=== PATIENT | female | born 1940 | race Caucasian/White ===

== ENCOUNTER 2017-11-16 20:03 | Inpatient (IN) | payer OTHER ==
--- NOTE | 2017-11-16 20:20 | PDOC ---
Rapid Medical Evaluation Chief Complaint: Pain Time Seen by Provider: 11/16/17 20:19 Medical Evaluation: Allergies Allergy/AdvReac Type Severity Reaction Status Date / Time No Known Allergies Allergy Verified 11/16/17 20:18 11/16/17 20:19 I have performed a brief in-person evaluation of this patient. The patient presents with a chief complaint of: months of diffuse abd pain, now to back, worsening today Pertinent physical exam findings: febrile to 101F, tachy to 127 I have ordered the following: septic The patient will proceed to the ED for further evaluation. Discharge Disposition - Diagnosis Abdominal pain - Referrals - Patient Instructions - Post Discharge Activity
[2017-11-16 20:23] VITALS: BMI 27.3
[2017-11-16 20:52] LABS: VENOUS PC02 42.6 mmHg (38-52); VENOUS PH 7.43 (7.32-7.42)
[2017-11-16 21:00] LABS: BASO % 0.3 % (0-2.0); EOS % 0.3 % (0-4.5); HEMATOCRIT 35.9 % (32.4-45.2); HEMOGLOBIN 12.3 GM/dL (10.7-15.3); LYMPH % 12.1 % (8-40); MCH 29.5 pg (25.7-33.7); MCHC 34.2 g/dl (32.0-36.0); MEAN CELL VOLUME 86.3 fl (80-96); MEAN PLT VOLUME 7.5 fl (7.5-11.1); MONO % 6.6 % (3.8-10.2); NEUT % 80.7 % (42.8-82.8); PLATELET COUNT 319 K/MM3 (134-434); RBC 4.16 M/mm3 (3.60-5.2); RDW 14.4 % (11.6-15.6); WHITE BLOOD COUNT 16.9 K/mm3 (4.0-10.0)
[2017-11-16 21:20] LABS: INR 1.11 (0.82-1.09); PROTHROMBIN TIME (PATIENT) 12.5 SEC (9.7-13.0)
[2017-11-16 21:23] LABS: ACTIVATED PTT 33.4 SECONDS (26.9-34.4)
[2017-11-16 21:29] LABS: ALBUMIN 3.5 g/dl (3.4-5.0); ALK PHOS 92 U/L (45-117); ANION GAP 6 (8-16); BILIRUBIN,TOTAL 0.5 mg/dL (0.2-1.0); BLOOD UREA NITROGEN 13 mg/dL (7-18); CALCIUM 8.6 mg/dL (8.5-10.1); CHLORIDE 100 mmol/L (98-107); CO2 28 mmol/L (21-32); CREATININE 0.7 mg/dL (0.55-1.02); GLUCOSE,RANDOM 150 mg/dL (74-106); POTASSIUM 3.9 mmol/L (3.5-5.1); SGOT/AST 9 U/L (15-37); SGPT/ALT 15 U/L (12-78); SODIUM 134 mmol/L (136-145); TOT PROT 7.3 g/dl (6.4-8.2)
--- NOTE | 2017-11-16 22:16 | PDOC ---
History of Present Illness - General Chief Complaint: Pain Stated Complaint: ABD PAIN Time Seen by Provider: 11/16/17 20:19 - History of Present Illness Initial Comments: 11/17/17 02:12 The patient is a 77 year old female with a history of HLD, DM, Diverticulosis who presents for evaluation of abdominal pain. The patient is accompanied by family who assisted in providing the history. They report a several month history of poorly described diffuse abdominal pain with associated diarrhea and nausea. They deny any recent antibiotic use but due note a history of diverticulosis and diverticulitis. They noted worsening pain today with fevers prompting their presentation to the ED for evaluation. The patient otherwise denies chills, SOB, chest pain, vomiting, or changes with urination. Past History - Past Medical History Allergies/Adverse Reactions: Allergies Allergy/AdvReac Type Severity Reaction Status Date / Time No Known Allergies Allergy Verified 11/16/17 20:18 COPD: No Diabetes: (Prediabetes) Hypercholesterolemia: Yes - Suicide/Smoking/Psychosocial Hx Smoking History: Never smoked Have you smoked in the past 12 months: No If you are a former smoker, when did you quit?: 3 yrs ago Information on smoking cessation initiated: No Hx Alcohol Use: No Drug/Substance Use Hx: No Substance Use Type: None Review of Systems - Review of Systems Comments:: 11/17/17 02:43 Constitutional: Fevers. No chills, fatigue, malaise HEENT: No Rhinorrhea, nasal congestion, visual changes Cardiovascular: No chest pain, syncope, palpitations, lightheadedness Respiratory: No Cough, SOB, Hemoptysis, Gastrointestinal: Abdominal pain, Nausea, Diarrhea. No Vomiting, Constipation, Melena Genitourinary: No Dysuria, Frequency, Urgency, Hesitancy, Hematuria, Flank pain Musculoskeletal: No Myalgia, arthralgia Skin: No rashes, itching, bruising, pallor Neurologic: No Headache, Dizziness, Numbness, Weakness, or Tingling Psychiatric: No Hallucinations. No SI or HI *Physical Exam - Vital Signs Last Vital Signs Temp Pulse Resp BP Pulse Ox 100.5 F H 127 H 20 144/69 96 11/16/17 22:12 11/16/17 20:18 11/16/17 20:18 11/16/17 20:18 11/16/17 20:18 - Physical Exam Comments: 11/17/17 02:44 General Appearance: Nourished. No Apparent Distress HEENT: EOMI, LAKHWINDER. No Pharyngeal Erythema, Tonsillar Exudate, Tonsillar Erythema Neck: No Cervical Lymphadenopathy Respiratory/Chest: Lungs Clear, Normal Breath Sounds. No Crackles, Rales, Rhonchi, Wheezing Cardiovascular: Regular Rhythm, Regular Rate. No Murmur, Gallops, Rubs Gastrointestinal/Abdominal: Normal Bowel Sounds, Soft. Diffuse tenderness to palpation worse in the lower abdomen with some mild guarding. No Rebound, Musculoskeletal: No CVA Tenderness Extremity: Normal Capillary Refill Integumentary: Normal Color, Dry, Warm Neurologic: Fully Oriented, Alert, Normal Mood/Affect, Normal Response, Heart Score/ECG Review #1 ECG reviewed & interpreted by me at: 06:14 (Sinus Tachycardia to 112) General ECG Interpretation: Sinus Rhythm, Normal Intervals, No acute ischemic changes ED Treatment Course - LABORATORY CBC & Chemistry Diagram: 11/16/17 20:40 11/16/17 20:40 - ADDITIONAL ORDERS Additional order review: Laboratory Results 11/16/17 11/16/17 11/16/17 20:40 20:40 20:40 VBG pH POC VBG pCO2 POC VBG pO2 Mixed VBG HCO3 Sodium 134 L Potassium 3.9 Chloride 100 Carbon Dioxide 28 Anion Gap 6 L BUN 13 Creatinine 0.7 Creat Clearance w eGFR > 60 Random Glucose 150 H Lactic Acid 1.5 Calcium 8.6 Total Bilirubin 0.5 AST 9 L ALT 15 Alkaline Phosphatase 92 Troponin I < 0.02 Total Protein 7.3 Albumin 3.5 11/16/17 20:40 VBG pH 7.43 H POC VBG pCO2 42.6 POC VBG pO2 31.0 Mixed VBG HCO3 27.6 H Sodium Potassium Chloride Carbon Dioxide Anion Gap BUN Creatinine Creat Clearance w eGFR Random Glucose Lactic Acid Calcium Total Bilirubin AST ALT Alkaline Phosphatase Troponin I Total Protein Albumin 11/16/17 20:40 RBC 4.16 MCV 86.3 MCHC 34.2 RDW 14.4 MPV 7.5 Neutrophils % 80.7 D Lymphocytes % 12.1 D Monocytes % 6.6 Eosinophils % 0.3 D Basophils % 0.3 Medical Decision Making - Medical Decision Making 11/17/17 02:46 The patient is a 77 year old female with a history of HLD, DM, Diverticulosis who presents for evaluation of abdominal pain. Differential includes but is not limited to: Diverticulitis, UTI, Sepsis, Infectious, metabolic derangement. Given the patient's history of diverticulitis, it is likely her current symptoms are due to a diverticulitis. We will obtain a cbc, cmp, troponin, blood cultures, lactate, ua, ekg, chest plain film, and abdomen/pelvis ct to evaluate further. We will treat with iv fluids, zofran, and iv tylenol in the meantime. We will continue to monitor and reassess. 11/17/17 05:18 CBC demonstrates elevated wbc to 16.9. cmp, troponin, lactate, ua are unremarkable. CT abdomen/pelvis demonstrates a cystic mass possibly consistent with an abscess adjacent to the sigmoid colon as preliminarily read by our mason liner radiologist. The patient will require admission for further management at this time. We treat the patient with zosyn here in the ED. We discussed the case with the hospitalist team who accepted the patient for admission. *DC/Admit/Observation/Transfer Diagnosis at time of Disposition: Abdominal pain Qualifiers: Abdominal location: unspecified location Qualified Code(s): R10.9 - Unspecified abdominal pain Sepsis Qualifiers: Sepsis type: sepsis due to unspecified organism Qualified Code(s): A41.9 - Sepsis, unspecified organism - Discharge Dispostion Condition at time of disposition: Stable Admit: Yes - Referrals Referrals: Godfrey Dumont MD [Primary Care Provider] - - Patient Instructions - Post Discharge Activity
--- NOTE | 2017-11-16 22:21 | PDOC ---
Attending Attestation - HPI HPI: 11/17/17 02:14 Patient is a 77 year old female with a significant past medical history of who presents to the ED with complaints of abdominal pain that began earlier this year. Patient reports experiencing gradually worsening abdominal pain that she states began several months ago but has recently begun to radiate to her back. She reports abdominal pain is currently the worst it has ever been, prompting her to come into the ED for further evaluation. Patient reports experiencing associated symptoms of increased fever and diffuse body tenderness, nausea and intermittent diarrhea. . Denies chest pain, Sob, Denies nausea, vomiting. Denies trauma to affected area. Denies constipation, dysuria, hematuria. Denies contact with sick individuals, out of state travelling. Denies any other symptoms. Allergies: NKDA Social history: No smoking. No alcohol. No illicit drugs. Surgical history: None PMD: Dr. Dumont <Jeffy Wallace - Last Filed: 11/17/17 02:14> - Resident Resident Name: Corby Matthews - ED Attending Attestation I have performed the following: I have examined & evaluated the patient, The case was reviewed & discussed with the resident, I agree w/resident's findings & plan, Exceptions are as noted - Physicial Exam PE: GENERAL: Awake, alert, and fully oriented, in no acute distress HEAD: No signs of trauma EYES: PERRLA, EOMI, sclera anicteric, conjunctiva clear ENT: Auricles normal inspection, hearing grossly normal, nares patent, oropharynx clear without exudates. Moist mucosa NECK: Normal ROM, supple, no lymphadenopathy, JVD, or masses LUNGS: Breath sounds equal, clear to auscultation bilaterally. No wheezes, and no crackles HEART: Regular rate and rhythm, normal S1 and S2, no murmurs, rubs or gallops ABDOMEN: Soft, +BLQ tenderness, normoactive bowel sounds. +Guarding, no rebound. No masses EXTREMITIES: Normal range of motion, no edema. No clubbing or cyanosis. No cords, erythema, or tenderness NEUROLOGICAL: Cranial nerves II through XII grossly intact. Normal speech, normal gait SKIN: Warm, Dry, normal turgor, no rashes or lesions noted. - Medical Decision Making Pt presents with abdominal pain. Found to have fever, tachycardia. CT a/p obtained to further evaluate, found to have mass/collection. Treated with abx to cover abdominal bull. Admitted for further management. <Donna Burch - Last Filed: 11/17/17 06:38>
[2017-11-16] MEDS ORDERED: ACETAMINOPHEN 1000 MG/100 ML VIAL (NON FORMULARY) IVPB ONE (22:38)
[2017-11-16] MEDS ORDERED: SODIUM CHLORIDE 1,000 ML IV STA (22:38)
[2017-11-16] MEDS ORDERED: ONDANSETRON 4 MG/2 ML VIAL IVPUSH ONE (22:38)
[2017-11-16] MEDS ORDERED: ACETAMINOPHEN INJECTION 100 ML IVPB ONE (23:00)
[2017-11-16] MEDS ORDERED: ONDANSETRON 4 MG/2 ML VIAL ONE (23:00)
[2017-11-16 23:32] LABS: URINE APPEARANCE SLCLOUDY; URINE BILIRUBIN NEGATIVE (<2.0 mg/dL); URINE COLOR YELLOW; URINE GLUCOSE (UA) NEGATIVE (NEGATIVE); URINE KETONE TRACE (NEGATIVE); URINE LEUK ESTERASE NEGATIVE (NEGATIVE); URINE NITRITE NEGATIVE (NEGATIVE); URINE PROTEIN NEGATIVE (NEGATIVE); URINE UROBILINOGEN NEGATIVE mg/dL (0.2-1.0)
[2017-11-16 23:37] LABS: EPI CELLS RARE /HPF (FEW); URINE MUCUS RARE
[2017-11-17] MEDS ORDERED: PIPERACILLIN/TAZOB 3.375 GM 3.375 GM in DEXTROSE 5%-WATER - 50 ML IVPB ONE (03:42)
[2017-11-17] MEDS ORDERED: PIPERACILLIN/TAZOB 3.375 GM 3.375 GM/50 ML BAG IVPB ONE (04:23)
[2017-11-17] MEDS ORDERED: ONDANSETRON 4 MG/2 ML VIAL IVPUSH PRN (05:23)
[2017-11-17] MEDS: DEXTROSE 5%-0.45% SALINE 1,000 ML IV SCH (05:44)
[2017-11-17] MEDS ORDERED: SODIUM CHLORIDE 1,000 ML IV STA (06:14)
[2017-11-17] MEDS ORDERED: ACETAMINOPHEN 1000 MG/100 ML VIAL (NON FORMULARY) IVPB ONE (06:14)
[2017-11-17] MEDS ORDERED: ACETAMINOPHEN INJECTION 100 ML IVPB ONE (06:21)
--- NOTE | 2017-11-17 08:57 | PN ---
Progress Note (short form) - Note Progress Note: ID Full note dictated Presents with lower abd pain chronic getting worse fever 10lb weight loss TANYA Apparently has a lung mass RLL known about before From [facility] in 30 years complains dysuria Selected Entries 11/16/17 11/17/17 20:18 06:16 Temperature 101.0 F H Pulse Rate 127 H Respiratory 20 Rate Blood Pressure 144/69 O2 Sat by Pulse 96 93 L Oximetry (%) Weight 140 lb Abd soft lower abd discomfort no guarding rebound pain mild-mod CT prelim per ER mass collection Microbiology Laboratory Tests 11/16/17 11/16/17 11/16/17 20:40 20:40 20:40 WBC 16.9 H D Hgb 12.3 Hct 35.9 Plt Count 319 INR 1.11 BUN 13 Creat Clearance w eGFR > 60 Total Bilirubin 0.5 AST 9 L ALT 15 Alkaline Phosphatase 92 Ur Leukocyte Esterase Urine WBC (Auto) Urine RBC (Auto) 11/16/17 23:07 WBC Hgb Hct Plt Count INR BUN Creat Clearance w eGFR Total Bilirubin AST ALT Alkaline Phosphatase Ur Leukocyte Esterase Negative Urine WBC (Auto) 4 Urine RBC (Auto) 5 Assessment Intrabd abscess "mass" Sepsis ? Lung mass Plan Surgical consult Ceftriaxone metronidazole CRP Quant edy Carney MD Problem List - Problems (1) Intra-abdominal abscess Code(s): K65.1 - PERITONEAL ABSCESS (2) Sepsis Code(s): A41.9 - SEPSIS, UNSPECIFIED ORGANISM Qualifiers: Sepsis type: sepsis due to unspecified organism Qualified Code(s): A41.9 - Sepsis, unspecified organism (3) Lung mass Code(s): R91.8 - OTHER NONSPECIFIC ABNORMAL FINDING OF LUNG FIELD
[2017-11-17 09:33] LABS: BASO % 0.3 % (0-2.0); EOS % 0.3 % (0-4.5); HEMATOCRIT 33.1 % (32.4-45.2); HEMOGLOBIN 10.9 GM/dL (10.7-15.3); LYMPH % 11.2 % (8-40); MCH 28.6 pg (25.7-33.7); MEAN CELL VOLUME 86.6 fl (80-96); MEAN PLT VOLUME 7.1 fl (7.5-11.1); MONO % 7.5 % (3.8-10.2); NEUT % 80.7 % (42.8-82.8); PLATELET COUNT 300 K/MM3 (134-434); RBC 3.82 M/mm3 (3.60-5.2); RDW 14.7 % (11.6-15.6); WHITE BLOOD COUNT 19.3 K/mm3 (4.0-10.0)
[2017-11-17] MEDS ORDERED: DEXTROSE 5%-WATER 100 ML IVPB ONE (09:38)
--- NOTE | 2017-11-17 09:40 | CONS ---
INFECTIOUS DISEASE CONSULTATION DATE OF CONSULTATION: 11/17/2017 HISTORY OF PRESENT ILLNESS: This is a 77[facility] who presents to the emergency room with lower abdominal pain which she says has been present for several months. She sees Dr. Sadler as an outpatient, and currently, I am unaware of her prior medical workup for her pain. She also notes a generalized loss of appetite and associated with 10 pounds of weight loss during these preceding months. She came now noting that the abdominal pain became more severe and was associated here with fever and leukocytosis. She also noted urinary burning. She was given a dose of antibiotic in the emergency room, and I am asked to see her for further evaluation and treatment. Incidental mention is made of a CAT scan performed on November 14, 2017, which was a followup to a June 2017 CAT scan which showed a 4 x 2 x 3 cm pleural-based mass-like density in the right lower lobe, unchanged. The etiology of this was unclear. The patient notes a history of heavy smoking for many years, and a PET scan had been recommended with tissue sampling. I am not sure if this was actually performed at this time. PAST MEDICAL HISTORY: Otherwise negative for diabetes, hypertension. PAST SURGICAL HISTORY: No prior surgery. SOCIAL HISTORY: Former smoker. No history of substance abuse, alcohol. FAMILY HISTORY: Noncontributory. REVIEW OF SYSTEMS: Respiratory: No cough, hemoptysis. Cardiac: No chest pain, palpitations, syncope. Gastrointestinal: As noted in history of present illness. No vomiting. No diarrhea. No constipation. Genitourinary: Dysuria. No gross hematuria. Neuromuscular: No joint pain. Skin: No rash. PHYSICAL EXAMINATION: General: She was a well-nourished appearing woman in no acute distress. Vital Signs: Her temperature maximum 101. Currently, the pulse was 110, blood pressure 116/71, respirations 18, O2 saturation 93%. Neck: Supple with no adenopathy. Lungs: Clear to percussion and auscultation. Heart: S1 and S2. Regular rhythm without audible murmur or gallop. Abdomen: Soft. Normoactive bowel sounds. [id number] tenderness noted along the lower abdomen. No guarding or rebound. No palpable mass appreciated. DIAGNOSTIC DATA: The white count was 16.9, hemoglobin 12.3, platelets of 319 with 81% polys, 12 lymphs, 6 monocytes. BUN of 13, creatinine 0.7. Liver enzymes within normal limit. Total protein 7.3. Urinalysis: WBCs 4, RBCs 5, negative leukocyte esterase. ASSESSMENT: A 77-year-old female presents with worsening lower abdominal pain associated with fever and a leukocytosis. Preliminary CAT scan per the ER mentions possible abscess/mass. Official report currently pending. I do not actually see the image itself in the radiology digital file. This needs to be pursued with Radiology for definitive reading. She will be empirically placed on ceftriaxone and metronidazole for possible diverticulitis and intraabdominal abscess. Surgical consultation should be obtained and has been requested with Dr. France. Regarding the mass, this appears incidental to what brought her here now, but nevertheless, given her prior smoking history, is concerning given the possibility of a pulmonary neoplasm. Additionally, she is from [facility], and the possibility of tuberculosis appearing as a mass also considered. PLAN: CRP, blood cultures, urine culture, empiric therapy with ceftriaxone and metronidazole, surgical consultation, and QuantiFERON Gold. Obtain official CT reading of CAT scan. PARKER RODRIGUEZ M.D. SAMANTHA/[id number]
[2017-11-17 10:00] LABS: AMYLASE 18 U/L (25-115); ANION GAP 6 (8-16); BLOOD UREA NITROGEN 10 mg/dL (7-18); CALCIUM 7.9 mg/dL (8.5-10.1); CHLORIDE 104 mmol/L (98-107); CO2 28 mmol/L (21-32); CREATININE 0.7 mg/dL (0.55-1.02); GLUCOSE,RANDOM 154 mg/dL (74-106); LIPASE 50 U/L (73-393); MAGNESIUM 1.7 mg/dL (1.8-2.4); POTASSIUM 3.5 mmol/L (3.5-5.1); SODIUM 138 mmol/L (136-145)
[2017-11-17] MEDS ORDERED: PIPERACILLIN/TAZOB 3.375 GM 3.375 GM in DEXTROSE 5%-WATER - 50 ML IVPB SCH (10:00)
[2017-11-17] MEDS: HEPARIN NA (PORCINE) 5,000 UNITS/ML 1ML VIAL SQ SCH ×2 (10:23→21:35)
[2017-11-17] MEDS: CEFTRIAXONE 2 GM in DEXTROSE 5%-WATER 100 ML IVPB SCH (10:23)
--- NOTE | 2017-11-17 11:10 | PN ---
Progress Note, Physician Chief Complaint: Abdominal pain History of Present Illness: NAD, in bed CT abd preliminary ER report, abdominal abscess - Current Medication List Current Medications: Active Medications Acetaminophen (Ofirmev Injection -) 1,000 mg IVPB Q6H PRN PRN Reason: PAIN OR FEVER Heparin Sodium (Porcine) (Heparin -) 5,000 unit SQ BID [facility] Last Admin: 11/17/17 10:23 Dose: 5,000 unit Dextrose/Sodium Chloride (D5-1/2ns -) 1,000 mls @ 42 mls/hr IV ASDIR LYNN Last Admin: 11/17/17 05:44 Dose: 42 mls/hr Ceftriaxone Sodium 2 gm/ (Dextrose) 100 mls @ 200 mls/hr IVPB DAILY LYNN PRN Reason: Protocol Last Admin: 11/17/17 10:23 Dose: 200 mls/hr Metronidazole (Flagyl 500mg Premixed Ivpb -) 500 mg in 100 mls @ 100 mls/hr IVPB Q8H-IV LYNN Ondansetron HCl (Zofran Injection) 4 mg IVPUSH Q6H PRN PRN Reason: NAUSEA - Objective Vital Signs: Vital Signs Temperature 98.6 F 11/17/17 09:56 Pulse Rate 82 11/17/17 09:56 Respiratory Rate 18 11/17/17 09:56 Blood Pressure 104/53 11/17/17 09:56 O2 Sat by Pulse Oximetry (%) 99 11/17/17 09:56 Constitutional: Yes: Well Nourished, No Distress, Calm Cardiovascular: Yes: Regular Rate and Rhythm Respiratory: Yes: Regular Gastrointestinal: Yes: Normal Bowel Sounds, Soft, Tenderness Musculoskeletal: Yes: WNL Extremities: Yes: WNL Edema: No Peripheral Pulses WNL: Yes Neurological: Yes: Alert, Oriented Psychiatric: Yes: Alert, Oriented Labs: CBC, BMP 11/17/17 09:05 11/17/17 09:05 INR, PTT INR 1.11 (0.82-1.09) 11/16/17 20:40 Problem List - Problems (1) Abdominal pain Assessment/Plan: -CT abdomen final report pending -pain management -IVF -Surgical consult -GI consult -also check CEA, has history of Lung CA Code(s): R10.9 - UNSPECIFIED ABDOMINAL PAIN Qualifiers: Abdominal location: unspecified location Qualified Code(s): R10.9 - Unspecified abdominal pain (2) Intra-abdominal abscess Assessment/Plan: -CT abdomen final report pending -pain management -IVF -Surgical consult -NPO IV abx -ID consult appreciated Code(s): K65.1 - PERITONEAL ABSCESS (3) Sepsis Assessment/Plan: -IVF -repeat labs in AM Code(s): A41.9 - SEPSIS, UNSPECIFIED ORGANISM Qualifiers: Sepsis type: sepsis due to unspecified organism Qualified Code(s): A41.9 - Sepsis, unspecified organism (4) Leukocytosis Assessment/Plan: -monitor trend -ID conult -IV abx Code(s): D72.829 - ELEVATED WHITE BLOOD CELL COUNT, UNSPECIFIED Assessment/Plan see problem list DVT prophylaxis spoke to daughter over the phone, she will bring in patient's medication list for reconciliation
--- NOTE | 2017-11-17 11:14 | HP ---
Admitting History and Physical - Primary Care Physician PCP: Reva Sadler - Admission Chief Complaint: ABDOMINAL PAIN History of Present Illness: The patient is a 77 year old female with a history of HLD, DM, Diverticulosis who presents for evaluation of abdominal pain. The patient is accompanied by family who assisted in providing the history. They report a several month history of poorly described diffuse abdominal pain with associated diarrhea and nausea. They deny any recent antibiotic use but due note a history of diverticulosis and diverticulitis. They noted worsening pain today with fevers prompting their presentation to the ED for evaluation. The patient otherwise denies chills, SOB, chest pain, vomiting, or changes with urination. History Source: Patient, Medical Record Limitations to Obtaining History: No Limitations - Past Medical History ...: No - Smoking History Smoking history: Former smoker Have you smoked in the past 12 months: No If you are a former smoker, when did you quit?: 3 yrs ago - Alcohol/Substance Use Hx Alcohol Use: No Home Medications - Allergies Allergies/Adverse Reactions: Allergies Allergy/AdvReac Type Severity Reaction Status Date / Time No Known Allergies Allergy Verified 11/16/17 20:18 Review of Systems - Review of Systems Constitutional: reports: No Symptoms Eyes: reports: No Symptoms HENT: reports: No Symptoms Neck: reports: No Symptoms Cardiovascular: reports: No Symptoms Respiratory: reports: No Symptoms Gastrointestinal: reports: Abdominal Pain Genitourinary: reports: No Symptoms Breasts: reports: No Symptoms Reported Musculoskeletal: reports: No Symptoms Integumentary: reports: No Symptoms Neurological: reports: No Symptoms Endocrine: reports: No Symptoms Hematology/Lymphatic: reports: No Symptoms Psychiatric: reports: No Symptoms Physical Examination Vital Signs: Vital Signs Temperature 98.6 F 11/17/17 09:56 Pulse Rate 82 11/17/17 09:56 Respiratory Rate 18 11/17/17 09:56 Blood Pressure 104/53 11/17/17 09:56 O2 Sat by Pulse Oximetry (%) 99 11/17/17 09:56 Constitutional: Yes: Well Nourished, No Distress, Calm Cardiovascular: Yes: Regular Rate and Rhythm Respiratory: Yes: Regular Gastrointestinal: Yes: Normal Bowel Sounds, Soft, Tenderness Musculoskeletal: Yes: WNL Extremities: Yes: WNL Edema: No Peripheral Pulses WNL: Yes Neurological: Yes: Alert, Oriented Psychiatric: Yes: Alert, Oriented Labs: CBC, BMP 11/17/17 09:05 11/17/17 09:05 Imaging - Results Cat Scan: Pending (FINAL REPORT) Problem List - Problems (1) Abdominal pain Assessment/Plan: -CT abdomen final report pending -pain management -IVF -Surgical consult -GI consult -also check CEA Code(s): R10.9 - UNSPECIFIED ABDOMINAL PAIN Qualifiers: Abdominal location: unspecified location Qualified Code(s): R10.9 - Unspecified abdominal pain (2) Intra-abdominal abscess Assessment/Plan: -CT abdomen final report pending -pain management -IVF -Surgical consult -NPO -IV abx -ID consult appreciated Code(s): K65.1 - PERITONEAL ABSCESS (3) Sepsis Assessment/Plan: -IVF -repeat labs in AM Code(s): A41.9 - SEPSIS, UNSPECIFIED ORGANISM Qualifiers: Sepsis type: sepsis due to unspecified organism Qualified Code(s): A41.9 - Sepsis, unspecified organism (4) Leukocytosis Assessment/Plan: -monitor trend -ID conult -IV abx Code(s): D72.829 - ELEVATED WHITE BLOOD CELL COUNT, UNSPECIFIED Assessment/Plan see problem list DVT prophylaxis spoke to daughter over the phone, she will bring in patient's medication list for reconciliation
--- NOTE | 2017-11-17 11:30 | EKG ---
Test Reason : Blood Pressure : / mmHG Vent. Rate : 112 BPM Atrial Rate : 112 BPM P-R Int : 142 ms QRS Dur : 076 ms QT Int : 320 ms P-R-T Axes : 072 027 079 degrees QTc Int : 436 ms SINUS TACHYCARDIA OTHERWISE NORMAL ECG NO PREVIOUS ECGS AVAILABLE Confirmed by MINA REECE MD ([id number]) on 11/17/2017 11:30:11 AM Referred By: Confirmed By:MINA REECE MD
[2017-11-17] MEDS: morphine SULFATE 4 MG/ML VIAL IVPUSH PRN (12:02)
--- NOTE | 2017-11-17 13:15 | CONSULT ---
- Consultation REQUESTING PROVIDER: Jim SALEEM CONSULT REQUEST: We have been asked to surgically evaluate this patient for LLQ abdominal pain of ? 6 months duration; now worse. PCP:Reva Sadler HISTORY OF PRESENT ILLNESS:77 y/o female w/known diverticular disease presented w/n and sharp unrelenting LLQ pain of > 6 hours duration; she came to the ED for evaluation; she states she is slightly better since admission; she has never had this before; she denies any other GI//SYSTEMS MANAGER problem. PMHx: none PSHx: TAHBSO Allergies Allergy/AdvReac Type Severity Reaction Status Date / Time No Known Allergies Allergy Verified 11/16/17 20:18 PHYSICAL EXAM: GENERAL: Awake, alert, and fully oriented, in slight distress. HEAD: Normal with no signs of trauma. EYES: sclera anicteric, conjunctiva clear. NECK: Normal ROM, supple without lymphadenopathy, JVD, or masses. ABDOMEN: Soft, LLQ tender w/guarding, not distended, normoactive bowel sounds, no rebound, no masses. No organomegaly. No hernias; healed surgical scar. MUSCULOSKELETAL: Normal ROM at all joints. No bony deformities or tenderness. No CVA tenderness. UPPER EXTREMITIES: 2+ pulses, warm, well-perfused. No cyanosis. Cap refill <2 seconds. No peripheral edema. LOWER EXTREMITIES: 2+ pulses, warm, well-perfused. No calf tenderness. No peripheral edema. NEUROLOGICAL: Normal speech, gait not observed. PSYCH: Cooperative. Good eye contact. Appropriate mood and affect. SKIN: Warm, dry, normal turgor, no rashes or lesions noted. Vital Signs Temperature 98.6 F 11/17/17 09:56 Pulse Rate 82 11/17/17 09:56 Respiratory Rate 18 11/17/17 09:56 Blood Pressure 104/53 11/17/17 09:56 O2 Sat by Pulse Oximetry (%) 99 11/17/17 09:56 Lab Results WBC 19.3 K/mm3 (4.0-10.0) H 11/17/17 09:05 RBC 3.82 M/mm3 (3.60-5.2) 11/17/17 09:05 Hgb 10.9 GM/dL (10.7-15.3) D 11/17/17 09:05 Hct 33.1 % (32.4-45.2) 11/17/17 09:05 MCV 86.6 fl (80-96) 11/17/17 09:05 MCHC 33.0 g/dl (32.0-36.0) 11/17/17 09:05 RDW 14.7 % (11.6-15.6) 11/17/17 09:05 Plt Count 300 K/MM3 (134-434) 11/17/17 09:05 Sodium 138 mmol/L (136-145) 11/17/17 09:05 Potassium 3.5 mmol/L (3.5-5.1) 11/17/17 09:05 Chloride 104 mmol/L (98-107) 11/17/17 09:05 Carbon Dioxide 28 mmol/L (21-32) 11/17/17 09:05 Anion Gap 6 (8-16) L 11/17/17 09:05 BUN 10 mg/dL (7-18) 11/17/17 09:05 Creatinine 0.7 mg/dL (0.55-1.02) 11/17/17 09:05 Random Glucose 154 mg/dL (74-106) H 11/17/17 09:05 Calcium 7.9 mg/dL (8.5-10.1) L 11/17/17 09:05 INR 1.11 (0.82-1.09) 11/16/17 20:40 CT scan a/p reviewed IMP: Sigmoid diverticulitis w/localized perforation and abscess formation PLAN: Suggest NPO/IVF/IVABS/evaluation for IR drainage; d/w patient in [place] all that precedes; in adddition d/w her if she does not respond to conservative non operative tx. she will need a Hartmans procedure; she understands this; will f/u. Ghassan France MD FACS Visit type - Case Type Case Type: ED Admission - Emergency Emergency Visit: Yes ED Registration Date: 11/17/17 Care time: The patient presented to the Emergency Department on the above date and was hospitalized for further evaluation of their emergent condition. - New patient This patient is new to me today: Yes Date on this admission: 11/17/17 - Critical Care Critical Care patient: No
[2017-11-17] MEDS: ACETAMINOPHEN 1000 MG/100 ML VIAL (NON FORMULARY) IVPB PRN (13:59)
--- NOTE | 2017-11-17 14:20 | CON.GI ---
Consult Consult Specialty:: Gastroenterology Referred by:: Dr Sadler - History of Present Illness History of Present Illness: 77 y/o F has chronic lower abdominal pain which has become worse yesterday, / unable to walk, no nausea and no vomiting. CT done which revealed a 5cm pelvic abscess associated with worsenning WBC 19,000 and Tmax of 102 - History Source History Provided By: Patient - Past Medical History ...: No - Alcohol/Substance Use Hx Alcohol Use: No - Smoking History Smoking history: Former smoker Have you smoked in the past 12 months: No If you are a former smoker, when did you quit?: 3 yrs ago Home Medications - Allergies Allergies/Adverse Reactions: Allergies Allergy/AdvReac Type Severity Reaction Status Date / Time No Known Allergies Allergy Verified 11/16/17 20:18 - Home Medications Home Medications: Ambulatory Orders Oxycodone HCl/Acetaminophen [Oxycodone-Acetaminophen 5-325] 1 each PO Q6H PRN Physical Exam-GI Vital Signs: Vital Signs Temperature 98.6 F 11/17/17 09:56 Pulse Rate 82 11/17/17 09:56 Respiratory Rate 18 11/17/17 09:56 Blood Pressure 104/53 11/17/17 09:56 O2 Sat by Pulse Oximetry (%) 99 11/17/17 09:56 Constitutional: Yes: Well Nourished, Poor Hygeine HENT: Yes: Atraumatic Neck: Yes: Supple, Tenderness Respiratory: Yes: CTA Bilaterally ...Palpate: Yes: Guarding, Soft, Tenderness (llq). No: Hepatomegaly, Mass, Pulsatile Mass, Splenomegaly Labs: CBC, BMP 11/17/17 09:05 11/17/17 09:05 INR, PTT INR 1.11 (0.82-1.09) 11/16/17 20:40 Problem List - Problems (1) Pelvic abscess Assessment/Plan: patient will need percutaneous drainage by IR discussed with Dr Gomez agrees to have percutaneous drainage discussed clinical condtion and necessity of the procedure with the whole family spent more than 45 min to coordinate care Code(s): [id number] -
[2017-11-18] MEDS: ACETAMINOPHEN 1000 MG/100 ML VIAL (NON FORMULARY) IVPB PRN ×2 (01:27→17:25)
[2017-11-18] MEDS: DEXTROSE 5%-0.45% SALINE 1,000 ML IV SCH ×2 (04:00→21:07)
--- NOTE | 2017-11-18 08:31 | PN ---
Progress Note, Physician Chief Complaint: ID Marked clinical improvement Ceftriaxone and metronidazole - Current Medication List Current Medications: Active Medications Acetaminophen (Ofirmev Injection -) 1,000 mg IVPB Q6H PRN PRN Reason: PAIN OR FEVER Last Admin: 11/18/17 01:27 Dose: 1,000 mg Heparin Sodium (Porcine) (Heparin -) 5,000 unit SQ BID LYNN Last Admin: 11/17/17 21:35 Dose: 5,000 unit Dextrose/Sodium Chloride (D5-1/2ns -) 1,000 mls @ 42 mls/hr IV ASDIR LYNN Last Admin: 11/18/17 04:00 Dose: 42 mls/hr Ceftriaxone Sodium 2 gm/ (Dextrose) 100 mls @ 200 mls/hr IVPB DAILY LYNN PRN Reason: Protocol Last Admin: 11/17/17 10:23 Dose: 200 mls/hr Metronidazole (Flagyl 500mg Premixed Ivpb -) 500 mg in 100 mls @ 100 mls/hr IVPB Q8H-IV LYNN Last Admin: 11/18/17 01:27 Dose: 100 mls/hr Morphine Sulfate (Morphine Sulfate) 1 mg IVPUSH Q4H PRN PRN Reason: PAIN LEVEL 6-10 Last Admin: 11/17/17 12:02 Dose: 1 mg Ondansetron HCl (Zofran Injection) 4 mg IVPUSH Q6H PRN PRN Reason: NAUSEA - Objective Vital Signs: Vital Signs Temperature 99.3 F 11/18/17 05:00 Pulse Rate 87 11/18/17 05:00 Respiratory Rate 18 11/18/17 05:00 Blood Pressure 98/49 11/18/17 05:00 O2 Sat by Pulse Oximetry (%) 100 11/17/17 20:55 Constitutional: Yes: Well Nourished, No Distress Eyes: Yes: WNL, Conjunctiva Clear HENT: Yes: WNL, Atraumatic Neck: Yes: WNL, Supple Cardiovascular: Yes: Regular Rate and Rhythm, Murmur, S1, S2 Respiratory: Yes: WNL, Regular, CTA Bilaterally. No: Rales, Rhonchi Gastrointestinal: Yes: WNL, Normal Bowel Sounds, Soft, Tenderness, Epigastrium, Other (Drain left side). No: Tenderness Edema: No Labs: CBC, BMP 11/17/17 09:05 11/17/17 09:05 INR, PTT INR 1.11 (0.82-1.09) 11/16/17 20:40 Problem List - Problems (1) Intra-abdominal abscess Code(s): K65.1 - PERITONEAL ABSCESS (2) Sepsis Code(s): A41.9 - SEPSIS, UNSPECIFIED ORGANISM Qualifiers: Sepsis type: sepsis due to unspecified organism Qualified Code(s): A41.9 - Sepsis, unspecified organism (3) Lung mass Code(s): R91.8 - OTHER NONSPECIFIC ABNORMAL FINDING OF LUNG FIELD Assessment/Plan Microbiology 11/16/17 20:40 Blood - Peripheral Venous Blood Culture - Preliminary NO GROWTH OBTAINED AFTER 24 HOURS, INCUBATION TO CONTINUE FOR 4 DAYS. 11/16/17 20:40 Blood - Peripheral Venous Blood Culture - Preliminary NO GROWTH OBTAINED AFTER 24 HOURS, INCUBATION TO CONTINUE FOR 4 DAYS. Laboratory Tests 11/16/17 11/17/17 11/17/17 20:40 09:05 09:05 WBC 19.3 H Hgb 10.9 D Hct 33.1 Plt Count 300 BUN 10 Creatinine 0.7 Random Glucose 154 H Lactic Acid 1.5 C-Reactive Protein 16.3 H Assessment Perforated diverticulitis abscess improved Plan Antibiotics as ordered Angelika SCHUMACHER
[2017-11-18] MEDS ORDERED: DEXTROSE 5%-WATER 100 ML IVPB ONE (10:00)
[2017-11-18] MEDS: HEPARIN NA (PORCINE) 5,000 UNITS/ML 1ML VIAL SQ SCH ×2 (10:02→21:06)
[2017-11-18] MEDS: CEFTRIAXONE 2 GM in DEXTROSE 5%-WATER 100 ML IVPB SCH (10:02)
--- NOTE | 2017-11-18 10:14 | PN ---
Progress Note, Physician Chief Complaint: Abdominal pain Abdominal Abscess History of Present Illness: NAD, in bed marked improvement in pain and clinical condition Abscess drained by IR yesterday, NIKOLAS in place- draining moderate amount of serosanguinous fluid seen by ID on IV abx - Current Medication List Current Medications: Active Medications Acetaminophen (Ofirmev Injection -) 1,000 mg IVPB Q6H PRN PRN Reason: PAIN OR FEVER Last Admin: 11/18/17 01:27 Dose: 1,000 mg Heparin Sodium (Porcine) (Heparin -) 5,000 unit SQ BID L[facility]NN Last Admin: 11/18/17 10:02 Dose: 5,000 unit Dextrose/Sodium Chloride (D5-1/2ns -) 1,000 mls @ 42 mls/hr IV ASDIR [facility] Last Admin: 11/18/17 04:00 Dose: 42 mls/hr Ceftriaxone Sodium 2 gm/ (Dextrose) 100 mls @ 200 mls/hr IVPB DAILY L[facility]NN PRN Reason: Protocol Last Admin: 11/18/17 10:02 Dose: 200 mls/hr Metronidazole (Flagyl 500mg Premixed Ivpb -) 500 mg in 100 mls @ 100 mls/hr IVPB Q8H-IV [facility] Last Admin: 11/18/17 01:27 Dose: 100 mls/hr Morphine Sulfate (Morphine Sulfate) 1 mg IVPUSH Q4H PRN PRN Reason: PAIN LEVEL 6-10 Last Admin: 11/17/17 12:02 Dose: 1 mg Ondansetron HCl (Zofran Injection) 4 mg IVPUSH Q6H PRN PRN Reason: NAUSEA - Objective Vital Signs: Vital Signs Temperature 99.3 F 11/18/17 05:00 Pulse Rate 87 11/18/17 05:00 Respiratory Rate 18 11/18/17 05:00 Blood Pressure 98/49 11/18/17 05:00 O2 Sat by Pulse Oximetry (%) 100 11/17/17 20:55 Constitutional: Yes: Well Nourished, No Distress, Calm Cardiovascular: Yes: Regular Rate and Rhythm Respiratory: Yes: Regular Gastrointestinal: Yes: Normal Bowel Sounds, Soft Musculoskeletal: Yes: Muscle Weakness Extremities: Yes: WNL Edema: No Peripheral Pulses WNL: Yes Wound/Incision: Yes: Dressing Dry and Intact, Other (NIKOLAS draining) Neurological: Yes: Alert, Oriented Psychiatric: Yes: Alert, Oriented Labs: CBC, BMP 11/17/17 09:05 11/17/17 09:05 INR, PTT INR 1.11 (0.82-1.09) 11/16/17 20:40 Problem List - Problems (1) Abdominal pain Assessment/Plan: markedly improved -morphine IVP PRN Code(s): R10.9 - UNSPECIFIED ABDOMINAL PAIN Qualifiers: Abdominal location: unspecified location Qualified Code(s): R10.9 - Unspecified abdominal pain (2) Intra-abdominal abscess Assessment/Plan: -NIKOLAS drain -monitor output -pain management -IV abx -GI and ID on board Code(s): K65.1 - PERITONEAL ABSCESS (3) Sepsis Assessment/Plan: -repeat labs, monitor trend -low grade fevers overnight Code(s): A41.9 - SEPSIS, UNSPECIFIED ORGANISM Qualifiers: Sepsis type: sepsis due to unspecified organism Qualified Code(s): A41.9 - Sepsis, unspecified organism (4) Leukocytosis Assessment/Plan: -repeat labs Code(s): D72.829 - ELEVATED WHITE BLOOD CELL COUNT, UNSPECIFIED Assessment/Plan see problem list Physical therapy
[2017-11-18 11:02] LABS: BASO % 0.6 % (0-2.0); EOS % 2.3 % (0-4.5); HEMATOCRIT 32.7 % (32.4-45.2); HEMOGLOBIN 10.9 GM/dL (10.7-15.3); LYMPH % 12.7 % (8-40); MCH 29.2 pg (25.7-33.7); MCHC 33.5 g/dl (32.0-36.0); MEAN CELL VOLUME 87.1 fl (80-96); MEAN PLT VOLUME 6.9 fl (7.5-11.1); MONO % 5.2 % (3.8-10.2); NEUT % 79.2 % (42.8-82.8); PLATELET COUNT 256 K/MM3 (134-434); RBC 3.75 M/mm3 (3.60-5.2); RDW 14.7 % (11.6-15.6); WHITE BLOOD COUNT 17.2 K/mm3 (4.0-10.0)
[2017-11-18 11:31] LABS: CHLORIDE 105 mmol/L (98-107); POTASSIUM 3.5 mmol/L (3.5-5.1); SODIUM 139 mmol/L (136-145)
[2017-11-18 11:37] LABS: ALBUMIN 2.5 g/dl (3.4-5.0); ALK PHOS 84 U/L (45-117); ANION GAP 5 (8-16); BILIRUBIN,TOTAL 0.3 mg/dL (0.2-1.0); BLOOD UREA NITROGEN 8 mg/dL (7-18); CALCIUM 7.9 mg/dL (8.5-10.1); CO2 29 mmol/L (21-32); CREATININE 0.6 mg/dL (0.55-1.02); GLUCOSE,RANDOM 141 mg/dL (74-106); SGOT/AST 7 U/L (15-37); SGPT/ALT 11 U/L (12-78); TOT PROT 5.7 g/dl (6.4-8.2)
--- NOTE | 2017-11-18 14:09 | PN ---
GI Progress Note Subjective: s/p pelvic abscess drainage, abdominal pain is less, Tmax 98, has diarrhea after clear liquids - Objective Vital Signs: Vital Signs Temperature 98.6 F 11/18/17 09:00 Pulse Rate 73 11/18/17 09:00 Respiratory Rate 18 11/18/17 09:00 Blood Pressure 127/54 11/18/17 09:00 O2 Sat by Pulse Oximetry (%) 100 11/18/17 09:00 Constitutional: Well Nourished Eyes: Yes: Conjunctiva Clear HENT: Yes: Atraumatic Neck: Yes: Supple Cardiovascular: Yes: Regular Rate and Rhythm Respiratory: Yes: CTA Bilaterally ...Auscultate: Yes: Normoactive Bowel Sounds ...Palpate: Yes: Soft, Tenderness (rebound tenderness tresolved, direct tenderness llq , improved from yesterday). No: Firm/Rigid, Guarding, Hepatomegaly, Mass Labs: CBC, BMP 11/18/17 10:45 11/18/17 10:45 INR, PTT INR 1.11 (0.82-1.09) 11/16/17 20:40 Problem List - Problems (1) Pelvic abscess Assessment/Plan: resolving' R> continue IV hydration and antibiotics discussed with her daughter clinical findings today Code(s): [id number] -
[2017-11-18] MEDS: morphine SULFATE 4 MG/ML VIAL IVPUSH PRN (17:03)
--- NOTE | 2017-11-18 20:55 | PN ---
Progress Note (short form) - Note Progress Note: Attending Surgeon Feels better; tolerated liquids S/P IRD of diverticular abscess VSS AF abdo-soft; LLQ tenderness present but less; NIKOLAS drainage seropurulent IMP: improved PLAN: Continue present tx. Ghassan France MD FACS
[2017-11-19 07:33] LABS: BASO % 0.3 % (0-2.0); EOS % 6.4 % (0-4.5); HEMATOCRIT 33.9 % (32.4-45.2); HEMOGLOBIN 11.2 GM/dL (10.7-15.3); LYMPH % 16.1 % (8-40); MCH 28.7 pg (25.7-33.7); MEAN PLT VOLUME 7.5 fl (7.5-11.1); MONO % 4.8 % (3.8-10.2); NEUT % 72.4 % (42.8-82.8); PLATELET COUNT 293 K/MM3 (134-434); RBC 3.89 M/mm3 (3.60-5.2); RDW 14.4 % (11.6-15.6)
[2017-11-19 07:57] LABS: ALBUMIN 2.6 g/dl (3.4-5.0); ALK PHOS 91 U/L (45-117); ANION GAP 5 (8-16); BILIRUBIN,TOTAL 0.3 mg/dL (0.2-1.0); BLOOD UREA NITROGEN 6 mg/dL (7-18); CALCIUM 7.8 mg/dL (8.5-10.1); CHLORIDE 107 mmol/L (98-107); CO2 27 mmol/L (21-32); CREATININE 0.5 mg/dL (0.55-1.02); GLUCOSE,RANDOM 109 mg/dL (74-106); POTASSIUM 3.4 mmol/L (3.5-5.1); SGPT/ALT 9 U/L (12-78); SODIUM 139 mmol/L (136-145)
[2017-11-19 07:59] LABS: SGOT/AST 9 U/L (15-37); TOT PROT 5.7 g/dl (6.4-8.2)
[2017-11-19] MEDS: DEXTROSE 5%-0.45% SALINE 1,000 ML IV SCH ×2 (08:50→22:20)
[2017-11-19] MEDS ORDERED: DEXTROSE 5%-WATER 100 ML IVPB ONE (08:57)
[2017-11-19] MEDS: HEPARIN NA (PORCINE) 5,000 UNITS/ML 1ML VIAL SQ SCH ×2 (09:08→22:21)
[2017-11-19] MEDS: morphine SULFATE 4 MG/ML VIAL IVPUSH PRN (09:08)
[2017-11-19] MEDS: CEFTRIAXONE 2 GM in DEXTROSE 5%-WATER 100 ML IVPB SCH (09:08)
--- NOTE | 2017-11-19 10:33 | PN ---
Progress Note, Physician Chief Complaint: ID Overall much better Ceftriaxone and metronidazole - Current Medication List Current Medications: Active Medications Acetaminophen (Ofirmev Injection -) 1,000 mg IVPB Q6H PRN PRN Reason: PAIN OR FEVER Last Admin: 11/18/17 17:25 Dose: 1,000 mg Heparin Sodium (Porcine) (Heparin -) 5,000 unit SQ BID LYNN Last Admin: 11/19/17 09:08 Dose: 5,000 unit Dextrose/Sodium Chloride (D5-1/2ns -) 1,000 mls @ 42 mls/hr IV ASDIR LYNN Last Admin: 11/19/17 08:50 Dose: Not Given Ceftriaxone Sodium 2 gm/ (Dextrose) 100 mls @ 200 mls/hr IVPB DAILY L[facility]NN PRN Reason: Protocol Last Admin: 11/19/17 09:08 Dose: 200 mls/hr Metronidazole (Flagyl 500mg Premixed Ivpb -) 500 mg in 100 mls @ 100 mls/hr IVPB Q8H-IV [facility] Last Admin: 11/19/17 09:08 Dose: 100 mls/hr Morphine Sulfate (Morphine Sulfate) 1 mg IVPUSH Q4H PRN PRN Reason: PAIN LEVEL 6-10 Last Admin: 11/19/17 09:08 Dose: 1 mg Ondansetron HCl (Zofran Injection) 4 mg IVPUSH Q6H PRN PRN Reason: NAUSEA - Objective Vital Signs: Vital Signs Temperature 98.3 F 11/19/17 06:19 Pulse Rate 78 11/19/17 06:19 Respiratory Rate 20 11/19/17 06:19 Blood Pressure 114/62 11/19/17 06:19 O2 Sat by Pulse Oximetry (%) 98 11/18/17 20:30 Constitutional: Yes: Well Nourished, No Distress HENT: Yes: WNL, Atraumatic Neck: Yes: WNL, Supple Respiratory: Yes: WNL, Regular, CTA Bilaterally Gastrointestinal: Yes: Soft, Other (Tneder LLQ drain) Labs: CBC, BMP 11/19/17 06:03 11/19/17 06:03 INR, PTT INR 1.11 (0.82-1.09) 11/16/17 20:40 Problem List - Problems (1) Intra-abdominal abscess Code(s): K65.1 - PERITONEAL ABSCESS (2) Sepsis Code(s): A41.9 - SEPSIS, UNSPECIFIED ORGANISM Qualifiers: Sepsis type: sepsis due to unspecified organism Qualified Code(s): A41.9 - Sepsis, unspecified organism (3) Lung mass Code(s): R91.8 - OTHER NONSPECIFIC ABNORMAL FINDING OF LUNG FIELD Assessment/Plan Microbiology 11/17/17 17:00 Abscess Gram Stain - Final 11/17/17 17:00 Abscess Body Fluid Culture - Preliminary Non Lactose Fermenting Gnb Non Lactose Fermenting Gnb#2 11/16/17 20:40 Blood - Peripheral Venous Blood Culture - Preliminary NO GROWTH OBTAINED AFTER 48 HOURS, INCUBATION TO CONTINUE FOR 3 DAYS. 11/16/17 20:40 Blood - Peripheral Venous Blood Culture - Preliminary NO GROWTH OBTAINED AFTER 48 HOURS, INCUBATION TO CONTINUE FOR 3 DAYS. Laboratory Tests 11/18/17 11/19/17 10:45 06:03 WBC 17.2 H 13.0 H Hgb 11.2 Hct 33.9 Plt Count 293 Assessment Diverticulitis with abscess Post insertion drain Plan Continue current therapy pending c/s Angelika SCHUMACHER
[2017-11-19] MEDS ORDERED: ACETAMINOPHEN 325 MG TABLET (FP) PO PRN (12:45)
[2017-11-19] MEDS ORDERED: morphine SULFATE 4 MG/ML VIAL IVPUSH PRN (13:09)
--- NOTE | 2017-11-19 13:15 | PN ---
Progress Note, Physician Chief Complaint: s/p diverticular abscess drain on iv abx complaining of epigastric pain - Current Medication List Current Medications: Active Medications Acetaminophen (Tylenol -) 650 mg PO Q6H PRN PRN Reason: PAIN OR FEVER Heparin Sodium (Porcine) (Heparin -) 5,000 unit SQ BID [facility] Last Admin: 11/19/17 09:08 Dose: 5,000 unit Dextrose/Sodium Chloride (D5-1/2ns -) 1,000 mls @ 42 mls/hr IV ASDIR [facility] Last Admin: 11/19/17 08:50 Dose: Not Given Ceftriaxone Sodium 2 gm/ (Dextrose) 100 mls @ 200 mls/hr IVPB DAILY LYNN PRN Reason: Protocol Last Admin: 11/19/17 09:08 Dose: 200 mls/hr Metronidazole (Flagyl 500mg Premixed Ivpb -) 500 mg in 100 mls @ 100 mls/hr IVPB Q8H-IV [facility] Last Admin: 11/19/17 09:08 Dose: 100 mls/hr Morphine Sulfate (Morphine Sulfate) 2 mg IVPUSH Q4H PRN PRN Reason: PAIN LEVEL 6-10 Ondansetron HCl (Zofran Injection) 4 mg IVPUSH Q6H PRN PRN Reason: NAUSEA - Objective Vital Signs: Vital Signs Temperature 98.3 F 11/19/17 09:00 Pulse Rate 80 11/19/17 09:00 Respiratory Rate 20 11/19/17 09:00 Blood Pressure 121/51 11/19/17 09:00 O2 Sat by Pulse Oximetry (%) 96 11/19/17 09:00 Constitutional: Yes: Calm Neck: Yes: Trachea Midline Cardiovascular: Yes: Regular Rate and Rhythm, S1, S2 Respiratory: Yes: CTA Bilaterally Gastrointestinal: Yes: Tenderness, Epigastrium, Other (LLQ drain serosanginous drainage) Edema: No Neurological: Yes: Alert, Oriented Labs: CBC, BMP 11/19/17 06:03 11/19/17 06:03 INR, PTT INR 1.11 (0.82-1.09) 11/16/17 20:40 Problem List - Problems (1) Intra-abdominal abscess Assessment/Plan: iv abx- s/p drain leukocystosis trending down Microbiology 11/17/17 17:00 Abscess Gram Stain - Final 11/17/17 17:00 Abscess Body Fluid Culture - Preliminary Non Lactose Fermenting Gnb Non Lactose Fermenting Gnb#2 Code(s): K65.1 - PERITONEAL ABSCESS (2) Leukocytosis Assessment/Plan: on iv abx awaiting final cultures Code(s): D72.829 - ELEVATED WHITE BLOOD CELL COUNT, UNSPECIFIED (3) Abdominal pain Assessment/Plan: iv protonix clear liquid diet morphine increase to 2mg Code(s): R10.9 - UNSPECIFIED ABDOMINAL PAIN Qualifiers: Abdominal location: unspecified location Qualified Code(s): R10.9 - Unspecified abdominal pain (4) Electrolyte abnormality Assessment/Plan: replete potassium recheck Magnesium Code(s): E87.8 - OTH DISORDERS OF ELECTROLYTE AND FLUID BALANCE, NEC
[2017-11-19] MEDS: PANTOPRAZOLE SODIUM 40 MG VIAL IVPUSH SCH (13:24)
[2017-11-19] MEDS ORDERED: POTASSIUM CHLORIDE ORAL LIQUID 20 MEQ/15 ML PO ONE (13:30)
--- NOTE | 2017-11-19 14:50 | PN ---
Progress Note (short form) - Note Progress Note: Attending Surgeon No c/o; tolerating diet; much less pain; liquid stools VSS AF abdo-benign; drain in place; minimal seropurulent output WBC 13.0 cultures noted IMP: doing well PLAN: Repeat CT later this week; continue present tx. Ghassan France MD FACS.
[2017-11-20 08:02] LABS: BASO % 0.6 % (0-2.0); EOS % 13.8 % (0-4.5); HEMATOCRIT 33.7 % (32.4-45.2); HEMOGLOBIN 11.4 GM/dL (10.7-15.3); LYMPH % 21.9 % (8-40); MCH 29.2 pg (25.7-33.7); MCHC 33.8 g/dl (32.0-36.0); MEAN CELL VOLUME 86.4 fl (80-96); MEAN PLT VOLUME 7.3 fl (7.5-11.1); MONO % 6.3 % (3.8-10.2); NEUT % 57.4 % (42.8-82.8); PLATELET COUNT 325 K/MM3 (134-434); RDW 14.5 % (11.6-15.6); WHITE BLOOD COUNT 9.3 K/mm3 (4.0-10.0)
[2017-11-20 08:47] LABS: ALBUMIN 2.5 g/dl (3.4-5.0); ALK PHOS 83 U/L (45-117); ANION GAP 4 (8-16); BILIRUBIN,TOTAL 0.3 mg/dL (0.2-1.0); BLOOD UREA NITROGEN 4 mg/dL (7-18); CHLORIDE 108 mmol/L (98-107); CO2 29 mmol/L (21-32); CREATININE 0.5 mg/dL (0.55-1.02); GLUCOSE,RANDOM 116 mg/dL (74-106); MAGNESIUM 2.1 mg/dL (1.8-2.4); POTASSIUM 3.7 mmol/L (3.5-5.1); SGOT/AST 9 U/L (15-37); SGPT/ALT 8 U/L (12-78); SODIUM 141 mmol/L (136-145); TOT PROT 5.8 g/dl (6.4-8.2)
[2017-11-20] MEDS ORDERED: DEXTROSE 5%-WATER 100 ML IVPB ONE (10:07)
[2017-11-20] MEDS: CEFTRIAXONE 2 GM in DEXTROSE 5%-WATER 100 ML IVPB SCH (10:10)
[2017-11-20] MEDS: PANTOPRAZOLE SODIUM 40 MG VIAL IVPUSH SCH (10:10)
[2017-11-20] MEDS: HEPARIN NA (PORCINE) 5,000 UNITS/ML 1ML VIAL SQ SCH ×2 (10:10→21:19)
[2017-11-20] MEDS: DEXTROSE 5%-0.45% SALINE 1,000 ML IV SCH (10:10)
--- NOTE | 2017-11-20 11:05 | PN ---
Progress Note (short form) - Note Progress Note: Attending Surgeon No c/o VSS AF abdo-benign; drain in place; minimal output WBC-nl IMP: improved PLAN: F/U CT 11/21/17; continue present tx.; advance diet.
--- NOTE | 2017-11-20 12:59 | PN ---
Progress Note, Physician - Current Medication List Current Medications: Active Medications Acetaminophen (Tylenol -) 650 mg PO Q6H PRN PRN Reason: PAIN OR FEVER Amino Acids (Prosource No Carb Liquid Pkt) 30 ml PO BID@0800,1730 [facility] Heparin Sodium (Porcine) (Heparin -) 5,000 unit SQ BID [facility] Last Admin: 11/20/17 10:10 Dose: 5,000 unit Dextrose/Sodium Chloride (D5-1/2ns -) 1,000 mls @ 42 mls/hr IV ASDIR [facility] Last Admin: 11/20/17 10:10 Dose: Not Given Ceftriaxone Sodium 2 gm/ (Dextrose) 100 mls @ 200 mls/hr IVPB DAILY [facility] PRN Reason: Protocol Last Admin: 11/20/17 10:10 Dose: 200 mls/hr Metronidazole (Flagyl 500mg Premixed Ivpb -) 500 mg in 100 mls @ 100 mls/hr IVPB Q8H-IV [facility] Last Admin: 11/20/17 10:10 Dose: 100 mls/hr Morphine Sulfate (Morphine Sulfate) 2 mg IVPUSH Q4H PRN PRN Reason: PAIN LEVEL 6-10 Ondansetron HCl (Zofran Injection) 4 mg IVPUSH Q6H PRN PRN Reason: NAUSEA Pantoprazole Sodium (Protonix Iv) 40 mg IVPUSH DAILY [facility] Last Admin: 11/20/17 10:10 Dose: 40 mg - Objective Vital Signs: Vital Signs Temperature 98.3 F 11/20/17 06:05 Pulse Rate 76 11/20/17 06:05 Respiratory Rate 20 11/20/17 06:05 Blood Pressure 112/62 11/20/17 06:05 O2 Sat by Pulse Oximetry (%) 98 11/20/17 09:00 Labs: CBC, BMP 11/20/17 06:00 11/20/17 06:00 INR, PTT INR 1.11 (0.82-1.09) 11/16/17 20:40 Problem List - Problems (1) Intra-abdominal abscess Assessment/Plan: iv abx- s/p drain leukocystosis trending down Microbiology 11/17/17 17:00 Abscess Gram Stain - Final 11/17/17 17:00 Abscess Body Fluid Culture - Preliminary Non Lactose Fermenting Gnb Non Lactose Fermenting Gnb#2 Microbiology 11/17/17 17:00 Abscess Gram Stain - Final 11/17/17 17:00 Abscess Anaerobic Culture - Final NO ANAEROBES WERE ISOLATED 11/17/17 17:00 Abscess Body Fluid Culture - Preliminary Escherichia Coli Esbl Rn Transitional Care to get ID to come back see the patient and adjust abx if needed contact isolation repeat CT scan today mininmal drainage Code(s): K65.1 - PERITONEAL ABSCESS (2) Leukocytosis Assessment/Plan: leukocytosis trending down- now normal no fever EBS-ecoli isolation ID follow up Code(s): D72.829 - ELEVATED WHITE BLOOD CELL COUNT, UNSPECIFIED (3) Abdominal pain Assessment/Plan: iv protonix clear liquid diet morphine increase to 2mg Code(s): R10.9 - UNSPECIFIED ABDOMINAL PAIN Qualifiers: Abdominal location: unspecified location Qualified Code(s): R10.9 - Unspecified abdominal pain (4) Electrolyte abnormality Assessment/Plan: potassium and magnesium now normal Code(s): E87.8 - OTH DISORDERS OF ELECTROLYTE AND FLUID BALANCE, NEC
[2017-11-20] MEDS ORDERED: hydrOXYzine HCL 10 MG TABLET PO PRN (15:44)
--- NOTE | 2017-11-20 15:46 | PN ---
Progress Note (short form) - Note Progress Note: patient has papular rash on upper arms and neck fold bilaterally and on upper back also complaining of vaginal itchiness noted to have whitish discharge on exam plan dermatiis derm consult atarax triamcinolone clotrimazole vaginal inserts Problem List - Problems (1) Intra-abdominal abscess Code(s): K65.1 - PERITONEAL ABSCESS (2) Leukocytosis Code(s): D72.829 - ELEVATED WHITE BLOOD CELL COUNT, UNSPECIFIED (3) Abdominal pain Code(s): R10.9 - UNSPECIFIED ABDOMINAL PAIN Qualifiers: Abdominal location: unspecified location Qualified Code(s): R10.9 - Unspecified abdominal pain (4) Electrolyte abnormality Code(s): E87.8 - OTH DISORDERS OF ELECTROLYTE AND FLUID BALANCE, NEC
[2017-11-20] MEDS: AMINO ACIDS/PROTEIN HYDROLYS 30 ML LIQUID.PKT PO SCH (16:32)
--- NOTE | 2017-11-20 17:52 | PN ---
GI Progress Note Subjective: tolerating diet.abdominal painresolved, patient noted to have ESBL - Objective Vital Signs: Vital Signs Temperature 98.5 F 11/20/17 17:01 Pulse Rate 80 11/20/17 17:01 Respiratory Rate 20 11/20/17 17:01 Blood Pressure 128/75 11/20/17 17:01 O2 Sat by Pulse Oximetry (%) 98 11/20/17 09:00 Constitutional: Well Nourished Eyes: Yes: Conjunctiva Clear HENT: Yes: Atraumatic Neck: Yes: Supple Cardiovascular: Yes: Regular Rate and Rhythm Respiratory: Yes: CTA Bilaterally ...Palpate: Yes: Soft. No: Firm/Rigid, Guarding, Hepatomegaly, Mass, Pulsatile Mass, Splenomegaly, Tenderness Labs: CBC, BMP 11/20/17 06:00 11/20/17 06:00 INR, PTT INR 1.11 (0.82-1.09) 11/16/17 20:40 Problem List - Problems (1) Pelvic abscess Assessment/Plan: resolving R> will repeat ct without contrast in am cea,ca125 Code(s): [id number] -
[2017-11-20] MEDS ORDERED: FLU VACCINE QUAD 60 MCG/0.5 ML (MDV 17-18) IM ONE (18:30)
[2017-11-20] MEDS ORDERED: PNEUMOC 13-VAL CONJ-DIP CRM/PF 0.5 ML DISP.SYRIN IM ONE (18:30)
[2017-11-20] MEDS: CLOTRIMAZOLE 1% VAGINAL CREAM WITH APPLICATOR 45 GM TUBE VG SCH (21:19)
[2017-11-20] MEDS: TRIAMCINOLONE ACET 0.1% CREAM 15 GM TUBE TP SCH (21:19)
[2017-11-20] MEDS ORDERED: PT OWN MED DRAWER 7, Y5N ONE (21:42)
[2017-11-21] MEDS ORDERED: DEXTROSE 5%-WATER 100 ML IVPB ONE (08:41)
[2017-11-21] MEDS: CEFTRIAXONE 2 GM in DEXTROSE 5%-WATER 100 ML IVPB SCH (10:32)
[2017-11-21] MEDS: AMINO ACIDS/PROTEIN HYDROLYS 30 ML LIQUID.PKT PO SCH ×2 (10:33→17:25)
[2017-11-21] MEDS: TRIAMCINOLONE ACET 0.1% CREAM 15 GM TUBE TP SCH ×2 (10:33→22:10)
[2017-11-21] MEDS: PANTOPRAZOLE SODIUM 40 MG VIAL IVPUSH SCH (10:33)
[2017-11-21] MEDS: HEPARIN NA (PORCINE) 5,000 UNITS/ML 1ML VIAL SQ SCH ×2 (10:33→22:10)
--- NOTE | 2017-11-21 10:55 | PN ---
Progress Note (short form) - Note Progress Note: Pt states that her bowel movements are a little bit more solid. Still having lower abd pain. Awaiting to go to CT today for repeat CT scan. Vital Signs Period Temp Pulse Resp BP Sys/Paulson Pulse Ox Last 24 Hr 98.4 F-99 F 76-88 18-20 127-143/59-75 96 NIKOLAS-20ml serous GEN: appears comfortable ABD: soft, non-distended, Mild LLQ tenderness CBC, BMP 11/20/17 06:00 11/20/17 06:00 Microbiology 11/17/17 17:00 Abscess Gram Stain - Final 11/17/17 17:00 Abscess Anaerobic Culture - Final Escherichia Coli Esbl Clinical Trials Systems Administrator NO ANAEROBES WERE ISOLATED 11/16/17 20:40 Blood - Peripheral Venous Blood Culture - Preliminary NO GROWTH OBTAINED AFTER 96 HOURS, INCUBATION TO CONTINUE FOR 1 DAYS. 11/16/17 20:40 Blood - Peripheral Venous Blood Culture - Preliminary NO GROWTH OBTAINED AFTER 96 HOURS, INCUBATION TO CONTINUE FOR 1 DAYS. Problem List - Problems (1) Pelvic abscess Assessment/Plan: s/p IR drainage of absess, f/u repeat CT scan today ID follow up for repeat cultures Continue diet as tolerated D/w Dr. France Code(s): [id number] -
--- NOTE | 2017-11-21 11:14 | PN ---
Progress Note, Physician Chief Complaint: FAMILY BEDSIDE PATIENT IS COMFORTABLE C/O DARK BLACK, AND YELLOW STOOL NO FEVERS NO N/V - Current Medication List Current Medications: Active Medications Acetaminophen (Tylenol -) 650 mg PO Q6H PRN PRN Reason: PAIN OR FEVER Amino Acids (Prosource No Carb Liquid Pkt) 30 ml PO BID@0800,1730 [facility] Last Admin: 11/21/17 10:33 Dose: 30 ml Clotrimazole (Gyne-Lotrimin -) 1 applic VG HS [facility] Stop: 11/22/17 22:01 Last Admin: 11/20/17 21:19 Dose: 1 applic Heparin Sodium (Porcine) (Heparin -) 5,000 unit SQ BID [facility] Last Admin: 11/21/17 10:33 Dose: 5,000 unit Hydroxyzine HCl (Atarax -) 10 mg PO Q6H PRN PRN Reason: pruritis Dextrose/Sodium Chloride (D5-1/2ns -) 1,000 mls @ 42 mls/hr IV ASDIR [facility] Last Admin: 11/20/17 10:10 Dose: Not Given Ceftriaxone Sodium 2 gm/ (Dextrose) 100 mls @ 200 mls/hr IVPB DAILY [facility] PRN Reason: Protocol Last Admin: 11/21/17 10:32 Dose: 200 mls/hr Metronidazole (Flagyl 500mg Premixed Ivpb -) 500 mg in 100 mls @ 100 mls/hr IVPB Q8H-IV [facility] Last Admin: 11/21/17 10:32 Dose: 100 mls/hr Morphine Sulfate (Morphine Sulfate) 2 mg IVPUSH Q4H PRN PRN Reason: PAIN LEVEL 6-10 Ondansetron HCl (Zofran Injection) 4 mg IVPUSH Q6H PRN PRN Reason: NAUSEA Pantoprazole Sodium (Protonix Iv) 40 mg IVPUSH DAILY [facility] Last Admin: 11/21/17 10:33 Dose: 40 mg Triamcinolone Acetonide (Aristocort 0.1% Cream -) 1 applic TP BID [facility] Last Admin: 11/21/17 10:33 Dose: 1 applic - Objective Vital Signs: Vital Signs Temperature 98.6 F 11/21/17 10:00 Pulse Rate 72 11/21/17 10:00 Respiratory Rate 18 11/21/17 10:00 Blood Pressure 142/62 11/21/17 10:00 O2 Sat by Pulse Oximetry (%) 96 11/21/17 10:00 Constitutional: Yes: No Distress Eyes: Yes: WNL HENT: Yes: WNL Neck: Yes: WNL Cardiovascular: Yes: WNL Respiratory: Yes: WNL Gastrointestinal: Yes: Tenderness (DRAIN) Genitourinary: Yes: Other Musculoskeletal: Yes: Muscle Weakness Extremities: Yes: WNL Edema: No Peripheral Pulses WNL: Yes Integumentary: Yes: WNL Wound/Incision: Yes: Draining Neurological: Yes: WNL ...Motor Strength: WNL Psychiatric: Yes: WNL Labs: CBC, BMP 11/20/17 06:00 11/20/17 06:00 INR, PTT INR 1.11 (0.82-1.09) 11/16/17 20:40 Problem List - Problems (1) Abdominal pain Code(s): R10.9 - UNSPECIFIED ABDOMINAL PAIN Qualifiers: Abdominal location: unspecified location Qualified Code(s): R10.9 - Unspecified abdominal pain (2) Intra-abdominal abscess Code(s): K65.1 - PERITONEAL ABSCESS (3) Leukocytosis Code(s): D72.829 - ELEVATED WHITE BLOOD CELL COUNT, UNSPECIFIED (4) Sepsis Code(s): A41.9 - SEPSIS, UNSPECIFIED ORGANISM Qualifiers: Sepsis type: sepsis due to unspecified organism Qualified Code(s): A41.9 - Sepsis, unspecified organism Assessment/Plan NPO FOR CT SCAN ABD AWAIT RESULTS KEEP NPO UNTIL CT SCAN RESULTS RETURN WITH SURGERY F/U DVT PROPHYLAXIS OOB TO CHAIR INCENTIVE SPIROMETRY LACTOBACILUS STARTED ESBL+ ON ABX PER ID
[2017-11-21] MEDS: LACTOBACILLUS ACIDOPHILUS 1 TABLET PO SCH (11:33)
[2017-11-21] MEDS ORDERED: TRIAMCINOLONE ACET 0.1% CREAM 15 GM TUBE TP SCH (13:15)
[2017-11-21] MEDS: DEXTROSE 5%-0.45% SALINE 1,000 ML IV SCH (17:26)
[2017-11-21] MEDS: ERTAPENEM SODIUM 1 GM in SODIUM CHLORIDE 50 ML IVPB SCH (18:08)
[2017-11-21] MEDS ORDERED: PT OWN MED DRAWER 7, Y5N ONE (21:08)
[2017-11-21] MEDS: CLOTRIMAZOLE 1% VAGINAL CREAM WITH APPLICATOR 45 GM TUBE VG SCH (23:56)
[2017-11-22] MEDS ORDERED: PT OWN MED DRAWER 7, Y5N ONE ×2 (00:38→08:50)
[2017-11-22] MEDS: CLOTRIMAZOLE 1% VAGINAL CREAM WITH APPLICATOR 45 GM TUBE VG SCH ×2 (00:43→21:19)
[2017-11-22] MEDS: DEXTROSE 5%-0.45% SALINE 1,000 ML IV SCH ×2 (06:16→21:14)
--- NOTE | 2017-11-22 08:37 | PN ---
Progress Note (short form) - Note Progress Note: No acute events per RN notes. Doing well. States LLQ pain greatly improved since admit to hospital. +BMs (formed). Tolerating regular diet. Denies n/v/f/c, CP or SOB. Repeat ABD/PELVIS CT: s/p perc drain with cath seated within abscess cavity...significantly less compared to initial study. Last Vital Signs Temp Pulse Resp BP Pulse Ox 98.9 F 79 18 132/71 96 11/22/17 06:40 11/22/17 06:40 11/22/17 06:40 11/22/17 06:40 11/21/17 10:00 CBC, BMP 11/20/17 06:00 11/20/17 06:00 IR DRAIN 11/20/17 11/20/17 11/21/17 07:38 17:37 07:02 NIKOLAS 15 5 5 Microbiology 11/17/17 17:00 Abscess Gram Stain - Final --> Escherichia Coli Esbl Geriatric Nurse Practitioner , NO ANAEROBES WERE ISOLATED PE GEN: alert. nad. ABD: soft, non-distended, mild LLQ ttp LE: soft. NT bilat Problem List - Problems (1) Intra-abdominal abscess Assessment/Plan: Diet as tolerated ID for ABX Cont medical management OOB and ambulate Tylenol for Fever > 100.3F Code(s): K65.1 - PERITONEAL ABSCESS
[2017-11-22] MEDS: AMINO ACIDS/PROTEIN HYDROLYS 30 ML LIQUID.PKT PO SCH ×2 (09:03→17:18)
[2017-11-22] MEDS: LACTOBACILLUS ACIDOPHILUS 1 TABLET PO SCH (09:03)
[2017-11-22] MEDS: PANTOPRAZOLE SODIUM 40 MG VIAL IVPUSH SCH (09:03)
[2017-11-22] MEDS: HEPARIN NA (PORCINE) 5,000 UNITS/ML 1ML VIAL SQ SCH ×2 (09:03→21:15)
[2017-11-22] MEDS: TRIAMCINOLONE ACET 0.1% CREAM 15 GM TUBE TP SCH ×2 (09:04→21:19)
[2017-11-22] MEDS: ERTAPENEM SODIUM 1 GM in SODIUM CHLORIDE 50 ML IVPB SCH (10:30)
--- NOTE | 2017-11-22 11:15 | PN ---
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 Consideration of Daily IV infusion outpt should be considered Contact isolation Angelika SCHUMACHER Problem List - Problems (1) Intra-abdominal abscess Code(s): K65.1 - PERITONEAL ABSCESS (2) Sepsis Code(s): A41.9 - SEPSIS, UNSPECIFIED ORGANISM Qualifiers: Sepsis type: sepsis due to unspecified organism Qualified Code(s): A41.9 - Sepsis, unspecified organism (3) Lung mass Code(s): R91.8 - OTHER NONSPECIFIC ABNORMAL FINDING OF LUNG FIELD
[2017-11-22] MEDS ORDERED: PICC LINE 8 ML FLUSH PROTOCOL IVPUSH PRN (11:17)
--- NOTE | 2017-11-22 11:20 | PN ---
Progress Note, Physician Chief Complaint: PATIENT SEEN AND EXAMINED WITH NURSE C/O RECTAL PAIN - Current Medication List Current Medications: Active Medications Acetaminophen (Tylenol -) 650 mg PO Q6H PRN PRN Reason: PAIN OR FEVER Amino Acids (Prosource No Carb Liquid Pkt) 30 ml PO BID@0800,1730 [facility] Last Admin: 11/22/17 09:03 Dose: 30 ml Clotrimazole (Gyne-Lotrimin -) 1 applic VG HS [facility] Stop: 11/22/17 22:01 Last Admin: 11/22/17 00:43 Dose: 1 applic Heparin Sodium (Porcine) (Heparin -) 5,000 unit SQ BID [facility] Last Admin: 11/22/17 09:03 Dose: 5,000 unit Hydrocortisone Acetate (Cortifoam 10% -) [address] DAILY [facility] Hydroxyzine HCl (Atarax -) 10 mg PO Q6H PRN PRN Reason: pruritis IV Flush (Picc Line Flush) 8 ml IVPUSH PRN PRN PRN Reason: Protocol Dextrose/Sodium Chloride (D5-1/2ns -) 1,000 mls @ 42 mls/hr IV ASDIR [facility] Last Admin: 11/22/17 06:16 Dose: 42 mls/hr Metronidazole (Flagyl 500mg Premixed Ivpb -) 500 mg in 100 mls @ 100 mls/hr IVPB Q8H-IV [facility] Last Admin: 11/22/17 09:04 Dose: 100 mls/hr Ertapenem 1 gm/ Sodium (Chloride) 50 mls @ 100 mls/hr IVPB DAILY [facility] PRN Reason: Protocol Last Admin: 11/22/17 10:30 Dose: 100 mls/hr Lactobacillus Acidophilus (Bacid -) 1 tab PO DAILY [facility] Last Admin: 11/22/17 09:03 Dose: 1 tab Morphine Sulfate (Morphine Sulfate) 2 mg IVPUSH Q4H PRN PRN Reason: PAIN LEVEL 6-10 Last Admin: 11/22/17 09:16 Dose: 2 mg Ondansetron HCl (Zofran Injection) 4 mg IVPUSH Q6H PRN PRN Reason: NAUSEA Pantoprazole Sodium (Protonix Iv) 40 mg IVPUSH DAILY [facility] Last Admin: 11/22/17 09:03 Dose: 40 mg Triamcinolone Acetonide (Aristocort 0.1% Cream -) 1 applic TP BID [facility] Last Admin: 11/22/17 09:04 Dose: 1 applic - Objective Vital Signs: Vital Signs Temperature 98.9 F 11/22/17 06:40 Pulse Rate 79 11/22/17 06:40 Respiratory Rate 18 11/22/17 06:40 Blood Pressure 132/71 11/22/17 06:40 O2 Sat by Pulse Oximetry (%) 96 11/21/17 10:00 Constitutional: Yes: Mild Distress Eyes: Yes: WNL HENT: Yes: WNL Neck: Yes: WNL Cardiovascular: Yes: WNL Respiratory: Yes: WNL Gastrointestinal: Yes: WNL ...Rectal Exam: Yes: Hemorrhoids/External, Inflammation, Other (DRAIN LEFT BUTTOCK NONTENDER CLEAN) Genitourinary: Yes: WNL Musculoskeletal: Yes: WNL Extremities: Yes: WNL Edema: No Peripheral Pulses WNL: Yes Integumentary: Yes: WNL Wound/Incision: Yes: Dressing Dry and Intact Neurological: Yes: WNL ...Motor Strength: WNL Psychiatric: Yes: WNL Labs: CBC, BMP 11/20/17 06:00 11/20/17 06:00 INR, PTT INR 1.11 (0.82-1.09) 11/16/17 20:40 Problem List - Problems (1) Abdominal pain Code(s): R10.9 - UNSPECIFIED ABDOMINAL PAIN Qualifiers: Abdominal location: unspecified location Qualified Code(s): R10.9 - Unspecified abdominal pain (2) Intra-abdominal abscess Code(s): K65.1 - PERITONEAL ABSCESS (3) Leukocytosis Code(s): D72.829 - ELEVATED WHITE BLOOD CELL COUNT, UNSPECIFIED (4) Sepsis Code(s): A41.9 - SEPSIS, UNSPECIFIED ORGANISM Qualifiers: Sepsis type: sepsis due to unspecified organism Qualified Code(s): A41.9 - Sepsis, unspecified organism Assessment/Plan IV ABX FOR 7 DAYS ESBL+ ERTAPENEM DAILY FOR 7 DAYS PICC LINE ORDERED OOB TO CHAIR WILL NEED GI EVAL RECTAL PAIN HYDROCORTIZONE ORDERED PER RECTAL
[2017-11-22 12:09] LABS: HEMATOCRIT 32.5 % (32.4-45.2); HEMOGLOBIN 10.6 GM/dL (10.7-15.3); MCH 28.4 pg (25.7-33.7); MCHC 32.7 g/dl (32.0-36.0); MEAN CELL VOLUME 86.8 fl (80-96); MEAN PLT VOLUME 6.9 fl (7.5-11.1); PLATELET COUNT 375 K/MM3 (134-434); RBC 3.74 M/mm3 (3.60-5.2); RDW 14.4 % (11.6-15.6); WHITE BLOOD COUNT 9.2 K/mm3 (4.0-10.0)
[2017-11-22] MEDS: [UNRECOGNIZED DRUG - OTHER] PR SCH (14:19)
[2017-11-22] MEDS: HYDROCORTISONE ACETATE PR SCH (14:19)
--- NOTE | 2017-11-22 19:07 | PN ---
GI Progress Note Subjective: diarrhea restarted associated with rectal pain, still draining serosanguinous fluid in j-p drain - Objective Vital Signs: Vital Signs Temperature 98.7 F 11/22/17 18:00 Pulse Rate 80 11/22/17 18:00 Respiratory Rate 18 11/22/17 18:00 Blood Pressure 111/59 11/22/17 18:00 O2 Sat by Pulse Oximetry (%) 96 11/21/17 10:00 Constitutional: Well Nourished Eyes: Yes: Conjunctiva Clear HENT: Yes: Atraumatic Neck: Yes: Supple Cardiovascular: Yes: Regular Rate and Rhythm Respiratory: Yes: CTA Bilaterally ...Palpate: Yes: Soft. No: Firm/Rigid, Guarding, Hepatomegaly, Mass, Pulsatile Mass, Splenomegaly ...Rectal Exam: Yes: Hemorrhoids/Internal, Sphincter Tone Normal Labs: CBC, BMP 11/22/17 11:40 11/20/17 06:00 INR, PTT INR 1.11 (0.82-1.09) 11/16/17 20:40 Problem List - Problems (1) Pelvic abscess Assessment/Plan: resolving Code(s): [id number] - (2) Internal hemorrhoids Assessment/Plan: hydrocortisone suppository Code(s): K64.8 - OTHER HEMORRHOIDS
[2017-11-23] MEDS: DEXTROSE 5%-0.45% SALINE 1,000 ML IV SCH (05:49)
[2017-11-23] MEDS: AMINO ACIDS/PROTEIN HYDROLYS 30 ML LIQUID.PKT PO SCH ×2 (09:09→17:05)
[2017-11-23] MEDS: PANTOPRAZOLE SODIUM 40 MG VIAL IVPUSH SCH (10:46)
[2017-11-23] MEDS: LACTOBACILLUS ACIDOPHILUS 1 TABLET PO SCH (10:47)
[2017-11-23] MEDS: HEPARIN NA (PORCINE) 5,000 UNITS/ML 1ML VIAL SQ SCH ×2 (10:53→21:20)
[2017-11-23] MEDS: ERTAPENEM SODIUM 1 GM in SODIUM CHLORIDE 50 ML IVPB SCH (10:57)
[2017-11-23] MEDS: HYDROCORTISONE ACETATE PR SCH (10:59)
[2017-11-23] MEDS: [UNRECOGNIZED DRUG - OTHER] PR SCH (10:59)
[2017-11-23] MEDS: TRIAMCINOLONE ACET 0.1% CREAM 15 GM TUBE TP SCH ×2 (10:59→21:19)
--- NOTE | 2017-11-23 11:14 | DS ---
Physical Examination Vital Signs: Vital Signs Temperature 99.0 F 11/23/17 06:00 Pulse Rate 76 11/23/17 06:00 Respiratory Rate 20 11/23/17 06:00 Blood Pressure 120/63 11/23/17 06:00 O2 Sat by Pulse Oximetry (%) 95 11/22/17 21:00 Findings/Remarks: AWAKE ALERT NAD Constitutional: Yes: No Distress Eyes: Yes: WNL HENT: Yes: WNL Neck: Yes: WNL Cardiovascular: Yes: WNL Respiratory: Yes: WNL Gastrointestinal: Yes: WNL Renal/: Yes: WNL Musculoskeletal: Yes: WNL Extremities: Yes: WNL Edema: No Peripheral Pulses WNL: Yes Integumentary: Yes: Other Wound/Incision: Yes: Dressing Dry and Intact, Draining Neurological: Yes: WNL ...Motor Strength: WNL Psychiatric: Yes: WNL Labs: CBC, BMP 11/22/17 11:40 11/20/17 06:00 Discharge Summary Reason For Visit: ABD PAIN, SEPSIS Current Active Problems Abdominal pain (Acute) Electrolyte abnormality (Acute) Internal hemorrhoids (Acute) Intra-abdominal abscess (Acute) Leukocytosis (Acute) Lung mass (Acute) Pelvic abscess (Acute) Sepsis (Acute) Procedures: Principal: I AND D Hospital Course: ADMITTED PELVIC ABSCESS, ESBL + NEEDS 7 DAYS OF IV ERTAPENEM DAILY, PICC LINE PLACED SNF Condition: Stable - Instructions Diet, Activity, Other Instructions: DIABET LOW SODIUM WOUND CARE DAILY SURGERY FOLLOW UP Referrals: Godfrey Dumont MD [Primary Care Provider] - Disposition: LONG TERM FACILITY - Home Medications Comprehensive Discharge Medication List: Ambulatory Orders Diclofenac Sodium ER 100 mg PO AC 11/17/17 Metformin HCl 500 mg PO DAILY 11/17/17 Oxycodone HCl/Acetaminophen [Oxycodone-Acetaminophen 5-325] 1 each PO Q6H PRN Rosuvastatin [Crestor -] 5 mg PO DAILY 11/17/17 Acetaminophen [Tylenol .Regular Strength -] 650 mg PO Q6H PRN tablet 11/23/17 Amino Acids/Protein Hydrolys [Prosource No Carb Liquid Pkt] 30 ml PO BID@0800, 1730 packet 11/23/17 Clotrimazole [Gyne-Lotrimin -] 1 applic VG HS tube 11/23/17 Ertapenem Sodium [Invanz -] 1 gm IVPB DAILY 7 Days vial 11/23/17 Heparin - 5,000 unit SQ BID vial 11/23/17 Hydrocortisone Acetate [Cortifoam -] 1 applic [place] DAILY foam.appl 11/23/17 Lactobacillus Acidophilus [Bacid -] 1 tab PO DAILY tab 11/23/17 Ondansetron [Ondansetron Odt] 8 mg PO QID PRN 30 Days #60 tab.rapdis MDD 4 11/23 Pantoprazole Sodium [Protonix] 40 mg PO DAILY #30 tablet. 11/23/17 Picc Line Flush [Picc Line Flush -] 8 ml IVPUSH PRN PRN ml 11/23/17 Triamcinolone 0.1% Cream [Aristocort 0.1% Cream -] 1 applic TP BID applic 11/23 hydrOXYzine HCL [Atarax -] 10 mg PO Q6H PRN tablet 11/23/17
--- NOTE | 2017-11-23 14:09 | PN ---
Progress Note, Physician History of Present Illness: Awake, alert C/O lower abdominal pain bilaterally No N/V No diarrhea No c/o fever/ chills - Current Medication List Current Medications: Active Medications Acetaminophen (Tylenol -) 650 mg PO Q6H PRN PRN Reason: PAIN OR FEVER Amino Acids (Prosource No Carb Liquid Pkt) 30 ml PO BID@0800,1730 [facility] Last Admin: 11/23/17 09:09 Dose: 30 ml Heparin Sodium (Porcine) (Heparin -) 5,000 unit SQ BID [facility] Last Admin: 11/23/17 10:53 Dose: 5,000 unit Hydrocortisone Acetate (Cortifoam 10% -) 1 applic [place] DAILY [facility] Last Admin: 11/23/17 10:59 Dose: 1 applic Hydroxyzine HCl (Atarax -) 10 mg PO Q6H PRN PRN Reason: pruritis IV Flush (Picc Line Flush) 8 ml IVPUSH PRN PRN PRN Reason: Protocol Dextrose/Sodium Chloride (D5-1/2ns -) 1,000 mls @ 42 mls/hr IV ASDIR [facility] Last Admin: 11/23/17 05:49 Dose: 42 mls/hr Metronidazole (Flagyl 500mg Premixed Ivpb -) 500 mg in 100 mls @ 100 mls/hr IVPB Q8H-IV [facility] Last Admin: 11/23/17 10:46 Dose: 100 mls/hr Ertapenem 1 gm/ Sodium (Chloride) 50 mls @ 100 mls/hr IVPB DAILY [facility] PRN Reason: Protocol Last Admin: 11/23/17 10:57 Dose: 100 mls/hr Lactobacillus Acidophilus (Bacid -) 1 tab PO DAILY [facility] Last Admin: 11/23/17 10:47 Dose: 1 tab Ondansetron HCl (Zofran Injection) 4 mg IVPUSH Q6H PRN PRN Reason: NAUSEA Pantoprazole Sodium (Protonix Iv) 40 mg IVPUSH DAILY [facility] Last Admin: 11/23/17 10:46 Dose: 40 mg Triamcinolone Acetonide (Aristocort 0.1% Cream -) 1 applic TP BID [facility] Last Admin: 11/23/17 10:59 Dose: 1 applic - Objective Vital Signs: Vital Signs Temperature 98.8 F 11/23/17 09:00 Pulse Rate 69 11/23/17 09:00 Respiratory Rate 20 11/23/17 09:00 Blood Pressure 114/82 11/23/17 09:00 O2 Sat by Pulse Oximetry (%) 97 11/23/17 09:00 Constitutional: Yes: No Distress Cardiovascular: Yes: Regular Rate and Rhythm, S1, S2 Respiratory: Yes: CTA Bilaterally Gastrointestinal: Yes: Normal Bowel Sounds, Soft, Tenderness, Other (lower abdo tenderness bilaterally No rebound/ rigidity) Labs: CBC, BMP 11/22/17 11:40 11/20/17 06:00 INR, PTT INR 1.11 (0.82-1.09) 11/16/17 20:40 Assessment/Plan Intra-abdominal abscess +ESBL Leukocytosis- resolved To complete 7d course ertapenem as outpatient
[2017-11-24] MEDS: DEXTROSE 5%-0.45% SALINE 1,000 ML IV SCH (05:50)
[2017-11-24] MEDS: [UNRECOGNIZED DRUG - OTHER] PR SCH (09:46)
[2017-11-24] MEDS: LACTOBACILLUS ACIDOPHILUS 1 TABLET PO SCH (09:46)
[2017-11-24] MEDS: HYDROCORTISONE ACETATE PR SCH (09:46)
[2017-11-24] MEDS: TRIAMCINOLONE ACET 0.1% CREAM 15 GM TUBE TP SCH ×2 (09:46→22:33)
[2017-11-24] MEDS: AMINO ACIDS/PROTEIN HYDROLYS 30 ML LIQUID.PKT PO SCH ×2 (09:46→17:52)
[2017-11-24] MEDS: PANTOPRAZOLE SODIUM 40 MG VIAL IVPUSH SCH (09:47)
[2017-11-24] MEDS: ERTAPENEM SODIUM 1 GM in SODIUM CHLORIDE 50 ML IVPB SCH (09:47)
--- NOTE | 2017-11-24 10:47 | PN ---
Progress Note, Physician - Current Medication List Current Medications: Active Medications Acetaminophen (Tylenol -) 650 mg PO Q6H PRN PRN Reason: PAIN OR FEVER Amino Acids (Prosource No Carb Liquid Pkt) 30 ml PO BID@0800,1730 [facility] Last Admin: 11/24/17 09:46 Dose: 30 ml Hydrocortisone Acetate (Cortifoam 10% -) 1 applic [place] DAILY [facility] Last Admin: 11/24/17 09:46 Dose: 1 applic Hydroxyzine HCl (Atarax -) 10 mg PO Q6H PRN PRN Reason: pruritis IV Flush (Picc Line Flush) 8 ml IVPUSH PRN PRN PRN Reason: Protocol Dextrose/Sodium Chloride (D5-1/2ns -) 1,000 mls @ 42 mls/hr IV ASDIR [facility] Last Admin: 11/24/17 05:50 Dose: 42 mls/hr Metronidazole (Flagyl 500mg Premixed Ivpb -) 500 mg in 100 mls @ 100 mls/hr IVPB Q8H-IV [facility] Last Admin: 11/24/17 09:46 Dose: 100 mls/hr Ertapenem 1 gm/ Sodium (Chloride) 50 mls @ 100 mls/hr IVPB DAILY [facility] PRN Reason: Protocol Last Admin: 11/24/17 09:47 Dose: 100 mls/hr Lactobacillus Acidophilus (Bacid -) 1 tab PO DAILY [facility] Last Admin: 11/24/17 09:46 Dose: 1 tab Ondansetron HCl (Zofran Injection) 4 mg IVPUSH Q6H PRN PRN Reason: NAUSEA Pantoprazole Sodium (Protonix Iv) 40 mg IVPUSH DAILY [facility] Last Admin: 11/24/17 09:47 Dose: 40 mg Triamcinolone Acetonide (Aristocort 0.1% Cream -) 1 applic TP BID [facility] Last Admin: 11/24/17 09:46 Dose: 1 applic - Objective Vital Signs: Vital Signs Temperature 97.7 F 11/24/17 10:00 Pulse Rate 76 11/24/17 10:00 Respiratory Rate 18 11/24/17 10:00 Blood Pressure 129/71 11/24/17 10:00 O2 Sat by Pulse Oximetry (%) 94 L 11/23/17 21:00 Labs: CBC, BMP 11/22/17 11:40 11/20/17 06:00 INR, PTT INR 1.11 (0.82-1.09) 11/16/17 20:40 Assessment/Plan - Problems (1) Intra-abdominal abscess Assessment/Plan: iv abx-etrapanem to complete 7 days s/p drain leukocystosis trending down Microbiology 11/17/17 17:00 Abscess Gram Stain - Final 11/17/17 17:00 Abscess Body Fluid Culture - Preliminary Non Lactose Fermenting Gnb Non Lactose Fermenting Gnb#2 Microbiology 11/17/17 17:00 Abscess Gram Stain - Final 11/17/17 17:00 Abscess Anaerobic Culture - Final NO ANAEROBES WERE ISOLATED 11/17/17 17:00 Abscess Body Fluid Culture - Preliminary Escherichia Coli 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
[2017-11-25] MEDS: DEXTROSE 5%-0.45% SALINE 1,000 ML IV SCH (05:47)
[2017-11-25] MEDS: AMINO ACIDS/PROTEIN HYDROLYS 30 ML LIQUID.PKT PO SCH ×2 (09:57→17:36)
[2017-11-25] MEDS: TRIAMCINOLONE ACET 0.1% CREAM 15 GM TUBE TP SCH ×2 (09:57→22:11)
[2017-11-25] MEDS: ERTAPENEM SODIUM 1 GM in SODIUM CHLORIDE 50 ML IVPB SCH (09:58)
[2017-11-25] MEDS: LACTOBACILLUS ACIDOPHILUS 1 TABLET PO SCH (09:58)
[2017-11-25] MEDS: PANTOPRAZOLE SODIUM 40 MG VIAL IVPUSH SCH (09:59)
[2017-11-25] MEDS: [UNRECOGNIZED DRUG - OTHER] PR SCH (09:59)
[2017-11-25] MEDS: HYDROCORTISONE ACETATE PR SCH (09:59)
--- NOTE | 2017-11-25 10:04 | PN ---
Progress Note, Physician - Current Medication List Current Medications: Active Medications Acetaminophen (Tylenol -) 650 mg PO Q6H PRN PRN Reason: PAIN OR FEVER Amino Acids (Prosource No Carb Liquid Pkt) 30 ml PO BID@0800,1730 [facility] Last Admin: 11/25/17 09:57 Dose: 30 ml Hydrocortisone Acetate (Cortifoam 10% -) 1 applic [place] DAILY [facility] Last Admin: 11/25/17 09:59 Dose: 1 applic Hydroxyzine HCl (Atarax -) 10 mg PO Q6H PRN PRN Reason: pruritis IV Flush (Picc Line Flush) 8 ml IVPUSH PRN PRN PRN Reason: Protocol Dextrose/Sodium Chloride (D5-1/2ns -) 1,000 mls @ 42 mls/hr IV ASDIR [facility] Last Admin: 11/25/17 05:47 Dose: 42 mls/hr Metronidazole (Flagyl 500mg Premixed Ivpb -) 500 mg in 100 mls @ 100 mls/hr IVPB Q8H-IV [facility] Last Admin: 11/25/17 09:57 Dose: 100 mls/hr Ertapenem 1 gm/ Sodium (Chloride) 50 mls @ 100 mls/hr IVPB DAILY [facility] PRN Reason: Protocol Last Admin: 11/25/17 09:58 Dose: 100 mls/hr Lactobacillus Acidophilus (Bacid -) 1 tab PO DAILY [facility] Last Admin: 11/25/17 09:58 Dose: 1 tab Ondansetron HCl (Zofran Injection) 4 mg IVPUSH Q6H PRN PRN Reason: NAUSEA Pantoprazole Sodium (Protonix Iv) 40 mg IVPUSH DAILY [facility] Last Admin: 11/25/17 09:59 Dose: 40 mg Triamcinolone Acetonide (Aristocort 0.1% Cream -) 1 applic TP BID [facility] Last Admin: 11/25/17 09:57 Dose: 1 applic - Objective Vital Signs: Vital Signs Temperature 98.1 F 11/25/17 09:54 Pulse Rate 83 11/25/17 09:54 Respiratory Rate 18 11/25/17 09:54 Blood Pressure 127/67 11/25/17 09:54 O2 Sat by Pulse Oximetry (%) 96 11/24/17 21:00 Cardiovascular: Yes: Regular Rate and Rhythm Respiratory: Yes: Regular, CTA Bilaterally Gastrointestinal: Yes: Normal Bowel Sounds, Soft ...Rectal Exam: Yes: Other (drain in place) Labs: CBC, BMP 11/22/17 11:40 11/20/17 06:00 INR, PTT INR 1.11 (0.82-1.09) 11/16/17 20:40 Assessment/Plan - Problems (1) Intra-abdominal abscess Assessment/Plan: iv abx-etrapanem to complete 7 days s/p drain leukocystosis trending down Microbiology 11/17/17 17:00 Abscess Gram Stain - Final 11/17/17 17:00 Abscess Body Fluid Culture - Preliminary Non Lactose Fermenting Gnb Non Lactose Fermenting Gnb#2 Microbiology 11/17/17 17:00 Abscess Gram Stain - Final 11/17/17 17:00 Abscess Anaerobic Culture - Final NO ANAEROBES WERE ISOLATED 11/17/17 17:00 Abscess Body Fluid Culture - Preliminary Escherichia Coli Esbl Event Set Up Specialist contact isolation repeat CT scan --smaller Code(s): K65.1 - PERITONEAL ABSCESS (2) Leukocytosis Assessment/Plan: leukocytosis trending down- now normal no fever EBS-ecoli isolation ID follow up noted Code(s): D72.829 - ELEVATED WHITE BLOOD CELL COUNT, UNSPECIFIED (3) Abdominal pain Assessment/Plan: imoproved Code(s): R10.9 - UNSPECIFIED ABDOMINAL PAIN Qualifiers: Abdominal location: unspecified location Qualified Code(s): R10.9 - Unspecified abdominal pain (4) Electrolyte abnormality Assessment/Plan: potassium and magnesium now normal Code(s): E87.8 - OTH DISORDERS OF ELECTROLYTE AND FLUID BALANCE, NEC
[2017-11-26 08:12] LABS: BASO % 0.8 % (0-2.0); EOS % 8.6 % (0-4.5); HEMATOCRIT 34.7 % (32.4-45.2); HEMOGLOBIN 11.6 GM/dL (10.7-15.3); LYMPH % 23.1 % (8-40); MCH 29.2 pg (25.7-33.7); MCHC 33.3 g/dl (32.0-36.0); MEAN CELL VOLUME 87.5 fl (80-96); MEAN PLT VOLUME 6.7 fl (7.5-11.1); MONO % 8.3 % (3.8-10.2); NEUT % 59.2 % (42.8-82.8); PLATELET COUNT 473 K/MM3 (134-434); RBC 3.97 M/mm3 (3.60-5.2); WHITE BLOOD COUNT 7.5 K/mm3 (4.0-10.0)
[2017-11-26 08:34] LABS: CHLORIDE 106 mmol/L (98-107); POTASSIUM 3.7 mmol/L (3.5-5.1); SODIUM 143 mmol/L (136-145)
[2017-11-26 08:45] LABS: ALBUMIN 2.8 g/dl (3.4-5.0); ALK PHOS 69 U/L (45-117); ANION GAP 8 (8-16); BILIRUBIN,TOTAL 0.3 mg/dL (0.2-1.0); BLOOD UREA NITROGEN 11 mg/dL (7-18); CALCIUM 8.7 mg/dL (8.5-10.1); CO2 29 mmol/L (21-32); CREATININE 0.4 mg/dL (0.55-1.02); GLUCOSE,RANDOM 113 mg/dL (74-106); SGOT/AST 15 U/L (15-37); SGPT/ALT 11 U/L (12-78); TOT PROT 6.1 g/dl (6.4-8.2)
[2017-11-26] MEDS: AMINO ACIDS/PROTEIN HYDROLYS 30 ML LIQUID.PKT PO SCH ×2 (09:09→17:10)
[2017-11-26] MEDS: DEXTROSE 5%-0.45% SALINE 1,000 ML IV SCH (09:09)
[2017-11-26] MEDS: LACTOBACILLUS ACIDOPHILUS 1 TABLET PO SCH (10:35)
[2017-11-26] MEDS: TRIAMCINOLONE ACET 0.1% CREAM 15 GM TUBE TP SCH ×2 (10:36→22:15)
[2017-11-26] MEDS: PANTOPRAZOLE SODIUM 40 MG VIAL IVPUSH SCH ×2 (10:37→10:46)
[2017-11-26] MEDS: HYDROCORTISONE ACETATE PR SCH (10:37)
[2017-11-26] MEDS: [UNRECOGNIZED DRUG - OTHER] PR SCH (10:37)
--- NOTE | 2017-11-26 13:48 | PN ---
Progress Note, Physician - Current Medication List Current Medications: Active Medications Acetaminophen (Tylenol -) 650 mg PO Q6H PRN PRN Reason: PAIN OR FEVER Amino Acids (Prosource No Carb Liquid Pkt) 30 ml PO BID@0800,1730 [facility] Last Admin: 11/26/17 09:09 Dose: 30 ml Hydrocortisone Acetate (Cortifoam 10% -) 1 applic [place] DAILY [facility] Last Admin: 11/26/17 10:37 Dose: 1 applic Hydroxyzine HCl (Atarax -) 10 mg PO Q6H PRN PRN Reason: pruritis IV Flush (Picc Line Flush) 8 ml IVPUSH PRN PRN PRN Reason: Protocol Dextrose/Sodium Chloride (D5-1/2ns -) 1,000 mls @ 42 mls/hr IV ASDIR [facility] Last Admin: 11/26/17 09:09 Dose: Not Given Metronidazole (Flagyl 500mg Premixed Ivpb -) 500 mg in 100 mls @ 100 mls/hr IVPB Q8H-IV [facility] Last Admin: 11/26/17 10:35 Dose: 100 mls/hr Ertapenem 1 gm/ Sodium (Chloride) 50 mls @ 100 mls/hr IVPB DAILY [facility] PRN Reason: Protocol Last Admin: 11/25/17 09:58 Dose: 100 mls/hr Lactobacillus Acidophilus (Bacid -) 1 tab PO DAILY [facility] Last Admin: 11/26/17 10:35 Dose: 1 tab Ondansetron HCl (Zofran Injection) 4 mg IVPUSH Q6H PRN PRN Reason: NAUSEA Pantoprazole Sodium (Protonix Iv) 40 mg IVPUSH DAILY [facility] Last Admin: 11/26/17 10:46 Dose: Not Given Triamcinolone Acetonide (Aristocort 0.1% Cream -) 1 applic TP BID [facility] Last Admin: 11/26/17 10:36 Dose: 1 applic - Objective Vital Signs: Vital Signs Temperature 98.6 F 11/26/17 10:00 Pulse Rate 96 H 11/26/17 10:00 Respiratory Rate 20 11/26/17 10:00 Blood Pressure 109/60 11/26/17 10:00 O2 Sat by Pulse Oximetry (%) 96 11/26/17 09:00 Constitutional: Yes: Calm Cardiovascular: Yes: Regular Rate and Rhythm, S1, S2 Respiratory: Yes: CTA Bilaterally Gastrointestinal: Yes: Normal Bowel Sounds, Soft, Other (drain with minimal drainage) Labs: CBC, BMP 11/26/17 06:30 11/26/17 06:30 INR, PTT INR 1.11 (0.82-1.09) 11/16/17 20:40 Problem List - Problems (1) Intra-abdominal abscess Assessment/Plan: iv abx- s/p drain leukocystosis trending down Microbiology 11/17/17 17:00 Abscess Gram Stain - Final 11/17/17 17:00 Abscess Body Fluid Culture - Preliminary Non Lactose Fermenting Gnb Non Lactose Fermenting Gnb#2 Microbiology 11/17/17 17:00 Abscess Gram Stain - Final 11/17/17 17:00 Abscess Anaerobic Culture - Final NO ANAEROBES WERE ISOLATED 11/17/17 17:00 Abscess Body Fluid Culture - Preliminary Escherichia Coli Esbl Showroom Consultant to get ID to come back see the patient and adjust abx if needed contact isolation repeat CT scan done and show that the pelvic fluid collection has decreased mininmal drainage in the drain will get Surgical follow to see patient regarding drain paged ID waiting to hear back from them regarding duration of iv abx today is day 6 of ertrapenem Code(s): K65.1 - PERITONEAL ABSCESS (2) Leukocytosis Assessment/Plan: leukocytosis trending down- now normal no fever EBS-ecoli isolation ID follow up Code(s): D72.829 - ELEVATED WHITE BLOOD CELL COUNT, UNSPECIFIED (3) Abdominal pain Assessment/Plan: iv protonix now on regular diet Code(s): R10.9 - UNSPECIFIED ABDOMINAL PAIN Qualifiers: Abdominal location: unspecified location Qualified Code(s): R10.9 - Unspecified abdominal pain (4) Electrolyte abnormality Assessment/Plan: potassium and magnesium now normal Code(s): E87.8 - OTH DISORDERS OF ELECTROLYTE AND FLUID BALANCE, NEC Assessment/Plan ID follow up regarding duration of iv abx
[2017-11-26] MEDS: ERTAPENEM SODIUM 1 GM in SODIUM CHLORIDE 50 ML IVPB SCH (15:55)
[2017-11-26] MEDS: PANTOPRAZOLE 40 MG TABLET (FP) PO SCH (17:10)
[2017-11-27] MEDS: AMINO ACIDS/PROTEIN HYDROLYS 30 ML LIQUID.PKT PO SCH ×2 (08:12→16:58)
[2017-11-27] MEDS ORDERED: PT OWN MED DRAWER 7, Y5N ONE (09:26)
[2017-11-27] MEDS: LACTOBACILLUS ACIDOPHILUS 1 TABLET PO SCH (09:28)
[2017-11-27] MEDS: PANTOPRAZOLE 40 MG TABLET (FP) PO SCH (09:28)
[2017-11-27] MEDS: TRIAMCINOLONE ACET 0.1% CREAM 15 GM TUBE TP SCH (09:28)
[2017-11-27] MEDS: HYDROCORTISONE ACETATE PR SCH (09:28)
[2017-11-27] MEDS: [UNRECOGNIZED DRUG - OTHER] PR SCH (09:28)
[2017-11-27] MEDS: ERTAPENEM SODIUM 1 GM in SODIUM CHLORIDE 50 ML IVPB SCH (10:28)
--- NOTE | 2017-11-27 13:11 | DS ---
Physical Examination Vital Signs: Vital Signs Temperature 98.2 F 11/27/17 09:22 Pulse Rate 88 11/27/17 09:22 Respiratory Rate 20 11/27/17 09:22 Blood Pressure 115/59 11/27/17 09:22 O2 Sat by Pulse Oximetry (%) 97 11/27/17 09:00 Awake alert oriented no distress Constitutional: Yes: Calm Neck: Yes: Trachea Midline Cardiovascular: Yes: Regular Rate and Rhythm, S1, S2 Respiratory: Yes: CTA Bilaterally Gastrointestinal: Yes: Normal Bowel Sounds, Soft, Other (NIKOLAS drain minimal drainage) Edema: No Neurological: Yes: Alert, Oriented Labs: CBC, BMP 11/26/17 06:30 11/26/17 06:30 Discharge Summary Reason For Visit: ABD PAIN, SEPSIS Current Active Problems Abdominal pain (Acute) Electrolyte abnormality (Acute) Internal hemorrhoids (Acute) Intra-abdominal abscess (Acute) Leukocytosis (Acute) Lung mass (Acute) Pelvic abscess (Acute) Sepsis (Acute) Hospital Course: patient admitted for abdominal pain - abdominal abscess s/p NIKOLAS drain via IR, culture ESBL- iv ertrapenem with iv flagyl for 7 days completed course , picc line placed for iv abx course completed removed NIKOLAS drain minimal drainage epeat ct scan done fluid collection decreased in size to go home Condition: Stable - Instructions Diet, Activity, Other Instructions: DIABET LOW SODIUM WOUND CARE DAILY SURGERY FOLLOW UP Referrals: Godfrey Dumont MD [Primary Care Provider] - Disposition: HOME - Home Medications Comprehensive Discharge Medication List: Ambulatory Orders Diclofenac Sodium ER 100 mg PO AC 11/17/17 Metformin HCl 500 mg PO DAILY 11/17/17 Oxycodone HCl/Acetaminophen [Oxycodone-Acetaminophen 5-325] 1 each PO Q6H PRN Rosuvastatin [Crestor -] 5 mg PO DAILY 11/17/17 Acetaminophen [Tylenol .Regular Strength -] 650 mg PO Q6H PRN tablet 11/23/17 Amino Acids/Protein Hydrolys [Prosource No Carb Liquid Pkt] 30 ml PO BID@0800, 1730 packet 11/23/17 Clotrimazole [Gyne-Lotrimin -] 1 applic VG HS tube 11/23/17 Ertapenem Sodium [Invanz -] 1 gm IVPB DAILY 7 Days vial 11/23/17 Heparin - 5,000 unit SQ BID vial 11/23/17 Hydrocortisone Acetate [Cortifoam -] 1 applic [place] DAILY foam.appl 11/23/17 Lactobacillus Acidophilus [Bacid -] 1 tab PO DAILY tab 11/23/17 Ondansetron [Ondansetron Odt] 8 mg PO QID PRN 30 Days #60 tab.rapdis MDD 4 11/23 Pantoprazole Sodium [Protonix] 40 mg PO DAILY #30 tablet. 11/23/17 Picc Line Flush [Picc Line Flush -] 8 ml IVPUSH PRN PRN ml 11/23/17 Triamcinolone 0.1% Cream [Aristocort 0.1% Cream -] 1 applic TP BID applic 11/23 hydrOXYzine HCL [Atarax -] 10 mg PO Q6H PRN tablet 11/23/17
--- NOTE | 2017-11-27 13:14 | PN ---
Progress Note (short form) - Note Progress Note: today last dose of iv abx to go to IR to get NIKOLAS drain removed then will go home Problem List - Problems (1) Intra-abdominal abscess Code(s): K65.1 - PERITONEAL ABSCESS (2) Leukocytosis Code(s): D72.829 - ELEVATED WHITE BLOOD CELL COUNT, UNSPECIFIED (3) Abdominal pain Code(s): R10.9 - UNSPECIFIED ABDOMINAL PAIN Qualifiers: Abdominal location: unspecified location Qualified Code(s): R10.9 - Unspecified abdominal pain (4) Electrolyte abnormality Code(s): E87.8 - OTH DISORDERS OF ELECTROLYTE AND FLUID BALANCE, NEC
[2017-11-27 16:18] VITALS: BP 120/58; PULSE 80; TEMP 97.8
== END 2017-11-27 18:48 | disposition home or self-care (01) | DRG 871 ==
LOC: JER 20:03 → JERBED 11-17 05:17 → UNDOADMIN 11-17 05:51 → JERBED 11-17 05:51 → J7W 11-17 07:15 → J4S 11-20 17:45 → J8W 11-25 15:42
PROVIDERS: ADMIT Internal Medicine; ATTEND Family Medicine
PROC: 0W9J30Z Drainage of Pelvic Cavity with Drainage Device, Percutaneous Approach (ICD-10-PCS; principal; 2017-11-18)
PROC: 02HV33Z Insertion of Infusion Device into Superior Vena Cava, Percutaneous Approach (ICD-10-PCS; 2017-11-23)
PROC: 0WPJX0Z Removal of Drainage Device from Pelvic Cavity, External Approach (ICD-10-PCS; 2017-11-27)
DX: A41.9 Sepsis, unspecified organism (principal); K65.1 Peritoneal abscess; E78.5 Hyperlipidemia, unspecified; K57.90 Diverticulosis of intestine, part unspecified, without perforation or abscess without bleeding; R73.03 Prediabetes; R10.9 Unspecified abdominal pain; R63.4 Abnormal weight loss; Z68.27 Body mass index [BMI] 27.0-27.9, adult; R91.8 Other nonspecific abnormal finding of lung field; R00.0 Tachycardia, unspecified; D72.829 Elevated white blood cell count, unspecified; N73.9 Female pelvic inflammatory disease, unspecified; E87.8 Other disorders of electrolyte and fluid balance, not elsewhere classified; K64.8 Other hemorrhoids; B96.20 Unspecified Escherichia coli [E. coli] as the cause of diseases classified elsewhere
CPT/HCPCS: 36415; 36569; 49407; 49424; 71045-TC-FY; 74177-TC; 76080-TC-FY; 76098-TC-FY; 77001-TC-FY; 80048; 80053; 81003; 81015; 82150; 82378; 82803; 83036; 83605; 83690; 83735; 84100; 84484; 85025; 85027; 85610; 85730; 86140; 86304; 86480; 87040; 87070; 87075; 87086; 87186; 87205; 87324; 87449; 87899; 90670; 90688; 93005; 93010; 97116-GP; 97161-GP; 99283-25; C1729; C1751; C1769; J0131; J1644; J7030

== ENCOUNTER 2017-12-11 13:48 | Inpatient (IN) | payer OTHER ==
--- NOTE | 2017-12-11 14:09 | PDOC ---
Rapid Medical Evaluation Time Seen by Provider: 12/11/17 14:03 Medical Evaluation: Allergies Allergy/AdvReac Type Severity Reaction Status Date / Time No Known Allergies Allergy Verified 12/11/17 14:01 12/11/17 14:03 Pt. presents with back pain, abdominal discomfort and urinary problems, frequency, dysuria. Was recently staying in the hospital with diverticulitis and abscess drainage. Discharged on 11/27/17. Exam findings: supra pubic tenderness, ambulatory, no respiratory distress. R CVA tenderness Ordered: Labs and urine Pt. to proceed to ED for further evaluation.
[2017-12-11 14:33] LABS: BASO % 0.7 % (0-2.0); EOS % 5.9 % (0-4.5); HEMOGLOBIN 12.6 GM/dL (10.7-15.3); LYMPH % 29.4 % (8-40); MCH 29.2 pg (25.7-33.7); MCHC 33.1 g/dl (32.0-36.0); MEAN PLT VOLUME 7.6 fl (7.5-11.1); MONO % 5.1 % (3.8-10.2); NEUT % 58.9 % (42.8-82.8); PLATELET COUNT 373 K/MM3 (134-434); RBC 4.31 M/mm3 (3.60-5.2); RDW 15.5 % (11.6-15.6); WHITE BLOOD COUNT 8.7 K/mm3 (4.0-10.0)
[2017-12-11 15:36] LABS: URINE APPEARANCE SLCLOUDY; URINE BILIRUBIN NEGATIVE (<2.0 mg/dL); URINE COLOR LTYELLOW; URINE GLUCOSE (UA) NEGATIVE (NEGATIVE); URINE KETONE NEGATIVE (NEGATIVE); URINE LEUK ESTERASE 3+ (NEGATIVE); URINE NITRITE POSITIVE (NEGATIVE); URINE PROTEIN NEGATIVE (NEGATIVE); URINE UROBILINOGEN NEGATIVE mg/dL (0.2-1.0)
[2017-12-11 15:37] LABS: ALBUMIN 3.4 g/dl (3.4-5.0); ALK PHOS 85 U/L (45-117); ANION GAP 8 (8-16); BILIRUBIN,TOTAL 0.3 mg/dL (0.2-1.0); BLOOD UREA NITROGEN 16 mg/dL (7-18); CALCIUM 8.8 mg/dL (8.5-10.1); CHLORIDE 105 mmol/L (98-107); CO2 29 mmol/L (21-32); CREATININE 0.7 mg/dL (0.55-1.02); GLUCOSE,RANDOM 199 mg/dL (74-106); POTASSIUM 4.2 mmol/L (3.5-5.1); SGOT/AST 12 U/L (15-37); SGPT/ALT 15 U/L (12-78); SODIUM 142 mmol/L (136-145); TOT PROT 7.2 g/dl (6.4-8.2)
[2017-12-11 15:38] LABS: EPI CELLS RARE /HPF (FEW); URINE BACTERIA MANY /hpf (NONE SEEN); URINE MUCUS RARE
[2017-12-11 15:44] LABS: INR 1.02 (0.82-1.09); PROTHROMBIN TIME (PATIENT) 11.5 SEC (9.7-13.0)
--- NOTE | 2017-12-11 16:54 | PDOC ---
History of Present Illness - General History Source: Patient Exam Limitations: No Limitations - History of Present Illness Initial Comments: The patient is a 77 year old female with a significant past medical history of diabetes, diverticulitis with abscess and drainage, UTIS, chronic lower back pain, and hyperlipidemia who presents to the emergency department for evaluation of lower abdominal pain. The patient reports moderate lower abdominal pain for the passed 3 days. The patient reports an associated symptom of dysuria. The patient reports seeing her PCP (Dr. Dumont) and was advised to visit the ED for further evaluation. Of note, the patient was recently seen for peritoneal abscess on 11/17. The patient denies chest pain, shortness of breath, headache, and dizziness. Denies fevers, chills, nausea, vomiting, diarrhea, and constipation. Denies urinary frequency, urgency, and hematuria. Allergies: NKA Past surgical history: Hysterectomy Social history: Former smoker 3 years ago. No reported alcohol or drug use. PCP: Dr. Dumont ([phone]) Daughter's Cell Phone: [employer] - [phone] <Crystal Crump - Last Filed: 12/11/17 21:11> <Sonia Fernandez - Last Filed: 12/11/17 21:17> - General Chief Complaint: Pain Stated Complaint: ABD PAIN Time Seen by Provider: 12/11/17 14:03 Past History <Crystal Crump - Last Filed: 12/11/17 21:11> - Past Medical History COPD: No Diabetes: Yes GI Disorders: Yes (DIVERTICULITIS WITH ABSCESS AND DRAINAGE) Hypercholesterolemia: Yes - Suicide/Smoking/Psychosocial Hx Smoking History: Former smoker Have you smoked in the past 12 months: No If you are a former smoker, when did you quit?: 3 yrs ago Information on smoking cessation initiated: No Hx Alcohol Use: No Drug/Substance Use Hx: No Substance Use Type: None <Sonia Fernandez - Last Filed: 12/11/17 21:17> - Past Medical History Allergies/Adverse Reactions: Allergies Allergy/AdvReac Type Severity Reaction Status Date / Time No Known Allergies Allergy Verified 12/11/17 14:01 Home Medications: Ambulatory Orders Rosuvastatin [Crestor -] 5 mg PO DAILY 11/17/17 Acetaminophen [Tylenol .Regular Strength -] 650 mg PO Q6H PRN tablet 11/23/17 Lactobacillus Acidophilus [Bacid -] 1 tab PO DAILY tab 11/23/17 Pantoprazole Sodium [Protonix] 40 mg PO DAILY #30 tablet. 11/23/17 Metformin HCl [Glucophage] 500 mg PO ACBK #20 tablet MDD 1 11/27/17 Pantoprazole Sodium [Protonix -] 40 mg PO DAILY tablet.ec 11/27/17 Review of Systems - Review of Systems Able to Perform ROS?: Yes Comments:: CONSTITUTIONAL: Absent: fever, chills, diaphoresis, generalized weakness, malaise, loss of appetite HEENT: Absent: rhinorrhea, nasal congestion, throat pain, throat swelling, difficulty swallowing, mouth swelling, ear pain, eye pain, visual Changes CARDIOVASCULAR: Absent: chest pain, syncope, palpitations, irregular heart rate, lightheadedness , peripheral edema RESPIRATORY: Absent: cough, shortness of breath, dyspnea with exertion, orthopnea, wheezing, stridor, hemoptysis GASTROINTESTINAL: (+)Lower abdominal pain. Absent: abdominal distension, nausea, vomiting, diarrhea, constipation, melena, hematochezia GENITOURINARY: (+)Dysuria. Absent: Frequency, urgency, hesitancy, hematuria, flank pain, genital pain MUSCULOSKELETAL: Absent: myalgia, arthralgia, joint swelling SKIN: Absent: rash, itching, pallor HEMATOLOGIC/IMMUNOLOGIC: Absent: easy bleeding, easy bruising, lymphadenopathy, frequent infections ENDOCRINE: Absent: unexplained weight gain, unexplained weight loss, heat intolerance, cold intolerance NEUROLOGIC: Absent: headache, focal weakness or paresthesias, dizziness, unsteady gait, seizure, mental status changes, bladder or bowel incontinence PSYCHIATRIC: Absent: anxiety, depression, suicidal or homicidal ideation, hallucinations. <Crystal Crump - Last Filed: 12/11/17 21:11> *Physical Exam - Vital Signs Last Vital Signs Temp Pulse Resp BP Pulse Ox 98.0 F 82 18 136/73 100 12/11/17 14:01 12/11/17 14:01 12/11/17 14:01 12/11/17 14:01 12/11/17 14:01 - Physical Exam Comments: GENERAL: Well developed, well nourished. Awake and alert. No acute distress. HEENT: Normocephalic, atraumatic. PERRLA, EOMI. No conjunctival pallor. Sclera are non- icteric. Moist mucous membranes. Oropharynx is clear. NECK: Supple. Full ROM. No JVD. Carotid pulses 2+ and symmetric, without bruits. No thyromegaly. No lymphadenopathy. CARDIOVASCULAR: Regular rate and rhythm. No murmurs, rubs, or gallops. Distal pulses are 2+ and symmetric. PULMONARY: No evidence of respiratory distress. Lungs clear to auscultation bilaterally. No wheezing, rales or rhonchi. ABDOMINAL: (+)Suprapubic tenderness. Soft. Non-distended. No rebound or guarding. No organomegaly. Normoactive bowel sounds. MUSCULOSKELETAL Normal range of motion at all joints. No bony deformities or tenderness. No CVA tenderness. EXTREMITIES: No cyanosis. No clubbing. No edema. No calf tenderness. SKIN: Warm and dry. Normal capillary refill. No rashes. No jaundice. NEUROLOGICAL: Alert, awake, appropriate. Cranial nerves 2-12 intact. No deficits to light touch and temperature in face, upper extremities and lower extremities. No motor deficits in the in face, upper extremities and lower extremities. Normoreflexic in the upper and lower extremities. Normal speech. Toes are down- going bilaterally. PSYCHIATRIC: Cooperative. Good eye contact. Appropriate mood and affect. <Crystal Crump - Last Filed: 12/11/17 21:11> - Vital Signs Last Vital Signs Temp Pulse Resp BP Pulse Ox 98.0 F 82 18 136/73 100 12/11/17 14:01 12/11/17 14:01 12/11/17 14:01 12/11/17 14:01 12/11/17 14:01 <Sonia Fernandez - Last Filed: 12/11/17 21:17> Moderate Sedation - Procedure Monitoring Vital Signs: Vital Signs Temp Pulse Resp BP Pulse Ox 98.0 F 82 18 136/73 100 12/11/17 14:01 12/11/17 14:01 12/11/17 14:01 12/11/17 14:01 12/11/17 14:01 <Crystal Crump - Last Filed: 12/11/17 21:11> - Procedure Monitoring Vital Signs: Vital Signs Temp Pulse Resp BP Pulse Ox 98.0 F 82 18 136/73 100 12/11/17 14:01 12/11/17 14:01 12/11/17 14:01 12/11/17 14:01 12/11/17 14:01 <Sonia Fernandez - Last Filed: 12/11/17 21:17> ED Treatment Course - LABORATORY CBC & Chemistry Diagram: 12/11/17 14:23 12/11/17 14:23 - ADDITIONAL ORDERS Additional order review: Laboratory Results 12/11/17 12/11/17 12/11/17 14:23 14:23 14:15 PT with INR 11.50 INR 1.02 Sodium 142 Potassium 4.2 Chloride 105 Carbon Dioxide 29 Anion Gap 8 BUN 16 Creatinine 0.7 Creat Clearance w eGFR > 60 Random Glucose 199 H Calcium 8.8 Total Bilirubin 0.3 AST 12 L ALT 15 Alkaline Phosphatase 85 Total Protein 7.2 Albumin 3.4 Urine Color Ltyellow Urine Appearance Slcloudy Urine pH 6.0 Ur Specific [place] 1.013 Urine Protein Negative Urine Glucose (UA) Negative Urine Ketones Negative Urine Blood Negative Urine Nitrite Positive Urine Bilirubin Negative Urine Urobilinogen Negative Ur Leukocyte Esterase 3+ H Urine WBC (Auto) 59 Urine RBC (Auto) 4 Ur Epithelial Cells Rare Urine Bacteria Many Urine Mucus Rare 12/11/17 14:23 RBC 4.31 MCV 88.0 MCHC 33.1 RDW 15.5 MPV 7.6 D Neutrophils % 58.9 Lymphocytes % 29.4 D Monocytes % 5.1 Eosinophils % 5.9 H Basophils % 0.7 <Crystal Crump - Last Filed: 12/11/17 21:11> - LABORATORY CBC & Chemistry Diagram: 12/11/17 14:23 12/11/17 14:23 - ADDITIONAL ORDERS Additional order review: Laboratory Results 12/11/17 12/11/17 12/11/17 14:23 14:23 14:15 PT with INR 11.50 INR 1.02 Sodium 142 Potassium 4.2 Chloride 105 Carbon Dioxide 29 Anion Gap 8 BUN 16 Creatinine 0.7 Creat Clearance w eGFR > 60 Random Glucose 199 H Calcium 8.8 Total Bilirubin 0.3 AST 12 L ALT 15 Alkaline Phosphatase 85 Total Protein 7.2 Albumin 3.4 Urine Color Ltyellow Urine Appearance Slcloudy Urine pH 6.0 Ur Specific [place] 1.013 Urine Protein Negative Urine Glucose (UA) Negative Urine Ketones Negative Urine Blood Negative Urine Nitrite Positive Urine Bilirubin Negative Urine Urobilinogen Negative Ur Leukocyte Esterase 3+ H Urine WBC (Auto) 59 Urine RBC (Auto) 4 Ur Epithelial Cells Rare Urine Bacteria Many Urine Mucus Rare 12/11/17 14:23 RBC 4.31 MCV 88.0 MCHC 33.1 RDW 15.5 MPV 7.6 D Neutrophils % 58.9 Lymphocytes % 29.4 D Monocytes % 5.1 Eosinophils % 5.9 H Basophils % 0.7 <Sonia Fernandez - Last Filed: 12/11/17 21:17> Medical Decision Making - Medical Decision Making Case discussed with Dr. Dumont at 17:05. Case discussed with Dr. Braswell at 20:45. Case discussed with Dr. Carney at 21:08. <Crystal Crump - Last Filed: 12/11/17 21:11> *DC/Admit/Observation/Transfer - Attestations Scribe Attestion: Documentation prepared by Crystal Crump, acting as medical clerical assistant for Sonia Fernandez MD. <Crystal Crump - Last Filed: 12/11/17 21:11> - Discharge Dispostion Decision to Admit order: Yes <Sonia Fernandez - Last Filed: 12/11/17 21:17> Diagnosis at time of Disposition: History of ESBL E. coli infection, Abdominal fluid collection UTI (urinary tract infection) Qualifiers: Urinary tract infection type: acute cystitis Hematuria presence: without hematuria Qualified Code(s): N30.00 - Acute cystitis without hematuria - Discharge Dispostion Condition at time of disposition: Good - Referrals Referrals: Godfrey Dumont MD [Primary Care Provider] - - Patient Instructions - Post Discharge Activity
[2017-12-11] MEDS ORDERED: SODIUM CHLORIDE 1,000 ML IV STA (17:08)
[2017-12-11] MEDS ORDERED: GENTAMICIN INJECTION 80 MG in DEXTROSE 5%-WATER - 250 ML IVPB STA (20:55)
[2017-12-11] MEDS ORDERED: ERTAPENEM SODIUM 1 GM in SODIUM CHLORIDE 50 ML IVPB STA (21:15)
--- NOTE | 2017-12-11 23:22 | HP ---
CHIEF COMPLAINT: abdominal pain PCP: Julia HISTORY OF PRESENT ILLNESS: This is a 77 year old female with a significant past medical history of DM, diverticular abscess s/p admission 11/16-11/27 with drainage on 11/17, UTIs who presented to the ED with a c/o lower abdominal pain and dysuria x 3 days. ER course was notable for: (1) WBC 8.7 (2) U/a with 3+ leuk esterase Recent Travel: pt denies PAST MEDICAL HISTORY: DM, diverticulitis, UTI, chronic low back pain, HLD PAST SURGICAL HISTORY: hysterectomy Social History: Smoking: pt denies Alcohol: pt denies Drugs: pt denies Family History: unk Allergies No Known Allergies Allergy (Verified 12/11/17 14:01) HOME MEDICATIONS: 3 Medication Instructions Recorded Rosuvastatin [Crestor -] 5 mg PO DAILY 11/17/17 Acetaminophen [Tylenol .Regular 650 mg PO Q6H PRN tablet 11/23/17 Strength -] Lactobacillus Acidophilus [Bacid -] 1 tab PO DAILY tab 11/23/17 Metformin HCl [Glucophage] 500 mg PO ACBK #20 tablet MDD 1 11/27/17 Pantoprazole Sodium [Protonix -] 40 mg PO DAILY tablet.ec 11/27/17 REVIEW OF SYSTEMS CONSTITUTIONAL: Absent: fever, chills, diaphoresis, generalized weakness, malaise, loss of appetite, weight change HEENT: Absent: rhinorrhea, nasal congestion, throat pain, throat swelling, difficulty swallowing, mouth swelling, ear pain, eye pain, visual changes CARDIOVASCULAR: Absent: chest pain, syncope, palpitations, irregular heart rate, lightheadedness , peripheral edema RESPIRATORY: Absent: cough, shortness of breath, dyspnea with exertion, orthopnea, wheezing, stridor, hemoptysis GASTROINTESTINAL: Present: abdominal pain Absent: abdominal distension, nausea, vomiting, diarrhea, constipation, melena, hematochezia GENITOURINARY: Present: dysuria Absent: frequency, urgency, hesitancy, hematuria, flank pain, genital pain MUSCULOSKELETAL: Absent: myalgia, arthralgia, joint swelling, back pain, neck pain SKIN: Absent: rash, itching, pallor HEMATOLOGIC/IMMUNOLOGIC: Absent: easy bleeding, easy bruising, lymphadenopathy, frequent infections ENDOCRINE: Absent: unexplained weight gain, unexplained weight loss, heat intolerance, cold intolerance NEUROLOGIC: Absent: headache, focal weakness or paresthesias, dizziness, unsteady gait, seizure, mental status changes, bladder or bowel incontinence PSYCHIATRIC: Absent: anxiety, depression, suicidal or homicidal ideation, hallucinations. PHYSICAL EXAMINATION Vital Signs - 24 hr 3 12/11/17 14:01 Temperature 98.0 F Pulse Rate 82 Respiratory 18 Rate Blood Pressure 136/73 O2 Sat by Pulse 100 Oximetry (%) GENERAL: Awake, alert, and fully oriented, in no acute distress. HEAD: Normal with no signs of trauma. EYES: Pupils equal, round and reactive to light, extraocular movements intact, sclera anicteric, conjunctiva clear. No lid lag. EARS, NOSE, THROAT: Ears normal, nares patent, oropharynx clear without exudates. Moist mucous membranes. NECK: Normal range of motion, supple without lymphadenopathy, JVD, or masses. LUNGS: Breath sounds equal, clear to auscultation bilaterally. No wheezes, and no crackles. No accessory muscle use. HEART: Regular rate and rhythm, normal S1 and S2 without murmur, rub or gallop. ABDOMEN: Soft, tender on palpation LLQ and suprapubic area, not distended, normoactive bowel sounds, no guarding, no rebound, no masses. No hepatomegaly or splenomegaly. MUSCULOSKELETAL: Normal range of motion at all joints. No bony deformities or tenderness. No CVA tenderness. UPPER EXTREMITIES: 2+ pulses, warm, well-perfused. No cyanosis. No clubbing. No peripheral edema. LOWER EXTREMITIES: 2+ pulses, warm, well-perfused. No calf tenderness. No peripheral edema. NEUROLOGICAL: Cranial nerves II-XII intact. Normal speech. Normal gait. PSYCHIATRIC: Cooperative. Good eye contact. Appropriate mood and affect. SKIN: Warm, dry, normal turgor, no rashes or lesions noted, normal capillary refill. Laboratory Results - last 24 hr 3 12/11/17 12/11/17 12/11/17 14:15 14:23 14:23 WBC 8.7 RBC 4.31 Hgb 12.6 Hct 38.0 MCV 88.0 MCH 29.2 MCHC 33.1 RDW 15.5 Plt Count 373 D MPV 7.6 D Neutrophils % 58.9 Lymphocytes % 29.4 D Monocytes % 5.1 Eosinophils % 5.9 H Basophils % 0.7 Nucleated RBC % 0 PT with INR 11.50 INR 1.02 Sodium Potassium Chloride Carbon Dioxide Anion Gap BUN Creatinine Creat Clearance w eGFR Random Glucose Calcium Total Bilirubin AST ALT Alkaline Phosphatase Total Protein Albumin Urine Color Ltyellow Urine Appearance Slcloudy Urine pH 6.0 Ur Specific [place] 1.013 Urine Protein Negative Urine Glucose (UA) Negative Urine Ketones Negative Urine Blood Negative Urine Nitrite Positive Urine Bilirubin Negative Urine Urobilinogen Negative Ur Leukocyte Esterase 3+ H Urine WBC (Auto) 59 Urine RBC (Auto) 4 Ur Epithelial Cells Rare Urine Bacteria Many Urine Mucus Rare 3 12/11/17 14:23 WBC RBC Hgb Hct MCV MCH MCHC RDW Plt Count MPV Neutrophils % Lymphocytes % Monocytes % Eosinophils % Basophils % Nucleated RBC % PT with INR INR Sodium 142 Potassium 4.2 Chloride 105 Carbon Dioxide 29 Anion Gap 8 BUN 16 Creatinine 0.7 Creat Clearance w eGFR > 60 Random Glucose 199 H Calcium 8.8 Total Bilirubin 0.3 AST 12 L ALT 15 Alkaline Phosphatase 85 Total Protein 7.2 Albumin 3.4 Urine Color Urine Appearance Urine pH Ur Specific [place] Urine Protein Urine Glucose (UA) Urine Ketones Urine Blood Urine Nitrite Urine Bilirubin Urine Urobilinogen Ur Leukocyte Esterase Urine WBC (Auto) Urine RBC (Auto) Ur Epithelial Cells Urine Bacteria Urine Mucus Radiology Reports CT abd/pel with contrast IMPRESSION: At the site of a diverticular abscess within the left inferior pelvis posteriorly the current exam demonstrates a very small 1.4 x 0.5 x 0.4 cm focus of fluid accumulation with a thick concentric wall. This fluid collection had measured 4.4 x 4 cm at the time of the prior CT study of 11/21/2017. There has been interval removal of a left-sided transgluteal percutaneous abscess drainage catheter. Correlate clinically and with close follow-up CT. There is diminished sigmoid wall thickening consistent with resolving acute diverticulitis. A trace amount of free fluid is again seen within the right lower pelvis posteriorly. There is partial imaging of a focal opacity within the right lower lobe medially without gross interval change. Please refer to the chest CT report of 07/03/2017. Correlation with close follow- up chest CT is suggested to document resolution of this finding and exclude underlying neoplastic disease. Reported By: Vik Hickman MD 12/11/17 [id number] ASSESSMENT/PLAN: 77yF with PMH DM, diverticulitis, UTI, chronic low back pain, HLD presented to the ED with lower abdominal pain. UTI - recent diverticular abscess grew out ESBL - ED d/w Dr. Carney who recommended ertapenem, given in ED - ID consult appreciated - cont ertapenem daily diverticular abscess - significantly reduced in size from prior CT scan - cont ertapenem - GI consult DM - home metformin held s/p IV contrast - BGM AC/HS with novolog SS HLD - cont home crestor DVT PPX - heparin 5000u BID Dispo: Pt currently requires further inpatient management of her emergent condition. Visit type - Emergency Visit Emergency Visit: Yes ED Registration Date: 12/11/17 Care time: The patient presented to the Emergency Department on the above date and was hospitalized for further evaluation of their emergent condition. - New Patient This patient is new to me today: Yes Date on this admission: 12/11/17 - Critical Care Critical Care patient: No Hospitalist Screening - Colonoscopy Questionnaire Colonoscopy Questionnaire: Colonoscopy Questionnaire - Patient: 50 - 75 years old and never had a screening colonoscopy: No History of colon or rectal polyps, or CA: No History of IBD, Crohn's disease or UC: No History of abdominal radiation therapy as a child: No - Relative: 1 with colon or rectal CA, or polyps at age 60 or younger: Unknown Colon or rectal CA diagnosed at age 45 or younger: Unknown Multiple relatives with colon or rectal CA: Unknown - Outcome: Screening Result: Negative Screen
[2017-12-12] MEDS ORDERED: ACETAMINOPHEN 325 MG TABLET (FP) PO PRN (00:43)
[2017-12-12] MEDS: INSULIN SLIDING SCALE (NOVOLOG) 1 VIAL SQ SCH ×4 (07:58→22:40)
[2017-12-12 08:43] LABS: BASO % 0.6 % (0-2.0); EOS % 5.1 % (0-4.5); HEMATOCRIT 38.5 % (32.4-45.2); HEMOGLOBIN 12.6 GM/dL (10.7-15.3); LYMPH % 25.3 % (8-40); MCH 28.6 pg (25.7-33.7); MCHC 32.6 g/dl (32.0-36.0); MEAN CELL VOLUME 87.7 fl (80-96); MEAN PLT VOLUME 7.6 fl (7.5-11.1); MONO % 6.2 % (3.8-10.2); NEUT % 62.8 % (42.8-82.8); PLATELET COUNT 374 K/MM3 (134-434); RDW 15.6 % (11.6-15.6); WHITE BLOOD COUNT 7.9 K/mm3 (4.0-10.0)
--- NOTE | 2017-12-12 08:44 | CONSULT ---
Consultation: REQUESTING PROVIDER: CONSULT REQUEST: We have been asked to medically evaluate this patient for UTI / hx of E. coli ESBL. HISTORY OF PRESENT ILLNESS: 77F with PMH of DM, diverticular abscess growing E. coli ESBL (recent admission 11/17-11/27/17, with drainage on 11/17), UTI's, presented to hospital with lower abdominal pain and dysuria x 3 days. Pt was sent by PCP to ER for eval of symptoms, given recent diverticular abscess. On CT, diverticular abscess seen to be smaller in size and sigmoid wall thickening diminished compared to prior hospitalization, suggesting resolving acute diverticulitis. On UA, pt found to have +UTI (3+ LE, +nitrite, 59 WBCs). Pt denies chest pain, sob, nausea, vomiting, diarrhea, constipation, hematuria, fever, chills. PMH: chronic low back pain hld REVIEW OF SYSTEMS: CONSTITUTIONAL: Absent: fever, chills, diaphoresis HEENT: Absent: rhinorrhea, nasal congestion, ear pain, eye pain, visual changes CARDIOVASCULAR: Absent: chest pain, palpitations, irregular heart rate, peripheral edema RESPIRATORY: Absent: cough, shortness of breath, wheezing, stridor GASTROINTESTINAL: lower abdominal / suprapubic pain Absent: abdominal distension, nausea, vomiting, diarrhea, constipation GENITOURINARY: dysuria Absent: frequency, hematuria NEUROLOGIC: Absent: headache, focal weakness or paresthesias PSYCHIATRIC: Absent: anxiety, depression PHYSICAL EXAMINATION Vital Signs - 24 hr 12/11/17 14:01 Temperature 98.0 F Pulse Rate 82 Respiratory 18 Rate Blood Pressure 136/73 O2 Sat by Pulse 100 Oximetry (%) GENERAL: Awake, alert, and fully oriented, in no acute distress. LUNGS: Breath sounds equal, clear to auscultation bilaterally. No wheezes, and no crackles. No accessory muscle use. HEART: Regular rate and rhythm, normal S1 and S2 without murmur, rub or gallop. ABDOMEN: Greg lower abdomen and suprapubic region tender to palpation. Soft, not distended, no guarding. LOWER EXTREMITIES: Warm, well-perfused. No calf tenderness. No peripheral edema. PSYCHIATRIC: Cooperative. Good eye contact. Appropriate mood and affect. Laboratory Results - last 24 hr 12/11/17 12/11/17 12/11/17 14:15 14:23 14:23 WBC 8.7 RBC 4.31 Hgb 12.6 Hct 38.0 MCV 88.0 MCH 29.2 MCHC 33.1 RDW 15.5 Plt Count 373 D MPV 7.6 D Neutrophils % 58.9 Lymphocytes % 29.4 D Monocytes % 5.1 Eosinophils % 5.9 H Basophils % 0.7 Nucleated RBC % 0 PT with INR 11.50 INR 1.02 Sodium Potassium Chloride Carbon Dioxide Anion Gap BUN Creatinine Creat Clearance w eGFR POC Glucometer Random Glucose Calcium Total Bilirubin AST ALT Alkaline Phosphatase Total Protein Albumin Urine Color Ltyellow Urine Appearance Slcloudy Urine pH 6.0 Ur Specific [place] 1.013 Urine Protein Negative Urine Glucose (UA) Negative Urine Ketones Negative Urine Blood Negative Urine Nitrite Positive Urine Bilirubin Negative Urine Urobilinogen Negative Ur Leukocyte Esterase 3+ H Urine WBC (Auto) 59 Urine RBC (Auto) 4 Ur Epithelial Cells Rare Urine Bacteria Many Urine Mucus Rare 12/11/17 12/12/17 14:23 07:52 WBC RBC Hgb Hct MCV MCH MCHC RDW Plt Count MPV Neutrophils % Lymphocytes % Monocytes % Eosinophils % Basophils % Nucleated RBC % PT with INR INR Sodium 142 Potassium 4.2 Chloride 105 Carbon Dioxide 29 Anion Gap 8 BUN 16 Creatinine 0.7 Creat Clearance w eGFR > 60 POC Glucometer [id number] Random Glucose 199 H Calcium 8.8 Total Bilirubin 0.3 AST 12 L ALT 15 Alkaline Phosphatase 85 Total Protein 7.2 Albumin 3.4 Urine Color Urine Appearance Urine pH Ur Specific [place] Urine Protein Urine Glucose (UA) Urine Ketones Urine Blood Urine Nitrite Urine Bilirubin Urine Urobilinogen Ur Leukocyte Esterase Urine WBC (Auto) Urine RBC (Auto) Ur Epithelial Cells Urine Bacteria Urine Mucus Active Medications Generic Name Dose Route Start Last Admin Trade Name Freq PRN Reason Stop Dose Admin Acetaminophen 650 mg 12/12/17 00:43 Tylenol - PO Q6H PRN PAIN LEVEL 1-5 OR FEVER Heparin Sodium (Porcine) 5,000 unit 12/12/17 10:00 Heparin - SQ BID [facility] Ertapenem 1 gm/ Sodium 50 mls @ 50 mls/hr 12/12/17 22:00 Chloride IVPB [facility] Insulin Aspart 1 vial 12/12/17 22:00 Novolog Vial Sliding Scale - SQ [facility] Protocol Insulin Aspart 1 vial 12/12/17 07:00 12/12/17 07:58 Novolog Vial Sliding Scale - SQ Not Given TIDAC [facility] Protocol Lactobacillus Acidophilus 1 tab 12/12/17 10:00 Bacid - PO DAILY [facility] Pantoprazole Sodium 40 mg 12/12/17 10:00 Protonix - PO DAILY [facility] Rosuvastatin Calcium 5 mg 12/12/17 10:00 Crestor - PO DAILY [facility] ASSESSMENT/PLAN: 77F with PMH of DM, diverticular abscess growing E. coli ESBL (recent admission 11/17-11/27/17, with drainage on 11/17), UTI's, presented to hospital with lower abdominal pain and dysuria x 3 days. # diverticular abscess - growing E. coli ESBL on prior admission - Ab/Pel CT -> abscess smaller in size, and sigmoid wall thickening diminished - f/u CRP - Day 2 IV Ertapenem # UTI - f/u urine culture - afebrile, no leukocytosis - given hx of E. coi ESBL in divericular abscess -> continue Ertapenem # DM - BGMs, Novolog SSI, managed by primary team Dispo: We will continue to follow the patient. Thank you for this consultative opportunity. Visit type - Emergency Visit Emergency Visit: Yes ED Registration Date: 12/11/17 Care time: The patient presented to the Emergency Department on the above date and was hospitalized for further evaluation of their emergent condition. - New Patient This patient is new to me today: Yes Date on this admission: 12/12/17 - Critical Care Critical Care patient: No
[2017-12-12 09:07] LABS: BLOOD UREA NITROGEN 12 mg/dL (7-18); CHLORIDE 107 mmol/L (98-107); CREATININE 0.6 mg/dL (0.55-1.02); POTASSIUM 4.2 mmol/L (3.5-5.1); SODIUM 143 mmol/L (136-145)
[2017-12-12 09:13] LABS: ANION GAP 7 (8-16); CALCIUM 8.9 mg/dL (8.5-10.1); CO2 29 mmol/L (21-32); GLUCOSE,RANDOM 128 mg/dL (74-106); MAGNESIUM 2.2 mg/dL (1.8-2.4); PHOSPHOROUS 3.4 mg/dL (2.5-4.9)
--- NOTE | 2017-12-12 09:15 | PN ---
Progress Note, Physician History of Present Illness: 77 year old female with a significant past medical history of DM, diverticular abscess s/p admission 11/16-11/27 with drainage on 11/17, UTIs who presented to the ED with a c/o lower abdominal pain and dysuria x 3 days. - Current Medication List Current Medications: Active Medications Acetaminophen (Tylenol -) 650 mg PO Q6H PRN PRN Reason: PAIN LEVEL 1-5 OR FEVER Heparin Sodium (Porcine) (Heparin -) 5,000 unit SQ BID [facility] Ertapenem 1 gm/ Sodium (Chloride) 50 mls @ 50 mls/hr IVPB HS [facility] Insulin Aspart (Novolog Vial Sliding Scale -) 1 vial SQ HS [facility]; Protocol Insulin Aspart (Novolog Vial Sliding Scale -) 1 vial SQ TIDAC [facility]; Protocol Last Admin: 12/12/17 07:58 Dose: Not Given Lactobacillus Acidophilus (Bacid -) 1 tab PO DAILY [facility] Pantoprazole Sodium (Protonix -) 40 mg PO DAILY [facility] Rosuvastatin Calcium (Crestor -) 5 mg PO DAILY [facility] - Objective Vital Signs: Vital Signs Temperature 98.0 F 12/11/17 14:01 Pulse Rate 82 12/11/17 14:01 Respiratory Rate 18 12/11/17 14:01 Blood Pressure 136/73 12/11/17 14:01 O2 Sat by Pulse Oximetry (%) 100 12/11/17 14:01 Cardiovascular: Yes: Regular Rate and Rhythm Respiratory: Yes: Regular, CTA Bilaterally Gastrointestinal: Yes: Normal Bowel Sounds, Soft, Other (mild tenderness in the suprapubic area) Labs: CBC, BMP 12/12/17 08:12 12/12/17 08:12 INR, PTT INR 1.02 (0.82-1.09) 12/11/17 14:23 Problem List - Problems (1) History of ESBL E. coli infection Assessment/Plan: - recent diverticular abscess grew out ESBL - ED d/w Dr. Carney who recommended ertapenem, given in ED - ID consult appreciated - cont ertapenem daily Code(s): Z86.19 - PERSONAL HISTORY OF OTHER INFECTIOUS AND PARASITIC DISEASES (2) Abdominal pain Code(s): R10.9 - UNSPECIFIED ABDOMINAL PAIN Qualifiers: Abdominal location: unspecified location Qualified Code(s): R10.9 - Unspecified abdominal pain (3) Pelvic abscess Assessment/Plan: - significantly reduced in size from prior CT scan - cont ertapenem - GI consult -Surgical consult CT abd/pel with contrast IMPRESSION: At the site of a diverticular abscess within the left inferior pelvis posteriorly the current exam demonstrates a very small 1.4 x 0.5 x 0.4 cm focus of fluid accumulation with a thick concentric wall. This fluid collection had measured 4.4 x 4 cm at the time of the prior CT study of 11/21/2017. There has been interval removal of a left-sided transgluteal percutaneous abscess drainage catheter. Correlate clinically and with close follow-up CT. There is diminished sigmoid wall thickening consistent with resolving acute diverticulitis. A trace amount of free fluid is again seen within the right lower pelvis posteriorly. There is partial imaging of a focal opacity within the right lower lobe medially without gross interval change. Please refer to the chest CT report of 07/03/2017. Correlation with close follow- up chest CT is suggested to document resolution of this finding and exclude underlying neoplastic disease. Reported By: Vik Hickman MD 12/11/17 1903 Code(s): [id number] - (4) Diabetes Assessment/Plan: - home metformin held s/p IV contrast - BGM AC/HS with novolog SS Code(s): E11.9 - TYPE 2 DIABETES MELLITUS WITHOUT COMPLICATIONS
--- NOTE | 2017-12-12 09:26 | PN ---
Teaching Attending Note Name of Resident: Adelaida Mayes ATTENDING PHYSICIAN STATEMENT I saw and evaluated the patient. I reviewed the resident's note and discussed the case with the resident. I agree with the resident's findings and plan as documented. SUBJECTIVE: recently treated for diverticular abscess (drained)- hospitalized 11/16 to 11/27 returns with abdominal pain and dysuria no fevers no nausea or vomiting OBJECTIVE: Vital Signs Period Temp Pulse Resp BP Sys/Paulson Pulse Ox Last 24 Hr 97.8 F-98.5 F 81-83 16-18 111-127/43-78 99-99 cor-rrr lungs clear abd soft,nt ext no edema CBC, BMP 12/12/17 08:12 12/12/17 08:12 Microbiology 12/11/17 14:15 Urine - Urine Clean Catch Urine Culture - Preliminary Non Lactose Fermenting Gnb ct scan reviewed with radiologise- smalll residual phlegmon at site of prior abscess ASSESSMENT AND PLAN: UTI- started on ertapenem last night no blood cultures sent continue ertapenem f/u cultures contact isolation recent diverticular abscess - IR drained- ecoli esbl Problem List - Problems (1) UTI (urinary tract infection) Code(s): N39.0 - URINARY TRACT INFECTION, SITE NOT SPECIFIED Qualifiers: Urinary tract infection type: acute cystitis Hematuria presence: without hematuria Qualified Code(s): N30.00 - Acute cystitis without hematuria (2) History of diverticular abscess of colon Code(s): Z87.19 - PERSONAL HISTORY OF OTHER DISEASES OF THE DIGESTIVE SYSTEM (3) History of ESBL E. coli infection Code(s): Z86.19 - PERSONAL HISTORY OF OTHER INFECTIOUS AND PARASITIC DISEASES
--- NOTE | 2017-12-12 10:29 | CON.GI ---
Consult Consult Specialty:: GI Reason for Consultation:: Suprapubic pain. Treated for diverticular abscess 1 month ago - History of Present Illness History of Present Illness: Chart and recent admissions reviewed. A 77-year-old female with recently treated diverticular abscess presents with 3 days of suprapubic pain and burning on urination. denies nausea, vomiting, melena, hematochezia, severe abdominal tenderness, fever, chills. CT scan reveals small residual fluid collection over 1.40.5 cm compared to 4.4 x 4.4 cm 1 months ago, possibly resolving sigmoid diverticulitis was also mentioned. UA suggests UTI. No leukocytosis, fever on admission - History Source History Provided By: Patient, Medical Record - Alcohol/Substance Use Hx Alcohol Use: No - Smoking History Smoking history: Former smoker Have you smoked in the past 12 months: No If you are a former smoker, when did you quit?: 3 yrs ago Home Medications - Allergies Allergies/Adverse Reactions: Allergies Allergy/AdvReac Type Severity Reaction Status Date / Time No Known Allergies Allergy Verified 12/11/17 14:01 - Home Medications Home Medications: Ambulatory Orders Rosuvastatin [Crestor -] 5 mg PO DAILY 11/17/17 Acetaminophen [Tylenol .Regular Strength -] 650 mg PO Q6H PRN tablet 11/23/17 Lactobacillus Acidophilus [Bacid -] 1 tab PO DAILY tab 11/23/17 Pantoprazole Sodium [Protonix] 40 mg PO DAILY #30 tablet. 11/23/17 Metformin HCl [Glucophage] 500 mg PO ACBK #20 tablet MDD 1 11/27/17 Pantoprazole Sodium [Protonix -] 40 mg PO DAILY tablet.ec 11/27/17 Family Disease History - Family Disease History Family History: Unremarkable (noncontributory) Review of Systems Findings/Remarks: as per H&P and HPI Physical Exam-GI Vital Signs: Vital Signs Temperature 97.8 F 12/12/17 09:48 Pulse Rate 81 12/12/17 09:48 Respiratory Rate 18 12/12/17 09:48 Blood Pressure 111/43 12/12/17 09:48 O2 Sat by Pulse Oximetry (%) 99 12/12/17 09:48 Constitutional: Yes: No Distress, Calm Eyes: Yes: Conjunctiva Clear HENT: Yes: Atraumatic Neck: Yes: Supple Cardiovascular: Yes: Regular Rate and Rhythm Respiratory: Yes: Regular Gastrointestinal Inspection: No: Distention ...Auscultate: Yes: Normoactive Bowel Sounds ...Palpate: Yes: Soft. No: Firm/Rigid, Guarding, Tenderness, Epigastium, Tenderness, Rebound Neurological: Yes: Alert Labs: CBC, BMP 12/12/17 08:12 12/12/17 08:12 INR, PTT INR 1.02 (0.82-1.09) 12/11/17 14:23 Laboratory Last Values WBC 7.9 K/mm3 (4.0-10.0) 12/12/17 08:12 RBC 4.40 M/mm3 (3.60-5.2) 12/12/17 08:12 Hgb 12.6 GM/dL (10.7-15.3) 12/12/17 08:12 Hct 38.5 % (32.4-45.2) 12/12/17 08:12 MCV 87.7 fl (80-96) 12/12/17 08:12 MCH 28.6 pg (25.7-33.7) 12/12/17 08:12 MCHC 32.6 g/dl (32.0-36.0) 12/12/17 08:12 RDW 15.6 % (11.6-15.6) 12/12/17 08:12 Plt Count 374 K/MM3 (134-434) 12/12/17 08:12 MPV 7.6 fl (7.5-11.1) 12/12/17 08:12 Neutrophils % 62.8 % (42.8-82.8) 12/12/17 08:12 Lymphocytes % 25.3 % (8-40) 12/12/17 08:12 Monocytes % 6.2 % (3.8-10.2) 12/12/17 08:12 Eosinophils % 5.1 % (0-4.5) H 12/12/17 08:12 Basophils % 0.6 % (0-2.0) 12/12/17 08:12 Nucleated RBC % 0 % (0-0) 12/12/17 08:12 PT with INR 11.50 SEC (9.7-13.0) 12/11/17 14:23 INR 1.02 (0.82-1.09) 12/11/17 14:23 Sodium 143 mmol/L (136-145) 12/12/17 08:12 Potassium 4.2 mmol/L (3.5-5.1) 12/12/17 08:12 Chloride 107 mmol/L (98-107) 12/12/17 08:12 Carbon Dioxide 29 mmol/L (21-32) 12/12/17 08:12 Anion Gap 7 (8-16) L 12/12/17 08:12 BUN 12 mg/dL (7-18) 12/12/17 08:12 Creatinine 0.6 mg/dL (0.55-1.02) 12/12/17 08:12 Creat Clearance w eGFR > 60 (>60) 12/11/17 14:23 POC Glucometer 133.93290 UNITS (80-120) 12/12/17 07:52 Random Glucose 128 mg/dL (74-106) H 12/12/17 08:12 Calcium 8.9 mg/dL (8.5-10.1) 12/12/17 08:12 Phosphorus 3.4 mg/dL (2.5-4.9) 12/12/17 08:12 Magnesium 2.2 mg/dL (1.8-2.4) 12/12/17 08:12 Total Bilirubin 0.3 mg/dL (0.2-1.0) 12/11/17 14:23 AST 12 U/L (15-37) L 12/11/17 14:23 ALT 15 U/L (12-78) 12/11/17 14:23 Alkaline Phosphatase 85 U/L (45-117) 12/11/17 14:23 Total Protein 7.2 g/dl (6.4-8.2) 12/11/17 14:23 Albumin 3.4 g/dl (3.4-5.0) 12/11/17 14:23 Urine Color Ltyellow 12/11/17 14:15 Urine Appearance Slcloudy 12/11/17 14:15 Urine pH 6.0 (5.0-8.0) 12/11/17 14:15 Ur Specific [place] 1.013 (1.001-1.035) 12/11/17 14:15 Urine Protein Negative (NEGATIVE) 12/11/17 14:15 Urine Glucose (UA) Negative (NEGATIVE) 12/11/17 14:15 Urine Ketones Negative (NEGATIVE) 12/11/17 14:15 Urine Blood Negative (NEGATIVE) 12/11/17 14:15 Urine Nitrite Positive (NEGATIVE) 12/11/17 14:15 Urine Bilirubin Negative (<2.0 mg/dL) 12/11/17 14:15 Urine Urobilinogen Negative mg/dL (0.2-1.0) 12/11/17 14:15 Ur Leukocyte Esterase 3+ (NEGATIVE) H 12/11/17 14:15 Urine WBC (Auto) 59 /hpf (3-5) 12/11/17 14:15 Urine RBC (Auto) 4 /hpf (0-3) 12/11/17 14:15 Ur Epithelial Cells Rare /HPF (FEW) 12/11/17 14:15 Urine Bacteria Many /hpf (NONE SEEN) 12/11/17 14:15 Urine Mucus Rare 12/11/17 14:15 Imaging - Results Cat Scan: Report Reviewed Problem List - Problems (1) Suprapubic pain Code(s): R10.2 - PELVIC AND PERINEAL PAIN (2) History of diverticulitis Code(s): Z87.19 - PERSONAL HISTORY OF OTHER DISEASES OF THE DIGESTIVE SYSTEM (3) History of diverticular abscess of colon Code(s): Z87.19 - PERSONAL HISTORY OF OTHER DISEASES OF THE DIGESTIVE SYSTEM (4) UTI (urinary tract infection) Code(s): N39.0 - URINARY TRACT INFECTION, SITE NOT SPECIFIED Qualifiers: Urinary tract infection type: acute cystitis Hematuria presence: without hematuria Qualified Code(s): N30.00 - Acute cystitis without hematuria Assessment/Plan a 77-year-old female with the above history presents with abnormal urinalysis suggestive of UTI and the CAT scan findings suggestive of possible resolving, sigmoid diverticulitis. No new fluid collections, abscesses noted. Prior abscess appeared improved. The patient does not exhibit signs of toxicity, acute abdomen, sepsis. Recommend starting low residual diet, treating UTI and observing.
[2017-12-12] MEDS: ROSUVASTATIN CA 5 MG TABLET (FP) PO SCH (12:22)
[2017-12-12] MEDS: LACTOBACILLUS ACIDOPHILUS 1 TABLET PO SCH (12:22)
[2017-12-12] MEDS: HEPARIN NA (PORCINE) 5,000 UNITS/ML 1ML VIAL SQ SCH ×2 (12:23→22:36)
[2017-12-12] MEDS: PANTOPRAZOLE 40 MG TABLET (FP) PO SCH (12:23)
--- NOTE | 2017-12-12 14:22 | EKG ---
Test Reason : Blood Pressure : / mmHG Vent. Rate : 084 BPM Atrial Rate : 084 BPM P-R Int : 146 ms QRS Dur : 068 ms QT Int : 388 ms P-R-T Axes : 060 025 055 degrees QTc Int : 458 ms NORMAL SINUS RHYTHM NORMAL ECG WHEN COMPARED WITH ECG OF 17-NOV-2017 06:03, NO SIGNIFICANT CHANGE WAS FOUND Confirmed by ROWENA PRUITT MD ([id number]) on 12/12/2017 2:21:52 PM Referred By: Confirmed By:ROWENA PRUITT MD
[2017-12-12] MEDS ORDERED: ERTAPENEM SODIUM 1 GM/50 ML PRE-DOCKED IVPB SCH (22:00)
[2017-12-12] MEDS: ERTAPENEM SODIUM 1 GM in SODIUM CHLORIDE 50 ML IVPB SCH (22:36)
[2017-12-13 00:01] VITALS: BMI 26.9
[2017-12-13 07:34] LABS: BASO % 0.8 % (0-2.0); EOS % 6.5 % (0-4.5); HEMATOCRIT 39.3 % (32.4-45.2); MCH 28.9 pg (25.7-33.7); MCHC 32.9 g/dl (32.0-36.0); MEAN CELL VOLUME 87.8 fl (80-96); MEAN PLT VOLUME 7.7 fl (7.5-11.1); MONO % 7.1 % (3.8-10.2); NEUT % 51.6 % (42.8-82.8); PLATELET COUNT 325 K/MM3 (134-434); RBC 4.48 M/mm3 (3.60-5.2); RDW 15.6 % (11.6-15.6); WHITE BLOOD COUNT 7.9 K/mm3 (4.0-10.0)
[2017-12-13] MEDS: INSULIN SLIDING SCALE (NOVOLOG) 1 VIAL SQ SCH ×4 (07:36→22:42)
[2017-12-13 07:58] LABS: ALBUMIN 3.4 g/dl (3.4-5.0); ANION GAP 7 (8-16); BLOOD UREA NITROGEN 12 mg/dL (7-18); CHLORIDE 105 mmol/L (98-107); CO2 30 mmol/L (21-32); GLUCOSE,RANDOM 121 mg/dL (74-106); POTASSIUM 4.4 mmol/L (3.5-5.1); SODIUM 142 mmol/L (136-145)
[2017-12-13 08:02] LABS: ALK PHOS 86 U/L (45-117); BILIRUBIN,TOTAL 0.4 mg/dL (0.2-1.0); CREATININE 0.6 mg/dL (0.55-1.02); SGOT/AST 10 U/L (15-37); SGPT/ALT 13 U/L (12-78); TOT PROT 7.1 g/dl (6.4-8.2)
--- NOTE | 2017-12-13 10:31 | PN ---
Progress Note, Physician Chief Complaint: Complicated UTI History of Present Illness: NAD,, lying in bed c/o of supra pubic pain seen by ID On IV abx - Current Medication List Current Medications: Active Medications Acetaminophen (Tylenol -) 650 mg PO Q6H PRN PRN Reason: PAIN LEVEL 1-5 OR FEVER Heparin Sodium (Porcine) (Heparin -) 5,000 unit SQ BID [facility] Last Admin: 12/12/17 22:36 Dose: 5,000 unit Ertapenem 1 gm/ Sodium (Chloride) 50 mls @ 50 mls/hr IVPB HS [facility] Last Admin: 12/12/17 22:36 Dose: 50 mls/hr Insulin Aspart (Novolog Vial Sliding Scale -) 1 vial SQ HS [facility]; Protocol Last Admin: 12/12/17 22:40 Dose: Not Given Insulin Aspart (Novolog Vial Sliding Scale -) 1 vial SQ TIDAC [facility]; Protocol Last Admin: 12/13/17 07:36 Dose: Not Given Lactobacillus Acidophilus (Bacid -) 1 tab PO DAILY [facility] Last Admin: 12/12/17 12:22 Dose: 1 tab Pantoprazole Sodium (Protonix -) 40 mg PO DAILY [facility] Last Admin: 12/12/17 12:23 Dose: 40 mg Rosuvastatin Calcium (Crestor -) 5 mg PO DAILY [facility] Last Admin: 12/12/17 12:22 Dose: 5 mg - Objective Vital Signs: Vital Signs Temperature 97.9 F 12/13/17 10:00 Pulse Rate 74 12/13/17 10:00 Respiratory Rate 18 12/13/17 10:00 Blood Pressure 144/57 12/13/17 10:00 O2 Sat by Pulse Oximetry (%) 99 12/12/17 12:00 Constitutional: Yes: Well Nourished, No Distress, Calm Cardiovascular: Yes: Regular Rate and Rhythm Respiratory: Yes: Regular Gastrointestinal: Yes: Normal Bowel Sounds, Soft Musculoskeletal: Yes: WNL Extremities: Yes: WNL Edema: No Peripheral Pulses WNL: Yes Neurological: Yes: Alert, Oriented Psychiatric: Yes: Alert, Oriented Labs: CBC, BMP 12/13/17 06:00 12/13/17 06:00 INR, PTT INR 1.02 (0.82-1.09) 12/11/17 14:23 Problem List - Problems (1) History of ESBL E. coli infection Assessment/Plan: -UC pending -IV abx -ID consult appreciated -afebrile, no leukocytosis Code(s): Z86.19 - PERSONAL HISTORY OF OTHER INFECTIOUS AND PARASITIC DISEASES (2) History of diverticular abscess of colon Assessment/Plan: -CT abdomen reviewed -Seen by GI -Surgery consult Code(s): Z87.19 - PERSONAL HISTORY OF OTHER DISEASES OF THE DIGESTIVE SYSTEM (3) Diabetes Assessment/Plan: -diabetic diet -BGM ACHS -Insulin sliding scale -last A1c 7.9 -on metformin at home Code(s): E11.9 - TYPE 2 DIABETES MELLITUS WITHOUT COMPLICATIONS Assessment/Plan see problem list dvt prophylaxis
[2017-12-13] MEDS: LACTOBACILLUS ACIDOPHILUS 1 TABLET PO SCH (10:38)
[2017-12-13] MEDS: ROSUVASTATIN CA 5 MG TABLET (FP) PO SCH (10:38)
[2017-12-13] MEDS: HEPARIN NA (PORCINE) 5,000 UNITS/ML 1ML VIAL SQ SCH ×2 (10:38→22:42)
[2017-12-13] MEDS: PANTOPRAZOLE 40 MG TABLET (FP) PO SCH (10:38)
--- NOTE | 2017-12-13 10:46 | PN ---
Progress Note (short form) - Note Progress Note: ID Ertepenem day 2 Selected Entries 12/13/17 06:00 Temperature 98.1 F Pulse Rate 80 Respiratory 16 Rate Blood Pressure 118/51 Microbiology 12/11/17 14:15 Urine - Urine Clean Catch Urine Culture - Preliminary Non Lactose Fermenting Gnb Laboratory Tests 12/11/17 12/13/17 14:15 06:00 WBC 7.9 Hgb 13.0 Hct 39.3 Plt Count 325 Urine RBC (Auto) 4 Assessment Treatment for UTI ( ESBL previous in collection) but this a NLF ? different organism Plan Tomorrow we can consider switch to po therapy
--- NOTE | 2017-12-13 11:16 | PN ---
Progress Note (short form) - Note Progress Note: Attending Surgeon Patient seen and evaluated; chart reviewed; patient known from previous admission w/diverticulitis and abscess drainage now returned w/burning on urination and suprapubic pain; she is feeling better since admission; no c/o c/ w a colo-vesical or colo-vaginal fistula. O/E VSS AF abdomen-soft and non tender WBC-nl; cultures noted IMP:UTI w/o evidence of acute recurrent diverticulitis or colo vaginal/ colovesical fistula PLAN: As per primary team; will need OPD GI/Surgery f/u and f/u PO imaging. Ghassan France MD FACS
--- NOTE | 2017-12-13 14:58 | PN ---
Progress Note, Physician History of Present Illness: Reports mild suprapubic pain. Reports no nausea, vomiting, abdominal pain, diarrhea. - Current Medication List Current Medications: Active Medications Acetaminophen (Tylenol -) 650 mg PO Q6H PRN PRN Reason: PAIN LEVEL 1-5 OR FEVER Heparin Sodium (Porcine) (Heparin -) 5,000 unit SQ BID [facility] Last Admin: 12/13/17 10:38 Dose: 5,000 unit Ertapenem 1 gm/ Sodium (Chloride) 50 mls @ 50 mls/hr IVPB HS [facility] Last Admin: 12/12/17 22:36 Dose: 50 mls/hr Insulin Aspart (Novolog Vial Sliding Scale -) 1 vial SQ HS [facility]; Protocol Last Admin: 12/12/17 22:40 Dose: Not Given Insulin Aspart (Novolog Vial Sliding Scale -) 1 vial SQ TIDAC [facility]; Protocol Last Admin: 12/13/17 11:38 Dose: Not Given Lactobacillus Acidophilus (Bacid -) 1 tab PO DAILY [facility] Last Admin: 12/13/17 10:38 Dose: 1 tab Pantoprazole Sodium (Protonix -) 40 mg PO DAILY [facility] Last Admin: 12/13/17 10:38 Dose: 40 mg Rosuvastatin Calcium (Crestor -) 5 mg PO DAILY [facility] Last Admin: 12/13/17 10:38 Dose: 5 mg - Objective Vital Signs: Vital Signs Temperature 97.6 F 12/13/17 13:39 Pulse Rate 82 12/13/17 13:39 Respiratory Rate 20 12/13/17 13:39 Blood Pressure 138/62 12/13/17 13:39 O2 Sat by Pulse Oximetry (%) 97 12/13/17 09:00 Constitutional: Yes: Well Nourished, No Distress, Calm Gastrointestinal: Yes: Soft. No: Distention, Tenderness Neurological: Yes: Alert, Oriented Labs: CBC, BMP 12/13/17 06:00 12/13/17 06:00 INR, PTT INR 1.02 (0.82-1.09) 12/11/17 14:23 Laboratory Last Values WBC 7.9 K/mm3 (4.0-10.0) 12/13/17 06:00 RBC 4.48 M/mm3 (3.60-5.2) 12/13/17 06:00 Hgb 13.0 GM/dL (10.7-15.3) 12/13/17 06:00 Hct 39.3 % (32.4-45.2) 12/13/17 06:00 MCV 87.8 fl (80-96) 12/13/17 06:00 MCH 28.9 pg (25.7-33.7) 12/13/17 06:00 MCHC 32.9 g/dl (32.0-36.0) 12/13/17 06:00 RDW 15.6 % (11.6-15.6) 12/13/17 06:00 Plt Count 325 K/MM3 (134-434) 12/13/17 06:00 MPV 7.7 fl (7.5-11.1) 12/13/17 06:00 Neutrophils % 51.6 % (42.8-82.8) 12/13/17 06:00 Lymphocytes % 34.0 % (8-40) D 12/13/17 06:00 Monocytes % 7.1 % (3.8-10.2) 12/13/17 06:00 Eosinophils % 6.5 % (0-4.5) H 12/13/17 06:00 Basophils % 0.8 % (0-2.0) 12/13/17 06:00 Nucleated RBC % 0 % (0-0) 12/13/17 06:00 PT with INR 11.50 SEC (9.7-13.0) 12/11/17 14:23 INR 1.02 (0.82-1.09) 12/11/17 14:23 Sodium 142 mmol/L (136-145) 12/13/17 06:00 Potassium 4.4 mmol/L (3.5-5.1) 12/13/17 06:00 Chloride 105 mmol/L (98-107) 12/13/17 06:00 Carbon Dioxide 30 mmol/L (21-32) 12/13/17 06:00 Anion Gap 7 (8-16) L 12/13/17 06:00 BUN 12 mg/dL (7-18) 12/13/17 06:00 Creatinine 0.6 mg/dL (0.55-1.02) 12/13/17 06:00 Creat Clearance w eGFR > 60 (>60) 12/13/17 06:00 POC Glucometer 102 UNITS (80-120) 12/13/17 11:34 Random Glucose 121 mg/dL (74-106) H 12/13/17 06:00 Calcium 9.0 mg/dL (8.5-10.1) 12/13/17 06:00 Phosphorus 3.4 mg/dL (2.5-4.9) 12/12/17 08:12 Magnesium 2.2 mg/dL (1.8-2.4) 12/12/17 08:12 Total Bilirubin 0.4 mg/dL (0.2-1.0) D 12/13/17 06:00 AST 10 U/L (15-37) L 12/13/17 06:00 ALT 13 U/L (12-78) 12/13/17 06:00 Alkaline Phosphatase 86 U/L (45-117) 12/13/17 06:00 C-Reactive Protein 0.7 MG/DL (0.00-0.3) H 12/12/17 08:12 Total Protein 7.1 g/dl (6.4-8.2) 12/13/17 06:00 Albumin 3.4 g/dl (3.4-5.0) 12/13/17 06:00 Urine Color Ltyellow 12/11/17 14:15 Urine Appearance Slcloudy 12/11/17 14:15 Urine pH 6.0 (5.0-8.0) 12/11/17 14:15 Ur Specific [place] 1.013 (1.001-1.035) 12/11/17 14:15 Urine Protein Negative (NEGATIVE) 12/11/17 14:15 Urine Glucose (UA) Negative (NEGATIVE) 12/11/17 14:15 Urine Ketones Negative (NEGATIVE) 12/11/17 14:15 Urine Blood Negative (NEGATIVE) 12/11/17 14:15 Urine Nitrite Positive (NEGATIVE) 12/11/17 14:15 Urine Bilirubin Negative (<2.0 mg/dL) 12/11/17 14:15 Urine Urobilinogen Negative mg/dL (0.2-1.0) 12/11/17 14:15 Ur Leukocyte Esterase 3+ (NEGATIVE) H 12/11/17 14:15 Urine WBC (Auto) 59 /hpf (3-5) 12/11/17 14:15 Urine RBC (Auto) 4 /hpf (0-3) 12/11/17 14:15 Ur Epithelial Cells Rare /HPF (FEW) 12/11/17 14:15 Urine Bacteria Many /hpf (NONE SEEN) 12/11/17 14:15 Urine Mucus Rare 12/11/17 14:15 Problem List - Problems (1) Suprapubic pain Code(s): R10.2 - PELVIC AND PERINEAL PAIN (2) History of diverticulitis Code(s): Z87.19 - PERSONAL HISTORY OF OTHER DISEASES OF THE DIGESTIVE SYSTEM (3) History of diverticular abscess of colon Code(s): Z87.19 - PERSONAL HISTORY OF OTHER DISEASES OF THE DIGESTIVE SYSTEM (4) UTI (urinary tract infection) Code(s): N39.0 - URINARY TRACT INFECTION, SITE NOT SPECIFIED Qualifiers: Urinary tract infection type: acute cystitis Hematuria presence: without hematuria Qualified Code(s): N30.00 - Acute cystitis without hematuria Assessment/Plan Continue current management as per primary care, infectious disease. Low- fat diet as tolerated
[2017-12-13] MEDS ORDERED: PT OWN MED DRAWER 7, Y5N ONE (20:37)
[2017-12-13] MEDS: ERTAPENEM SODIUM 1 GM in SODIUM CHLORIDE 50 ML IVPB SCH (22:42)
[2017-12-14] MEDS: INSULIN SLIDING SCALE (NOVOLOG) 1 VIAL SQ SCH ×4 (06:28→23:13)
--- NOTE | 2017-12-14 07:55 | PN ---
Progress Note, Physician Chief Complaint: ID 77 year old female with suprapubic pain and UTI NO fever or other complaints ERTEPENEM Day 2 - Current Medication List Current Medications: Active Medications Acetaminophen (Tylenol -) 650 mg PO Q6H PRN PRN Reason: PAIN LEVEL 1-5 OR FEVER Heparin Sodium (Porcine) (Heparin -) 5,000 unit SQ BID [facility] Last Admin: 12/13/17 22:42 Dose: 5,000 unit Ertapenem 1 gm/ Sodium (Chloride) 50 mls @ 50 mls/hr IVPB HS [facility] Last Admin: 12/13/17 22:42 Dose: 50 mls/hr Insulin Aspart (Novolog Vial Sliding Scale -) 1 vial SQ HS [facility]; Protocol Last Admin: 12/13/17 22:42 Dose: Not Given Insulin Aspart (Novolog Vial Sliding Scale -) 1 vial SQ TIDAC [facility]; Protocol Last Admin: 12/14/17 06:28 Dose: Not Given Lactobacillus Acidophilus (Bacid -) 1 tab PO DAILY [facility] Last Admin: 12/13/17 10:38 Dose: 1 tab Pantoprazole Sodium (Protonix -) 40 mg PO DAILY [facility] Last Admin: 12/13/17 10:38 Dose: 40 mg Rosuvastatin Calcium (Crestor -) 5 mg PO DAILY [facility] Last Admin: 12/13/17 10:38 Dose: 5 mg - Objective Vital Signs: Vital Signs Temperature 98.1 F 12/14/17 05:45 Pulse Rate 77 12/14/17 05:45 Respiratory Rate 20 12/14/17 05:45 Blood Pressure 124/62 12/14/17 05:45 O2 Sat by Pulse Oximetry (%) 100 12/13/17 21:00 Constitutional: Yes: Well Nourished, No Distress Eyes: Yes: WNL, Conjunctiva Clear HENT: Yes: WNL, Atraumatic Neck: Yes: WNL, Supple Cardiovascular: Yes: Regular Rate and Rhythm, S1, S2. No: Murmur Respiratory: Yes: WNL, Regular, CTA Bilaterally Gastrointestinal: Yes: WNL, Normal Bowel Sounds, Soft, Tenderness, Other ( suprapubic pain). No: Tenderness, Rebound Edema: No Labs: CBC, BMP 12/13/17 06:00 12/13/17 06:00 INR, PTT INR 1.02 (0.82-1.09) 12/11/17 14:23 Assessment/Plan Microbiology 12/11/17 14:15 Urine - Urine Clean Catch Urine Culture - Final Escherichia Coli Esbl [employer] Laboratory Tests 12/11/17 12/13/17 12/13/17 14:15 06:00 06:00 WBC 7.9 Hgb 13.0 Plt Count 325 BUN 12 Creatinine 0.6 Urine Bacteria Many Assessment UTI with multidrug resistant organism ESBL Plan I would like to see her symptoms a bit better before we sent her home Perhaps tomorrow we could switch to nitrofurantoin for duration of therapy say 1 week po Angelika SCHUMACHER
[2017-12-14] MEDS: PANTOPRAZOLE 40 MG TABLET (FP) PO SCH (09:45)
[2017-12-14] MEDS: HEPARIN NA (PORCINE) 5,000 UNITS/ML 1ML VIAL SQ SCH ×2 (09:45→23:13)
[2017-12-14] MEDS: LACTOBACILLUS ACIDOPHILUS 1 TABLET PO SCH (09:45)
[2017-12-14] MEDS: ROSUVASTATIN CA 5 MG TABLET (FP) PO SCH (09:45)
--- NOTE | 2017-12-14 10:56 | PN ---
Progress Note, Physician Chief Complaint: Complicated UTI History of Present Illness: NAD,, lying in bed c/o of supra pubic pain seen by ID On IV abx - Current Medication List Current Medications: Active Medications Acetaminophen (Tylenol -) 650 mg PO Q6H PRN PRN Reason: PAIN LEVEL 1-5 OR FEVER Heparin Sodium (Porcine) (Heparin -) 5,000 unit SQ BID [facility] Last Admin: 12/14/17 09:45 Dose: 5,000 unit Ertapenem 1 gm/ Sodium (Chloride) 50 mls @ 50 mls/hr IVPB HS [facility] Last Admin: 12/13/17 22:42 Dose: 50 mls/hr Insulin Aspart (Novolog Vial Sliding Scale -) 1 vial SQ HS [facility]; Protocol Last Admin: 12/13/17 22:42 Dose: Not Given Insulin Aspart (Novolog Vial Sliding Scale -) 1 vial SQ TIDAC [facility]; Protocol Last Admin: 12/14/17 06:28 Dose: Not Given Lactobacillus Acidophilus (Bacid -) 1 tab PO DAILY [facility] Last Admin: 12/14/17 09:45 Dose: 1 tab Pantoprazole Sodium (Protonix -) 40 mg PO DAILY [facility] Last Admin: 12/14/17 09:45 Dose: 40 mg Rosuvastatin Calcium (Crestor -) 5 mg PO DAILY [facility] Last Admin: 12/14/17 09:45 Dose: 5 mg - Objective Vital Signs: Vital Signs Temperature 97.9 F 12/14/17 09:53 Pulse Rate 85 12/14/17 09:53 Respiratory Rate 20 12/14/17 09:53 Blood Pressure 145/72 12/14/17 09:53 O2 Sat by Pulse Oximetry (%) 100 12/13/17 21:00 Labs: CBC, BMP 12/13/17 06:00 12/13/17 06:00 INR, PTT INR 1.02 (0.82-1.09) 12/11/17 14:23 Problem List - Problems (1) History of ESBL E. coli infection Code(s): Z86.19 - PERSONAL HISTORY OF OTHER INFECTIOUS AND PARASITIC DISEASES (2) History of diverticular abscess of colon Code(s): Z87.19 - PERSONAL HISTORY OF OTHER DISEASES OF THE DIGESTIVE SYSTEM (3) Diabetes Code(s): E11.9 - TYPE 2 DIABETES MELLITUS WITHOUT COMPLICATIONS
--- NOTE | 2017-12-14 11:32 | PN ---
Progress Note, Physician History of Present Illness: Still has mild suprapubic pain. Reports no nausea, vomiting, abdominal pain , diarrhea. Tolerating current diet. - Current Medication List Current Medications: Active Medications Acetaminophen (Tylenol -) 650 mg PO Q6H PRN PRN Reason: PAIN LEVEL 1-5 OR FEVER Heparin Sodium (Porcine) (Heparin -) 5,000 unit SQ BID [facility] Last Admin: 12/14/17 09:45 Dose: 5,000 unit Ertapenem 1 gm/ Sodium (Chloride) 50 mls @ 50 mls/hr IVPB HS [facility] Last Admin: 12/13/17 22:42 Dose: 50 mls/hr Insulin Aspart (Novolog Vial Sliding Scale -) 1 vial SQ HS [facility]; Protocol Last Admin: 12/13/17 22:42 Dose: Not Given Insulin Aspart (Novolog Vial Sliding Scale -) 1 vial SQ TIDAC [facility]; Protocol Last Admin: 12/14/17 06:28 Dose: Not Given Lactobacillus Acidophilus (Bacid -) 1 tab PO DAILY [facility] Last Admin: 12/14/17 09:45 Dose: 1 tab Pantoprazole Sodium (Protonix -) 40 mg PO DAILY [facility] Last Admin: 12/14/17 09:45 Dose: 40 mg Rosuvastatin Calcium (Crestor -) 5 mg PO DAILY [facility] Last Admin: 12/14/17 09:45 Dose: 5 mg - Objective Vital Signs: Vital Signs Temperature 97.9 F 12/14/17 09:53 Pulse Rate 85 12/14/17 09:53 Respiratory Rate 20 12/14/17 09:53 Blood Pressure 145/72 12/14/17 09:53 O2 Sat by Pulse Oximetry (%) 100 12/13/17 21:00 Constitutional: Yes: No Distress, Calm Gastrointestinal: Yes: Normal Bowel Sounds, Soft. No: Tenderness Labs: CBC, BMP 12/13/17 06:00 12/13/17 06:00 INR, PTT INR 1.02 (0.82-1.09) 12/11/17 14:23 Problem List - Problems (1) Suprapubic pain Code(s): R10.2 - PELVIC AND PERINEAL PAIN (2) History of diverticulitis Code(s): Z87.19 - PERSONAL HISTORY OF OTHER DISEASES OF THE DIGESTIVE SYSTEM (3) History of diverticular abscess of colon Code(s): Z87.19 - PERSONAL HISTORY OF OTHER DISEASES OF THE DIGESTIVE SYSTEM (4) UTI (urinary tract infection) Code(s): N39.0 - URINARY TRACT INFECTION, SITE NOT SPECIFIED Qualifiers: Urinary tract infection type: acute cystitis Hematuria presence: without hematuria Qualified Code(s): N30.00 - Acute cystitis without hematuria Assessment/Plan Continue current management as per primary care, infectious disease. Low- fat diet as tolerated
[2017-12-14] MEDS: ERTAPENEM SODIUM 1 GM in SODIUM CHLORIDE 50 ML IVPB SCH (23:13)
[2017-12-15] MEDS: INSULIN SLIDING SCALE (NOVOLOG) 1 VIAL SQ SCH ×3 (06:44→17:24)
[2017-12-15] MEDS: PANTOPRAZOLE 40 MG TABLET (FP) PO SCH (10:01)
[2017-12-15] MEDS: LACTOBACILLUS ACIDOPHILUS 1 TABLET PO SCH (10:01)
[2017-12-15] MEDS: HEPARIN NA (PORCINE) 5,000 UNITS/ML 1ML VIAL SQ SCH (10:01)
[2017-12-15] MEDS: ROSUVASTATIN CA 5 MG TABLET (FP) PO SCH (10:02)
--- NOTE | 2017-12-15 10:11 | PN ---
Progress Note (short form) - Note Progress Note: day #5 ertapenem dyuria and suprapubic pain resolved Vital Signs Period Temp Pulse Resp BP Sys/Paulson Pulse Ox Last 24 Hr 98.0 F-98.8 F 71-86 18-20 110-127/53-70 100 cor-rrr lungs clear abd soft,nt no suprapubic pain ext no edema CBC, BMP 12/13/17 06:00 12/13/17 06:00 Microbiology 12/11/17 14:15 Urine - Urine Clean Catch Urine Culture - Final Escherichia Coli Esbl Managing Member a/p resolving UTI- day #5 abx ecoli esbl can switch to po nitrofurantoin for one week Problem List - Problems (1) UTI (urinary tract infection) Code(s): N39.0 - URINARY TRACT INFECTION, SITE NOT SPECIFIED Qualifiers: Urinary tract infection type: acute cystitis Hematuria presence: without hematuria Qualified Code(s): N30.00 - Acute cystitis without hematuria (2) History of diverticular abscess of colon Code(s): Z87.19 - PERSONAL HISTORY OF OTHER DISEASES OF THE DIGESTIVE SYSTEM (3) History of ESBL E. coli infection Code(s): Z86.19 - PERSONAL HISTORY OF OTHER INFECTIOUS AND PARASITIC DISEASES
--- NOTE | 2017-12-15 12:03 | DS ---
Physical Exam: SUBJECTIVE: Patient seen and examined OBJECTIVE: Vital Signs Period Temp Pulse Resp BP Sys/Paulson Pulse Ox Last 24 Hr 98.0 F-98.8 F 71-86 18-20 110-131/53-70 100 PHYSICAL EXAM GENERAL: The patient is awake, alert, and fully oriented, in no acute distress. HEAD: Normal with no signs of trauma. EYES: PERRL, extraocular movements intact, sclera anicteric, conjunctiva clear. ENT: Ears normal, nares patent, oropharynx clear without exudates, moist mucous membranes. NECK: Trachea midline, full range of motion, supple. LUNGS: Breath sounds equal, clear to auscultation bilaterally, no wheezes, no crackles, no accessory muscle use. HEART: Regular rate and rhythm, S1, S2 without murmur, rub or gallop. ABDOMEN: Soft, nontender, nondistended, normoactive bowel sounds, no guarding, no rebound, no hepatosplenomegaly, no masses. EXTREMITIES: 2+ pulses, warm, well-perfused, no edema. NEUROLOGICAL: Cranial nerves II through XII grossly intact. Normal speech, gait not observed. PSYCH: Normal mood, normal affect. SKIN: Warm, dry, normal turgor, no rashes or lesions noted. LABS Laboratory Results - last 24 hr 12/14/17 12/14/17 12/14/17 11:39 16:58 23:12 POC Glucometer 151 150 122 12/15/17 12/15/17 06:42 11:34 POC Glucometer 114 97 HOSPITAL COURSE: Date of Admission:12/11/17 Date of Discharge: 12/15/17 Minutes to complete discharge: 30 Discharge Summary Reason For Visit: URINARY TRACT INFECTION HISTORY OF ESBL E COLI INF Current Active Problems Abdominal fluid collection (Acute) Diabetes (Acute) History of ESBL E. coli infection (Acute) History of diverticular abscess of colon (Acute) History of diverticulitis (Acute) Suprapubic pain (Acute) UTI (urinary tract infection) (Acute) Condition: Good - Instructions Diet, Activity, Other Instructions: You were treated in the hospital for a resistant urinary tract infection caused by ESBL E. coli. You were treated with IV antibiotics (Invanz) and are being discharged to complete the course of antibiotics with oral nitrofurantoin. You may resume your usual activity and diet. Please schedule an appointment with your PCP, Dr. Dumont, next week. Referrals: Godfrey Dumont MD [Primary Care Provider] - 1 Week Disposition: HOME - Home Medications Comprehensive Discharge Medication List: Ambulatory Orders Rosuvastatin [Crestor -] 5 mg PO DAILY 11/17/17 Acetaminophen [Tylenol .Regular Strength -] 650 mg PO Q6H PRN tablet 11/23/17 Lactobacillus Acidophilus [Bacid -] 1 tab PO DAILY tab 11/23/17 Metformin HCl [Glucophage] 500 mg PO ACBK #20 tablet MDD 1 11/27/17 Pantoprazole Sodium [Protonix -] 40 mg PO DAILY tablet.ec 11/27/17 Nitrofurantoin Monohyd/M-Cryst [Macrobid -] 100 mg PO BID #14 capsule 12/15/17
[2017-12-15] MEDS ORDERED: ERTAPENEM SODIUM 1 GM in SODIUM CHLORIDE 100 ML IVPB ONE (15:30)
[2017-12-15] MEDS ORDERED: ERTAPENEM SODIUM 1 GM in SODIUM CHLORIDE 50 ML IVPB ONE (15:30)
[2017-12-15 18:40] VITALS: BP 124/61; PULSE 77; TEMP 98
== END 2017-12-15 20:59 | disposition home or self-care (01) | DRG 690 ==
LOC: JER 13:48 → JERBED 21:18 → J7W 12-12 21:34
PROVIDERS: ADMIT Family Medicine; ATTEND Family Medicine
DX: N39.0 Urinary tract infection, site not specified (principal); N73.0 Acute parametritis and pelvic cellulitis; E11.9 Type 2 diabetes mellitus without complications; E78.5 Hyperlipidemia, unspecified; Z87.891 Personal history of nicotine dependence; Z79.84 Long term (current) use of oral hypoglycemic drugs; M54.5 Low back pain
CPT/HCPCS: 36415; 71046-TC-FY; 74177-TC; 80048; 80053; 81003; 81015; 82962; 83735; 84100; 85025; 85610; 86140; 87086; 87186; 93005; 93010; 97116-GP; 97161-GP; 99284-25; J1644; J7030

== ENCOUNTER 2018-04-24 12:51 | Emergency (ER) | payer OTHER ==
[2018-04-24 13:10] VITALS: BP 125/61; PULSE 70; TEMP 98.1; BMI 27.3
--- NOTE | 2018-04-24 13:18 | PDOC ---
History of Present Illness - General Chief Complaint: Back Pain Stated Complaint: LOWER BACK PAIN Time Seen by Provider: 04/24/18 13:13 - History of Present Illness Initial Comments: 04/24/18 17:45 Chief complaint: Low back pain History of present illness: Patient was herniated disc and chronic low back pain complains of exacerbation for several days. Admits to sitting a lot but otherwise has been no trauma or other injury. Review of systems: Pain is confined to the low back, lumbosacral area bilaterally. No radiation. No distal numbness tingling pain or weakness. No bowel or bladder symptoms. No saddle anesthesia Past medical history: Herniated lumbar disc, chronic back pain with frequent exacerbations, [id number] diabetes on metformin Social/family history reviewed and noncontributory Physical exam: The patient is cheerful in no acute distress fully ambulatory alert and oriented 3. Afebrile, vital signs normal HEENT clear Neck supple without bruit mass or nodes Chest clear CV regular without murmur rub or gallop Abdomen benign Neurological C2 to 12 intact. Strength full and symmetric. No focal sensory or motor deficits. Gait stable and unimpaired LS spine with preservation of normal lumbar lordosis. No point tenderness of the vertebral bodies. No deformity. No inflammatory changes. Straight leg negative. No distal sensory or motor deficits Impression: Exacerbation of chronic low back pain Plan: Medication was administered and the patient felt much better. Pain was almost completely resolved and she was fully ambulatory without limitation. Prescriptions were given and the patient was instructed to follow-up with her primary physician and referred to a Back Specialist if necessary. Past History - Past Medical History Allergies/Adverse Reactions: Allergies Allergy/AdvReac Type Severity Reaction Status Date / Time No Known Allergies Allergy Verified 12/11/17 14:01 Home Medications: Ambulatory Orders Metformin HCl [Glucophage] 500 mg PO ACBK #20 tablet MDD 1 11/27/17 Diclofenac Sodium [Voltaren -] 1 - 2 tab PO BID PRN #20 tablet. 04/24/18 hydrOXYzine HCL [Atarax -] 10 mg PO BID PRN #20 tablet 04/24/18 COPD: No Diabetes: Yes GI Disorders: Yes (DIVERTICULITIS WITH ABSCESS AND DRAINAGE) Hypercholesterolemia: Yes - Suicide/Smoking/Psychosocial Hx Smoking History: Never smoked Have you smoked in the past 12 months: No If you are a former smoker, when did you quit?: 3 yrs ago Information on smoking cessation initiated: No Hx Alcohol Use: No Drug/Substance Use Hx: No Substance Use Type: None *Physical Exam - Vital Signs Last Vital Signs Temp Pulse Resp BP Pulse Ox 98.1 F 70 20 125/61 97 04/24/18 12:51 04/24/18 12:51 04/24/18 12:51 04/24/18 12:51 04/24/18 12:51 ED Treatment Course - LABORATORY CBC & Chemistry Diagram: 04/24/18 14:25 04/24/18 14:25 Medical Decision Making - Medical Decision Making 04/24/18 15:11 EKG: Normal sinus rhythm 73/m normal axes and intervals no ST-T wave changes normal EKG Labs without significant abnormalities. CBC and chemistries, cardiac enzymes included. *DC/Admit/Observation/Transfer Diagnosis at time of Disposition: Low back pain Qualifiers: Chronicity: chronic Back pain laterality: bilateral Sciatica presence: without sciatica Qualified Code(s): M54.5 - Low back pain - Discharge Dispostion Disposition: HOME Condition at time of disposition: Improved Decision to Admit order: No - Prescriptions Prescriptions: Diclofenac Sodium [Voltaren -] 1 - 2 tab PO BID PRN #20 tablet.dr PRN Reason: Pain hydrOXYzine HCL [Atarax -] 10 mg PO BID PRN #20 tablet PRN Reason: pain/spasm back - Referrals Referrals: Reva Sadler MD [Primary Care Provider] - 3 days Claus Segura MD [Staff Physician] - 3 days - Patient Instructions Printed Discharge Instructions: DI for Low Back Pain Additional Instructions: Avoid sitting. Use heat. Follow-up primary physician and Back Specialist if no improvement. - Post Discharge Activity
[2018-04-24] MEDS ORDERED: KETOROLAC TROMETHAMINE 60 MG/2 ML VIAL IM ONE (13:56)
[2018-04-24] MEDS ORDERED: hydrOXYzine HCL 10 MG TABLET PO ONE (13:57)
[2018-04-24] MEDS ORDERED: KETOROLAC TROMETHAMINE 30 MG/1 ML VIAL ONE (14:35)
[2018-04-24] MEDS ORDERED: hydrOXYzine HCL 10 MG/5 ML LIQUID BULK BOTTLE ONE (14:36)
[2018-04-24 14:39] LABS: URINE APPEARANCE Clear; URINE BILIRUBIN 1+ (NEGATIVE); URINE COLOR Brown; URINE GLUCOSE (UA) Negative (NEGATIVE); URINE KETONE Trace (NEGATIVE); URINE LEUK ESTERASE Negative (NEGATIVE); URINE NITRITE Negative (NEGATIVE); URINE PROTEIN 2+ (NEGATIVE); URINE UROBILINOGEN 0.2 (0.2-1.0)
[2018-04-24 14:42] LABS: BASO % 0.3 % (0-2.0); EOS % 10.9 % (0-4.5); HEMATOCRIT 37.5 % (32.4-45.2); HEMOGLOBIN 12.4 GM/dl (10.7-15.3); LYMPH % 30.7 % (8-40); MCH 28.9 pg (25.7-33.7); MEAN CELL VOLUME 87.8 fl (80-96); MEAN PLT VOLUME 7.5 fl (7.5-11.1); MONO % 6.9 % (3.8-10.2); NEUT % 51.2 % (42.8-82.8); PLATELET COUNT 366 K/MM3 (134-434); RBC 4.28 M/mm3 (3.60-5.2); RDW 12.8 % (11.6-15.6)
[2018-04-24 14:49] LABS: URINE RBC 0-3 /hpf (0-3)
[2018-04-24 14:50] LABS: EPI CELLS FEW /HPF; URINE MUCUS MANY
[2018-04-24 14:51] LABS: ALBUMIN 3.6 g/dl (3.5-5.0); ALK PHOS 83 U/L (32-92); ANION GAP 6 MMOL/L (8-16); BILIRUBIN,TOTAL 0.2 mg/dl (0.2-1.0); BLOOD UREA NITROGEN 14 mg/dl (7-18); CALCIUM 8.5 mg/dl (8.4-10.2); CHLORIDE 104 mmol/L (98-107); CO2 26 mmol/L (22-28); CREATININE 0.7 mg/dl (0.6-1.3); GLUCOSE,RANDOM 122 mg/dl (74-106); POTASSIUM 3.8 mmol/L (3.5-5.1); SGOT/AST 16 U/L (10-42); SGPT/ALT 11 U/L (10-40); SODIUM 136 mmol/L (136-145)
--- NOTE | 2018-04-25 22:16 | EKG ---
Test Reason : Blood Pressure : / mmHG Vent. Rate : 073 BPM Atrial Rate : 073 BPM P-R Int : 140 ms QRS Dur : 076 ms QT Int : 422 ms P-R-T Axes : 059 021 052 degrees QTc Int : 464 ms NORMAL SINUS RHYTHM NORMAL ECG WHEN COMPARED WITH ECG OF 12-DEC-2017 00:43, NO SIGNIFICANT CHANGE WAS FOUND Confirmed by DEBBIE MEEHAN MD ([id number]) on 04/25/2018 10:16:06 PM Referred By: CHRISTOPHER CERVANTES Confirmed By:DEBBIE MEEHAN MD
== END 2018-04-24 15:45 | disposition home or self-care (01) ==
LOC: SUPCPDRO 12:51 → FER 12:51
PROC: 3E0233Z Introduction of Anti-inflammatory into Muscle, Percutaneous Approach (ICD-10-PCS; principal; 2018-04-24)
DX: M54.5 Low back pain (principal); G89.29 Other chronic pain
CPT/HCPCS: 36415; 80053; 81003; 81015; 82550; 84484; 85025; 93005; 96372; 99282-25

== ENCOUNTER 2018-07-14 11:42 | Emergency (ER) | payer OTHER ==
[2018-07-14 11:48] VITALS: BMI 31.4
--- NOTE | 2018-07-14 12:38 | PDOC ---
History of Present Illness - General Chief Complaint: SIRS, Suspected/Possible Stated Complaint: ABD PAIN,FEVER Time Seen by Provider: 07/14/18 12:16 History Source: Family (daughter ) Exam Limitations: Language Barrier - History of Present Illness Initial Comments: 07/14/18 12:35 Patient is a 78 year old female with a PMHx of diverticulitis, constipation, NIDDMII, HLD, Chronic back pain who presented to the emergency department for fevers of Tmax 101.0 last night and worsening left mid abdominal cellulites. According to the patients family, she initially had a cyst there that "popped" and then turned into cellulites. She went to her PCP, Dr. Dumont, around that time and referred her to a surgeon, Dr. Tavarez. Dr. Tavarez gave her two weeks worth of antibiotics for Cephalexin 500mg Q8H, which she completed last week. She had a follow up appointment with Dr. Tavarez last week, (07/11/18) and decided to do ambulatory I&D on Sunday (07/17/18). However, patient reports to have continuous tenderness and fevers, despite abx use, which prompted this hospital visit. Patient took Tylenol last night and has not had fevers today. Patient denies any drainage or bleeding in the area. Patent denies any trauma or injury to that area Patient denies any shortness of breath, palpitation, chest pain, headaches, dizziness, nausea, vomiting, acute vision changes, dysuria, hematuria, melena, hematocheziam hematemesis. PCP: Dr. Dumont Surgeon: Dr. Tavarez PMHx: HLD NIDDMII (Off medications, use to be on Metformin) Diverticulitis (Currently on Metronidazole) Constipation PSHx: Denies Social Hx: Denies alcohol use Denies drug use Former smoker. Quit 3 years ago. 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 Born in [facility] Family Hx: Mother- NIDDMII Allergies: Denies Past History - Past Medical History Allergies/Adverse Reactions: Allergies Allergy/AdvReac Type Severity Reaction Status Date / Time No Known Allergies Allergy Verified 07/14/18 11:48 Home Medications: Ambulatory Orders Clindamycin [Cleocin -] 150 mg PO Q8H 7 Days #63 capsule 07/14/18 Metronidazole 250 mg PO TID 07/14/18 COPD: No Diabetes: Yes GI Disorders: Yes (DIVERTICULITIS WITH ABSCESS AND DRAINAGE) Hypercholesterolemia: Yes - Suicide/Smoking/Psychosocial Hx Smoking History: Never smoked Have you smoked in the past 12 months: No If you are a former smoker, when did you quit?: 3 yrs ago Hx Alcohol Use: No Drug/Substance Use Hx: No Substance Use Type: None Review of Systems - Review of Systems Able to Perform ROS?: Yes Constitutional: Yes: Fever. No: Chills, Diaphoresis, Night Sweats HEENTM: No: Nose Congestion Respiratory: No: Cough, Shortness of Breath, SOB at Rest, Wheezing, Productive cough, Hemoptysis Cardiac (ROS): No: Chest Pain, Edema, Lightheadedness, Palpitations ABD/GI: Yes: Constipated. No: Abdominal Distended, Diarrhea, Nausea, Poor Appetite, Vomiting, Abdominal cramping : No: Burning, Dysuria, Frequency, Flank Pain Musculoskeletal: No: Back Pain, Joint Pain Integumentary: Yes: Erythema (left mid-abdominal celluitis ) Neurological: No: Headache, Numbness Psychiatric: No: Anxiety, Depression Endocrine: No: Flushing *Physical Exam - Vital Signs Last Vital Signs Temp Pulse Resp BP Pulse Ox 97.8 F 97 H 18 125/55 L 96 07/14/18 11:45 07/14/18 11:45 07/14/18 11:45 07/14/18 11:45 07/14/18 11:45 - Physical Exam General Appearance: Yes: Other (Awake, Alert, oriented x3, non-toxic appearing and in no acute distress ) HEENT: positive: EOMI, LAKHWINDER, Normal ENT Inspection, Pharynx Normal Neck: positive: Lymphadenopathy (L) (clavicular moveable node ) Respiratory/Chest: positive: Lungs Clear, Normal Breath Sounds. negative: Crackles, Rales, Rhonchi, Stridor Cardiovascular: positive: Regular Rhythm, S1, S2, Tachycardia. negative: Edema , JVD Vascular Pulses: Carotid (R): 2+, Carotid (L): 2+, Dorsalis-Pedis (R): 2+, Doralis-Pedis (L): 2+ Gastrointestinal/Abdominal: positive: Other (Soft, nontender, nondistended, normactive bowel sounds, No organomegaly ) Lymphatic: negative: Adenopathy, Tenderness Musculoskeletal: positive: Normal Inspection. negative: CVA Tenderness, CVA Tenderness (R), CVA Tenderness (L), Decreased Range of Motion, Muscle Spasm, Vertebral Tenderness Extremity: positive: Normal Capillary Refill, Normal Inspection, Normal Range of Motion. negative: Pedal Edema, Swelling, Calf Tenderness, Erythema, Inflammation Integumentary: positive: Other (2x4cm indurated, erythemtous abscess with overlying cellulitis in the Left upper quadrant of the abdomen. (-) no lymphangitic spread, (-) drainage) Moderate Sedation - Procedure Monitoring Vital Signs: Procedure Monitoring Vital Signs Temperature 97.8 F 07/14/18 11:45 Pulse Rate 97 H 07/14/18 11:45 Respiratory Rate 18 07/14/18 11:45 Blood Pressure 125/55 L 07/14/18 11:45 O2 Sat by Pulse Oximetry (%) 96 07/14/18 11:45 Procedures - Bedside Ultrasound Bedside Ultrasound: Skin (LUQ of abdomen) ED Treatment Course - LABORATORY CBC & Chemistry Diagram: 07/14/18 13:30 07/14/18 13:30 Medical Decision Making - Medical Decision Making 07/14/18 13:19 Patient is a 78 year old female with a PMHx of HLD, constipation, Diverticulitis , NIDDMII who presented for fevers overnight and worsening LUQ cellulitis with tenderness. Patient follows Dr. Tavarez and is scheduled for an I&D next week (07/17). Will need to rule out Abscess, however, patient is nontoxic appearing and in no acute distress. She took Tylenol last night and has not had fevers this morning. -U/S done at bedside, which showed 2.2x1.5cm abscess in the Left abdominal wall -CBC, CMP, and INR/PTT ordered -Call made out to Dr. Tavarez. -Will likely send home with Antibiotics but will decide once we reach Dr. Tavarez 07/14/18 14:16 -Labs unremarkable -Called Dr. Tavarez twice and left voicemail -Patient still reports some pain but remains non-toxic -Will likely prescribe Clindamycin 07/14/18 14:35 -Spoke to Dr. Tavarez. Agrees with sending patient home with antibiotics and to return Sunday (07/17/18) for scheduled I&D. 07/14/18 14:50 -Sent Clindamycin 450mg TID for 7 days to patients pharmacy -Explained to the family the importance of medication compliance -Will need to return to scheduled I&D on Sunday (07/17/18) -Will discharge home *DC/Admit/Observation/Transfer Diagnosis at time of Disposition: Cellulitis of abdominal wall - Discharge Dispostion Disposition: HOME Condition at time of disposition: Stable Decision to Admit order: No - Prescriptions Prescriptions: Clindamycin [Cleocin -] 150 mg PO Q8H 7 Days #63 capsule - Referrals Referrals: Godfrey Dumont MD [Primary Care Provider] - Federico Tavarez MD [Staff Physician] - - Patient Instructions Additional Instructions: -You were seen here for cellulitis in the abdomen and you will be sent home with antibiotics. 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 Tavarez -Please follow up with your primary care doctor within a week. -If you begin experiencing persistent fevers >102.0, chest pain, shortness of breath or severe diarrhea, return to the emergency department. - Post Discharge Activity
--- NOTE | 2018-07-14 12:39 | PDOC ---
Attending Attestation - HPI HPI: 07/14/18 13:01 The patient is a 78 year old female with a significant past medical history of diverticulitis with abscess, constipation, NIDDMII, HLD, HTN, and Chronic back pain who presents to the emergency department for fevers (Tmax 101F) and increasing left mid abdominal cellulitis despite two weeks worth of antibiotics she completed last week. The patient denies chest pain, shortness of breath, headache and dizziness. The patient denies fever, chills, nausea, vomit, diarrhea and constipation. The patient denies dysuria, frequency, urgency and hematuria. Surgeon: Dr. Federico Tavarez - Physicial Exam PE: 07/14/18 13:02 Constitutional: Awake, alert, oriented. No acute distress. Head: Normocephalic. Atraumatic Eyes: PERRL. EOMI. Conjunctivae are not pale. ENT: Mucous membranes are moist and intact. Posterior pharynx without exudates or erythema. Uvula midline. Neck: Supple. Full ROM. No lymphadenopathy. Cardiovascular: Regular rate. Regular rhythm. S1, S2 regular. Distal pulses are 2+ and symmetric. Pulmonary/Chest: No evidence of respiratory distress. Clear to auscultation bilaterally No wheezing, rales or rhonchi. Abdominal: Soft and non-distended. There is no tenderness. No rebound, guarding or rigidity. No organomegaly. No palpable masses. Good bowel sounds. Back: No CVA tenderness. Musculoskeletal: No edema. No cyanosis. No clubbing. Full range of motion in all extremities. Nocalf tenderness. Radial/pedal pulses are intact and 2+ bilaterally Skin: Skin is warm and dry. No petechiae. No purpura. Neurological: Alert and oriented to person, place, and time. Cranial nerves II -XII are grossly intact. Normal speech. Strength is grossly symmetric. No sensory deficits. Psychiatric: Good eye contact. Normal interaction, affect and behavior. - Medical Decision Making 07/14/18 13:02 Documentation prepared by Mel Ramires, acting as medical administrative assistant for Valerie Valdez DO <Mel Ramires - Last Filed: 07/14/18 14:30> - Resident Resident Name: Susan Felix - ED Attending Attestation I have performed the following: I have examined & evaluated the patient, The case was reviewed & discussed with the resident, I agree w/resident's findings & plan, Exceptions are as noted - Medical Decision Making 07/14/18 12:39 I, Dr. Valerie Valdez, DO, attest that this document has been prepared under my direction and personally reviewed by me in its entirety. I further attest, that it accurately reflects all work, treatment, procedures and medical decision -making performed by me. 07/14/18 13:07 a/p: 78yo female with L upper abd abscess -scheduled sunday to undergo I&D with Dr. Tavarez -fever last night -has been on keflex for abscess -will send labs, will discuss with Dr. Tavarez -nontoxic in appearance -last dose of tylenol was yesterday -no fever today -2x4cm abscess with overlying cellulitis to LUQ -no lymphangitic spread 07/14/18 14:55 resident discussed the case with Dr. Tavarez WBC 10 pt is nontoxic in appearance will change abx to clinda will follow up with Dr. Tavarez on sunday as scheduled stable for dc to home <Valerie Valdez - Last Filed: 07/14/18 14:55>
[2018-07-14 13:46] LABS: BASO % 0.7 % (0-2.0); EOS % 5.4 % (0-4.5); HEMATOCRIT 35.6 % (32.4-45.2); HEMOGLOBIN 12.1 GM/dL (10.7-15.3); LYMPH % 20.8 % (8-40); MCH 28.7 pg (25.7-33.7); MCHC 34.1 g/dl (32.0-36.0); MEAN CELL VOLUME 84.1 fl (80-96); MONO % 8.4 % (3.8-10.2); NEUT % 64.7 % (42.8-82.8); PLATELET COUNT 463 K/MM3 (134-434); RBC 4.24 M/mm3 (3.60-5.2); RDW 15.1 % (11.6-15.6); WHITE BLOOD COUNT 10.8 K/mm3 (4.0-10.0)
[2018-07-14 14:11] LABS: ALBUMIN 2.9 g/dl (3.4-5.0); ALK PHOS 109 U/L (45-117); ANION GAP 8 MMOL/L (8-16); BILIRUBIN,TOTAL 0.2 mg/dL (0.2-1); BLOOD UREA NITROGEN 11 mg/dL (7-18); CALCIUM 8.9 mg/dL (8.5-10.1); CHLORIDE 101 mmol/L (98-107); CO2 28 mmol/L (21-32); CREATININE 0.7 mg/dL (0.55-1.3); GLUCOSE,RANDOM 102 mg/dL (74-106); POTASSIUM 4.2 mmol/L (3.5-5.1); SGOT/AST 15 U/L (15-37); SGPT/ALT 13 U/L (13-61); SODIUM 137 mmol/L (136-145); TOT PROT 7.2 g/dl (6.4-8.2)
[2018-07-14 14:12] LABS: INR 1.13 (0.83-1.09); PROTHROMBIN TIME (PATIENT) 13.3 SEC (9.7-13.0)
[2018-07-14 14:15] LABS: ACTIVATED PTT 31.4 SECONDS (25.2-36.5)
[2018-07-14] MEDS ORDERED: CLINDAMYCIN HCL 150 MG CAPSULE (FP) PO ONE (14:52)
[2018-07-14] MEDS ORDERED: CLINDAMYCIN HCL 150 MG CAPSULE (FP) ONE (14:58)
[2018-07-14 15:06] VITALS: BP 138/68; PULSE 84; TEMP 98.5
== END 2018-07-14 15:07 | disposition home or self-care (01) ==
LOC: JER 11:42
DX: L03.311 Cellulitis of abdominal wall (principal); K57.32 Diverticulitis of large intestine without perforation or abscess without bleeding; E11.9 Type 2 diabetes mellitus without complications; E78.5 Hyperlipidemia, unspecified; M54.9 Dorsalgia, unspecified; G89.29 Other chronic pain
CPT/HCPCS: 36415; 80053; 85025; 85610; 85730; 99283-25

== ENCOUNTER 2018-07-24 16:42 | Inpatient (IN) | payer OTHER ==
--- NOTE | 2018-07-24 16:55 | PDOC ---
Rapid Medical Evaluation Chief Complaint: Pain, Acute Time Seen by Provider: 07/24/18 16:53 Medical Evaluation: Allergies Allergy/AdvReac Type Severity Reaction Status Date / Time No Known Allergies Allergy Verified 07/24/18 16:51 07/24/18 16:53 I have performed a brief in-person evaluation of this patient. The patient presents with a chief complaint of: neck swelling Pertinent physical exam findings: firm palpable masses to bilateral neck. Known metastatic lung disease. I have ordered the following: labs The patient will proceed to the ED for further evaluation. Discharge Disposition - Diagnosis Neck mass - Referrals - Patient Instructions - Post Discharge Activity
[2018-07-24 16:56] VITALS: BMI 30.9
[2018-07-24 17:48] LABS: BASO % 0.5 % (0-2.0); HEMATOCRIT 35.2 % (32.4-45.2); HEMOGLOBIN 11.9 GM/dL (10.7-15.3); LYMPH % 18.9 % (8-40); MCH 27.9 pg (25.7-33.7); MCHC 33.8 g/dl (32.0-36.0); MEAN CELL VOLUME 82.5 fl (80-96); MEAN PLT VOLUME 6.6 fl (7.5-11.1); MONO % 7.1 % (3.8-10.2); NEUT % 71.5 % (42.8-82.8); PLATELET COUNT 580 K/MM3 (134-434); RBC 4.27 M/mm3 (3.60-5.2); RDW 14.2 % (11.6-15.6); WHITE BLOOD COUNT 11.4 K/mm3 (4.0-10.0)
[2018-07-24 18:10] LABS: INR 1.34 (0.83-1.09); PROTHROMBIN TIME (PATIENT) 15.8 SEC (9.7-13.0)
[2018-07-24 18:11] LABS: ALBUMIN 2.8 g/dl (3.4-5.0); ALK PHOS 83 U/L (45-117); ANION GAP 6 MMOL/L (8-16); BILIRUBIN,TOTAL 0.3 mg/dL (0.2-1); BLOOD UREA NITROGEN 8 mg/dL (7-18); CALCIUM 8.4 mg/dL (8.5-10.1); CHLORIDE 95 mmol/L (98-107); CO2 28 mmol/L (21-32); CREATININE 0.6 mg/dL (0.55-1.3); GLUCOSE,RANDOM 132 mg/dL (74-106); POTASSIUM 4.6 mmol/L (3.5-5.1); SGOT/AST 10 U/L (15-37); SGPT/ALT 10 U/L (13-61); SODIUM 130 mmol/L (136-145); TOT PROT 6.9 g/dl (6.4-8.2)
[2018-07-24] MEDS ORDERED: ACETAMINOPHEN 325 MG TABLET (FP) PO ONE (20:28)
[2018-07-24] MEDS ORDERED: KETOROLAC TROMETHAMINE 30 MG/1 ML VIAL IVPUSH ONE (20:28)
[2018-07-24] MEDS ORDERED: morphine CARPU-JECT 4 MG/1 ML DISP.SYRIN IVPUSH ONE (20:28)
--- NOTE | 2018-07-24 20:34 | PDOC ---
History of Present Illness - General Chief Complaint: Pain, Acute Stated Complaint: PAIN/LUMP Time Seen by Provider: 07/24/18 16:53 - History of Present Illness Initial Comments: 07/25/18 00:21 Patient is a 78 year old female with a significant past medical history of DM, diverticulitis, UTI, chronic low back pain, HLD, who presents to the ED with complaints of right shoulder pain. Patient reports experiencing constant right shoulder pain that she states has been occurring for more than 1 week. She reports experiencing associated symptoms of back pain and slight head pain. Patient reports taking tramadol for pain with minimal relief, stating it relieves the pain for a few hours before the pain returns. She reports being diagnosed with Lung Cancer x9 days on Sunday. Pt has new symptom of fever to 101F at home over past 2 days, pt is afebrile in the ER. As per patient's niece , patient has recently been taking clindamycin and flagyl after surgical excision of R abdominal wall infected cyst last week. Denies chest pain, Sob. Denies nausea, vomiting. Denies fevers, chills. Denies Contact with sick individuals, out of state travelling. Denies diarrhea, constipation. Denies dysuria, hematuria. Denies any other symptoms. Allergies: None Social history: No smoking. No alcohol. No illicit drugs. Surgical history: hysterectomy PMD: Dr. Sadler Oncologist: Dr. Taylor Past History - Past Medical History Allergies/Adverse Reactions: Allergies Allergy/AdvReac Type Severity Reaction Status Date / Time No Known Allergies Allergy Verified 07/24/18 16:51 Home Medications: Ambulatory Orders Clindamycin [Cleocin -] 150 mg PO Q8H 7 Days #63 capsule 07/14/18 Metronidazole 250 mg PO TID 07/14/18 Cancer: Yes (LUNG) COPD: No Diabetes: Yes GI Disorders: Yes (DIVERTICULITIS WITH ABSCESS AND DRAINAGE) Hypercholesterolemia: Yes - Suicide/Smoking/Psychosocial Hx Smoking History: Former smoker Have you smoked in the past 12 months: No If you are a former smoker, when did you quit?: 3 yrs ago Information on smoking cessation initiated: No Hx Alcohol Use: No Drug/Substance Use Hx: No Substance Use Type: None *Physical Exam - Vital Signs Last Vital Signs Temp Pulse Resp BP Pulse Ox 98.3 F 91 H 16 128/59 L 95 07/24/18 16:53 07/24/18 16:53 07/24/18 16:53 07/24/18 16:53 07/24/18 16:53 - Physical Exam Comments: 07/25/18 00:21 General Physical Exam: NAD EOMI, LAKHWINDER MMM, OP WNL. +Nodular lymphadenopathy NCAT, no midline cervical tenderness RRR, nl s1/s2, no m/r/g CTABL, no w/r/r Soft, NTND. +Clean dry intact abscess No edema, WWP, no rash Neuro grossly intact, gait WNL, moving all 4 A&O x 3, mood/affect WNL. Moderate Sedation - Procedure Monitoring Vital Signs: Procedure Monitoring Vital Signs Temperature 98.3 F 07/24/18 16:53 Pulse Rate 91 H 07/24/18 16:53 Respiratory Rate 16 07/24/18 16:53 Blood Pressure 128/59 L 07/24/18 16:53 O2 Sat by Pulse Oximetry (%) 95 07/24/18 16:53 ED Treatment Course - LABORATORY CBC & Chemistry Diagram: 07/24/18 21:00 07/24/18 21:00 - ADDITIONAL ORDERS Additional order review: Laboratory Results 07/24/18 07/24/18 17:24 17:24 PT with INR 15.80 H INR 1.34 H Sodium 130 L Potassium 4.6 Chloride 95 L Carbon Dioxide 28 Anion Gap 6 L BUN 8 Creatinine 0.6 Creat Clearance w eGFR > 60 Random Glucose 132 H Calcium 8.4 L Total Bilirubin 0.3 AST 10 L ALT 10 L Alkaline Phosphatase 83 Total Protein 6.9 Albumin 2.8 L 07/24/18 17:24 RBC 4.27 MCV 82.5 MCHC 33.8 RDW 14.2 MPV 6.6 L Neutrophils % 71.5 Lymphocytes % 18.9 Monocytes % 7.1 Eosinophils % 2.0 Basophils % 0.5 - RADIOLOGY Radiology Studies Ordered: Category Date Time Status CHEST PA & LAT [RAD] Stat Radiology 07/24/18 20:27 Ordered Medical Decision Making - Medical Decision Making 07/24/18 20:33 78yoF w/ recent diagnosis of metastatic lung CA in setting of subacute back and clavicular lymph node pain presents w/ chronic pain not controlled by tramadol and new fevers of unknown etiology. Pt w/ recent abd wall cyst excision, surgical site healing well, no e/o infection. - labs - ua/ucx - blood culutres - monitor fever curve - pain control - d/w oncology, Dr. Taylor 07/25/18 00:22 Pt still complainig of pain after IV pain medications in ED. Na is dropping rapidly on repeat labs. From 07/19 - today (4 days) Na dropped from 138 -> 130. Pt seen in ER by Dr. Taylor. admit. 07/25/18 00:44 Pt's Granddaughter (speaks setswana) Adele Harris, *DC/Admit/Observation/Transfer Diagnosis at time of Disposition: Neck mass - Discharge Dispostion Decision to Admit order: Yes - Referrals Referrals: Reva Sadler MD [Primary Care Provider] - - Patient Instructions - Post Discharge Activity
[2018-07-24 21:10] LABS: BASO % 0.7 % (0-2.0); EOS % 2.5 % (0-4.5); HEMATOCRIT 34.6 % (32.4-45.2); HEMOGLOBIN 11.9 GM/dL (10.7-15.3); LYMPH % 24.2 % (8-40); MCH 28.5 pg (25.7-33.7); MCHC 34.4 g/dl (32.0-36.0); MEAN CELL VOLUME 82.8 fl (80-96); MEAN PLT VOLUME 6.2 fl (7.5-11.1); MONO % 8.7 % (3.8-10.2); NEUT % 63.9 % (42.8-82.8); PLATELET COUNT 598 K/MM3 (134-434); RBC 4.18 M/mm3 (3.60-5.2); RDW 14.5 % (11.6-15.6); WHITE BLOOD COUNT 10.5 K/mm3 (4.0-10.0)
[2018-07-24 21:37] LABS: ALBUMIN 2.8 g/dl (3.4-5.0); ALK PHOS 86 U/L (45-117); ANION GAP 5 MMOL/L (8-16); BILIRUBIN,TOTAL 0.2 mg/dL (0.2-1); BLOOD UREA NITROGEN 8 mg/dL (7-18); CALCIUM 8.5 mg/dL (8.5-10.1); CHLORIDE 97 mmol/L (98-107); CO2 29 mmol/L (21-32); CREATININE 0.6 mg/dL (0.55-1.3); GLUCOSE,RANDOM 153 mg/dL (74-106); INR 1.33 (0.83-1.09); POTASSIUM 4.6 mmol/L (3.5-5.1); PROTHROMBIN TIME (PATIENT) 15.7 SEC (9.7-13.0); SGOT/AST 13 U/L (15-37); SGPT/ALT 9 U/L (13-61); SODIUM 131 mmol/L (136-145); TOT PROT 6.8 g/dl (6.4-8.2)
[2018-07-24 21:40] LABS: ACTIVATED PTT 34.9 SECONDS (25.2-36.5)
[2018-07-24] MEDS ORDERED: morphine SULFATE 4 MG/ML VIAL ONE (22:27)
[2018-07-24] MEDS ORDERED: ACETAMINOPHEN 325 MG TABLET (FP) ONE (22:27)
[2018-07-24] MEDS ORDERED: KETOROLAC TROMETHAMINE 30 MG/1 ML VIAL ONE (22:28)
[2018-07-25] MEDS ORDERED: morphine CARPU-JECT 4 MG/1 ML DISP.SYRIN IVPUSH ONE (00:25)
--- NOTE | 2018-07-25 01:46 | HP ---
CHIEF COMPLAINT: right shoulder pain PCP: Doroteo HISTORY OF PRESENT ILLNESS: 78 year old female former smoker, brought in with family because of severe neck and right shoulder pain, ongoing for several days to weeks. Patient says that she had cyst removed from abdomen this past Wed at [facility]. As per patient's family she was diagnosed with lung cancer (unknown how) about 9 days ago and was scheduled to follow with Dr. Taylor. She has been having intermittent fevers as well. Tramadol at home was not working for pain control. Patient feels her pain was better controlled after toradol, morphine, and tylenol combo in ER. Oncologist: Dr. Taylor ER course was notable for: (1) toradol (2) morphine (3) tylenol Recent Travel: no PAST MEDICAL HISTORY: DM, chronic low back pain, HLD, PAST SURGICAL HISTORY: surgical excision of R abdominal wall infected cyst last wed. hysterectomy Social History: Social history: Former smoker (smoked 15 years) No alcohol. No illicit drugs. Family History: Allergies No Known Allergies Allergy (Verified 07/24/18 16:51) HOME MEDICATIONS: Home Medications Medication Instructions Recorded Clindamycin [Cleocin -] 150 mg PO Q8H 7 Days #63 capsule 07/14/18 Metronidazole 250 mg PO TID 07/14/18 REVIEW OF SYSTEMS CONSTITUTIONAL: Absent: chills, diaphoresis, weight change Present- generalized weakness, malaise, loss of appetite, fever, HEENT: Absent: rhinorrhea, nasal congestion, throat pain, throat swelling, difficulty swallowing, mouth swelling, ear pain, eye pain, visual changes CARDIOVASCULAR: Absent: chest pain, syncope, palpitations, irregular heart rate, lightheadedness , peripheral edema RESPIRATORY: Absent: cough, shortness of breath, dyspnea with exertion, orthopnea, wheezing, stridor, hemoptysis GASTROINTESTINAL: Absent: abdominal pain, abdominal distension, nausea, vomiting, diarrhea, constipation, melena, hematochezia GENITOURINARY: Absent: dysuria, frequency, urgency, hesitancy, hematuria, flank pain, genital pain MUSCULOSKELETAL: Absent: arthralgia, joint swelling, Present- back pain, neck pain, myalgia, SKIN: Absent: rash, itching, pallor HEMATOLOGIC/IMMUNOLOGIC: Absent: easy bleeding, easy bruising, lymphadenopathy, frequent infections ENDOCRINE: Absent: unexplained weight gain, unexplained weight loss, heat intolerance, cold intolerance NEUROLOGIC: Absent: focal weakness or paresthesias, seizure, mental status changes, bladder or bowel incontinence Present- headache, dizziness, unsteady gait, PSYCHIATRIC: Absent: anxiety, depression, suicidal or homicidal ideation, hallucinations. PHYSICAL EXAMINATION Vital Signs - 24 hr 07/24/18 16:53 Temperature 98.3 F Pulse Rate 91 H Respiratory 16 Rate Blood Pressure 128/59 L O2 Sat by Pulse 95 Oximetry (%) GENERAL: Awake, alert, and fully oriented, in no acute distress. HEAD: Normal with no signs of trauma. EYES: Pupils equal, round and reactive to light, extraocular movements intact, sclera anicteric, conjunctiva clear. No lid lag. EARS, NOSE, THROAT: Ears normal, nares patent, oropharynx clear without exudates. Moist mucous membranes. NECK: Normal range of motion, + hard 2-3 cm lymph nodes palpable b/l on neck LUNGS: Breath sounds equal, clear to auscultation bilaterally. No wheezes, and no crackles. No accessory muscle use. HEART: Regular rate and rhythm, normal S1 and S2 without murmur, rub or gallop. ABDOMEN: Soft, nontender, not distended, + scar s/p cyst removal, no tenderness , slight erythema MUSCULOSKELETAL: Normal range of motion at all joints. No bony deformities or tenderness. No CVA tenderness. UPPER EXTREMITIES: 2+ pulses, warm, well-perfused. No cyanosis. No clubbing. No peripheral edema. LOWER EXTREMITIES: 2+ pulses, warm, well-perfused. No calf tenderness. No peripheral edema. NEUROLOGICAL: Cranial nerves II-XII intact. Normal speech. Normal gait. PSYCHIATRIC: Cooperative. Good eye contact. Appropriate mood and affect. SKIN: Warm, dry, normal turgor, no rashes or lesions noted, normal capillary refill. Laboratory Results - last 24 hr 07/24/18 07/24/18 07/24/18 17:24 17:24 17:24 WBC 11.4 H RBC 4.27 Hgb 11.9 Hct 35.2 MCV 82.5 MCH 27.9 MCHC 33.8 RDW 14.2 Plt Count 580 H MPV 6.6 L Absolute Neuts (auto) 8.1 H Neutrophils % 71.5 Lymphocytes % 18.9 Monocytes % 7.1 Eosinophils % 2.0 Basophils % 0.5 Nucleated RBC % 0 PT with INR 15.80 H INR 1.34 H PTT (Actin FS) Sodium 130 L Potassium 4.6 Chloride 95 L Carbon Dioxide 28 Anion Gap 6 L BUN 8 Creatinine 0.6 Creat Clearance w eGFR > 60 Random Glucose 132 H Calcium 8.4 L Total Bilirubin 0.3 AST 10 L ALT 10 L Alkaline Phosphatase 83 Total Protein 6.9 Albumin 2.8 L 07/24/18 07/24/18 07/24/18 21:00 21:00 21:00 WBC 10.5 H RBC 4.18 Hgb 11.9 Hct 34.6 MCV 82.8 MCH 28.5 MCHC 34.4 RDW 14.5 Plt Count 598 H MPV 6.2 L Absolute Neuts (auto) 6.7 Neutrophils % 63.9 Lymphocytes % 24.2 D Monocytes % 8.7 Eosinophils % 2.5 Basophils % 0.7 Nucleated RBC % 0 PT with INR 15.70 H INR 1.33 H PTT (Actin FS) 34.9 Sodium 131 L Potassium 4.6 Chloride 97 L Carbon Dioxide 29 Anion Gap 5 L BUN 8 Creatinine 0.6 Creat Clearance w eGFR > 60 Random Glucose 153 H Calcium 8.5 Total Bilirubin 0.2 AST 13 L ALT 9 L Alkaline Phosphatase 86 Total Protein 6.8 Albumin 2.8 L cxr and ekg reviewed ASSESSMENT/PLAN: #78 yo woman with diagnosed with lung cancer at outside facility with intractable pain, palpable cervical lymphadenopathy. 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 -admit to med/surg -pain control- morphine 15mg PO q12hrs, 2mg IV for breakthrough pain -zofran IV prn for nausea/vomiting -IV fluid hydration -bed rest, fall precautions -obtain records from [facility] [place] -oncology consult- Dr. Taylor #Hyponatremia/hypochloremia- euvolemic -urine lytes -serum osm -urine osm -TSH -gentle IV fluid hydration -check bmp q6hrs -accurate i/o -daily weights #abdominal cyst removal -obtain outside medical records #DM -novolog sliding scale -a1c -diabetic diet dvt ppx -lovenox 40mg sc daily Visit type - Emergency Visit Emergency Visit: Yes ED Registration Date: 07/25/18 Care time: The patient presented to the Emergency Department on the above date and was hospitalized for further evaluation of their emergent condition. - New Patient This patient is new to me today: Yes Date on this admission: 07/25/18 - Critical Care Critical Care patient: No
[2018-07-25 02:55] LABS: URINE APPEARANCE CLEAR; URINE BILIRUBIN NEGATIVE (<2.0 mg/dL); URINE COLOR YELLOW; URINE GLUCOSE (UA) NEGATIVE (NEGATIVE); URINE KETONE NEGATIVE (NEGATIVE); URINE LEUK ESTERASE TRACE (NEGATIVE); URINE NITRITE NEGATIVE (NEGATIVE); URINE PROTEIN NEGATIVE (NEGATIVE); URINE UROBILINOGEN NEGATIVE mg/dL (0.2-1.0)
[2018-07-25] MEDS ORDERED: ONDANSETRON 4 MG/2 ML VIAL IVPB PRN (02:56)
[2018-07-25 03:04] LABS: URINE MUCUS RARE
[2018-07-25] MEDS: SODIUM CHLORIDE 1,000 ML IV SCH (04:10)
[2018-07-25 06:22] LABS: HEMATOCRIT 34.1 % (32.4-45.2); HEMOGLOBIN 11.1 GM/dL (10.7-15.3); MCH 27.3 pg (25.7-33.7); MCHC 32.5 g/dl (32.0-36.0); MEAN CELL VOLUME 83.9 fl (80-96); MEAN PLT VOLUME 6.5 fl (7.5-11.1); PLATELET COUNT 515 K/MM3 (134-434); RBC 4.06 M/mm3 (3.60-5.2); RDW 14.3 % (11.6-15.6); WHITE BLOOD COUNT 8.3 K/mm3 (4.0-10.0)
[2018-07-25 07:00] LABS: ANION GAP 4 MMOL/L (8-16); BLOOD UREA NITROGEN 11 mg/dL (7-18); CALCIUM 8.5 mg/dL (8.5-10.1); CHLORIDE 97 mmol/L (98-107); CO2 32 mmol/L (21-32); CREATININE 0.7 mg/dL (0.55-1.3); GLUCOSE,RANDOM 109 mg/dL (74-106); POTASSIUM 4.7 mmol/L (3.5-5.1); SODIUM 133 mmol/L (136-145)
[2018-07-25] MEDS: INSULIN SLIDING SCALE (NOVOLOG) 1 VIAL SQ SCH ×4 (07:45→21:05)
[2018-07-25] MEDS: DOCUSATE SODIUM 100 MG CAPSULE (FP) PO SCH ×3 (07:45→22:59)
[2018-07-25 07:59] LABS: OSMOLALITY,SERUM 274 mosm/kg (278-305)
[2018-07-25] MEDS ORDERED: ENOXAPARIN NA (PORCINE) 40 MG/0.4 ML DISP.SYRIN SQ ONE (09:37)
[2018-07-25] MEDS ORDERED: morphine SO4 SUSTAINED ACTING 15 MG TABLET.SA ONE (09:37)
[2018-07-25] MEDS: ENOXAPARIN NA (PORCINE) 40 MG/0.4 ML DISP.SYRIN SQ SCH (09:38)
[2018-07-25] MEDS: morphine SO4 SUSTAINED ACTING 15 MG TABLET.SA PO SCH ×2 (09:38→22:59)
--- NOTE | 2018-07-25 10:47 | PN ---
Progress Note, Physician Chief Complaint: patient seen and examined admitted for back pain and shoulder pain recently diagnosed with metastatic lung cancer s/p biopsy of abdominal cyst at [facility] metastatic adenocarcinoma most likely lung primary- took clindamycin and flagyl for one week post biopsy saw her PMD dr lamin javed on 07/15 and was supposed to get neck lymph node biopsy at [facility] complaining of RIOS for past week recently seen by oncology earlier this week - Current Medication List Current Medications: Active Medications Docusate Sodium (Colace -) 100 mg PO TID [facility] Last Admin: 07/25/18 07:45 Dose: 100 mg Enoxaparin Sodium (Lovenox -) 40 mg SQ DAILY [facility] Last Admin: 07/25/18 09:38 Dose: 40 mg Sodium Chloride (Normal Saline -) 1,000 mls @ 42 mls/hr IV ASDIR [facility] Last Admin: 07/25/18 04:10 Dose: 42 mls/hr Insulin Aspart (Novolog Vial Sliding Scale -) 1 vial SQ ACHS [facility]; Protocol Last Admin: 07/25/18 07:45 Dose: Not Given Morphine Sulfate (Morphine Sulfate) 2 mg IVPUSH Q4H PRN PRN Reason: PAIN LEVEL 6-10 Morphine Sulfate (Ms Contin -) 15 mg PO BID [facility] Last Admin: 07/25/18 09:38 Dose: 15 mg Ondansetron HCl (Zofran Injection) 4 mg IVPB Q6H PRN PRN Reason: NAUSEA - Objective Vital Signs: Vital Signs Temperature 98.3 F 07/25/18 08:07 Pulse Rate 63 07/25/18 08:07 Respiratory Rate 16 07/25/18 08:07 Blood Pressure 107/53 L 07/25/18 08:07 O2 Sat by Pulse Oximetry (%) 95 07/25/18 08:07 Constitutional: Yes: Calm Neck: Yes: Other (firm hard supraclavicular lymph nodes) Cardiovascular: Yes: Regular Rate and Rhythm, S1, S2 Respiratory: Yes: CTA Bilaterally Gastrointestinal: Yes: Normal Bowel Sounds, Soft, Other (site of excision healing well) Edema: No Neurological: Yes: Alert, Oriented Labs: CBC, BMP 07/25/18 06:00 07/25/18 06:00 INR, PTT INR 1.33 (0.83-1.09) H 07/24/18 21:00 Problem List - Problems (1) Lung mass Assessment/Plan: ct chest and T-L spine ct scan complaining of back pain RIOS - MRI ordered oncology eval biopsy of abdominal wall lesion- adenocarcinoma- metastatic most likely primary is the lung dvt ppx zofran prn morphine pain control stool softners patient started seeing dr olivas - will get pulm consult Code(s): R91.8 - OTHER NONSPECIFIC ABNORMAL FINDING OF LUNG FIELD (2) Neck mass Assessment/Plan: ct scan of neck oncology eval IR consult for lymph node biopsy Code(s): R22.1 - LOCALIZED SWELLING, MASS AND LUMP, NECK (3) Electrolyte abnormality Assessment/Plan: hyponatremia secondary to lung cancer urine sodium renal eval Code(s): E87.8 - OTH DISORDERS OF ELECTROLYTE AND FLUID BALANCE, NEC (4) Diabetes Assessment/Plan: hold metformin will monitor bgm for now start sliding scale check hgbac1 diabetic diet Code(s): E11.9 - TYPE 2 DIABETES MELLITUS WITHOUT COMPLICATIONS Qualifiers: Diabetes mellitus type: type 2
--- NOTE | 2018-07-25 13:00 | CONSULT ---
Consult Consult Specialty:: HEMATOLOGY-ONCOLOGY Referred by:: Renee Reason for Consultation:: recent diagnosis of Ca - History of Present Illness Chief Complaint: right shoulder pain History of Present Illness: 78 yr old namibian-speaking woman with NIDDMII, HTN, hx of diverticular abscess, recently diagnosed with Lung cancer with abdominal wall mets, completed treatment for abdominal wall cellulitis, s/p cyst removal by Dr. Tavarez now presents with intractable right shoulder pain and fevers at home. a/w chills and unintentional weightloss. - History Source History Provided By: Patient, Family Member - Past Medical History Heme/Onc: Yes: Cancer - Alcohol/Substance Use Hx Alcohol Use: No - Smoking History Smoking history: Former smoker Have you smoked in the past 12 months: No If you are a former smoker, when did you quit?: 3 yrs ago Home Medications - Allergies Allergies/Adverse Reactions: Allergies Allergy/AdvReac Type Severity Reaction Status Date / Time No Known Allergies Allergy Verified 07/24/18 16:51 - Home Medications Home Medications: Ambulatory Orders Metronidazole 500 mg PO TID 07/14/18 Clindamycin [Cleocin -] 300 mg PO Q8H 07/25/18 Meclizine HCl [Antivert -] 12.5 mg PO BID PRN 07/25/18 Metformin HCl [Metformin HCl ER] 500 mg PO DAILY 07/25/18 Omeprazole 40 mg PO DAILY 07/25/18 Rosuvastatin [Crestor -] 10 mg PO DAILY 07/25/18 Tramadol HCl [Ultram] 50 mg PO QID PRN 07/25/18 Review of Systems - Review of Systems Constitutional: reports: Fever, Loss of Appetite Eyes: reports: No Symptoms HENT: denies: Difficult Swallowing, Throat Pain Neck: reports: Lumps Cardiovascular: reports: No Symptoms Respiratory: reports: Cough (productive, greenish sputum for pasts few days) Gastrointestinal: reports: Diarrhea (few episodes after abx treatment last week , now resolved) Genitourinary: reports: No Symptoms Musculoskeletal: reports: Joint Pain Neurological: denies: Confusion, Dizziness Hematology/Lymphatic: denies: Easily Bruised, Excessive Bleeding Physical Exam Vital Signs: Vital Signs Temperature 98.3 F 07/25/18 08:07 Pulse Rate 63 07/25/18 08:07 Respiratory Rate 16 07/25/18 08:07 Blood Pressure 107/53 L 07/25/18 08:07 O2 Sat by Pulse Oximetry (%) 95 07/25/18 08:07 Constitutional: Yes: No Distress, Calm Eyes: Yes: EOM Intact, PERRL HENT: Yes: Atraumatic, Normocephalic Neck: Yes: Lymphadenopathy Cardiovascular: Yes: Regular Rate and Rhythm, S1, S2 Respiratory: Yes: Regular, CTA Bilaterally Gastrointestinal: Yes: Normal Bowel Sounds, Soft, Other (RUQ with healing incision, mild erythema, no discharge, no tenderness) Edema: No Peripheral Pulses WNL: Yes Wound/Incision: Yes: Clean/Dry Neurological: Yes: Alert, Oriented, Other (gait normal) Labs: CBC, BMP 07/25/18 06:00 07/25/18 06:00 Assessment/Plan 78 yr old woman with recent diagnosis of metastatic lung ca to abdominal wall, HTN, DM presents with shoulder pain and fevers. Problem List: Adenocarcinoma with mets hyponatremia thrombocytosis A/P - discussed with family at bedside regarding obtaining pathology from [facility] to be sent for next gen sequencing for gene mutation to direct target treatment plan. family had signed forms from [facility], refaxed to in triplicate with copy of fax confirmation given to family. family wants to call and follow-up. they will let us know when the specimens are approved to be sent to [facility]. - plan to re-biopsy at [facility] and for port-placement
[2018-07-25] MEDS ORDERED: INSULIN (NOVOLOG) ASPART 100 UNITS/ML 10ML VIAL ONE (13:43)
--- NOTE | 2018-07-25 13:54 | CON.PULM ---
Consult Consult Specialty:: PULMONARY Referred by:: Dr Sadler Reason for Consultation:: lung cancer - History of Present Illness Chief Complaint: back pain History of Present Illness: 78yo female with h/o DM, hyperlipidemia, abdominal wall abscess s/p drainage recently found to have lung mass with likely metastatic disease at [facility] s /p biopsy but pathology pending who presents with severe right shoulder pain. She denies any shortness of breath or chest pain. No cough or wheezing. She has been experiencing subjective fevers, chills and sweats as well as unintentional weight loss. She is a long time smoker, started in her teens, smoked on average 1 PPD. Denies history of asthma or COPD. She was told that she had a lung mass about a year ago but never followed up for the biopsy. - History Source History Provided By: Patient, Family Member, Medical Record Limitations to Obtaining History: Language Barrier - Past Medical History Cardio/Vascular: Yes: Hyperlipdemia Endocrine: Yes: Diabetes Mellitus - Alcohol/Substance Use Hx Alcohol Use: No - Smoking History Smoking history: Former smoker Have you smoked in the past 12 months: No If you are a former smoker, when did you quit?: 3 yrs ago Home Medications - Allergies Allergies/Adverse Reactions: Allergies Allergy/AdvReac Type Severity Reaction Status Date / Time No Known Allergies Allergy Verified 07/24/18 16:51 - Home Medications Home Medications: Ambulatory Orders Metronidazole 500 mg PO TID 07/14/18 Clindamycin [Cleocin -] 300 mg PO Q8H 07/25/18 Meclizine HCl [Antivert -] 12.5 mg PO BID PRN 07/25/18 Metformin HCl [Metformin HCl ER] 500 mg PO DAILY 07/25/18 Omeprazole 40 mg PO DAILY 07/25/18 Rosuvastatin [Crestor -] 10 mg PO DAILY 07/25/18 Tramadol HCl [Ultram] 50 mg PO QID PRN 07/25/18 Review of Systems - Review of Systems Constitutional: reports: Chills, Fever, Unintentional Wgt. Loss, Weakness Eyes: denies: Recent Change in Vision HENT: denies: Nasal Congestion, Throat Pain Neck: denies: Stiffness, Tenderness Cardiovascular: reports: Shortness of Breath. denies: Chest Pain Respiratory: denies: Cough, Hemoptysis, Wheezing Gastrointestinal: denies: Abdominal Pain, Nausea, Vomiting Genitourinary: denies: Dysuria, Hematuria Neurological: denies: Headache Endocrine: reports: Unexplained Weight Loss Physical Exam Vital Sings: Vital Signs Temperature 98.3 F 07/25/18 08:07 Pulse Rate 63 07/25/18 08:07 Respiratory Rate 16 07/25/18 08:07 Blood Pressure 107/53 L 07/25/18 08:07 O2 Sat by Pulse Oximetry (%) 95 07/25/18 08:07 Constitutional: Yes: Calm Eyes: Yes: Conjunctiva Clear, EOM Intact HENT: Yes: Atraumatic, Normocephalic Neck: Yes: Lymphadenopathy (bilateral firm cervical LAD) Cardiovascular: Yes: Regular Rate and Rhythm Respiratory: Yes: Diminished (distant breath sounds). No: Wheezes ...Clubbing: No Gastrointestinal: Yes: Normal Bowel Sounds, Soft. No: Tenderness Edema: No Neurological: Yes: Alert, Oriented Labs: CBC, BMP 07/25/18 06:00 07/25/18 06:00 Imaging - Results Chest X-ray: Report Reviewed, Image Reviewed (RML vs RLL lung mass, left atelectasis) Assessment/Plan Intractable Pain Likely Metastatic Disease from Lung primary DM Hyperlipidemia Recent Abdominal Wall Abscess - pain control - will need to get records from [facility] on staging and pathology - bone scan if none done - O2 as needed to keep Spo2 >90% - inhaled bronchodilators - DVT prophylaxis Thank you for this consult Lauro Dias MD
[2018-07-25] MEDS ORDERED: MORPHINE SULFATE 2 MG/ML VIAL ONE (14:11)
--- NOTE | 2018-07-25 14:14 | CONSULT ---
Consultation: REQUESTING PROVIDER: NEPHROLOGY CONSULT CONSULT REQUEST: We have been asked to medically evaluate this patient for ( Acute Kidney Injury). HISTORY OF PRESENT ILLNESS: Pt is a pleasant 78 y/o lady with a significant past medical history of NIDDM, Diverticulitis, UTI, HLD, and C-Diff infection (Speed treated at [facility]) who [facility] c/o severe neck pain. Pt also endorses fevers for 2 days with a Tmax of 101. 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 Pt was reportedly informed of her cancer diagnosis 9 days ago by her PCP. Pt endorses a weight loss from 152 down to 138 in a matter of a few months unintentionally. Denies any previous problems with her kidneys. Endorses smoking 1 pack per day since her teenage years until 75 years of ago. FH- Mother DM, Father noncontributory Social Hx- 60 pack year smoking history. Quit age 75. Surg Hx- Hysterectomy Allergies- None REVIEW OF SYSTEMS: CONSTITUTIONAL: PRESENT: fever, chills, generalized weakness, loss of appetite, weight change HEENT: Absent: rhinorrhea, nasal congestion, throat pain, throat swelling, difficulty swallowing, mouth swelling, ear pain, eye pain, visual changes CARDIOVASCULAR: Absent: chest pain, syncope, palpitations, irregular heart rate, lightheadedness , peripheral edema RESPIRATORY: Absent: cough, shortness of breath, dyspnea with exertion, orthopnea, wheezing, stridor, hemoptysis GASTROINTESTINAL: Absent: abdominal pain, abdominal distension, nausea, vomiting, diarrhea, constipation, melena, hematochezia GENITOURINARY: Absent: dysuria, frequency, urgency, hesitancy, hematuria, flank pain, genital pain MUSCULOSKELETAL: PRESENT: myalgia, neck pain SKIN: Absent: rash, itching, pallor HEMATOLOGIC/IMMUNOLOGIC: PRESENT: lymphadenopathy ENDOCRINE: PRESENT: unexplained weight loss NEUROLOGIC: PRESENT: headache PSYCHIATRIC: Absent: anxiety, depression, suicidal or homicidal ideation, hallucinations. PHYSICAL EXAMINATION Vital Signs - 24 hr 07/24/18 07/24/18 07/25/18 16:53 19:12 06:23 Temperature 98.3 F Pulse Rate 91 H Pulse Rate [ 73 Left] Respiratory 16 18 Rate Blood Pressure 128/59 L Blood Pressure 120/65 [Right Arm] O2 Sat by Pulse 95 98 97 Oximetry (%) 07/25/18 08:07 Temperature 98.3 F Pulse Rate Pulse Rate [ 63 Left] Respiratory 16 Rate Blood Pressure Blood Pressure 107/53 L [Right Arm] O2 Sat by Pulse 95 Oximetry (%) GENERAL: NAD HEAD: Atraumatic/ Normocephalic. EYES: EOMI Conjunctiva clear EARS, NOSE, THROAT: MMM NECK: Two palpable masses at lateral bases of neck. LUNGS: Fine rales Right lower base HEART: RRR S1S2 ABDOMEN: Soft Nondistended Nontender MUSCULOSKELETAL: Normal range of motion at all joints. No bony deformities or tenderness. No CVA tenderness. UPPER EXTREMITIES: No CCE LOWER EXTREMITIES: 1 + pitting edema NEUROLOGICAL: No gross neuro def appreciated PSYCHIATRIC: Cooperative. Good eye contact. Appropriate mood and affect. SKIN: No rashes or lesions appreciated. Laboratory Results - last 24 hr 07/24/18 07/24/18 07/24/18 17:24 17:24 17:24 WBC 11.4 H RBC 4.27 Hgb 11.9 Hct 35.2 MCV 82.5 MCH 27.9 MCHC 33.8 RDW 14.2 Plt Count 580 H MPV 6.6 L Absolute Neuts (auto) 8.1 H Neutrophils % 71.5 Lymphocytes % 18.9 Monocytes % 7.1 Eosinophils % 2.0 Basophils % 0.5 Nucleated RBC % 0 PT with INR 15.80 H INR 1.34 H PTT (Actin FS) Sodium 130 L Potassium 4.6 Chloride 95 L Carbon Dioxide 28 Anion Gap 6 L BUN 8 Creatinine 0.6 Creat Clearance w eGFR > 60 POC Glucometer Random Glucose 132 H Serum Osmolality Calcium 8.4 L Total Bilirubin 0.3 AST 10 L ALT 10 L Alkaline Phosphatase 83 Total Protein 6.9 Albumin 2.8 L TSH Urine Color Urine Appearance Urine pH Ur Specific [place] Urine Protein Urine Glucose (UA) Urine Ketones Urine Blood Urine Nitrite Urine Bilirubin Urine Urobilinogen Ur Leukocyte Esterase Urine WBC (Auto) Urine RBC (Auto) Urine Mucus 07/24/18 07/24/18 07/24/18 21:00 21:00 21:00 WBC 10.5 H RBC 4.18 Hgb 11.9 Hct 34.6 MCV 82.8 MCH 28.5 MCHC 34.4 RDW 14.5 Plt Count 598 H MPV 6.2 L Absolute Neuts (auto) 6.7 Neutrophils % 63.9 Lymphocytes % 24.2 D Monocytes % 8.7 Eosinophils % 2.5 Basophils % 0.7 Nucleated RBC % 0 PT with INR 15.70 H INR 1.33 H PTT (Actin FS) 34.9 Sodium 131 L Potassium 4.6 Chloride 97 L Carbon Dioxide 29 Anion Gap 5 L BUN 8 Creatinine 0.6 Creat Clearance w eGFR > 60 POC Glucometer Random Glucose 153 H Serum Osmolality Calcium 8.5 Total Bilirubin 0.2 AST 13 L ALT 9 L Alkaline Phosphatase 86 Total Protein 6.8 Albumin 2.8 L TSH Urine Color Urine Appearance Urine pH Ur Specific [place] Urine Protein Urine Glucose (UA) Urine Ketones Urine Blood Urine Nitrite Urine Bilirubin Urine Urobilinogen Ur Leukocyte Esterase Urine WBC (Auto) Urine RBC (Auto) Urine Mucus 07/25/18 07/25/18 07/25/18 02:00 06:00 06:00 WBC 8.3 RBC 4.06 Hgb 11.1 Hct 34.1 MCV 83.9 MCH 27.3 MCHC 32.5 RDW 14.3 Plt Count 515 H MPV 6.5 L Absolute Neuts (auto) Neutrophils % Lymphocytes % Monocytes % Eosinophils % Basophils % Nucleated RBC % PT with INR INR PTT (Actin FS) Sodium 133 L Potassium 4.7 Chloride 97 L Carbon Dioxide 32 Anion Gap 4 L BUN 11 Creatinine 0.7 Creat Clearance w eGFR > 60 POC Glucometer Random Glucose 109 H Serum Osmolality 274 L Calcium 8.5 Total Bilirubin AST ALT Alkaline Phosphatase Total Protein Albumin TSH 0.98 Urine Color Yellow Urine Appearance Clear Urine pH 6.0 Ur Specific [place] 1.011 Urine Protein Negative Urine Glucose (UA) Negative Urine Ketones Negative Urine Blood Negative Urine Nitrite Negative Urine Bilirubin Negative Urine Urobilinogen Negative Ur Leukocyte Esterase Trace Urine WBC (Auto) 4 Urine RBC (Auto) 1 Urine Mucus Rare 07/25/18 07/25/18 07:40 13:37 WBC RBC Hgb Hct MCV MCH MCHC RDW Plt Count MPV Absolute Neuts (auto) Neutrophils % Lymphocytes % Monocytes % Eosinophils % Basophils % Nucleated RBC % PT with INR INR PTT (Actin FS) Sodium Potassium Chloride Carbon Dioxide Anion Gap BUN Creatinine Creat Clearance w eGFR POC Glucometer [phone] Random Glucose Serum Osmolality Calcium Total Bilirubin AST ALT Alkaline Phosphatase Total Protein Albumin TSH Urine Color Urine Appearance Urine pH Ur Specific [place] Urine Protein Urine Glucose (UA) Urine Ketones Urine Blood Urine Nitrite Urine Bilirubin Urine Urobilinogen Ur Leukocyte Esterase Urine WBC (Auto) Urine RBC (Auto) Urine Mucus Active Medications Generic Name Dose Route Start Last Admin Trade Name Jonesq PRN Reason Stop Dose Admin Docusate Sodium 100 mg 07/25/18 06:00 07/25/18 07:45 Colace - PO 100 mg TID LYNN Administration Enoxaparin Sodium 40 mg 07/25/18 10:00 07/25/18 09:38 Lovenox - SQ 40 mg DAILY LYNN Administration Sodium Chloride 1,000 mls @ 42 mls/hr 07/25/18 02:45 07/25/18 04:10 Normal Saline - IV 42 mls/hr ASDIR LYNN Administration Insulin Aspart 1 vial 07/25/18 07:00 07/25/18 13:40 Novolog Vial Sliding Scale - SQ 2 unit ACHS LYNN Administration Protocol Morphine Sulfate 2 mg 07/25/18 02:50 Morphine Sulfate IVPUSH Q4H PRN PAIN LEVEL 6-10 Morphine Sulfate 15 mg 07/25/18 10:00 07/25/18 09:38 Ms Contin - PO 15 mg BID LYNN Administration Ondansetron HCl 4 mg 07/25/18 02:56 Zofran Injection IVPB Q6H PRN NAUSEA Senna 2 tab 07/25/18 22:00 Senna - PO HS LYNN ASSESSMENT/PLAN: 78 y/o lady with a significant past medical history of NIDDM, Diverticulitis, UTI, HLD, and C-Diff infection (Speed treated at [facility]) who presented to [facility] c/o severe neck pain and fevers. #Hyponatremia 2/2 Paraneoplastic phenomenon-- SIADH in setting of Lung malignancy ? -Unlikely SIADH as patient has responded to I.V fluids -Na+ on admission 130. Now 133. -Serum Osm--> 274 -Urine Sodium pending -Urine osmolality pending -Goal of initial therapy is to raise the serum sodium concentration by 4 to 6 mEq/L in a 24-hour period -Cortisol - TSH -Continue NS @42cc/hr -BMP in AM. # DM Insulin Sliding Scale Dispo: We will continue to follow the patient. Thank you for this consultative opportunity. Visit type - Emergency Visit Emergency Visit: Yes ED Registration Date: 07/25/18 Care time: The patient presented to the Emergency Department on the above date and was hospitalized for further evaluation of their emergent condition. - New Patient This patient is new to me today: Yes Date on this admission: 07/25/18 - Critical Care Critical Care patient: No
[2018-07-25] MEDS: MORPHINE SULFATE 2 MG/ML VIAL IVPUSH PRN ×2 (14:15→20:12)
--- NOTE | 2018-07-25 16:18 | EKG ---
Test Reason : Blood Pressure : / mmHG Vent. Rate : 083 BPM Atrial Rate : 083 BPM P-R Int : 132 ms QRS Dur : 080 ms QT Int : 372 ms P-R-T Axes : 020 -01 037 degrees QTc Int : 437 ms NORMAL SINUS RHYTHM NORMAL ECG WHEN COMPARED WITH ECG OF 24-APR-2018 14:16, NO SIGNIFICANT CHANGE WAS FOUND Confirmed by MINA REECE MD ([id number]) on 07/25/2018 4:17:57 PM Referred By: Confirmed By:MINA REECE MD
--- NOTE | 2018-07-25 17:32 | PN ---
Teaching Attending Note Name of Resident: Demian Parham (Nephrology) ATTENDING PHYSICIAN STATEMENT I saw and evaluated the patient. I reviewed the resident's note and discussed the case with the resident. I agree with the resident's findings and plan as documented. Nephrology Consult Pt is a 78 year old female with pmhx of dm, diverticulitis, hld and lung cancer who presents to the ER with fever. I was called to evaluate her for hypoatremia. She has decreased PO intake. She denies excess fluid intake. She did show a response to fluids. pmhx dm, lung cancer, uti social hx denies familh hx non contrib ros fatigue Current Medications Generic Name Dose Route Start Last Admin Trade Name Freq PRN Reason Stop Dose Admin Docusate Sodium 100 mg 07/25/18 06:00 07/25/18 07:45 Colace - PO 100 mg TID LYNN Administration Enoxaparin Sodium 40 mg 07/25/18 10:00 07/25/18 09:38 Lovenox - SQ 40 mg DAILY LYNN Administration Sodium Chloride 1,000 mls @ 42 mls/hr 07/25/18 02:45 07/25/18 04:10 Normal Saline - IV 42 mls/hr ASDIR LYNN Administration Insulin Aspart 1 vial 07/25/18 07:00 07/25/18 13:40 Novolog Vial Sliding Scale - SQ 2 unit ACHS LYNN Administration Protocol Morphine Sulfate 2 mg 07/25/18 02:50 07/25/18 14:15 Morphine Sulfate IVPUSH 2 mg Q4H PRN Administration PAIN LEVEL 6-10 Morphine Sulfate 15 mg 07/25/18 10:00 07/25/18 09:38 Ms Contin - PO 15 mg BID LYNN Administration Ondansetron HCl 4 mg 07/25/18 02:56 Zofran Injection IVPB Q6H PRN NAUSEA Senna 2 tab 07/25/18 22:00 Senna - PO HS LYNN Laboratory Tests 07/24/18 07/24/18 07/25/18 17:24 21:00 02:00 WBC Hgb Sodium 130 L 131 L Serum Osmolality Urine Protein Negative Urine Blood Negative 07/25/18 07/25/18 06:00 06:00 WBC 8.3 Hgb 11.1 Sodium 133 L Serum Osmolality 274 L Urine Protein Urine Blood cardio s1s2 reg pulm clear GI soft, dressing on abd wall in place skin neg rash neuro awake and alert Impression 1. hyponatremia 2. lung cancer 3. dm 4. fever Plan - cont with saline as pt is showing response - check plasma and urine onm - check urine sodium - check cortisol and tsh - will follow Dr Ramirez
[2018-07-25] MEDS: SENNOSIDES 8.6MG TABLET (FP) PO SCH (22:59)
[2018-07-26] MEDS: INSULIN SLIDING SCALE (NOVOLOG) 1 VIAL SQ SCH ×4 (06:17→21:20)
[2018-07-26] MEDS: DOCUSATE SODIUM 100 MG CAPSULE (FP) PO SCH ×3 (06:20→21:19)
[2018-07-26] MEDS: SODIUM CHLORIDE 1,000 ML IV SCH (07:14)
[2018-07-26 07:51] LABS: BASO % 0.5 % (0-2.0); EOS % 2.4 % (0-4.5); HEMATOCRIT 34.5 % (32.4-45.2); HEMOGLOBIN 11.2 GM/dL (10.7-15.3); LYMPH % 19.7 % (8-40); MCH 27.1 pg (25.7-33.7); MCHC 32.4 g/dl (32.0-36.0); MEAN CELL VOLUME 83.6 fl (80-96); MEAN PLT VOLUME 6.4 fl (7.5-11.1); MONO % 8.1 % (3.8-10.2); NEUT % 69.3 % (42.8-82.8); PLATELET COUNT 547 K/MM3 (134-434); RBC 4.13 M/mm3 (3.60-5.2); RDW 14.3 % (11.6-15.6); WHITE BLOOD COUNT 9.9 K/mm3 (4.0-10.0)
[2018-07-26 08:15] LABS: ALBUMIN 2.5 g/dl (3.4-5.0); ALK PHOS 74 U/L (45-117); ANION GAP 6 MMOL/L (8-16); BILIRUBIN,TOTAL 0.2 mg/dL (0.2-1); BLOOD UREA NITROGEN 6 mg/dL (7-18); CALCIUM 8.2 mg/dL (8.5-10.1); CHLORIDE 98 mmol/L (98-107); CO2 29 mmol/L (21-32); CREATININE 0.5 mg/dL (0.55-1.3); GLUCOSE,RANDOM 116 mg/dL (74-106); POTASSIUM 4.9 mmol/L (3.5-5.1); SGOT/AST 9 U/L (15-37); SGPT/ALT 10 U/L (13-61); SODIUM 134 mmol/L (136-145); TOT PROT 6.2 g/dl (6.4-8.2)
[2018-07-26] MEDS: ENOXAPARIN NA (PORCINE) 40 MG/0.4 ML DISP.SYRIN SQ SCH (10:20)
[2018-07-26] MEDS: morphine SO4 SUSTAINED ACTING 15 MG TABLET.SA PO SCH ×2 (10:20→21:19)
--- NOTE | 2018-07-26 10:51 | PN ---
Progress Note (short form) - Note Progress Note: ID consult dictated imp/reccd 78 yo female recently diagnosed with metastatic adenocarcinoma s/p biopsy of LUQ abdominal wall cyst/mass 06/2618 she is now admitted with neck pain and swelling chest ct with RLL lung mass she reports fevers at home- subjective no nausea no vomiting no diarrhea no dysuria no cough was treated 07/15 with 10 day course of clindamycin and flagyl currently afebrile in the hospital surgical site on abdominal wall has healed blood cultures pending prior history of ecoli esbl uti- current urine culture is negative prior diverticular abscess- f/u ct scan 06/17/18 shows complete resolution if she remains afebrile with negative blood cultures no objection to port placement for chemotherapy multiple imaging studies have been done and results are pending continue contact isolation per hospital policy Problem List - Problems (1) Metastatic adenocarcinoma Code(s): C79.9 - SECONDARY MALIGNANT NEOPLASM OF UNSPECIFIED SITE (2) Neck mass Code(s): R22.1 - LOCALIZED SWELLING, MASS AND LUMP, NECK (3) History of ESBL E. coli infection Code(s): Z86.19 - PERSONAL HISTORY OF OTHER INFECTIOUS AND PARASITIC DISEASES (4) History of diverticular abscess of colon Code(s): Z87.19 - PERSONAL HISTORY OF OTHER DISEASES OF THE DIGESTIVE SYSTEM
--- NOTE | 2018-07-26 11:10 | PN ---
Problem List - Problems (1) Metastatic adenocarcinoma Code(s): C79.9 - SECONDARY MALIGNANT NEOPLASM OF UNSPECIFIED SITE (2) Neck mass Code(s): R22.1 - LOCALIZED SWELLING, MASS AND LUMP, NECK (3) History of ESBL E. coli infection Code(s): Z86.19 - PERSONAL HISTORY OF OTHER INFECTIOUS AND PARASITIC DISEASES (4) History of diverticular abscess of colon Code(s): Z87.19 - PERSONAL HISTORY OF OTHER DISEASES OF THE DIGESTIVE SYSTEM
--- NOTE | 2018-07-26 11:32 | CONS ---
INFECTIOUS DISEASE CONSULTATION DATE OF CONSULTATION: DATE OF DICTATION: 07/26/2018 REQUESTED BY: Reva Sadler MD HISTORY OF PRESENT ILLNESS: This is a 78-year-old woman who is followed by Dr. Dumont as an outpatient. July 17, she underwent an outpatient biopsy of a left upper quadrant abdominal wall cyst mass with excision and was found to have adenocarcinoma consistent with metastatic carcinoma. She has a known right lower lobe lung mass, as well. She was scheduled for a neck biopsy and came to the emergency room complaining of severe pain and was admitted. She reports subjective fevers at home, though none have been documented in the hospital. I am asked to see her by Oncology as the plan is for port placement and the concern is for infection. She has been afebrile since admission with a normal white count. PAST MEDICAL HISTORY: Notable for diabetes, hypertension. She has a known right lower lobe lung mass. She is status post diverticular abscess in spring 2017 that was drained and she had followup CAT scan done on June 17, 2018, that shows no diverticulitis and no abscess. She in between had an admission for an E coli-ESBL UTI, as well. Past medical history includes osteopenia, hyperlipidemia, thyroid nodule, back pain. There is no history of any prior surgery. She is now admitted with neck pain and swelling. There is no nausea. There is no vomiting, no diarrhea, and no dysuria or cough. The records from Dr. Dumont's office were reviewed. She was treated for 10 days with clindamycin and Flagyl starting July 15 which she has completed. ALLERGIES: She has no known drug allergies. SOCIAL HISTORY: She is originally from [place]. She lives at home with her family. Former smoker. No history of substance or alcohol use. MEDICATIONS: As an outpatient include meclizine, Tramadol, Dexilant, Janumet, rosuvastatin, Drisdol, metformin, Protonix. REVIEW OF SYSTEMS: Currently, she has no complaint, other than the subjective fevers and severe pain. PHYSICAL EXAMINATION: General: She is resting comfortably. Vital Signs: Temperature is 98.6. She has had no fever since admission. Pulse is 83, blood pressure 124/57, respiratory rate is 18. She weighs 63 kg. HEENT: She is normocephalic. Her eyes are anicteric. Neck: She has large, probably 4-5-cm bilateral cervical lymph nodes in her supraclavicular fossa bilaterally. Heart: Regular rate and rhythm. Lungs: Have diminished breath sounds at the right base. Abdomen: Soft. It is nontender. She has good bowel sounds. She has a well healed scar at the site of the prior surgery. Extremities: Without edema. LABORATORIES: Notable for white count of 9.9, hemoglobin is 11.2, platelets are 547. BUN and creatinine are 6 and 0.5. Liver function tests are normal. Urinalysis is negative, and blood cultures are pending at 24 hours that are negative, and urine culture is no growth. IMAGING: She had an MRI of her brain that was unremarkable. There was [id number] volume loss, but no acute processes. She had a chest CT that was notable for a right upper lobe nodule and a large right lower lobe mass. She has CAT scans of her thoracic, lumbar and soft tissue of her neck; all of which are pending. ASSESSMENT: In summary, this is a 78-year-old woman with metastatic adenocarcinoma, right lower lobe lung mass, bilateral adenopathy, who is having a workup for her malignancy. Currently, she is afebrile with no signs of infection. PLAN: If her blood cultures remain negative and she remains afebrile, there is no objection to port placement. Multiple imaging studies have been done and results are pending. Would continue contact isolation, as per hospital policy. ERNIE DE JESUS M.D. [id number]
[2018-07-26] MEDS: MORPHINE SULFATE 2 MG/ML VIAL IVPUSH PRN (11:56)
--- NOTE | 2018-07-26 12:40 | PN ---
Progress Note (short form) - Note Progress Note: PULMONARY AWAKE/ALERT CALLED [facility] PATH DEPT: ABD WALL MASS ADENOCARCINOMA LIKELY LUNG ORIGIN/ SPECIAL STAINS PENDING CALLED RADIOLOGY AT [facility] : NO BONE SCAN DONE STILL COMPLAINING OF RIGHT SHOULDER PAIN VSS ANICTERIC DISTANT B/L BREATH SOUNDS S1S2 BS+ BANDAGE IN PLACE NO EDEMA LABS/MEDS/NOTES/IMAGES REVIEWED ADENO CA OF ABD WALL MASS LIKELY LUNG ORIGIN LARGE RIGHT CENTRAL MASS OF LUNG ON CT CHEST (NOT BIOPSIED) DM/HPL WOULD ORDER BONE SCAN TO R/O METS AWAIT SPECIAL STAINS DONE AT [facility] WILL LIKELY NEED CHEMOTX/CONSIDER PORT PLACEMENT Doug MONTGOMERY MD
--- NOTE | 2018-07-26 14:08 | PN ---
Physical Exam: (Nephrology) SUBJECTIVE: Patient seen and examined at bedside. No acute events overnight. No reported fevers. Endorsing back pain. OBJECTIVE: Vital Signs Period Temp Pulse Resp BP Sys/Paulson Pulse Ox Last 24 Hr 98 F-99.1 F 71-94 16-18 111-129/47-57 95-95 GENERAL: AAOx3, NAD HEAD: Atraumatic/Normocephalic EYES: EOMI Sclerla Clear ENT: MMM. NECK: B/L palpable masses lateral sides base of neck LUNGS: Decreased BS at bases HEART: RRR S1S2 ABDOMEN: Soft Nontender Nondistended EXTREMITIES: No CCE. Laboratory Results - last 24 hr 07/25/18 07/25/18 07/25/18 00:44 20:10 23:00 WBC RBC Hgb Hct MCV MCH MCHC RDW Plt Count MPV Absolute Neuts (auto) Neutrophils % Lymphocytes % Monocytes % Eosinophils % Basophils % Nucleated RBC % PTT (Actin FS) Sodium Potassium Chloride Carbon Dioxide Anion Gap BUN Creatinine Creat Clearance w eGFR POC Glucometer 144 Random Glucose Hemoglobin A1c % Calcium Total Bilirubin AST ALT Alkaline Phosphatase Total Protein Albumin TSH Urine Osmolality 182 L Ur Random Sodium 39 L Urine Creatinine 21.0 L 07/26/18 07/26/18 07/26/18 06:16 06:30 06:30 WBC 9.9 RBC 4.13 Hgb 11.2 Hct 34.5 MCV 83.6 MCH 27.1 MCHC 32.4 RDW 14.3 Plt Count 547 H MPV 6.4 L Absolute Neuts (auto) 6.8 Neutrophils % 69.3 Lymphocytes % 19.7 Monocytes % 8.1 Eosinophils % 2.4 Basophils % 0.5 Nucleated RBC % 0 PTT (Actin FS) Sodium Potassium Chloride Carbon Dioxide Anion Gap BUN Creatinine Creat Clearance w eGFR POC Glucometer 123 Random Glucose Hemoglobin A1c % 7.8 H Calcium Total Bilirubin AST ALT Alkaline Phosphatase Total Protein Albumin TSH Urine Osmolality Ur Random Sodium Urine Creatinine 07/26/18 07/26/18 07/26/18 06:30 06:30 11:46 WBC RBC Hgb Hct MCV MCH MCHC RDW Plt Count MPV Absolute Neuts (auto) Neutrophils % Lymphocytes % Monocytes % Eosinophils % Basophils % Nucleated RBC % PTT (Actin FS) 34.6 Sodium 134 L Potassium 4.9 Chloride 98 Carbon Dioxide 29 Anion Gap 6 L BUN 6 L Creatinine 0.5 L Creat Clearance w eGFR > 60 POC Glucometer 206 Random Glucose 116 H Hemoglobin A1c % Calcium 8.2 L Total Bilirubin 0.2 AST 9 L ALT 10 L Alkaline Phosphatase 74 Total Protein 6.2 L Albumin 2.5 L TSH 0.21 L Urine Osmolality Ur Random Sodium Urine Creatinine Active Medications Generic Name Dose Route Start Last Admin Trade Name Freq PRN Reason Stop Dose Admin Docusate Sodium 100 mg 07/25/18 06:00 07/26/18 13:47 Colace - PO 100 mg TID LYNN Administration Enoxaparin Sodium 40 mg 07/25/18 10:00 07/26/18 10:20 Lovenox - SQ 40 mg DAILY LYNN Administration Sodium Chloride 1,000 mls @ 42 mls/hr 07/25/18 02:45 07/26/18 07:14 Normal Saline - IV 42 mls/hr ASDIR LYNN Administration Insulin Aspart 1 vial 07/25/18 07:00 07/26/18 11:46 Novolog Vial Sliding Scale - SQ 4 unit ACHS LYNN Administration Protocol Morphine Sulfate 2 mg 07/25/18 02:50 07/26/18 11:56 Morphine Sulfate IVPUSH 2 mg Q4H PRN Administration PAIN LEVEL 6-10 Morphine Sulfate 15 mg 07/25/18 10:00 07/26/18 10:20 Ms Contin - PO 15 mg BID LYNN Administration Ondansetron HCl 4 mg 07/25/18 02:56 Zofran Injection IVPB Q6H PRN NAUSEA Senna 2 tab 07/25/18 22:00 07/25/18 22:59 Senna - PO 2 tab HS LYNN Administration ASSESSMENT/PLAN: 78 y/o lady with a significant past medical history of NIDDM, Diverticulitis, UTI, HLD, and C-Diff infection (February treated at [facility]) who presented to [facility] c/o severe neck pain and fevers. Impression 1. hyponatremia 2. lung cancer 3. dm 4. fever Plan: #Hyponatremia Sodium 134 today. Responding to I.V fluids. Findings not consistent with a SIADH diagnosis. -Urine Sodium 39 -Urine Osm 182 -Serum Osm 274 -TSH 0.21 -Cortisol pending -Repeat BMP in AM. -Continue I.V fluids #DM -Continue ISS #Lung malignancy -Hem/Onc on board -Plan for biopsy today. Visit type - Emergency Visit Emergency Visit: Yes ED Registration Date: 07/25/18 Care time: The patient presented to the Emergency Department on the above date and was hospitalized for further evaluation of their emergent condition. - New Patient This patient is new to me today: No - Critical Care Critical Care patient: No - Discharge Referral Referred to [facility] No
--- NOTE | 2018-07-26 15:04 | PN ---
Teaching Attending Note Name of Resident: Demian Parham (Nephrology) ATTENDING PHYSICIAN STATEMENT I saw and evaluated the patient. I reviewed the resident's note and discussed the case with the resident. I agree with the resident's findings and plan as documented. Renal Pt seen and examined at bedside. She is awake and alert. She appears more comfortable today than she was yesterday. Her appetite is improved. Current Medications Generic Name Dose Route Start Last Admin Trade Name Freq PRN Reason Stop Dose Admin Docusate Sodium 100 mg 07/25/18 06:00 07/26/18 13:47 Colace - PO 100 mg TID LYNN Administration Enoxaparin Sodium 40 mg 07/25/18 10:00 07/26/18 10:20 Lovenox - SQ 40 mg DAILY LYNN Administration Sodium Chloride 1,000 mls @ 42 mls/hr 07/25/18 02:45 07/26/18 07:14 Normal Saline - IV 42 mls/hr ASDIR LYNN Administration Insulin Aspart 1 vial 07/25/18 07:00 07/26/18 11:46 Novolog Vial Sliding Scale - SQ 4 unit ACHS LYNN Administration Protocol Morphine Sulfate 2 mg 07/25/18 02:50 07/26/18 11:56 Morphine Sulfate IVPUSH 2 mg Q4H PRN Administration PAIN LEVEL 6-10 Morphine Sulfate 15 mg 07/25/18 10:00 07/26/18 10:20 Ms Contin - PO 15 mg BID LYNN Administration Ondansetron HCl 4 mg 07/25/18 02:56 Zofran Injection IVPB Q6H PRN NAUSEA Senna 2 tab 07/25/18 22:00 07/25/18 22:59 Senna - PO 2 tab HS LYNN Administration Laboratory Tests 07/25/18 07/25/18 07/26/18 00:44 23:00 06:30 Sodium 134 L Random Glucose 116 H Urine Osmolality 182 L Ur Random Sodium 39 L Last Vital Signs Temp Pulse Resp BP Pulse Ox 98.6 F 83 18 124/57 L 95 07/26/18 07:00 07/26/18 07:00 07/26/18 07:00 07/26/18 07:00 07/25/18 16:46 Laboratory Tests 07/26/18 07/26/18 06:30 06:30 TSH 0.21 L Cortisol AM Sample Pending cardio s1s2 reg pulm clear GI soft skin neg rash neuro awake and alert Impression 1. hyponatremia 2. lung cancer 3. dm 4. fever Plan - sodium is improving - hyponatremia from decreased po intake - cont saline - repeat labs in am - check cortisol and tsh - will follow
--- NOTE | 2018-07-26 16:09 | PN ---
Progress Note, Physician Chief Complaint: R shoulder pain Metastatic Lung CA s/p biopsy abdominal cyst show metastatic adenocarcinoma most likely lung origin History of Present Illness: Previous notes and events reviewed awake and alert NAD s/p lymph node biopsy today blood culture and urine culture neg wbc nl - Current Medication List Current Medications: Active Medications Docusate Sodium (Colace -) 100 mg PO TID [facility] Last Admin: 07/26/18 13:47 Dose: 100 mg Enoxaparin Sodium (Lovenox -) 40 mg SQ DAILY [facility] Last Admin: 07/26/18 10:20 Dose: 40 mg Sodium Chloride (Normal Saline -) 1,000 mls @ 42 mls/hr IV ASDIR [facility] Last Admin: 07/26/18 07:14 Dose: 42 mls/hr Insulin Aspart (Novolog Vial Sliding Scale -) 1 vial SQ ACHS [facility]; Protocol Last Admin: 07/26/18 11:46 Dose: 4 unit Morphine Sulfate (Morphine Sulfate) 2 mg IVPUSH Q4H PRN PRN Reason: PAIN LEVEL 6-10 Last Admin: 07/26/18 11:56 Dose: 2 mg Morphine Sulfate (Ms Contin -) 15 mg PO BID [facility] Last Admin: 07/26/18 10:20 Dose: 15 mg Ondansetron HCl (Zofran Injection) 4 mg IVPB Q6H PRN PRN Reason: NAUSEA Senna (Senna -) 2 tab PO HS [facility] Last Admin: 07/25/18 22:59 Dose: 2 tab - Objective Vital Signs: Vital Signs Temperature 98 F 07/26/18 15:32 Pulse Rate 83 07/26/18 15:32 Respiratory Rate 17 07/26/18 15:32 Blood Pressure 122/55 L 07/26/18 15:32 O2 Sat by Pulse Oximetry (%) 95 07/26/18 09:00 Constitutional: Yes: No Distress, Calm Eyes: Yes: Conjunctiva Clear Neck: Yes: Supple Cardiovascular: Yes: Regular Rate and Rhythm Respiratory: Yes: Regular, CTA Bilaterally Gastrointestinal: Yes: Normal Bowel Sounds, Soft Musculoskeletal: Yes: WNL Extremities: Yes: WNL Edema: No Integumentary: Yes: WNL Wound/Incision: Yes: Dressing Dry and Intact Neurological: Yes: Alert, Oriented Psychiatric: Yes: Alert, Oriented Labs: CBC, BMP 07/26/18 06:30 07/26/18 06:30 INR, PTT INR 1.33 (0.83-1.09) H 07/24/18 21:00 <Krissy Masterson - Last Filed: 07/26/18 16:04> - Current Medication List Current Medications: Active Medications Docusate Sodium (Colace -) 100 mg PO TID [facility] Last Admin: 07/26/18 13:47 Dose: 100 mg Enoxaparin Sodium (Lovenox -) 40 mg SQ DAILY [facility] Last Admin: 07/26/18 10:20 Dose: 40 mg Folic Acid (Folic Acid -) 1 mg PO DAILY [facility] Sodium Chloride (Normal Saline -) 1,000 mls @ 42 mls/hr IV ASDIR [facility] Last Admin: 07/26/18 07:14 Dose: 42 mls/hr Insulin Aspart (Novolog Vial Sliding Scale -) 1 vial SQ ACHS [facility]; Protocol Last Admin: 07/26/18 11:46 Dose: 4 unit Morphine Sulfate (Morphine Sulfate) 2 mg IVPUSH Q4H PRN PRN Reason: PAIN LEVEL 6-10 Last Admin: 07/26/18 11:56 Dose: 2 mg Morphine Sulfate (Ms Contin -) 15 mg PO BID [facility] Last Admin: 07/26/18 10:20 Dose: 15 mg Ondansetron HCl (Zofran Injection) 4 mg IVPB Q6H PRN PRN Reason: NAUSEA Senna (Senna -) 2 tab PO HS [facility] Last Admin: 07/25/18 22:59 Dose: 2 tab - Objective Vital Signs: Vital Signs Temperature 98 F 07/26/18 15:32 Pulse Rate 83 07/26/18 15:32 Respiratory Rate 17 07/26/18 15:32 Blood Pressure 122/55 L 07/26/18 15:32 O2 Sat by Pulse Oximetry (%) 95 07/26/18 09:00 Labs: CBC, BMP 07/26/18 06:30 07/26/18 06:30 INR, PTT INR 1.33 (0.83-1.09) H 07/24/18 21:00 <Cesar Wade - Last Filed: 07/26/18 17:32> Problem List - Problems (1) Metastatic adenocarcinoma Code(s): C79.9 - SECONDARY MALIGNANT NEOPLASM OF UNSPECIFIED SITE (2) Neck mass Code(s): R22.1 - LOCALIZED SWELLING, MASS AND LUMP, NECK (3) Lung mass Code(s): R91.8 - OTHER NONSPECIFIC ABNORMAL FINDING OF LUNG FIELD (4) Diabetes Code(s): E11.9 - TYPE 2 DIABETES MELLITUS WITHOUT COMPLICATIONS Qualifiers: Diabetes mellitus type: type 2 (5) Electrolyte abnormality Code(s): E87.8 - OTH DISORDERS OF ELECTROLYTE AND FLUID BALANCE, NEC <Krissy Masterson - Last Filed: 07/26/18 16:04> Assessment/Plan -heme/onc on board, recommendations appreciated -Bone scan ordered -nephro on board, recommendation appreciated -ID on board-if remain afebrile and bld cx neg-port placement -cont IVF, will trend electrolytes -BGM, ISS -O2 via NC PRN, keep SpO2 >90% -cont contact preacaution -dvt ppx -fall precaution -pain control <Krissy Masterson - Last Filed: 07/26/18 16:04> I HAVE SEEN AND EXAMINED THE PATIENT AND AGREE WITH THE ABOVE NOTE <Cesar Wade - Last Filed: 07/26/18 17:32>
--- NOTE | 2018-07-26 18:29 | PN ---
Progress Note (short form) - Note Progress Note: Patient seen and examined S/P lymph node biopsy Temp down Last Vital Signs Temp Pulse Resp BP Pulse Ox 98 F 83 17 122/55 L 95 07/26/18 15:32 07/26/18 15:32 07/26/18 15:32 07/26/18 15:32 07/26/18 09:00 HEENT: ODETTE, EOM Intact Oropharynx: No thrush, No mucositis Neck: Supple Nodes:s/p right neck node biopsy ; left neck adenopathy- largest 4 x 3.5 Breasts: Without masses Cor: RSR, No murmurs, No gallops Lungs:scattered rhonchi Abd: Soft, Normal bowel sounds, No organomegaly Ext:No significant edema Skin: No rashes, Integument intact CBC, BMP 07/26/18 06:30 07/26/18 06:30 Current Medications Generic Name Dose Route Start Last Admin Trade Name Freq PRN Reason Stop Dose Admin Docusate Sodium 100 mg 07/25/18 06:00 07/26/18 13:47 Colace - PO 100 mg TID [facility] Administration Enoxaparin Sodium 40 mg 07/25/18 10:00 07/26/18 10:20 Lovenox - SQ 40 mg DAILY [facility] Administration Folic Acid 1 mg 07/27/18 10:00 Folic Acid - PO DAILY [facility] Sodium Chloride 1,000 mls @ 42 mls/hr 07/25/18 02:45 07/26/18 07:14 Normal Saline - IV 42 mls/hr ASDIR [facility] Administration Insulin Aspart 1 vial 07/25/18 07:00 07/26/18 17:55 Novolog Vial Sliding Scale - SQ Not Given ACHS [facility] Protocol Morphine Sulfate 2 mg 07/25/18 02:50 07/26/18 11:56 Morphine Sulfate IVPUSH 2 mg Q4H PRN Administration PAIN LEVEL 6-10 Morphine Sulfate 15 mg 07/25/18 10:00 07/26/18 10:20 Ms Contin - PO 15 mg BID [facility] Administration Ondansetron HCl 4 mg 07/25/18 02:56 Zofran Injection IVPB Q6H PRN NAUSEA Senna 2 tab 07/25/18 22:00 07/25/18 22:59 Senna - PO 2 tab HS [facility] Administration Impression: Adenoca of lung - s/p node biopsy Fever- improved For port placement if remains afebrile Lymph node for next gen sequencing.
[2018-07-26] MEDS: SENNOSIDES 8.6MG TABLET (FP) PO SCH (21:19)
[2018-07-27] MEDS: INSULIN SLIDING SCALE (NOVOLOG) 1 VIAL SQ SCH ×4 (06:31→22:34)
[2018-07-27] MEDS: DOCUSATE SODIUM 100 MG CAPSULE (FP) PO SCH ×3 (06:31→22:32)
[2018-07-27] MEDS: SODIUM CHLORIDE 1,000 ML IV SCH (06:37)
[2018-07-27 06:53] LABS: HEMATOCRIT 35.8 % (32.4-45.2); HEMOGLOBIN 11.4 GM/dL (10.7-15.3); MCH 26.9 pg (25.7-33.7); MCHC 31.9 g/dl (32.0-36.0); MEAN CELL VOLUME 84.3 fl (80-96); MEAN PLT VOLUME 6.5 fl (7.5-11.1); PLATELET COUNT 537 K/MM3 (134-434); RBC 4.25 M/mm3 (3.60-5.2); RDW 14.7 % (11.6-15.6); WHITE BLOOD COUNT 10.3 K/mm3 (4.0-10.0)
[2018-07-27 07:57] LABS: ALBUMIN 2.4 g/dl (3.4-5.0); ALK PHOS 72 U/L (45-117); ANION GAP 7 MMOL/L (8-16); BILIRUBIN,TOTAL 0.4 mg/dL (0.2-1); BLOOD UREA NITROGEN 4 mg/dL (7-18); CALCIUM 8.4 mg/dL (8.5-10.1); CHLORIDE 99 mmol/L (98-107); CO2 29 mmol/L (21-32); CREATININE 0.4 mg/dL (0.55-1.3); GLUCOSE,RANDOM 116 mg/dL (74-106); SGOT/AST 9 U/L (15-37); SGPT/ALT 11 U/L (13-61); SODIUM 134 mmol/L (136-145); TOT PROT 6.2 g/dl (6.4-8.2)
[2018-07-27] MEDS: FOLIC ACID 1 MG TABLET (FP) PO SCH (09:47)
[2018-07-27] MEDS: ENOXAPARIN NA (PORCINE) 40 MG/0.4 ML DISP.SYRIN SQ SCH (09:47)
[2018-07-27] MEDS: morphine SO4 SUSTAINED ACTING 15 MG TABLET.SA PO SCH ×2 (09:47→22:32)
--- NOTE | 2018-07-27 10:49 | PN ---
Progress Note, Physician Chief Complaint: AWAKE ALERT CHART AND RECORDS REVIEWED PATIENT DENIES SOB/CP AT THIS TIME - Current Medication List Current Medications: Active Medications Docusate Sodium (Colace -) 100 mg PO TID [facility] Last Admin: 07/27/18 06:31 Dose: 100 mg Enoxaparin Sodium (Lovenox -) 40 mg SQ DAILY [facility] Last Admin: 07/27/18 09:47 Dose: 40 mg Folic Acid (Folic Acid -) 1 mg PO DAILY [facility] Last Admin: 07/27/18 09:47 Dose: 1 mg Sodium Chloride (Normal Saline -) 1,000 mls @ 42 mls/hr IV ASDIR [facility] Last Admin: 07/27/18 06:37 Dose: 42 mls/hr Insulin Aspart (Novolog Vial Sliding Scale -) 1 vial SQ ACHS [facility]; Protocol Last Admin: 07/27/18 06:31 Dose: Not Given Morphine Sulfate (Morphine Sulfate) 2 mg IVPUSH Q4H PRN PRN Reason: PAIN LEVEL 6-10 Last Admin: 07/26/18 11:56 Dose: 2 mg Morphine Sulfate (Ms Contin -) 15 mg PO BID [facility] Last Admin: 07/27/18 09:47 Dose: 15 mg Ondansetron HCl (Zofran Injection) 4 mg IVPB Q6H PRN PRN Reason: NAUSEA Senna (Senna -) 2 tab PO HS [facility] Last Admin: 07/26/18 21:19 Dose: 2 tab - Objective Vital Signs: Vital Signs Temperature 98.3 F 07/27/18 06:30 Pulse Rate 80 07/27/18 06:30 Respiratory Rate 20 07/27/18 06:30 Blood Pressure 100/60 07/27/18 06:30 O2 Sat by Pulse Oximetry (%) 95 07/26/18 21:00 Constitutional: Yes: Mild Distress Eyes: Yes: WNL HENT: Yes: WNL Neck: Yes: WNL Cardiovascular: Yes: WNL Respiratory: Yes: WNL Gastrointestinal: Yes: Distention Genitourinary: Yes: WNL Musculoskeletal: Yes: Back Pain, Muscle Weakness Edema: No Peripheral Pulses WNL: Yes Integumentary: Yes: WNL Wound/Incision: Yes: Clean/Dry Neurological: Yes: WNL ...Motor Strength: WNL Psychiatric: Yes: WNL Labs: CBC, BMP 07/27/18 06:30 07/27/18 06:30 INR, PTT INR 1.33 (0.83-1.09) H 07/24/18 21:00 Problem List - Problems (1) Metastatic adenocarcinoma Code(s): C79.9 - SECONDARY MALIGNANT NEOPLASM OF UNSPECIFIED SITE (2) Neck mass Code(s): R22.1 - LOCALIZED SWELLING, MASS AND LUMP, NECK (3) Abdominal fluid collection Code(s): R18.8 - OTHER ASCITES (4) Abdominal pain Code(s): R10.9 - UNSPECIFIED ABDOMINAL PAIN Qualifiers: Abdominal location: unspecified location Qualified Code(s): R10.9 - Unspecified abdominal pain (5) Diabetes Code(s): E11.9 - TYPE 2 DIABETES MELLITUS WITHOUT COMPLICATIONS Qualifiers: Diabetes mellitus type: type 2 (6) Electrolyte abnormality Code(s): E87.8 - OTH DISORDERS OF ELECTROLYTE AND FLUID BALANCE, NEC (7) Low back pain Code(s): M54.5 - LOW BACK PAIN Qualifiers: Chronicity: chronic Back pain laterality: bilateral Sciatica presence: without sciatica Qualified Code(s): M54.5 - Low back pain; G89.29 - Other chronic pain Assessment/Plan PATIENT SEEN AND EXAMINED EVLA ETIENNE TODAY CONTINUE IVF LABS IMPROVING NA+ =134 DVT PROPHYLAXIS PT EVAL OOB TO CHAIR ONC F/U FOR TREATMENT PAIN CONTROL
--- NOTE | 2018-07-27 11:19 | PN ---
Progress Note (short form) - Note Progress Note: Denies CP or SOB. No acute events overnight. No hemoptysis. Intake & Output 07/24/18 07/25/18 07/26/18 07/27/18 23:59 23:59 23:59 23:59 Intake Total 468 1074 Output Total 300 1400 Balance 468 774 -1400 Weight 138 lb 138 lb 139 lb 6.4 oz 135 lb 1 oz Last Vital Signs Temp Pulse Resp BP Pulse Ox 98.3 F 84 18 112/60 95 07/27/18 10:00 07/27/18 10:00 07/27/18 10:00 07/27/18 10:00 07/26/18 21:00 Active Medications Docusate Sodium (Colace -) 100 mg PO TID [facility] Last Admin: 07/27/18 06:31 Dose: 100 mg Enoxaparin Sodium (Lovenox -) 40 mg SQ DAILY [facility] Last Admin: 07/27/18 09:47 Dose: 40 mg Folic Acid (Folic Acid -) 1 mg PO DAILY [facility] Last Admin: 07/27/18 09:47 Dose: 1 mg Sodium Chloride (Normal Saline -) 1,000 mls @ 42 mls/hr IV ASDIR [facility] Last Admin: 07/27/18 06:37 Dose: 42 mls/hr Insulin Aspart (Novolog Vial Sliding Scale -) 1 vial SQ ACHS [facility]; Protocol Last Admin: 07/27/18 06:31 Dose: Not Given Morphine Sulfate (Morphine Sulfate) 2 mg IVPUSH Q4H PRN PRN Reason: PAIN LEVEL 6-10 Last Admin: 07/26/18 11:56 Dose: 2 mg Morphine Sulfate (Ms Contin -) 15 mg PO BID [facility] Last Admin: 07/27/18 09:47 Dose: 15 mg Ondansetron HCl (Zofran Injection) 4 mg IVPB Q6H PRN PRN Reason: NAUSEA Senna (Senna -) 2 tab PO HS [facility] Last Admin: 07/26/18 21:19 Dose: 2 tab Constitutional: Yes: NAD Eyes: Yes: Conjunctiva Clear, EOM Intact HENT: Yes: Atraumatic, Normocephalic Neck: Yes: Lymphadenopathy Cardiovascular: Yes: Regular Rate and Rhythm Respiratory: Yes: Diminished. No: Wheezes ...Clubbing: No Gastrointestinal: Yes: Normal Bowel Sounds, Soft. No: Tenderness Edema: No Neurological: Yes: Alert, Oriented Labs: Laboratory Results - last 24 hr 07/25/18 07/25/18 07/25/18 00:44 00:55 23:00 WBC RBC Hgb Hct MCV MCH MCHC RDW Plt Count MPV Sodium Potassium Chloride Carbon Dioxide Anion Gap BUN Creatinine Creat Clearance w eGFR POC Glucometer Random Glucose Calcium Total Bilirubin AST ALT Alkaline Phosphatase Total Protein Albumin Cortisol AM Sample Urine Osmolality 182 L Ur Random Sodium Cancelled 39 L Urine Creatinine 21.0 L 07/26/18 07/26/18 07/26/18 06:30 11:46 17:54 WBC RBC Hgb Hct MCV MCH MCHC RDW Plt Count MPV Sodium Potassium Chloride Carbon Dioxide Anion Gap BUN Creatinine Creat Clearance w eGFR POC Glucometer 206 137 Random Glucose Calcium Total Bilirubin AST ALT Alkaline Phosphatase Total Protein Albumin Cortisol AM Sample 16.6 Urine Osmolality Ur Random Sodium Urine Creatinine 07/26/18 07/27/18 07/27/18 21:17 06:30 06:30 WBC 10.3 H RBC 4.25 Hgb 11.4 Hct 35.8 MCV 84.3 MCH 26.9 MCHC 31.9 L RDW 14.7 Plt Count 537 H MPV 6.5 L Sodium 134 L Potassium 5.0 Chloride 99 Carbon Dioxide 29 Anion Gap 7 L BUN 4 L Creatinine 0.4 L Creat Clearance w eGFR > 60 POC Glucometer 194 Random Glucose 116 H Calcium 8.4 L Total Bilirubin 0.4 AST 9 L ALT 11 L Alkaline Phosphatase 72 Total Protein 6.2 L Albumin 2.4 L Cortisol AM Sample Urine Osmolality Ur Random Sodium Urine Creatinine 07/27/18 06:30 WBC RBC Hgb Hct MCV MCH MCHC RDW Plt Count MPV Sodium Potassium Chloride Carbon Dioxide Anion Gap BUN Creatinine Creat Clearance w eGFR POC Glucometer 126 Random Glucose Calcium Total Bilirubin AST ALT Alkaline Phosphatase Total Protein Albumin Cortisol AM Sample Urine Osmolality Ur Random Sodium Urine Creatinine Assessment/Plan Metastatic Adenocarcinoma: lung origin Intractable Pain DM Hyperlipidemia Recent Abdominal Wall Abscess - Pain control - Oncology evaluation noted - Bone scan - O2 as needed to keep Spo2 >90% - inhaled bronchodilators - DVT prophylaxis Dr Connors
[2018-07-27] MEDS: MORPHINE SULFATE 2 MG/ML VIAL IVPUSH PRN ×2 (12:35→19:29)
--- NOTE | 2018-07-27 19:47 | PN ---
Progress Note (short form) - Note Progress Note: hyponatremia stable at 134 Problems 1. hyponatremia 2. lung cancer 3. dm 4. fever Current Medications Docusate Sodium (Colace -) 100 mg PO TID [facility] Last Admin: 07/27/18 22:32 Dose: 100 mg Enoxaparin Sodium (Lovenox -) 40 mg SQ DAILY [facility] Last Admin: 07/27/18 09:47 Dose: 40 mg Folic Acid (Folic Acid -) 1 mg PO DAILY [facility] Last Admin: 07/27/18 09:47 Dose: 1 mg Sodium Chloride (Normal Saline -) 1,000 mls @ 42 mls/hr IV ASDIR [facility] Last Admin: 07/27/18 06:37 Dose: 42 mls/hr Insulin Aspart (Novolog Vial Sliding Scale -) 1 vial SQ ACHS [facility]; Protocol Last Admin: 07/27/18 22:34 Dose: Not Given Morphine Sulfate (Morphine Sulfate) 2 mg IVPUSH Q4H PRN PRN Reason: PAIN LEVEL 6-10 Last Admin: 07/27/18 19:29 Dose: 2 mg Morphine Sulfate (Ms Contin -) 15 mg PO BID [facility] Last Admin: 07/27/18 22:32 Dose: 15 mg Ondansetron HCl (Zofran Injection) 4 mg IVPB Q6H PRN PRN Reason: NAUSEA Senna (Senna -) 2 tab PO HS [facility] Last Admin: 07/27/18 22:33 Dose: 2 tab Last Vital Signs Temp Pulse Resp BP Pulse Ox 98.8 F 87 20 116/62 95 07/27/18 17:35 07/27/18 17:35 07/27/18 17:35 07/27/18 17:35 07/27/18 20:24 Lungs clear Heart reg Abd soft nontender ext no edema CBC, BMP 07/27/18 06:30 07/27/18 06:30 IMP- sodium is improving - hyponatremia from decreased po intake Plan- cont saline - repeat labs in am - check cortisol and tsh - will follow
[2018-07-27] MEDS: SENNOSIDES 8.6MG TABLET (FP) PO SCH (22:33)
[2018-07-28] MEDS: SODIUM CHLORIDE 1,000 ML IV SCH ×2 (02:50→05:54)
[2018-07-28] MEDS: DOCUSATE SODIUM 100 MG CAPSULE (FP) PO SCH ×3 (05:52→21:16)
[2018-07-28] MEDS: INSULIN SLIDING SCALE (NOVOLOG) 1 VIAL SQ SCH ×4 (06:05→21:16)
[2018-07-28] MEDS: morphine SO4 SUSTAINED ACTING 15 MG TABLET.SA PO SCH ×2 (09:46→21:15)
[2018-07-28] MEDS: ENOXAPARIN NA (PORCINE) 40 MG/0.4 ML DISP.SYRIN SQ SCH (09:46)
[2018-07-28] MEDS: FOLIC ACID 1 MG TABLET (FP) PO SCH (09:46)
--- NOTE | 2018-07-28 11:05 | PN ---
Progress Note (short form) - Note Progress Note: Denies CP or SOB. No acute events overnight. No hemoptysis. Intake & Output 07/25/18 07/26/18 07/27/18 07/28/18 23:59 23:59 23:59 23:59 Intake Total 468 1074 1630 Output Total 300 3100 700 Balance 468 254 -9540 -700 Weight 138 lb 139 lb 6.4 oz 135 lb 1 oz 137 lb 4 oz Last Vital Signs Temp Pulse Resp BP Pulse Ox 98.4 F 95 H 20 135/80 95 07/28/18 10:00 07/28/18 10:00 07/28/18 10:00 07/28/18 10:00 07/27/18 20:24 Active Medications Docusate Sodium (Colace -) 100 mg PO TID [facility] Last Admin: 07/28/18 05:52 Dose: 100 mg Enoxaparin Sodium (Lovenox -) 40 mg SQ DAILY [facility] Last Admin: 07/28/18 09:46 Dose: 40 mg Folic Acid (Folic Acid -) 1 mg PO DAILY [facility] Last Admin: 07/28/18 09:46 Dose: 1 mg Sodium Chloride (Normal Saline -) 1,000 mls @ 42 mls/hr IV ASDIR [facility] Last Admin: 07/28/18 05:54 Dose: 42 mls/hr Insulin Aspart (Novolog Vial Sliding Scale -) 1 vial SQ ACHS [facility]; Protocol Last Admin: 07/28/18 06:05 Dose: Not Given Morphine Sulfate (Morphine Sulfate) 2 mg IVPUSH Q4H PRN PRN Reason: PAIN LEVEL 6-10 Last Admin: 07/27/18 19:29 Dose: 2 mg Morphine Sulfate (Ms Contin -) 15 mg PO BID [facility] Last Admin: 07/28/18 09:46 Dose: 15 mg Ondansetron HCl (Zofran Injection) 4 mg IVPB Q6H PRN PRN Reason: NAUSEA Senna (Senna -) 2 tab PO HS [facility] Last Admin: 07/27/18 22:33 Dose: 2 tab Constitutional: Yes: NAD Eyes: Yes: Conjunctiva Clear, EOM Intact HENT: Yes: Atraumatic, Normocephalic Neck: Yes: Lymphadenopathy Cardiovascular: Yes: Regular Rate and Rhythm Respiratory: Yes: Diminished. No: Wheezes ...Clubbing: No Gastrointestinal: Yes: Normal Bowel Sounds, Soft. No: Tenderness Edema: No Neurological: Yes: Alert, Oriented Labs: Laboratory Results - last 24 hr 07/27/18 07/27/18 07/27/18 12:19 17:46 20:39 POC Glucometer 128 133 143 07/28/18 05:51 POC Glucometer 114 Assessment/Plan Metastatic Adenocarcinoma: lung origin Intractable Pain DM Hyperlipidemia Recent Abdominal Wall Abscess - Pain control - Oncology evaluation noted - Bone scan - O2 as needed to keep Spo2 >90% - inhaled bronchodilators - DVT prophylaxis Dr Connors
--- NOTE | 2018-07-28 12:05 | PN ---
Progress Note, Physician Chief Complaint: C/O ABDOMINAL LLQ PAIN NO N/V NO FEVERS +APPETITE - Current Medication List Current Medications: Active Medications Docusate Sodium (Colace -) 100 mg PO TID [facility] Last Admin: 07/28/18 05:52 Dose: 100 mg Enoxaparin Sodium (Lovenox -) 40 mg SQ DAILY [facility] Last Admin: 07/28/18 09:46 Dose: 40 mg Folic Acid (Folic Acid -) 1 mg PO DAILY [facility] Last Admin: 07/28/18 09:46 Dose: 1 mg Sodium Chloride (Normal Saline -) 1,000 mls @ 42 mls/hr IV ASDIR [facility] Last Admin: 07/28/18 05:54 Dose: 42 mls/hr Insulin Aspart (Novolog Vial Sliding Scale -) 1 vial SQ ACHS [facility]; Protocol Last Admin: 07/28/18 06:05 Dose: Not Given Morphine Sulfate (Morphine Sulfate) 2 mg IVPUSH Q4H PRN PRN Reason: PAIN LEVEL 6-10 Last Admin: 07/27/18 19:29 Dose: 2 mg Morphine Sulfate (Ms Contin -) 15 mg PO BID [facility] Last Admin: 07/28/18 09:46 Dose: 15 mg Ondansetron HCl (Zofran Injection) 4 mg IVPB Q6H PRN PRN Reason: NAUSEA Senna (Senna -) 2 tab PO HS [facility] Last Admin: 07/27/18 22:33 Dose: 2 tab - Objective Vital Signs: Vital Signs Temperature 98.4 F 07/28/18 10:00 Pulse Rate 95 H 07/28/18 10:00 Respiratory Rate 20 07/28/18 10:00 Blood Pressure 135/80 07/28/18 10:00 O2 Sat by Pulse Oximetry (%) 95 07/27/18 20:24 Constitutional: Yes: Mild Distress Eyes: Yes: WNL HENT: Yes: WNL Neck: Yes: WNL Cardiovascular: Yes: WNL Respiratory: Yes: WNL Gastrointestinal: Yes: Tenderness (LLQ TENDERNESS) Genitourinary: Yes: WNL Musculoskeletal: Yes: WNL Extremities: Yes: WNL Edema: No Peripheral Pulses WNL: No Integumentary: Yes: WNL Wound/Incision: Yes: Clean/Dry Neurological: Yes: Pre-Existing Deficit ...Motor Strength: LLE, RLE Psychiatric: Yes: WNL Labs: INR, PTT INR 1.33 (0.83-1.09) H 07/24/18 21:00 Problem List - Problems (1) Metastatic adenocarcinoma Code(s): C79.9 - SECONDARY MALIGNANT NEOPLASM OF UNSPECIFIED SITE (2) Neck mass Code(s): R22.1 - LOCALIZED SWELLING, MASS AND LUMP, NECK (3) Abdominal fluid collection Code(s): R18.8 - OTHER ASCITES (4) Abdominal pain Code(s): R10.9 - UNSPECIFIED ABDOMINAL PAIN Qualifiers: Abdominal location: unspecified location Qualified Code(s): R10.9 - Unspecified abdominal pain (5) Diabetes Code(s): E11.9 - TYPE 2 DIABETES MELLITUS WITHOUT COMPLICATIONS Qualifiers: Diabetes mellitus type: type 2 (6) Electrolyte abnormality Code(s): E87.8 - OTH DISORDERS OF ELECTROLYTE AND FLUID BALANCE, NEC (7) Low back pain Code(s): M54.5 - LOW BACK PAIN Qualifiers: Chronicity: chronic Back pain laterality: bilateral Sciatica presence: without sciatica Qualified Code(s): M54.5 - Low back pain; G89.29 - Other chronic pain Assessment/Plan MONITOR LLQ PAIN NO ACUTE SIGNS OF SEPSIS OR DIVERTICULAR DISEASE ORDER FUA/KUB BEDSIDE R/O RENAL COLIC MEHTA INSERTED ALREADY POSSIBLE PAIN FROM THAT. WILL CHECK LABS DENIES N/V TOLERATING MEALS
[2018-07-28 12:32] LABS: ANION GAP 5 MMOL/L (8-16); BLOOD UREA NITROGEN 4 mg/dL (7-18); CALCIUM 8.1 mg/dL (8.5-10.1); CHLORIDE 100 mmol/L (98-107); CO2 30 mmol/L (21-32); CREATININE 0.4 mg/dL (0.55-1.3); GLUCOSE,RANDOM 108 mg/dL (74-106); POTASSIUM 4.4 mmol/L (3.5-5.1); SODIUM 135 mmol/L (136-145)
[2018-07-28 13:27] LABS: HEMATOCRIT 33.2 % (32.4-45.2); HEMOGLOBIN 10.6 GM/dL (10.7-15.3); MCH 26.8 pg (25.7-33.7); MCHC 31.9 g/dl (32.0-36.0); MEAN CELL VOLUME 83.9 fl (80-96); MEAN PLT VOLUME 6.4 fl (7.5-11.1); PLATELET COUNT 503 K/MM3 (134-434); RBC 3.96 M/mm3 (3.60-5.2); RDW 14.3 % (11.6-15.6); WHITE BLOOD COUNT 9.4 K/mm3 (4.0-10.0)
[2018-07-28] MEDS: SENNOSIDES 8.6MG TABLET (FP) PO SCH (21:16)
--- NOTE | 2018-07-28 23:24 | PN ---
Progress Note (short form) - Note Progress Note: hyponatremia stable at 134 Problems 1. hyponatremia 2. lung cancer 3. dm 4. fever Current Medications Docusate Sodium (Colace -) 100 mg PO TID [facility] Last Admin: 07/28/18 21:16 Dose: 100 mg Enoxaparin Sodium (Lovenox -) 40 mg SQ DAILY [facility] Last Admin: 07/28/18 09:46 Dose: 40 mg Folic Acid (Folic Acid -) 1 mg PO DAILY [facility] Last Admin: 07/28/18 09:46 Dose: 1 mg Sodium Chloride (Normal Saline -) 1,000 mls @ 42 mls/hr IV ASDIR [facility] Last Admin: 07/28/18 05:54 Dose: 42 mls/hr Insulin Aspart (Novolog Vial Sliding Scale -) 1 vial SQ ACHS [facility]; Protocol Last Admin: 07/28/18 21:16 Dose: Not Given Morphine Sulfate (Ms Contin -) 15 mg PO BID [facility] Last Admin: 07/28/18 21:15 Dose: 15 mg Ondansetron HCl (Zofran Injection) 4 mg IVPB Q6H PRN PRN Reason: NAUSEA Senna (Senna -) 2 tab PO HS [facility] Last Admin: 07/28/18 21:16 Dose: 2 tab Last Vital Signs Temp Pulse Resp BP Pulse Ox 98.1 F 90 18 130/68 95 07/28/18 21:37 07/28/18 21:37 07/28/18 21:37 07/28/18 21:37 07/28/18 09:00 Lungs clear Heart reg Abd soft nontender ext no edema CBC, BMP 07/28/18 06:00 07/28/18 06:00 CBC, BMP IMP- sodium is improving Na 135 from 134 yesterday - hyponatremia from decreased po intake Plan- cont saline - repeat labs in am - check cortisol and tsh - will follow
[2018-07-29] MEDS: SODIUM CHLORIDE 1,000 ML IV SCH ×2 (02:45→10:34)
[2018-07-29] MEDS: DOCUSATE SODIUM 100 MG CAPSULE (FP) PO SCH ×3 (05:45→22:08)
[2018-07-29] MEDS: INSULIN SLIDING SCALE (NOVOLOG) 1 VIAL SQ SCH ×4 (06:18→22:08)
[2018-07-29 08:23] LABS: ALBUMIN 2.2 g/dl (3.4-5.0); ALK PHOS 67 U/L (45-117); ANION GAP 7 MMOL/L (8-16); BILIRUBIN,TOTAL 0.3 mg/dL (0.2-1); BLOOD UREA NITROGEN 4 mg/dL (7-18); CALCIUM 8.3 mg/dL (8.5-10.1); CHLORIDE 100 mmol/L (98-107); CO2 30 mmol/L (21-32); CREATININE 0.5 mg/dL (0.55-1.3); GLUCOSE,RANDOM 93 mg/dL (74-106); POTASSIUM 4.6 mmol/L (3.5-5.1); SGOT/AST 11 U/L (15-37); SGPT/ALT 11 U/L (13-61); SODIUM 137 mmol/L (136-145)
[2018-07-29 08:46] LABS: HEMATOCRIT 32.7 % (32.4-45.2); HEMOGLOBIN 11.4 GM/dL (10.7-15.3); MCHC 34.8 g/dl (32.0-36.0); MEAN CELL VOLUME 83.5 fl (80-96); MEAN PLT VOLUME 6.6 fl (7.5-11.1); PLATELET COUNT 533 K/MM3 (134-434); RBC 3.91 M/mm3 (3.60-5.2); RDW 14.5 % (11.6-15.6); WHITE BLOOD COUNT 8.8 K/mm3 (4.0-10.0)
--- NOTE | 2018-07-29 10:16 | PN ---
Progress Note (short form) - Note Progress Note: Denies CP or SOB. No acute events overnight. No hemoptysis. Intake & Output 07/26/18 07/27/18 07/28/18 07/29/18 23:59 23:59 23:59 23:59 Intake Total 1074 1630 630 294 Output Total 300 3100 3000 Balance 647 -1121 -1223 294 Weight 139 lb 6.4 oz 135 lb 1 oz 137 lb 4 oz 142 lb 12.8 oz Last Vital Signs Temp Pulse Resp BP Pulse Ox 98.0 F 72 18 107/47 L 95 07/29/18 06:00 07/29/18 06:00 07/29/18 06:00 07/29/18 06:00 07/28/18 21:00 Active Medications Docusate Sodium (Colace -) 100 mg PO TID [facility] Last Admin: 07/29/18 05:45 Dose: 100 mg Enoxaparin Sodium (Lovenox -) 40 mg SQ DAILY [facility] Last Admin: 07/28/18 09:46 Dose: 40 mg Folic Acid (Folic Acid -) 1 mg PO DAILY [facility] Last Admin: 07/28/18 09:46 Dose: 1 mg Sodium Chloride (Normal Saline -) 1,000 mls @ 42 mls/hr IV ASDIR [facility] Last Admin: 07/29/18 02:45 Dose: Not Given Insulin Aspart (Novolog Vial Sliding Scale -) 1 vial SQ ACHS [facility]; Protocol Last Admin: 07/29/18 06:18 Dose: Not Given Morphine Sulfate (Ms Contin -) 15 mg PO BID [facility] Last Admin: 07/28/18 21:15 Dose: 15 mg Ondansetron HCl (Zofran Injection) 4 mg IVPB Q6H PRN PRN Reason: NAUSEA Senna (Senna -) 2 tab PO HS [facility] Last Admin: 07/28/18 21:16 Dose: 2 tab Constitutional: Yes: NAD Eyes: Yes: Conjunctiva Clear, EOM Intact HENT: Yes: Atraumatic, Normocephalic Neck: Yes: Lymphadenopathy Cardiovascular: Yes: Regular Rate and Rhythm Respiratory: Yes: Diminished. No: Wheezes ...Clubbing: No Gastrointestinal: Yes: Normal Bowel Sounds, Soft. No: Tenderness Edema: No Neurological: Yes: Alert, Oriented Labs: Laboratory Results - last 24 hr 0107/28/18 07/28/18 06:00 06:00 11:58 WBC 9.4 RBC 3.96 Hgb 10.6 L Hct 33.2 MCV 83.9 MCH 26.8 MCHC 31.9 L RDW 14.3 Plt Count 503 H MPV 6.4 L Sodium 135 L Potassium 4.4 Chloride 100 Carbon Dioxide 30 Anion Gap 5 L BUN 4 L Creatinine 0.4 L Creat Clearance w eGFR > 60 POC Glucometer 134 Random Glucose 108 H Calcium 8.1 L Total Bilirubin AST ALT Alkaline Phosphatase Total Protein Albumin 07/28/18 07/28/18 07/29/18 16:56 20:50 05:20 WBC RBC Hgb Hct MCV MCH MCHC RDW Plt Count MPV Sodium Potassium Chloride Carbon Dioxide Anion Gap BUN Creatinine Creat Clearance w eGFR POC Glucometer 191 104 116 Random Glucose Calcium Total Bilirubin AST ALT Alkaline Phosphatase Total Protein Albumin 07/29/18 07/29/18 06:00 06:00 WBC 8.8 RBC 3.91 Hgb 11.4 Hct 32.7 MCV 83.5 MCH 29.0 MCHC 34.8 RDW 14.5 Plt Count 533 H MPV 6.6 L Sodium 137 Potassium 4.6 Chloride 100 Carbon Dioxide 30 Anion Gap 7 L BUN 4 L Creatinine 0.5 L Creat Clearance w eGFR > 60 POC Glucometer Random Glucose 93 Calcium 8.3 L Total Bilirubin 0.3 AST 11 L ALT 11 L Alkaline Phosphatase 67 Total Protein 6.0 L Albumin 2.2 L Assessment/Plan Metastatic Adenocarcinoma: lung origin Intractable Pain DM Hyperlipidemia Recent Abdominal Wall Abscess - Pain control - Bone scan - O2 as needed to keep Spo2 >90% - inhaled bronchodilators - DVT prophylaxis Dr Connors
[2018-07-29] MEDS ORDERED: PT OWN MED DRAWER 7, Y5N ONE (10:27)
[2018-07-29] MEDS: morphine SO4 SUSTAINED ACTING 15 MG TABLET.SA PO SCH ×2 (10:33→22:07)
[2018-07-29] MEDS: FOLIC ACID 1 MG TABLET (FP) PO SCH (10:33)
[2018-07-29] MEDS: ENOXAPARIN NA (PORCINE) 40 MG/0.4 ML DISP.SYRIN SQ SCH (10:34)
--- NOTE | 2018-07-29 11:07 | CONSULT ---
- Consultation REQUESTING PROVIDER: CONSULT REQUEST: We have been asked to surgically evaluate this patient for portacath placement. PCP:Reva Sadler HISTORY OF PRESENT ILLNESS: 78 y/o F w/ PMHx NIDDM, Diverticulitis, HLD, and C- Diff infection (February treated at [facility]), recent diagnosis of lung mets now admitted after presenting w/ c/o severe neck pain. Vascular consulted for portacath placement. Denies prior placement of chest catheters. PMHx: as above PSHx: unknown Home Medications Medication Instructions Recorded Metronidazole 500 mg PO TID 07/14/18 Clindamycin [Cleocin -] 300 mg PO Q8H 07/25/18 Meclizine HCl [Antivert -] 12.5 mg PO BID PRN 07/25/18 Metformin HCl [Metformin HCl ER] 500 mg PO DAILY 07/25/18 Omeprazole 40 mg PO DAILY 07/25/18 Rosuvastatin [Crestor -] 10 mg PO DAILY 07/25/18 Tramadol HCl [Ultram] 50 mg PO QID PRN 07/25/18 Allergies Allergy/AdvReac Type Severity Reaction Status Date / Time No Known Allergies Allergy Verified 07/24/18 16:51 PHYSICAL EXAM: GENERAL: Awake, alert, and fully oriented, in no acute distress. HEAD: Normal with no signs of trauma. Neck: Lymph node biopsy site with dressing in place, c/d/i. Vasc: palpable radial/ulnar b/l Vital Signs Temperature 98.0 F 07/29/18 06:00 Pulse Rate 72 07/29/18 06:00 Respiratory Rate 18 07/29/18 06:00 Blood Pressure 107/47 L 07/29/18 06:00 O2 Sat by Pulse Oximetry (%) 95 07/28/18 21:00 Lab Results WBC 8.8 K/mm3 (4.0-10.0) 07/29/18 06:00 RBC 3.91 M/mm3 (3.60-5.2) 07/29/18 06:00 Hgb 11.4 GM/dL (10.7-15.3) 07/29/18 06:00 Hct 32.7 % (32.4-45.2) 07/29/18 06:00 MCV 83.5 fl (80-96) 07/29/18 06:00 MCHC 34.8 g/dl (32.0-36.0) 07/29/18 06:00 RDW 14.5 % (11.6-15.6) 07/29/18 06:00 Plt Count 533 K/MM3 (134-434) H 07/29/18 06:00 Sodium 137 mmol/L (136-145) 07/29/18 06:00 Potassium 4.6 mmol/L (3.5-5.1) 07/29/18 06:00 Chloride 100 mmol/L (98-107) 07/29/18 06:00 Carbon Dioxide 30 mmol/L (21-32) 07/29/18 06:00 Anion Gap 7 MMOL/L (8-16) L 07/29/18 06:00 BUN 4 mg/dL (7-18) L 07/29/18 06:00 Creatinine 0.5 mg/dL (0.55-1.3) L 07/29/18 06:00 Random Glucose 93 mg/dL (74-106) 07/29/18 06:00 Calcium 8.3 mg/dL (8.5-10.1) L 07/29/18 06:00 INR 1.33 (0.83-1.09) H 07/24/18 21:00 A/P: 78 y/o F w/ PMHx NIDDM, Diverticulitis, HLD, and C-Diff infection ([place] treated at [facility]), recent diagnosis of lung mets now admitted after presenting with c/o severe neck pain. Vascular consulted for portacath placement. On OR schedule for tomorrow after 2pm with Dr Bird for Portacath placement for chemotherapy NPO after midnight Consent per attending Above d/w attending Dr Bird
[2018-07-29] MEDS: POLYETHYLENE GLYCOL 3350 119 GM BTL PO SCH (11:46)
--- NOTE | 2018-07-29 12:11 | PN ---
Progress Note, Physician Chief Complaint: patient seen and eamined abdominal xra y noted for stool bone scan today NPO tonight for permacath in AM d/w daughter in detail all questions answered s/p lymph node biopsy - Current Medication List Current Medications: Active Medications Docusate Sodium (Colace -) 100 mg PO TID [facility] Last Admin: 07/29/18 05:45 Dose: 100 mg Enoxaparin Sodium (Lovenox -) 40 mg SQ DAILY [facility] Last Admin: 07/29/18 10:34 Dose: 40 mg Folic Acid (Folic Acid -) 1 mg PO DAILY [facility] Last Admin: 07/29/18 10:33 Dose: 1 mg Sodium Chloride (Normal Saline -) 1,000 mls @ 42 mls/hr IV ASDIR [facility] Last Admin: 07/29/18 10:34 Dose: 42 mls/hr Insulin Aspart (Novolog Vial Sliding Scale -) 1 vial SQ ACHS [facility]; Protocol Last Admin: 07/29/18 11:36 Dose: Not Given Morphine Sulfate (Ms Contin -) 15 mg PO BID [facility] Last Admin: 07/29/18 10:33 Dose: 15 mg Ondansetron HCl (Zofran Injection) 4 mg IVPB Q6H PRN PRN Reason: NAUSEA Polyethylene Glycol (Miralax (For Daily Use) -) 17 gm PO DAILY [facility] Last Admin: 07/29/18 11:46 Dose: Not Given Senna (Senna -) 2 tab PO HS [facility] Last Admin: 07/28/18 21:16 Dose: 2 tab - Objective Vital Signs: Vital Signs Temperature 98.0 F 07/29/18 06:00 Pulse Rate 72 07/29/18 06:00 Respiratory Rate 18 07/29/18 06:00 Blood Pressure 107/47 L 07/29/18 06:00 O2 Sat by Pulse Oximetry (%) 95 07/28/18 21:00 Constitutional: Yes: Calm Neck: Yes: Other (firm hard supraclavicular nodule) Cardiovascular: Yes: Regular Rate and Rhythm, S1, S2 Respiratory: Yes: CTA Bilaterally Gastrointestinal: Yes: Normal Bowel Sounds, Soft Edema: No Labs: CBC, BMP 07/29/18 06:00 07/29/18 06:00 INR, PTT INR 1.33 (0.83-1.09) H 07/24/18 21:00 Problem List - Problems (1) Lung mass Assessment/Plan: ct chest and T-L spine ct scan noted RIOS - MRI ordered no lesion seen oncology eval noted s/p lymph node biopsy biopsy of abdominal wall lesion- adenocarcinoma- metastatic most likely primary is the lung dvt ppx zofran prn morphine pain control stool softners and miralax to get perma cath placement in AM Code(s): R91.8 - OTHER NONSPECIFIC ABNORMAL FINDING OF LUNG FIELD (2) Neck mass Assessment/Plan: ct scan of neck noted s/p lymph node biopsy Code(s): R22.1 - LOCALIZED SWELLING, MASS AND LUMP, NECK (3) Electrolyte abnormality Assessment/Plan: hyponatremia secondary to lung cancer- sodium improved urine sodium renal eval noted Code(s): E87.8 - OTH DISORDERS OF ELECTROLYTE AND FLUID BALANCE, NEC (4) Diabetes Assessment/Plan: hold metformin will monitor bgm for now start sliding scale hgbac1 7.8 diabetic diet Code(s): E11.9 - TYPE 2 DIABETES MELLITUS WITHOUT COMPLICATIONS Qualifiers: Diabetes mellitus type: type 2
--- NOTE | 2018-07-29 14:34 | PN ---
Progress Note, Physician History of Present Illness: Pt seen and examined at bedside. She is awake and alert. She denies shortness of breath. She feels that her appetite is improved. - Current Medication List Current Medications: Active Medications Docusate Sodium (Colace -) 100 mg PO TID [facility] Last Admin: 07/29/18 05:45 Dose: 100 mg Enoxaparin Sodium (Lovenox -) 40 mg SQ DAILY [facility] Last Admin: 07/29/18 10:34 Dose: 40 mg Folic Acid (Folic Acid -) 1 mg PO DAILY [facility] Last Admin: 07/29/18 10:33 Dose: 1 mg Sodium Chloride (Normal Saline -) 1,000 mls @ 42 mls/hr IV ASDIR [facility] Last Admin: 07/29/18 10:34 Dose: 42 mls/hr Insulin Aspart (Novolog Vial Sliding Scale -) 1 vial SQ ACHS [facility]; Protocol Last Admin: 07/29/18 11:36 Dose: Not Given Morphine Sulfate (Ms Contin -) 15 mg PO BID [facility] Last Admin: 07/29/18 10:33 Dose: 15 mg Ondansetron HCl (Zofran Injection) 4 mg IVPB Q6H PRN PRN Reason: NAUSEA Polyethylene Glycol (Miralax (For Daily Use) -) 17 gm PO DAILY [facility] Last Admin: 07/29/18 11:46 Dose: Not Given Senna (Senna -) 2 tab PO HS [facility] Last Admin: 07/28/18 21:16 Dose: 2 tab - Objective Vital Signs: Vital Signs Temperature 98.0 F 07/29/18 06:00 Pulse Rate 72 07/29/18 06:00 Respiratory Rate 18 07/29/18 06:00 Blood Pressure 107/47 L 07/29/18 06:00 O2 Sat by Pulse Oximetry (%) 95 07/28/18 21:00 Constitutional: Yes: Calm Eyes: Yes: Conjunctiva Clear HENT: Yes: Atraumatic Cardiovascular: Yes: S1, S2 Respiratory: Yes: CTA Bilaterally Gastrointestinal: Yes: Soft Genitourinary: Yes: WNL Breast(s): Yes: WNL Edema: No Neurological: Yes: Oriented Psychiatric: Yes: Oriented Labs: CBC, BMP 07/29/18 06:00 07/29/18 06:00 INR, PTT INR 1.33 (0.83-1.09) H 07/24/18 21:00 Assessment/Plan Current Medications Generic Name Dose Route Start Last Admin Trade Name Freq PRN Reason Stop Dose Admin Docusate Sodium 100 mg 07/25/18 06:00 07/29/18 05:45 Colace - PO 100 mg TID [facility] Administration Enoxaparin Sodium 40 mg 07/25/18 10:00 07/29/18 10:34 Lovenox - SQ 40 mg DAILY [facility] Administration Folic Acid 1 mg 07/27/18 10:00 07/29/18 10:33 Folic Acid - PO 1 mg DAILY [facility] Administration Sodium Chloride 1,000 mls @ 42 mls/hr 07/25/18 02:45 07/29/18 10:34 Normal Saline - IV 42 mls/hr ASDIR [facility] Administration Insulin Aspart 1 vial 07/25/18 07:00 07/29/18 11:36 Novolog Vial Sliding Scale - SQ Not Given ACHS [facility] Protocol Morphine Sulfate 15 mg 07/25/18 10:00 07/29/18 10:33 Ms Contin - PO 15 mg BID [facility] Administration Ondansetron HCl 4 mg 07/25/18 02:56 Zofran Injection IVPB Q6H PRN NAUSEA Polyethylene Glycol 17 gm 07/29/18 11:45 07/29/18 11:46 Miralax (For Daily Use) - PO Not Given DAILY [facility] Senna 2 tab 07/25/18 22:00 07/28/18 21:16 Senna - PO 2 tab HS [facility] Administration cardio s1s2 reg pulm clear GI soft skin neg rash neuro awake and alert Impression 1. hyponatremia 2. lung cancer 3. dm 4. fever Plan - sodium stable - can stop fluids - encourage PO intake - saline if NPO - will follow PRN
--- NOTE | 2018-07-29 15:30 | PN ---
Progress Note (short form) - Note Progress Note: feels well, underwent bone scan today. tenderness at right neck mass, subclavicular left chest with erythema in distribution of tape. no discharge, no swelling. denies fevers, chest pain, abdominal pain, palpitations, cough, n/v. Vital Signs Temperature 98.3 F 07/29/18 10:00 Pulse Rate 81 07/29/18 10:00 Respiratory Rate 20 07/29/18 10:00 Blood Pressure 109/58 L 07/29/18 10:00 O2 Sat by Pulse Oximetry (%) 96 07/29/18 09:00 CBCD WBC 8.8 K/mm3 (4.0-10.0) 07/29/18 06:00 RBC 3.91 M/mm3 (3.60-5.2) 07/29/18 06:00 Hgb 11.4 GM/dL (10.7-15.3) 07/29/18 06:00 Hct 32.7 % (32.4-45.2) 07/29/18 06:00 MCV 83.5 fl (80-96) 07/29/18 06:00 MCHC 34.8 g/dl (32.0-36.0) 07/29/18 06:00 RDW 14.5 % (11.6-15.6) 07/29/18 06:00 Plt Count 533 K/MM3 (134-434) H 07/29/18 06:00 MPV 6.6 fl (7.5-11.1) L 07/29/18 06:00 CMP Sodium 137 mmol/L (136-145) 07/29/18 06:00 Potassium 4.6 mmol/L (3.5-5.1) 07/29/18 06:00 Chloride 100 mmol/L (98-107) 07/29/18 06:00 Carbon Dioxide 30 mmol/L (21-32) 07/29/18 06:00 Anion Gap 7 MMOL/L (8-16) L 07/29/18 06:00 BUN 4 mg/dL (7-18) L 07/29/18 06:00 Creatinine 0.5 mg/dL (0.55-1.3) L 07/29/18 06:00 Creat Clearance w eGFR > 60 (>60) 07/29/18 06:00 Calcium 8.3 mg/dL (8.5-10.1) L 07/29/18 06:00 Total Bilirubin 0.3 mg/dL (0.2-1) 07/29/18 06:00 AST 11 U/L (15-37) L 07/29/18 06:00 ALT 11 U/L (13-61) L 07/29/18 06:00 Alkaline Phosphatase 67 U/L (45-117) 07/29/18 06:00 Total Protein 6.0 g/dl (6.4-8.2) L 07/29/18 06:00 Albumin 2.2 g/dl (3.4-5.0) L 07/29/18 06:00 78 yr old woman with metastatic lung ca presents with fevers and right shoulder pain. 78 yr old woman with recent diagnosis of metastatic lung ca to abdominal wall, HTN, DM presents with shoulder pain and fevers. Problem List: Adenocarcinoma with mets hyponatremia - improved with NS thrombocytosis - stable A/P - s/p biopsy at [facility], pending results - pending bone scan results, imaging completed today - scheduled for vascular placement of port tomorrow
[2018-07-29] MEDS: CYANOCOBALAMIN (VITAMIN B-12) 1000 MCG/1 ML VIAL IM SCH (17:52)
--- NOTE | 2018-07-29 19:01 | PN ---
Progress Note (short form) - Note Progress Note: Patient seen and examined Denies any specific complaints Last Vital Signs Temp Pulse Resp BP Pulse Ox 97.7 F 78 20 144/69 95 07/29/18 22:00 07/29/18 22:00 07/29/18 22:00 07/29/18 22:00 07/29/18 22:00 Cor: RSR, No murmurs, No gallops Lungs: Clear to P&A Abd: Soft, Normal bowel sounds, No organomegaly Ext:No significant edema Abnormal Lab Results 07/29/18 07/29/18 06:00 06:00 Plt Count 533 H MPV 6.6 L Anion Gap 7 L BUN 4 L Creatinine 0.5 L Calcium 8.3 L AST 11 L ALT 11 L Total Protein 6.0 L Albumin 2.2 L Active Medications Generic Name Dose Route Start Last Admin Trade Name Freq PRN Reason Stop Dose Admin Cyanocobalamin 1,000 mcg 07/29/18 17:15 07/29/18 17:52 Vitamin B12 Injection - IM 1,000 mcg DAILY [facility] Administration Docusate Sodium 100 mg 07/25/18 06:00 07/29/18 22:08 Colace - PO 100 mg TID [facility] Administration Enoxaparin Sodium 40 mg 07/25/18 10:00 07/29/18 10:34 Lovenox - SQ 40 mg DAILY [facility] Administration Folic Acid 1 mg 07/27/18 10:00 07/29/18 10:33 Folic Acid - PO 1 mg DAILY [facility] Administration Insulin Aspart 1 vial 07/25/18 07:00 07/29/18 22:08 Novolog Vial Sliding Scale - SQ Not Given ACHS [facility] Protocol Morphine Sulfate 15 mg 07/25/18 10:00 07/29/18 22:07 Ms Contin - PO 15 mg BID [facility] Administration Ondansetron HCl 4 mg 07/25/18 02:56 Zofran Injection IVPB Q6H PRN NAUSEA Polyethylene Glycol 17 gm 07/29/18 11:45 07/29/18 11:46 Miralax (For Daily Use) - PO Not Given DAILY [facility] Senna 2 tab 07/25/18 22:00 07/29/18 22:08 Senna - PO 2 tab HS [facility] Administration A/P 78 y/o female with RLL mass, adrenal met ? cervical nodes b/l, abdominal wall metastasis Preliminary [ath c/w adenoca ?? lung origin clinically Next gen sequencing/PDL1 staining added MRI brain negative Bone scan pending Depending on PDL! staining and next gen sequencing will decide on front line therapy --targeted therapy vs single agent immunotherapy vs immunotherapy + chemotherapy For port placement will discuss with Vascular
[2018-07-29] MEDS: SENNOSIDES 8.6MG TABLET (FP) PO SCH (22:08)
[2018-07-30] MEDS: DOCUSATE SODIUM 100 MG CAPSULE (FP) PO SCH ×3 (05:13→21:24)
[2018-07-30] MEDS: INSULIN SLIDING SCALE (NOVOLOG) 1 VIAL SQ SCH ×4 (06:40→21:27)
[2018-07-30 07:51] LABS: INR 1.27 (0.83-1.09)
[2018-07-30 07:54] LABS: ACTIVATED PTT 33.5 SECONDS (25.2-36.5)
--- NOTE | 2018-07-30 09:58 | PN ---
Progress Note (short form) - Note Progress Note: Denies CP or SOB. No acute events overnight. No hemoptysis. Intake & Output 07/27/18 07/28/18 07/29/18 07/30/18 23:59 23:59 23:59 23:59 Intake Total 7031 253 6373 0 Output Total 3100 3000 300 Balance -1470 -2370 1144 0 Weight 135 lb 1 oz 137 lb 4 oz 142 lb 12.8 oz 135 lb 7 oz Last Vital Signs Temp Pulse Resp BP Pulse Ox 98.7 F 75 20 123/64 95 07/30/18 06:56 07/30/18 06:56 07/30/18 06:56 07/30/18 06:56 07/29/18 22:00 Active Medications Cyanocobalamin (Vitamin B12 Injection -) 1,000 mcg IM DAILY [facility] Last Admin: 07/29/18 17:52 Dose: 1,000 mcg Docusate Sodium (Colace -) 100 mg PO TID [facility] Last Admin: 07/30/18 05:13 Dose: Not Given Enoxaparin Sodium (Lovenox -) 40 mg SQ DAILY [facility] Last Admin: 07/29/18 10:34 Dose: 40 mg Folic Acid (Folic Acid -) 1 mg PO DAILY [facility] Last Admin: 07/29/18 10:33 Dose: 1 mg Insulin Aspart (Novolog Vial Sliding Scale -) 1 vial SQ ACHS [facility]; Protocol Last Admin: 07/30/18 06:40 Dose: Not Given Morphine Sulfate (Ms Contin -) 15 mg PO BID [facility] Last Admin: 07/29/18 22:07 Dose: 15 mg Ondansetron HCl (Zofran Injection) 4 mg IVPB Q6H PRN PRN Reason: NAUSEA Polyethylene Glycol (Miralax (For Daily Use) -) 17 gm PO DAILY [facility] Last Admin: 07/29/18 11:46 Dose: Not Given Senna (Senna -) 2 tab PO HS [facility] Last Admin: 07/29/18 22:08 Dose: 2 tab Constitutional: Yes: NAD Eyes: Yes: Conjunctiva Clear, EOM Intact HENT: Yes: Atraumatic, Normocephalic Neck: Yes: Lymphadenopathy Cardiovascular: Yes: Regular Rate and Rhythm Respiratory: Yes: Diminished. No: Wheezes ...Clubbing: No Gastrointestinal: Yes: Normal Bowel Sounds, Soft. No: Tenderness Edema: No Neurological: Yes: Alert, Oriented Labs: Laboratory Results - last 24 hr 07/29/18 07/29/18 07/29/18 11:36 17:54 22:06 PT with INR INR PTT ([place]in FS) POC Glucometer 135 134 134 07/30/18 07/30/18 05:35 06:30 PT with INR 15.00 H INR 1.27 H PTT (Actin FS) 33.5 POC Glucometer 111 Assessment/Plan Metastatic Adenocarcinoma: lung origin Intractable Pain DM Hyperlipidemia Recent Abdominal Wall Abscess - Pain control - Check official bone scan result - O2 as needed to keep Spo2 >90% - inhaled bronchodilators - DVT prophylaxis Dr Connors
[2018-07-30] MEDS: ENOXAPARIN NA (PORCINE) 40 MG/0.4 ML DISP.SYRIN SQ SCH (10:54)
[2018-07-30] MEDS: morphine SO4 SUSTAINED ACTING 15 MG TABLET.SA PO SCH ×2 (10:59→21:25)
[2018-07-30] MEDS: FOLIC ACID 1 MG TABLET (FP) PO SCH (11:00)
[2018-07-30] MEDS: CYANOCOBALAMIN (VITAMIN B-12) 1000 MCG/1 ML VIAL IM SCH (11:00)
[2018-07-30] MEDS: POLYETHYLENE GLYCOL 3350 119 GM BTL PO SCH (11:00)
--- NOTE | 2018-07-30 11:12 | PN ---
Progress Note, Physician Chief Complaint: patient NPO for port placement today bone scan report pending - Current Medication List Current Medications: Active Medications Cyanocobalamin (Vitamin B12 Injection -) 1,000 mcg IM DAILY [facility] Last Admin: 07/30/18 11:00 Dose: 1,000 mcg Docusate Sodium (Colace -) 100 mg PO TID [facility] Last Admin: 07/30/18 05:13 Dose: Not Given Enoxaparin Sodium (Lovenox -) 40 mg SQ DAILY [facility] Last Admin: 07/30/18 10:54 Dose: Not Given Folic Acid (Folic Acid -) 1 mg PO DAILY [facility] Last Admin: 07/30/18 11:00 Dose: 1 mg Insulin Aspart (Novolog Vial Sliding Scale -) 1 vial SQ ACHS [facility]; Protocol Last Admin: 07/30/18 11:02 Dose: Not Given Morphine Sulfate (Ms Contin -) 15 mg PO BID [facility] Last Admin: 07/30/18 10:59 Dose: 15 mg Ondansetron HCl (Zofran Injection) 4 mg IVPB Q6H PRN PRN Reason: NAUSEA Polyethylene Glycol (Miralax (For Daily Use) -) 17 gm PO DAILY [facility] Last Admin: 07/30/18 11:00 Dose: Not Given Senna (Senna -) 2 tab PO HS [facility] Last Admin: 07/29/18 22:08 Dose: 2 tab - Objective Vital Signs: Vital Signs Temperature 98.7 F 07/30/18 06:56 Pulse Rate 75 07/30/18 06:56 Respiratory Rate 20 07/30/18 06:56 Blood Pressure 123/64 07/30/18 06:56 O2 Sat by Pulse Oximetry (%) 95 07/29/18 22:00 Constitutional: Yes: Calm Neck: Yes: Other ( supraclavicular LN palpable firm hard) Cardiovascular: Yes: Regular Rate and Rhythm, S1, S2 Respiratory: Yes: CTA Bilaterally Edema: No Neurological: Yes: Alert, Oriented Labs: CBC, BMP 07/29/18 06:00 07/29/18 06:00 INR, PTT INR 1.27 (0.83-1.09) H 07/30/18 06:30 Problem List - Problems (1) Lung mass Assessment/Plan: ct chest and T-L spine ct scan noted RIOS - MRI ordered no lesion seen oncology eval noted s/p lymph node biopsy bone scan report pending biopsy of abdominal wall lesion- adenocarcinoma- metastatic most likely primary is the lung dvt ppx zofran prn morphine pain control stool softners and miralax to get perma cath placement today Code(s): R91.8 - OTHER NONSPECIFIC ABNORMAL FINDING OF LUNG FIELD (2) Neck mass Assessment/Plan: ct scan of neck noted s/p lymph node biopsy Code(s): R22.1 - LOCALIZED SWELLING, MASS AND LUMP, NECK (3) Electrolyte abnormality Assessment/Plan: hyponatremia secondary to lung cancer- sodium improved urine sodium renal eval noted Code(s): E87.8 - OTH DISORDERS OF ELECTROLYTE AND FLUID BALANCE, NEC (4) Diabetes Assessment/Plan: hold metformin will monitor bgm for now start sliding scale hgbac1 7.8 diabetic diet Code(s): E11.9 - TYPE 2 DIABETES MELLITUS WITHOUT COMPLICATIONS Qualifiers: Diabetes mellitus type: type 2
[2018-07-30] MEDS ORDERED: HEPARIN NA (PORCINE) 5,000 UNITS/ML 1ML VIAL ONE (13:14)
[2018-07-30] MEDS ORDERED: LIDOCAINE HCL 1%, 10 MG/ML (20ML VIAL) ONE ×2 (13:14→14:00)
[2018-07-30] MEDS ORDERED: ceFAZolin SODIUM 1 GM VIAL ONE (13:39)
[2018-07-30] MEDS ORDERED: ceFAZolin SODIUM 1 GM VIAL IVPB ONE (13:39)
[2018-07-30] MEDS ORDERED: MIDAZOLAM HCL 2 MG/2 ML SINGLE DOSE VIAL ONE (13:40)
[2018-07-30] MEDS ORDERED: LIDOCAINE HCL 1%, 10 MG/ML (20ML VIAL) NR ONE ×2 (13:48)
--- NOTE | 2018-07-30 14:28 | OP ---
Operative Note - Note: Operative Date: 07/30/18 Pre-Operative Diagnosis: lung cancer with mets Operation: insertion of port Post-Operative Diagnosis: Same as Pre-op Surgeon: Devin Bird Anesthesia: Fractional Estimated Blood Loss (mls): 20 Operative Report Dictated: Yes
[2018-07-30] MEDS ORDERED: ONDANSETRON 4 MG/2 ML VIAL IVPB PRN (14:56)
--- NOTE | 2018-07-30 15:28 | OP ---
DATE OF OPERATION: 07/30/2018 PREOPERATIVE DIAGNOSIS: Lung cancer with metastasis. POSTOPERATIVE DIAGNOSIS: Lung cancer with metastasis. PROCEDURE: Insertion of Port-A-Cath. SURGEON: Devin Pham DO. ANESTHESIA: Fractional. ESTIMATED BLOOD LOSS: 20 mL. INDICATIONS: The patient is a 78-year-old female that has lung cancer with metastases and needs chemotherapy initiation. Vascular surgery was consulted for port placement. The patient was consented to the procedure understanding the risks, benefits and alternatives and taken to the operating room. DESCRIPTION OF PROCEDURE: Once in the operating room she was laid on the operating table in the supine manner and the right and neck and chest were prepped and draped in a sterile surgical manner. We then went ahead and injected 10 mL Lidocaine 1% below the clavicle. We then took a micropuncture needle and punctured the right subclavian vein. Micopuncture wire was inserted and micopuncture sheath was inserted and a 0.035 floppy guidewire was inserted. We then ahead and went 2 fingerbreadths below the puncture site and 10 mL of lidocaine was injected there. We made a 5-cm incision using a 15 blade which was used to control hemostasis and we were able to create a pocket for a port-a-cath. Once the pocket was created we tunneled the port-a-cath up to the puncture site. We then cut the catheter to size. We then placed a breakaway sheath over the guidewire into the vein and the guidewire removed. Catheter was placed inside the sheath. The sheath was broken away as the catheter was placed inside the vein. We then monica back on the port using our Shankar needle and there was good flow. Heparinized saline was injected and 2000 units of IV heparin were injected. Then 2-0 silk was used and the capsule was attached to the subcutaneous tissue then 3-0 Vicryl was used and the subcutaneous tissue was approximated in an interrupted manner. Skin was closed with 4-0 Biosyn in a subcuticular running fashion. The puncture site was closed using a 1 simple 4-0 Biosyn stitch. The area was then dried. Steri-Strips were placed and 4 x 4 Tegaderms were placed. The patient tolerated the procedure well with no complications. The patient was transferred back in stable condition where a chest x-ray will be obtained. DEVIN PHAM DO [employer]/[id number]
--- NOTE | 2018-07-30 17:09 | PN ---
Progress Note (short form) - Note Progress Note: Patient seen and examined Complaining of pain at incision site of port and right upper chest and back pains Last Vital Signs Temp Pulse Resp BP Pulse Ox 99.0 F 75 18 134/72 96 07/30/18 16:40 07/30/18 16:40 07/30/18 16:40 07/30/18 16:40 07/30/18 16:39 HEENT: ODETTE, EOM Intact Oropharynx: No thrush, No mucositis, dentures Neck adenopathy s/p port insertion Cor: RSR, No murmurs, No gallops Lungs: rales bilaterally Abd: Soft, Normal bowel sounds, No organomegaly Ext:No significant edema Skin: No rashes, Integument intact CBC, BMP 07/29/18 06:00 07/29/18 06:00 Current Medications Generic Name Dose Route Start Last Admin Trade Name Freq PRN Reason Stop Dose Admin Cyanocobalamin 1,000 mcg 07/31/18 10:00 Vitamin B12 Injection - IM DAILY [facility] Docusate Sodium 100 mg 07/30/18 22:00 Colace - PO TID [facility] Enoxaparin Sodium 40 mg 07/31/18 10:00 Lovenox - SQ DAILY [facility] Folic Acid 1 mg 07/31/18 10:00 Folic Acid - PO DAILY [facility] Insulin Aspart 1 vial 07/30/18 16:30 Novolog Vial Sliding Scale - SQ ACHS [facility] Protocol Morphine Sulfate 15 mg 07/30/18 22:00 Ms Contin - PO BID [facility] Ondansetron HCl 4 mg 07/30/18 14:56 Zofran Injection IVPB Q6H PRN NAUSEA Polyethylene Glycol 17 gm 07/31/18 10:00 Miralax (For Daily Use) - PO DAILY [facility] Senna 2 tab 07/30/18 22:00 Senna - PO HS [facility]NN Impression: 78 y/o female with RLL mass, adrenal met cervical nodes b/l, abdominal wall metastasis Adenoca of lung -presumably MRI brain- negative Bone scan - negative Awaiting results of of PDL-1 and mutation analysis
[2018-07-30] MEDS ORDERED: INSULIN (NOVOLOG) ASPART 100 UNITS/ML 10ML VIAL ONE (21:18)
[2018-07-30] MEDS ORDERED: SENNOSIDES 8.6MG TABLET (FP) PO SCH (22:00)
[2018-07-31] MEDS: DOCUSATE SODIUM 100 MG CAPSULE (FP) PO SCH ×2 (06:43→13:51)
[2018-07-31] MEDS: INSULIN SLIDING SCALE (NOVOLOG) 1 VIAL SQ SCH ×2 (06:45→12:04)
--- NOTE | 2018-07-31 09:23 | PN ---
Progress Note (short form) - Note Progress Note: POD#1 Pt with complaints of pain aat the port a cath site. Vital Signs Period Temp Pulse Resp BP Sys/Paulson Pulse Ox Last 24 Hr 97.8 F-99.4 F 60-88 14-20 97-134/47-72 95-100 GEN: appears comfortable Chest: dressing c/d/i. No masses or ecchymosis CXR: post-op. catheter in place. no pntx A/p: 78 yo female s/p bardport placement Continue to keep the incicison c/d/i/covered. F/u with Dr. Bird in 2 weeks post-op.
[2018-07-31] MEDS: morphine SO4 SUSTAINED ACTING 15 MG TABLET.SA PO SCH (09:49)
[2018-07-31] MEDS ORDERED: POLYETHYLENE GLYCOL 3350 119 GM BTL PO SCH (10:00)
[2018-07-31] MEDS ORDERED: CYANOCOBALAMIN (VITAMIN B-12) 1000 MCG/1 ML VIAL IM SCH (10:00)
[2018-07-31] MEDS ORDERED: ENOXAPARIN NA (PORCINE) 40 MG/0.4 ML DISP.SYRIN SQ SCH (10:00)
[2018-07-31] MEDS ORDERED: FOLIC ACID 1 MG TABLET (FP) PO SCH (10:00)
--- NOTE | 2018-07-31 12:39 | PN ---
Progress Note (short form) - Note Progress Note: Anesthesia post op note, POD#1 S/P Port-a cath placement under MAC. Pat seen and examined. VSS. No apparent post anesthesia complications. Signed Off.
[2018-07-31] MEDS ORDERED: PT OWN MED DRAWER 7, Y5N ONE (13:42)
--- NOTE | 2018-07-31 15:03 | PN ---
Progress Note, Physician History of Present Illness: PULMONARY ALERT,NO DISTRESS,-SOB,-CP - Current Medication List Current Medications: Active Medications Cyanocobalamin (Vitamin B12 Injection -) 1,000 mcg IM DAILY [facility] Last Admin: 07/31/18 09:49 Dose: 1,000 mcg Docusate Sodium (Colace -) 100 mg PO TID [facility] Last Admin: 07/31/18 13:51 Dose: 100 mg Enoxaparin Sodium (Lovenox -) 40 mg SQ DAILY [facility] Last Admin: 07/31/18 09:50 Dose: 40 mg Folic Acid (Folic Acid -) 1 mg PO DAILY [facility] Last Admin: 07/31/18 09:49 Dose: 1 mg Insulin Aspart (Novolog Vial Sliding Scale -) 1 vial SQ ACHS [facility]; Protocol Last Admin: 07/31/18 12:04 Dose: Not Given Morphine Sulfate (Ms Contin -) 15 mg PO BID [facility] Last Admin: 07/31/18 09:49 Dose: 15 mg Ondansetron HCl (Zofran Injection) 4 mg IVPB Q6H PRN PRN Reason: NAUSEA Polyethylene Glycol (Miralax (For Daily Use) -) 17 gm PO DAILY [facility] Last Admin: 07/31/18 09:51 Dose: 17 grams Senna (Senna -) 2 tab PO HS [facility] Last Admin: 07/30/18 21:25 Dose: 2 tab - Objective Vital Signs: Vital Signs Temperature 98.3 F 07/31/18 10:00 Pulse Rate 89 07/31/18 10:00 Respiratory Rate 18 07/31/18 10:00 Blood Pressure 112/61 07/31/18 10:00 O2 Sat by Pulse Oximetry (%) 95 07/30/18 21:00 Constitutional: Yes: Well Nourished, Calm Eyes: Yes: WNL HENT: Yes: WNL Neck: Yes: WNL Cardiovascular: Yes: Regular Rate and Rhythm, S1, S2 Respiratory: Yes: Diminished Gastrointestinal: Yes: Normal Bowel Sounds, Soft Edema: Yes Peripheral Pulses WNL: No - ....Imaging Other: Other (BONE SCAN NO EVUIDENCE OF BONE METS) Problem List - Problems (1) Metastatic adenocarcinoma Code(s): C79.9 - SECONDARY MALIGNANT NEOPLASM OF UNSPECIFIED SITE (2) Intra-abdominal abscess Code(s): K65.1 - PERITONEAL ABSCESS (3) Lung mass Code(s): R91.8 - OTHER NONSPECIFIC ABNORMAL FINDING OF LUNG FIELD (4) HLD (hyperlipidemia) Code(s): E78.5 - HYPERLIPIDEMIA, UNSPECIFIED (5) Diabetes Code(s): E11.9 - TYPE 2 DIABETES MELLITUS WITHOUT COMPLICATIONS Assessment/Plan Assessment/Plan Metastatic Adenocarcinoma: lung origin Intractable Pain DM Hyperlipidemia Recent Abdominal Wall Abscess - Pain control - Check official bone scan result - O2 as needed to keep Spo2 >90% - inhaled bronchodilators - DVT prophylaxis DR OLIVARES
[2018-07-31 15:32] VITALS: BP 116/87; PULSE 74; TEMP 98.4
[2018-07-31] MEDS ORDERED: oxyCODONE HCL 5 MG TABLET PO PRN (15:34)
--- NOTE | 2018-07-31 15:46 | PN ---
Progress Note, Physician Chief Complaint: Metastatic Adenocarcinoma: lung origin Intractable Pain DM Hyperlipidemia Recent Abdominal Wall Abscess History of Present Illness: NAD complaining of pain neck andhead region Had lymph node biopsy-results pending Had port a cath placed yesterday - Current Medication List Current Medications: Active Medications Cyanocobalamin (Vitamin B12 Injection -) 1,000 mcg IM DAILY [facility] Last Admin: 07/31/18 09:49 Dose: 1,000 mcg Docusate Sodium (Colace -) 100 mg PO TID [facility] Last Admin: 07/31/18 13:51 Dose: 100 mg Enoxaparin Sodium (Lovenox -) 40 mg SQ DAILY [facility] Last Admin: 07/31/18 09:50 Dose: 40 mg Folic Acid (Folic Acid -) 1 mg PO DAILY [facility] Last Admin: 07/31/18 09:49 Dose: 1 mg Insulin Aspart (Novolog Vial Sliding Scale -) 1 vial SQ ACHS [facility]; Protocol Last Admin: 07/31/18 12:04 Dose: Not Given Morphine Sulfate (Ms Contin -) 15 mg PO BID [facility] Last Admin: 07/31/18 09:49 Dose: 15 mg Ondansetron HCl (Zofran Injection) 4 mg IVPB Q6H PRN PRN Reason: NAUSEA Oxycodone HCl (Roxicodone -) 5 mg PO Q4H PRN PRN Reason: PAIN LEVEL 6-10 Polyethylene Glycol (Miralax (For Daily Use) -) 17 gm PO DAILY [facility] Last Admin: 07/31/18 09:51 Dose: 17 grams Senna (Senna -) 2 tab PO HS [facility] Last Admin: 07/30/18 21:25 Dose: 2 tab - Objective Vital Signs: Vital Signs Temperature 98.4 F 07/31/18 15:30 Pulse Rate 74 07/31/18 15:30 Respiratory Rate 16 07/31/18 15:30 Blood Pressure 116/87 07/31/18 15:30 O2 Sat by Pulse Oximetry (%) 95 07/30/18 21:00 Constitutional: Yes: Well Nourished, No Distress, Calm Cardiovascular: Yes: Regular Rate and Rhythm Respiratory: Yes: Regular Gastrointestinal: Yes: Normal Bowel Sounds, Soft, Abdomen, Obese Musculoskeletal: Yes: WNL Extremities: Yes: WNL Edema: No Peripheral Pulses WNL: Yes Neurological: Yes: Alert, Oriented Psychiatric: Yes: Alert, Oriented Labs: CBC, BMP 07/29/18 06:00 07/29/18 06:00 INR, PTT INR 1.27 (0.83-1.09) H 07/30/18 06:30 Problem List - Problems (1) Diabetes Assessment/Plan: -BGM AC HS -Diabetic low sodium diet -Novolog sliding scale -A1c at 7.8 -On Metformin 500 mg po bid at home, to be resumed upon discharge -Start Januvia 100 mg po daily Code(s): E11.9 - TYPE 2 DIABETES MELLITUS WITHOUT COMPLICATIONS (2) Metastatic adenocarcinoma Assessment/Plan: -Hematology/oncology on board -Lymph node biopsy results pending -Bone scan negative Code(s): C79.9 - SECONDARY MALIGNANT NEOPLASM OF UNSPECIFIED SITE (3) Neck mass Assessment/Plan: -Lymph node biopsy pending Code(s): R22.1 - LOCALIZED SWELLING, MASS AND LUMP, NECK Assessment/Plan see problem lsit D/C home with VNS services Spoke to daughter Giselle at bedside
--- NOTE | 2018-07-31 16:05 | PN ---
Progress Note (short form) - Note Progress Note: Patient seen and examined Complains of pain at biopsy and port site Last Vital Signs Temp Pulse Resp BP Pulse Ox 98.4 F 74 16 116/87 95 07/31/18 15:30 07/31/18 15:30 07/31/18 15:30 07/31/18 15:30 07/30/18 21:00 HEENT: ODETTE, EOM Intact Oropharynx: No thrush, No mucositis Nodes: Without adenopathy Cor: RSR, No murmurs, No gallops Lungs: scattered rales Abd: Soft, Normal bowel sounds, No organomegaly Ext:No significant edema Skin: No rashes, Integument intact CBC, BMP 07/29/18 06:00 07/29/18 06:00 Current Medications Generic Name Dose Route Start Last Admin Trade Name Freq PRN Reason Stop Dose Admin Cyanocobalamin 1,000 mcg 07/31/18 10:00 07/31/18 09:49 Vitamin B12 Injection - IM 1,000 mcg DAILY [facility] Administration Docusate Sodium 100 mg 07/30/18 22:00 07/31/18 13:51 Colace - PO 100 mg TID [facility]NN Administration Enoxaparin Sodium 40 mg 07/31/18 10:00 07/31/18 09:50 Lovenox - SQ 40 mg DAILY [facility] Administration Folic Acid 1 mg 07/31/18 10:00 07/31/18 09:49 Folic Acid - PO 1 mg DAILY [facility] Administration Insulin Aspart 1 vial 07/30/18 16:30 07/31/18 12:04 Novolog Vial Sliding Scale - SQ Not Given ACHS [facility] Protocol Morphine Sulfate 15 mg 07/30/18 22:00 07/31/18 09:49 Ms Contin - PO 15 mg BID [facility] Administration Ondansetron HCl 4 mg 07/30/18 14:56 Zofran Injection IVPB Q6H PRN NAUSEA Oxycodone HCl 5 mg 07/31/18 15:34 Roxicodone - PO Q4H PRN PAIN LEVEL 6-10 Polyethylene Glycol 17 gm 07/31/18 10:00 07/31/18 09:51 Miralax (For Daily Use) - PO 17 grams DAILY [facility] Administration Senna 2 tab 07/30/18 22:00 07/30/18 21:25 Senna - PO 2 tab HS [facility]NN Administration Sitagliptin Phosphate 100 mg 08/01/18 07:00 Januvia - PO DAILY@0700 [facility]NN Impression: Adenoca with abdominal wal and cervical mets Awaiting path of cervical node biopsy Outpatient follow up pending path and PDL-1 and mutational analysis
--- NOTE | 2018-07-31 16:20 | DS ---
Physical Examination Vital Signs: Vital Signs Temperature 98.4 F 07/31/18 15:30 Pulse Rate 74 07/31/18 15:30 Respiratory Rate 16 07/31/18 15:30 Blood Pressure 116/87 07/31/18 15:30 O2 Sat by Pulse Oximetry (%) 95 07/31/18 09:00 Findings/Remarks: 78 year old female former smoker, brought in with family because of severe neck and right shoulder pain, ongoing for several days to weeks. Patient says that she had cyst removed from abdomen this past Wed at [facility]. As per patient's family she was diagnosed with lung cancer (unknown how) about 9 days ago and was scheduled to follow with Dr. Taylor. She has been having intermittent fevers as well. Tramadol at home was not working for pain control. Patient feels her pain was better controlled after toradol, morphine, and tylenol combo in ER. Constitutional: Yes: Well Nourished, No Distress, Calm Cardiovascular: Yes: Regular Rate and Rhythm Respiratory: Yes: Regular Gastrointestinal: Yes: Normal Bowel Sounds, Soft Musculoskeletal: Yes: WNL Extremities: Yes: WNL Edema: No Peripheral Pulses WNL: Yes Neurological: Yes: Alert, Oriented Psychiatric: Yes: Alert, Oriented Labs: CBC, BMP 07/29/18 06:00 07/29/18 06:00 Discharge Summary Reason For Visit: PAIN, HYPONATREMIA Current Active Problems Diabetes (Acute) HLD (hyperlipidemia) (Acute) Metastatic adenocarcinoma (Acute) Neck mass (Acute) Hospital Course: Laboratory Last Values WBC 8.8 K/mm3 (4.0-10.0) 07/29/18 06:00 RBC 3.91 M/mm3 (3.60-5.2) 07/29/18 06:00 Hgb 11.4 GM/dL (10.7-15.3) 07/29/18 06:00 Hct 32.7 % (32.4-45.2) 07/29/18 06:00 MCV 83.5 fl (80-96) 07/29/18 06:00 MCH 29.0 pg (25.7-33.7) 07/29/18 06:00 MCHC 34.8 g/dl (32.0-36.0) 07/29/18 06:00 RDW 14.5 % (11.6-15.6) 07/29/18 06:00 Plt Count 533 K/MM3 (134-434) H 07/29/18 06:00 MPV 6.6 fl (7.5-11.1) L 07/29/18 06:00 Absolute Neuts (auto) 6.8 K/mm3 (1.5-8.0) 07/26/18 06:30 Neutrophils % 69.3 % (42.8-82.8) 07/26/18 06:30 Lymphocytes % 19.7 % (8-40) 07/26/18 06:30 Monocytes % 8.1 % (3.8-10.2) 07/26/18 06:30 Eosinophils % 2.4 % (0-4.5) 07/26/18 06:30 Basophils % 0.5 % (0-2.0) 07/26/18 06:30 Nucleated RBC % 0 % (0-0) 07/26/18 06:30 PT with INR 15.00 SEC (9.7-13.0) H 07/30/18 06:30 INR 1.27 (0.83-1.09) H 07/30/18 06:30 PTT (Actin FS) 33.5 SECONDS (25.2-36.5) 07/30/18 06:30 Sodium 137 mmol/L (136-145) 07/29/18 06:00 Potassium 4.6 mmol/L (3.5-5.1) 07/29/18 06:00 Chloride 100 mmol/L (98-107) 07/29/18 06:00 Carbon Dioxide 30 mmol/L (21-32) 07/29/18 06:00 Anion Gap 7 MMOL/L (8-16) L 07/29/18 06:00 BUN 4 mg/dL (7-18) L 07/29/18 06:00 Creatinine 0.5 mg/dL (0.55-1.3) L 07/29/18 06:00 Creat Clearance w eGFR > 60 (>60) 07/29/18 06:00 POC Glucometer 133 UNITS (80-120) 07/31/18 12:03 Random Glucose 93 mg/dL (74-106) 07/29/18 06:00 Hemoglobin A1c % 7.8 % (4.2-6.3) H 07/26/18 06:30 Serum Osmolality 274 mosm/kg (278-305) L 07/25/18 06:00 Calcium 8.3 mg/dL (8.5-10.1) L 07/29/18 06:00 Total Bilirubin 0.3 mg/dL (0.2-1) 07/29/18 06:00 AST 11 U/L (15-37) L 07/29/18 06:00 ALT 11 U/L (13-61) L 07/29/18 06:00 Alkaline Phosphatase 67 U/L (45-117) 07/29/18 06:00 Total Protein 6.0 g/dl (6.4-8.2) L 07/29/18 06:00 Albumin 2.2 g/dl (3.4-5.0) L 07/29/18 06:00 TSH 0.21 uIU/ml (0.358-3.74) L 07/26/18 06:30 Cortisol AM Sample 16.6 ug/dL (.) 07/26/18 06:30 Urine Color Yellow 07/25/18 02:00 Urine Appearance Clear 07/25/18 02:00 Urine pH 6.0 (5.0-8.0) 07/25/18 02:00 Ur Specific [place] 1.011 (1.010-1.035) 07/25/18 02:00 Urine Protein Negative (NEGATIVE) 07/25/18 02:00 Urine Glucose (UA) Negative (NEGATIVE) 07/25/18 02:00 Urine Ketones Negative (NEGATIVE) 07/25/18 02:00 Urine Blood Negative (NEGATIVE) 07/25/18 02:00 Urine Nitrite Negative (NEGATIVE) 07/25/18 02:00 Urine Bilirubin Negative (<2.0 mg/dL) 07/25/18 02:00 Urine Urobilinogen Negative mg/dL (0.2-1.0) 07/25/18 02:00 Ur Leukocyte Esterase Trace (NEGATIVE) 07/25/18 02:00 Urine WBC (Auto) 4 /hpf (3-5) 07/25/18 02:00 Urine RBC (Auto) 1 /hpf (0-3) 07/25/18 02:00 Urine Mucus Rare 07/25/18 02:00 Urine Osmolality 182 mosm/kg (300-900) L 07/25/18 00:44 Ur Random Sodium 39 MMOL/L (40-220) L 07/25/18 23:00 Urine Creatinine 21.0 mg/dL (30-50) L 07/25/18 23:00 Microbiology 07/24/18 21:00 Blood - Peripheral Venous Blood Culture - Final NO GROWTH AFTER 5 DAYS INCUBATION 07/24/18 21:00 Blood - Peripheral Venous Blood Culture - Final NO GROWTH AFTER 5 DAYS INCUBATION 07/25/18 02:00 Urine - Urine Clean Catch Urine Culture - Final NO GROWTH OBTAINED Condition: Stable - Instructions Referrals: Reva Sadler MD [Staff Physician] - Devin Bird MD [Non Staff, Medical] - Trace Taylor MD [Staff Physician] - Disposition: VNS/HOME HEALTH CARE - Home Medications Comprehensive Discharge Medication List: Ambulatory Orders Meclizine HCl [Antivert -] 12.5 mg PO BID PRN 07/25/18 Metformin HCl [Metformin HCl ER] 500 mg PO DAILY 07/25/18 Omeprazole 40 mg PO DAILY 07/25/18 Rosuvastatin [Crestor -] 10 mg PO DAILY 07/25/18 Docusate Sodium [Colace -] 100 mg PO TID #90 capsule 07/31/18 Folic Acid - 1 mg PO DAILY #30 tablet 07/31/18 Morphine *Sr* [Ms Contin -] 15 mg PO BID #60 tablet.sa MDD 2 07/31/18 Polyethylene Glycol 3350 [Miralax 119 gm Btl -] 17 gm PO DAILY #1 bottle Sennosides [Senna -] 2 tab PO HS #60 tablet 07/31/18 Sitagliptin Phosphate [Januvia -] 100 mg PO DAILY@0700 #30 ud 07/31/18 oxyCODONE HCL [Roxicodone -] 5 mg PO Q4H PRN #30 tablet MDD 6 07/31/18
[2018-08-01] MEDS ORDERED: sitaGLIPtin PHOSPHATE 100 MG TABLET (FP) PO SCH (07:00)
--- NOTE | 2018-08-02 13:33 | PATH ---
Surgical Pathology Report Patient Name: SULAIMAN SCHMIDT Med. Rec. #: [id number] /Age/Gender: 1940 (Age: 78) / F Account: [id number] Location: [facility] MED/SURG Taken: 07/26/2018 Received: 07/26/2018 Reported: 08/02/2018 Physicians: Jorgito Wall M.D. Smitha Mellacheruvu, M.D. Specimen(s) Received RIGHT LYMPH NODE TISSUE Clinical History 78 year old female with lung mass and bilateral large supraclavicular masses/lymph nodes Final Diagnosis Supraclavicular lymph node, right, ultrasound guided CORE biopsy: Invasive adenocarcinoma, moderately differentiated. SEE COMMENT. Comment: Histologic sections show malignant epithelial cells dispersed as aggregates and glands with associated marked necrosis imbedded in desmoplastic stroma. Immunohistochemical stains performed and interpreted at [facility] show the tumor is positive for AE1/3, CK7, CK20, and show patchy positivity with TTF-1. Additional immunohistochemical stains performed at [place], [place] ([id number]) and interpreted at [facility] show the tumor is negative for Napsin A, CDX2, CDH17, and SATB2. Overall immunophenotype is non-specific. Given the presence of a large lung mass and patchy positivity with TTF-1, lung origin is a consideration; however the possibility of GI and pancreaticobiliary tract origin cannot be completely excluded. Suggest clinical and radiologic correlation. Pathology report from abdominal wall mass/cyst from [facility] noted. Next generation sequencing pending, findings will be reported separately. Findings discussed with Dr. Pollack. PD-L1 LUNG (Programmed Ligand 1 (PD-L1), Clone 22C3 pharmDx (TM) kit for KEYTRUDA(R) performed and interpreted at [facility], [place], [place] (Specimen #: [id number]) shows the following: TUMOR PROPORTION SCORE: 50% INTERPRETATION: High Expression Reference Range: Tumor proportion Score (TPS) = % of at least 100 viable tumor cells showing complete or partial membrane staining at > 1+ TPS < 1% = No Expression TPS 1- 49% = Low Expression TPS >50% = High Expression See [employer] report for additional details (Specimen #: [id number]) Electronically Signed Kasia Mello M.D. Gross Description Received in formalin labeled "lymph node tissue," are 4 bass, cylindrical portions of soft tissue ranging from 1.4-1.7 cm in length and averaging 0.1 cm in diameter. The specimens are submitted in toto in one cassette. There is additional tissue received in RPMI solution which is in the refrigerator. 07/26/2018 [facility]
== END 2018-07-31 17:17 | disposition home health service (06) | DRG 41 ==
LOC: JER 16:42 → JERBED 07-25 00:23 → J8W 07-25 19:10
PROVIDERS: ADMIT Internal Medicine; ATTEND Family Medicine
PROC: 07913ZX Drainage of Right Neck Lymphatic, Percutaneous Approach, Diagnostic (ICD-10-PCS; 2018-07-26)
PROC: 02HV33Z Insertion of Infusion Device into Superior Vena Cava, Percutaneous Approach (ICD-10-PCS; principal; 2018-07-30 14:00)
DX: C79.49 Secondary malignant neoplasm of other parts of nervous system (principal); C34.90 Malignant neoplasm of unspecified part of unspecified bronchus or lung; E87.1 Hypo-osmolality and hyponatremia; C79.89 Secondary malignant neoplasm of other specified sites; C34.31 Malignant neoplasm of lower lobe, right bronchus or lung; C79.2 Secondary malignant neoplasm of skin; R22.1 Localized swelling, mass and lump, neck; E11.9 Type 2 diabetes mellitus without complications; E78.5 Hyperlipidemia, unspecified; M54.5 Low back pain; Z79.4 Long term (current) use of insulin; E87.8 Other disorders of electrolyte and fluid balance, not elsewhere classified; D47.3 Essential (hemorrhagic) thrombocythemia; M85.80 Other specified disorders of bone density and structure, unspecified site; M25.511 Pain in right shoulder; R50.9 Fever, unspecified
CPT/HCPCS: 36415; 70490-TC; 70553-TC; 71045-TC-FY; 71046-TC-FY; 71250-TC; 72128-TC; 72131-TC; 74021-TC-FY; 76942-TC; 78306-TC; 80048; 80053; 81003; 81015; 82533; 82570; 82962; 83036; 83930; 83935; 84300; 84443; 85025; 85027; 85610; 85730; 87040; 87086; 88307-TC; 88341-TC; 93005; 93010; 94760; 97116-GP; 97161-GP; 99285-25; A9503; J1644; J7030

== ENCOUNTER 2018-08-08 07:08 | Day surgery (SDC) | payer OTHER ==
[2018-08-08] MEDS ORDERED: DIPHENHYDRAMINE 25 MG in SODIUM CHLORIDE 50 ML IVPB ONE (08:00)
[2018-08-08] MEDS ORDERED: ACETAMINOPHEN 325 MG TABLET (FP) PO ONE (08:00)
[2018-08-08] MEDS ORDERED: PEMBROLIZUMAB 200 MG in SODIUM CHLORIDE 50 ML IV ONE (08:30)
[2018-08-08 10:09] LABS: BASO % 0.4 % (0-2.0); EOS % 1.6 % (0-4.5); HEMATOCRIT 33.9 % (32.4-45.2); HEMOGLOBIN 11.6 GM/dL (10.7-15.3); LYMPH % 11.7 % (8-40); MCHC 34.2 g/dl (32.0-36.0); MEAN PLT VOLUME 6.4 fl (7.5-11.1); MONO % 6.6 % (3.8-10.2); NEUT % 79.7 % (42.8-82.8); PLATELET COUNT 590 K/MM3 (134-434); RBC 4.14 M/mm3 (3.60-5.2); RDW 14.2 % (11.6-15.6); WHITE BLOOD COUNT 12.1 K/mm3 (4.0-10.0)
[2018-08-08 10:55] LABS: ALBUMIN 2.6 g/dl (3.4-5.0); ALK PHOS 88 U/L (45-117); ANION GAP 10 MMOL/L (8-16); BILIRUBIN,DIRECT 0.1 mg/dL (0.0-0.2); BILIRUBIN,TOTAL 0.2 mg/dL (0.2-1); BLOOD UREA NITROGEN 9 mg/dL (7-18); CALCIUM 8.6 mg/dL (8.5-10.1); CHLORIDE 95 mmol/L (98-107); CO2 26 mmol/L (21-32); CREATININE 0.6 mg/dL (0.55-1.3); GLUCOSE,RANDOM 180 mg/dL (74-106); MAGNESIUM 1.9 mg/dL (1.8-2.4); POTASSIUM 4.5 mmol/L (3.5-5.1); SGOT/AST 13 U/L (15-37); SGPT/ALT 17 U/L (13-61); SODIUM 131 mmol/L (136-145); TOT PROT 7.1 g/dl (6.4-8.2)
[2018-08-08] MEDS ORDERED: SODIUM CHLORIDE 500 ML IV SCH (11:30)
[2018-08-08 17:58] VITALS: BP 130/55; PULSE 91; TEMP 98.1
[2018-08-08] MEDS ORDERED: PORTA CATH FLUSH 10 ML IVPUSH ONE (17:58)
== END 2018-08-08 15:10 | disposition home or self-care (01) ==
LOC: JONCCHEMO 07:08 → J7W 11:19 → JONCCHEMO 15:10
PROVIDERS: ATTEND Internal Medicine Hematology & Oncology
DX: Z51.11 Encounter for antineoplastic chemotherapy (principal); C34.31 Malignant neoplasm of lower lobe, right bronchus or lung; C79.2 Secondary malignant neoplasm of skin; C79.49 Secondary malignant neoplasm of other parts of nervous system; E11.9 Type 2 diabetes mellitus without complications; Z79.4 Long term (current) use of insulin
CPT/HCPCS: 36415; 80048; 80076; 83735; 84436; 84439; 84443; 85025; 96361; 96375; 96413; J7030; J9271

== ENCOUNTER 2018-08-28 07:04 | Day surgery (SDC) | payer OTHER ==
[2018-08-28 09:46] LABS: BASO % 0.5 % (0-2.0); EOS % 1.4 % (0-4.5); HEMATOCRIT 31.3 % (32.4-45.2); HEMOGLOBIN 10.8 GM/dL (10.7-15.3); LYMPH % 10.2 % (8-40); MCH 27.6 pg (25.7-33.7); MCHC 34.4 g/dl (32.0-36.0); MEAN CELL VOLUME 80.1 fl (80-96); MEAN PLT VOLUME 6.4 fl (7.5-11.1); MONO % 7.3 % (3.8-10.2); NEUT % 80.6 % (42.8-82.8); PLATELET COUNT 646 K/MM3 (134-434); RBC 3.91 M/mm3 (3.60-5.2); RDW 14.4 % (11.6-15.6); WHITE BLOOD COUNT 14.3 K/mm3 (4.0-10.0)
[2018-08-28] MEDS ORDERED: DIPHENHYDRAMINE 25 MG in SODIUM CHLORIDE 50 ML IVPB ONE (10:00)
[2018-08-28] MEDS ORDERED: ACETAMINOPHEN 325 MG TABLET (FP) PO PRN (10:00)
[2018-08-28] MEDS ORDERED: PEMBROLIZUMAB 200 MG in SODIUM CHLORIDE 50 ML IV ONE (10:30)
[2018-08-28 10:40] LABS: ALBUMIN 2.2 g/dl (3.4-5.0); ALK PHOS 138 U/L (45-117); ANION GAP 7 MMOL/L (8-16); BILIRUBIN,DIRECT 0.1 mg/dL (0.0-0.2); BILIRUBIN,TOTAL 0.4 mg/dL (0.2-1); BLOOD UREA NITROGEN 10 mg/dL (7-18); CALCIUM 8.7 mg/dL (8.5-10.1); CHLORIDE 89 mmol/L (98-107); CO2 29 mmol/L (21-32); CREATININE 0.5 mg/dL (0.55-1.3); GLUCOSE,RANDOM 170 mg/dL (74-106); POTASSIUM 4.7 mmol/L (3.5-5.1); SGOT/AST 10 U/L (15-37); SGPT/ALT 14 U/L (13-61); SODIUM 126 mmol/L (136-145); TOT PROT 7.2 g/dl (6.4-8.2)
[2018-08-28] MEDS ORDERED: FENTANYL PATCH WASTE TD PRN (11:49)
[2018-08-28] MEDS ORDERED: fentaNYL 25mcg/hr PATCH.TD72 TD SCH (12:00)
[2018-08-28] MEDS ORDERED: SODIUM CHLORIDE 500 ML IV ONE (12:00)
[2018-08-28] MEDS ORDERED: PORTA CATH FLUSH 10 ML IVPUSH ONE (18:36)
[2018-08-28 18:37] VITALS: BP 130/63; PULSE 113; TEMP 98.5
== END 2018-08-28 16:00 | disposition home or self-care (01) ==
LOC: JONCCHEMO 07:04 → J7W 11:38 → JONCCHEMO 16:00
PROVIDERS: ATTEND Internal Medicine Hematology & Oncology
DX: Z51.11 Encounter for antineoplastic chemotherapy (principal); C34.31 Malignant neoplasm of lower lobe, right bronchus or lung; C79.2 Secondary malignant neoplasm of skin; C79.49 Secondary malignant neoplasm of other parts of nervous system; E11.9 Type 2 diabetes mellitus without complications; Z79.84 Long term (current) use of oral hypoglycemic drugs
CPT/HCPCS: 36415; 80048; 80076; 83735; 85025; 96361; 96367; 96375; 96413; J9271

== ENCOUNTER 2018-09-18 07:04 | Day surgery (SDC) | payer OTHER ==
[2018-09-18] MEDS ORDERED: DIPHENHYDRAMINE 25 MG in SODIUM CHLORIDE 50 ML IVPB ONE (08:00)
[2018-09-18] MEDS ORDERED: ACETAMINOPHEN 325 MG TABLET (FP) PO ONE (08:00)
[2018-09-18] MEDS ORDERED: PEMBROLIZUMAB 200 MG in SODIUM CHLORIDE 50 ML IV ONE (08:30)
[2018-09-18 11:23] LABS: BASO % 0.5 % (0-2.0); EOS % 2.1 % (0-4.5); HEMATOCRIT 35.3 % (32.4-45.2); HEMOGLOBIN 11.5 GM/dL (10.7-15.3); MCH 26.2 pg (25.7-33.7); MCHC 32.5 g/dl (32.0-36.0); MEAN CELL VOLUME 80.5 fl (80-96); MONO % 4.4 % (3.8-10.2); PLATELET COUNT 516 K/MM3 (134-434); RBC 4.39 M/mm3 (3.60-5.2); RDW 15.7 % (11.6-15.6); WHITE BLOOD COUNT 12.5 K/mm3 (4.0-10.0)
[2018-09-18 11:51] LABS: ALBUMIN 2.5 g/dl (3.4-5.0); ALK PHOS 103 U/L (45-117); ANION GAP 6 MMOL/L (8-16); BILIRUBIN,DIRECT 0.1 mg/dL (0.0-0.2); BILIRUBIN,TOTAL 0.2 mg/dL (0.2-1); BLOOD UREA NITROGEN 9 mg/dL (7-18); CALCIUM 8.7 mg/dL (8.5-10.1); CHLORIDE 95 mmol/L (98-107); CO2 29 mmol/L (21-32); CREATININE 0.5 mg/dL (0.55-1.3); GLUCOSE,RANDOM 160 mg/dL (74-106); POTASSIUM 4.5 mmol/L (3.5-5.1); SGOT/AST 15 U/L (15-37); SGPT/ALT 15 U/L (13-61); SODIUM 131 mmol/L (136-145); TOT PROT 7.5 g/dl (6.4-8.2); TOT PROT 7.6 g/dl (6.4-8.2)
[2018-09-18] MEDS ORDERED: SODIUM CHLORIDE 500 ML IV ONE (12:15)
[2018-09-18 14:53] VITALS: TEMP 98
[2018-09-18] MEDS ORDERED: PORTA CATH FLUSH 10 ML IVPUSH ONE (14:53)
[2018-09-18 15:08] VITALS: BP 126/59; PULSE 86
== END 2018-09-18 15:52 | disposition home or self-care (01) ==
LOC: JONCCHEMO 07:04 → J7W 14:25 → JONCCHEMO 15:52
PROVIDERS: ATTEND Internal Medicine Hematology & Oncology
DX: C34.31 Malignant neoplasm of lower lobe, right bronchus or lung (principal); C79.2 Secondary malignant neoplasm of skin; C79.49 Secondary malignant neoplasm of other parts of nervous system; E11.9 Type 2 diabetes mellitus without complications; Z79.4 Long term (current) use of insulin
CPT/HCPCS: 36415; 80053; 80076; 83735; 85025; 96361; 96375; 96413; J9271

== ENCOUNTER 2018-10-09 07:13 | Day surgery (SDC) | payer OTHER ==
[2018-10-09] MEDS ORDERED: ACETAMINOPHEN 325 MG TABLET (FP) PO ONE (10:00)
[2018-10-09] MEDS ORDERED: DIPHENHYDRAMINE 25 MG in SODIUM CHLORIDE 50 ML IVPB ONE (10:00)
[2018-10-09] MEDS ORDERED: PEMBROLIZUMAB 200 MG in SODIUM CHLORIDE 50 ML IV ONE (10:30)
[2018-10-09 11:22] LABS: BASO % 0.7 % (0-2.0); EOS % 5.4 % (0-4.5); HEMATOCRIT 34.5 % (32.4-45.2); HEMOGLOBIN 11.5 GM/dL (10.7-15.3); LYMPH % 21.2 % (8-40); MCH 26.7 pg (25.7-33.7); MCHC 33.3 g/dl (32.0-36.0); MEAN CELL VOLUME 80.3 fl (80-96); MEAN PLT VOLUME 6.8 fl (7.5-11.1); NEUT % 66.7 % (42.8-82.8); PLATELET COUNT 447 K/MM3 (134-434); RDW 18.4 % (11.6-15.6); WHITE BLOOD COUNT 9.1 K/mm3 (4.0-10.0)
[2018-10-09 11:52] LABS: ALBUMIN 2.9 g/dl (3.4-5.0); ALK PHOS 114 U/L (45-117); ANION GAP 7 MMOL/L (8-16); BILIRUBIN,TOTAL 0.2 mg/dL (0.2-1); BLOOD UREA NITROGEN 9 mg/dL (7-18); CHLORIDE 98 mmol/L (98-107); CO2 28 mmol/L (21-32); CREATININE 0.6 mg/dL (0.55-1.3); GLUCOSE,RANDOM 195 mg/dL (74-106); POTASSIUM 4.3 mmol/L (3.5-5.1); SGPT/ALT 11 U/L (13-61); SODIUM 133 mmol/L (136-145); TOT PROT 7.6 g/dl (6.4-8.2)
[2018-10-09 12:11] LABS: SGOT/AST 10 U/L (15-37)
[2018-10-09 12:38] LABS: ALBUMIN 2.9 g/dl (3.4-5.0); BILIRUBIN,DIRECT 0.1 mg/dL (0.0-0.2); BILIRUBIN,TOTAL 0.4 mg/dL (0.2-1); MAGNESIUM 1.7 mg/dL (1.8-2.4); TOT PROT 7.7 g/dl (6.4-8.2)
[2018-10-09 15:12] VITALS: TEMP 98.1
[2018-10-09] MEDS ORDERED: PORTA CATH FLUSH 10 ML IVPUSH ONE (15:12)
[2018-10-09 15:14] VITALS: BP 116/60; PULSE 80
== END 2018-10-09 13:10 | disposition home or self-care (01) ==
LOC: JONCCHEMO 07:13 → J7W 11:49 → JONCCHEMO 13:10
PROVIDERS: ATTEND Internal Medicine Hematology & Oncology
PROC: 3E04305 Introduction of Other Antineoplastic into Central Vein, Percutaneous Approach (ICD-10-PCS; principal; 2018-10-09)
PROC: 3E043GC Introduction of Other Therapeutic Substance into Central Vein, Percutaneous Approach (ICD-10-PCS; 2018-10-09)
DX: Z51.11 Encounter for antineoplastic chemotherapy (principal); C34.31 Malignant neoplasm of lower lobe, right bronchus or lung; E11.9 Type 2 diabetes mellitus without complications; H40.9 Unspecified glaucoma; Z79.4 Long term (current) use of insulin
CPT/HCPCS: 36415; 80053; 80076; 83735; 85025; 96375; 96413; J9271

== ENCOUNTER 2018-10-30 07:07 | Day surgery (SDC) | payer OTHER ==
[2018-10-30] MEDS ORDERED: SODIUM CHLORIDE 250 ML IV ONE ×2 (08:00→10:15)
[2018-10-30] MEDS ORDERED: PALONOSETRON HCL 0.25 MG/5 ML VIAL IVPUSH ONE (08:30)
[2018-10-30] MEDS ORDERED: DEXAMETHASONE SODIUM PHOSPHATE 10 MG in SODIUM CHLORIDE 50 ML IVPB ONE (08:30)
[2018-10-30] MEDS ORDERED: PEMBROLIZUMAB 200 MG in SODIUM CHLORIDE 50 ML IV ONE (09:00)
[2018-10-30] MEDS ORDERED: PEMETREXED DISODIUM IVPB ONE (09:30)
[2018-10-30] MEDS ORDERED: SODIUM CHLORIDE IVPB ONE ×2 (09:30→09:45)
[2018-10-30] MEDS ORDERED: CARBOPLATIN IVPB ONE (09:45)
[2018-10-30 12:14] LABS: BASO % 0.7 % (0-2.0); EOS % 3.6 % (0-4.5); HEMATOCRIT 34.4 % (32.4-45.2); HEMOGLOBIN 11.2 GM/dL (10.7-15.3); LYMPH % 21.7 % (8-40); MCH 26.6 pg (25.7-33.7); MCHC 32.7 g/dl (32.0-36.0); MEAN CELL VOLUME 81.5 fl (80-96); MEAN PLT VOLUME 6.3 fl (7.5-11.1); MONO % 6.9 % (3.8-10.2); NEUT % 67.1 % (42.8-82.8); PLATELET COUNT 519 K/MM3 (134-434); RBC 4.22 M/mm3 (3.60-5.2); WHITE BLOOD COUNT 9.8 K/mm3 (4.0-10.0)
[2018-10-30 12:42] LABS: ALBUMIN 2.8 g/dl (3.4-5.0); ALK PHOS 110 U/L (45-117); ANION GAP 6 MMOL/L (8-16); BILIRUBIN,TOTAL 0.2 mg/dL (0.2-1); BLOOD UREA NITROGEN 12 mg/dL (7-18); CALCIUM 9.4 mg/dL (8.5-10.1); CHLORIDE 99 mmol/L (98-107); CO2 28 mmol/L (21-32); CREATININE 0.6 mg/dL (0.55-1.3); GLUCOSE,RANDOM 136 mg/dL (74-106); POTASSIUM 4.8 mmol/L (3.5-5.1); SGOT/AST 16 U/L (15-37); SGPT/ALT 9 U/L (13-61); SODIUM 133 mmol/L (136-145); TOT PROT 7.9 g/dl (6.4-8.2)
[2018-10-30 12:47] LABS: ALBUMIN 2.9 g/dl (3.4-5.0); BILIRUBIN,DIRECT 0.1 mg/dL (0.0-0.2); BILIRUBIN,TOTAL 0.2 mg/dL (0.2-1); MAGNESIUM 2.1 mg/dL (1.8-2.4); TOT PROT 8.1 g/dl (6.4-8.2)
[2018-10-30 14:27] LABS: ANISOCYTOSIS 1+; MACROCYTOSIS 1+; PLATELET ESTIMATE INCREASED
[2018-10-30 18:24] VITALS: BP 159/59; PULSE 91; TEMP 98.1
== END 2018-10-30 18:15 | disposition home or self-care (01) ==
LOC: JONCCHEMO 07:07 → J7W 14:02 → JONCCHEMO 18:15
PROVIDERS: ATTEND Internal Medicine Hematology & Oncology
DX: Z51.11 Encounter for antineoplastic chemotherapy (principal); C34.31 Malignant neoplasm of lower lobe, right bronchus or lung; E11.9 Type 2 diabetes mellitus without complications; Z79.4 Long term (current) use of insulin
CPT/HCPCS: 36415; 80053; 80076; 83735; 84439; 84443; 85025; 96361; 96411; 96413; 96417; J2469; J9271; J9305

== ENCOUNTER 2018-10-31 06:59 | Day surgery (SDC) | payer OTHER ==
[2018-10-31] MEDS ORDERED: PEGFILGRASTIM 6 MG/0.6 ML DISP.SYRIN SQ ONE (08:00)
[2018-10-31 15:51] VITALS: BP 123/66; PULSE 81; TEMP 98.2
== END 2018-10-31 13:50 | disposition home or self-care (01) ==
LOC: JONCCHEMO 06:59 → J7W 13:15 → JONCCHEMO 13:50
PROVIDERS: ATTEND Internal Medicine Hematology & Oncology
PROC: 3E013GC Introduction of Other Therapeutic Substance into Subcutaneous Tissue, Percutaneous Approach (ICD-10-PCS; principal; 2018-10-31)
DX: C34.31 Malignant neoplasm of lower lobe, right bronchus or lung (principal); Z76.89 Persons encountering health services in other specified circumstances; E11.9 Type 2 diabetes mellitus without complications; Z79.4 Long term (current) use of insulin
CPT/HCPCS: 96372; J2505

== ENCOUNTER 2018-11-20 07:03 | Day surgery (SDC) | payer OTHER ==
[2018-11-20] MEDS ORDERED: SODIUM CHLORIDE 250 ML IV ONE ×2 (08:00→09:16)
[2018-11-20] MEDS ORDERED: CYANOCOBALAMIN (VITAMIN B-12) 1000 MCG/1 ML VIAL IM ONE (08:30)
[2018-11-20] MEDS ORDERED: FOSAPREPITANT DIMEGLUMINE 150 MG in SODIUM CHLORIDE 145 ML IVPB ONE (08:30)
[2018-11-20] MEDS ORDERED: DEXAMETHASONE SODIUM PHOSPHATE 12 MG in SODIUM CHLORIDE 50 ML IVPB ONE (08:30)
[2018-11-20] MEDS ORDERED: PALONOSETRON HCL 0.25 MG/5 ML VIAL IVPUSH ONE (08:30)
[2018-11-20] MEDS ORDERED: PEMBROLIZUMAB 200 MG in SODIUM CHLORIDE 50 ML IV ONE (09:00)
[2018-11-20] MEDS ORDERED: PEMETREXED DISODIUM IVPB ONE (09:30)
[2018-11-20] MEDS ORDERED: SODIUM CHLORIDE IVPB ONE ×2 (09:30→09:45)
[2018-11-20] MEDS ORDERED: CARBOPLATIN IVPB ONE (09:45)
[2018-11-20 12:18] LABS: BASO % 0.4 % (0-2.0); EOS % 5.2 % (0-4.5); HEMATOCRIT 33.8 % (32.4-45.2); HEMOGLOBIN 10.9 GM/dL (10.7-15.3); LYMPH % 17.9 % (8-40); MCH 26.2 pg (25.7-33.7); MCHC 32.1 g/dl (32.0-36.0); MEAN CELL VOLUME 81.5 fl (80-96); MEAN PLT VOLUME 6.2 fl (7.5-11.1); MONO % 9.2 % (3.8-10.2); NEUT % 67.3 % (42.8-82.8); PLATELET COUNT 650 K/MM3 (134-434); RBC 4.15 M/mm3 (3.60-5.2); RDW 21.4 % (11.6-15.6); WHITE BLOOD COUNT 11.1 K/mm3 (4.0-10.0)
[2018-11-20 12:50] LABS: ALBUMIN 2.8 g/dl (3.4-5.0); ALK PHOS 103 U/L (45-117); ANION GAP 7 MMOL/L (8-16); BILIRUBIN,DIRECT 0.1 mg/dL (0.0-0.2); BILIRUBIN,TOTAL 0.1 mg/dL (0.2-1); BLOOD UREA NITROGEN 8 mg/dL (7-18); CHLORIDE 100 mmol/L (98-107); CO2 30 mmol/L (21-32); CREATININE 0.5 mg/dL (0.55-1.3); GLUCOSE,RANDOM 104 mg/dL (74-106); MAGNESIUM 1.8 mg/dL (1.8-2.4); POTASSIUM 4.2 mmol/L (3.5-5.1); SGOT/AST 9 U/L (15-37); SGPT/ALT 10 U/L (13-61); SODIUM 137 mmol/L (136-145); TOT PROT 7.1 g/dl (6.4-8.2)
[2018-11-20 13:01] LABS: ANISOCYTOSIS 0; MACROCYTOSIS 0; PLATELET ESTIMATE INCREASED
[2018-11-20] MEDS ORDERED: ACETAMINOPHEN 325 MG TABLET (FP) PO ONE (15:00)
[2018-11-20] MEDS ORDERED: PORTA CATH FLUSH 10 ML IVPUSH ONE (16:09)
[2018-11-20 16:10] VITALS: TEMP 98
[2018-11-20 17:22] VITALS: BP 109/55; PULSE 78
== END 2018-11-20 17:51 | disposition home or self-care (01) ==
LOC: JONCCHEMO 07:03 → J7W 12:51 → JONCCHEMO 17:51
PROVIDERS: ATTEND Internal Medicine Hematology & Oncology
DX: Z51.11 Encounter for antineoplastic chemotherapy (principal); C34.31 Malignant neoplasm of lower lobe, right bronchus or lung; E11.9 Type 2 diabetes mellitus without complications; Z79.4 Long term (current) use of insulin
CPT/HCPCS: 36415; 80048; 80076; 83735; 84436; 84443; 85025; 96361; 96367; 96375; 96413; 96417; J1453; J2469; J9271; J9305

== ENCOUNTER 2018-11-21 07:06 | Day surgery (SDC) | payer OTHER ==
[2018-11-21] MEDS ORDERED: PEGFILGRASTIM 6 MG/0.6 ML DISP.SYRIN SQ ONE (09:00)
[2018-11-21 18:30] VITALS: BP 134/65; PULSE 81; TEMP 98.3
== END 2018-11-21 17:25 | disposition home or self-care (01) ==
LOC: JONCCHEMO 07:06 → J7W 16:59 → JONCCHEMO 17:25
PROVIDERS: ATTEND Internal Medicine Hematology & Oncology
PROC: 3E013GC Introduction of Other Therapeutic Substance into Subcutaneous Tissue, Percutaneous Approach (ICD-10-PCS; principal; 2018-11-21)
DX: C34.11 Malignant neoplasm of upper lobe, right bronchus or lung (principal); E11.9 Type 2 diabetes mellitus without complications; Z79.4 Long term (current) use of insulin
CPT/HCPCS: 96372; J2505

== ENCOUNTER 2018-12-11 07:08 | Day surgery (SDC) | payer OTHER ==
[2018-12-11] MEDS ORDERED: SODIUM CHLORIDE 250 ML IV ONE ×2 (09:00→11:40)
[2018-12-11] MEDS ORDERED: DEXAMETHASONE SODIUM PHOSPHATE 12 MG in SODIUM CHLORIDE 50 ML IVPB ONE (10:00)
[2018-12-11] MEDS ORDERED: FOSAPREPITANT DIMEGLUMINE 150 MG in SODIUM CHLORIDE 150 ML IVPB ONE (10:00)
[2018-12-11] MEDS ORDERED: PALONOSETRON HCL 0.25 MG/5 ML VIAL IVPUSH ONE (10:00)
[2018-12-11] MEDS ORDERED: CYANOCOBALAMIN (VITAMIN B-12) 1000 MCG/1 ML VIAL IM ONE (10:00)
[2018-12-11] MEDS ORDERED: PEMBROLIZUMAB 200 MG in SODIUM CHLORIDE 50 ML IV ONE (10:30)
[2018-12-11] MEDS ORDERED: PEMETREXED DISODIUM IVPB ONE (11:00)
[2018-12-11] MEDS ORDERED: SODIUM CHLORIDE IVPB ONE ×2 (11:00→11:10)
[2018-12-11] MEDS ORDERED: CARBOPLATIN IVPB ONE (11:10)
[2018-12-11 12:28] LABS: BASO % 0.4 % (0-2.0); EOS % 3.6 % (0-4.5); HEMATOCRIT 34.7 % (32.4-45.2); HEMOGLOBIN 11.1 GM/dL (10.7-15.3); LYMPH % 18.3 % (8-40); MCH 27.2 pg (25.7-33.7); MCHC 31.9 g/dl (32.0-36.0); MEAN CELL VOLUME 85.4 fl (80-96); MEAN PLT VOLUME 6.5 fl (7.5-11.1); MONO % 7.8 % (3.8-10.2); NEUT % 69.9 % (42.8-82.8); PLATELET COUNT 553 K/MM3 (134-434); RBC 4.07 M/mm3 (3.60-5.2); RDW 20.9 % (11.6-15.6); WHITE BLOOD COUNT 11.2 K/mm3 (4.0-10.0)
[2018-12-11] MEDS ORDERED: FENTANYL PATCH WASTE TD PRN (12:48)
[2018-12-11] MEDS ORDERED: fentaNYL 25mcg/hr PATCH.TD72 TD SCH (13:00)
[2018-12-11] MEDS ORDERED: fentaNYL 12mcg/hr PATCH.TD72 TD SCH (13:00)
[2018-12-11 13:10] LABS: ALBUMIN 3.2 g/dl (3.4-5.0); BILIRUBIN,TOTAL 0.2 mg/dL (0.2-1); CALCIUM 9.4 mg/dL (8.5-10.1); CREATININE 0.6 mg/dL (0.55-1.3); MAGNESIUM 2.2 mg/dL (1.8-2.4); POTASSIUM 4.2 mmol/L (3.5-5.1); TOT PROT 7.7 g/dl (6.4-8.2)
[2018-12-11 13:23] LABS: ANISOCYTOSIS 1+; MACROCYTOSIS 1+; OVALOCYTE 1+; PLATELET ESTIMATE INCREASED
[2018-12-11] MEDS ORDERED: oxyCODONE HCL 5 MG TABLET PO ONE (13:30)
[2018-12-11 17:42] VITALS: PULSE 77
[2018-12-11] MEDS ORDERED: PORTA CATH FLUSH 10 ML IVPUSH ONE (17:42)
[2018-12-11 17:43] VITALS: BP 126/78; TEMP 98.1
== END 2018-12-11 17:45 | disposition home or self-care (01) ==
LOC: JONCCHEMO 07:08 → J7W 14:03 → JONCCHEMO 17:45
PROVIDERS: ATTEND Internal Medicine Hematology & Oncology
PROC: 3E04305 Introduction of Other Antineoplastic into Central Vein, Percutaneous Approach (ICD-10-PCS; principal; 2018-12-11)
PROC: 3E043GC Introduction of Other Therapeutic Substance into Central Vein, Percutaneous Approach (ICD-10-PCS; 2018-12-11)
PROC: 3E0437Z Introduction of Electrolytic and Water Balance Substance into Central Vein, Percutaneous Approach (ICD-10-PCS; 2018-12-11)
DX: Z51.11 Encounter for antineoplastic chemotherapy (principal); C34.11 Malignant neoplasm of upper lobe, right bronchus or lung
CPT/HCPCS: 36415; 80053; 83735; 85025; 96367; 96372; 96375; 96413; 96417; J1453; J2469; J9271; J9305

== ENCOUNTER 2018-12-12 07:24 | Day surgery (SDC) | payer OTHER ==
[2018-12-12] MEDS ORDERED: PEGFILGRASTIM 6 MG/0.6 ML DISP.SYRIN SQ ONE (10:00)
[2018-12-12 15:58] VITALS: BP 137/60; PULSE 78; TEMP 98.7
== END 2018-12-12 15:40 | disposition home or self-care (01) ==
LOC: JONCCHEMO 07:24 → J7W 15:30 → JONCCHEMO 15:40
PROVIDERS: ATTEND Internal Medicine Hematology & Oncology
PROC: 3E013GC Introduction of Other Therapeutic Substance into Subcutaneous Tissue, Percutaneous Approach (ICD-10-PCS; principal; 2018-12-12)
DX: C34.11 Malignant neoplasm of upper lobe, right bronchus or lung (principal); Z76.89 Persons encountering health services in other specified circumstances
CPT/HCPCS: 96372; J2505

== ENCOUNTER 2018-12-29 13:30 | Emergency (ER) | payer OTHER ==
[2018-12-29 13:43] VITALS: TEMP 97.8; BMI 27.3
[2018-12-29] MEDS ORDERED: ACETAMINOPHEN 1000 MG/100 ML VIAL (NON FORMULARY) IVPB ONE (15:11)
[2018-12-29] MEDS ORDERED: morphine CARPU-JECT 4 MG/1 ML DISP.SYRIN IVPUSH ONE (15:11)
--- NOTE | 2018-12-29 15:13 | PDOC ---
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 She states that the pain actually started at the site of a Neupogen injection 3 weeks ago. She states she has had mild allergic reactions to the injections before and has needed Benadryl, but they have never hurt this long or this bad. She denies any new f/c/n/v/d/c, dysuria, abdominal pain, chest pain , SOB, neck or upper back pain, dizziness/lightheadedness, or other symptoms. Past History - Past Medical History Allergies/Adverse Reactions: Allergies Allergy/AdvReac Type Severity Reaction Status Date / Time No Known Allergies Allergy Verified 12/29/18 13:43 Home Medications: Ambulatory Orders Meclizine HCl [Antivert -] 12.5 mg PO BID PRN 07/25/18 Omeprazole 40 mg PO DAILY 07/25/18 Rosuvastatin [Crestor -] 10 mg PO DAILY 07/25/18 metFORMIN HCL [Metformin ER Osmotic] 500 mg PO BIDAC 07/25/18 Docusate Sodium [Colace -] 100 mg PO TID #90 capsule 07/31/18 Folic Acid - 1 mg PO DAILY #30 tablet 07/31/18 Morphine *Sr* [Ms Contin -] 15 mg PO BID #10 tablet.sa MDD 2 07/31/18 Morphine *Sr* [Ms Contin -] 15 mg PO BID #60 tablet.sa MDD 2 07/31/18 Polyethylene Glycol 3350 [Miralax 119 gm Btl -] 17 gm PO DAILY #1 bottle Sennosides [Senna -] 2 tab PO HS #60 tablet 07/31/18 Sitagliptin Phosphate [Januvia -] 100 mg PO DAILY@0700 #30 ud 07/31/18 oxyCODONE HCL [Roxicodone -] 5 mg PO Q4H PRN #30 tablet MDD 6 07/31/18 FENTANYL 25mcg PATCH [DURAGESIC 25mcg PATCH -] 1 patch TD Q72H PRN #3 patch.td72 MDD 1 12/29/18 Cancer: Yes (LUNG) COPD: No Diabetes: Yes (Type 2) GI Disorders: Yes (DIVERTICULITIS WITH ABSCESS AND DRAINAGE) Hypercholesterolemia: Yes - Suicide/Smoking/Psychosocial Hx Smoking History: Never smoked Have you smoked in the past 12 months: No If you are a former smoker, when did you quit?: 3 yrs ago Hx Alcohol Use: No Drug/Substance Use Hx: No Substance Use Type: None Review of Systems - Review of Systems Able to Perform ROS?: Yes Comments:: 12/29/18 15:16 GEN: no fever, chills, malaise, generalized weakness, or weight change HEENT: no ear pain, sore throat, vision change, or eye pain CV: no chest pain, palpitations, lightheadedness, syncope, or edema RESP: no cough, wheezing, or SOB GI: no abdominal pain, nausea, vomiting, diarrhea, constipation, or white/black/ bloody stool : no dysuria, hematuria, incontinence, retention, bleeding, or discharge MSK: low back pain, left hip pain, left leg pain, no neck pain, muscle weakness/ pain, or joint swelling/pain NEURO: no headache, seizure, vertigo, numbness, tingling, or focal weakness PSYCH: no substance use, no behavior change SKIN: no jaundice, no rash ROS otherwise negative except as noted in HPI *Physical Exam - Vital Signs Last Vital Signs Temp Pulse Resp BP Pulse Ox 97.8 F 85 18 152/74 100 12/29/18 13:40 12/29/18 13:40 12/29/18 13:40 12/29/18 13:40 12/29/18 13:40 - Physical Exam Comments: 12/29/18 15:16 GENERAL: very pleasant elderly Vietnamese-speaking female, tearful and holding left hip in left hand, laying on right side on hospital bed, A/Ox4, moderate distress, answers questions appropriately, accompanied by family HEENT: PERRLA, EOMI, moist mucous membranes NECK/BACK: no midline ttp of C/T/L spine including at the L5-S1 area, no spinal stepoff or deformity, including at the L5-S1 area, no hematoma, full ROM, neck supple CARDIOVASCULAR: regular rate/rhythm, normal S1S2, no MGR, strong peripheral pulses, capillary refill <2 seconds, extremities wwp, no edema LUNGS/RESPIRATORY: no respiratory distress, CTAB GI/ABDOMEN: symmetric [id number], normoactive BS, soft, no ttp, no midline pulsatile masses : no CVA tenderness EXTREMITIES: diffuse mild tenderness to palpation of left lateral hip, able to actively range the left hip, able to bear weight and walks with limp, pulses palpable distally, no muscle atrophy, no acute deformity SKIN: warm and dry, no pallor, no jaundice, no rash, no bruising, no skin breakdown, no cuts, no lesions NEUROLOGICAL: GCS 15, CN II-XII grossly intact, 5/5 strength proximally and distally, no facial droop ED Treatment Course - LABORATORY CBC & Chemistry Diagram: 12/29/18 15:33 12/29/18 15:33 Medical Decision Making - Medical Decision Making 12/29/18 15:18 78YOF p/w progressive left hip/left low back pain radiating to LLE in the setting of regular chemo/neupogen tx for lung CA. Initial Vital Signs Temp Pulse Resp BP Pulse Ox 97.8 F 85 18 152/74 100 12/29/18 13:40 12/29/18 13:40 12/29/18 13:40 12/29/18 13:40 12/29/18 13:40 Exam: As noted in Physical Exam section. DDX IBNLT: metastatic disease with lesion in hip or low back, pathologic hip/ pelvis/femur fxr, avascular necrosis of hip, septic joint, hip effusion, hip dislocation, thigh hematoma, compartment syndrome, sprain/strain, contusion, etc. W/U ordered: XR hip/pelvis/femur/knee CBCD CMP Cardiac Panel Coags T&S UA UCx EKG CXR TX ordered: IV Ofirmev Morphine NPO until further notice. CXR: Nothing acute; hilar lymphadenopathy similar to prior. Right Hip/Pelvis XR: Nothing acute Laboratory Tests 12/29/18 12/29/18 12/29/18 15:33 15:33 15:47 WBC 10.9 H RBC 3.83 Hgb 11.2 Hct 33.6 MCV 87.6 MCH 29.2 MCHC 33.4 RDW 19.0 H Plt Count 561 H D MPV 6.5 L Absolute Neuts (auto) 6.7 Neutrophils % 61.5 D Lymphocytes % 22.5 D Monocytes % 11.2 H Eosinophils % 4.4 D Basophils % 0.4 Nucleated RBC % 0 Platelet Estimate Adequate Platelet Comment Plts.reviewed Sodium 139 Potassium 4.0 Chloride 104 Carbon Dioxide 29 Anion Gap 6 L BUN 10.2 Creatinine 0.6 Est GFR (CKD-EPI)AfAm 102.62 Est GFR (CKD-EPI)NonAf 88.54 Random Glucose 74 Calcium 9.3 Phosphorus 2.9 Magnesium 2.0 Total Bilirubin 0.1 L AST 11 L ALT 12 L Alkaline Phosphatase 126 H Total Protein 7.4 Albumin 3.2 L Urine Color Yellow Urine Appearance Clear Urine pH 7.0 D Ur Specific [place] 1.004 L Urine Protein Negative Urine Glucose (UA) Negative Urine Ketones Negative Urine Blood Negative Urine Nitrite Negative Urine Bilirubin Negative Urine Urobilinogen 0.2 Ur Leukocyte Esterase Negative Vital Signs Temperature 97.8 F 12/29/18 13:40 Pulse Rate 94 H 12/29/18 18:44 Respiratory Rate 20 12/29/18 18:44 Blood Pressure 123/57 L 12/29/18 18:44 O2 Sat by Pulse Oximetry (%) 97 12/29/18 18:44 Reassessment: Patient states feeling much better, she is seen walking in the Holding area without issue or assistance. She wants to go home, already has new Fentanyl patch on. E-Rx for Fentanyl patches has been sent to patient's pharmacy by Dr. Salgado as she ran out of her home Fentanyl patches. She is instructed on proper use of the patches to stay in control of her pain proactively. She will take OTC pain medications as previously instructed and is counseled on their use as well. Family understands and states she has an appointment with Dr. Kerr tomorrow and will see her PCP this week. Specific return precautions discussed and she will return to the ED if needed. *DC/Admit/Observation/Transfer Diagnosis at time of Disposition: Metastatic lung cancer (metastasis from lung to other site) Qualifiers: Laterality: left Qualified Code(s): C34.92 - Malignant neoplasm of unspecified part of left bronchus or lung Low back pain Qualifiers: Chronicity: acute Back pain laterality: left Sciatica presence: with sciatica Sciatica laterality: sciatica of left side Qualified Code(s): M54.42 - Lumbago with sciatica, left side - Discharge Dispostion Disposition: HOME Condition at time of disposition: Stable Decision to Admit order: No - Prescriptions Prescriptions: FENTANYL 25mcg PATCH [DURAGESIC 25mcg PATCH -] 1 patch TD Q72H PRN #3 patch.td72 MDD 1 PRN Reason: Pain - Referrals Referrals: Godfrey Dumont MD [Primary Care Provider] - - Patient Instructions Additional Instructions: You were seen in the ER for low back pain, hip pain, and leg pain. We did an exam, imaging studies, labs, and an electrocardiogram. We do not see any new concerning results. After our assessment, we do not believe you are having a medical emergency at this time, and we believe you are safe to go home. Please follow up with your primary care provider in 1-3 days, and with Dr. Kerr this week as well. Call their clinic, tell them you were seen in the ER, and tell them you need a follow-up. You need to take pain medication like Tylenol or Motrin to stay on top of your pain. You also need to make sure that you have a good supply of your Fentanyl patches to stay in control of your pain. Be sure to talk with your doctors about your pain control plan this week. 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 If you have any new or worsening symptoms, please come back to the ER at any time (24 hours a day). Especially come back if you have severe pain you are unable to control with the above pain regimen, or if you have fever, severe abdominal pain, or other concerning emergency symptoms. If you are having severe or life threatening symptoms, or symptoms that make it unsafe to drive or have someone drive you, please call 911. Usted fue atendido en la ahsan de emergencias por dolor lumbar, dolor en la cadera y dolor en las piernas. Hicimos un examen, estudios de imagen, laboratorios y un electrocardiograma. No vemos ningn nuevo resultado relativo. Despus de nuestra evaluacin, no creemos que tenga sarah emergencia mdica en sadia momento, y creemos que puede irse a casa sin peligro. Por favor jluis un seguimiento con kim proveedor de atencin primaria en 1 a 3 feng, y con el Dr. Usha cullen esta semana. Llame a kim clnica, dgales que lo vieron en la ahsan de emergencias y dgales que necesita un seguimiento. Necesita bria medicamentos para el dolor senait Tylenol o Motrin para mantenerse por encima de kim dolor. Evelyn debe asegurarse de tener un buen suministro de fang parches de Fentanyl para mantener el control de kim dolor. Asegrese de hablar con fang mdicos sobre kim plan de control del dolor esta semana. Recoja los parches de Fentanyl que enviamos a kim farmacia. Si tiene algn sntoma nuevo o que empeora , vuelva a la ahsan de emergencias en cualquier momento (las 24 horas del da). Especialmente regrese si tiene un dolor intenso que no puede controlar con el rgimen de dolor anterior, o si tiene fiebre, dolor abdominal intenso u otros sntomas relacionados con la emergencia. Si tiene sntomas graves o potencialmente mortales, o sntomas que hacen que no sea seguro conducir o que alguien lo lleve, llame al 911. - Post Discharge Activity
[2018-12-29] MEDS ORDERED: ACETAMINOPHEN INJECTION 100 ML IVPB ONE (15:38)
[2018-12-29] MEDS ORDERED: MORPHINE SULFATE 2 MG/ML VIAL ONE (15:38)
[2018-12-29 16:17] LABS: BASO % 0.4 % (0-2.0); EOS % 4.4 % (0-4.5); HEMATOCRIT 33.6 % (32.4-45.2); HEMOGLOBIN 11.2 GM/dL (10.7-15.3); LYMPH % 22.5 % (8-40); MCH 29.2 pg (25.7-33.7); MCHC 33.4 g/dl (32.0-36.0); MEAN CELL VOLUME 87.6 fl (80-96); MEAN PLT VOLUME 6.5 fl (7.5-11.1); MONO % 11.2 % (3.8-10.2); NEUT % 61.5 % (42.8-82.8); RBC 3.83 M/mm3 (3.60-5.2); WHITE BLOOD COUNT 10.9 K/mm3 (4.0-10.0)
[2018-12-29 16:29] LABS: ALBUMIN 3.2 g/dl (3.4-5.0); BILIRUBIN,TOTAL 0.1 mg/dL (0.2-1); BLOOD UREA NITROGEN 10.2 mg/dL (7-18); CALCIUM 9.3 mg/dL (8.5-10.1); CREATININE 0.6 mg/dL (0.55-1.3); PHOSPHOROUS 2.9 mg/dL (2.5-4.9); TOT PROT 7.4 g/dl (6.4-8.2)
[2018-12-29 16:33] LABS: URINE APPEARANCE CLEAR; URINE BILIRUBIN NEGATIVE (NEGATIVE); URINE COLOR YELLOW; URINE GLUCOSE (UA) NEGATIVE (NEGATIVE); URINE KETONE NEGATIVE (NEGATIVE); URINE LEUK ESTERASE NEGATIVE (NEGATIVE); URINE NITRITE NEGATIVE (NEGATIVE); URINE PROTEIN NEGATIVE (NEGATIVE); URINE UROBILINOGEN 0.2 mg/dL (0.2-1.0)
--- NOTE | 2018-12-29 16:33 | PDOC ---
Documentation entered by Sydney Nielsen SCRIBE, acting as scribe for Trace Salgado MD. Trace Salgado MD: This documentation has been prepared by the scribe, Sydney Nielsen SCRIBE, under my direction and personally reviewed by me in its entirety. I confirm that the documentation accurately reflects all work, treatment, procedures, and medical decision making performed by me. Attending Attestation - Resident Resident Name: Corine Gooden - ED Attending Attestation I have performed the following: I have examined & evaluated the patient, The case was reviewed & discussed with the resident, I agree w/resident's findings & plan, Exceptions are as noted - HPI HPI: 12/29/18 15:41 The patient is a 78-year-old female with a past medical history of lung CA (on chemotherapy and Neupogen injections), HLD, DM, and chronic lower back pain, who presents to the ED with a few weeks of progressively worsening LT hip pain. Pain is 10/10 in severity with radiation down the LT leg, and associated lower back pain. Patient reports that the pain began after receiving her Neupogen injection 3 weeks ago. She has experienced mild allergic reactions in the past after receiving these injections, but she has never experienced a pain this severe before. The patient denies any fevers, chills, nausea, vomiting, diarrhea, constipation , or abdominal pain. Denies any chest pain, palpitations, or shortness of breath. Denies any urinary symptoms. Denies any weakness, dizziness, lightheadedness, or changes in strength or sensation. Allergies: NKA PCP: Dr. Dumont - Physicial Exam PE: 12/29/18 16:44 GENERAL: The patient is awake, alert, and fully oriented, Nontoxic - in no acute distress. HEAD: Normocephalic, atraumatic. EYES: extraocular movements intact, sclera anicteric, conjunctiva clear. ENT: Normal voice, Moist mucous membranes. NECK: Normal range of motion, supple LUNGS: Breath sounds equal, clear to auscultation bilaterally. No wheezes, no rhonchi, no rales. HEART: Regular rate and rhythm, normal S1 and S2 without murmur, rub or gallop. ABDOMEN: Soft, nontender, n No guarding, no rebound. . No CVA tenderness BACK: No focal bony ttp, mild diffuse ttp to lower back, mild diffuse ttp to L tbuttock - no massess, creptius or bony ttp EXTREMITIES: Normal range of motion NEUROLOGICAL: No facial assymetry, Normal speech, - Medical Decision Making 12/29/18 15:46 78y F hx of metastatic lung CA (on chemo q3W with neupogen injections) presents wit hincreased hip pain sp neuopgen injection. Pain is in the hip and radiates down to the leg. Denies any fever/chills. possible pain from metastatic disease vs sciatica no signs of neuro dysfuction including urinary or bowel incontinence pt ran out of fentanyl patches, will send a few to her pharmacy [facility] obtain imaging will reassess
[2018-12-29 17:42] LABS: PLATELET COUNT 561 K/MM3 (134-434); PLATELET ESTIMATE ADEQUATE
[2018-12-29] MEDS ORDERED: FENTANYL PATCH WASTE MC PRN (17:56)
[2018-12-29] MEDS ORDERED: fentaNYL 75mcg/hr PATCH.TD72 TD SCH (18:00)
[2018-12-29 18:45] VITALS: BP 123/57; PULSE 94
--- NOTE | 2018-12-30 11:40 | EKG ---
Test Reason : Blood Pressure : / mmHG Vent. Rate : 088 BPM Atrial Rate : 088 BPM P-R Int : 144 ms QRS Dur : 070 ms QT Int : 344 ms P-R-T Axes : 052 035 050 degrees QTc Int : 416 ms NORMAL SINUS RHYTHM NORMAL ECG WHEN COMPARED WITH ECG OF 24-JUL-2018 21:15, NO SIGNIFICANT CHANGE WAS FOUND Confirmed by WILLIAN SARMIENTO MD ([id number]) on 12/30/2018 11:40:28 AM Referred By: Confirmed By:WILLIAN SARMIENTO MD
== END 2018-12-29 18:45 | disposition home or self-care (01) ==
LOC: JER 13:30
PROC: 3E033NZ Introduction of Analgesics, Hypnotics, Sedatives into Peripheral Vein, Percutaneous Approach (ICD-10-PCS; principal; 2018-12-29)
PROC: 3E033NZ Introduction of Analgesics, Hypnotics, Sedatives into Peripheral Vein, Percutaneous Approach (ICD-10-PCS; 2018-12-29)
DX: M54.42 Lumbago with sciatica, left side (principal); C34.92 Malignant neoplasm of unspecified part of left bronchus or lung
CPT/HCPCS: 36415; 71046-TC-FY; 73523-TC-FY; 73560-TC-LT-FY; 80053; 81003; 83735; 84100; 85025; 87086; 93005; 93010; 96374; 96375; 99281-25; J0131

== ENCOUNTER 2019-01-01 05:42 | Day surgery (SDC) | payer OTHER | END 2019-01-01 17:15 | disposition home or self-care (01) | LOC: JONCCHEMO 05:42 → J7W 12:35 → JONCCHEMO 17:15 ==

== ENCOUNTER 2019-01-02 05:33 | Day surgery (SDC) | payer OTHER ==
[2019-01-02] MEDS ORDERED: PEGFILGRASTIM 6 MG/0.6 ML DISP.SYRIN SQ ONE (09:00)
[2019-01-02 15:51] VITALS: BP 112/68; PULSE 75; TEMP 98.2
== END 2019-01-02 13:45 | disposition home or self-care (01) ==
LOC: JONCCHEMO 05:33 → J7W 13:24 → JONCCHEMO 13:45
PROVIDERS: ATTEND Internal Medicine Hematology & Oncology
PROC: 3E013GC Introduction of Other Therapeutic Substance into Subcutaneous Tissue, Percutaneous Approach (ICD-10-PCS; principal; 2019-01-02)
DX: C34.11 Malignant neoplasm of upper lobe, right bronchus or lung (principal); Z76.89 Persons encountering health services in other specified circumstances
CPT/HCPCS: 96372; J2505

== ENCOUNTER 2019-01-08 07:07 | Day surgery (SDC) | payer OTHER ==
[2019-01-08] MEDS ORDERED: ZOLEDRONIC ACID 4 MG in SODIUM CHLORIDE 100 ML IVPB ONE (09:00)
[2019-01-08 11:41] LABS: BASO % 0.2 % (0-2.0); EOS % 1.3 % (0-4.5); HEMOGLOBIN 10.1 GM/dL (10.7-15.3); LYMPH % 7.8 % (8-40); MCH 29.3 pg (25.7-33.7); MCHC 33.6 g/dl (32.0-36.0); MEAN CELL VOLUME 87.4 fl (80-96); MEAN PLT VOLUME 6.8 fl (7.5-11.1); NEUT % 81.7 % (42.8-82.8); PLATELET COUNT 282 K/MM3 (134-434); RBC 3.43 M/mm3 (3.60-5.2); RDW 17.7 % (11.6-15.6); WHITE BLOOD COUNT 13.2 K/mm3 (4.0-10.0)
[2019-01-08 12:14] LABS: ALBUMIN 2.9 g/dl (3.4-5.0); BILIRUBIN,DIRECT 0.1 mg/dL (0.0-0.2); BILIRUBIN,TOTAL 0.2 mg/dL (0.2-1); BLOOD UREA NITROGEN 9.9 mg/dL (7-18); CALCIUM 8.7 mg/dL (8.5-10.1); CREATININE 0.6 mg/dL (0.55-1.3); MAGNESIUM 1.9 mg/dL (1.8-2.4); TOT PROT 7.2 g/dl (6.4-8.2)
[2019-01-08 17:15] VITALS: TEMP 98.1
[2019-01-08 17:18] VITALS: BP 116/53; PULSE 89
[2019-01-08] MEDS ORDERED: PORTA CATH FLUSH 10 ML IVPUSH ONE (17:18)
== END 2019-01-08 14:10 | disposition home or self-care (01) ==
LOC: JONCCHEMO 07:07 → J7W 13:00 → JONCCHEMO 14:10
PROVIDERS: ATTEND Internal Medicine Hematology & Oncology
PROC: 3E043GC Introduction of Other Therapeutic Substance into Central Vein, Percutaneous Approach (ICD-10-PCS; principal; 2019-01-08)
DX: C34.11 Malignant neoplasm of upper lobe, right bronchus or lung (principal)
CPT/HCPCS: 36415; 80048; 80076; 83735; 85025; 96365; 96417; J3489

== ENCOUNTER 2019-01-22 07:02 | Day surgery (SDC) | payer OTHER ==
[2019-01-22] MEDS ORDERED: SODIUM CHLORIDE 250 ML IV ONE ×2 (09:00→10:30)
[2019-01-22] MEDS ORDERED: DEXAMETHASONE SODIUM PHOSPHATE 12 MG in SODIUM CHLORIDE 50 ML IVPB ONE (09:30)
[2019-01-22] MEDS ORDERED: PEMBROLIZUMAB 200 MG in SODIUM CHLORIDE 50 ML IV ONE (10:00)
[2019-01-22 11:39] LABS: BASO % 0.7 % (0-2.0); EOS % 2.7 % (0-4.5); HEMATOCRIT 33.2 % (32.4-45.2); HEMOGLOBIN 10.9 GM/dL (10.7-15.3); LYMPH % 10.4 % (8-40); MCH 29.2 pg (25.7-33.7); MCHC 32.8 g/dl (32.0-36.0); MEAN CELL VOLUME 89.1 fl (80-96); MEAN PLT VOLUME 6.1 fl (7.5-11.1); MONO % 8.9 % (3.8-10.2); NEUT % 77.3 % (42.8-82.8); PLATELET COUNT 494 K/MM3 (134-434); RBC 3.73 M/mm3 (3.60-5.2); WHITE BLOOD COUNT 7.8 K/mm3 (4.0-10.0)
[2019-01-22 12:09] LABS: ALBUMIN 2.9 g/dl (3.4-5.0); BILIRUBIN,DIRECT 0.1 mg/dL (0.0-0.2); BILIRUBIN,TOTAL 0.2 mg/dL (0.2-1); BLOOD UREA NITROGEN 6.3 mg/dL (7-18); CALCIUM 8.9 mg/dL (8.5-10.1); CREATININE 0.8 mg/dL (0.55-1.3); MAGNESIUM 2.4 mg/dL (1.8-2.4); POTASSIUM 4.2 mmol/L (3.5-5.1); TOT PROT 7.8 g/dl (6.4-8.2)
[2019-01-22 19:04] VITALS: BP 135/67; PULSE 87; TEMP 97.9
[2019-01-22] MEDS ORDERED: PORTA CATH FLUSH 10 ML IVPUSH ONE (19:04)
== END 2019-01-22 16:15 | disposition home or self-care (01) ==
LOC: JONCCHEMO 07:02 → J7W 12:28 → JONCCHEMO 16:15
PROVIDERS: ATTEND Internal Medicine Hematology & Oncology
DX: Z51.11 Encounter for antineoplastic chemotherapy (principal); C34.11 Malignant neoplasm of upper lobe, right bronchus or lung
CPT/HCPCS: 36415; 80048; 80076; 82150; 83690; 83735; 84443; 85025; 96361; 96367; 96375; 96413; J9271

== ENCOUNTER → 2019-01-24 | Day surgery (SDC) | payer OTHER | LOC: JONCCHEMO 06:34 ==

== ENCOUNTER 2019-01-30 12:36 | Inpatient (IN) | payer OTHER ==
--- NOTE | 2019-01-30 12:45 | PDOC ---
History of Present Illness - General Chief Complaint: Syncope/Near Syncope Stated Complaint: SYNCOPE Time Seen by Provider: 01/30/19 12:44 - History of Present Illness Initial Comments: Ms. Glez is a 78F with PMH of lung adenocarcinoma on Keyuda, SIADH, metastases, DM, HLD, presenting today with two episodes of syncope this morning. Reports that she had one episode of syncope while getting out of the shower and one episode at the oncologist's office. Denies head trauma. Denies confusion after syncope. Denies heart palpitations. Reports dizziness that has been going on for the past couple of weeks. Reports nausea and vomiting over the past 2 weeks and difficulty keeping food and water down. Reports subjective fever that has been going on for the past week. Her last chemo appointment was last Monday 01/22 and her next chemo appt is . Finished radiation a couple weeks ago and next one in February. Oncologist: Dr. Usha Barkley Past History - Past Medical History Allergies/Adverse Reactions: Allergies Allergy/AdvReac Type Severity Reaction Status Date / Time No Known Allergies Allergy Verified 12/29/18 13:43 Home Medications: Ambulatory Orders Rosuvastatin [Crestor -] 10 mg PO DAILY 07/25/18 metFORMIN HCL [Metformin ER Osmotic] 500 mg PO BIDAC 07/25/18 Docusate Sodium [Colace -] 100 mg PO TID #90 capsule 07/31/18 Folic Acid - 1 mg PO DAILY #30 tablet 07/31/18 Sennosides [Senna -] 2 tab PO HS #60 tablet 07/31/18 Ondansetron HCl [Zofran] 8 mg PO QID PRN 01/30/19 Prochlorperazine Maleate [Compazine] 10 mg PO TID PRN 01/30/19 Tramadol HCl 50 mg PO ASDIR PRN 01/30/19 Cancer: Yes (LUNG) COPD: No Diabetes: Yes (Type 2) GI Disorders: Yes (DIVERTICULITIS WITH ABSCESS AND DRAINAGE) Hypercholesterolemia: Yes - Suicide/Smoking/Psychosocial Hx Smoking History: Never smoked Have you smoked in the past 12 months: No If you are a former smoker, when did you quit?: 3 yrs ago Hx Alcohol Use: No Drug/Substance Use Hx: No Substance Use Type: None Review of Systems - Review of Systems Able to Perform ROS?: Yes Is the patient limited Lithuanian proficient: Yes Constitutional: Yes: See HPI, Fever, Loss of Appetite, Malaise, Weakness. No: Chills, Diaphoresis HEENTM: Yes: See HPI. No: Eye Pain, Blurred Vision, Recent change in vision, Throat Swelling, Difficulty Swallowing, Mouth Swelling Respiratory: Yes: See HPI. No: Cough, Orthopnea, Shortness of Breath, Stridor, Wheezing Cardiac (ROS): Yes: See HPI, Lightheadedness, Syncope. No: Chest Pain, Edema, Irregular Heart Rate, Palpitations, Chest Tightness ABD/GI: Yes: See HPI, Abdominal Distended, Nausea, Vomiting. No: Abd. Pain w/ defecation : Yes: See HPI. No: Burning, Dysuria Musculoskeletal: Yes: See HPI. No: Back Pain, Joint Pain, Joint Swelling Integumentary: Yes: See HPI. No: Bruising, Dryness, Erythema Neurological: Yes: See HPI, Weakness, Dizziness. No: Headache, Numbness, Ataxia *Physical Exam - Physical Exam General Appearance: Yes: Appropriately Dressed, Cachetic. No: Apparent Distress HEENT: positive: EOMI, LAKHWINDER, Normal ENT Inspection, Normal Voice, Symmetrical, Pharynx Normal (MMM) Neck: positive: Tender, Trachea midline, Supple. negative: Rigid Respiratory/Chest: positive: Lungs Clear, Normal Breath Sounds. negative: Chest Tender, Respiratory Distress, Accessory Muscle Use Cardiovascular: positive: Regular Rhythm, Tachycardia. negative: Edema, JVD Vascular Pulses: Dorsalis-Pedis (R): 2+, Doralis-Pedis (L): 2+ Gastrointestinal/Abdominal: positive: Tender (LUQ and LLQ ), Soft (on right side ), Distended, Mass (LLQ ) Musculoskeletal: positive: Normal Inspection. negative: CVA Tenderness Extremity: positive: Normal Capillary Refill, Normal Inspection, Normal Range of Motion. negative: Tender Integumentary: positive: Normal Color, Dry, Warm Neurologic: positive: administrative office specialist II-XII NML intact, Fully Oriented, Alert, Normal Response, Motor Strength 5/5 ED Treatment Course - LABORATORY CBC & Chemistry Diagram: 01/30/19 13:26 01/30/19 13:26 Medical Decision Making - Medical Decision Making 01/30/19 1340 78F with hx of lung adenocarcinoma diagnosed 6 months ago, currently on chemotherapy (Keytruda) presenting with 2 new episodes of syncope. Concern for sepsis as patient reports fever and is tachycardic in the ED. We'll start sepsis work up, draw blood cultures and UA, and give cefepime 2g and normal saline fluid bolus 30 cc/kg. We'll obtain CT head and c-spine, CXR, CBC, CMP, TSH, cortisol. EKG shows HR 102, sinus tachycardia, no ST elevations/depressions, no axis deviations, QTc 435 ms. 01/30/19 15:35 CXR shows no acute process and no findings of pneumonia. WBC elevated at 11.7, sodium low at 134. UA shows signs of UTI, we will give 1 g of ertapenem given that patient has a hx of ESBL. 01/30/19 15:59 CT head shows no intracranial lesion or acute hemorrhage. CT c-spine shows no fracture. 01/31/19 1800 I spoke with the hospitalist economic development director who agrees to admit this patient. Also spoke with Dr. Kerr, the patient's oncologist, who asked to be consulted on the case. *DC/Admit/Observation/Transfer Diagnosis at time of Disposition: Syncope Qualifiers: Syncope type: unspecified Qualified Code(s): R55 - Syncope and collapse - Discharge Dispostion Condition at time of disposition: Stable Decision to Admit order: Yes - Referrals - Patient Instructions - Post Discharge Activity
[2019-01-30 12:46] VITALS: BMI 23.0
[2019-01-30] MEDS ORDERED: SODIUM CHLORIDE IV ONE (13:22)
[2019-01-30] MEDS ORDERED: CEFEPIME HCL/D5W 2 GM/50 ML BAG IVPB ONE (13:32)
[2019-01-30] MEDS ORDERED: ACETAMINOPHEN 1000 MG/100 ML VIAL (NON FORMULARY) IVPB ONE (13:32)
[2019-01-30] MEDS ORDERED: ACETAMINOPHEN INJECTION 100 ML IVPB ONE (13:50)
[2019-01-30 13:59] LABS: BASO % 0.6 % (0-2.0); EOS % 0.6 % (0-4.5); HEMATOCRIT 32.1 % (32.4-45.2); HEMOGLOBIN 10.6 GM/dL (10.7-15.3); LYMPH % 5.5 % (8-40); MCH 29.4 pg (25.7-33.7); MEAN CELL VOLUME 89.2 fl (80-96); MEAN PLT VOLUME 6.3 fl (7.5-11.1); MONO % 6.4 % (3.8-10.2); NEUT % 86.9 % (42.8-82.8); PLATELET COUNT 438 K/MM3 (134-434); RDW 17.7 % (11.6-15.6); VENOUS PC02 36.9 mmHg (41-51); VENOUS PH 7.46 (7.31-7.41); VENOUS PO2 75.5 mmHg (30-40); WHITE BLOOD COUNT 11.7 K/mm3 (4.0-10.0)
[2019-01-30 14:10] LABS: INR 1.18 (0.83-1.09); PROTHROMBIN TIME (PATIENT) 13.9 SEC (9.7-13.0)
[2019-01-30] MEDS ORDERED: CEFEPIME 2 GM/100 ML BAG IVPB ONE (14:10)
[2019-01-30 14:12] LABS: ACTIVATED PTT 32.8 SECONDS (25.2-36.5)
[2019-01-30] MEDS ORDERED: SODIUM CHLORIDE 500 ML IV STA (14:19)
[2019-01-30 14:34] LABS: EPI CELLS 7.4 /HPF (0-5/HPF); HYALINE CASTS 2 /lpf (0-8); PH,URINE 7.5 (5.0-8.0); URINE APPEARANCE CLEAR; URINE BACTERIA 15.9 /hpf (NEGATIVE); URINE BILIRUBIN NEGATIVE (NEGATIVE); URINE COLOR YELLOW; URINE GLUCOSE (UA) NEGATIVE (NEGATIVE); URINE KETONE NEGATIVE (NEGATIVE); URINE LEUK ESTERASE 2+ (NEGATIVE); URINE NITRITE NEGATIVE (NEGATIVE); URINE PROTEIN 2+ (NEGATIVE); URINE RBC 5 /hpf (0-4); URINE UROBILINOGEN 0.2 mg/dL (0.2-1.0); URINE WBC 31 /hpf (0-5)
[2019-01-30] MEDS ORDERED: ERTAPENEM SODIUM 1 GM in SODIUM CHLORIDE 50 ML IVPB ONE (14:54)
[2019-01-30 15:00] LABS: ALBUMIN 2.9 g/dl (3.4-5.0); BILIRUBIN,TOTAL 0.2 mg/dL (0.2-1); BLOOD UREA NITROGEN 7.9 mg/dL (7-18); CALCIUM 8.8 mg/dL (8.5-10.1); CREATININE 0.7 mg/dL (0.55-1.3); TOT PROT 7.7 g/dl (6.4-8.2)
[2019-01-30] MEDS ORDERED: ERTAPENEM SODIUM 1 GM VIAL ONE (15:11)
--- NOTE | 2019-01-30 16:55 | PDOC ---
Documentation entered by Nelson Galo SCRIBE, acting as scribe for Kevin Farnsworth MD. Kevin Farnsworth MD: This documentation has been prepared by the Iraj caballero Elijah, SCRIBE, under my direction and personally reviewed by me in its entirety. I confirm that the documentation accurately reflects all work, treatment, procedures, and medical decision making performed by me. Attending Attestation - Resident Resident Name: HongAshkan - ED Attending Attestation I have performed the following: I have examined & evaluated the patient, The case was reviewed & discussed with the resident, I agree w/resident's findings & plan, Exceptions are as noted - HPI HPI: 01/30/19 16:29 78yo F with hx lung ca on keytruda (last dose 1 week ago) presents to the ED with 2 episodes of syncope today preceded by lightheadedness. +LOC, unknown head strike with initial episode in bathtub. No LOC with syncopal episode in oncologists office. Pt sent down to ED for evaluation by Dr. Kerr after reporting syncope. Pt also reporting subjective fevers for the last week, has not checked her temperature. Also states multiple episodes of NBNB emesis since last chemo and is having trouble keeping food down. Denies chills, headache, focal weakness/numbness, cp, sob, abd pain, extremity pain, back pain. - Physicial Exam PE: 01/30/19 16:35 agree with resident exam - Medical Decision Making 01/30/19 16:35 78yo F hx lung ca on chemo presents to the ED with syncope x2 preceeded by lightheadedness in the setting of N/V and subjective fevers Low grade oral temp here, did not get rectal as pt possibly neutropenic Covered with cefepime in case of neutropenic fever Labs with no neutropenia, in fact leukocytosis to 11 Pt also found to have UTI. Has hx ESBL, thus covered with ertapenem 1G based on previous treatment here CTH/C-spine with no acute findings Likely syncope 2/2 dehydration from GI loss, poor intake, and infection Anticipate admission Heart Score/ECG Review #1 01/30/19 17:23 Twelve-lead EKG was performed and reviewed by me. Sinus tachycardia, rate 102. Normal axis and intervals. No ST elevations. Isolated TW flattening in lead III
[2019-01-30] MEDS ORDERED: SODIUM CHLORIDE 1,000 ML IV SCH (20:30)
--- NOTE | 2019-01-30 20:30 | HP ---
CHIEF COMPLAINT: fall PCP:Drooteo HISTORY OF PRESENT ILLNESS: 78yo woman with lung cancer on Keytruda c/o fall earlier today before she was about to take shower and lost her balance and fell. Denied any trauma to head or LOC. She denied any pain right now except for abdominal pain which she had earlier from lung ca mets. Pt sent down to ED for evaluation by Dr. Kerr who suspected possible syncope. Last chemo was on sun. ER course was notable for: (1) head ct (2) c spine of neck (3) Recent Travel: no PAST MEDICAL HISTORY: lung ca on keytruda (last dose 1 week ago) PAST SURGICAL HISTORY: no Social History: Smoking: no Alcohol: no Drugs: no Family History: no Allergies No Known Allergies Allergy (Verified 12/29/18 13:43) HOME MEDICATIONS: Home Medications Medication Instructions Recorded Rosuvastatin [Crestor -] 10 mg PO DAILY 07/25/18 metFORMIN HCL [Metformin ER 500 mg PO BIDAC 07/25/18 Osmotic] Docusate Sodium [Colace -] 100 mg PO TID #90 capsule 07/31/18 Folic Acid - 1 mg PO DAILY #30 tablet 07/31/18 Sennosides [Senna -] 2 tab PO HS #60 tablet 07/31/18 Ondansetron HCl [Zofran] 8 mg PO QID PRN 01/30/19 Prochlorperazine Maleate 10 mg PO TID PRN 01/30/19 [Compazine] Tramadol HCl 50 mg PO ASDIR PRN 01/30/19 REVIEW OF SYSTEMS CONSTITUTIONAL: Absent: fever, chills, diaphoresis, generalized weakness, malaise, loss of appetite, weight change HEENT: Absent: rhinorrhea, nasal congestion, throat pain, throat swelling, difficulty swallowing, mouth swelling, ear pain, eye pain, visual changes CARDIOVASCULAR: Absent: chest pain, syncope, palpitations, irregular heart rate, lightheadedness , peripheral edema RESPIRATORY: Absent: cough, shortness of breath, dyspnea with exertion, orthopnea, wheezing, stridor, hemoptysis GASTROINTESTINAL: Absent: abdominal distension, nausea, vomiting, diarrhea, constipation, melena , hematochezia present- abdominal pain, GENITOURINARY: Absent: dysuria, frequency, urgency, hesitancy, hematuria, flank pain, genital pain MUSCULOSKELETAL: Absent: arthralgia, joint swelling, back pain, neck pain present- myalgia, SKIN: Absent: rash, itching, pallor HEMATOLOGIC/IMMUNOLOGIC: Absent: easy bleeding, easy bruising, lymphadenopathy, frequent infections ENDOCRINE: Absent: unexplained weight gain, unexplained weight loss, heat intolerance, cold intolerance NEUROLOGIC: Absent: headache, focal weakness or paresthesias, dizziness, unsteady gait, seizure, mental status changes, bladder or bowel incontinence PSYCHIATRIC: Absent: anxiety, depression, suicidal or homicidal ideation, hallucinations. PHYSICAL EXAMINATION Vital Signs - 24 hr 01/30/19 01/30/19 01/30/19 12:43 14:08 14:20 Temperature 99.8 F H 99.3 F Pulse Rate 107 H Pulse Rate [ 87 Apical] Respiratory 18 Rate Blood Pressure 125/65 Blood Pressure 124/59 L [Left Arm] O2 Sat by Pulse 98 Oximetry (%) 01/30/19 19:25 Temperature 97.9 F Pulse Rate 96 H Pulse Rate [ 89 Apical] Respiratory 18 Rate Blood Pressure Blood Pressure 117/56 L [Left Arm] O2 Sat by Pulse 96 Oximetry (%) GENERAL: Awake, alert, and fully oriented, in no acute distress. HEAD: Normal with no signs of trauma. EYES: Pupils equal, round and reactive to light, extraocular movements intact, sclera anicteric, conjunctiva clear. No lid lag. EARS, NOSE, THROAT: Ears normal, nares patent, oropharynx clear without exudates. Moist mucous membranes. NECK: Normal range of motion, supple without lymphadenopathy, JVD, or masses. LUNGS: Breath sounds equal, clear to auscultation bilaterally. No wheezes, and no crackles. No accessory muscle use. HEART: Regular rate and rhythm, normal S1 and S2 without murmur, rub or gallop. ABDOMEN: left lower quadrant hard mass felt, BS, soft, nt MUSCULOSKELETAL: Normal range of motion at all joints. No bony deformities or tenderness. No CVA tenderness. UPPER EXTREMITIES: 2+ pulses, warm, well-perfused. No cyanosis. No clubbing. No peripheral edema. LOWER EXTREMITIES: 2+ pulses, warm, well-perfused. No calf tenderness. No peripheral edema. NEUROLOGICAL: Cranial nerves II-XII intact. Normal speech. PSYCHIATRIC: Cooperative. Good eye contact. Appropriate mood and affect. SKIN: Warm, dry, normal turgor, no rashes or lesions noted, normal capillary refill. Laboratory Results - last 24 hr 01/30/19 01/30/19 01/30/19 13:26 13:26 13:26 WBC 11.7 H RBC 3.60 Hgb 10.6 L Hct 32.1 L MCV 89.2 MCH 29.4 MCHC 33.0 RDW 17.7 H Plt Count 438 H MPV 6.3 L Absolute Neuts (auto) 10.1 H Neutrophils % 86.9 H Lymphocytes % 5.5 L D Monocytes % 6.4 Eosinophils % 0.6 Basophils % 0.6 Nucleated RBC % 0 PT with INR 13.90 H INR 1.18 H PTT (Actin FS) 32.8 VBG pH 7.46 H POC VBG pCO2 36.9 L POC VBG pO2 75.5 H VBG HCO3 25.6 VBG O2 Sat (Ariana) 95.9 H VBG Base Excess 2.2 H Sodium Potassium Chloride Carbon Dioxide Anion Gap BUN Creatinine Est GFR (CKD-EPI)AfAm Est GFR (CKD-EPI)NonAf Random Glucose Lactic Acid Calcium Total Bilirubin AST ALT Alkaline Phosphatase Troponin I Total Protein Albumin TSH Urine Color Urine Appearance Urine pH Ur Specific Bement Urine Protein Urine Glucose (UA) Urine Ketones Urine Blood Urine Nitrite Urine Bilirubin Urine Urobilinogen Ur Leukocyte Esterase Urine WBC (Auto) Urine RBC (Auto) Urine Casts (Auto) U Epithel Cells (Auto) U Sm Round Cell (Auto) Urine Bacteria (Auto) 01/30/19 01/30/19 01/30/19 13:26 13:26 13:26 WBC RBC Hgb Hct MCV MCH MCHC RDW Plt Count MPV Absolute Neuts (auto) Neutrophils % Lymphocytes % Monocytes % Eosinophils % Basophils % Nucleated RBC % PT with INR INR PTT (Actin FS) VBG pH POC VBG pCO2 POC VBG pO2 VBG HCO3 VBG O2 Sat (Ariana) VBG Base Excess Sodium 134 L Potassium 4.0 Chloride 100 Carbon Dioxide 26 Anion Gap 8 BUN 7.9 Creatinine 0.7 Est GFR (CKD-EPI)AfAm 97.54 Est GFR (CKD-EPI)NonAf 84.16 Random Glucose 151 H Lactic Acid 1.3 Calcium 8.8 Total Bilirubin 0.2 AST 21 ALT 13 Alkaline Phosphatase 101 Troponin I < 0.02 Total Protein 7.7 Albumin 2.9 L TSH 0.28 L Urine Color Urine Appearance Urine pH Ur Specific Bement Urine Protein Urine Glucose (UA) Urine Ketones Urine Blood Urine Nitrite Urine Bilirubin Urine Urobilinogen Ur Leukocyte Esterase Urine WBC (Auto) Urine RBC (Auto) Urine Casts (Auto) U Epithel Cells (Auto) U Sm Round Cell (Auto) Urine Bacteria (Auto) 01/30/19 01/30/19 13:27 18:00 WBC RBC Hgb Hct MCV MCH MCHC RDW Plt Count MPV Absolute Neuts (auto) Neutrophils % Lymphocytes % Monocytes % Eosinophils % Basophils % Nucleated RBC % PT with INR INR PTT (Actin FS) VBG pH POC VBG pCO2 POC VBG pO2 VBG HCO3 VBG O2 Sat (Ariana) VBG Base Excess Sodium Potassium Chloride Carbon Dioxide Anion Gap BUN Creatinine Est GFR (CKD-EPI)AfAm Est GFR (CKD-EPI)NonAf Random Glucose Lactic Acid 0.7 Calcium Total Bilirubin AST ALT Alkaline Phosphatase Troponin I Total Protein Albumin TSH Urine Color Yellow Urine Appearance Clear Urine pH 7.5 Ur Specific Bement 1.011 Urine Protein 2+ H Urine Glucose (UA) Negative Urine Ketones Negative Urine Blood Trace Urine Nitrite Negative Urine Bilirubin Negative Urine Urobilinogen 0.2 Ur Leukocyte Esterase 2+ H Urine WBC (Auto) 31 Urine RBC (Auto) 5 Urine Casts (Auto) 2 U Epithel Cells (Auto) 7.4 U Sm Round Cell (Auto) None seen Urine Bacteria (Auto) 15.[address], C spine reviewed ASSESSMENT/PLAN: #Mechanical fall/syncope - no head trauma, normal CT head and C-spine imaging reviewed. Suspected syncope in ER however after interviewing patient, sounds more like mechanical fall. -fall precautions -bed rest -monitor on cardiac -PT evaluation for gait assessment -f/u official head/ c spine CT reports #Lung cancer s/p last chemo on sun -adequate pain control -morphine 2mg IVP q4hrs prn for pain management -zofran IV prn if nausea/vomiting #Mild leukcytosis, only one time low grade fever in ER. Given cefepime empirically. Do not suspect infection at this time. -f/u blood, urine cultures -trend cbc -hold off antibiotics at this time #DVT ppx -heparin sc Visit type - Emergency Visit Emergency Visit: Yes ED Registration Date: 01/30/19 Care time: The patient presented to the Emergency Department on the above date and was hospitalized for further evaluation of their emergent condition. - New Patient This patient is new to me today: Yes Date on this admission: 01/30/19 - Critical Care Critical Care patient: No
[2019-01-30] MEDS ORDERED: ONDANSETRON 4 MG TABLET PO PRN (20:34)
[2019-01-30] MEDS ORDERED: traMADol HCL 50 MG TABLET PO PRN (20:34)
--- NOTE | 2019-01-30 21:41 | PN ---
Progress Note (short form) - Note Progress Note: PAtient seen and examined. Well known to our service. HAd RLQ pain AFVSS Cor: RSR, No murmurs, No gallops Lungs: Clear to P&A Abd: Soft, Normal bowel sounds, No organomegaly Ext:No significant edema LAbs/MEds reviewed A/P 79 y/o p atient with metastatic lung cancer, now wih increasing LLQ mass s/p recent sacral RT Admitted with syncopal episode Dehydration ? UTI f/u cultures empiric antibiotics CT head/Cspine negative will consult rad-onc ---palliative RT?
[2019-01-30] MEDS ORDERED: SENNOSIDES 8.6MG TABLET (FP) PO ONE (21:53)
[2019-01-30] MEDS ORDERED: DOCUSATE SODIUM 100 MG CAPSULE (FP) PO ONE (21:53)
[2019-01-30] MEDS: DOCUSATE SODIUM 100 MG CAPSULE (FP) PO SCH (22:11)
[2019-01-30] MEDS: SENNOSIDES 8.6MG TABLET (FP) PO SCH (22:11)
[2019-01-31] MEDS ORDERED: DOCUSATE SODIUM 100 MG CAPSULE (FP) PO ONE (06:19)
[2019-01-31] MEDS: DOCUSATE SODIUM 100 MG CAPSULE (FP) PO SCH ×3 (06:22→21:41)
[2019-01-31 09:03] LABS: HEMATOCRIT 30.7 % (32.4-45.2); HEMOGLOBIN 10.2 GM/dL (10.7-15.3); MCH 29.8 pg (25.7-33.7); MCHC 33.2 g/dl (32.0-36.0); MEAN CELL VOLUME 89.7 fl (80-96); MEAN PLT VOLUME 6.2 fl (7.5-11.1); PLATELET COUNT 411 K/MM3 (134-434); RBC 3.42 M/mm3 (3.60-5.2); RDW 17.4 % (11.6-15.6); WHITE BLOOD COUNT 9.2 K/mm3 (4.0-10.0)
[2019-01-31] MEDS: FOLIC ACID 1 MG TABLET (FP) PO SCH (09:06)
[2019-01-31 09:26] LABS: ANION GAP 6 MMOL/L (8-16); BLOOD UREA NITROGEN 4.1 mg/dL (7-18); CALCIUM 8.1 mg/dL (8.5-10.1); CHLORIDE 105 mmol/L (98-107); CO2 27 mmol/L (21-32); CREATININE 0.6 mg/dL (0.55-1.3); GLUCOSE,RANDOM 114 mg/dL (74-106); SODIUM 139 mmol/L (136-145)
--- NOTE | 2019-01-31 11:13 | ECHO ---
Name: SULAIMAN SCHMIDT Exam:Adult Echocardiogram Study Date: 01/31/2019 10:32 AM Age: 79 yrs Reason For Study: R/O Valve Disease Height: 60 in Weight: 118 lb BSA: 1.5 m2 MMode/2D Measurements & Calculations IVSd: 1.1 cm Ao root diam: 3.0 cm LVIDd: 3.8 cm LA dimension: 2.2 cm LVIDs: 2.4 cm LVPWd: 0.99 cm EDV(Teich): 60.8 ml LVOT diam: 2.0 cm ESV(Teich): 20.2 ml Doppler Measurements & Calculations MV E max shailesh: 57.2 cm/sec Ao V2 max: 108.6 cm/sec MV A max shailesh: 98.0 cm/sec Ao max P.7 mmHg MV E/A: 0.58 MV dec time: 0.17 sec ROGER(V,D): 2.7 cm2 LV V1 max P.6 mmHg PA V2 max: 108.6 cm/sec LV V1 max: 94.6 cm/sec PA max P.7 mmHg Med Peak E' Shailesh: 6.2 cm/sec PI Vmax: 108.6 cm/sec Med E/e': 9.2 Lat Peak E' Shailesh: 7.7 cm/sec Lat E/e': 7.4 Left Ventricle Ejection Fraction = 55-60%. Left ventricular systolic function is normal. The transmitral spectral Do ppler flow pattern is suggestive of impaired LV relaxation. Right Ventricle The right ventricle is normal in size and function. Atria Normal left and right atrial size and function. Mitral Valve The mitral valve is normal in structure and function. There is no mitral valve stenosis. There is no mitral regurgitation noted. Tricuspid Valve The tricuspid valve is normal in structure and function. There is mild tricuspid regurgitation. Right ventricular systolic pressure is normal. Aortic Valve The aortic valve opens well. No hemodynamically significant valvular aortic stenosis. Pulmonic Valve The pulmonic valve is not well seen, but is grossly normal. There is no pulmonic valvular stenosis. Great Vessels The aortic root is normal size. Pericardium/Pleura There is no pericardial effusion. Interpretation Summary Ejection Fraction = 55-60%. Left ventricular systolic function is normal. The transmitral spectral Doppler flow pattern is suggestive of impaired LV relaxation. The right ventricle is normal in size and function. There is mild tricuspid regurgitation. Right ventricular systolic pressure is normal. The aortic root is normal size. There is no pericardial effusion. MD Eckert *Keke 01/31/2019 11:12 AM
--- NOTE | 2019-01-31 12:12 | PN ---
Progress Note, Physician Chief Complaint: Fall Metastatic lung ca History of Present Illness: mild distress due to LLQ pain - Current Medication List Current Medications: Active Medications Docusate Sodium (Colace -) 100 mg PO TID [facility] Last Admin: 01/31/19 06:22 Dose: 100 mg Folic Acid (Folic Acid -) 1 mg PO DAILY [facility] Last Admin: 01/31/19 09:06 Dose: 1 mg Potassium Chloride/Sodium Chloride (Ns+20 Meq Kcl -) 20 meq in 1,000 mls @ 75 mls/hr IV ASDIR LYNN Potassium Chloride (Potassium Chloride 10 Meq Premix Ivpb -) 10 meq in 100 mls @ 100 mls/hr IVPB Q60M [facility] Stop: 01/31/19 15:14 Insulin Aspart (Novolog Vial Sliding Scale -) 1 vial SQ TIDAC [facility]; Protocol Morphine Sulfate (Morphine Sulfate) 2 mg IVPUSH Q4H PRN PRN Reason: PAIN LEVEL 6-10 Ondansetron HCl (Zofran -) 8 mg PO Q6H PRN PRN Reason: NAUSEA Rosuvastatin Calcium (Crestor -) 10 mg PO HS [facility] Senna (Senna -) 2 tab PO HS [facility] Last Admin: 01/30/19 22:11 Dose: 2 tab - Objective Vital Signs: Vital Signs Temperature 98 F 01/31/19 06:23 Pulse Rate 87 01/31/19 09:26 Respiratory Rate 18 01/31/19 06:23 Blood Pressure 130/66 01/31/19 09:26 O2 Sat by Pulse Oximetry (%) 100 01/31/19 06:23 Constitutional: Yes: Well Nourished, Calm, Mild Distress (LLQ pain) Cardiovascular: Yes: Regular Rate and Rhythm Respiratory: Yes: Regular Gastrointestinal: Yes: Normal Bowel Sounds, Soft, Tenderness (LLQ) Genitourinary: Yes: WNL Musculoskeletal: Yes: Muscle Weakness Extremities: Yes: WNL Edema: No Peripheral Pulses WNL: Yes Neurological: Yes: Alert, Oriented Psychiatric: Yes: Alert, Oriented Labs: CBC, BMP 01/31/19 08:40 01/31/19 08:40 INR, PTT INR 1.18 (0.83-1.09) H 01/30/19 13:26 Problem List - Problems (1) Hypokalemia Assessment/Plan: -Change IVF to N/S+ KCL 20 meq -Also, KCl 10 meq x 3 -monitor BMP Code(s): E87.6 - HYPOKALEMIA (2) Diabetes Assessment/Plan: -BGM AC HS -ISS -Diabetic/sodium diet -Last a1c 7.8 on 07/2018 -recheck A1c Code(s): E11.9 - TYPE 2 DIABETES MELLITUS WITHOUT COMPLICATIONS Qualifiers: Diabetes mellitus type: type 2 (3) Metastatic lung cancer (metastasis from lung to other site) Assessment/Plan: -Seen by Oncology -Awaiting radiation oncology consult -pain control with morphine -Palliative consult Code(s): C34.90 - MALIGNANT NEOPLASM OF UNSP PART OF UNSP BRONCHUS OR LUNG Qualifiers: Laterality: left Qualified Code(s): C34.92 - Malignant neoplasm of unspecified part of left bronchus or lung (4) Anemia Assessment/Plan: -chronic -hematology on board -Check iron, thyroid, B12, FA and stool OB Code(s): D64.9 - ANEMIA, UNSPECIFIED (5) Frequent falls Assessment/Plan: -Physiatry consult -Neurology consult Code(s): R29.6 - REPEATED FALLS (6) UTI (urinary tract infection) Assessment/Plan: -Hx of ESBL -Ertapenem 1 dose given in ER -UA/UC pending -ID consult Code(s): N39.0 - URINARY TRACT INFECTION, SITE NOT SPECIFIED Qualifiers: Urinary tract infection type: acute cystitis Hematuria presence: without hematuria Qualified Code(s): N30.00 - Acute cystitis without hematuria Assessment/Plan See problem list
[2019-01-31] MEDS: SODIUM CHLORIDE 0.9%/KCL 20 MEQ/1,000 ML INFUS.BAG IV SCH (13:19)
--- NOTE | 2019-01-31 13:27 | EKG ---
Test Reason : Blood Pressure : / mmHG Vent. Rate : 102 BPM Atrial Rate : 102 BPM P-R Int : 130 ms QRS Dur : 072 ms QT Int : 334 ms P-R-T Axes : 046 029 047 degrees QTc Int : 435 ms SINUS TACHYCARDIA POOR R WAVE PROGRESSION Confirmed by SANDRO CLIFFORD MD ([id number]) on 01/31/2019 1:27:07 PM Referred By: Confirmed By:SANDRO CLIFFORD MD
[2019-01-31] MEDS ORDERED: KCL 10 MEQ IVPB 10 MEQ/100 ML INFUS.BAG IVPB ONE (13:34)
[2019-01-31] MEDS: KCL 10 MEQ IVPB 10 MEQ/100 ML INFUS.BAG IVPB SCH ×3 (13:37→15:30)
--- NOTE | 2019-01-31 17:12 | CONS ---
DATE OF CONSULTATION: 01/31/2019 HISTORY OF PRESENT ILLNESS: The patient is a 78-year-old female with a history of metastatic adenocarcinoma of the lung evaluated for UTI, possible urosepsis. She was admitted to the hospital on January 30, 2019, after having two syncopal episodes, one at home and one in the oncologists office. She also complains of subjective fever and nausea and vomiting. She was evaluated in the emergency room where she had a low-grade fever and tachycardia, and she was empirically treated with cefepime. 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 She has a history of ESBL urinary tract infection in the past. Patient does complain of dysuria and suprapubic pressure. She has had a low-grade fever. White blood cell count is now normal. PAST MEDICAL HISTORY: Positive for metastatic adenocarcinoma of the lung with a left lower quadrant abdominal soft tissue mass, SIADH, diabetes mellitus, hyperlipidemia, history of bony metastases, status post radiation therapy. ALLERGIES: No known allergies. MEDICATIONS: Include immunotherapy last received January 22, 2019. LABORATORY DATA: White count 9.2, hematocrit 30.7, platelets 411. Creatinine 0.6. Liver enzymes normal. Blood cultures pending. Chest x-ray negative for acute infiltrate. PHYSICAL EXAMINATION: General: She is awake and alert. She is not acutely toxic-appearing. Vital signs: Temperature 99.1, blood pressure 130/69, pulse 108 and regular, respirations 18 per minute. HEENT: Sclerae anicteric. Heart: Heart sounds S1, S2. Lungs: Clear. Abdomen: Obese, soft. There is a hard mass present, left lower quadrant. Extremities: Negative for edema. No suprapubic or flank tenderness. IMPRESSION: 1. Urinary tract infection. 2. Rule out sepsis secondary to urinary tract infection. 3. History of extended-spectrum beta-lactamase urinary tract infection. 4. Metastatic carcinoma. 5. Syncope. 6. Diabetes mellitus. Pending sepsis workup, empiric antibiotic coverage with ertapenem, further recommendations pending cultures. Will follow. Thank you for the kind referral. SANDRO DE JESUS M.D. [id number]
[2019-01-31] MEDS: INSULIN SLIDING SCALE (NOVOLOG) 1 VIAL SQ SCH (17:29)
--- NOTE | 2019-01-31 18:51 | PN ---
Progress Note (short form) - Note Progress Note: Radiation Oncology Pt examined, chart reviewed. Known to our dept with stage IV NSCLC progression on Keytruda, completed palliative RT to destructive sacral met on 01/21/19 with subsequent pain relief. Admitted after fall and undergoing workup and treatment for urosepsis. She complains of chronic pain in the LLQ where she has a known subcutaneous abdominal wall mass. Has been having nausea likely related to current infectious episode. Moving bowels but had prior episode of constipation responsive to enema/laxatives. No urinary changes. Recommend continuing current medical mgt and optimize pain with analgesics. When medically stable, consider RT to abdomen.
[2019-01-31] MEDS: MORPHINE SULFATE 2 MG/ML VIAL IVPUSH PRN (19:28)
--- NOTE | 2019-01-31 21:07 | PN ---
Progress Note (short form) - Note Progress Note: PAtient seen and examined. Well known to our service. HAs LLQ abdominal wall pain low grade emps VSS Cor: RSR, No murmurs, No gallops Lungs: Clear to P&A Abd: Soft, Normal bowel sounds, No organomegaly Ext:No significant edema A/P 79 y/o p atient with metastatic lung cancer, now wih increasing LLQ abdominal wall mass s/p recent sacral RT Admitted with syncopal episode Dehydration ? UTI f/u cultures empiric antibiotics--ertapenem for ESBL CT head/Cspine negative palliative RT as outpatient
[2019-01-31] MEDS: SENNOSIDES 8.6MG TABLET (FP) PO SCH (21:41)
[2019-01-31] MEDS: ROSUVASTATIN CA 10 MG TABLET (FP) PO SCH (21:41)
[2019-01-31] MEDS: ERTAPENEM SODIUM 1 GM in SODIUM CHLORIDE 50 ML IVPB SCH (21:41)
[2019-02-01] MEDS: INSULIN SLIDING SCALE (NOVOLOG) 1 VIAL SQ SCH ×3 (06:31→17:31)
[2019-02-01] MEDS: DOCUSATE SODIUM 100 MG CAPSULE (FP) PO SCH ×3 (06:55→22:11)
[2019-02-01] MEDS ORDERED: PT OWN MED DRAWER 7, Y5N ONE ×2 (09:41→19:40)
[2019-02-01] MEDS: FOLIC ACID 1 MG TABLET (FP) PO SCH (10:09)
--- NOTE | 2019-02-01 11:50 | CON.NEURO ---
Consult - History of Present Illness History of Present Illness: Neurology coverage for DR GUZMAN 78yo woman with lung cancer on Keytruda c/o fall on 01/31/19 before she was about to take shower and lost her balance and fell. Admits dizziness x 3 weeks, positional; no RIOS , no focal weakness, though generalized fatigue. Denied any trauma to head or LOC. She denied any pain right now except for abdominal pain which she had earlier from lung ca mets. Pt sent down to ED for evaluation by Dr. Kerr who suspected possible syncope. Last chemo was on sun. Low TSH , B12 +3799, UA 2+ LE CT H and C spine : Impression: No evidence of a focal intracranial lesion or hemorrhage seen. CT scan of the cervical spine without intravenous contrast Coronal and sagittal reconstruction images were obtained. No gross fracture, subluxation or prevertebral soft tissue swelling is seen. No jumped facets are identified. Visualized portion of the airway appears unremarkable. No gross enlarged lymph nodes are identified. Lung windows at the thoracic inlet appear unremarkable. Small calcified plaque at the left common carotid bifurcation. IMPRESSION: Straightening of the cervical spine. The alignment is satisfactory. No gross fracture or subluxation is seen. No jumped facets are identified. - Past Medical History Cardio/Vascular: Yes: Hyperlipdemia Endocrine: Yes: Diabetes Mellitus - Alcohol/Substance Use Hx Alcohol Use: No - Smoking History Smoking history: Never smoked Have you smoked in the past 12 months: No If you are a former smoker, when did you quit?: 3 yrs ago Home Medications - Allergies Allergies/Adverse Reactions: Allergies Allergy/AdvReac Type Severity Reaction Status Date / Time No Known Allergies Allergy Verified 12/29/18 13:43 - Home Medications Home Medications: Ambulatory Orders Rosuvastatin [Crestor -] 10 mg PO DAILY 07/25/18 metFORMIN HCL [Metformin ER Osmotic] 500 mg PO BIDAC 07/25/18 Docusate Sodium [Colace -] 100 mg PO TID #90 capsule 07/31/18 Folic Acid - 1 mg PO DAILY #30 tablet 07/31/18 Sennosides [Senna -] 2 tab PO HS #60 tablet 07/31/18 Ondansetron HCl [Zofran] 8 mg PO QID PRN 01/30/19 Prochlorperazine Maleate [Compazine] 10 mg PO TID PRN 01/30/19 Tramadol HCl 50 mg PO ASDIR PRN 01/30/19 Physical Exam-Neuro Vital Signs: Vital Signs Temperature 98.9 F 02/01/19 06:00 Pulse Rate 91 H 02/01/19 06:00 Respiratory Rate 20 02/01/19 06:00 Blood Pressure 114/47 L 02/01/19 06:00 O2 Sat by Pulse Oximetry (%) 100 01/31/19 06:23 Constitutional: Yes: Well Nourished Labs: CBC, BMP 01/31/19 08:40 01/31/19 08:40 INR, PTT INR 1.18 (0.83-1.09) H 01/30/19 13:26 - Neuro Exam Level Of Consciousness: Yes: Alert (AWake, alert,no nystagmus, EOMI, no facial weakness, no ataxia, no drift , postional vertigo ) Imaging - Results Cat Scan: Report Reviewed, Image Reviewed Problem List - Problems (1) Lung cancer Code(s): C34.90 - MALIGNANT NEOPLASM OF UNSP PART OF UNSP BRONCHUS OR LUNG (2) Syncope Code(s): R55 - SYNCOPE AND COLLAPSE Qualifiers: Syncope type: unspecified Qualified Code(s): R55 - Syncope and collapse Assessment/Plan 78yo woman with lung cancer on Keytruda c/o fall on 01/31/19 before she was about to take shower and lost her balance and fell. Admits dizziness x 3 weeks, positional; no RIOS , no focal weakness, though generalized fatigue. Denied any trauma to head or LOC. She denied any pain right now except for abdominal pain which she had earlier from lung ca mets. Pt sent down to ED for evaluation by Dr. Kerr who suspected possible syncope. Last chemo was on sun. Low TSH , B12 +3799, UA 2+ LE CT H and C spine : Impression: No evidence of a focal intracranial lesion or hemorrhage seen. CT scan of the cervical spine without intravenous contrast Coronal and sagittal reconstruction images were obtained. No gross fracture, subluxation or prevertebral soft tissue swelling is seen. No jumped facets are identified. Visualized portion of the airway appears unremarkable. No gross enlarged lymph nodes are identified. Lung windows at the thoracic inlet appear unremarkable. Small calcified plaque at the left common carotid bifurcation. IMPRESSION: Straightening of the cervical spine. The alignment is satisfactory. No gross fracture or subluxation is seen. No jumped facets are identified. AP : HX of lung CA with mets on chemo, admitted for syncope and vertigo-no central features on exam ; being treated for + UTI , low BP factors. --medical TYSON in progress, given vertigo x 3 weeks-would get MRI BRAIN with Maximus to ensure no subclinical brain pathology. DR NIEVES
--- NOTE | 2019-02-01 12:00 | PN ---
Progress Note, Physician Chief Complaint: Syncope Metastatic Lung CA Hypokalemia History of Present Illness: Previous notes and events reviewed awake and alert NAD complain of dizzines sts having LLQ pain UC positive - Current Medication List Current Medications: Active Medications Acetaminophen (Tylenol -) 650 mg PO Q4H PRN PRN Reason: PAIN OR FEVER Docusate Sodium (Colace -) 100 mg PO TID [facility] Last Admin: 02/01/19 06:55 Dose: 100 mg Folic Acid (Folic Acid -) 1 mg PO DAILY [facility] Last Admin: 02/01/19 10:09 Dose: 1 mg Potassium Chloride/Sodium Chloride (Ns+20 Meq Kcl -) 20 meq in 1,000 mls @ 75 mls/hr IV ASDIR [facility] Last Admin: 01/31/19 13:19 Dose: 75 mls/hr Ertapenem 1 gm/ Sodium (Chloride) 50 mls @ 100 mls/hr IVPB Q24H [facility] Last Admin: 01/31/19 21:41 Dose: 100 mls/hr Potassium Chloride (Potassium Chloride 10 Meq Premix Ivpb -) 10 meq in 100 mls @ 100 mls/hr IVPB Q60M [facility] Stop: 02/01/19 13:59 Insulin Aspart (Novolog Vial Sliding Scale -) 1 vial SQ TIDAC [facility]; Protocol Last Admin: 02/01/19 06:31 Dose: Not Given Morphine Sulfate (Morphine Sulfate) 2 mg IVPUSH Q4H PRN PRN Reason: PAIN LEVEL 6-10 Last Admin: 01/31/19 19:28 Dose: 2 mg Ondansetron HCl (Zofran -) 8 mg PO Q6H PRN PRN Reason: NAUSEA Rosuvastatin Calcium (Crestor -) 10 mg PO HS [facility] Last Admin: 01/31/19 21:41 Dose: 10 mg Senna (Senna -) 2 tab PO [facility] Last Admin: 01/31/19 21:41 Dose: 2 tab - Objective Vital Signs: Vital Signs Temperature 98.9 F 02/01/19 06:00 Pulse Rate 91 H 02/01/19 06:00 Respiratory Rate 20 02/01/19 06:00 Blood Pressure 114/47 L 02/01/19 06:00 O2 Sat by Pulse Oximetry (%) 100 01/31/19 06:23 Constitutional: Yes: No Distress, Calm Eyes: Yes: Conjunctiva Clear HENT: Yes: Atraumatic Cardiovascular: Yes: Regular Rate and Rhythm Respiratory: Yes: Regular, Diminished Gastrointestinal: Yes: Normal Bowel Sounds, Soft, Tenderness (LLQ) Musculoskeletal: Yes: Muscle Weakness Extremities: Yes: WNL Edema: No Neurological: Yes: Alert, Oriented Psychiatric: Yes: Alert, Oriented Labs: CBC, BMP 01/31/19 08:40 01/31/19 08:40 INR, PTT INR 1.18 (0.83-1.09) H 01/30/19 13:26 Problem List - Problems (1) Anemia Assessment/Plan: -last Hg 10.2 -hematology on board -Iron panel pending Code(s): D64.9 - ANEMIA, UNSPECIFIED (2) Frequent falls Assessment/Plan: -PT -Neurology on board -Brain MRI pending -Head CT and Cervical Spine CT scan reviewed Code(s): R29.6 - REPEATED FALLS (3) Hypokalemia Assessment/Plan: -NS + KCl 20mEq -monitor electrolytes daily Code(s): E87.6 - HYPOKALEMIA (4) Diabetes Assessment/Plan: -BGM ACHS -ISS -diabetic diet Code(s): E11.9 - TYPE 2 DIABETES MELLITUS WITHOUT COMPLICATIONS (5) HLD (hyperlipidemia) Assessment/Plan: -Crestor Code(s): E78.5 - HYPERLIPIDEMIA, UNSPECIFIED (6) Metastatic lung cancer (metastasis from lung to other site) Assessment/Plan: -Oncology on board -Radiation Oncology recommendation--when medically stable consider RT to abdomen -palliative consult -pain control Code(s): C34.90 - MALIGNANT NEOPLASM OF UNSP PART OF UNSP BRONCHUS OR LUNG Qualifiers: Laterality: left Qualified Code(s): C34.92 - Malignant neoplasm of unspecified part of left bronchus or lung (7) UTI (urinary tract infection) Assessment/Plan: -ID on board -Ertapenem -no leukocytosis -afebrile -UC positive for Ecoli Code(s): N39.0 - URINARY TRACT INFECTION, SITE NOT SPECIFIED Qualifiers: Urinary tract infection type: acute cystitis Hematuria presence: without hematuria Qualified Code(s): N30.00 - Acute cystitis without hematuria Assessment/Plan see problem list SCDs
[2019-02-01] MEDS: KCL 10 MEQ IVPB 10 MEQ/100 ML INFUS.BAG IVPB SCH ×3 (12:08→14:13)
[2019-02-01] MEDS: SODIUM CHLORIDE 0.9%/KCL 20 MEQ/1,000 ML INFUS.BAG IV SCH (12:57)
[2019-02-01] MEDS: ERTAPENEM SODIUM 1 GM in SODIUM CHLORIDE 50 ML IVPB SCH (19:42)
[2019-02-01] MEDS: MORPHINE SULFATE 2 MG/ML VIAL IVPUSH PRN (19:42)
[2019-02-01 20:32] LABS: ALBUMIN 2.6 g/dl (3.4-5.0); BILIRUBIN,TOTAL 0.2 mg/dL (0.2-1); BLOOD UREA NITROGEN 3.6 mg/dL (7-18); CALCIUM 7.8 mg/dL (8.5-10.1); CREATININE 0.6 mg/dL (0.55-1.3); POTASSIUM 3.8 mmol/L (3.5-5.1); TOT PROT 6.7 g/dl (6.4-8.2)
[2019-02-01] MEDS: ROSUVASTATIN CA 10 MG TABLET (FP) PO SCH (22:11)
[2019-02-01] MEDS: SENNOSIDES 8.6MG TABLET (FP) PO SCH (22:11)
[2019-02-02] MEDS: DOCUSATE SODIUM 100 MG CAPSULE (FP) PO SCH ×3 (06:32→22:33)
[2019-02-02] MEDS: INSULIN SLIDING SCALE (NOVOLOG) 1 VIAL SQ SCH ×3 (06:33→16:51)
[2019-02-02 06:53] LABS: HEMATOCRIT 30.8 % (32.4-45.2); HEMOGLOBIN 10.4 GM/dL (10.7-15.3); MCH 30.6 pg (25.7-33.7); MCHC 33.7 g/dl (32.0-36.0); MEAN CELL VOLUME 90.6 fl (80-96); MEAN PLT VOLUME 6.2 fl (7.5-11.1); PLATELET COUNT 450 K/MM3 (134-434); RDW 17.9 % (11.6-15.6); WHITE BLOOD COUNT 9.6 K/mm3 (4.0-10.0)
[2019-02-02 08:07] LABS: SERUM IRON SATURATION 10 % (15-55); TOTAL IRON BINDING CAPACITY 234 ug/dL (250-450)
--- NOTE | 2019-02-02 09:22 | PN ---
Progress Note, Physician Chief Complaint: Syncope Metastatic Lung CA Hypokalemia History of Present Illness: Previous notes and events reviewed awake and alert NAD complain of dizzines sts having LLQ pain denies chest pain or SOB - Current Medication List Current Medications: Active Medications Acetaminophen (Tylenol -) 650 mg PO Q4H PRN PRN Reason: PAIN OR FEVER Docusate Sodium (Colace -) 100 mg PO TID [facility] Last Admin: 02/02/19 06:32 Dose: 100 mg Folic Acid (Folic Acid -) 1 mg PO DAILY [facility] Last Admin: 02/01/19 10:09 Dose: 1 mg Potassium Chloride/Sodium Chloride (Ns+20 Meq Kcl -) 20 meq in 1,000 mls @ 75 mls/hr IV ASDIR [facility] Last Admin: 02/01/19 12:57 Dose: 75 mls/hr Ertapenem 1 gm/ Sodium (Chloride) 50 mls @ 100 mls/hr IVPB Q24H [facility] Last Admin: 02/01/19 19:42 Dose: 100 mls/hr Insulin Aspart (Novolog Vial Sliding Scale -) 1 vial SQ TIDAC [facility]; Protocol Last Admin: 02/02/19 06:33 Dose: Not Given Morphine Sulfate (Morphine Sulfate) 2 mg IVPUSH Q4H PRN PRN Reason: PAIN LEVEL 6-10 Last Admin: 02/01/19 19:42 Dose: 2 mg Ondansetron HCl (Zofran -) 8 mg PO Q6H PRN PRN Reason: NAUSEA Rosuvastatin Calcium (Crestor -) 10 mg PO [facility] Last Admin: 02/01/19 22:11 Dose: 10 mg Senna (Senna -) 2 tab PO [facility] Last Admin: 02/01/19 22:11 Dose: 2 tab - Objective Vital Signs: Vital Signs Temperature 99.2 F 02/01/19 22:00 Pulse Rate 77 02/02/19 04:52 Respiratory Rate 20 02/02/19 04:52 Blood Pressure 120/51 L 02/02/19 04:52 O2 Sat by Pulse Oximetry (%) 98 02/01/19 22:00 Constitutional: Yes: No Distress, Calm Eyes: Yes: Conjunctiva Clear HENT: Yes: Atraumatic Cardiovascular: Yes: Regular Rate and Rhythm Respiratory: Yes: Regular, CTA Bilaterally Gastrointestinal: Yes: Normal Bowel Sounds, Soft, Tenderness (llq) Genitourinary: Yes: Incontinence Musculoskeletal: Yes: Muscle Weakness Extremities: Yes: WNL Edema: No Neurological: Yes: Alert, Pre-Existing Deficit Psychiatric: Yes: Alert Labs: CBC, BMP 02/02/19 05:20 02/01/19 19:50 INR, PTT INR 1.18 (0.83-1.09) H 01/30/19 13:26 Problem List - Problems (1) Anemia Assessment/Plan: -last Hg 10.4 -hematology on board -Iron panel: Fe, TIBC, Fe sat low shows anemia of chronic disease Code(s): D64.9 - ANEMIA, UNSPECIFIED (2) Frequent falls Assessment/Plan: -PT -Neurology on board -Brain MRI shows no evidence of metastatic disease, acute infarct, intracerebral hemorrhage -Head CT and Cervical Spine CT scan reviewed Code(s): R29.6 - REPEATED FALLS (3) Hypokalemia Assessment/Plan: -NS + KCl 20mEq discontinued -monitor electrolytes daily -K 3.8 Code(s): E87.6 - HYPOKALEMIA (4) Diabetes Assessment/Plan: -BGM ACHS -ISS -diabetic diet Code(s): E11.9 - TYPE 2 DIABETES MELLITUS WITHOUT COMPLICATIONS (5) HLD (hyperlipidemia) Assessment/Plan: -Crestor Code(s): E78.5 - HYPERLIPIDEMIA, UNSPECIFIED (6) Metastatic lung cancer (metastasis from lung to other site) Assessment/Plan: -Oncology on board -Radiation Oncology recommendation--when medically stable consider RT to abdomen -palliative consult -pain control Code(s): C34.90 - MALIGNANT NEOPLASM OF UNSP PART OF UNSP BRONCHUS OR LUNG Qualifiers: Laterality: left Qualified Code(s): C34.92 - Malignant neoplasm of unspecified part of left bronchus or lung (7) UTI (urinary tract infection) Assessment/Plan: -ID on board -Ertapenem -no leukocytosis -afebrile -UC positive for Ecoli Code(s): N39.0 - URINARY TRACT INFECTION, SITE NOT SPECIFIED Qualifiers: Urinary tract infection type: acute cystitis Hematuria presence: without hematuria Qualified Code(s): N30.00 - Acute cystitis without hematuria Assessment/Plan see problem list SCDs
[2019-02-02] MEDS: FOLIC ACID 1 MG TABLET (FP) PO SCH (10:10)
[2019-02-02] MEDS: MORPHINE SULFATE 2 MG/ML VIAL IVPUSH PRN (12:14)
[2019-02-02] MEDS: ROSUVASTATIN CA 10 MG TABLET (FP) PO SCH (22:33)
[2019-02-02] MEDS: ERTAPENEM SODIUM 1 GM in SODIUM CHLORIDE 50 ML IVPB SCH (22:33)
[2019-02-02] MEDS: SENNOSIDES 8.6MG TABLET (FP) PO SCH (22:33)
[2019-02-03] MEDS: DOCUSATE SODIUM 100 MG CAPSULE (FP) PO SCH ×3 (06:58→22:04)
[2019-02-03] MEDS: INSULIN SLIDING SCALE (NOVOLOG) 1 VIAL SQ SCH ×2 (06:59→12:51)
[2019-02-03] MEDS: FOLIC ACID 1 MG TABLET (FP) PO SCH (09:20)
--- NOTE | 2019-02-03 11:20 | PN ---
Progress Note (short form) - Note Progress Note: NEUROLOGY PROGRESS: Events reviewed and discussed with staff. Coverage note from Dr. Quintero read and appreciated. Daughter at bedside aiding in translation. This 79 yo RH woman lives with her daughter. PMHX: lung adenocarcinoma with mets , DM, HLD On: Keytruda (last chemo 01/29), rosuvastatin, metformin, zofran, compazine, tramadol. Admitted after two episodes of pre-syncope. She reports feeling "dizziness" upon standing, having to sit down to resolve symptoms. She denies LOC/falls. Also persistent nausea and vomiting with limited PO intake. C/O left leg "going asleep" while lying in bed attributed to left pelvic mass. Brain MRI (C+/C-) reviewed: Mod periventricular chronic ischemic changes. No enhancement with contrast. WBC 11.7-> 9.6 A1c 6.9 Iron 24; TIBC 234; Iron sat 10%; Ferritin 202.6 TSH 0.26 ; FT4 1.40; UC + ESBL- now on Erepenam ALONA: T 99. BP supine 102/45 sitting 114/76. Cor reg. R bruit. Neck supple. Neg SLR. Neg Ronda's. L pelvic mass. NEURO: Awake, alert, responsive. OX [place]. January 2019. TRUMP CNII-CNXII: EOM's full without nystagmus. Full cook. No facial. Gag ok. Motor: No drift or tremor. Strength normal. Reflexes normal including AJ's. Plantars silent. Coordination: No FTN dystaxia. Sensation: Normal to vibration. Gait: Pt defers at this time. Impression: Pre-syncope Worsened by Toxic-Metabolic Encephalopathy (UTI), dehydration/ hypovolemia (poor po intake) R carotid bruit Paresthesia left leg (Lumbosacral plexopathy?) Suggest: Continue antibiotics and suggest IV hydration Orthostatic BP's Continue cardiology with telemetry, holter, ECHO. Carotid duplex PT for mobilization, gait safety. Follow patient carefully for LE paresthesia tereso. re: R/O myelopathy (epidural met with cord compression)- Although Cervical CT is normal LE monoplegia could be on a thoracic spinal basis. Suggest FeSO4 325 mg po qd for iron deficiency anemia Thank you very much, Yusef Su MD
--- NOTE | 2019-02-03 11:52 | PN ---
Progress Note, Physician Chief Complaint: Fall Metastatic lung ca History of Present Illness: NAD, sitting at the edge of the bed c/o of mild LLQ pain, but improving bowel regimen improved On Ertapenem for ESBL UTI - Current Medication List Current Medications: Active Medications Acetaminophen (Tylenol -) 650 mg PO Q4H PRN PRN Reason: PAIN OR FEVER Docusate Sodium (Colace -) 100 mg PO TID [facility] Last Admin: 02/03/19 06:58 Dose: 100 mg Folic Acid (Folic Acid -) 1 mg PO DAILY [facility] Last Admin: 02/03/19 09:20 Dose: 1 mg Ertapenem 1 gm/ Sodium (Chloride) 50 mls @ 100 mls/hr IVPB Q24H [facility] Last Admin: 02/02/19 22:33 Dose: 100 mls/hr Insulin Aspart (Novolog Vial Sliding Scale -) 1 vial SQ TIDAC [facility]; Protocol Last Admin: 02/03/19 06:59 Dose: Not Given Ondansetron HCl (Zofran -) 8 mg PO Q6H PRN PRN Reason: NAUSEA Rosuvastatin Calcium (Crestor -) 10 mg PO HS [facility] Last Admin: 02/02/19 22:33 Dose: 10 mg Senna (Senna -) 2 tab PO [facility] Last Admin: 02/02/19 22:33 Dose: 2 tab - Objective Vital Signs: Vital Signs Temperature 99.0 F 02/03/19 09:20 Pulse Rate 94 H 02/03/19 09:20 Respiratory Rate 18 02/03/19 09:20 Blood Pressure 114/76 02/03/19 09:20 O2 Sat by Pulse Oximetry (%) 98 02/02/19 21:12 Constitutional: Yes: Well Nourished, No Distress, Calm Cardiovascular: Yes: Regular Rate and Rhythm Respiratory: Yes: Regular Gastrointestinal: Yes: Normal Bowel Sounds, Soft, Tenderness (LLQ) Genitourinary: Yes: WNL Musculoskeletal: Yes: WNL Extremities: Yes: WNL Edema: No Peripheral Pulses WNL: Yes Neurological: Yes: Alert, Oriented Psychiatric: Yes: Alert, Oriented Labs: CBC, BMP 02/02/19 05:20 02/01/19 19:50 INR, PTT INR 1.18 (0.83-1.09) H 01/30/19 13:26 Problem List - Problems (1) Hypokalemia Assessment/Plan: -resolved Code(s): E87.6 - HYPOKALEMIA (2) Diabetes Assessment/Plan: -Diabetic/sodium diet -A1c at 6.9 -D/C BGM and ISS, since appetite has improved Code(s): E11.9 - TYPE 2 DIABETES MELLITUS WITHOUT COMPLICATIONS Qualifiers: Diabetes mellitus type: type 2 (3) Metastatic lung cancer (metastasis from lung to other site) Assessment/Plan: -Seen by Oncology -radiation oncology consult appreciated -pain control with morphine -Palliative consult Code(s): C34.90 - MALIGNANT NEOPLASM OF UNSP PART OF UNSP BRONCHUS OR LUNG Qualifiers: Laterality: left Qualified Code(s): C34.92 - Malignant neoplasm of unspecified part of left bronchus or lung (4) Anemia Assessment/Plan: -chronic -hematology on board - iron % low -start Ferrous sulfate po daily -Stool OB pending -thyroid, B12, FA-unremarkable Code(s): D64.9 - ANEMIA, UNSPECIFIED (5) Frequent falls Assessment/Plan: -Physiatry consult -Neurology consult Code(s): R29.6 - REPEATED FALLS (6) UTI (urinary tract infection) Assessment/Plan: -Hx of ESBL -Ertapenem -UA/UC : Microbiology 01/30/19 13:26 Blood - Peripheral Venous Blood Culture - Preliminary NO GROWTH OBTAINED AFTER 96 HOURS, INCUBATION TO CONTINUE FOR 1 DAYS. 01/30/19 13:26 Blood - Peripheral Venous Blood Culture - Preliminary NO GROWTH OBTAINED AFTER 96 HOURS, INCUBATION TO CONTINUE FOR 1 DAYS. 01/30/19 13:27 Urine - Urine Clean Catch Urine Culture - Final Escherichia Coli Esbl Dispatcher Service Strep Agalactiae Group B -ID consult Code(s): N39.0 - URINARY TRACT INFECTION, SITE NOT SPECIFIED Qualifiers: Urinary tract infection type: acute cystitis Hematuria presence: without hematuria Qualified Code(s): N30.00 - Acute cystitis without hematuria Assessment/Plan See problem list
--- NOTE | 2019-02-03 12:22 | CONS ---
PHYSICAL MEDICINE REHABILITATION CONSULTATION DATE OF CONSULTATION: 02/03/2019 HISTORY OF PRESENT ILLNESS: The patient is a 79-year-old woman with past medical history of lung cancer who was admitted after she lost her balance and suffered a fall. Patient on admission underwent a CT of the head, which showed no acute intracranial pathology or lesion. There was a CT of the cervical spine that showed some straightening of the cervical spine but no fracture, subluxation, and no lymph node abnormalities. Patient underwent blood work on admission. CBC showed elevated WBCs 11.7, hemoglobin 10.6, platelet count 438. Repeat done yesterday showed a normalization of WBCs to 9.6, hemoglobin stable 10.4, platelet count 450. Chemistry on admission showed a BUN of 7.9, creatinine 0.7, low albumin 2.9, TSH was low at 0.28. She did have a normal free T4 at 1.40. Both her B12 and folate were elevated. Repeat albumin on February 01 was low at 2.6, and chemistry was stable, although her BUN is low at 3.6. Patient also underwent neurologic evaluation including an MRI of the brain, which again showed no acute intracranial pathology. Patient was seen by physical therapy and able to ambulate 50 feet with a rolling walker. She does complain of some left groin or lower abdominal discomfort, but otherwise, no complaints of any joint arthralgias or injuries from the fall. PAST MEDICAL HISTORY: As above. Patient has a history of lung cancer. PAST SURGICAL HISTORY: As above. SOCIAL HISTORY: Lives with family in a private house but no stairs. Premorbidly she states she was completely independent, ambulatory without assistive device. Current function, she was seen again on February 01 ambulating 50 feet with a rolling walker at a supervision level. Able to transfer sit to stand independently. REVIEW OF SYSTEMS: No headache, no lightheadedness, dizziness. No blurry vision, double vision. No nausea, vomiting, difficulty swallowing, difficulty chewing. No shortness of breath at rest. Again, she has some left anterior groin discomfort but no complaints of any neck or back pain. No joint arthralgias. No complaints of numbness, tingling. No swelling. No skin lesions noted. PHYSICAL EXAMINATION: General: Patient is an elderly woman seen lying in bed. She moves around the bed quite well. She does, again, complains of some left lower quadrant or groin discomfort, and there is a noted mass in this area. HEENT: She is normocephalic and atraumatic. Extraocular muscles appear intact. Neck: Supple. Extremities: Without any pitting edema or calf tenderness. Neuromuscular: She is awake, alert, and cooperative. Cranial nerves 2-12 are grossly intact. She has good motor power in the lower extremities. Mild weakness of the left lower extremity proximally due to discomfort in the groin 3/5 but better strength, otherwise, throughout the lower extremities. Knee flexion, extension, dorsiflexion, plantar flexion, and good right hip girdle movement. No gross arthritic change. Normal sensation to light touch and pinprick. Symmetric reflexes and independent bed mobility. OVERALL IMPRESSION: 1. Deficits in mobility, activities of daily living, mild and resolving. 2. Status post fall. 3. History of metastatic lung cancer with left lower quadrant or groin mass, which is known. 4. Anemia, stable. 5. Status post leukocytosis, resolved. 6. Hypoalbuminemia. 7. Elevated risk for deep vein thrombosis due to immobility. 8. Currently moving her bowels well. PLAN/SUGGESTION: 1. Continue physical therapy at the bedside. Transition to straight cane or without assistive device. Bed mobility transfers. Stairs if appropriate but currently states she has no stairs at home. 2. Out of bed to chair. 3. Safety fall precautions. 4. DVT prophylaxis apparently on subcutaneous heparin. 5. Follow up blood work as indicated. 6. Bowel regimen. Monitor for constipation but currently moving her bowels well. 7. Home with outpatient physical therapy if her balance remains an issue. ADITYA BRADSHAW M.D. [id number]
--- NOTE | 2019-02-03 14:15 | PN ---
Progress Note, Physician History of Present Illness: AWAKE, ALERT IN BED C/O LLQ ABDOMINAL PAIN AT SITE OF MASS AFEBRILE - Current Medication List Current Medications: Active Medications Acetaminophen (Tylenol -) 650 mg PO Q4H PRN PRN Reason: PAIN OR FEVER Docusate Sodium (Colace -) 100 mg PO TID [facility] Last Admin: 02/03/19 06:58 Dose: 100 mg Folic Acid (Folic Acid -) 1 mg PO DAILY [facility] Last Admin: 02/03/19 09:20 Dose: 1 mg Ertapenem 1 gm/ Sodium (Chloride) 50 mls @ 100 mls/hr IVPB Q24H [facility] Last Admin: 02/02/19 22:33 Dose: 100 mls/hr Metformin HCl (Glucophage -) 500 mg PO BID@0700,1630 [facility] Ondansetron HCl (Zofran -) 8 mg PO Q6H PRN PRN Reason: NAUSEA Rosuvastatin Calcium (Crestor -) 10 mg PO HS [facility] Last Admin: 02/02/19 22:33 Dose: 10 mg Senna (Senna -) 2 tab PO [facility] Last Admin: 02/02/19 22:33 Dose: 2 tab - Objective Vital Signs: Vital Signs Temperature 99.0 F 02/03/19 09:20 Pulse Rate 94 H 02/03/19 09:20 Respiratory Rate 18 02/03/19 09:20 Blood Pressure 114/76 02/03/19 09:20 O2 Sat by Pulse Oximetry (%) 98 02/02/19 21:12 Constitutional: Yes: No Distress Eyes: Yes: Conjunctiva Clear Cardiovascular: Yes: Regular Rate and Rhythm, S1, S2 Respiratory: Yes: Diminished Gastrointestinal: Yes: Normal Bowel Sounds, Soft, Other (+ LLQ MASS). No: Tenderness Edema: No Labs: CBC, BMP 02/02/19 05:20 02/01/19 19:50 INR, PTT INR 1.18 (0.83-1.09) H 01/30/19 13:26 Assessment/Plan UTI ESBL METASTATIC CA S/P SYNCOPE DM CONTINUE ERTAPENEM CONTACT PRECAUTIONS
--- NOTE | 2019-02-03 14:58 | CONS ---
DATE OF CONSULTATION: 01/31/2019 REFERRING PHYSICIAN: Usha Pollack MD REASON FOR CONSULTATION: Left lower quadrant abdominal pain. HISTORY OF PRESENT ILLNESS: The patient is a 79-year-old woman known to our department with stage IV non-small cell lung cancer with progression on Keytruda status post bilateral SCV neck and sacral palliative radiation therapy recently completed on January 21, 2019. She has had significant improvement of her sacral pain. She was admitted after a fall and losing her balance. CT of the head was negative. She is being managed for urinary tract infection and possible urosepsis. She complains of chronic pain in the left lower quadrant where she has a known subcutaneous abdominal wall mass, which was being monitored. She has mild nausea probably related to her current infection. She had an episode of severe constipation, which resolved with enema and laxative use. She has had no urinary changes or incontinence. Prior radiotherapy as noted. Recent chemotherapy with carboplatin, Alimta, and Keytruda. PAST MEDICAL HISTORY: As noted above. PAST SURGICAL HISTORY: Hysterectomy. SOCIAL HISTORY: Former tobacco use. No current alcohol use. FAMILY HISTORY: Noncontributory. PHYSICAL EXAMINATION: General: Well-appearing, elderly, female in no acute distress in the hospital bed. Vital Signs: Stable. Afebrile. HEENT: Moist mucous membranes. Anicteric sclerae. Clear oral cavity. Neck: No mass or adenopathy. Mild xerosis secondary to radiation but no desquamation. Chest: Lungs are clear. Cardiovascular: Regular. Abdomen: A palpable, tender mass in the left lower quadrant in the subcutaneous abdominal wall. Bowel sounds are active. No organomegaly or other intra- abdominal mass or distention. Mild hyperpigmentation in the intergluteal folds from recent radiation therapy. No desquamation. Extremities: Normal range of motion. Neurologic: Nonfocal. RADIOLOGIC DATA: CT head and cervical spine: No fracture or intracranial hemorrhage. IMPRESSION: This 79-year-old woman with progressive metastatic lung cancer status post radiation therapy on Keytruda with progressive abdominal wall disease in the left lower quadrant. She is currently being managed for urosepsis, and I recommend that she continue current medical management. Would also consider optimizing her pain with analgesics at this time. When medically stable, we can reconsider radiation therapy to the abdomen, most likely outpatient. Thank you for the courtesy of this consultation. RORO IGLESIAS M.D. ALDAIR/[id number]
[2019-02-03] MEDS: metFORMIN HCL 500 MG TABLET (FP) PO SCH (16:14)
[2019-02-03] MEDS: SODIUM CHLORIDE 1,000 ML IV SCH (16:14)
[2019-02-03] MEDS ORDERED: PT OWN MED DRAWER 7, Y5N ONE (17:38)
[2019-02-03] MEDS: ERTAPENEM SODIUM 1 GM in SODIUM CHLORIDE 50 ML IVPB SCH (18:25)
[2019-02-03] MEDS: ACETAMINOPHEN 325 MG TABLET (FP) PO PRN (19:30)
[2019-02-03] MEDS: SENNOSIDES 8.6MG TABLET (FP) PO SCH (22:04)
[2019-02-03] MEDS: ROSUVASTATIN CA 10 MG TABLET (FP) PO SCH (22:04)
[2019-02-04] MEDS: DOCUSATE SODIUM 100 MG CAPSULE (FP) PO SCH ×3 (06:31→22:14)
[2019-02-04] MEDS: metFORMIN HCL 500 MG TABLET (FP) PO SCH ×2 (06:31→16:42)
[2019-02-04] MEDS: FERROUS SO4 325 MG TABLET (FP) PO SCH (09:31)
[2019-02-04] MEDS: FOLIC ACID 1 MG TABLET (FP) PO SCH (09:31)
[2019-02-04] MEDS: POLYETHYLENE GLYCOL 3350 119 GM BTL PO SCH (09:32)
--- NOTE | 2019-02-04 11:15 | PN ---
Progress Note, Physician Chief Complaint: Fall Metastatic lung ca History of Present Illness: NAD, sitting at the edge of the bed c/o of mild LLQ pain, but improving bowel regimen improved On Ertapenem day 5 for ESBL UTI - Current Medication List Current Medications: Active Medications Acetaminophen (Tylenol -) 650 mg PO Q4H PRN PRN Reason: PAIN OR FEVER Last Admin: 02/03/19 19:30 Dose: 650 mg Docusate Sodium (Colace -) 100 mg PO TID [facility] Last Admin: 02/04/19 06:31 Dose: 100 mg Ferrous Sulfate (Feosol -) 325 mg PO DAILY [facility] Last Admin: 02/04/19 09:31 Dose: 325 mg Folic Acid (Folic Acid -) 1 mg PO DAILY [facility] Last Admin: 02/04/19 09:31 Dose: 1 mg Ertapenem 1 gm/ Sodium (Chloride) 50 mls @ 100 mls/hr IVPB Q24H [facility] Last Admin: 02/03/19 18:25 Dose: 100 mls/hr Sodium Chloride (Normal Saline -) 1,000 mls @ 42 mls/hr IV ASDIR [facility] Last Admin: 02/03/19 16:14 Dose: 42 mls/hr Metformin HCl (Glucophage -) 500 mg PO BID@0700,1630 [facility] Last Admin: 02/04/19 06:31 Dose: Not Given Ondansetron HCl (Zofran -) 8 mg PO Q6H PRN PRN Reason: NAUSEA Polyethylene Glycol (Miralax (For Daily Use) -) 17 gm PO DAILY [facility] Last Admin: 02/04/19 09:32 Dose: Not Given Rosuvastatin Calcium (Crestor -) 10 mg PO HS [facility] Last Admin: 02/03/19 22:04 Dose: 10 mg Senna (Senna -) 2 tab PO [facility] Last Admin: 02/03/19 22:04 Dose: 2 tab - Objective Vital Signs: Vital Signs Temperature 98 F 02/04/19 10:00 Pulse Rate 105 H 02/04/19 10:00 Respiratory Rate 18 02/04/19 10:00 Blood Pressure 120/66 02/04/19 10:00 O2 Sat by Pulse Oximetry (%) 96 02/03/19 22:00 Constitutional: Yes: Well Nourished, No Distress, Calm Cardiovascular: Yes: Regular Rate and Rhythm Respiratory: Yes: Regular Gastrointestinal: Yes: WNL, Normal Bowel Sounds, Soft, Tenderness (LLQ) Musculoskeletal: Yes: WNL Extremities: Yes: WNL Edema: No Peripheral Pulses WNL: Yes Neurological: Yes: Alert, Oriented Psychiatric: Yes: Alert, Oriented Labs: CBC, BMP 02/02/19 05:20 02/01/19 19:50 INR, PTT INR 1.18 (0.83-1.09) H 01/30/19 13:26 Problem List - Problems (1) Hypokalemia Assessment/Plan: -resolved Code(s): E87.6 - HYPOKALEMIA (2) Diabetes Assessment/Plan: -Diabetic/sodium diet -A1c at 6.9 -D/C BGM and ISS, since appetite has improved Code(s): E11.9 - TYPE 2 DIABETES MELLITUS WITHOUT COMPLICATIONS Qualifiers: Diabetes mellitus type: type 2 (3) Metastatic lung cancer (metastasis from lung to other site) Assessment/Plan: -Seen by Oncology -radiation oncology consult appreciated -pain control with morphine -Palliative consult Code(s): C34.90 - MALIGNANT NEOPLASM OF UNSP PART OF UNSP BRONCHUS OR LUNG Qualifiers: Laterality: left Qualified Code(s): C34.92 - Malignant neoplasm of unspecified part of left bronchus or lung (4) Anemia Assessment/Plan: -chronic -hematology on board - iron % low -start Ferrous sulfate po daily -Stool OB pending -thyroid, B12, FA-unremarkable Code(s): D64.9 - ANEMIA, UNSPECIFIED (5) Frequent falls Assessment/Plan: -Physiatry consult -Neurology consult Code(s): R29.6 - REPEATED FALLS (6) UTI (urinary tract infection) Assessment/Plan: -Hx of ESBL -Ertapenem -UA/UC : Microbiology 01/30/19 13:26 Blood - Peripheral Venous Blood Culture - Preliminary NO GROWTH OBTAINED AFTER 96 HOURS, INCUBATION TO CONTINUE FOR 1 DAYS. 01/30/19 13:26 Blood - Peripheral Venous Blood Culture - Preliminary NO GROWTH OBTAINED AFTER 96 HOURS, INCUBATION TO CONTINUE FOR 1 DAYS. 01/30/19 13:27 Urine - Urine Clean Catch Urine Culture - Final Escherichia Coli Esbl [employer] Strep Agalactiae Group B -ID consult Code(s): N39.0 - URINARY TRACT INFECTION, SITE NOT SPECIFIED Qualifiers: Urinary tract infection type: acute cystitis Hematuria presence: without hematuria Qualified Code(s): N30.00 - Acute cystitis without hematuria Assessment/Plan See problem list
[2019-02-04] MEDS: SODIUM CHLORIDE 1,000 ML IV SCH (14:07)
[2019-02-04 14:10] LABS: BLOOD UREA NITROGEN 4.8 mg/dL (7-18); CALCIUM 8.2 mg/dL (8.5-10.1); CREATININE 0.6 mg/dL (0.55-1.3); POTASSIUM 3.5 mmol/L (3.5-5.1)
[2019-02-04] MEDS: ACETAMINOPHEN 325 MG TABLET (FP) PO PRN (16:34)
--- NOTE | 2019-02-04 16:52 | PN ---
Progress Note, Physician History of Present Illness: AWAKE, ALERT IN BED C/O LLQ ABDOMINAL PAIN AT SITE OF MASS AFEBRILE - Current Medication List Current Medications: Active Medications Acetaminophen (Tylenol -) 650 mg PO Q4H PRN PRN Reason: PAIN OR FEVER Last Admin: 02/04/19 16:34 Dose: 650 mg Docusate Sodium (Colace -) 100 mg PO TID [facility] Last Admin: 02/04/19 14:04 Dose: 100 mg Ferrous Sulfate (Feosol -) 325 mg PO DAILY [facility] Last Admin: 02/04/19 09:31 Dose: 325 mg Folic Acid (Folic Acid -) 1 mg PO DAILY [facility] Last Admin: 02/04/19 09:31 Dose: 1 mg Ertapenem 1 gm/ Sodium (Chloride) 50 mls @ 100 mls/hr IVPB Q24H [facility] Last Admin: 02/03/19 18:25 Dose: 100 mls/hr Sodium Chloride (Normal Saline -) 1,000 mls @ 42 mls/hr IV ASDIR [facility] Last Admin: 02/04/19 14:07 Dose: 42 mls/hr Metformin HCl (Glucophage -) 500 mg PO BID@0700,1630 [facility] Last Admin: 02/04/19 16:42 Dose: Not Given Ondansetron HCl (Zofran -) 8 mg PO Q6H PRN PRN Reason: NAUSEA Polyethylene Glycol (Miralax (For Daily Use) -) 17 gm PO DAILY [facility] Last Admin: 02/04/19 09:32 Dose: Not Given Rosuvastatin Calcium (Crestor -) [address] [facility] Last Admin: 02/03/19 22:04 Dose: 10 mg Senna (Senna -) [address] [facility] Last Admin: 02/03/19 22:04 Dose: 2 tab - Objective Vital Signs: Vital Signs Temperature 98.8 F 02/04/19 14:00 Pulse Rate 85 02/04/19 14:00 Respiratory Rate 20 02/04/19 14:00 Blood Pressure 124/68 02/04/19 14:00 O2 Sat by Pulse Oximetry (%) 96 02/03/19 22:00 Constitutional: Yes: No Distress Eyes: Yes: Conjunctiva Clear Cardiovascular: Yes: Regular Rate and Rhythm, S1, S2 Respiratory: Yes: CTA Bilaterally Gastrointestinal: Yes: Normal Bowel Sounds, Soft, Tenderness, Other (+ FIRM LLQ MASS) Edema: No Labs: CBC, BMP 02/02/19 05:20 02/04/19 13:06 INR, PTT INR 1.18 (0.83-1.09) H 01/30/19 13:26 Assessment/Plan UTI ESBL METASTATIC CA S/P SYNCOPE DM CONTINUE ERTAPENEM #5 CONTACT PRECAUTIONS
[2019-02-04] MEDS ORDERED: PT OWN MED DRAWER 7, Y5N ONE (18:21)
[2019-02-04] MEDS: ERTAPENEM SODIUM 1 GM in SODIUM CHLORIDE 50 ML IVPB SCH (18:23)
--- NOTE | 2019-02-04 19:19 | PN ---
Progress Note (short form) - Note Progress Note: Patient seen and examined Complains of pain LLQ abdominal wall Receiving antibiotics for resistant ESBL UTI Last Vital Signs Temp Pulse Resp BP Pulse Ox 98.8 F 85 20 124/68 96 02/04/19 14:00 02/04/19 14:00 02/04/19 14:00 02/04/19 14:00 02/03/19 22:00 HEENT: ODETTE, EOM Intact Cor: RSR, No murmurs, No gallops Lungs: Clear to P&A Abd: Soft, Normal bowel sounds, No organomegaly, LLQ mass Ext:No significant edema Skin: No rashes, Integument intact CBC, BMP 02/02/19 05:20 02/04/19 13:06 Current Medications Generic Name Dose Route Start Last Admin Trade Name Freq PRN Reason Stop Dose Admin Acetaminophen 650 mg 01/31/19 12:12 02/04/19 16:34 Tylenol - PO 650 mg Q4H PRN Administration PAIN OR FEVER Docusate Sodium 100 mg 01/30/19 22:00 02/04/19 14:04 Colace - PO 100 mg TID LYNN Administration Ferrous Sulfate 325 mg 02/04/19 10:00 02/04/19 09:31 Feosol - PO 325 mg DAILY LYNN Administration Folic Acid 1 mg 01/31/19 10:00 02/04/19 09:31 Folic Acid - PO 1 mg DAILY LYNN Administration Ertapenem 1 gm/ Sodium 50 mls @ 100 mls/hr 01/31/19 19:00 02/04/19 18:23 Chloride IVPB 100 mls/hr Q24H LYNN Administration Metformin HCl 500 mg 02/03/19 16:30 02/04/19 16:42 Glucophage - PO Not Given BID@0700,1630 LYNN Ondansetron HCl 8 mg 01/30/19 20:34 Zofran - PO Q6H PRN NAUSEA Polyethylene Glycol 17 gm 02/04/19 10:00 02/04/19 09:32 Miralax (For Daily Use) - PO Not Given DAILY LYNN Rosuvastatin Calcium 10 mg 01/31/19 22:00 02/03/19 22:04 Crestor - PO 10 mg HS LYNN Administration Senna 2 tab 01/30/19 22:00 02/03/19 22:04 Senna - PO 2 tab HS LYNN Administration Impression: ESBL UTI- on antibiotics Metastatic lung ca For out patient palliative RT
[2019-02-04] MEDS: SENNOSIDES 8.6MG TABLET (FP) PO SCH (22:14)
[2019-02-04] MEDS: ROSUVASTATIN CA 10 MG TABLET (FP) PO SCH (22:14)
[2019-02-05] MEDS: DOCUSATE SODIUM 100 MG CAPSULE (FP) PO SCH ×3 (06:42→22:45)
[2019-02-05] MEDS: metFORMIN HCL 500 MG TABLET (FP) PO SCH ×2 (06:42→16:52)
[2019-02-05] MEDS: POLYETHYLENE GLYCOL 3350 119 GM BTL PO SCH (11:41)
[2019-02-05] MEDS: FERROUS SO4 325 MG TABLET (FP) PO SCH (11:41)
[2019-02-05] MEDS: FOLIC ACID 1 MG TABLET (FP) PO SCH (11:41)
--- NOTE | 2019-02-05 12:53 | PN ---
Progress Note, Physician History of Present Illness: AWAKE, ALERT IN BED C/O LLQ ABDOMINAL PAIN AT SITE OF MASS NO C/O DYSURIA AFEBRILE - Current Medication List Current Medications: Active Medications Acetaminophen (Tylenol -) 650 mg PO Q4H PRN PRN Reason: PAIN OR FEVER Last Admin: 02/04/19 16:34 Dose: 650 mg Docusate Sodium (Colace -) 100 mg PO TID [facility] Last Admin: 02/05/19 06:42 Dose: 100 mg Ferrous Sulfate (Feosol -) 325 mg PO DAILY [facility] Last Admin: 02/05/19 11:41 Dose: 325 mg Folic Acid (Folic Acid -) 1 mg PO DAILY [facility] Last Admin: 02/05/19 11:41 Dose: 1 mg Ertapenem 1 gm/ Sodium (Chloride) 50 mls @ 100 mls/hr IVPB Q24H [facility] Last Admin: 02/04/19 18:23 Dose: 100 mls/hr Metformin HCl (Glucophage -) 500 mg PO BID@0700,1630 [facility] Last Admin: 02/05/19 06:42 Dose: 500 mg Ondansetron HCl (Zofran -) 8 mg PO Q6H PRN PRN Reason: NAUSEA Polyethylene Glycol (Miralax (For Daily Use) -) 17 gm PO DAILY [facility] Last Admin: 02/05/19 11:41 Dose: Not Given Rosuvastatin Calcium (Crestor -) 10 mg PO HS [facility] Last Admin: 02/04/19 22:14 Dose: 10 mg Senna (Senna -) 2 tab PO [facility] Last Admin: 02/04/19 22:14 Dose: 2 tab - Objective Vital Signs: Vital Signs Temperature 99.5 F 02/05/19 06:00 Pulse Rate 86 02/05/19 06:00 Respiratory Rate 18 02/05/19 06:00 Blood Pressure 127/75 02/05/19 06:00 O2 Sat by Pulse Oximetry (%) 97 02/05/19 06:00 Constitutional: Yes: No Distress Eyes: Yes: Conjunctiva Clear Cardiovascular: Yes: Regular Rate and Rhythm, S1, S2 Respiratory: Yes: CTA Bilaterally Gastrointestinal: Yes: Normal Bowel Sounds, Soft, Tenderness, Other (+ TENDERNESS LLQ MASS) Edema: No Labs: CBC, BMP 02/02/19 05:20 02/04/19 13:06 INR, PTT INR 1.18 (0.83-1.09) H 01/30/19 13:26 Assessment/Plan UTI ESBL METASTATIC CA S/P SYNCOPE DM ERTAPENEM DAY #7 D/C ANTIBIOTIC AFTER TODAY'S DOSE
--- NOTE | 2019-02-05 19:09 | PN ---
Progress Note, Physician Chief Complaint: Fall Metastatic lung ca History of Present Illness: NAD, sitting at the edge of the bed c/o of mild LLQ pain, but improving bowel regimen improved On Ertapenem day 6 for ESBL UTI - Current Medication List Current Medications: Active Medications Acetaminophen (Tylenol -) 650 mg PO Q4H PRN PRN Reason: PAIN OR FEVER Last Admin: 02/04/19 16:34 Dose: 650 mg Docusate Sodium (Colace -) 100 mg PO TID [facility] Last Admin: 02/05/19 15:00 Dose: Not Given Ferrous Sulfate (Feosol -) 325 mg PO DAILY [facility] Last Admin: 02/05/19 11:41 Dose: 325 mg Folic Acid (Folic Acid -) 1 mg PO DAILY [facility] Last Admin: 02/05/19 11:41 Dose: 1 mg Ertapenem 1 gm/ Sodium (Chloride) 50 mls @ 100 mls/hr IVPB Q24H [facility] Last Admin: 02/04/19 18:23 Dose: 100 mls/hr Metformin HCl (Glucophage -) 500 mg PO BID@0700,1630 [facility] Last Admin: 02/05/19 16:52 Dose: 500 mg Ondansetron HCl (Zofran -) 8 mg PO Q6H PRN PRN Reason: NAUSEA Polyethylene Glycol (Miralax (For Daily Use) -) 17 gm PO DAILY [facility] Last Admin: 02/05/19 11:41 Dose: Not Given Rosuvastatin Calcium (Crestor -) 10 mg PO HS [facility] Last Admin: 02/04/19 22:14 Dose: 10 mg Senna (Senna -) 2 tab PO [facility] Last Admin: 02/04/19 22:14 Dose: 2 tab - Objective Vital Signs: Vital Signs Temperature 98.8 F 02/05/19 17:00 Pulse Rate 92 H 02/05/19 17:00 Respiratory Rate 18 02/05/19 17:00 Blood Pressure 120/59 L 02/05/19 17:00 O2 Sat by Pulse Oximetry (%) 97 02/05/19 06:00 Constitutional: Yes: Well Nourished, No Distress, Calm Cardiovascular: Yes: Regular Rate and Rhythm Respiratory: Yes: Regular Gastrointestinal: Yes: Normal Bowel Sounds, Soft, Tenderness (LLQ) Genitourinary: Yes: WNL Musculoskeletal: Yes: WNL Edema: No Peripheral Pulses WNL: Yes Neurological: Yes: Alert, Oriented Psychiatric: Yes: Alert, Oriented Labs: CBC, BMP 02/02/19 05:20 02/04/19 13:06 INR, PTT INR 1.18 (0.83-1.09) H 01/30/19 13:26 Problem List - Problems (1) Hypokalemia Assessment/Plan: -resolved Code(s): E87.6 - HYPOKALEMIA (2) Diabetes Assessment/Plan: -Diabetic/sodium diet -A1c at 6.9 -D/C BGM and ISS, since appetite has improved Code(s): E11.9 - TYPE 2 DIABETES MELLITUS WITHOUT COMPLICATIONS Qualifiers: Diabetes mellitus type: type 2 (3) Metastatic lung cancer (metastasis from lung to other site) Assessment/Plan: -Seen by Oncology -radiation oncology consult appreciated -pain control with morphine -Palliative consult -F/U O/P for palliative radiation Code(s): C34.90 - MALIGNANT NEOPLASM OF UNSP PART OF UNSP BRONCHUS OR LUNG Qualifiers: Laterality: left Qualified Code(s): C34.92 - Malignant neoplasm of unspecified part of left bronchus or lung (4) Anemia Assessment/Plan: -chronic -hematology on board - iron % low -start Ferrous sulfate po daily -Stool OB pending -thyroid, B12, FA-unremarkable Code(s): D64.9 - ANEMIA, UNSPECIFIED (5) Frequent falls Assessment/Plan: -Physiatry consult -Neurology consult Code(s): R29.6 - REPEATED FALLS (6) UTI (urinary tract infection) Assessment/Plan: -Hx of ESBL -Ertapenem, finish 7 days -UA/UC : Microbiology 01/30/19 13:26 Blood - Peripheral Venous Blood Culture - Preliminary NO GROWTH OBTAINED AFTER 96 HOURS, INCUBATION TO CONTINUE FOR 1 DAYS. 01/30/19 13:26 Blood - Peripheral Venous Blood Culture - Preliminary NO GROWTH OBTAINED AFTER 96 HOURS, INCUBATION TO CONTINUE FOR 1 DAYS. 01/30/19 13:27 Urine - Urine Clean Catch Urine Culture - Final Escherichia Coli Esbl Child Study Team Director Strep Agalactiae Group B -ID consult Code(s): N39.0 - URINARY TRACT INFECTION, SITE NOT SPECIFIED Qualifiers: Urinary tract infection type: acute cystitis Hematuria presence: without hematuria Qualified Code(s): N30.00 - Acute cystitis without hematuria Assessment/Plan See problem list
[2019-02-05] MEDS: ERTAPENEM SODIUM 1 GM in SODIUM CHLORIDE 50 ML IVPB SCH (19:47)
[2019-02-05] MEDS: SENNOSIDES 8.6MG TABLET (FP) PO SCH (22:45)
[2019-02-05] MEDS: ROSUVASTATIN CA 10 MG TABLET (FP) PO SCH (22:46)
[2019-02-06] MEDS: DOCUSATE SODIUM 100 MG CAPSULE (FP) PO SCH (05:51)
[2019-02-06] MEDS: metFORMIN HCL 500 MG TABLET (FP) PO SCH (06:15)
[2019-02-06] MEDS: FOLIC ACID 1 MG TABLET (FP) PO SCH (10:27)
[2019-02-06] MEDS: FERROUS SO4 325 MG TABLET (FP) PO SCH (10:28)
[2019-02-06] MEDS: POLYETHYLENE GLYCOL 3350 119 GM BTL PO SCH (10:28)
--- NOTE | 2019-02-06 11:47 | DS ---
Physical Examination Vital Signs: Vital Signs Temperature 99.1 F 02/06/19 05:00 Pulse Rate 93 H 02/06/19 05:00 Respiratory Rate 18 02/06/19 05:00 Blood Pressure 120/49 L 02/06/19 05:00 O2 Sat by Pulse Oximetry (%) 100 02/06/19 06:00 Findings/Remarks: 78yo woman with lung cancer on Keytruda c/o fall earlier today before she was about to take shower and lost her balance and fell. Denied any trauma to head or LOC. She denied any pain right now except for abdominal pain which she had earlier from lung ca mets. Pt sent down to ED for evaluation by Dr. Kerr who suspected possible syncope. Last chemo was on sun. Constitutional: Yes: Well Nourished, No Distress, Calm Cardiovascular: Yes: Regular Rate and Rhythm Respiratory: Yes: Regular Gastrointestinal: Yes: Normal Bowel Sounds, Soft, Tenderness (LLQ) Musculoskeletal: Yes: WNL Extremities: Yes: WNL Edema: No Peripheral Pulses WNL: Yes Neurological: Yes: Alert, Oriented Psychiatric: Yes: Alert, Oriented Labs: CBC, BMP 02/02/19 05:20 02/04/19 13:06 Discharge Summary Reason For Visit: SYNCOPE Current Active Problems Anemia (Acute) Frequent falls (Acute) Hypokalemia (Acute) Lung cancer (Acute) Syncope (Acute) Hospital Course: Laboratory Last Values WBC 9.6 K/mm3 (4.0-10.0) 02/02/19 05:20 RBC 3.40 M/mm3 (3.60-5.2) L 02/02/19 05:20 Hgb 10.4 GM/dL (10.7-15.3) L 02/02/19 05:20 Hct 30.8 % (32.4-45.2) L 02/02/19 05:20 MCV 90.6 fl (80-96) 02/02/19 05:20 MCH 30.6 pg (25.7-33.7) 02/02/19 05:20 MCHC 33.7 g/dl (32.0-36.0) 02/02/19 05:20 RDW 17.9 % (11.6-15.6) H 02/02/19 05:20 Plt Count 450 K/MM3 (134-434) H 02/02/19 05:20 MPV 6.2 fl (7.5-11.1) L 02/02/19 05:20 Absolute Neuts (auto) 10.1 K/mm3 (1.5-8.0) H 01/30/19 13:26 Neutrophils % 86.9 % (42.8-82.8) H 01/30/19 13:26 Lymphocytes % 5.5 % (8-40) L D 01/30/19 13:26 Monocytes % 6.4 % (3.8-10.2) 01/30/19 13:26 Eosinophils % 0.6 % (0-4.5) 01/30/19 13:26 Basophils % 0.6 % (0-2.0) 01/30/19 13:26 Nucleated RBC % 0 % (0-0) 01/30/19 13:26 PT with INR 13.90 SEC (9.7-13.0) H 01/30/19 13:26 INR 1.18 (0.83-1.09) H 01/30/19 13:26 PTT (Actin FS) 32.8 SECONDS (25.2-36.5) 01/30/19 13:26 VBG pH 7.46 (7.31-7.41) H 01/30/19 13:26 POC VBG pCO2 36.9 mmHg (41-51) L 01/30/19 13:26 POC VBG pO2 75.5 mmHg (30-40) H 01/30/19 13:26 VBG HCO3 25.6 mmol/L (23-29) 01/30/19 13:26 VBG O2 Sat (Ariana) 95.9 % (70-80) H 01/30/19 13:26 VBG Base Excess 2.2 meq/l (-2-2) H 01/30/19 13:26 Sodium 138 mmol/L (136-145) 02/04/19 13:06 Potassium 3.5 mmol/L (3.5-5.1) 02/04/19 13:06 Chloride 105 mmol/L (98-107) 02/04/19 13:06 Carbon Dioxide 28 mmol/L (21-32) 02/04/19 13:06 Anion Gap 5 MMOL/L (8-16) L 02/04/19 13:06 BUN 4.8 mg/dL (7-18) L 02/04/19 13:06 Creatinine 0.6 mg/dL (0.55-1.3) 02/04/19 13:06 Est GFR (CKD-EPI)AfAm 101.90 02/04/19 13:06 Est GFR (CKD-EPI)NonAf 87.92 02/04/19 13:06 POC Glucometer 125 UNITS (80-120) 02/05/19 06:09 Random Glucose 110 mg/dL (74-106) H 02/04/19 13:06 Hemoglobin A1c % 6.9 % (4.2-6.3) H 01/31/19 16:30 Lactic Acid 0.7 mmol/L (0.4-2.0) 01/30/19 18:00 Calcium 8.2 mg/dL (8.5-10.1) L 02/04/19 13:06 Magnesium 2.0 mg/dL (1.8-2.4) 01/31/19 08:40 Iron 24 ug/dL (27-139) L 01/31/19 16:30 TIBC 234 ug/dL (250-450) L 01/31/19 16:30 Iron Saturation 10 % (15-55) L 01/31/19 16:30 Unsaturated IBC 210 ug/dL (118-369) 01/31/19 16:30 Ferritin 202.6 ng/ml (8-388) 01/31/19 13:30 Total Bilirubin 0.2 mg/dL (0.2-1) 02/01/19 19:50 AST 13 U/L (15-37) L 02/01/19 19:50 ALT 9 U/L (13-61) L 02/01/19 19:50 Alkaline Phosphatase 89 U/L (45-117) 02/01/19 19:50 Troponin I < 0.02 ng/ml (0.00-0.05) 01/31/19 08:40 Total Protein 6.7 g/dl (6.4-8.2) 02/01/19 19:50 Albumin 2.6 g/dl (3.4-5.0) L 02/01/19 19:50 Vitamin B12 3799 pg/ml (193-986) H 01/31/19 13:30 Serum Folate 27 ng/mL (3.1-17.5) H 01/31/19 13:30 TSH 0.26 uIU/ml (0.358-3.74) L 01/31/19 08:40 Free T4 1.40 ng/dl (0.76-1.46) 01/31/19 13:30 Cortisol PM Sample 8.8 ug/dL (2.3-11.9) 01/30/19 18:00 Urine Color Yellow 01/30/19 13:27 Urine Appearance Clear 01/30/19 13:27 Urine pH 7.5 (5.0-8.0) 01/30/19 13:27 Ur Specific Beverly 1.011 (1.010-1.035) 01/30/19 13:27 Urine Protein 2+ (NEGATIVE) H 01/30/19 13:27 Urine Glucose (UA) Negative (NEGATIVE) 01/30/19 13:27 Urine Ketones Negative (NEGATIVE) 01/30/19 13:27 Urine Blood Trace (NEGATIVE) 01/30/19 13:27 Urine Nitrite Negative (NEGATIVE) 01/30/19 13:27 Urine Bilirubin Negative (NEGATIVE) 01/30/19 13:27 Urine Urobilinogen 0.2 mg/dL (0.2-1.0) 01/30/19 13:27 Ur Leukocyte Esterase 2+ (NEGATIVE) H 01/30/19 13:27 Urine WBC (Auto) 31 /hpf (0-5) 01/30/19 13:27 Urine RBC (Auto) 5 /hpf (0-4) 01/30/19 13:27 Urine Casts (Auto) 2 /lpf (0-8) 01/30/19 13:27 U Epithel Cells (Auto) 7.4 /HPF (0-5/HPF) 01/30/19 13:27 U Sm Round Cell (Auto) None seen 01/30/19 13:27 Urine Bacteria (Auto) 15.9 /hpf (NEGATIVE) 01/30/19 13:27 Microbiology 01/30/19 13:26 Blood - Peripheral Venous Blood Culture - Final NO GROWTH AFTER 5 DAYS INCUBATION 01/30/19 13:26 Blood - Peripheral Venous Blood Culture - Final NO GROWTH AFTER 5 DAYS INCUBATION 01/30/19 13:27 Urine - Urine Clean Catch Urine Culture - Final Escherichia Coli Esbl Liquor Establishment Manager Strep Agalactiae Group B Vital Signs Temp 99.1 F 02/06/19 05:00 Pulse 93 H 02/06/19 05:00 Resp 18 02/06/19 05:00 BP 120/49 L 02/06/19 05:00 Pulse Ox 100 02/06/19 06:00 Intake & Output 02/05/19 02/05/19 02/06/19 11:59 23:59 11:59 Intake Total 100 650 100 Balance 100 650 100 Intake: IVPB 100 Oral 100 650 Other: Voiding Method Toilet Toilet Toilet # Unmeasured Voids Void 2 1 Bowel Movement No No Body Mass Index (BMI) 23.0 Condition: Stable - Instructions Referrals: Trace Taylor MD [Staff Physician] - Harpreet Magallanes MD [Staff Physician] - Disposition: VNS/HOME HEALTH CARE - Home Medications Comprehensive Discharge Medication List: Ambulatory Orders Rosuvastatin [Crestor -] 10 mg PO DAILY 07/25/18 metFORMIN HCL [Metformin ER Osmotic] 500 mg PO BIDAC 07/25/18 Docusate Sodium [Colace -] 100 mg PO TID #90 capsule 07/31/18 Folic Acid - 1 mg PO DAILY #30 tablet 07/31/18 Sennosides [Senna -] 2 tab PO HS #60 tablet 07/31/18 Ondansetron HCl [Zofran] 8 mg PO QID PRN 01/30/19 Prochlorperazine Maleate [Compazine] 10 mg PO TID PRN 01/30/19 Tramadol HCl 50 mg PO ASDIR PRN 01/30/19
--- NOTE | 2019-02-06 14:32 | PN ---
Progress Note (short form) - Note Progress Note: NEUROLOGY PROGRESS: Events reviewed and discussed with staff, CAROLINE Huertas and Dr. Taylor. Granddaughter at bedside aiding in translation. S/P IV Erepenam for UTI. Still with persistent feeling of numbness over left abdomen, described as " going asleep." Also LBP radiating from back down left anterior leg Now ambulating with PT with quad cane. Carotid duplex: min athlerosclerotic disease without hemodynamically significant stenosis. CT C/A/P 12/23/18: lytic lesion at level of S1 increased in size from prior imaging. Anterior abdominal mass in LLQ. Bone Scan 07/26/18: heterogenous degenerative uptake in thoracic spine. Potential radioactive activity in LLQ and medial L calf. ? contamination from dye. ALONA: Pos SLR on L. L pelvic mass. NEURO: Strength normal. Absent AJ on L. Decreased sensation to pinprick from approx level of breast (T4). Decreased vibration both toes. Romberg +/- Gait: Flexed, sl shuffle. Difficulty with L toe walk. Impression: S1 radiculopathy secondary to lytic lesion R/O thoracic spine myelopathy (i.e epidural met with cord compression) Suggest: MRI of thoracic spine (C+/C-) RT consult Re: S1 Lytic lesion Thank you very much, Yusef Su MD
[2019-02-06 14:39] VITALS: BP 121/55; PULSE 90; TEMP 98.9
== END 2019-02-06 14:56 | disposition home health service (06) | DRG 542 ==
LOC: JER 12:36 → JERBED 12:37 → J4W 01-31 14:16 → OBSVTOIN 02-03 12:37
PROVIDERS: ADMIT Family Medicine; ATTEND Family Medicine
DX: C79.51 Secondary malignant neoplasm of bone (principal); G93.41 Metabolic encephalopathy; C34.92 Malignant neoplasm of unspecified part of left bronchus or lung; N39.0 Urinary tract infection, site not specified; R55 Syncope and collapse; D64.9 Anemia, unspecified; E87.6 Hypokalemia; E11.9 Type 2 diabetes mellitus without complications; Z16.12 Extended spectrum beta lactamase (ESBL) resistance; R29.6 Repeated falls; E86.0 Dehydration; R20.2 Paresthesia of skin; E78.5 Hyperlipidemia, unspecified; D72.829 Elevated white blood cell count, unspecified; M54.18 Radiculopathy, sacral and sacrococcygeal region
CPT/HCPCS: 36415; 70450-TC; 70552-TC; 71045-TC-FY; 72125-TC; 80048; 80053; 81003; 82533; 82607; 82728; 82746; 82803; 82962; 83036; 83540; 83550; 83605; 83735; 84439; 84443; 84484; 85025; 85027; 85610; 85730; 87040; 87077; 87086; 87186; 93005; 93010; 93306-TC; 93880-TC; 97116-GP; 97162-GP; 99285-25; A9579; G0378; J0131; J7030

== ENCOUNTER → 2019-02-12 | Day surgery (SDC) | payer OTHER | LOC: JONCCHEMO 07:10 ==

== ENCOUNTER → 2019-02-13 | Day surgery (SDC) | payer OTHER | LOC: JONCCHEMO 07:02 ==

== ENCOUNTER 2019-02-27 06:34 | Day surgery (SDC) | payer OTHER ==
[2019-02-27 09:53] LABS: BASO % 0.4 % (0-2.0); EOS % 2.6 % (0-4.5); HEMATOCRIT 28.2 % (32.4-45.2); HEMOGLOBIN 9.5 GM/dL (10.7-15.3); MCH 30.3 pg (25.7-33.7); MCHC 33.8 g/dl (32.0-36.0); MEAN CELL VOLUME 89.7 fl (80-96); MEAN PLT VOLUME 6.2 fl (7.5-11.1); MONO % 8.9 % (3.8-10.2); NEUT % 83.1 % (42.8-82.8); PLATELET COUNT 526 K/MM3 (134-434); RBC 3.14 M/mm3 (3.60-5.2); RDW 15.3 % (11.6-15.6); WHITE BLOOD COUNT 8.2 K/mm3 (4.0-10.0)
[2019-02-27] MEDS ORDERED: ZOLEDRONIC ACID 4 MG in SODIUM CHLORIDE 100 ML IVPB ONE (10:00)
[2019-02-27 10:31] LABS: ALBUMIN 2.5 g/dl (3.4-5.0); BILIRUBIN,DIRECT 0.1 mg/dL (0.0-0.2); BILIRUBIN,TOTAL 0.1 mg/dL (0.2-1); BLOOD UREA NITROGEN 6.9 mg/dL (7-18); CALCIUM 8.6 mg/dL (8.5-10.1); CREATININE 0.6 mg/dL (0.55-1.3); MAGNESIUM 2.1 mg/dL (1.8-2.4); TOT PROT 7.2 g/dl (6.4-8.2)
[2019-02-27] MEDS ORDERED: ACETAMINOPHEN 325 MG TABLET (FP) PO ONE (14:00)
[2019-02-27] MEDS ORDERED: PORTA CATH FLUSH 10 ML IVPUSH ONE (16:02)
[2019-02-27 16:05] VITALS: BP 120/64; PULSE 84; TEMP 98.9
== END 2019-02-27 12:45 | disposition home or self-care (01) ==
LOC: JONCCHEMO 06:34 → J7W 13:15
PROVIDERS: ATTEND Internal Medicine Hematology & Oncology
DX: C34.11 Malignant neoplasm of upper lobe, right bronchus or lung (principal)
CPT/HCPCS: 36415; 80048; 80076; 83735; 85025; 96365; 96417; J3489

== ENCOUNTER 2019-03-05 07:06 | Day surgery (SDC) | payer OTHER ==
[2019-03-05] MEDS ORDERED: SODIUM CHLORIDE IVPB ONE (10:00)
[2019-03-05] MEDS ORDERED: PACLITAXEL PROTEIN BOUND IVPB ONE (10:00)
[2019-03-05] MEDS ORDERED: DEXAMETHASONE SOD PHOSPHATE 20 MG/5 ML VIAL IVPB ONE (11:00)
[2019-03-05] MEDS ORDERED: SODIUM CHLORIDE 500 ML IV SCH (11:00)
[2019-03-05] MEDS ORDERED: DEXAMETHASONE SOD PHOSPHATE 10 MG/1 ML VIAL IVPB ONE (11:00)
[2019-03-05] MEDS ORDERED: FAMOTIDINE 20 MG/50 ML IVPB 20 MG/50 ML MG IVPB ONE (11:01)
[2019-03-05 11:05] LABS: BASO % 0.3 % (0-2.0); EOS % 2.3 % (0-4.5); HEMATOCRIT 30.1 % (32.4-45.2); HEMOGLOBIN 9.9 GM/dL (10.7-15.3); LYMPH % 5.9 % (8-40); MCH 29.5 pg (25.7-33.7); MEAN CELL VOLUME 89.4 fl (80-96); MEAN PLT VOLUME 6.1 fl (7.5-11.1); MONO % 8.9 % (3.8-10.2); NEUT % 82.6 % (42.8-82.8); PLATELET COUNT 515 K/MM3 (134-434); RBC 3.37 M/mm3 (3.60-5.2); RDW 14.9 % (11.6-15.6); WHITE BLOOD COUNT 8.3 K/mm3 (4.0-10.0)
[2019-03-05 11:31] LABS: ALBUMIN 2.5 g/dl (3.4-5.0); BILIRUBIN,DIRECT 0.1 mg/dL (0.0-0.2); BILIRUBIN,TOTAL 0.2 mg/dL (0.2-1); BLOOD UREA NITROGEN 11.2 mg/dL (7-18); CALCIUM 8.5 mg/dL (8.5-10.1); CREATININE 0.7 mg/dL (0.55-1.3); MAGNESIUM 2.2 mg/dL (1.8-2.4); POTASSIUM 3.7 mmol/L (3.5-5.1); TOT PROT 7.6 g/dl (6.4-8.2)
[2019-03-05] MEDS ORDERED: DEXAMETHASONE INJECTION 10 MG, DIPHENHYDRAMINE 25 MG in SODIUM CHLORIDE 100 ML IVPB ONE (11:45)
[2019-03-05 16:02] VITALS: TEMP 98.5
[2019-03-05] MEDS ORDERED: PORTA CATH FLUSH 10 ML IVPUSH ONE (16:02)
[2019-03-05 16:03] VITALS: BP 122/53; PULSE 89
== END 2019-03-05 16:19 | disposition home or self-care (01) ==
LOC: JONCCHEMO 07:06 → J7W 11:27 → JONCCHEMO 16:19
PROVIDERS: ATTEND Internal Medicine Hematology & Oncology
DX: Z51.11 Encounter for antineoplastic chemotherapy (principal); C34.11 Malignant neoplasm of upper lobe, right bronchus or lung
CPT/HCPCS: 36415; 80048; 80076; 83735; 85025; 96361; 96367; 96375; 96413; J1100; J7030; J9264

== ENCOUNTER 2019-03-10 17:51 | Inpatient (IN) | payer OTHER ==
--- NOTE | 2019-03-10 18:00 | PDOC ---
Rapid Medical Evaluation Time Seen by Provider: 03/10/19 17:57 Medical Evaluation: Allergies Allergy/AdvReac Type Severity Reaction Status Date / Time No Known Allergies Allergy Verified 12/29/18 13:43 03/10/19 17:58 CC: weakness. Lung CA- last chemo 03/05 PE: AF. HR-99. No focal findings Orders: sepsis w/u Patient will proceed to ED for continued evaluation. 03/10/19 17:59 Discharge Disposition - Diagnosis Weakness - Referrals Referrals: Godfrey Dumont MD [Primary Care Provider] - - Patient Instructions - Post Discharge Activity
[2019-03-10] MEDS ORDERED: SODIUM CHLORIDE 0.9% 1000 ML INFUS.BAG IV ONE (20:04)
[2019-03-10] MEDS ORDERED: ONDANSETRON 4 MG/2 ML VIAL IVPUSH ONE (20:04)
[2019-03-10] MEDS ORDERED: ACETAMINOPHEN 1000 MG/100 ML VIAL (NON FORMULARY) IVPB ONE (20:04)
--- NOTE | 2019-03-10 21:01 | PDOC ---
Documentation entered by Tammie Freitas SCRIBE, acting as scribe for Melchor Garrison MD. Melchor Garrison MD: This documentation has been prepared by the Zena caballero Brenda, SCRIBE, under my direction and personally reviewed by me in its entirety. I confirm that the documentation accurately reflects all work, treatment, procedures, and medical decision making performed by me. History of Present Illness - General Chief Complaint: Nausea/Vomiting Stated Complaint: WEAKNESS Time Seen by Provider: 03/10/19 17:57 History Source: Patient Exam Limitations: No Limitations - History of Present Illness Initial Comments: 03/10/19 20:25 The patient is a 79 year old female, with a significant PMH of lung adenocarcinoma on Keytruda, SIADH, metastases, frequent UTIs, DM and HLD, who presents to the emergency department with 1 week of progressively worsening lower abdominal pain. As per patient she has been feeling sick for a while, however over the last week she developed severely worsening abdominal pain accompanied by nausea and NBNB vomiting upon eating. The patient also endorses foul smelling urine. The family, on the bedside also report a subjective fever over the past couple of days, and note that she started her chemotherapy on Sunday (03/05/19) for the lung CA. The patient denies chest pain, shortness of breath, headache and dizziness. Denies diarrhea and constipation. Denies dysuria, frequency, urgency and hematuria. Allergies: NKA Past surgical history: Social history: History of former smoking. Oncologist: Usha PCP: Julia Past History - Past Medical History Allergies/Adverse Reactions: Allergies Allergy/AdvReac Type Severity Reaction Status Date / Time No Known Allergies Allergy Verified 03/10/19 18:01 Home Medications: Ambulatory Orders Rosuvastatin [Crestor -] 10 mg PO DAILY 07/25/18 metFORMIN HCL [Metformin ER Osmotic] 500 mg PO BIDAC 07/25/18 Docusate Sodium [Colace -] 100 mg PO TID #90 capsule 07/31/18 Folic Acid - 1 mg PO DAILY #30 tablet 07/31/18 Sennosides [Senna -] 2 tab PO HS #60 tablet 07/31/18 Ondansetron HCl [Zofran] 8 mg PO QID PRN 01/30/19 Prochlorperazine Maleate [Compazine] 10 mg PO TID PRN 01/30/19 Ferrous Sulfate [Feosol] 325 mg PO DAILY #30 ud 02/06/19 Polyethylene Glycol 3350 [Miralax 119 gm Btl -] 17 gm PO DAILY #1 bottle Sennosides [Senna -] 2 tab PO HS #60 tablet 02/06/19 Tramadol HCl 50 mg PO Q8H PRN #15 tablet MDD 3 02/06/19 Cancer: Yes (Metastatic Lung carcinoma - on Keytruda) COPD: No Diabetes: Yes (Type II) GI Disorders: Yes (Diverticulitis w/abscess an I&D) Hypercholesterolemia: Yes Thyroid Disease: Yes - Immunization History Immunization Up to Date: No - Suicide/Smoking/Psychosocial Hx Smoking History: Never smoked Have you smoked in the past 12 months: No If you are a former smoker, when did you quit?: 3 yrs ago Hx Alcohol Use: No Drug/Substance Use Hx: No Substance Use Type: None Review of Systems - Review of Systems Able to Perform ROS?: Yes Comments:: 03/10/19 20:26 ROS: A complete review of 10 out of 10 review of systems is taken and is negative apart from what is previously mentioned below and in the HPI. *Physical Exam - Vital Signs Last Vital Signs Temp Pulse Resp BP Pulse Ox 98.4 F 99 H 14 120/45 L 100 03/10/19 17:57 03/10/19 17:57 03/10/19 17:57 03/10/19 17:57 03/10/19 17:57 - Physical Exam Comments: 03/10/19 20:26 Vitals: Triage vital signs reviewed General Appearance: No acute distress, well nourished, well developed Head: Atraumatic Neck: Supple; No nuchal rigidity Chest Wall: Nontender Cardiac: Regular rate and rhythm, no murmurs, no rubs, no gallops Lungs: Clear to auscultation bilateral, good air movement bilaterally Abdomen: (+) mild lower quadrant tenderness upon palpation. Soft, nondistended. Extremities: Full range of motion to all extremities, no cyanosis, clubbing, or edema Skin: Warm and dry, no rashes or lesions, no rash, no petechiae Neuro: AOX3; Cranial Nerves 2-12 grossly intact. Psych: Normal mood, normal affect ED Treatment Course - LABORATORY CBC & Chemistry Diagram: 03/10/19 21:30 03/10/19 21:30 Medical Decision Making - Medical Decision Making 03/11/19 00:59 79 years old on chemotherapy for metastatic lung CA with chronic abdominal discomfort nausea vomiting presents with signs and symptoms of urinary tract infection No fever no white count status post IV fluids Tylenol Zofran nominal pain has resolved urinalysis grossly positive history of ESBL the past sensitive to Zosyn we'll start patient on Zosyn and admit to contact isolation bed for further management. *DC/Admit/Observation/Transfer Diagnosis at time of Disposition: Weakness - Discharge Dispostion Condition at time of disposition: Fair Decision to Admit order: Yes - Referrals - Patient Instructions - Post Discharge Activity
[2019-03-10] MEDS ORDERED: ONDANSETRON 4 MG/2 ML VIAL ONE (21:11)
[2019-03-10] MEDS ORDERED: ACETAMINOPHEN INJECTION 100 ML IVPB ONE (21:11)
[2019-03-10 21:46] LABS: BASO % 0.4 % (0-2.0); EOS % 3.4 % (0-4.5); HEMATOCRIT 28.1 % (32.4-45.2); HEMOGLOBIN 9.2 GM/dL (10.7-15.3); LYMPH % 5.3 % (8-40); MCH 29.1 pg (25.7-33.7); MCHC 32.8 g/dl (32.0-36.0); MEAN CELL VOLUME 88.7 fl (80-96); MEAN PLT VOLUME 6.9 fl (7.5-11.1); MONO % 7.1 % (3.8-10.2); NEUT % 83.8 % (42.8-82.8); PLATELET COUNT 419 K/MM3 (134-434); RBC 3.17 M/mm3 (3.60-5.2); RDW 14.8 % (11.6-15.6); WHITE BLOOD COUNT 9.2 K/mm3 (4.0-10.0)
[2019-03-10 22:08] LABS: PH,URINE 7.5 (5.0-8.0); URINE APPEARANCE CLOUDY; URINE BILIRUBIN NEGATIVE (NEGATIVE); URINE COLOR YELLOW; URINE GLUCOSE (UA) NEGATIVE (NEGATIVE); URINE KETONE NEGATIVE (NEGATIVE); URINE LEUK ESTERASE 3+ (NEGATIVE); URINE NITRITE POSITIVE (NEGATIVE); URINE PROTEIN 1+ (NEGATIVE); URINE UROBILINOGEN 0.2 mg/dL (0.2-1.0)
[2019-03-10 22:10] LABS: INR 1.22 (0.83-1.09); PROTHROMBIN TIME (PATIENT) 14.4 SEC (9.7-13.0)
[2019-03-10 22:29] LABS: ALBUMIN 2.3 g/dl (3.4-5.0); ALK PHOS 111 U/L (45-117); ANION GAP 9 MMOL/L (8-16); BILIRUBIN,TOTAL 0.7 mg/dL (0.2-1); BLOOD UREA NITROGEN 9.7 mg/dL (7-18); CALCIUM 8.3 mg/dL (8.5-10.1); CHLORIDE 92 mmol/L (98-107); CO2 29 mmol/L (21-32); CREATININE 0.5 mg/dL (0.55-1.3); GLUCOSE,RANDOM 108 mg/dL (74-106); POTASSIUM 3.6 mmol/L (3.5-5.1); SGOT/AST 21 U/L (15-37); SGPT/ALT 11 U/L (13-61); SODIUM 129 mmol/L (136-145); TOT PROT 6.7 g/dl (6.4-8.2)
[2019-03-10 23:34] LABS: EPI CELLS 0.6 /HPF (0-5/HPF); HYALINE CASTS 7.51 /lpf (0-8); URINE BACTERIA 3139.8 /hpf (NEGATIVE); URINE RBC 2.4 /hpf (0-4)
[2019-03-10] MEDS ORDERED: PIPERACILLIN/TAZOB 3.375 GM 3.375 GM in DEXTROSE 5%-WATER - 50 ML IVPB ONE (23:57)
[2019-03-11] MEDS ORDERED: PIPERACILLIN/TAZOB 3.375 GM 3.375 GM/50 ML BAG IVPB ONE ×2 (00:07→10:22)
[2019-03-11] MEDS ORDERED: ONDANSETRON 4 MG/2 ML VIAL IVPUSH PRN (00:30)
--- NOTE | 2019-03-11 00:56 | HP ---
Admitting History and Physical - Primary Care Physician PCP: Godfrey Dumont I - Admission Chief Complaint: Dysuri, Foul Smelling Urine, Chronic Abdominal Pain, Nausea and Vomiting History of Present Illness: This is a 79 y/o woman with a PMHx of Metastatic Adenocarcinoma Lung (on Chemo- ? Keytruda, 03/05/19), Bony Metastases s/p RT, SIADH, DM, HLD, Frequent UTIs. Who presents to the ED with her family for foul smelling urine, dysuria, subjective fever x several days, generalized abdominal pain x 1 week. Patient is Brazilian speaking, Ridley line used # [id number], Sherry. The patient reports supra pubic pain with burning on urination. Patient reports having chronic abdominal pain which she takes morphine for, but reports little relief of pain today. Patient denies cough, dizziness, RIOS, SOB, CP, melena, hematochezia. History Source: Patient Limitations to Obtaining History: Language Barrier (Brazilian) - Past Medical History Cardiovascular: Yes: Hyperlipdemia Pulmonary: Yes: Cancer (Metastatic) Renal/: Yes: UTI Heme/Onc: Yes: Cancer Musculoskeletal: Yes: Other (Bony Metastases (s/p RT)) Endocrine: Yes: Diabetes Mellitus, SIADH - Smoking History Smoking history: Never smoked Have you smoked in the past 12 months: No If you are a former smoker, when did you quit?: 3 yrs ago - Alcohol/Substance Use Hx Alcohol Use: No Home Medications - Allergies Allergies/Adverse Reactions: Allergies Allergy/AdvReac Type Severity Reaction Status Date / Time No Known Allergies Allergy Verified 03/10/19 18:01 - Home Medications Home Medications: Ambulatory Orders Rosuvastatin [Crestor -] 10 mg PO DAILY 07/25/18 metFORMIN HCL [Metformin ER Osmotic] 500 mg PO BIDAC 07/25/18 Docusate Sodium [Colace -] 100 mg PO TID #90 capsule 07/31/18 Folic Acid - 1 mg PO DAILY #30 tablet 07/31/18 Sennosides [Senna -] 2 tab PO HS #60 tablet 07/31/18 Ondansetron HCl [Zofran] 8 mg PO QID PRN 01/30/19 Prochlorperazine Maleate [Compazine] 10 mg PO TID PRN 01/30/19 Ferrous Sulfate [Feosol] 325 mg PO DAILY #30 ud 02/06/19 Polyethylene Glycol 3350 [Miralax 119 gm Btl -] 17 gm PO DAILY #1 bottle Sennosides [Senna -] 2 tab PO HS #60 tablet 02/06/19 Tramadol HCl 50 mg PO Q8H PRN #15 tablet MDD 3 02/06/19 Family Disease History - Family Disease History Family Disease History: Diabetes: Mother (), Other: Father (- old age), Sister (alive and well), Son (alive and well) Physical Examination Vital Signs: Vital Signs Temperature 98.4 F 03/10/19 17:57 Pulse Rate 99 H 03/10/19 17:57 Respiratory Rate 14 03/10/19 17:57 Blood Pressure 120/45 L 03/10/19 17:57 O2 Sat by Pulse Oximetry (%) 100 03/10/19 17:57 Constitutional: Yes: No Distress, Calm, Thin Eyes: Yes: WNL, Conjunctiva Clear, EOM Intact, PERRL HENT: Yes: WNL, Atraumatic, Normocephalic Neck: Yes: WNL, Supple, Trachea Midline Cardiovascular: Yes: Regular Rate and Rhythm Respiratory: Yes: WNL, Regular, CTA Bilaterally Gastrointestinal: Yes: Soft, Hypoactive Bowel Sounds, Palpable Mass (LMQ-LLQ), Tenderness Renal/: No: CVA Tenderness - Left, CVA Tenderness - Right, Vaginal Discharge Breast(s): Yes: WNL Musculoskeletal: Yes: WNL Extremities: Yes: WNL Edema: No Peripheral Pulses WNL: Yes Neurological: Yes: WNL, Alert, Oriented, Cran Nerves II-XII Intact ...Motor Strength: WNL Psychiatric: Yes: WNL, Alert, Oriented Labs: CBC, BMP 03/10/19 21:30 03/10/19 21:30 Laboratory Results - last 24 hr 03/10/19 03/10/19 03/10/19 21:30 21:30 21:30 WBC 9.2 RBC 3.17 L Hgb 9.2 L Hct 28.1 L MCV 88.7 MCH 29.1 MCHC 32.8 RDW 14.8 Plt Count 419 MPV 6.9 L D Absolute Neuts (auto) 7.7 Neutrophils % 83.8 H Lymphocytes % 5.3 L Monocytes % 7.1 Eosinophils % 3.4 Basophils % 0.4 Nucleated RBC % 0 PT with INR INR PTT (Actin FS) 31.3 Sodium 129 L Potassium 3.6 Chloride 92 L Carbon Dioxide 29 Anion Gap 9 BUN 9.7 Creatinine 0.5 L Est GFR (CKD-EPI)AfAm 108.20 Est GFR (CKD-EPI)NonAf 93.36 Random Glucose 108 H Lactic Acid Calcium 8.3 L Total Bilirubin 0.7 AST 21 ALT 11 L Alkaline Phosphatase 111 Troponin I < 0.02 Total Protein 6.7 Albumin 2.3 L Urine Color Urine Appearance Urine pH Ur Specific [place] Urine Protein Urine Glucose (UA) Urine Ketones Urine Blood Urine Nitrite Urine Bilirubin Urine Urobilinogen Ur Leukocyte Esterase Urine WBC (Auto) Urine RBC (Auto) Urine Casts (Auto) U Epithel Cells (Auto) Urine Bacteria (Auto) 03/10/19 03/10/19 03/10/19 21:30 21:30 21:49 WBC RBC Hgb Hct MCV MCH MCHC RDW Plt Count MPV Absolute Neuts (auto) Neutrophils % Lymphocytes % Monocytes % Eosinophils % Basophils % Nucleated RBC % PT with INR 14.40 H INR 1.22 H PTT (Actin FS) Sodium Potassium Chloride Carbon Dioxide Anion Gap BUN Creatinine Est GFR (CKD-EPI)AfAm Est GFR (CKD-EPI)NonAf Random Glucose Lactic Acid 0.7 Calcium Total Bilirubin AST ALT Alkaline Phosphatase Troponin I Total Protein Albumin Urine Color Yellow Urine Appearance Cloudy Urine pH 7.5 Ur Specific [place] 1.007 L Urine Protein 1+ H Urine Glucose (UA) Negative Urine Ketones Negative Urine Blood 1+ H Urine Nitrite Positive H Urine Bilirubin Negative Urine Urobilinogen 0.2 Ur Leukocyte Esterase 3+ H Urine WBC (Auto) 97.0 Urine RBC (Auto) 2.4 Urine Casts (Auto) 7.51 U Epithel Cells (Auto) 0.6 Urine Bacteria (Auto) 3139.8 Intake & Output 03/08/19 03/09/19 03/10/19 03/11/19 23:59 23:59 23:59 23:59 Weight 50.802 kg Current Medications Generic Name Dose Route Start Last Admin Trade Name Freq PRN Reason Stop Dose Admin Piperacillin Sod/Tazobactam 50 mls @ 100 mls/hr 03/11/19 10:00 Sod 3.375 gm/ Dextrose IVPB Q8H-IV LYNN Protocol Ondansetron HCl 4 mg 03/11/19 00:30 Zofran Injection IVPUSH Q6H PRN NAUSEA AND/OR VOMITING Imaging - Results Chest X-ray: Image Reviewed EKG: Image Reviewed Problem List - Problems (1) UTI (urinary tract infection) Code(s): N39.0 - URINARY TRACT INFECTION, SITE NOT SPECIFIED Qualifiers: Urinary tract infection type: acute cystitis Hematuria presence: without hematuria Qualified Code(s): N30.00 - Acute cystitis without hematuria (2) Suprapubic pain Code(s): R10.2 - PELVIC AND PERINEAL PAIN (3) Abdominal pain Code(s): R10.9 - UNSPECIFIED ABDOMINAL PAIN Qualifiers: Abdominal location: unspecified location Qualified Code(s): R10.9 - Unspecified abdominal pain (4) Diabetes Code(s): E11.9 - TYPE 2 DIABETES MELLITUS WITHOUT COMPLICATIONS Qualifiers: Diabetes mellitus type: type 2 (5) HLD (hyperlipidemia) Code(s): E78.5 - HYPERLIPIDEMIA, UNSPECIFIED (6) History of ESBL E. coli infection Code(s): Z86.19 - PERSONAL HISTORY OF OTHER INFECTIOUS AND PARASITIC DISEASES (7) Metastatic lung cancer (metastasis from lung to other site) Code(s): C34.90 - MALIGNANT NEOPLASM OF UNSP PART OF UNSP BRONCHUS OR LUNG Qualifiers: Laterality: left Qualified Code(s): C34.92 - Malignant neoplasm of unspecified part of left bronchus or lung Assessment/Plan This is a 79 y/o woman with a PMHx of Metastatic Adenocarcinoma Lung (on Keytruda), Bony Metastases (s/p RT), SIADH, DM, HLD, Frequent UTIs (ESBL). Admitted for Complicated UTI, Hyponatremia, Intractable Abdominal Pain for further evaluation of their emergent condition. Plan: 1. Complicated UTI - hx ESBL - subjective fevers at home per patient's family - UA- +3 leukocyte esterase,+1 blood, + nitrate, 97 WBC, 3139 bacteria - Urine Culture pending + Neutrophilia, no leukocytosis likely due to immunocompromise Metastatic Lung Ca on chemotherapy - Lactic Acid- nl - Zosyn given in ED, will continue - Appreciate ID consult - Monitor CBC, BMP - Monitor vitals 2. Hyponatremia - hx SIADH - Likely acute on chronic - Na 129 - Na Deficit - Consider Nephrology consult if Na trends lower - Monitor BMP - Seizure Precautions - Fall Precautions 3. Intractable Abdominal Pain - hx LLQ mass - Likely due to metastases from Lung Ca - Pain Control - Monitor CBC, BMP 4. Lung Ca - s/p Chemo (Keytruda, 03/05/19) - Appreciate Oncology consult - Continue to monitor and treat with interventions, accordingly - O2 - Monitor vitals 5. Diabetes Mellitus - stable - Monitor BGMs - ISS when tolerated Diet - Monitor BMP 6. HLD - stable - Continue home med FEN - Replete lytes prn - Low Na, Diabetic Diet as tolerated DVT ppx - OOB - SCDs - Lovenox Code Status: Dispo: Requires Inpatient Care Visit type - Emergency Visit Emergency Visit: Yes ED Registration Date: 03/10/19 Care time: The patient presented to the Emergency Department on the above date and was hospitalized for further evaluation of their emergent condition. - New Patient This patient is new to me today: Yes Date on this admission: 03/11/19 - Critical Care Critical Care patient: No
[2019-03-11] MEDS ORDERED: PHENAZOPYRIDINE HCL 100 MG TABLET (FP) PO ONE (02:08)
[2019-03-11 07:29] LABS: VENOUS PC02 47.6 mmHg (41-51)
[2019-03-11 07:30] LABS: VENOUS PO2 < 49 mmHg (30-40)
[2019-03-11] MEDS ORDERED: PIPERACILLIN/TAZOB 3.375 GM 3.375 GM in DEXTROSE 5%-WATER - 50 ML IVPB SCH (10:00)
--- NOTE | 2019-03-11 13:41 | PN ---
Progress Note, Physician Chief Complaint: Complicated UTI Metastatic Adenocarcinoma Lung Bone Metastatis History of Present Illness: Previous notes and events reviewed awake and alert NAD complain of suprapubic pain states noticing blood streaks in urine complain dysuria UC pending - Current Medication List Current Medications: Active Medications Piperacillin Sod/Tazobactam (Sod 3.375 gm/ Dextrose) 50 mls @ 100 mls/hr IVPB Q8H-IV LYNN; Protocol Stop: 03/11/19 18:29 Last Admin: 03/11/19 10:26 Dose: 100 mls/hr Piperacillin Sod/Tazobactam (Sod 3.375 gm/ Dextrose) 50 mls @ 100 mls/hr IVPB Q8H-IV LYNN; Protocol Ondansetron HCl (Zofran Injection) 4 mg IVPUSH Q6H PRN PRN Reason: NAUSEA AND/OR VOMITING - Objective Vital Signs: Vital Signs Temperature 98.4 F 03/11/19 12:45 Pulse Rate 70 03/11/19 12:45 Respiratory Rate 18 03/11/19 12:45 Blood Pressure 105/74 03/11/19 12:45 O2 Sat by Pulse Oximetry (%) 98 03/11/19 12:45 Constitutional: Yes: No Distress, Calm Eyes: Yes: Conjunctiva Clear HENT: Yes: Atraumatic Cardiovascular: Yes: Regular Rate and Rhythm Respiratory: Yes: Regular, CTA Bilaterally Gastrointestinal: Yes: Normal Bowel Sounds, Soft, Tenderness (suprapubic) Musculoskeletal: Yes: Muscle Weakness Extremities: Yes: WNL Edema: No Neurological: Yes: Alert, Pre-Existing Deficit Psychiatric: Yes: Alert Labs: CBC, BMP 03/10/19 21:30 03/10/19 21:30 INR, PTT INR 1.22 (0.83-1.09) H 03/10/19 21:30 Problem List - Problems (1) Diabetes Assessment/Plan: -[facility] ACHS -ISS -diabetic diet Code(s): E11.9 - TYPE 2 DIABETES MELLITUS WITHOUT COMPLICATIONS Qualifiers: Diabetes mellitus type: type 2 (2) HLD (hyperlipidemia) Code(s): E78.5 - HYPERLIPIDEMIA, UNSPECIFIED (3) History of ESBL E. coli infection Assessment/Plan: -contact precaution Code(s): Z86.19 - PERSONAL HISTORY OF OTHER INFECTIOUS AND PARASITIC DISEASES (4) Metastatic adenocarcinoma Assessment/Plan: -Oncology on board Code(s): C79.9 - SECONDARY MALIGNANT NEOPLASM OF UNSPECIFIED SITE (5) UTI (urinary tract infection) Assessment/Plan: -ID consult -no leukocytosis -afebrile -Zosyn -UA shows 3+ leuks, positive nitrite, blood 1+ -UC pending -pyridium x 2 days--renal function reviewed prior Code(s): N39.0 - URINARY TRACT INFECTION, SITE NOT SPECIFIED Qualifiers: Urinary tract infection type: acute cystitis Hematuria presence: without hematuria Qualified Code(s): N30.00 - Acute cystitis without hematuria Assessment/Plan see problem list dvt ppx
[2019-03-11 14:06] VITALS: BMI 24.0
--- NOTE | 2019-03-11 16:12 | EKG ---
Test Reason : Blood Pressure : / mmHG Vent. Rate : 092 BPM Atrial Rate : 092 BPM P-R Int : 140 ms QRS Dur : 072 ms QT Int : 346 ms P-R-T Axes : 040 029 047 degrees QTc Int : 427 ms NORMAL SINUS RHYTHM NORMAL ECG WHEN COMPARED WITH ECG OF 30-JAN-2019 12:42, NO SIGNIFICANT CHANGE WAS FOUND Confirmed by MD SUKHJINDER, SAKINA ([id number]) on 03/11/2019 4:12:06 PM Referred By: Confirmed By:SAKINA SLAUGHTER MD
[2019-03-11] MEDS ORDERED: PIPERACILLIN/TAZOBACTAM 3.375 GM VIAL IVPB ONE (16:22)
[2019-03-11] MEDS ORDERED: DEXTROSE 5%-WATER - 50 ML IVPB ONE (16:23)
[2019-03-11] MEDS: INSULIN SLIDING SCALE (NOVOLOG) 1 VIAL SQ SCH ×2 (16:38→21:24)
--- NOTE | 2019-03-11 16:54 | PN ---
Progress Note (short form) - Note Progress Note: ID consult dictated 79 yo female with metastatic adenocarcinoma on treatment- admitted in January for syncope, fever- found to have UTI treated with ecoli esbl UTI with ertapenem for 7 days reports symptoms of dysuria and fever and frequency for one week now, urine is foul smelling daily fever for one week recently completed radiation to the abdomen on 02/28 suspected UTI resume ertapenem f/u cultures would get bladder and renal sonogram to r/o retention or any other anatomic issues contact isolation metastatic adenocarcinoma s/p RT on chemo per Dr Stallings not neutropenic Problem List - Problems (1) Abdominal pain Code(s): R10.9 - UNSPECIFIED ABDOMINAL PAIN Qualifiers: Abdominal location: unspecified location Qualified Code(s): R10.9 - Unspecified abdominal pain (2) UTI (urinary tract infection) Code(s): N39.0 - URINARY TRACT INFECTION, SITE NOT SPECIFIED Qualifiers: Urinary tract infection type: acute cystitis Hematuria presence: without hematuria Qualified Code(s): N30.00 - Acute cystitis without hematuria (3) History of ESBL E. coli infection Code(s): Z86.19 - PERSONAL HISTORY OF OTHER INFECTIOUS AND PARASITIC DISEASES (4) Metastatic adenocarcinoma Code(s): C79.9 - SECONDARY MALIGNANT NEOPLASM OF UNSPECIFIED SITE
[2019-03-11] MEDS ORDERED: ERTAPENEM SODIUM 1 GM in SODIUM CHLORIDE 50 ML IVPB SCH (17:00)
[2019-03-11] MEDS: PHENAZOPYRIDINE HCL 100 MG TABLET (FP) PO SCH (17:29)
[2019-03-11] MEDS: ERTAPENEM SODIUM 1 GM in SODIUM CHLORIDE 50 ML IVPB SCH (17:29)
[2019-03-11] MEDS: traMADol HCL 50 MG TABLET PO PRN (17:30)
--- NOTE | 2019-03-11 18:23 | PN ---
Progress Note (short form) - Note Progress Note: Patient seen and examined 79 year old with lung ca with progession on chemotherapy with carboplatinum, alimta, and keytruda. Currently on abraxane. Enters with ESBL - UTI Anemic with Hct- 28% Na+- 129 Last Vital Signs Temp Pulse Resp BP Pulse Ox 97.6 F 84 18 139/64 98 03/11/19 13:54 03/11/19 13:54 03/11/19 13:54 03/11/19 13:54 03/11/19 13:54 HEENT: ODETTE, EOM Intact Oropharynx: No thrush, No mucositis Neck: Supple Nodes: Without adenopathy Breasts: Without masses Cor: RSR, No murmurs, No gallops Lungs: Decreased breath sounds RLL Abd: Soft, Normal bowel sounds, No organomegaly Ext:No significant edema Skin: No rashes, Integument intact CBC, BMP 03/10/19 21:30 03/10/19 21:30 Abnormal Lab Results 03/10/19 03/10/19 03/10/19 21:30 21:30 21:30 RBC 3.17 L Hgb 9.2 L Hct 28.1 L MPV 6.9 L D Neutrophils % 83.8 H Lymphocytes % 5.3 L PT with INR 14.40 H INR 1.22 H POC VBG pO2 VBG O2 Sat (Ariana) VBG Base Excess Sodium 129 L Chloride 92 L Creatinine 0.5 L Random Glucose 108 H Calcium 8.3 L ALT 11 L Albumin 2.3 L Ur Specific [place] Urine Protein Urine Blood Urine Nitrite Ur Leukocyte Esterase 03/10/19 03/11/19 21:49 06:50 RBC Hgb Hct MPV Neutrophils % Lymphocytes % PT with INR INR POC VBG pO2 < 49 H VBG O2 Sat (Ariana) 20.6 L VBG Base Excess 3.5 H Sodium Chloride Creatinine Random Glucose Calcium ALT Albumin Ur Specific [place] 1.007 L Urine Protein 1+ H Urine Blood 1+ H Urine Nitrite Positive H Ur Leukocyte Esterase 3+ H IMPRESSION: Lung ca / abraxance per Dr. Kerr ESBL-UTI- antibiotics per ID Anemia- chroic disease Hyponatremia - ? SIADH Plan: Ab per ID Pain management Serum /Urine osm
[2019-03-11] MEDS ORDERED: FENTANYL PATCH WASTE MC PRN (18:29)
[2019-03-11] MEDS ORDERED: DOCUSATE SODIUM 100 MG CAPSULE (FP) PO PRN (18:31)
[2019-03-11] MEDS: morphine SULFATE IMMEDIATE RELEASE 30 MG TAB PO PRN (18:45)
[2019-03-11] MEDS: fentaNYL 25mcg/hr PATCH.TD72 TD SCH (18:45)
--- NOTE | 2019-03-11 21:02 | CONS ---
DATE OF CONSULTATION: 03/11/2019 This 79-year-old female has adenocarcinoma of the lung. She has been treated in the past with multiple chemotherapy regimens, including carboplatin, Alimta, Keytruda with progression. She has had multiple radiation cook, including radiation to her left hemipelvis. She has been previously hospitalized with urinary tract infection of ESBL, being treated with ertapenem. She currently enters in with pelvic pain and, once again, urinary tract infection. PAST SURGICAL HISTORY: Hysterectomy. Patient is a former smoker. No drinking, no illicit drugs. CURRENT PHYSICAL EXAMINATION: Vital Signs: Blood pressure of 139/64, temperature 97.6, weight of 111, and respiratory rate 18. HEENT: PERRLA. EOMs intact. Oropharynx unremarkable. Lungs: Relatively clear. Cardiac: RSR. Breasts: No masses. Abdomen: Soft. Extremities: Left hip mass. No significant lower extremity edema. WBCs 9.2, hematocrit 28.1, platelets 419 with 84 polys, 5 lymphs. INR 1.32. Her pH is 7.4, pCO2 is 47, pO2 is not measured. Chemistries: Sodium 129, potassium 3.6, chloride 92, CO2 of 29, BUN 9.7, creatinine 0.5, EGFR 93, glucose 108, calcium 8.3. AST 21, ALT 11, alkaline phosphatase 111, protein 6.7, albumin 2.3. UA with 1+ protein, 1+ blood, 3+ leukocyte esterase, positive bacteria. Chest x-ray with no acute infiltrate. IMPRESSION: 1. Lung carcinoma, currently on Abraxane therapy with progression on Keytruda, carboplatin, and Alimta. 2. Extended-spectrum beta-lactamase urinary tract infection. Antibiotics per ID. 3. Anemia. 4. Pain management. To begin fentanyl and morphine. BRANDIE ROBERSON M.D. ROSENDA/[id number]
[2019-03-11] MEDS: ROSUVASTATIN CA 5 MG TABLET (FP) PO SCH (21:23)
--- NOTE | 2019-03-11 21:40 | CONS ---
DATE OF CONSULTATION: DATE OF DICTATION: 03/11/2019 REQUESTED BY: Godfrey Dumont MD This is a 79-year-old woman with known metastatic adenocarcinoma, on treatment, admitted in January for syncope and fever. She was found to have an Escherichia coli ESBL UTI, treated with ertapenem for 7 days. History was obtained with and looking at the chart. She reports symptoms of dysuria and fever and frequency for 1 week now with foul-smelling urine. This all occurred after she was last seen on March [address] Kerr, at which time she received chemotherapy. She reports she has had daily fever at 5 p.m. She reports that she, again, has some pelvic discomfort. She also recently completed radiation to the abdomen on February 28 for a subcutaneous mass. PAST SURGICAL HISTORY: Hysterectomy. PAST MEDICAL HISTORY: She has metastatic lung cancer. Also includes history of hyperlipidemia, prior Escherichia coli ESBL UTI, and diabetes. FAMILY HISTORY: Notable for diabetes in her mother. Her father of old age. She has a sister and son who are alive and well. SOCIAL HISTORY: She is a former smoker; she quit in 2013. No history of any substance use. She was diagnosed in July 2018 with adenocarcinoma of the lung that has been metastatic. She has been on multiple regimens, including carboplatin, Keytruda and she is currently now on Abraxane, which was started on March 05. She has no known allergies. MEDICATIONS AT HOME: Metformin, tramadol, Senna, Crestor, compazine, MiraLAX, Zofran, morphine, folic acid, Feosol, fentanyl, and Colace. REVIEW OF SYSTEMS: She denies cough, dizziness, headache, shortness of breath, chest pain, or diarrhea. PHYSICAL EXAMINATION: Vital Signs: She is afebrile. Temperature is 98.4, pulse of 98, blood pressure 147/68, respiratory rate is 18. She is saturating 98% on room air. HEENT: She is normocephalic. Her eyes are anicteric. Neck: Supple. Lungs: Clear to auscultation. Heart: Regular rate and rhythm. Abdomen: Soft. She complains of suprapubic discomfort. Bladder is not palpable. She has a left-sided, small, subcutaneous mass. Extremities: Without edema. White count is 9.2, hemoglobin 9.2, platelets of 419. BUN is 9.7, creatinine is 0.5 with normal LFTs. Urinalysis is notable for 3+ leukocytes with 97 white cells. Urine and blood cultures are pending. SUMMARY: This is a 79-year-old woman with metastatic lung cancer, on chemotherapy. She is status post radiation therapy to her abdomen. She is not neutropenic. I suspect she has a recurrent extended-spectrum beta-lactamase Escherichia coli urinary tract infection. Would resume ertapenem, followup cultures. Would get bladder and renal sonogram to rule out retention or any other anatomic issues. Further recommendations to follow. She needs to be in contact isolation. ERNIE DE JESUS M.D. [id number]
[2019-03-12] MEDS ORDERED: PIPERACILLIN/TAZOB 3.375 GM 3.375 GM in DEXTROSE 5%-WATER - 50 ML IVPB SCH (02:00)
[2019-03-12] MEDS: INSULIN SLIDING SCALE (NOVOLOG) 1 VIAL SQ SCH ×4 (06:01→21:26)
[2019-03-12 07:48] LABS: BASO % 0.2 % (0-2.0); EOS % 3.5 % (0-4.5); HEMATOCRIT 26.6 % (32.4-45.2); HEMOGLOBIN 8.8 GM/dL (10.7-15.3); LYMPH % 6.5 % (8-40); MCH 28.9 pg (25.7-33.7); MCHC 32.9 g/dl (32.0-36.0); MEAN CELL VOLUME 87.9 fl (80-96); MEAN PLT VOLUME 6.6 fl (7.5-11.1); MONO % 8.8 % (3.8-10.2); PLATELET COUNT 421 K/MM3 (134-434); RBC 3.03 M/mm3 (3.60-5.2); RDW 14.9 % (11.6-15.6); WHITE BLOOD COUNT 7.2 K/mm3 (4.0-10.0)
[2019-03-12 08:38] LABS: BLOOD UREA NITROGEN 4.6 mg/dL (7-18); CALCIUM 7.8 mg/dL (8.5-10.1); CREATININE 0.5 mg/dL (0.55-1.3); POTASSIUM 3.3 mmol/L (3.5-5.1)
[2019-03-12] MEDS ORDERED: POTASSIUM CHLORIDE TABS 20 MEQ TABLET.ER (FP) PO ONE (09:31)
--- NOTE | 2019-03-12 09:34 | PN ---
Progress Note, Physician Chief Complaint: AWAKE ALERT DAUGHTER BEDSIDE DENIES CP/SOB +BM, POOR APPETITE - Current Medication List Current Medications: Active Medications Docusate Sodium (Colace -) 100 mg PO Q8H PRN PRN Reason: CONSTIPATION Fentanyl (Duragesic 25mcg Patch -) 1 patch TD Q72H [facility] Stop: 03/18/19 18:30 Last Admin: 03/11/19 18:45 Dose: 1 patch Folic Acid (Folic Acid -) 1 mg PO DAILY [facility] Ertapenem 1 gm/ Sodium (Chloride) 50 mls @ 100 mls/hr IVPB Q24H [facility] Last Admin: 03/11/19 17:29 Dose: 100 mls/hr Insulin Aspart (Novolog Vial Sliding Scale -) 1 vial SQ ACHS [facility]; Protocol Last Admin: 03/12/19 06:01 Dose: Not Given Miscellaneous (Duragesic Patch Waste) 1 each MC PRN PRN PRN Reason: PAIN Morphine Sulfate (Msir -) 15 mg PO Q6H PRN PRN Reason: PAIN LEVEL 4 - 6 Last Admin: 03/11/19 18:45 Dose: 15 mg Ondansetron HCl (Zofran Injection) 4 mg IVPUSH Q6H PRN PRN Reason: NAUSEA AND/OR VOMITING Phenazopyridine HCl (Pyridium -) 100 mg PO PC [facility] Stop: 03/13/19 18:29 Last Admin: 03/11/19 17:29 Dose: 100 mg Polyethylene Glycol (Miralax (For Daily Use) -) 17 gm PO DAILY [facility] Potassium Chloride (K-Dur -) 20 meq PO ONCE ONE Stop: 03/12/19 09:32 Rosuvastatin Calcium (Crestor -) 5 mg PO [facility] Last Admin: 03/11/19 21:23 Dose: 5 mg Tramadol HCl (Ultram -) 50 mg PO Q8H PRN PRN Reason: PAIN Last Admin: 03/11/19 17:30 Dose: 50 mg - Objective Vital Signs: Vital Signs Temperature 97.5 F L 03/12/19 05:59 Pulse Rate 93 H 03/12/19 05:59 Respiratory Rate 18 03/12/19 05:59 Blood Pressure 135/73 03/12/19 05:59 O2 Sat by Pulse Oximetry (%) 98 03/11/19 21:00 Constitutional: Yes: No Distress Cardiovascular: Yes: Regular Rate and Rhythm Respiratory: Yes: WNL Gastrointestinal: Yes: Normal Bowel Sounds, Soft Genitourinary: Yes: WNL Musculoskeletal: Yes: Muscle Weakness Edema: No Integumentary: Yes: WNL Wound/Incision: Yes: Clean/Dry Neurological: Yes: WNL ...Motor Strength: WNL Psychiatric: Yes: WNL Labs: CBC, BMP 03/12/19 06:30 03/12/19 06:30 INR, PTT INR 1.22 (0.83-1.09) H 03/10/19 21:30 Problem List - Problems (1) Weakness Code(s): R53.1 - WEAKNESS (2) Abdominal fluid collection Code(s): R18.8 - OTHER ASCITES (3) Anemia Code(s): D64.9 - ANEMIA, UNSPECIFIED (4) Diabetes Code(s): E11.9 - TYPE 2 DIABETES MELLITUS WITHOUT COMPLICATIONS Qualifiers: Diabetes mellitus type: type 2 (5) History of ESBL E. coli infection Code(s): Z86.19 - PERSONAL HISTORY OF OTHER INFECTIOUS AND PARASITIC DISEASES (6) Hypokalemia Code(s): E87.6 - HYPOKALEMIA (7) Metastatic adenocarcinoma Code(s): C79.9 - SECONDARY MALIGNANT NEOPLASM OF UNSPECIFIED SITE (8) Metastatic lung cancer (metastasis from lung to other site) Code(s): C34.90 - MALIGNANT NEOPLASM OF UNSP PART OF UNSP BRONCHUS OR LUNG Qualifiers: Laterality: left Qualified Code(s): C34.92 - Malignant neoplasm of unspecified part of left bronchus or lung (9) UTI (urinary tract infection) Code(s): N39.0 - URINARY TRACT INFECTION, SITE NOT SPECIFIED Qualifiers: Urinary tract infection type: acute cystitis Hematuria presence: without hematuria Qualified Code(s): N30.00 - Acute cystitis without hematuria Assessment/Plan IV ABX CONTINUE AWAIT SENSITIVITY OF URINE CX OOB TO CHAIR NUTRITIONAL SUPPLEMENTS ONCOLOGY F/U REMERON 7.5MG HS FOR APPETITE STIMULANT DVT PROPHYLAXIS
[2019-03-12] MEDS: FOLIC ACID 1 MG TABLET (FP) PO SCH (09:39)
[2019-03-12] MEDS: PHENAZOPYRIDINE HCL 100 MG TABLET (FP) PO SCH ×3 (09:39→18:20)
[2019-03-12] MEDS: POLYETHYLENE GLYCOL 3350 119 GM BTL PO SCH (09:40)
--- NOTE | 2019-03-12 10:01 | PN ---
Progress Note (short form) - Note Progress Note: Patient seen and examined Feels better Last Vital Signs Temp Pulse Resp BP Pulse Ox 97.5 F L 93 H 18 135/73 98 03/12/19 05:59 03/12/19 05:59 03/12/19 05:59 03/12/19 05:59 03/11/19 21:00 Cor: RSR, No murmurs, No gallops Lungs: Clear to P&A Abd: Soft, Normal bowel sounds, No organomegaly Ext:No significant edema Labs/Meds reviewed A/P 79 y/o patient with metastatic lung cancer/ adenoca On weekly abraxane C1 W2 For week 2 today Admitted for UTI. No fevers. Blood CX negative On ertapenem For clinimix
[2019-03-12] MEDS ORDERED: DEXAMETHASONE SOD PHOSPHATE 10 MG/1 ML VIAL IVPB ONE (11:51)
[2019-03-12] MEDS ORDERED: FAMOTIDINE 20 MG/50 ML IVPB 20 MG/50 ML MG IVPB ONE (11:52)
[2019-03-12] MEDS ORDERED: SODIUM CHLORIDE IVPB ONE ×2 (12:30→15:00)
[2019-03-12] MEDS ORDERED: PACLITAXEL PROTEIN BOUND IVPB ONE (12:30)
[2019-03-12] MEDS ORDERED: DIPHENHYDRAMINE IVPB ONE (15:00)
[2019-03-12] MEDS ORDERED: DEXAMETHASONE IVPB ONE (15:00)
--- NOTE | 2019-03-12 17:14 | CONSULT ---
Consult Consult Specialty:: Nephrology Reason for Consultation:: hyponatremia - History of Present Illness Chief Complaint: abdominal pain History of Present Illness: Pt is a 79 year old female with pmhx of adenocarcinoma, siadh, dm, hld and recurrent uti who presents to the ER with lower abdominal pain. She was found to have a uti and admitted for antibiotics. I was called to evaluate her for electrolyte abnormalities. She complains of poor appetite. She says that she does not drink much water. She is on checmotherapy for lung cancer. She denies fevers or chills. - History Source History Provided By: Patient, Medical Record - Past Medical History Cardio/Vascular: Yes: Hyperlipdemia Pulmonary: Yes: Cancer (Metastatic) Renal/: Yes: UTI, Other (hyponatremia) ...: No Musculoskeletal: Yes: Other (Bony Metastases (s/p RT)) Endocrine: Yes: Diabetes Mellitus, SIADH - Alcohol/Substance Use Hx Alcohol Use: No - Smoking History Smoking history: Never smoked Have you smoked in the past 12 months: No If you are a former smoker, when did you quit?: 3 yrs ago Home Medications - Allergies Allergies/Adverse Reactions: Allergies Allergy/AdvReac Type Severity Reaction Status Date / Time No Known Allergies Allergy Verified 03/10/19 18:01 - Home Medications Home Medications: Ambulatory Orders Rosuvastatin [Crestor -] 10 mg PO DAILY 07/25/18 metFORMIN HCL [Metformin ER Osmotic] 500 mg PO BIDAC 07/25/18 Docusate Sodium [Colace -] 100 mg PO TID #90 capsule 07/31/18 Folic Acid - 1 mg PO DAILY #30 tablet 07/31/18 Sennosides [Senna -] 2 tab PO HS #60 tablet 07/31/18 Ondansetron HCl [Zofran] 8 mg PO QID PRN 01/30/19 Prochlorperazine Maleate [Compazine] 10 mg PO TID PRN 01/30/19 Ferrous Sulfate [Feosol] 325 mg PO DAILY #30 ud 02/06/19 Polyethylene Glycol 3350 [Miralax 119 gm Btl -] 17 gm PO DAILY #1 bottle Sennosides [Senna -] 2 tab PO HS #60 tablet 02/06/19 Tramadol HCl 50 mg PO Q8H PRN #15 tablet MDD 3 02/06/19 FENTANYL 25mcg PATCH [DURAGESIC 25mcg PATCH -] 25 mcg PO 03/11/19 Morphine Sulfate 15 mg PO QID 03/11/19 Family Disease History - Family Disease History Family Disease History: Diabetes: Mother (), Other: Father (- old age), Sister (alive and well), Son (alive and well) Review of Systems - Review of Systems Constitutional: reports: Malaise Eyes: reports: No Symptoms HENT: reports: No Symptoms Neck: reports: No Symptoms Cardiovascular: reports: No Symptoms Respiratory: reports: No Symptoms Gastrointestinal: reports: No Symptoms Genitourinary: reports: Dysuria Musculoskeletal: reports: No Symptoms Integumentary: reports: No Symptoms Neurological: reports: No Symptoms Endocrine: reports: No Symptoms Hematology/Lymphatic: reports: No Symptoms Psychiatric: reports: No Symptoms Physical Exam Vital Signs: Vital Signs Temperature 98.6 F 03/12/19 14:33 Pulse Rate 86 03/12/19 14:33 Respiratory Rate 18 03/12/19 14:33 Blood Pressure 125/62 03/12/19 14:33 O2 Sat by Pulse Oximetry (%) 99 03/12/19 09:00 Constitutional: Yes: Calm Eyes: Yes: Conjunctiva Clear HENT: Yes: Atraumatic Neck: Yes: Supple Cardiovascular: Yes: S1, S2 Respiratory: Yes: CTA Bilaterally Gastrointestinal: Yes: Soft Renal/: No: Bladder Distention, CVA Tenderness - Left, CVA Tenderness - Right Extremities: Yes: WNL Edema: No Neurological: Yes: Oriented Psychiatric: Yes: Oriented Labs: CBC, BMP 03/12/19 06:30 03/12/19 06:30 Laboratory Tests 07/26/18 03/10/19 03/10/19 06:30 21:30 21:30 Hgb 9.2 L Sodium 129 L Potassium Creatinine Serum Osmolality Cortisol AM Sample 16.6 Ur Specific [place] Urine Nitrite Urine Osmolality 03/10/19 03/12/19 03/12/19 21:49 06:30 06:30 Hgb 8.8 L Sodium 133 L Potassium 3.3 L Creatinine 0.5 L Serum Osmolality 267 L Cortisol AM Sample Ur Specific [place] 1.007 L Urine Nitrite Positive H Urine Osmolality 03/12/19 13:00 Hgb Sodium Potassium Creatinine Serum Osmolality Cortisol AM Sample Ur Specific [place] Urine Nitrite Urine Osmolality Pending Imaging - Results Chest X-ray: Report Reviewed Ultrasound: Report Reviewed Problem List - Problems (1) Hyponatremia Code(s): E87.1 - HYPO-OSMOLALITY AND HYPONATREMIA (2) Weakness Code(s): R53.1 - WEAKNESS (3) Hypokalemia Code(s): E87.6 - HYPOKALEMIA (4) Metastatic adenocarcinoma Code(s): C79.9 - SECONDARY MALIGNANT NEOPLASM OF UNSPECIFIED SITE Assessment/Plan Current Medications Generic Name Dose Route Start Last Admin Trade Name Freq PRN Reason Stop Dose Admin Docusate Sodium 100 mg 03/11/19 18:31 Colace - PO Q8H PRN CONSTIPATION Fentanyl 1 patch 03/11/19 18:30 03/11/19 18:45 Duragesic 25mcg Patch - TD 03/18/19 18:30 1 patch Q72H LYNN Administration Folic Acid 1 mg 03/12/19 10:00 03/12/19 09:39 Folic Acid - PO 1 mg DAILY L[facility]NN Administration Ertapenem 1 gm/ Sodium 50 mls @ 100 mls/hr 03/11/19 17:00 03/11/19 17:29 Chloride IVPB 100 mls/hr Q24H LYNN Administration Insulin Aspart 1 vial 03/11/19 16:30 03/12/19 16:44 Novolog Vial Sliding Scale - SQ Not Given ACHS LYNN Protocol Mirtazapine 7.5 mg 03/12/19 22:00 Remeron - PO HS LYNN Miscellaneous 1 each 03/11/19 18:29 Duragesic Patch Waste MC PRN PRN PAIN Morphine Sulfate 15 mg 03/11/19 18:28 03/11/19 18:45 Msir - PO 15 mg Q6H PRN Administration PAIN LEVEL 4 - 6 Ondansetron HCl 4 mg 03/11/19 00:30 Zofran Injection IVPUSH Q6H PRN NAUSEA AND/OR VOMITING Phenazopyridine HCl 100 mg 03/11/19 18:30 03/12/19 12:30 Pyridium - PO 03/13/19 18:29 100 mg PC L[facility]NN Administration Polyethylene Glycol 17 gm 03/12/19 10:00 03/12/19 09:40 Miralax (For Daily Use) - PO Not Given DAILY [facility] Rosuvastatin Calcium 5 mg 03/11/19 22:00 03/11/19 21:23 Crestor - PO 5 mg HS [facility] Administration Tramadol HCl 50 mg 03/11/19 13:44 03/11/19 17:30 Ultram - PO 50 mg Q8H PRN Administration PAIN Impression 1. hyponatremia 2. lung cancer 3. dm 4. hypokakemia 5. UTI Plan - check urine osm and urine sodium - hypo-osmolar hyponatremia - will give gentle hydration - encourage po intake - repeat labs in am - will give more potassium - check mag - cont po supplements - will follow
[2019-03-12] MEDS ORDERED: POTASSIUM CHLORIDE ORAL LIQUID 20 MEQ/15 ML PO ONE (17:16)
[2019-03-12] MEDS: SODIUM CHLORIDE 1,000 ML IV SCH (18:19)
[2019-03-12] MEDS: ERTAPENEM SODIUM 1 GM in SODIUM CHLORIDE 50 ML IVPB SCH (18:52)
[2019-03-12] MEDS: MIRTAZAPINE 15 MG TABLET (FP) PO SCH (21:27)
[2019-03-12] MEDS: ROSUVASTATIN CA 5 MG TABLET (FP) PO SCH (21:27)
[2019-03-13] MEDS: INSULIN SLIDING SCALE (NOVOLOG) 1 VIAL SQ SCH ×4 (06:09→22:23)
[2019-03-13 08:13] LABS: BLOOD UREA NITROGEN 6.7 mg/dL (7-18); CALCIUM 8.2 mg/dL (8.5-10.1); CHLORIDE 106 mmol/L (98-107); CO2 26 mmol/L (21-32); CREATININE 0.4 mg/dL (0.55-1.3); GLUCOSE,RANDOM 130 mg/dL (74-106); PHOSPHOROUS 1.8 mg/dL (2.5-4.9); POTASSIUM 4.2 mmol/L (3.5-5.1); SODIUM 138 mmol/L (136-145); TOT PROT 6.5 g/dl (6.4-8.2)
[2019-03-13 08:14] LABS: ALBUMIN 2.2 g/dl (3.4-5.0); ALK PHOS 91 U/L (45-117); BILIRUBIN,TOTAL 0.2 mg/dL (0.2-1); SGOT/AST 16 U/L (15-37); SGPT/ALT 11 U/L (13-61)
[2019-03-13] MEDS: PHENAZOPYRIDINE HCL 100 MG TABLET (FP) PO SCH ×2 (09:16→12:16)
[2019-03-13] MEDS: FOLIC ACID 1 MG TABLET (FP) PO SCH (09:17)
[2019-03-13] MEDS: POLYETHYLENE GLYCOL 3350 119 GM BTL PO SCH (09:17)
[2019-03-13] MEDS: SODIUM CHLORIDE 1,000 ML IV SCH (13:40)
[2019-03-13] MEDS ORDERED: NAPH,MB-DB/K PH,MBDB POWDER PACKET PO ONE (15:10)
--- NOTE | 2019-03-13 15:14 | PN ---
Progress Note, Physician Chief Complaint: seen and examined awake alert no distress - Current Medication List Current Medications: Active Medications Docusate Sodium (Colace -) 100 mg PO Q8H PRN PRN Reason: CONSTIPATION Fentanyl (Duragesic 25mcg Patch -) 1 patch TD Q72H [facility] Stop: 03/18/19 18:30 Last Admin: 03/11/19 18:45 Dose: 1 patch Folic Acid (Folic Acid -) 1 mg PO DAILY [facility] Last Admin: 03/13/19 09:17 Dose: 1 mg Ertapenem 1 gm/ Sodium (Chloride) 50 mls @ 100 mls/hr IVPB Q24H [facility] Last Admin: 03/12/19 18:52 Dose: 100 mls/hr Sodium Chloride (Normal Saline -) 1,000 mls @ 50 mls/hr IV ASDIR [facility] Stop: 03/13/19 17:15 Last Admin: 03/13/19 13:40 Dose: 50 mls/hr Insulin Aspart (Novolog Vial Sliding Scale -) [address] [facility]; Protocol Last Admin: 03/13/19 11:33 Dose: Not Given Mirtazapine (Remeron -) 7.5 mg PO [facility] Last Admin: 03/12/19 21:27 Dose: 7.5 mg Miscellaneous (Duragesic Patch Waste) 1 each MC PRN PRN PRN Reason: PAIN Morphine Sulfate (Msir -) 15 mg PO Q6H PRN PRN Reason: PAIN LEVEL 4 - 6 Last Admin: 03/11/19 18:45 Dose: 15 mg Ondansetron HCl (Zofran Injection) 4 mg IVPUSH Q6H PRN PRN Reason: NAUSEA AND/OR VOMITING Phenazopyridine HCl (Pyridium -) 100 mg PO [facility] Stop: 03/13/19 18:29 Last Admin: 03/13/19 12:16 Dose: 100 mg Polyethylene Glycol (Miralax (For Daily Use) -) 17 gm PO DAILY [facility] Last Admin: 03/13/19 09:17 Dose: Not Given Potassium Phos/Sodium Phos (Phos-Nak Packet -) 1 packet PO ONCE ONE Stop: 03/13/19 15:11 Rosuvastatin Calcium (Crestor -) 5 mg PO [facility] Last Admin: 03/12/19 21:27 Dose: 5 mg Tramadol HCl (Ultram -) 50 mg PO Q8H PRN PRN Reason: PAIN Last Admin: 03/11/19 17:30 Dose: 50 mg - Objective Vital Signs: Vital Signs Temperature 97.8 F 03/13/19 08:12 Pulse Rate 75 03/13/19 08:12 Respiratory Rate 18 03/13/19 09:00 Blood Pressure 114/58 L 03/13/19 08:12 O2 Sat by Pulse Oximetry (%) 97 03/13/19 09:00 Constitutional: Yes: Calm, Thin Cardiovascular: Yes: Regular Rate and Rhythm, S1, S2 Respiratory: Yes: CTA Bilaterally Gastrointestinal: Yes: Normal Bowel Sounds, Soft Labs: CBC, BMP 03/12/19 06:30 03/13/19 06:30 INR, PTT INR 1.22 (0.83-1.09) H 03/10/19 21:30 Problem List - Problems (1) Hyponatremia Assessment/Plan: ivf monitor sodium- improving Code(s): E87.1 - HYPO-OSMOLALITY AND HYPONATREMIA (2) History of ESBL E. coli infection Assessment/Plan: isolation ertrapenem Microbiology 03/10/19 21:49 Urine - Urine Clean Catch Urine Culture - Final Escherichia Coli Code(s): Z86.19 - PERSONAL HISTORY OF OTHER INFECTIOUS AND PARASITIC DISEASES (3) Metastatic lung cancer (metastasis from lung to other site) Assessment/Plan: chemo per oncology Code(s): C34.90 - MALIGNANT NEOPLASM OF UNSP PART OF UNSP BRONCHUS OR LUNG Qualifiers: Laterality: left Qualified Code(s): C34.92 - Malignant neoplasm of unspecified part of left bronchus or lung
--- NOTE | 2019-03-13 15:43 | PN ---
Progress Note (short form) - Note Progress Note: still some discomfort at the radiation site where she has a subcutaneous mass Vital Signs Period Temp Pulse Resp BP Sys/Paulson Pulse Ox Last 24 Hr 97.3 F-98.3 F 67-79 18-18 109-127/56-67 97-99 cor-rrr lungs clear abd soft,+mass left lower mass ext no edema CBC, BMP 03/12/19 06:30 03/13/19 06:30 Microbiology 03/10/19 21:49 Urine - Urine Clean Catch Urine Culture - Final Escherichia Coli 03/10/19 21:30 Blood - Peripheral Venous Blood Culture - Preliminary NO GROWTH OBTAINED AFTER 48 HOURS, INCUBATION TO CONTINUE FOR 3 DAYS. 03/10/19 21:30 Blood - Peripheral Venous Blood Culture - Preliminary NO GROWTH OBTAINED AFTER 48 HOURS, INCUBATION TO CONTINUE FOR 3 DAYS. a/p ecoli uti- can switch to po keflex 500 bid for 7 days, day #3 iv antibiotics contact isolation prior ecoli esbl metastatic adenocarcinoma s/p RT on chemo per Dr Stallings not neutropenic Problem List - Problems (1) Abdominal pain Code(s): R10.9 - UNSPECIFIED ABDOMINAL PAIN Qualifiers: Abdominal location: unspecified location Qualified Code(s): R10.9 - Unspecified abdominal pain (2) UTI (urinary tract infection) Code(s): N39.0 - URINARY TRACT INFECTION, SITE NOT SPECIFIED Qualifiers: Urinary tract infection type: acute cystitis Hematuria presence: without hematuria Qualified Code(s): N30.00 - Acute cystitis without hematuria (3) History of ESBL E. coli infection Code(s): Z86.19 - PERSONAL HISTORY OF OTHER INFECTIOUS AND PARASITIC DISEASES (4) Metastatic adenocarcinoma Code(s): C79.9 - SECONDARY MALIGNANT NEOPLASM OF UNSPECIFIED SITE
[2019-03-13] MEDS ORDERED: SODIUM CHLORIDE 1,000 ML IV SCH (15:48)
--- NOTE | 2019-03-13 15:48 | PN ---
Progress Note, Physician History of Present Illness: Pt seen and examined at bedside. She is awake and alert. She denies shortness of breath. - Current Medication List Current Medications: Active Medications Cephalexin HCl (Keflex -) 500 mg PO BID [facility] Docusate Sodium (Colace -) 100 mg PO Q8H PRN PRN Reason: CONSTIPATION Fentanyl (Duragesic 25mcg Patch -) 1 patch TD Q72H [facility] Stop: 03/18/19 18:30 Last Admin: 03/11/19 18:45 Dose: 1 patch Folic Acid (Folic Acid -) 1 mg PO DAILY [facility] Last Admin: 03/13/19 09:17 Dose: 1 mg Sodium Chloride (Normal Saline -) 1,000 mls @ 50 mls/hr IV ASDIR [facility] Stop: 03/13/19 17:15 Last Admin: 03/13/19 13:40 Dose: 50 mls/hr Insulin Aspart (Novolog Vial Sliding Scale -) 1 vial SQ [facility]; Protocol Last Admin: 03/13/19 11:33 Dose: Not Given Mirtazapine (Remeron -) 7.5 mg PO [facility] Last Admin: 03/12/19 21:27 Dose: 7.5 mg Miscellaneous (Duragesic Patch Waste) 1 each MC PRN PRN PRN Reason: PAIN Morphine Sulfate (Msir -) 15 mg PO Q6H PRN PRN Reason: PAIN LEVEL 4 - 6 Last Admin: 03/11/19 18:45 Dose: 15 mg Ondansetron HCl (Zofran Injection) 4 mg IVPUSH Q6H PRN PRN Reason: NAUSEA AND/OR VOMITING Phenazopyridine HCl (Pyridium -) 100 mg PO PC [facility] Stop: 03/13/19 18:29 Last Admin: 03/13/19 12:16 Dose: 100 mg Polyethylene Glycol (Miralax (For Daily Use) -) 17 gm PO DAILY [facility] Last Admin: 03/13/19 09:17 Dose: Not Given Rosuvastatin Calcium (Crestor -) 5 mg PO [facility] Last Admin: 03/12/19 21:27 Dose: 5 mg Tramadol HCl (Ultram -) 50 mg PO Q8H PRN PRN Reason: PAIN Last Admin: 03/11/19 17:30 Dose: 50 mg - Objective Vital Signs: Vital Signs Temperature 97.4 F L 03/13/19 15:34 Pulse Rate 78 03/13/19 15:34 Respiratory Rate 18 03/13/19 09:00 Blood Pressure 109/56 L 03/13/19 15:34 O2 Sat by Pulse Oximetry (%) 97 03/13/19 09:00 Constitutional: Yes: Calm Eyes: Yes: Conjunctiva Clear HENT: Yes: Atraumatic Neck: Yes: Supple Cardiovascular: Yes: S1, S2 Respiratory: Yes: CTA Bilaterally Gastrointestinal: Yes: Normal Bowel Sounds, Soft Genitourinary: Yes: WNL Musculoskeletal: Yes: WNL Edema: No Neurological: Yes: Oriented Psychiatric: Yes: Oriented Labs: CBC, BMP 03/12/19 06:30 03/13/19 06:30 INR, PTT INR 1.22 (0.83-1.09) H 03/10/19 21:30 Problem List - Problems (1) Hyponatremia Code(s): E87.1 - HYPO-OSMOLALITY AND HYPONATREMIA (2) Weakness Code(s): R53.1 - WEAKNESS (3) Hypokalemia Code(s): E87.6 - HYPOKALEMIA (4) Metastatic adenocarcinoma Code(s): C79.9 - SECONDARY MALIGNANT NEOPLASM OF UNSPECIFIED SITE Assessment/Plan Current Medications Generic Name Dose Route Start Last Admin Trade Name Freq PRN Reason Stop Dose Admin Cephalexin HCl 500 mg 03/13/19 22:00 Keflex - PO BID [facility] Docusate Sodium 100 mg 03/11/19 18:31 Colace - PO Q8H PRN CONSTIPATION Fentanyl 1 patch 03/11/19 18:30 03/11/19 18:45 Duragesic 25mcg Patch - TD 03/18/19 18:30 1 patch Q72H LYNN Administration Folic Acid 1 mg 03/12/19 10:00 03/13/19 09:17 Folic Acid - PO 1 mg DAILY LYNN Administration Sodium Chloride 1,000 mls @ 50 mls/hr 03/12/19 17:15 03/13/19 13:40 Normal Saline - IV 03/13/19 17:15 50 mls/hr ASDIR LYNN Administration Insulin Aspart 1 vial 03/11/19 16:30 03/13/19 11:33 Novolog Vial Sliding Scale - SQ Not Given ACHS LYNN Protocol Mirtazapine 7.5 mg 03/12/19 22:00 03/12/19 21:27 Remeron - PO 7.5 mg HS [facility]YNN Administration Miscellaneous 1 each 03/11/19 18:29 Duragesic Patch Waste MC PRN PRN PAIN Morphine Sulfate 15 mg 03/11/19 18:28 03/11/19 18:45 Msir - PO 15 mg Q6H PRN Administration PAIN LEVEL 4 - 6 Ondansetron HCl 4 mg 03/11/19 00:30 Zofran Injection IVPUSH Q6H PRN NAUSEA AND/OR VOMITING Phenazopyridine HCl 100 mg 03/11/19 18:30 03/13/19 12:16 Pyridium - PO 03/13/19 18:29 100 mg PC [facility]NN Administration Polyethylene Glycol 17 gm 03/12/19 10:00 03/13/19 09:17 Miralax (For Daily Use) - PO Not Given DAILY [facility]NN Rosuvastatin Calcium 5 mg 03/11/19 22:00 03/12/19 21:27 Crestor - PO 5 mg HS [facility]NN Administration Tramadol HCl 50 mg 03/11/19 13:44 03/11/19 17:30 Ultram - PO 50 mg Q8H PRN Administration PAIN Laboratory Tests 03/13/19 06:30 Phosphorus 1.8 L Impression 1. hyponatremia 2. lung cancer 3. dm 4. hypokakemia 5. UTI Plan - sodium improved with fluids - decrease rate of fluids - replace phos - encourage po intake - cont po supplements - will follow
[2019-03-13] MEDS: NAPH,MB-DB/K PH,MBDB POWDER PACKET PO SCH ×2 (16:35→22:22)
[2019-03-13] MEDS: morphine SULFATE IMMEDIATE RELEASE 30 MG TAB PO PRN (18:17)
[2019-03-13] MEDS: CEPHALEXIN MONOHYDRATE 500 MG CAPSULE (UD) PO SCH (22:22)
[2019-03-13] MEDS: MIRTAZAPINE 15 MG TABLET (FP) PO SCH (22:22)
[2019-03-13] MEDS: ROSUVASTATIN CA 5 MG TABLET (FP) PO SCH (22:23)
[2019-03-14] MEDS: NAPH,MB-DB/K PH,MBDB POWDER PACKET PO SCH ×2 (06:23→14:57)
[2019-03-14] MEDS: INSULIN SLIDING SCALE (NOVOLOG) 1 VIAL SQ SCH ×3 (06:37→16:28)
[2019-03-14] MEDS: traMADol HCL 50 MG TABLET PO PRN ×2 (06:45→14:56)
[2019-03-14 07:50] LABS: BASO % 0.4 % (0-2.0); EOS % 2.1 % (0-4.5); HEMATOCRIT 28.4 % (32.4-45.2); HEMOGLOBIN 9.4 GM/dL (10.7-15.3); LYMPH % 9.6 % (8-40); MCH 29.1 pg (25.7-33.7); MCHC 33.2 g/dl (32.0-36.0); MEAN CELL VOLUME 87.7 fl (80-96); MEAN PLT VOLUME 7.2 fl (7.5-11.1); MONO % 5.7 % (3.8-10.2); NEUT % 82.2 % (42.8-82.8); PLATELET COUNT 431 K/MM3 (134-434); RBC 3.24 M/mm3 (3.60-5.2); RDW 15.4 % (11.6-15.6); WHITE BLOOD COUNT 6.7 K/mm3 (4.0-10.0)
[2019-03-14 08:06] LABS: ALBUMIN 2.3 g/dl (3.4-5.0); BILIRUBIN,TOTAL 0.3 mg/dL (0.2-1); BLOOD UREA NITROGEN 6.2 mg/dL (7-18); CALCIUM 7.7 mg/dL (8.5-10.1); CREATININE 0.4 mg/dL (0.55-1.3); MAGNESIUM 2.1 mg/dL (1.8-2.4); PHOSPHOROUS 1.6 mg/dL (2.5-4.9); POTASSIUM 3.9 mmol/L (3.5-5.1); TOT PROT 6.5 g/dl (6.4-8.2)
[2019-03-14] MEDS: FOLIC ACID 1 MG TABLET (FP) PO SCH (09:25)
[2019-03-14] MEDS: CEPHALEXIN MONOHYDRATE 500 MG CAPSULE (UD) PO SCH (09:25)
[2019-03-14] MEDS: morphine SULFATE IMMEDIATE RELEASE 30 MG TAB PO PRN ×2 (09:30→17:56)
[2019-03-14] MEDS: POLYETHYLENE GLYCOL 3350 119 GM BTL PO SCH (12:21)
--- NOTE | 2019-03-14 13:11 | DS ---
Physical Examination Vital Signs: Vital Signs Temperature 98.4 F 03/14/19 06:00 Pulse Rate 103 H 03/14/19 06:00 Respiratory Rate 18 03/14/19 06:00 Blood Pressure 132/56 L 03/14/19 06:00 O2 Sat by Pulse Oximetry (%) 96 03/13/19 21:00 Constitutional: Yes: Calm, Thin Cardiovascular: Yes: Regular Rate and Rhythm, S1, S2 Respiratory: Yes: CTA Bilaterally Gastrointestinal: Yes: Normal Bowel Sounds, Soft Edema: No Neurological: Yes: Alert, Oriented Labs: CBC, BMP 03/14/19 06:35 03/14/19 06:35 Discharge Summary Reason For Visit: URINARY TRACT INFECTION Current Active Problems Hyponatremia (Acute) Weakness (Acute) Hospital Course: PCP: Godfrey Dumont I - Admission Chief Complaint: Dysuri, Foul Smelling Urine, Chronic Abdominal Pain, Nausea and Vomiting History of Present Illness: This is a 79 y/o woman with a PMHx of Metastatic Adenocarcinoma Lung (on Chemo- ? Keytruda, 03/05/19), Bony Metastases s/p RT, SIADH, DM, HLD, Frequent UTIs. Who presents to the ED with her family for foul smelling urine, dysuria, subjective fever x several days, generalized abdominal pain x 1 week. Patient is [employer] speaking, [employer] computer line used # [id number], Sherry. The patient reports supra pubic pain with burning on urination. Patient reports having chronic abdominal pain which she takes morphine for, but reports little relief of pain today. Patient denies cough, dizziness, RIOS, SOB, CP, melena, hematochezia. admitted got iv abx change to po kelfex bid for 7 days Microbiology 03/10/19 21:49 Urine - Urine Clean Catch Urine Culture - Final Escherichia Coli metastatic adenocarcinoma to get chemotherapy next week Condition: Fair - Instructions Diet, Activity, Other Instructions: keflex 500mg po bid for 7 days neutraphos TID for 3 days Disposition: HOME - Home Medications Comprehensive Discharge Medication List: Ambulatory Orders Rosuvastatin [Crestor -] 10 mg PO DAILY 07/25/18 metFORMIN HCL [Metformin ER Osmotic] 500 mg PO BIDAC 07/25/18 Docusate Sodium [Colace -] 100 mg PO TID #90 capsule 07/31/18 Folic Acid - 1 mg PO DAILY #30 tablet 07/31/18 Sennosides [Senna -] 2 tab PO HS #60 tablet 07/31/18 Ondansetron HCl [Zofran] 8 mg PO QID PRN 01/30/19 Prochlorperazine Maleate [Compazine] 10 mg PO TID PRN 01/30/19 Ferrous Sulfate [Feosol] 325 mg PO DAILY #30 ud 02/06/19 Polyethylene Glycol 3350 [Miralax 119 gm Btl -] 17 gm PO DAILY #1 bottle Sennosides [Senna -] 2 tab PO HS #60 tablet 02/06/19 Tramadol HCl 50 mg PO Q8H PRN #15 tablet MDD 3 02/06/19 FENTANYL 25mcg PATCH [DURAGESIC 25mcg PATCH -] 25 mcg PO 03/11/19 Morphine Sulfate 15 mg PO QID 03/11/19
[2019-03-14 14:45] VITALS: BP 108/53; PULSE 118; TEMP 98.7
--- NOTE | 2019-03-14 16:53 | PN ---
Progress Note, Physician History of Present Illness: Pt seen and examined at bedside. She is awake and appears comfortable. - Current Medication List Current Medications: Active Medications Cephalexin HCl (Keflex -) 500 mg PO BID [facility] Last Admin: 03/14/19 09:25 Dose: 500 mg Docusate Sodium (Colace -) 100 mg PO Q8H PRN PRN Reason: CONSTIPATION Fentanyl (Duragesic 25mcg Patch -) 1 patch TD Q72H [facility] Stop: 03/18/19 18:30 Last Admin: 03/11/19 18:45 Dose: 1 patch Folic Acid (Folic Acid -) 1 mg PO DAILY [facility] Last Admin: 03/14/19 09:25 Dose: 1 mg Insulin Aspart (Novolog Vial Sliding Scale -) 1 vial SQ ACHS [facility]; Protocol Last Admin: 03/14/19 16:28 Dose: Not Given Mirtazapine (Remeron -) 7.5 mg PO [facility] Last Admin: 03/13/19 22:22 Dose: 7.5 mg Miscellaneous (Duragesic Patch Waste) 1 each MC PRN PRN PRN Reason: PAIN Morphine Sulfate (Msir -) 15 mg PO Q6H PRN PRN Reason: PAIN LEVEL 4 - 6 Last Admin: 03/14/19 09:30 Dose: 15 mg Ondansetron HCl (Zofran Injection) 4 mg IVPUSH Q6H PRN PRN Reason: NAUSEA AND/OR VOMITING Polyethylene Glycol (Miralax (For Daily Use) -) 17 gm PO DAILY [facility] Last Admin: 03/14/19 12:21 Dose: Not Given Potassium Phos/Sodium Phos (Phos-Nak Packet -) 1 packet PO TID [facility] Stop: 03/15/19 06:01 Last Admin: 03/14/19 14:57 Dose: 1 packet Rosuvastatin Calcium (Crestor -) 5 mg PO [facility] Last Admin: 03/13/19 22:23 Dose: 5 mg Tramadol HCl (Ultram -) 50 mg PO Q8H PRN PRN Reason: PAIN Last Admin: 03/14/19 14:56 Dose: 50 mg - Objective Vital Signs: Vital Signs Temperature 98.7 F 03/14/19 14:43 Pulse Rate 118 H 03/14/19 14:43 Respiratory Rate 20 03/14/19 09:00 Blood Pressure 108/53 L 03/14/19 14:43 O2 Sat by Pulse Oximetry (%) 96 03/14/19 09:00 Constitutional: Yes: Calm Eyes: Yes: Conjunctiva Clear HENT: Yes: Atraumatic Neck: Yes: Supple Cardiovascular: Yes: S1, S2 Respiratory: Yes: CTA Bilaterally Gastrointestinal: Yes: Soft Genitourinary: Yes: WNL Musculoskeletal: Yes: WNL Edema: No Neurological: Yes: Oriented Psychiatric: Yes: Oriented Labs: CBC, BMP 03/14/19 06:35 03/14/19 06:35 INR, PTT INR 1.22 (0.83-1.09) H 03/10/19 21:30 Problem List - Problems (1) Hyponatremia Code(s): E87.1 - HYPO-OSMOLALITY AND HYPONATREMIA (2) Weakness Code(s): R53.1 - WEAKNESS (3) Hypokalemia Code(s): E87.6 - HYPOKALEMIA (4) Metastatic adenocarcinoma Code(s): C79.9 - SECONDARY MALIGNANT NEOPLASM OF UNSPECIFIED SITE Assessment/Plan Current Medications Generic Name Dose Route Start Last Admin Trade Name Freq PRN Reason Stop Dose Admin Cephalexin HCl 500 mg 03/13/19 22:00 03/14/19 09:25 Keflex - PO 500 mg BID [facility] Administration Docusate Sodium 100 mg 03/11/19 18:31 Colace - PO Q8H PRN CONSTIPATION Fentanyl 1 patch 03/11/19 18:30 03/11/19 18:45 Duragesic 25mcg Patch - TD 03/18/19 18:30 1 patch Q72H LYNN Administration Folic Acid 1 mg 03/12/19 10:00 03/14/19 09:25 Folic Acid - PO 1 mg DAILY [facility] Administration Insulin Aspart 1 vial 03/11/19 16:30 03/14/19 16:28 Novolog Vial Sliding Scale - SQ Not Given ACHS [facility] Protocol Mirtazapine 7.5 mg 03/12/19 22:00 03/13/19 22:22 Remeron - PO 7.5 mg HS [facility]YNN Administration Miscellaneous 1 each 03/11/19 18:29 Duragesic Patch Waste [facility] PRN PRN PAIN Morphine Sulfate 15 mg 03/11/19 18:28 03/14/19 09:30 Msir - PO 15 mg Q6H PRN Administration PAIN LEVEL 4 - 6 Ondansetron HCl 4 mg 03/11/19 00:30 Zofran Injection IVPUSH Q6H PRN NAUSEA AND/OR VOMITING Polyethylene Glycol 17 gm 03/12/19 10:00 03/14/19 12:21 Miralax (For Daily Use) - PO Not Given DAILY [facility] Potassium Phos/Sodium Phos 1 packet 03/13/19 16:00 03/14/19 14:57 Phos-Nak Packet - PO 03/15/19 06:01 1 packet TID [facility] Administration Rosuvastatin Calcium 5 mg 03/11/19 22:00 03/13/19 22:23 Crestor - PO 5 mg HS [facility] Administration Tramadol HCl 50 mg 03/11/19 13:44 03/14/19 14:56 Ultram - PO 50 mg Q8H PRN Administration PAIN Impression 1. hyponatremia 2. lung cancer 3. dm 4. hypokakemia 5. UTI Plan - cont nuetraphos - monitor sodium - encourage PO intake - can see pt in office as needed - cont po supplements - will follow
[2019-03-14] MEDS: fentaNYL 25mcg/hr PATCH.TD72 TD SCH ×2 (17:14→17:36)
== END 2019-03-14 19:27 | disposition home or self-care (01) | DRG 689 ==
LOC: JER 17:51 → JERBED 23:58 → J7W 03-11 13:09
PROVIDERS: ADMIT Family Medicine; ATTEND Family Medicine
DX: N39.0 Urinary tract infection, site not specified (principal); E43 Unspecified severe protein-calorie malnutrition; C34.90 Malignant neoplasm of unspecified part of unspecified bronchus or lung; C79.51 Secondary malignant neoplasm of bone; E87.1 Hypo-osmolality and hyponatremia; R18.8 Other ascites; E78.5 Hyperlipidemia, unspecified; E11.9 Type 2 diabetes mellitus without complications; R10.2 Pelvic and perineal pain; E87.6 Hypokalemia; R10.9 Unspecified abdominal pain; D63.8 Anemia in other chronic diseases classified elsewhere; R53.1 Weakness; B96.20 Unspecified Escherichia coli [E. coli] as the cause of diseases classified elsewhere; Z86.19 Personal history of other infectious and parasitic diseases; Z87.891 Personal history of nicotine dependence
CPT/HCPCS: 36415; 71045-TC-FY; 76775-TC; 76856-TC; 80048; 80053; 81003; 82436; 82803; 82962; 83605; 83735; 83930; 83935; 84100; 84133; 84300; 84484; 85025; 85610; 85730; 87040; 87086; 87186; 93005; 93010; 96367; 96375; 96413; 97116-GP; 97161-GP; 99283-25; J0131; J1100; J7030; J9264

== ENCOUNTER 2019-03-19 07:02 | Day surgery (SDC) | payer OTHER ==
[2019-03-19] MEDS ORDERED: PACLITAXEL PROTEIN BOUND IVPB ONE ×2 (10:00→13:00)
[2019-03-19] MEDS ORDERED: SODIUM CHLORIDE IVPB ONE ×2 (10:00→13:00)
[2019-03-19 11:09] LABS: BASO % 0.5 % (0-2.0); EOS % 1.2 % (0-4.5); HEMATOCRIT 29.4 % (32.4-45.2); HEMOGLOBIN 9.6 GM/dL (10.7-15.3); MCH 28.5 pg (25.7-33.7); MCHC 32.7 g/dl (32.0-36.0); MEAN CELL VOLUME 87.4 fl (80-96); MEAN PLT VOLUME 6.6 fl (7.5-11.1); MONO % 9.3 % (3.8-10.2); PLATELET COUNT 437 K/MM3 (134-434); RBC 3.36 M/mm3 (3.60-5.2); RDW 15.5 % (11.6-15.6); WHITE BLOOD COUNT 5.5 K/mm3 (4.0-10.0)
[2019-03-19 11:39] LABS: ALBUMIN 2.1 g/dl (3.4-5.0); BILIRUBIN,DIRECT 0.1 mg/dL (0.0-0.2); BILIRUBIN,TOTAL 0.2 mg/dL (0.2-1); BLOOD UREA NITROGEN 8.1 mg/dL (7-18); CALCIUM 8.2 mg/dL (8.5-10.1); CREATININE 0.7 mg/dL (0.55-1.3); MAGNESIUM 2.1 mg/dL (1.8-2.4); POTASSIUM 3.8 mmol/L (3.5-5.1); TOT PROT 6.2 g/dl (6.4-8.2)
[2019-03-19] MEDS ORDERED: SODIUM CHLORIDE 1,000 ML IV STA (11:46)
[2019-03-19] MEDS ORDERED: ACETAMINOPHEN 325 MG TABLET (FP) PO ONE (11:47)
[2019-03-19] MEDS ORDERED: DEXAMETHASONE SOD PHOSPHATE 10 MG/1 ML VIAL IVPB ONE (11:47)
[2019-03-19] MEDS ORDERED: PORTA CATH FLUSH 10 ML IVPUSH ONE (15:06)
[2019-03-19 18:40] VITALS: BP 119/48; PULSE 89; TEMP 98.4
== END 2019-03-19 19:17 | disposition home or self-care (01) ==
LOC: JONCCHEMO 07:02 → J7W 11:43 → JONCCHEMO 19:17
PROVIDERS: ATTEND Internal Medicine Hematology & Oncology
DX: Z51.11 Encounter for antineoplastic chemotherapy (principal); C34.11 Malignant neoplasm of upper lobe, right bronchus or lung
CPT/HCPCS: 36415; 80048; 80076; 83735; 85025; 96361; 96367; 96375; 96413; J1100; J7030; J9264

== ENCOUNTER 2019-03-21 07:09 | Day surgery (SDC) | payer OTHER ==
[2019-03-21] MEDS ORDERED: SODIUM CHLORIDE 1,000 ML IV SCH (11:30)
[2019-03-21 14:54] VITALS: TEMP 99.1
[2019-03-21 15:46] VITALS: BP 115/64; PULSE 117
[2019-03-21] MEDS ORDERED: PORTA CATH FLUSH 10 ML IVPUSH ONE (15:46)
== END 2019-03-21 16:30 | disposition home or self-care (01) ==
LOC: JONCCHEMO 07:09 → J7W 11:13 → JONCCHEMO 16:30
PROVIDERS: ATTEND Internal Medicine Hematology & Oncology
PROC: 3E0437Z Introduction of Electrolytic and Water Balance Substance into Central Vein, Percutaneous Approach (ICD-10-PCS; principal; 2019-03-21)
DX: C34.11 Malignant neoplasm of upper lobe, right bronchus or lung (principal); Z76.89 Persons encountering health services in other specified circumstances
CPT/HCPCS: 96360; 96361; J7030

== ENCOUNTER 2019-03-25 16:15 | Inpatient (IN) | payer OTHER ==
[2019-03-25] MEDS ORDERED: ACETAMINOPHEN INJECTION 100 ML IVPB ONE (17:48)
[2019-03-25] MEDS ORDERED: ACETAMINOPHEN 1000 MG/100 ML VIAL (NON FORMULARY) IVPB ONE (17:48)
[2019-03-25 18:06] LABS: VENOUS PC02 36.5 mmHg (38-52); VENOUS PH 7.48 (7.31-7.41); VENOUS PO2 75.2 mmHg (28-48)
[2019-03-25 18:07] LABS: BASO % 0.6 % (0-2.0); EOS % 1.2 % (0-4.5); HEMATOCRIT 25.6 % (32.4-45.2); HEMOGLOBIN 8.5 GM/dL (10.7-15.3); LYMPH % 15.6 % (8-40); MCH 28.1 pg (25.7-33.7); MCHC 33.1 g/dl (32.0-36.0); MEAN PLT VOLUME 6.8 fl (7.5-11.1); MONO % 21.5 % (3.8-10.2); NEUT % 61.1 % (42.8-82.8); PLATELET COUNT 354 K/MM3 (134-434); RBC 3.01 M/mm3 (3.60-5.2); WHITE BLOOD COUNT 2.2 K/mm3 (4.0-10.0)
--- NOTE | 2019-03-25 18:08 | PDOC ---
Attending Attestation - Resident Resident Name: SantoshAnnie - ED Attending Attestation I have performed the following: I have examined & evaluated the patient, The case was reviewed & discussed with the resident, I agree w/resident's findings & plan, Exceptions are as noted - HPI HPI: 03/25/19 18:08 79y F hx of lung adenocarcinoma (on radiation - last time today, chemo - last dose last sun), chronic lower abodominal pain, frequenty utis, SIADH, DM HL presents with complaint of fall - pt states she fell and hit her head without any LOC. Pt also notes a chronic lower abd pain and dysuria which is unchagned frmo prior admission. pt denies any cp, sob, cough, new abd pain, back pain.pt notes shehas diarrhae for the past 5-6 months- but is unchanged frmo her baseline. no blood in stool. pt denies any current headache, n/v. exam: general: no acute distress HEENT: mild erhythema on L forehead without crepitus abd: mild lower abd tenderness, no cva tenderenss, no rebound/guarding card: tachycardic, no murmers pulm: cta b/l, chset port c/d/i on R chest sepsis orderset obtained uponn arrival will r/o infection including pna, uti, will obtain blood work, cxr, ua, will reasess - Physicial Exam PE: 03/29/19 11:07 see above - Critical Care Time Total Critical Care Time: 35 Critical Care Statement: The care of this patient involved high complexity decision making to prevent further life threatening deterioration of the patient 's condition and/or to evaluate & treat vital organ system(s) failure or risk of failure. - Medical Decision Making pt signed out to [facility] team to fu with results and dispo patient
[2019-03-25 18:23] LABS: INR 1.22 (0.83-1.09); PROTHROMBIN TIME (PATIENT) 14.4 SEC (9.7-13.0)
[2019-03-25 18:27] LABS: EPI CELLS 1.2 /HPF (0-5/HPF); HYALINE CASTS 11 /lpf (0-8); URINE APPEARANCE CLOUDY; URINE BACTERIA 26.7 /hpf (NEGATIVE); URINE BILIRUBIN NEGATIVE (NEGATIVE); URINE COLOR YELLOW; URINE GLUCOSE (UA) NEGATIVE (NEGATIVE); URINE KETONE NEGATIVE (NEGATIVE); URINE LEUK ESTERASE 2+ (NEGATIVE); URINE NITRITE NEGATIVE (NEGATIVE); URINE PROTEIN 1+ (NEGATIVE); URINE RBC 4 /hpf (0-4); URINE UROBILINOGEN 0.2 mg/dL (0.2-1.0); URINE WBC 63 /hpf (0-5)
[2019-03-25 18:35] LABS: BILIRUBIN,TOTAL 0.3 mg/dL (0.2-1); BLOOD UREA NITROGEN 7.6 mg/dL (7-18); CALCIUM 7.8 mg/dL (8.5-10.1); CREATININE 0.5 mg/dL (0.55-1.3); POTASSIUM 4.2 mmol/L (3.5-5.1); TOT PROT 5.5 g/dl (6.4-8.2)
[2019-03-25] MEDS ORDERED: SODIUM CHLORIDE 1,000 ML IV STA (18:36)
[2019-03-25] MEDS ORDERED: PIPERACILLIN/TAZOB 3.375 GM 3.375 GM in DEXTROSE 5%-WATER - 50 ML IVPB ONE (18:41)
[2019-03-25] MEDS ORDERED: PIPERACILLIN/TAZOB 3.375 GM 3.375 GM/50 ML BAG IVPB ONE (18:52)
--- NOTE | 2019-03-25 19:10 | PDOC ---
History of Present Illness - General Chief Complaint: Weakness Stated Complaint: FALL Time Seen by Provider: 03/25/19 18:06 History Source: Patient, Family Exam Limitations: Clinical Condition (limited, see HPI) - History of Present Illness Initial Comments: Pt is a 79 yo F, with PMH of adenocarcinoma (lung with mets to the spine), SIADH (hypoNa/hypoK), DM, HLD, HTN, and frequent lower abdominal pain and UTIs, who is presenting with generalized weakness, diarrhea, subjective fever, and a fall. Pt is accompanied by family members, who state the pt had a fall yesterday "from feeling so weak," but pt denies LOC or hitting her head. Pt states her lower abdominal pain is consistent with her usual pain, and denies any recent blood in her BMs. Pt has had persistent nausea with chemo but has been able to tolerate some PO. Pt denies any headache, vision changes, syncope, chest pain, palpitations, SOB, abdominal pain, or leg swelling. CA treatments: chemo (keytruda), last radiation treatment done today (every day for session of 10) Allergies: NKDA Pt is FULL CODE. Initiated conversation with family and pt about her wishes. Heme/Onc: Dr. Kerr Social: Pt denies any cigarette, alcohol, or drug use. Pt denies any recent travel or sick contacts. Surgical: no relevant history. Family: no relevant history. 04/03/19 12:16 Past History - Travel Traveled outside of the country in the last 30 days: No Close contact w/someone who was outside of country & ill: No - Past Medical History Allergies/Adverse Reactions: Allergies Allergy/AdvReac Type Severity Reaction Status Date / Time No Known Allergies Allergy Verified 03/10/19 18:01 Home Medications: Ambulatory Orders Rosuvastatin [Crestor -] 10 mg PO DAILY 07/25/18 metFORMIN HCL [Metformin ER Osmotic] 500 mg PO BIDAC 07/25/18 Docusate Sodium [Colace -] 100 mg PO TID #90 capsule 07/31/18 Folic Acid - 1 mg PO DAILY #30 tablet 07/31/18 Sennosides [Senna -] 2 tab PO HS #60 tablet 07/31/18 Ondansetron HCl [Zofran] 8 mg PO QID PRN 01/30/19 Prochlorperazine Maleate [Compazine] 10 mg PO TID PRN 01/30/19 Ferrous Sulfate [Feosol] 325 mg PO DAILY #30 ud 02/06/19 Polyethylene Glycol 3350 [Miralax 119 gm Btl -] 17 gm PO DAILY #1 bottle Sennosides [Senna -] 2 tab PO HS #60 tablet 02/06/19 FENTANYL 25mcg PATCH [DURAGESIC 25mcg PATCH -] 25 mcg PO 03/11/19 Morphine Sulfate 15 mg PO QID 03/11/19 Cephalexin Monohydrate [Keflex -] 500 mg PO BID #14 capsule 03/14/19 FENTANYL 25mcg PATCH [DURAGESIC 25mcg PATCH -] 1 patch TD Q72H #10 patch MDD 1 03/14/19 Morphine *Immediate Release* [Msir -] 15 mg PO Q6H PRN #20 tab MDD 4 03/14/19 Naph,Mb-Db/K pH,Mbdb [PHOS-NaK PACKET -] 1 packet PO TID #10 pow 03/14/19 Tramadol HCl 50 mg PO Q8H PRN #15 tablet MDD 3 03/14/19 Cancer: Yes (Metastatic Lung carcinoma - on Keytruda) COPD: No Diabetes: Yes (Type II) GI Disorders: Yes (Diverticulitis w/abscess an I&D) Disorders: (Freq. UTI's) Hypercholesterolemia: Yes Thyroid Disease: Yes - Immunization History Immunization Up to Date: No - Suicide/Smoking/Psychosocial Hx Smoking History: Unknown if ever smoked Have you smoked in the past 12 months: No If you are a former smoker, when did you quit?: 3 yrs ago Information on smoking cessation initiated: No Hx Alcohol Use: No Drug/Substance Use Hx: No Substance Use Type: None Hx Substance Use Treatment: No Review of Systems - Review of Systems Able to Perform ROS?: No (limited, see HPI) *Physical Exam - Vital Signs Last Vital Signs Temp Pulse Resp BP Pulse Ox 102.2 F H 122 H 19 123/64 92 L 03/25/19 17:14 03/25/19 17:48 03/25/19 17:14 03/25/19 17:14 03/25/19 17:48 - Physical Exam Comments: Febrile, tachycardic. Pt appears ill, normal body habitus. Pt alert and oriented x3. 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 No midline spinal tenderness, step-offs, or crepitus. Head normocephalic, atraumatic. Eyes PERRLA, EOMI. Oropharynx without erythema or exudates, no LAD b/l. No nasal congestion, hearing intact. Clear heart sounds, S1/S2, no JVD, b/l pedal edema, or heart murmur. Clear lung sounds, no respiratory distress, wheezes, crackles, or accessory muscle use. Diffuse lower abdominal TTP. No CVA tenderness to palpation, no rebound, no guarding. Abdomen soft, non-distended, and with normoactive bowel sounds. No notable pressure ulcers/sores. Skin without jaundice or rash. 04/03/19 22:48 ED Treatment Course - LABORATORY CBC & Chemistry Diagram: 04/03/19 06:55 04/03/19 06:55 - ADDITIONAL ORDERS Additional order review: Laboratory Results 03/25/19 03/25/19 03/25/19 17:56 17:42 17:42 PT with INR 14.40 H INR 1.22 H PTT (Actin FS) VBG pH 7.48 H POC VBG pCO2 36.5 L POC VBG pO2 75.2 H VBG HCO3 26.7 VBG O2 Sat (Ariana) 95.2 H VBG Base Excess 3.4 H Sodium Potassium Chloride Carbon Dioxide Anion Gap BUN Creatinine Est GFR (CKD-EPI)AfAm Est GFR (CKD-EPI)NonAf Random Glucose Lactic Acid Calcium Total Bilirubin AST ALT Alkaline Phosphatase Troponin I Total Protein Albumin Urine Color Yellow Urine Appearance Cloudy Urine pH 7.0 Ur Specific [place] 1.005 L Urine Protein 1+ H Urine Glucose (UA) Negative Urine Ketones Negative Urine Blood Trace Urine Nitrite Negative Urine Bilirubin Negative Urine Urobilinogen 0.2 Ur Leukocyte Esterase 2+ H Urine WBC (Auto) 63 Urine RBC (Auto) 4 Urine Casts (Auto) 11 U Epithel Cells (Auto) 1.2 Urine Bacteria (Auto) 26.7 03/25/19 03/25/19 03/25/19 17:42 17:42 17:42 PT with INR INR PTT (Actin FS) 30.5 VBG pH POC VBG pCO2 POC VBG pO2 VBG HCO3 VBG O2 Sat (Ariana) VBG Base Excess Sodium 128 L Potassium 4.2 Chloride 91 L Carbon Dioxide 29 Anion Gap 9 BUN 7.6 Creatinine 0.5 L Est GFR (CKD-EPI)AfAm 108.20 Est GFR (CKD-EPI)NonAf 93.36 Random Glucose 138 H Lactic Acid 0.6 Calcium 7.8 L Total Bilirubin 0.3 AST 21 ALT 15 Alkaline Phosphatase 87 Troponin I Total Protein 5.5 L Albumin 2.0 L Urine Color Urine Appearance Urine pH Ur Specific [place] Urine Protein Urine Glucose (UA) Urine Ketones Urine Blood Urine Nitrite Urine Bilirubin Urine Urobilinogen Ur Leukocyte Esterase Urine WBC (Auto) Urine RBC (Auto) Urine Casts (Auto) U Epithel Cells (Auto) Urine Bacteria (Auto) 03/25/19 17:42 PT with INR INR PTT (Actin FS) VBG pH POC VBG pCO2 POC VBG pO2 VBG HCO3 VBG O2 Sat (Ariana) VBG Base Excess Sodium Potassium Chloride Carbon Dioxide Anion Gap BUN Creatinine Est GFR (CKD-EPI)AfAm Est GFR (CKD-EPI)NonAf Random Glucose Lactic Acid Calcium Total Bilirubin AST ALT Alkaline Phosphatase Troponin I < 0.02 Total Protein Albumin Urine Color Urine Appearance Urine pH Ur Specific [place] Urine Protein Urine Glucose (UA) Urine Ketones Urine Blood Urine Nitrite Urine Bilirubin Urine Urobilinogen Ur Leukocyte Esterase Urine WBC (Auto) Urine RBC (Auto) Urine Casts (Auto) U Epithel Cells (Auto) Urine Bacteria (Auto) 03/25/19 17:42 RBC 3.01 L MCV 85.0 MCHC 33.1 RDW 16.0 H MPV 6.8 L Neutrophils % 61.1 D Lymphocytes % 15.6 D Monocytes % 21.5 H D Eosinophils % 1.2 Basophils % 0.6 - RADIOLOGY Radiology Studies Ordered: Category Date Time Status CERVICAL SPINE CT W/O CONTR [CT] Stat CT Scan 03/25/19 18:35 Ordered - Medications Given in the ED: ED Medications Discontinued Medications Generic Name Dose Route Start Last Admin Trade Name Freq PRN Reason Stop Dose Admin Acetaminophen 1,000 mg 03/25/19 17:48 03/25/19 17:50 Ofirmev Injection - IVPB 03/25/19 17:49 1,000 mg ONCE ONE Administration Medical Decision Making - Medical Decision Making Pt was seen at bedside, also will be seen by attending Dr. Salgado. Pt presenting with fever, diarrhea, and generalized weakness; pt with metastatic lung CA on chemo and radiation. Ordered septic w/u including blood and urine cultures. CT head and C-spine due to falls. Provided sepsis fluids and IV tylenol for improvement of fever and dehydration. Will continue to reassess pt and monitor for symptomatic improvement. 04/03/19 22:49 CBC: WBC 2.2, anemia within pt baseline (ANC 1.3); not at transfusion levels CMP: Na 128 UA with +LE and +bacteria Providing IV zosyn 04/03/19 22:51 Chest x-ray with no acute pathology Pt pending CT head and C-spine. Pt endorsed to night team for imaging and admission. 04/03/19 22:53 *DC/Admit/Observation/Transfer Diagnosis at time of Disposition: UTI (urinary tract infection) Qualifiers: Urinary tract infection type: site unspecified Hematuria presence: with hematuria Qualified Code(s): N39.0 - Urinary tract infection, site not specified ; R31.9 - Hematuria, unspecified Sepsis Qualifiers: Sepsis type: sepsis due to unspecified organism Sepsis acute organ dysfunction status: unspecified Qualified Code(s): A41.9 - Sepsis, unspecified organism Metastatic lung cancer (metastasis from lung to other site) Qualifiers: Laterality: left Qualified Code(s): C34.92 - Malignant neoplasm of unspecified part of left bronchus or lung - Discharge Dispostion Condition at time of disposition: Stable Decision to Admit order: Yes - Referrals - Patient Instructions - Post Discharge Activity
[2019-03-25 21:02] LABS: PLATELET ESTIMATE NORMAL
--- NOTE | 2019-03-25 23:20 | HP ---
Admitting History and Physical - Primary Care Physician PCP: Reva Sadler - Admission Chief Complaint: Abdominal Pain History of Present Illness: This is a 9 y/o woman with a PMHx of Lung Ca (on Chemo- Keytruda last dose last Sunday), HLD, NIDDM, SIADH, Chronic Abdominal Pain, Chronic UTIs. Who presents to the ED with abdominal pain, fever, foul smelling urine. Patient reports having vaginal discharge with pressure. Patient denies cough, SOB, dizziness, CP, palpitations, N/V/D, constipation History Source: Patient Limitations to Obtaining History: No Limitations - Past Medical History Cardiovascular: Yes: Hyperlipdemia Pulmonary: Yes: Cancer (Metastatic) Renal/: Yes: UTI Heme/Onc: Yes: Cancer Musculoskeletal: Yes: Other (Bony Metastases (s/p RT)) Endocrine: Yes: Diabetes Mellitus, SIADH - Smoking History Smoking history: Unknown if ever smoked Have you smoked in the past 12 months: No If you are a former smoker, when did you quit?: 3 yrs ago - Alcohol/Substance Use Hx Alcohol Use: No History of Substance Use: reports: None - Social History Usual Living Arrangement: Yes: Alone ADL: Independent History of Recent Travel: No Home Medications - Allergies Allergies/Adverse Reactions: Allergies Allergy/AdvReac Type Severity Reaction Status Date / Time No Known Allergies Allergy Verified 03/10/19 18:01 - Home Medications Home Medications: Ambulatory Orders Rosuvastatin [Crestor -] 10 mg PO DAILY 07/25/18 metFORMIN HCL [Metformin ER Osmotic] 500 mg PO BIDAC 07/25/18 Docusate Sodium [Colace -] 100 mg PO TID #90 capsule 07/31/18 Folic Acid - 1 mg PO DAILY #30 tablet 07/31/18 Sennosides [Senna -] 2 tab PO HS #60 tablet 07/31/18 Ondansetron HCl [Zofran] 8 mg PO QID PRN 01/30/19 Prochlorperazine Maleate [Compazine] 10 mg PO TID PRN 01/30/19 Ferrous Sulfate [Feosol] 325 mg PO DAILY #30 ud 02/06/19 Polyethylene Glycol 3350 [Miralax 119 gm Btl -] 17 gm PO DAILY #1 bottle Sennosides [Senna -] 2 tab PO HS #60 tablet 02/06/19 FENTANYL 25mcg PATCH [DURAGESIC 25mcg PATCH -] 25 mcg PO 03/11/19 Morphine Sulfate 15 mg PO QID 03/11/19 Cephalexin Monohydrate [Keflex -] 500 mg PO BID #14 capsule 03/14/19 FENTANYL 25mcg PATCH [DURAGESIC 25mcg PATCH -] 1 patch TD Q72H #10 patch MDD 1 03/14/19 Morphine *Immediate Release* [Msir -] 15 mg PO Q6H PRN #20 tab MDD 4 03/14/19 Naph,Mb-Db/K pH,Mbdb [PHOS-NaK PACKET -] 1 packet PO TID #10 pow 03/14/19 Tramadol HCl 50 mg PO Q8H PRN #15 tablet MDD 3 03/14/19 Family Disease History - Family Disease History Family Disease History: Diabetes: Mother (), Other: Father (- old age), Sister (alive and well), Son (alive and well) Review of Systems - Review of Systems Constitutional: reports: Fever Eyes: reports: No Symptoms HENT: reports: No Symptoms Neck: reports: No Symptoms Cardiovascular: reports: No Symptoms Respiratory: reports: No Symptoms Gastrointestinal: reports: Abdominal Pain Genitourinary: reports: Dysuria, Other (suprapubic pain) Breasts: reports: No Symptoms Reported Musculoskeletal: reports: No Symptoms Integumentary: reports: No Symptoms Neurological: reports: No Symptoms Endocrine: reports: No Symptoms Hematology/Lymphatic: reports: No Symptoms Psychiatric: reports: No Symptoms Pain Intensity: 4 Physical Examination Vital Signs: Vital Signs Temperature 102.2 F H 03/25/19 17:14 Pulse Rate 90 03/25/19 20:48 Respiratory Rate 12 03/25/19 20:48 Blood Pressure 130/112 H 03/25/19 20:48 O2 Sat by Pulse Oximetry (%) 96 03/25/19 20:48 Constitutional: Yes: Mild Distress, Thin, Other (ill appearing) Eyes: Yes: Conjunctiva Clear, EOM Intact, PERRL HENT: Yes: WNL, Atraumatic, Normocephalic Neck: Yes: WNL, Supple, Trachea Midline Cardiovascular: Yes: WNL, Regular Rate and Rhythm, S1, S2 Respiratory: Yes: WNL, Regular, CTA Bilaterally Gastrointestinal: Yes: Normal Bowel Sounds, Soft, Other (suprapubic TTP) ...Rectal Exam: Yes: Guaiac Negative, Sphincter Tone Normal Renal/: Yes: Other (no vaginal discharge noted). No: Vaginal Discharge Breast(s): Yes: WNL Musculoskeletal: Yes: WNL Extremities: Yes: WNL Edema: No Peripheral Pulses WNL: Yes Integumentary: Yes: Jaundice Neurological: Yes: Alert, Oriented, Cran Nerves II-XII Intact ...Motor Strength: WNL Psychiatric: Yes: WNL, Alert, Oriented Labs: CBC, BMP 03/25/19 17:42 03/25/19 17:42 Imaging - Results Chest X-ray: Image Reviewed EKG: Image Reviewed Problem List - Problems (1) Sepsis Assessment/Plan: Likely due to UTI Sepsis Criteria Met: T Max 102.2, P 128, Spo2 93%, +2 leukocyte esterase, 63 wbc qSOFA 0 Urine Culture-pending Blood Culture-pending Zosyn given in ED, will continue Chest Xray- reviewed Appreciate ID consult Monitor CBC, BMP Monitor vitals Code(s): A41.9 - SEPSIS, UNSPECIFIED ORGANISM (2) UTI (urinary tract infection) Assessment/Plan: UA- +2 leukocyte esterase, 63 wbc Urine Culture-pending Continue Zosyn Appreciate ID consult Monitor vitals Monitor CBC Pyridum given for dysuria Code(s): N39.0 - URINARY TRACT INFECTION, SITE NOT SPECIFIED (3) Abdominal pain Assessment/Plan: Likely secondary to malignancy vs UTI hx Chronic Abdominal Pain Pain Control Appreciate Oncology consult Consider GI consult if condition worsens Monitor CBC, BMP Lipase and Amylase in am Monitor vitals Code(s): R10.9 - UNSPECIFIED ABDOMINAL PAIN (4) Hyponatremia Assessment/Plan: Hx SIADH NS bolus given in ED Will monitor BMP closely Consider Nephrology consult if condition worsens Monitor vitals Code(s): E87.1 - HYPO-OSMOLALITY AND HYPONATREMIA (5) Stage 4 lung cancer Assessment/Plan: Appreciate Oncology consult 02 Will continue to treat with interventions accordingly Code(s): C34.90 - MALIGNANT NEOPLASM OF UNSP PART OF UNSP BRONCHUS OR LUNG (6) Anemia Assessment/Plan: stable Hgb 8.5 Baseline (8.8-12.4) Will transfuse if Hgb is < 7.0 Monitor CBC Monitor vitals Stool Occult neg Code(s): D64.9 - ANEMIA, UNSPECIFIED (7) Diabetes Assessment/Plan: stable BGMs ISS when diet resumed Code(s): E11.9 - TYPE 2 DIABETES MELLITUS WITHOUT COMPLICATIONS (8) HLD (hyperlipidemia) Assessment/Plan: stable Continue home med Monitor LFTs Code(s): E78.5 - HYPERLIPIDEMIA, UNSPECIFIED Assessment/Plan This is a 79 y/o woman with a PHx of Metastatic Lung Ca (on Keytruda), HLD, NIDDM, SIADH, Chronic Abdominal Pain, Chronic UTIs. Admitted to Med Surg for Sepsis, UTI, Hyponatremia, Intractable Abdominal Pain for further evaluation of their emergent condition. Plan: See Problem List FEN Replete lytes prn Low Na, Diabetic Diet DVT ppx OOB SCDs Lovenox SQ Dispo: Requires Inpatient Care Visit type - Emergency Visit Emergency Visit: Yes ED Registration Date: 03/25/19 Care time: The patient presented to the Emergency Department on the above date and was hospitalized for further evaluation of their emergent condition. - New Patient This patient is new to me today: Yes Date on this admission: 03/25/19 - Critical Care Critical Care patient: No
[2019-03-26] MEDS ORDERED: PHENAZOPYRIDINE HCL 100 MG TABLET (FP) PO ONE (00:28)
[2019-03-26 08:03] LABS: BASO % 0.5 % (0-2.0); EOS % 2.5 % (0-4.5); HEMATOCRIT 25.1 % (32.4-45.2); HEMOGLOBIN 8.2 GM/dL (10.7-15.3); LYMPH % 15.4 % (8-40); MCHC 32.8 g/dl (32.0-36.0); MEAN CELL VOLUME 85.3 fl (80-96); MONO % 25.3 % (3.8-10.2); NEUT % 56.3 % (42.8-82.8); PLATELET COUNT 354 K/MM3 (134-434); RBC 2.94 M/mm3 (3.60-5.2); RDW 15.8 % (11.6-15.6); WHITE BLOOD COUNT 2.2 K/mm3 (4.0-10.0)
[2019-03-26 08:15] LABS: BLOOD UREA NITROGEN 5.8 mg/dL (7-18); CALCIUM 7.9 mg/dL (8.5-10.1); CREATININE 0.3 mg/dL (0.55-1.3); POTASSIUM 3.9 mmol/L (3.5-5.1)
[2019-03-26] MEDS: ACETAMINOPHEN 325 MG TABLET (FP) PO PRN ×2 (08:50→19:54)
--- NOTE | 2019-03-26 09:02 | EKG ---
Test Reason : Blood Pressure : / mmHG Vent. Rate : 128 BPM Atrial Rate : 128 BPM P-R Int : 128 ms QRS Dur : 072 ms QT Int : 300 ms P-R-T Axes : 057 034 054 degrees QTc Int : 438 ms SINUS TACHYCARDIA OTHERWISE NORMAL ECG WHEN COMPARED WITH ECG OF 10-MAR-2019 18:06, NO SIGNIFICANT CHANGE WAS FOUND Confirmed by ROWENA PRUITT MD ([id number]) on 03/26/2019 9:02:38 AM Referred By: Confirmed By:ROWENA PRUITT MD
[2019-03-26] MEDS: ENOXAPARIN NA (PORCINE) 40 MG/0.4 ML DISP.SYRIN SQ SCH (10:07)
--- NOTE | 2019-03-26 10:37 | PN ---
Progress Note (short form) - Note Progress Note: ID consult dictated imp/reccd 79 yo female with metastatic lung cancer-on keytruda history of chronic diarrhea-but appears to be on chronic laxatives per med list chronic pelvic pain- appears related to abdominal wall mass frequent UTIs developed fever after chemo last week s/p fall yesterday fever to 102.2 yesterday in ED cultures sent and received zosyn leukopenic with anc 1200/fever continue zosyn for now +pyuria- possible uti continue contact isolation am not sure fever is infectious but will continue zosyn pending cultures Problem List - Problems (1) Fever Code(s): R50.9 - FEVER, UNSPECIFIED (2) UTI (urinary tract infection) Code(s): N39.0 - URINARY TRACT INFECTION, SITE NOT SPECIFIED (3) Leukopenia Code(s): D72.819 - DECREASED WHITE BLOOD CELL COUNT, UNSPECIFIED (4) Metastatic adenocarcinoma Code(s): C79.9 - SECONDARY MALIGNANT NEOPLASM OF UNSPECIFIED SITE
[2019-03-26] MEDS ORDERED: PIPERACILLIN/TAZOBACTAM 3.375 GM VIAL IVPB ONE ×2 (11:03→17:27)
[2019-03-26] MEDS ORDERED: DEXTROSE 5%-WATER - 50 ML IVPB ONE ×2 (11:04→17:27)
[2019-03-26] MEDS: PIPERACILLIN/TAZOB 3.375 GM 3.375 GM in DEXTROSE 5%-WATER - 50 ML IVPB SCH ×2 (11:18→17:37)
[2019-03-26] MEDS: INSULIN SLIDING SCALE (NOVOLOG) 1 VIAL SQ SCH ×3 (11:38→21:34)
[2019-03-26 11:51] LABS: ANISOCYTOSIS 0; MACROCYTOSIS 0; PLATELET ESTIMATE NORMAL
--- NOTE | 2019-03-26 12:29 | CONSULT ---
Consultation: Hematology/Oncology Consultation REQUESTING PROVIDER: Sonia Avendano CONSULT REQUEST: We have been asked to medically evaluate this patient for Lung CA HISTORY OF PRESENT ILLNESS: 79 year old, northern irish-speaking female with a history of metastatic lung CA s/p immunotherapy/chemo (now on Abraxane) and palliative radiation, hyperlipidemia, diabetes mellitus, SIADH, chronic abdominal pain and frequent UTIs presented to the hospital after a mechanical fall without loss of consciousness. Reports hitting her head in the process. She reports continued suprapubic pain she states has been going on for several months as well as dysuria and polyuria. Patient states that she has also felt febrile with chills as well as chronic diarrhea for many weeks. Denied new cough, chest pain, shortness of breath, nausea, vomiting. No recent travel, no sick contacts. Patient is followed by Dr. Kerr. Allergies: no known Surgeries: hysterectomy Smoker: former, unclear history from patient Alcohol use: none Drugs: none Family History: no family history of cancer, bleeding or clotting disorders elicited Oncologic History: 2017: CT abdomen/pelvis showed mass like density and atelectasis in RLL 11/17/2017: mass like density is continued to be seen on CT abdomen/pelvis, continued to be followed 08/02/2018: biopsy of supraclavicular lymph node: invasive adenocarcinoma moderately differentiated positive for CK7, CK20, AE1/3, TTF1, PDL1 50% 08/06/2018: diagnosed with adenocarcinoma of the lung when a RLL lung mass and a right sided adrenal mass were found with b/l supraclavicular lymphadenopathy 08/08/2018: started pembrolizumab therapy 09/11/2018: completed radiation therapy to supraclavicular area 10/16/2018: CT abdomen/pelvis showed progressing lung mass and right axillary adenopathy with a left lower abdominal wall mass 10/30/2018: continued keytruda and added carboplatin, pemetrexed 01/08/2019: started zometa (zoledronic acid) for bone mets after CT abd/pelvis showed worsening sacral lesion 02/25/2019: completed radiation therapy to abdominal wall mass 03/05/2019: started on abraxane (paclitaxel protein bound) (Cycle 1 day 1), continued on zometa REVIEW OF SYSTEMS: CONSTITUTIONAL: fever, chills,generalized weakness Absent: diaphoresis, malaise, loss of appetite, weight change HEENT: Absent: rhinorrhea, nasal congestion, throat pain, throat swelling, difficulty swallowing, mouth swelling, ear pain, eye pain, visual changes CARDIOVASCULAR: Absent: chest pain, syncope, palpitations, irregular heart rate, lightheadedness , peripheral edema RESPIRATORY: Absent: cough, shortness of breath, dyspnea with exertion, orthopnea, wheezing, stridor, hemoptysis GASTROINTESTINAL: Absent: abdominal pain, abdominal distension, nausea, vomiting, diarrhea, constipation, melena, hematochezia GENITOURINARY: Absent: dysuria, frequency, urgency, hesitancy, hematuria, flank pain, genital pain MUSCULOSKELETAL: Absent: myalgia, arthralgia, joint swelling, back pain, neck pain SKIN: Absent: rash, itching, pallor HEMATOLOGIC/IMMUNOLOGIC: Absent: easy bleeding, easy bruising, lymphadenopathy, frequent infections ENDOCRINE: Absent: unexplained weight gain, unexplained weight loss, heat intolerance, cold intolerance NEUROLOGIC: Absent: headache, focal weakness or paresthesias, dizziness, unsteady gait, seizure, mental status changes, bladder or bowel incontinence PSYCHIATRIC: Absent: anxiety, depression, suicidal or homicidal ideation, hallucinations. PHYSICAL EXAMINATION Vital Signs - 24 hr 03/25/19 03/25/19 03/25/19 17:12 17:14 17:48 Temperature 102.2 F H 102.2 F H Pulse Rate 128 H 122 H Pulse Rate [ 125 H Right Radial] Respiratory 16 19 Rate Blood Pressure 115/65 Blood Pressure 123/64 [Right Arm] O2 Sat by Pulse 93 L 98 92 L Oximetry (%) 03/25/19 03/26/19 03/26/19 20:48 00:19 04:23 Temperature 97.9 F Pulse Rate 91 H 71 Pulse Rate [ 90 80 Right Radial] Respiratory 12 14 16 Rate Blood Pressure 106/56 L Blood Pressure 130/82 101/51 L [Right Arm] O2 Sat by Pulse 96 98 98 Oximetry (%) 03/26/19 03/26/19 03/26/19 05:00 09:00 11:08 Temperature 96.4 F L Pulse Rate 89 Pulse Rate [ Right Radial] Respiratory 18 18 Rate Blood Pressure 120/50 L Blood Pressure [Right Arm] O2 Sat by Pulse 98 96 Oximetry (%) GENERAL: A&Ox3, no acute distress, skin appears warm EYES: PERRLA, EOMI ENT: Dry mucus membranes NECK: No JVD, no overt lymphadenopathy palpated LUNGS: CTA, no wheezes CHEST: R sided port noted without signs of infection BREAST: no nodules or masses palpated HEART: RRR, no murmurs ABDOMEN: Hard mass palpated in the suprapubic region that is tender to palpation , bowel sounds are present MUSCULOSKELETAL: No CVA Tenderness EXTREMITIES: 2+ pulses, no edema. NEUROLOGICAL: Cranial nerves II-XII intact. No focal deficits Laboratory Results - last 24 hr 03/25/19 03/25/19 03/25/19 17:42 17:42 17:42 WBC 2.2 L RBC 3.01 L Hgb 8.5 L Hct 25.6 L MCV 85.0 MCH 28.1 MCHC 33.1 RDW 16.0 H Plt Count 354 MPV 6.8 L Absolute Neuts (auto) 1.3 L Total Counted 100 Neutrophils % 61.1 D Neutrophils % (Manual) 65.3 Band Neutrophils % 6.1 Lymphocytes % 15.6 D Lymphocytes % (Manual) 9.2 D Monocytes % 21.5 H D Monocytes % (Manual) 16 H D Eosinophils % 1.2 Eosinophils % (Manual) 1.0 Basophils % 0.6 Basophils % (Manual) 0.0 Myelocytes % (Man) 0 Promyelocytes % (Man) 0 Blast Cells % (Manual) 0 Nucleated RBC % 0 Metamyelocytes 0 Hypochromia Platelet Estimate Normal Polychromasia 1+ Poikilocytosis Anisocytosis Microcytosis Macrocytosis PT with INR INR PTT (Actin FS) 30.5 VBG pH POC VBG pCO2 POC VBG pO2 VBG HCO3 VBG O2 Sat (Ariana) VBG Base Excess Sodium Potassium Chloride Carbon Dioxide Anion Gap BUN Creatinine Est GFR (CKD-EPI)AfAm Est GFR (CKD-EPI)NonAf POC Glucometer Random Glucose Lactic Acid Calcium Magnesium Total Bilirubin AST ALT Alkaline Phosphatase Troponin I < 0.02 Total Protein Albumin Total Amylase Lipase Urine Color Urine Appearance Urine pH Ur Specific [place] Urine Protein Urine Glucose (UA) Urine Ketones Urine Blood Urine Nitrite Urine Bilirubin Urine Urobilinogen Ur Leukocyte Esterase Urine WBC (Auto) Urine RBC (Auto) Urine Casts (Auto) U Epithel Cells (Auto) Urine Bacteria (Auto) Stool Occult Blood 03/25/19 03/25/1903/25/19 17:42 17:42 17:42 WBC RBC Hgb Hct MCV MCH MCHC RDW Plt Count MPV Absolute Neuts (auto) Total Counted Neutrophils % Neutrophils % (Manual) Band Neutrophils % Lymphocytes % Lymphocytes % (Manual) Monocytes % Monocytes % (Manual) Eosinophils % Eosinophils % (Manual) Basophils % Basophils % (Manual) Myelocytes % (Man) Promyelocytes % (Man) Blast Cells % (Manual) Nucleated RBC % Metamyelocytes Hypochromia Platelet Estimate Polychromasia Poikilocytosis Anisocytosis Microcytosis Macrocytosis PT with INR 14.40 H INR 1.22 H PTT (Actin FS) VBG pH POC VBG pCO2 POC VBG pO2 VBG HCO3 VBG O2 Sat (Ariana) VBG Base Excess Sodium 128 L Potassium 4.2 Chloride 91 L Carbon Dioxide 29 Anion Gap 9 BUN 7.6 Creatinine 0.5 L Est GFR (CKD-EPI)AfAm 108.20 Est GFR (CKD-EPI)NonAf 93.36 POC Glucometer Random Glucose 138 H Lactic Acid 0.6 Calcium 7.8 L Magnesium Total Bilirubin 0.3 AST 21 ALT 15 Alkaline Phosphatase 87 Troponin I Total Protein 5.5 L Albumin 2.0 L Total Amylase Lipase Urine Color Urine Appearance Urine pH Ur Specific [place] Urine Protein Urine Glucose (UA) Urine Ketones Urine Blood Urine Nitrite Urine Bilirubin Urine Urobilinogen Ur Leukocyte Esterase Urine WBC (Auto) Urine RBC (Auto) Urine Casts (Auto) U Epithel Cells (Auto) Urine Bacteria (Auto) Stool Occult Blood 03/25/19 03/25/19 03/26/19 17:42 17:56 00:30 WBC RBC Hgb Hct MCV MCH MCHC RDW Plt Count MPV Absolute Neuts (auto) Total Counted Neutrophils % Neutrophils % (Manual) Band Neutrophils % Lymphocytes % Lymphocytes % (Manual) Monocytes % Monocytes % (Manual) Eosinophils % Eosinophils % (Manual) Basophils % Basophils % (Manual) Myelocytes % (Man) Promyelocytes % (Man) Blast Cells % (Manual) Nucleated RBC % Metamyelocytes Hypochromia Platelet Estimate Polychromasia Poikilocytosis Anisocytosis Microcytosis Macrocytosis PT with INR INR PTT (Actin FS) VBG pH 7.48 H POC VBG pCO2 36.5 L POC VBG pO2 75.2 H VBG HCO3 26.7 VBG O2 Sat (Ariana) 95.2 H VBG Base Excess 3.4 H Sodium Potassium Chloride Carbon Dioxide Anion Gap BUN Creatinine Est GFR (CKD-EPI)AfAm Est GFR (CKD-EPI)NonAf POC Glucometer Random Glucose Lactic Acid Calcium Magnesium Total Bilirubin AST ALT Alkaline Phosphatase Troponin I Total Protein Albumin Total Amylase Lipase Urine Color Yellow Urine Appearance Cloudy Urine pH 7.0 Ur Specific [place] 1.005 L Urine Protein 1+ H Urine Glucose (UA) Negative Urine Ketones Negative Urine Blood Trace Urine Nitrite Negative Urine Bilirubin Negative Urine Urobilinogen 0.2 Ur Leukocyte Esterase 2+ H Urine WBC (Auto) 63 Urine RBC (Auto) 4 Urine Casts (Auto) 11 U Epithel Cells (Auto) 1.2 Urine Bacteria (Auto) 26.7 Stool Occult Blood Negative 03/26/19 03/26/19 03/26/19 03:51 07:05 07:05 WBC 2.2 L RBC 2.94 L Hgb 8.2 L Hct 25.1 L MCV 85.3 MCH 28.0 MCHC 32.8 RDW 15.8 H Plt Count 354 MPV 7.0 L Absolute Neuts (auto) 1.2 L Total Counted Neutrophils % 56.3 Neutrophils % (Manual) 55.1 Band Neutrophils % 5.1 Lymphocytes % 15.4 Lymphocytes % (Manual) 13.3 D Monocytes % 25.3 H Monocytes % (Manual) 22 H Eosinophils % 2.5 D Eosinophils % (Manual) 3.1 D Basophils % 0.5 Basophils % (Manual) 1.0 D Myelocytes % (Man) 0 Promyelocytes % (Man) 0 Blast Cells % (Manual) 0 Nucleated RBC % 0 Metamyelocytes 0 Hypochromia 0 Platelet Estimate Normal Polychromasia 0 Poikilocytosis 0 Anisocytosis 0 Microcytosis 0 Macrocytosis 0 PT with INR INR PTT (Actin FS) VBG pH POC VBG pCO2 POC VBG pO2 VBG HCO3 VBG O2 Sat (Ariana) VBG Base Excess Sodium 134 L Potassium 3.9 Chloride 99 Carbon Dioxide 28 Anion Gap 7 L BUN 5.8 L Creatinine 0.3 L Est GFR (CKD-EPI)AfAm 128.00 Est GFR (CKD-EPI)NonAf 110.44 POC Glucometer Random Glucose 91 Lactic Acid 0.8 Calcium 7.9 L Magnesium 2.0 Total Bilirubin AST ALT Alkaline Phosphatase Troponin I Total Protein Albumin Total Amylase 11 L Lipase 31 L Urine Color Urine Appearance Urine pH Ur Specific [place] Urine Protein Urine Glucose (UA) Urine Ketones Urine Blood Urine Nitrite Urine Bilirubin Urine Urobilinogen Ur Leukocyte Esterase Urine WBC (Auto) Urine RBC (Auto) Urine Casts (Auto) U Epithel Cells (Auto) Urine Bacteria (Auto) Stool Occult Blood 03/26/19 11:33 WBC RBC Hgb Hct MCV MCH MCHC RDW Plt Count MPV Absolute Neuts (auto) Total Counted Neutrophils % Neutrophils % (Manual) Band Neutrophils % Lymphocytes % Lymphocytes % (Manual) Monocytes % Monocytes % (Manual) Eosinophils % Eosinophils % (Manual) Basophils % Basophils % (Manual) Myelocytes % (Man) Promyelocytes % (Man) Blast Cells % (Manual) Nucleated RBC % Metamyelocytes Hypochromia Platelet Estimate Polychromasia Poikilocytosis Anisocytosis Microcytosis Macrocytosis PT with INR INR PTT (Actin FS) VBG pH POC VBG pCO2 POC VBG pO2 VBG HCO3 VBG O2 Sat (Ariana) VBG Base Excess Sodium Potassium Chloride Carbon Dioxide Anion Gap BUN Creatinine Est GFR (CKD-EPI)AfAm Est GFR (CKD-EPI)NonAf POC Glucometer 116 Random Glucose Lactic Acid Calcium Magnesium Total Bilirubin AST ALT Alkaline Phosphatase Troponin I Total Protein Albumin Total Amylase Lipase Urine Color Urine Appearance Urine pH Ur Specific [place] Urine Protein Urine Glucose (UA) Urine Ketones Urine Blood Urine Nitrite Urine Bilirubin Urine Urobilinogen Ur Leukocyte Esterase Urine WBC (Auto) Urine RBC (Auto) Urine Casts (Auto) U Epithel Cells (Auto) Urine Bacteria (Auto) Stool Occult Blood Active Medications Generic Name Dose Route Start Last Admin Trade Name Zandra PRN Reason Stop Dose Admin Acetaminophen 650 mg 03/26/19 00:27 03/26/19 08:50 Tylenol - PO 650 mg Q6H PRN Administration PAIN OR FEVER Enoxaparin Sodium 40 mg 03/26/19 10:00 03/26/19 10:07 Lovenox - SQ 40 mg DAILY LYNN Administration Piperacillin Sod/Tazobactam 50 mls @ 100 mls/hr 03/27/19 10:00 Sod 3.375 gm/ Dextrose IVPB Q8H-IV LYNN Protocol Piperacillin Sod/Tazobactam 50 mls @ 100 mls/hr 03/26/19 11:00 03/26/19 11:18 Sod 3.375 gm/ Dextrose IVPB 03/27/19 02:29 100 mls/hr Q8H-IV LYNN Administration Insulin Aspart 1 vial 03/26/19 11:00 03/26/19 11:38 Novolog Vial Sliding Scale - SQ Not Given ACHS LYNN Protocol ASSESSMENT/PLAN: 79 year old, northern irish-speaking female with a history of metastatic lung CA s/p immunotherapy/chemo (now on Abraxane) and palliative radiation, hyperlipidemia, diabetes mellitus, SIADH, chronic abdominal pain and frequent UTIs presented to the hospital after a mechanical fall without loss of consciousness, found to have sepsis 2/2 urinary tract infection #Anemia #Leukopenia #Sepsis #Metastatic Lung Ca #Anemia and Leukopenia: could be secondary to recent abraxane infusion on and myelosuppression, absolute neutrophil count 1200. This medication has been known to cause anemia and neutropenia in 50-80% of patients in the literature -will order reticulocyte count and iron studies, B12/folate -transfusion thresholds - transfuse if < 7 -consider granix -repeat CBC in AM #Metastatic Lung Ca: will f/u in the office #Sepsis: likely 2/2 urinary tract infection, pyuria noted on UA -follow cultures -volume resuscitation -abx zosyn, continue per ID Evelio Jones D.O., PGY-[address] Taylor ATTENDING PHYSICIAN STATEMENT I saw and evaluated the patient. I reviewed the resident's note and discussed the case with the resident. I agree with the resident's findings and plan as documented. SUBJECTIVE: OBJECTIVE: ASSESSMENT AND PLAN:
--- NOTE | 2019-03-26 15:39 | PN ---
Progress Note, Physician Chief Complaint: UTI Metastatic Lung CA History of Present Illness: Previous notes and events reviewed awake and alert NAD complain of dysuria and suprapubic pain - Current Medication List Current Medications: Active Medications Acetaminophen (Tylenol -) 650 mg PO Q6H PRN PRN Reason: PAIN OR FEVER Last Admin: 03/26/19 08:50 Dose: 650 mg Enoxaparin Sodium (Lovenox -) 40 mg SQ DAILY LYNN Last Admin: 03/26/19 10:07 Dose: 40 mg Piperacillin Sod/Tazobactam (Sod 3.375 gm/ Dextrose) 50 mls @ 100 mls/hr IVPB Q8H-IV LYNN; Protocol Piperacillin Sod/Tazobactam (Sod 3.375 gm/ Dextrose) 50 mls @ 100 mls/hr IVPB Q8H-IV LYNN Stop: 03/27/19 02:29 Last Admin: 03/26/19 11:18 Dose: 100 mls/hr Insulin Aspart (Novolog Vial Sliding Scale -) 1 vial SQ ACHS LYNN; Protocol Last Admin: 03/26/19 11:38 Dose: Not Given - Objective Vital Signs: Vital Signs Temperature 97.5 F L 03/26/19 13:34 Pulse Rate 76 03/26/19 13:34 Respiratory Rate 18 03/26/19 13:34 Blood Pressure 99/51 L 03/26/19 13:34 O2 Sat by Pulse Oximetry (%) 96 03/26/19 09:00 Constitutional: Yes: No Distress, Calm Eyes: Yes: Conjunctiva Clear HENT: Yes: Atraumatic Neck: Yes: Supple Cardiovascular: Yes: Regular Rate and Rhythm Respiratory: Yes: Regular, CTA Bilaterally Gastrointestinal: Yes: Normal Bowel Sounds, Soft, Tenderness (lower abdomen) Genitourinary: Yes: Incontinence Musculoskeletal: Yes: Muscle Weakness Extremities: Yes: WNL Edema: No Neurological: Yes: Alert, Pre-Existing Deficit, Weakness Psychiatric: Yes: Alert Labs: CBC, BMP 03/26/19 07:05 03/26/19 07:05 INR, PTT INR 1.22 (0.83-1.09) H 03/25/19 17:42 Problem List - Problems (1) Fever Assessment/Plan: -tylenol prn for temp >100F -UC and BC pending -CXR neg -ID on board -Zosyn Code(s): R50.9 - FEVER, UNSPECIFIED (2) Abdominal pain Assessment/Plan: -2/2 to abdominal wall mass Code(s): R10.9 - UNSPECIFIED ABDOMINAL PAIN (3) Diabetes Assessment/Plan: -Diabetic diet -ISS -BGM ACHS Code(s): E11.9 - TYPE 2 DIABETES MELLITUS WITHOUT COMPLICATIONS (4) HLD (hyperlipidemia) Code(s): E78.5 - HYPERLIPIDEMIA, UNSPECIFIED (5) Hyponatremia Assessment/Plan: -Na 134 -improved -monitor electrolyte daily Code(s): E87.1 - HYPO-OSMOLALITY AND HYPONATREMIA (6) Metastatic lung cancer (metastasis from lung to other site) Assessment/Plan: -Oncology on board Code(s): C34.90 - MALIGNANT NEOPLASM OF UNSP PART OF UNSP BRONCHUS OR LUNG Qualifiers: Laterality: left Qualified Code(s): C34.92 - Malignant neoplasm of unspecified part of left bronchus or lung (7) UTI (urinary tract infection) Assessment/Plan: -ID on board -no leukocytosis -UA shows 2+ leuks -UC pending -Zosyn Code(s): N39.0 - URINARY TRACT INFECTION, SITE NOT SPECIFIED (8) Frequent falls Assessment/Plan: -fall precaution -Head CT and Cervical Spine CT no acute pathology -PT Code(s): R29.6 - REPEATED FALLS (9) Anemia Assessment/Plan: -Hg 8.2 -monitor Hg daily -transfuse for Hg <8.0 Code(s): D64.9 - ANEMIA, UNSPECIFIED Assessment/Plan see problem list dvt ppx
--- NOTE | 2019-03-26 17:55 | CONS ---
DATE OF CONSULTATION: 03/26/2019 CONSULTATION REQUESTED BY: Reva Sadler MD HISTORY OF PRESENT ILLNESS: The patient is a 79-year-old woman with metastatic lung cancer. She is on KEYTRUDA which she received last week. She has a history of chronic diarrhea but she also appears to be on chronic laxatives per her medication list and is on chronic pain medication. She has chronic pelvic pain which appears related to an abdominal wall mass. She has frequent urinary tract infections. She developed fever after chemotherapy last week. She had a fall yesterday and came to the ER. She was found to have a fever of 102.2 in the ER. She had cultures sent and was started on Zosyn. She is leukopenic with an ANC of 1200. She had a recent admission to [facility] from March 10 to March 14, 2019 for a urinary tract infection. She grew a miller-sensitive Escherichia coli and was discharged on Keflex. She came in presenting with fever at home but during the admission, she never had fever in the hospital. She is status post recent KEYTRUDA last week. PAST MEDICAL HISTORY: Notable for hyperlipidemia, metastatic lung cancer, history of recurrent urinary tract infections, bony metastases. She also has soft tissue metastases in her abdominal wall. She is also status post radiation therapy. She has a history of sem-jzznest-rqsjixiis diabetes and SIADH. SOCIAL HISTORY: Former smoker. She stopped smoking in 2013. No history of substance use. FAMILY HISTORY: Notable for diabetes in her mother. Father of old age. HOME MEDICATIONS: Metformin, tramadol, senna, Crestor, Compazine, MiraLAX, Zofran, morphine, folic acid, Feosol, fentanyl and Colace. REVIEW OF SYSTEMS: As per HPI. PHYSICAL EXAMINATION: Vital Signs: She is afebrile. Temperature is 97.5. T-max was 102.2 in the ER. Blood pressure is 101/52, pulse is 73, respiratory rate is 16. HEENT: She is normocephalic. Her eyes are anicteric. Neck: Supple. Lungs: Clear to auscultation. Diminished breath sounds at the bases. Heart: Regular rate and rhythm. Abdomen: Soft. She has a firm soft tissue mass in her left lower quadrant. She has suprapubic discomfort. She has no CVA tenderness. She still has radiation varghese on her abdomen so I question whether she is still getting radiation. LABORATORY DATA: White count is 2.2, hemoglobin is 8.2, platelets are 354 with an ANC of 1.2. INR is 1.2, BUN and creatinine are 5 and 0.3. Liver function tests are normal. Urinalysis shows 2+ leukocytes and 63 white cells. Cultures are pending. She had a chest x-ray done on admission as well that shows no significant change from prior. No acute lung pathology. In summary, this is a 79-year-old woman with leukopenia with an ANC of 1200 and fever, metastatic lung cancer on KEYTRUDA. I would continue Zosyn for now for possible UTI. Would continue contact isolation given her prior history of Escherichia coli ESBL in the past. I am not sure if fever is infectious but would continue Zosyn pending cultures. ERNIE DE JESUS M.D. [id number]
[2019-03-27] MEDS ORDERED: PIPERACILLIN/TAZOBACTAM 3.375 GM VIAL IVPB ONE ×3 (01:44→18:07)
[2019-03-27] MEDS ORDERED: DEXTROSE 5%-WATER - 50 ML IVPB ONE ×3 (01:45→18:07)
[2019-03-27] MEDS: PIPERACILLIN/TAZOB 3.375 GM 3.375 GM in DEXTROSE 5%-WATER - 50 ML IVPB SCH ×3 (02:08→18:11)
[2019-03-27] MEDS: INSULIN SLIDING SCALE (NOVOLOG) 1 VIAL SQ SCH ×4 (06:07→21:43)
[2019-03-27] MEDS ORDERED: PT OWN MED DRAWER 7, Y5N ONE (06:46)
[2019-03-27 09:04] LABS: HEMATOCRIT 26.1 % (32.4-45.2); HEMOGLOBIN 8.7 GM/dL (10.7-15.3); MCH 28.5 pg (25.7-33.7); MCHC 33.5 g/dl (32.0-36.0); MEAN PLT VOLUME 6.9 fl (7.5-11.1); PLATELET COUNT 392 K/MM3 (134-434); RBC 3.07 M/mm3 (3.60-5.2); RDW 16.1 % (11.6-15.6); WHITE BLOOD COUNT 2.6 K/mm3 (4.0-10.0)
[2019-03-27 09:26] LABS: ALBUMIN 1.9 g/dl (3.4-5.0); BILIRUBIN,TOTAL 0.2 mg/dL (0.2-1); BLOOD UREA NITROGEN 4.6 mg/dL (7-18); CALCIUM 7.8 mg/dL (8.5-10.1); CREATININE 0.4 mg/dL (0.55-1.3); POTASSIUM 3.7 mmol/L (3.5-5.1); TOT PROT 5.2 g/dl (6.4-8.2)
[2019-03-27] MEDS: ENOXAPARIN NA (PORCINE) 40 MG/0.4 ML DISP.SYRIN SQ SCH (09:33)
[2019-03-27] MEDS: ACETAMINOPHEN 325 MG TABLET (FP) PO PRN (09:35)
--- NOTE | 2019-03-27 10:51 | PN ---
Progress Note, Physician Chief Complaint: UTI Metastatic Lung CA History of Present Illness: Previous notes and events reviewed awake and alert NAD complain of dysuria and suprapubic pain sts having episode of rectal bleeding during the night low grade fever during the night - Current Medication List Current Medications: Active Medications Acetaminophen (Tylenol -) 650 mg PO Q6H PRN PRN Reason: PAIN OR FEVER Last Admin: 03/27/19 09:35 Dose: 650 mg Enoxaparin Sodium (Lovenox -) 40 mg SQ DAILY LYNN Last Admin: 03/27/19 09:33 Dose: 40 mg Piperacillin Sod/Tazobactam (Sod 3.375 gm/ Dextrose) 50 mls @ 100 mls/hr IVPB Q8H-IV LYNN; Protocol Last Admin: 03/27/19 09:34 Dose: 100 mls/hr Insulin Aspart (Novolog Vial Sliding Scale -) 1 vial SQ ACHS LYNN; Protocol Last Admin: 03/27/19 06:07 Dose: Not Given - Objective Vital Signs: Vital Signs Temperature 99.4 F 03/26/19 21:49 Pulse Rate 84 03/26/19 21:49 Respiratory Rate 20 03/26/19 21:49 Blood Pressure 120/70 03/26/19 21:49 O2 Sat by Pulse Oximetry (%) 97 03/26/19 20:42 Constitutional: Yes: No Distress, Calm Eyes: Yes: Conjunctiva Clear HENT: Yes: Atraumatic Cardiovascular: Yes: Regular Rate and Rhythm Respiratory: Yes: Regular, CTA Bilaterally Gastrointestinal: Yes: Normal Bowel Sounds, Soft, Tenderness (lower abdomen) Genitourinary: Yes: Incontinence Musculoskeletal: Yes: Muscle Weakness Extremities: Yes: WNL Edema: No Neurological: Yes: Alert, Weakness Psychiatric: Yes: Alert Labs: CBC, BMP 03/27/19 08:05 03/27/19 08:05 INR, PTT INR 1.22 (0.83-1.09) H 03/25/19 17:42 Microbiology 03/25/19 17:56 Urine - Urine Clean Catch Urine Culture - Preliminary Non Lactose Fermenting Gnb Non Lactose Fermenting Gnb#2 03/25/19 18:25 Blood - Peripheral Venous Blood Culture - Preliminary NO GROWTH OBTAINED AFTER 24 HOURS, INCUBATION TO CONTINUE FOR 4 DAYS. 03/25/19 17:42 Blood - Peripheral Venous Blood Culture - Preliminary NO GROWTH OBTAINED AFTER 24 HOURS, INCUBATION TO CONTINUE FOR 4 DAYS. Problem List - Problems (1) Fever Assessment/Plan: -tylenol prn for temp >100F -UC and BC pending -CXR neg -ID on board -Zosyn Code(s): R50.9 - FEVER, UNSPECIFIED (2) Abdominal pain Assessment/Plan: -2/2 to abdominal wall mass -pain control Code(s): R10.9 - UNSPECIFIED ABDOMINAL PAIN (3) Diabetes Assessment/Plan: -Diabetic diet -ISS -BGM ACHS Code(s): E11.9 - TYPE 2 DIABETES MELLITUS WITHOUT COMPLICATIONS (4) HLD (hyperlipidemia) Assessment/Plan: -Crestor Code(s): E78.5 - HYPERLIPIDEMIA, UNSPECIFIED (5) Hyponatremia Assessment/Plan: -Na 135 -improved -monitor electrolyte daily Code(s): E87.1 - HYPO-OSMOLALITY AND HYPONATREMIA (6) Metastatic lung cancer (metastasis from lung to other site) Assessment/Plan: -Oncology on board Code(s): C34.90 - MALIGNANT NEOPLASM OF UNSP PART OF UNSP BRONCHUS OR LUNG Qualifiers: Laterality: left Qualified Code(s): C34.92 - Malignant neoplasm of unspecified part of left bronchus or lung (7) UTI (urinary tract infection) Assessment/Plan: -ID on board -no leukocytosis -UA shows 2+ leuks -UC prelim positive -Zosyn Code(s): N39.0 - URINARY TRACT INFECTION, SITE NOT SPECIFIED (8) Frequent falls Assessment/Plan: -fall precaution -Head CT and Cervical Spine CT no acute pathology -PT Code(s): R29.6 - REPEATED FALLS (9) Anemia Assessment/Plan: -Hg 8.7 -monitor Hg daily -transfuse for Hg <8.0 Code(s): D64.9 - ANEMIA, UNSPECIFIED Assessment/Plan see problem list dvt ppx
--- NOTE | 2019-03-27 14:21 | PN ---
Progress Note (short form) - Note Progress Note: laying in bed no fevers has abdominal pain Vital Signs Period Temp Pulse Resp BP Sys/Paulson Pulse Ox Last 24 Hr 98.5 F-99.4 F 73-84 20-20 118-123/56-70 96-97 cor-rrr lungs clear abd soft, +suprapubic pain +abdominal wall masses ext no edema CBC, BMP 03/27/19 08:05 03/27/19 08:05 Microbiology 03/25/19 17:56 Urine - Urine Clean Catch Urine Culture - Preliminary Non Lactose Fermenting Gnb Non Lactose Fermenting Gnb#2 03/25/19 18:25 Blood - Peripheral Venous Blood Culture - Preliminary NO GROWTH OBTAINED AFTER 24 HOURS, INCUBATION TO CONTINUE FOR 4 DAYS. 03/25/19 17:42 Blood - Peripheral Venous Blood Culture - Preliminary NO GROWTH OBTAINED AFTER 24 HOURS, INCUBATION TO CONTINUE FOR 4 DAYS. imp/reccd 79 yo female with metastatic lung cancer-on abraxane history of chronic diarrhea-but appears to be on chronic laxatives per med list chronic pelvic pain- appears related to abdominal wall masses, ?radiation cycsitis history of frequent UTIs developed fever after chemo last week s/p fall yesterday afebrile now cultures negative at [address] scan abd/pelvis will d/c antibiotics in am if she remains afebrile and cultures are negative continue contact isolation d/w dr [place] Problem List - Problems (1) Fever Code(s): R50.9 - FEVER, UNSPECIFIED (2) UTI (urinary tract infection) Code(s): N39.0 - URINARY TRACT INFECTION, SITE NOT SPECIFIED (3) Leukopenia Code(s): D72.819 - DECREASED WHITE BLOOD CELL COUNT, UNSPECIFIED (4) Metastatic adenocarcinoma Code(s): C79.9 - SECONDARY MALIGNANT NEOPLASM OF UNSPECIFIED SITE
[2019-03-28] MEDS ORDERED: DEXTROSE 5%-WATER - 50 ML IVPB ONE ×2 (01:33→09:14)
[2019-03-28] MEDS ORDERED: PIPERACILLIN/TAZOBACTAM 3.375 GM VIAL IVPB ONE ×2 (01:33→09:14)
[2019-03-28] MEDS: PIPERACILLIN/TAZOB 3.375 GM 3.375 GM in DEXTROSE 5%-WATER - 50 ML IVPB SCH ×2 (01:58→09:21)
--- NOTE | 2019-03-28 03:02 | CONSULT ---
Consult - text type - Consultation Consultation Note: PAtient well known to our service 79 y/o with metastatic lung cancer, s/p carbo/alimta/keytruda. Now on abraxane. s/p p alliative RT Comingin with failure to thrive/ lower abdominal pain Exam revealed LLQ abdominal wall masss/p RT C1d21 of abraxane lower abdominal discomfort --on epiric zosyn will check CT a/p failure to thrive pain control --morphine/fentanyl will follow
--- NOTE | 2019-03-28 03:20 | PN ---
Teaching Attending Note Name of Resident: Evelio Jones ATTENDING PHYSICIAN STATEMENT I saw and evaluated the patient. I reviewed the resident's note and discussed the case with the resident. I agree with the resident's findings and plan as documented. ASSESSMENT AND PLAN: 79 y/o with metastatic lung cancer, s/p carbo/alimta/keytruda. Now on abraxane. s/p p alliative RT Comingin with failure to thrive/ lower abdominal pain Exam revealed LLQ abdominal wall masss/p RT C1d21 of abraxane lower abdominal discomfort --on epiric zosyn will check CT a/p failure to thrive pain control --morphine/fentanyl will follow
[2019-03-28] MEDS ORDERED: FENTANYL PATCH WASTE MC PRN (03:21)
[2019-03-28] MEDS: fentaNYL 25mcg/hr PATCH.TD72 TD SCH (05:23)
[2019-03-28] MEDS: INSULIN SLIDING SCALE (NOVOLOG) 1 VIAL SQ SCH ×4 (06:17→21:23)
[2019-03-28] MEDS: morphine SULFATE IMMEDIATE RELEASE 30 MG TAB PO PRN (09:18)
[2019-03-28] MEDS: ENOXAPARIN NA (PORCINE) 40 MG/0.4 ML DISP.SYRIN SQ SCH (09:21)
[2019-03-28] MEDS: POLYETHYLENE GLYCOL 3350 119 GM BTL PO SCH (09:22)
[2019-03-28 09:35] LABS: HEMATOCRIT 26.8 % (32.4-45.2); HEMOGLOBIN 8.9 GM/dL (10.7-15.3); MCH 28.1 pg (25.7-33.7); MCHC 33.1 g/dl (32.0-36.0); MEAN CELL VOLUME 84.9 fl (80-96); MEAN PLT VOLUME 6.7 fl (7.5-11.1); PLATELET COUNT 456 K/MM3 (134-434); RBC 3.16 M/mm3 (3.60-5.2); RDW 16.2 % (11.6-15.6); WHITE BLOOD COUNT 3.5 K/mm3 (4.0-10.0)
[2019-03-28] MEDS ORDERED: ROSUVASTATIN CA 10 MG TABLET (FP) PO SCH (10:00)
--- NOTE | 2019-03-28 10:00 | PN ---
Progress Note (short form) - Note Progress Note: laying in bed no fevers has abdominal pain -persistent Vital Signs Period Temp Pulse Resp BP Sys/Paulson Pulse Ox Last 24 Hr 98.2 F-99.0 F 73-99 20-20 105-138/55-70 96-96 cor-rrr lungs decreased bs at bases abd no distention, diffuse lower abdominal discomfort, +palpable masses, + suprapubic discomfort ext no edema CBC, BMP 03/28/19 09:05 Microbiology 03/25/19 18:25 Blood - Peripheral Venous Blood Culture - Preliminary NO GROWTH OBTAINED AFTER 48 HOURS, INCUBATION TO CONTINUE FOR 3 DAYS. 03/25/19 17:42 Blood - Peripheral Venous Blood Culture - Preliminary NO GROWTH OBTAINED AFTER 48 HOURS, INCUBATION TO CONTINUE FOR 3 DAYS. 03/25/19 17:56 Urine - Urine Clean Catch Urine Culture - Preliminary Non Lactose Fermenting Gnb Non Lactose Fermenting Gnb#2 imp/reccd 79 yo female with metastatic lung cancer-on abraxane history of chronic diarrhea-but appears to be on chronic laxatives per med list chronic pelvic pain- appears related to abdominal wall masses, ?radiation cystitis history of frequent UTIs developed fever after chemo last week-resolved leukopenia improving remains afebrile ct scan abd/pelvis ordered continue contact isolation d/c zosyn Problem List - Problems (1) Fever Code(s): R50.9 - FEVER, UNSPECIFIED (2) UTI (urinary tract infection) Code(s): N39.0 - URINARY TRACT INFECTION, SITE NOT SPECIFIED (3) Leukopenia Code(s): D72.819 - DECREASED WHITE BLOOD CELL COUNT, UNSPECIFIED (4) Metastatic adenocarcinoma Code(s): C79.9 - SECONDARY MALIGNANT NEOPLASM OF UNSPECIFIED SITE
[2019-03-28 10:01] LABS: ALBUMIN 1.9 g/dl (3.4-5.0); BILIRUBIN,TOTAL 0.3 mg/dL (0.2-1); BLOOD UREA NITROGEN 3.7 mg/dL (7-18); CALCIUM 7.8 mg/dL (8.5-10.1); CREATININE 0.4 mg/dL (0.55-1.3); POTASSIUM 3.5 mmol/L (3.5-5.1); TOT PROT 5.3 g/dl (6.4-8.2)
--- NOTE | 2019-03-28 12:47 | PN ---
Progress Note, Physician Chief Complaint: patient seen and examined - Current Medication List Current Medications: Active Medications Acetaminophen (Tylenol -) 650 mg PO Q6H PRN PRN Reason: PAIN OR FEVER Last Admin: 03/27/19 09:35 Dose: 650 mg Enoxaparin Sodium (Lovenox -) 40 mg SQ DAILY [facility] Last Admin: 03/28/19 09:21 Dose: 40 mg Fentanyl (Duragesic 25mcg Patch -) 1 patch TD Q72H [facility] Stop: 04/04/19 03:21 Last Admin: 03/28/19 05:23 Dose: 1 patch Insulin Aspart (Novolog Vial Sliding Scale -) 1 vial SQ ACHS [facility]; Protocol Last Admin: 03/28/19 11:49 Dose: Not Given Miscellaneous (Duragesic Patch Waste) 1 each MC PRN PRN PRN Reason: PAIN Morphine Sulfate (Msir -) 15 mg PO Q6H PRN PRN Reason: PAIN LEVEL 4 - 6 Last Admin: 03/28/19 09:18 Dose: 15 mg Polyethylene Glycol (Miralax (For Daily Use) -) 17 gm PO DAILY [facility] Last Admin: 03/28/19 09:22 Dose: Not Given Rosuvastatin Calcium (Crestor -) 5 mg PO DAILY [facility] Last Admin: 03/28/19 09:23 Dose: Not Given Tramadol HCl (Ultram -) 50 mg PO Q8H PRN PRN Reason: PAIN - Objective Vital Signs: Vital Signs Temperature 99.0 F 03/28/19 05:53 Pulse Rate 99 H 03/28/19 05:53 Respiratory Rate 20 03/28/19 05:53 Blood Pressure 120/67 03/28/19 05:53 O2 Sat by Pulse Oximetry (%) 96 03/27/19 21:00 Constitutional: Yes: Calm Cardiovascular: Yes: Regular Rate and Rhythm, S1, S2 Respiratory: Yes: CTA Bilaterally Gastrointestinal: Yes: Other (firm palpable mass suprapubic tenderness) Edema: No Neurological: Yes: Alert Labs: CBC, BMP 03/28/19 09:05 03/28/19 09:05 INR, PTT INR 1.22 (0.83-1.09) H 03/25/19 17:42 Problem List - Problems (1) Abdominal pain Assessment/Plan: ct scan pending pain control oncology on board Code(s): R10.9 - UNSPECIFIED ABDOMINAL PAIN
[2019-03-28] MEDS: traMADol HCL 50 MG TABLET PO PRN (13:06)
[2019-03-28] MEDS ORDERED: INSULIN (NOVOLOG) ASPART 100 UNITS/ML 10ML VIAL ONE (20:23)
[2019-03-28] MEDS ORDERED: AMINO ACIDS 4.25%/D5W 1,000 ML IV SCH (20:45)
[2019-03-28] MEDS: SODIUM CHLORIDE 1,000 ML IV SCH (20:49)
[2019-03-29] MEDS: INSULIN SLIDING SCALE (NOVOLOG) 1 VIAL SQ SCH ×3 (07:34→21:14)
[2019-03-29] MEDS ORDERED: PT OWN MED DRAWER 7, Y5N ONE (08:50)
[2019-03-29] MEDS ORDERED: PIPERACILLIN/TAZOBACTAM 3.375 GM VIAL IVPB ONE ×3 (10:29→16:54)
[2019-03-29] MEDS ORDERED: DEXTROSE 5%-WATER - 50 ML IVPB ONE ×3 (10:30→16:55)
[2019-03-29 10:31] LABS: BASO % 0.9 % (0-2.0); EOS % 2.4 % (0-4.5); HEMATOCRIT 26.9 % (32.4-45.2); HEMOGLOBIN 8.7 GM/dL (10.7-15.3); LYMPH % 20.6 % (8-40); MCH 27.9 pg (25.7-33.7); MCHC 32.5 g/dl (32.0-36.0); MEAN CELL VOLUME 85.9 fl (80-96); MEAN PLT VOLUME 6.7 fl (7.5-11.1); MONO % 20.6 % (3.8-10.2); NEUT % 55.5 % (42.8-82.8); PLATELET COUNT 490 K/MM3 (134-434); RBC 3.13 M/mm3 (3.60-5.2); RDW 16.5 % (11.6-15.6); WHITE BLOOD COUNT 3.8 K/mm3 (4.0-10.0)
[2019-03-29] MEDS: ROSUVASTATIN CA 5 MG TABLET (FP) PO SCH (10:39)
[2019-03-29] MEDS: ENOXAPARIN NA (PORCINE) 40 MG/0.4 ML DISP.SYRIN SQ SCH (10:39)
[2019-03-29] MEDS: POLYETHYLENE GLYCOL 3350 119 GM BTL PO SCH (10:45)
[2019-03-29 10:53] LABS: ALBUMIN 1.8 g/dl (3.4-5.0); BILIRUBIN,TOTAL 0.2 mg/dL (0.2-1); BLOOD UREA NITROGEN 3.1 mg/dL (7-18); CALCIUM 7.8 mg/dL (8.5-10.1); CREATININE 0.4 mg/dL (0.55-1.3); POTASSIUM 3.9 mmol/L (3.5-5.1)
[2019-03-29] MEDS: PIPERACILLIN/TAZOB 3.375 GM 3.375 GM in DEXTROSE 5%-WATER - 50 ML IVPB SCH ×2 (11:00→17:01)
--- NOTE | 2019-03-29 11:02 | PN ---
Progress Note (short form) - Note Progress Note: laying in bed no fevers has abdominal pain -persistent unchanged diarrhea this am but she had oral contrast yesterday Vital Signs Period Temp Pulse Resp BP Sys/Paulson Pulse Ox Last 24 Hr 97.6 F-98.7 F 80-102 18-20 110-136/60-74 96 cor-rrr lungs clear abd soft,diffuse lower abdominal pain ext no edema ct scan with protocolitis with 2 pelvic abscesses, bladder wall thickening, increased size of the left anterior wall pelvic mass CBC, BMP 03/29/19 09:45 03/29/19 09:45 Microbiology 03/25/19 18:25 Blood - Peripheral Venous Blood Culture - Preliminary NO GROWTH OBTAINED AFTER 72 HOURS, INCUBATION TO CONTINUE FOR 2 DAYS. 03/25/19 17:42 Blood - Peripheral Venous Blood Culture - Preliminary NO GROWTH OBTAINED AFTER 72 HOURS, INCUBATION TO CONTINUE FOR 2 DAYS. 03/25/19 17:56 Urine - Urine Clean Catch Urine Culture - Final Escherichia Coli Enterobacter Cloacae Current Medications Acetaminophen (Tylenol -) 650 mg PO Q6H PRN PRN Reason: PAIN OR FEVER Last Admin: 03/27/19 09:35 Dose: 650 mg Enoxaparin Sodium (Lovenox -) 40 mg SQ DAILY [facility] Last Admin: 03/29/19 10:39 Dose: 40 mg Fentanyl (Duragesic 25mcg Patch -) 1 patch TD Q72H [facility] Stop: 04/04/19 03:21 Last Admin: 03/28/19 05:23 Dose: 1 patch Sodium Chloride (Normal Saline -) 1,000 mls @ 42 mls/hr IV ASDIR [facility] Last Admin: 03/28/19 20:49 Dose: 42 mls/hr Metronidazole (Flagyl 500mg Premixed Ivpb -) 500 mg in 100 mls @ 100 mls/hr IVPB Q8H-IV [facility] Last Admin: 03/29/19 10:39 Dose: 100 mls/hr Piperacillin Sod/Tazobactam (Sod 3.375 gm/ Dextrose) 50 mls @ 100 mls/hr IVPB Q8H-IV [facility]; Protocol Insulin Aspart (Novolog Vial Sliding Scale -) 1 vial SQ ACHS [facility]; Protocol Last Admin: 03/29/19 07:34 Dose: Not Given Miscellaneous (Duragesic Patch Waste) 1 each MC PRN PRN PRN Reason: PAIN Morphine Sulfate (Msir -) 15 mg PO Q6H PRN PRN Reason: PAIN LEVEL 4 - 6 Last Admin: 03/28/19 09:18 Dose: 15 mg Polyethylene Glycol (Miralax (For Daily Use) -) 17 gm PO DAILY [facility] Last Admin: 03/29/19 10:45 Dose: Not Given Rosuvastatin Calcium (Crestor -) 5 mg PO DAILY [facility] Last Admin: 03/29/19 10:39 Dose: 5 mg Tramadol HCl (Ultram -) 50 mg PO Q8H PRN PRN Reason: PAIN Last Admin: 03/28/19 13:06 Dose: 50 mg imp/reccd 79 yo female with metastatic lung cancer-on abraxane ct scan findings noted-proctocolitis with pelvic abscesses- resume zosyn and flagyl ?IR drainage of abscesses GI evaluation requested continue contact isolation overall prognosis is poor stool cdiff if diarrhea persists d/w dr claros Problem List - Problems (1) Fever Code(s): R50.9 - FEVER, UNSPECIFIED (2) UTI (urinary tract infection) Code(s): N39.0 - URINARY TRACT INFECTION, SITE NOT SPECIFIED (3) Leukopenia Code(s): D72.819 - DECREASED WHITE BLOOD CELL COUNT, UNSPECIFIED (4) Metastatic adenocarcinoma Code(s): C79.9 - SECONDARY MALIGNANT NEOPLASM OF UNSPECIFIED SITE
--- NOTE | 2019-03-29 11:28 | PN ---
Progress Note, Physician - Current Medication List Current Medications: Active Medications Acetaminophen (Tylenol -) 650 mg PO Q6H PRN PRN Reason: PAIN OR FEVER Last Admin: 03/27/19 09:35 Dose: 650 mg Enoxaparin Sodium (Lovenox -) 40 mg SQ DAILY [facility] Last Admin: 03/29/19 10:39 Dose: 40 mg Fentanyl (Duragesic 25mcg Patch -) 1 patch TD Q72H [facility] Stop: 04/04/19 03:21 Last Admin: 03/28/19 05:23 Dose: 1 patch Sodium Chloride (Normal Saline -) 1,000 mls @ 42 mls/hr IV ASDIR [facility] Last Admin: 03/28/19 20:49 Dose: 42 mls/hr Metronidazole (Flagyl 500mg Premixed Ivpb -) 500 mg in 100 mls @ 100 mls/hr IVPB Q8H-IV [facility] Last Admin: 03/29/19 10:39 Dose: 100 mls/hr Piperacillin Sod/Tazobactam (Sod 3.375 gm/ Dextrose) 50 mls @ 100 mls/hr IVPB Q8H-IV [facility]; Protocol Insulin Aspart (Novolog Vial Sliding Scale -) 1 vial SQ ACHS [facility]; Protocol Last Admin: 03/29/19 07:34 Dose: Not Given Miscellaneous (Duragesic Patch Waste) 1 each MC PRN PRN PRN Reason: PAIN Morphine Sulfate (Msir -) 15 mg PO Q6H PRN PRN Reason: PAIN LEVEL 4 - 6 Last Admin: 03/28/19 09:18 Dose: 15 mg Polyethylene Glycol (Miralax (For Daily Use) -) 17 gm PO DAILY [facility] Last Admin: 03/29/19 10:45 Dose: Not Given Rosuvastatin Calcium (Crestor -) 5 mg PO DAILY [facility] Last Admin: 03/29/19 10:39 Dose: 5 mg Tramadol HCl (Ultram -) 50 mg PO Q8H PRN PRN Reason: PAIN Last Admin: 03/28/19 13:06 Dose: 50 mg - Objective Vital Signs: Vital Signs Temperature 98.4 F 03/29/19 08:17 Pulse Rate 80 03/29/19 08:17 Respiratory Rate 20 03/29/19 08:17 Blood Pressure 120/70 03/29/19 08:17 O2 Sat by Pulse Oximetry (%) 96 03/28/19 21:00 Cardiovascular: Yes: S1, S2 Respiratory: Yes: Regular, CTA Bilaterally Gastrointestinal: Yes: Normal Bowel Sounds, Soft, Tenderness Labs: CBC, BMP 03/29/19 09:45 03/29/19 09:45 INR, PTT INR 1.22 (0.83-1.09) H 03/25/19 17:42 Problem List - Problems (1) Proctocolitis with complication Assessment/Plan: -tylenol prn for temp >100F -GI consult -ID on board -Zosyn -also with abdominal wall mass -pain control Code(s): R10.9 - UNSPECIFIED ABDOMINAL PAIN Code(s): K52.9 - NONINFECTIVE GASTROENTERITIS AND COLITIS, UNSPECIFIED (2) Diabetes Assessment/Plan: -Diabetic diet -ISS -BGM ACHS Code(s): E11.9 - TYPE 2 DIABETES MELLITUS WITHOUT COMPLICATIONS Qualifiers: Diabetes mellitus type: type 2 (3) Frequent falls Assessment/Plan: -fall precaution -Head CT and Cervical Spine CT no acute pathology -PT Code(s): R29.6 - REPEATED FALLS (4) Metastatic adenocarcinoma Assessment/Plan: -Oncology on board Code(s): C79.9 - SECONDARY MALIGNANT NEOPLASM OF UNSPECIFIED SITE (5) UTI (urinary tract infection) Assessment/Plan: -UC and BC pending Code(s): N39.0 - URINARY TRACT INFECTION, SITE NOT SPECIFIED
[2019-03-29] MEDS: morphine SULFATE IMMEDIATE RELEASE 30 MG TAB PO PRN ×2 (12:49→18:36)
--- NOTE | 2019-03-29 13:12 | CON.GI ---
Consult Consult Specialty:: Gastroenterology ( covering Dr Braswell) Referred by:: Dr Sadler Reason for Consultation:: Abdominal pain - History of Present Illness Chief Complaint: lower abdominal pain and loose stools History of Present Illness: 79F is admitted with lower abdominal pain and loose stools. The history is obtained with he brother and nephew serving as Lithuanian interpreters. She reports that Dr Braswell is her field services director and that he did a colonoscopy about a year ago but she cannot recall the results. [facility] reveals that Dr Braswell saw her here in 11/07 for a diverticular abscess that required IT drainage. Her CT now reveals abscess recurrence in the mid ( 3 x 2cm) and lower ( 1.5 x 1.7cm) sigmoid colon. Ascending colon bowel wall thickening is also noted. She reports having had a procedure to remove something from her LUQ at [facility] about a year ago but cannot specify. She does have a short transverse LUQ healed incision. She was diagnosed with adenocarcinoma on needle biopsy in 08/10 and is undergoing RT and Keytruda therapies. She has chronic diarrhea and does admit to recent antibiotic exposures. - History Source History Provided By: Patient Limitations to Obtaining History: Language Barrier - Past Medical History Cardio/Vascular: Yes: HTN, Hyperlipdemia Pulmonary: Yes: Cancer (Metastatic adenocarcinoma dx'ed 08/10) Gastrointestinal: Yes: Diverticulitis (with abscess required IR drainage 11/07), Diverticulosis Renal/: Yes: UTI Heme/Onc: Yes: Cancer (lung adenocarcinoma), Current Chemotherapy (Keytruda), Current Radiation Therapy Musculoskeletal: Yes: Other (Bony Metastases (s/p RT)) Endocrine: Yes: Diabetes Mellitus, SIADH - Past Surgical History Past Surgical History: Yes: Colonoscopy Additional Surgical History: LUQ abdominal incision for ? procedure at [facility] about 1 year ago - Alcohol/Substance Use Hx Alcohol Use: No History of Substance Use: reports: None - Smoking History Smoking history: Former smoker Have you smoked in the past 12 months: No If you are a former smoker, when did you quit?: 2013 - Social History Usual Living Arrangement: Alone ADL: Independent Occupation: [employer] Place of : Other ([place]) Came to [place] (year): age 47 History of Recent Travel: No Home Medications - Allergies Allergies/Adverse Reactions: Allergies Allergy/AdvReac Type Severity Reaction Status Date / Time No Known Allergies Allergy Verified 03/10/19 18:01 - Home Medications Home Medications: Ambulatory Orders Rosuvastatin [Crestor -] 10 mg PO DAILY 07/25/18 metFORMIN HCL [Metformin ER Osmotic] 500 mg PO BIDAC 07/25/18 Docusate Sodium [Colace -] 100 mg PO TID #90 capsule 07/31/18 Folic Acid - 1 mg PO DAILY #30 tablet 07/31/18 Sennosides [Senna -] 2 tab PO HS #60 tablet 07/31/18 Ondansetron HCl [Zofran] 8 mg PO QID PRN 01/30/19 Prochlorperazine Maleate [Compazine] 10 mg PO TID PRN 01/30/19 Ferrous Sulfate [Feosol] 325 mg PO DAILY #30 ud 02/06/19 Polyethylene Glycol 3350 [Miralax 119 gm Btl -] 17 gm PO DAILY #1 bottle Sennosides [Senna -] 2 tab PO HS #60 tablet 02/06/19 FENTANYL 25mcg PATCH [DURAGESIC 25mcg PATCH -] 25 mcg PO 03/11/19 Morphine Sulfate 15 mg PO QID 03/11/19 Cephalexin Monohydrate [Keflex -] 500 mg PO BID #14 capsule 03/14/19 FENTANYL 25mcg PATCH [DURAGESIC 25mcg PATCH -] 1 patch TD Q72H #10 patch MDD 1 03/14/19 Morphine *Immediate Release* [Msir -] 15 mg PO Q6H PRN #20 tab MDD 4 03/14/19 Naph,Mb-Db/K pH,Mbdb [PHOS-NaK PACKET -] 1 packet PO TID #10 pow 03/14/19 Tramadol HCl 50 mg PO Q8H PRN #15 tablet MDD 3 03/14/19 Family Disease History - Family Disease History Family Disease History: Diabetes: Mother (), Other: Father (- old age), Sister (alive and well), Son (alive and well) Review of Systems - Review of Systems Constitutional: reports: Loss of Appetite, Unintentional Wgt. Loss, Weakness Eyes: reports: No Symptoms HENT: reports: No Symptoms Neck: reports: No Symptoms Cardiovascular: reports: No Symptoms Respiratory: reports: Cough, SOB on Exertion Gastrointestinal: reports: Abdominal Pain, Bloating, Diarrhea Physical Exam-GI Vital Signs: Vital Signs Temperature 98.4 F 03/29/19 08:17 Pulse Rate 80 03/29/19 08:17 Respiratory Rate 20 03/29/19 08:17 Blood Pressure 120/70 03/29/19 08:17 O2 Sat by Pulse Oximetry (%) 96 03/28/19 21:00 CBC,CMP WBC 3.8 K/mm3 (4.0-10.0) L 03/29/19 09:45 RBC 3.13 M/mm3 (3.60-5.2) L 03/29/19 09:45 Hgb 8.7 GM/dL (10.7-15.3) L 03/29/19 09:45 Hct 26.9 % (32.4-45.2) L 03/29/19 09:45 MCV 85.9 fl (80-96) 03/29/19 09:45 MCH 27.9 pg (25.7-33.7) 03/29/19 09:45 MCHC 32.5 g/dl (32.0-36.0) 03/29/19 09:45 RDW 16.5 % (11.6-15.6) H 03/29/19 09:45 Plt Count 490 K/MM3 (134-434) H 03/29/19 09:45 MPV 6.7 fl (7.5-11.1) L 03/29/19 09:45 Absolute Neuts (auto) 2.1 K/mm3 (1.5-8.0) 03/29/19 09:45 Total Counted 100 03/25/19 17:42 Neutrophils % 55.5 % (42.8-82.8) 03/29/19 09:45 Neutrophils % (Manual) 55.1 % (42.8-82.8) 03/26/19 07:05 Band Neutrophils % 5.1 % 03/26/19 07:05 Lymphocytes % 20.6 % (8-40) D 03/29/19 09:45 Lymphocytes % (Manual) 13.3 % (8-40) D 03/26/19 07:05 Monocytes % 20.6 % (3.8-10.2) H 03/29/19 09:45 Monocytes % (Manual) 22 % (3.8-10.2) H 03/26/19 07:05 Eosinophils % 2.4 % (0-4.5) 03/29/19 09:45 Eosinophils % (Manual) 3.1 % (0-4.5) D 03/26/19 07:05 Basophils % 0.9 % (0-2.0) 03/29/19 09:45 Basophils % (Manual) 1.0 % (0-2.0) D 03/26/19 07:05 Myelocytes % (Man) 0 % (0-2) 03/26/19 07:05 Promyelocytes % (Man) 0 % (0-2) 03/26/19 07:05 Blast Cells % (Manual) 0 % (0-0) 03/26/19 07:05 Nucleated RBC % 0 % (0-0) 03/29/19 09:45 Metamyelocytes 0 % (0-2) 03/26/19 07:05 Hypochromia 0 03/26/19 07:05 Platelet Estimate Normal 03/26/19 07:05 Polychromasia 0 03/26/19 07:05 Poikilocytosis 0 03/26/19 07:05 Anisocytosis 0 03/26/19 07:05 Microcytosis 0 03/26/19 07:05 Macrocytosis 0 03/26/19 07:05 Sodium 133 mmol/L (136-145) L 03/29/19 09:45 Potassium 3.9 mmol/L (3.5-5.1) 03/29/19 09:45 Chloride 99 mmol/L (98-107) 03/29/19 09:45 Carbon Dioxide 31 mmol/L (21-32) 03/29/19 09:45 Anion Gap 3 MMOL/L (8-16) L 03/29/19 09:45 BUN 3.1 mg/dL (7-18) L 03/29/19 09:45 Creatinine 0.4 mg/dL (0.55-1.3) L 03/29/19 09:45 Est GFR (CKD-EPI)AfAm 116.44 03/29/19 09:45 Est GFR (CKD-EPI)NonAf 100.47 03/29/19 09:45 POC Glucometer 86 UNITS (80-120) 03/29/19 05:52 Random Glucose 79 mg/dL (74-106) 03/29/19 09:45 Lactic Acid 0.8 mmol/L (0.4-2.0) 03/26/19 03:51 Calcium 7.8 mg/dL (8.5-10.1) L 03/29/19 09:45 Magnesium 2.0 mg/dL (1.8-2.4) 03/26/19 07:05 Total Bilirubin 0.2 mg/dL (0.2-1) 03/29/19 09:45 AST 23 U/L (15-37) 03/29/19 09:45 ALT 14 U/L (13-61) 03/29/19 09:45 Alkaline Phosphatase 115 U/L (45-117) 03/29/19 09:45 Troponin I < 0.02 ng/ml (0.00-0.05) 03/25/19 17:42 Total Protein 5.0 g/dl (6.4-8.2) L 03/29/19 09:45 Albumin 1.8 g/dl (3.4-5.0) L 03/29/19 09:45 Total Amylase 11 U/L (25-115) L 03/26/19 07:05 Lipase 31 U/L (73-393) L 03/26/19 07:05 Current Medications Generic Name Dose Route Start Last Admin Trade Name Zandra PRN Reason Stop Dose Admin Acetaminophen 650 mg 03/26/19 00:27 03/27/19 09:35 Tylenol - PO 650 mg Q6H PRN Administration PAIN OR FEVER Enoxaparin Sodium 40 mg 03/26/19 10:00 03/29/19 10:39 Lovenox - SQ 40 mg DAILY LYNN Administration Fentanyl 1 patch 03/28/19 03:30 03/28/19 05:23 Duragesic 25mcg Patch - TD 04/04/19 03:21 1 patch Q72H LYNN Administration Sodium Chloride 1,000 mls @ 42 mls/hr 03/28/19 20:45 03/28/19 20:49 Normal Saline - IV 42 mls/hr ASDIR LYNN Administration Metronidazole 500 mg in 100 mls @ 100 mls/hr 03/29/19 10:00 03/29/19 10:39 Flagyl 500mg Premixed Ivpb - IVPB 100 mls/hr Q8H-IV LYNN Administration Piperacillin Sod/Tazobactam 50 mls @ 100 mls/hr 03/29/19 10:00 03/29/19 11:00 Sod 3.375 gm/ Dextrose IVPB 100 mls/hr Q8H-IV LYNN Administration Protocol Insulin Aspart 1 vial 03/26/19 11:00 03/29/19 07:34 Novolog Vial Sliding Scale - SQ Not Given ACHS LYNN Protocol Miscellaneous 1 each 03/28/19 03:21 Duragesic Patch Waste MC PRN PRN PAIN Morphine Sulfate 15 mg 03/27/19 10:55 03/29/19 12:49 Msir - PO 15 mg Q6H PRN Administration PAIN LEVEL 4 - 6 Polyethylene Glycol 17 gm 03/28/19 10:00 03/29/19 10:45 Miralax (For Daily Use) - PO Not Given DAILY LYNN Rosuvastatin Calcium 5 mg 03/29/19 09:11 03/29/19 10:39 Crestor - PO 5 mg DAILY LYNN Administration Tramadol HCl 50 mg 03/27/19 10:55 03/28/19 13:06 Ultram - PO 50 mg Q8H PRN Administration PAIN Constitutional: Yes: Anxious Eyes: Yes: Conjunctiva Clear HENT: Yes: Normocephalic Neck: Yes: Supple Cardiovascular: Yes: Regular Rate and Rhythm Respiratory: Yes: CTA Bilaterally Gastrointestinal Inspection: Yes: Scars (healed short transverse LUQ incision) ...Auscultate: Yes: Hypoactive Bowel Sounds ...Palpate: Yes: Tenderness (suprapubic and LLQ) ...Rectal Exam: Yes: Guaiac Positive (smudge of bloody stool, no rectal mass) Edema: No Neurological: Yes: Alert, Oriented Labs: CBC, BMP 03/29/19 09:45 03/29/19 09:45 INR, PTT INR 1.22 (0.83-1.09) H 03/25/19 17:42 Imaging - Results Cat Scan: Report Reviewed ( Final Report CT ABDOMEN & PELVIS CT WITH CONTR Show Printer-Friendly Version Patient Name: Micheline Schmidt : Jan-1940 ID: [id number] Study Date: 28-Mar-2019 16:10 Danelle Maddox Name: MICHELINE SCHMIDT DEPARTMENT OF RADIOLOGY Phys: Usha Pollack MD : 1940 Age: 79 Sex: F [facility] Acct: [id number] Loc: [id number] [facility] Exam Date: 03/28/19 Status: ADM IN [place] [id number] Unit Number: [id number] EXAM#: TYPE/EXAM: RESULT: CT/ABDOMEN PELVIS CT WITH CONTR Abdomen and pelvis CT with intravenous and oral contrast Clinical information given: ? abscess Multiplanar imaging was performed utilizing intravenous as well as oral contrast. In comparison to a prior CT study of 12/23/2018 interval development of concentric wall edema is seen involving the rectum and sigmoid colon and possibly also the ascending colon consistent with infectious/inflammatory change. Associated development of a 3 x 2 cm pericolonic abscess is noted along the left lateral border of the mid sigmoid colon (transaxial images 90 - 97). A second smaller abscess is visualized along the left lateral border of the lower third of the sigmoid colon measuring 1.7 x 1.5 cm (transaxial images 93 - 97). Note is also made of development of diffuse urinary bladder wall thickening suggestive of acute cystitis. No evidence of pneumoperitoneum, ascites or bowel obstruction. Interval enlargement of a focal lesion is seen within the left lower anterior pelvic wall currently measuring 3.7 x 2.1 cm, previously 3 x 2 cm. A focal infiltrate with associated bronchiectasis is noted within the medial basal segment of the right lower lobe. This finding may have been present on the previous exam allowing for different levels of coverage. The liver, spleen, pancreas, gallbladder, adrenal glands and kidneys demonstrate no discrete abnormality. There is no aortic aneurysm. No definite lymphadenopathy is identified. Colonic diverticulosis. 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 IMPRESSION: In comparison to a CT exam of 12/23/2018 interval development of concentric wall thickening is noted involving the rectosigmoid colon and possibly also the ascending colon consistent with acute proctocolitis. Associated development of a 3 x 2 cm and 1.7 x 1.5 cm paracolic abscesses is noted along the left lateral border of the sigmoid colon. Development of diffuse urinary bladder wall thickening is seen suggestive of acute cystitis - ? reactive in nature secondary to the previously described adjacent proctocolitis. Mildly increased size of a focal mass lesion is noted within the left lower anterior pelvic wall. 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 Reported By: Vik Hickman MD 03/29/1932 Technologist: Melchor Marcos Transcribed Date/ Time: 03/29/1934 [employer] Server: Vik Hickman Printed Date/Time: By: Signed by: Vik Hickman Signed on: 29-Mar-2019 00:36) Problem List - Problems (1) Abdominal fluid collection Assessment/Plan: Micheline's pain and fever as well as her bleeding appears to reflect recurrent diverticular abscesses. Will order IR drainage. Code(s): R18.8 - OTHER ASCITES (2) Abdominal pain Code(s): R10.9 - UNSPECIFIED ABDOMINAL PAIN (3) Diarrhea Code(s): R19.7 - DIARRHEA, UNSPECIFIED (4) GI (gastrointestinal bleed) Code(s): K92.2 - GASTROINTESTINAL HEMORRHAGE, UNSPECIFIED (5) Anemia Code(s): D64.9 - ANEMIA, UNSPECIFIED (6) Diabetes Code(s): E11.9 - TYPE 2 DIABETES MELLITUS WITHOUT COMPLICATIONS Qualifiers: Diabetes mellitus type: type 2 (7) History of diverticular abscess of colon Code(s): Z87.19 - PERSONAL HISTORY OF OTHER DISEASES OF THE DIGESTIVE SYSTEM (8) Metastatic adenocarcinoma Code(s): C79.9 - SECONDARY MALIGNANT NEOPLASM OF UNSPECIFIED SITE (9) Metastatic lung cancer (metastasis from lung to other site) Code(s): C34.90 - MALIGNANT NEOPLASM OF UNSP PART OF UNSP BRONCHUS OR LUNG Qualifiers: Laterality: left Qualified Code(s): C34.92 - Malignant neoplasm of unspecified part of left bronchus or lung Assessment/Plan Assessment: - Micheline's pain and fever as well as her bleeding appears to reflect recurrent diverticular abscesses. Plan: -- Will order IR drainage. -- Antibiotics already started by Dr Cohen - Dr Braswell will return 03/31 and assume her GI care. He may know what procedure was done at [facility]
[2019-03-29 13:41] LABS: PLATELET ESTIMATE ADEQUATE
[2019-03-29] MEDS: SODIUM CHLORIDE 1,000 ML IV SCH ×2 (17:01→20:45)
--- NOTE | 2019-03-29 22:33 | PN ---
Progress Note, Physician History of Present Illness: No new events. Endorses mild abdominal pain. - Current Medication List Current Medications: Active Medications Acetaminophen (Tylenol -) 650 mg PO Q6H PRN PRN Reason: PAIN OR FEVER Last Admin: 03/27/19 09:35 Dose: 650 mg Enoxaparin Sodium (Lovenox -) 40 mg SQ DAILY [facility] Last Admin: 03/29/19 10:39 Dose: 40 mg Fentanyl (Duragesic 25mcg Patch -) 1 patch TD Q72H [facility] Stop: 04/04/19 03:21 Last Admin: 03/28/19 05:23 Dose: 1 patch Sodium Chloride (Normal Saline -) 1,000 mls @ 42 mls/hr IV ASDIR [facility] Last Admin: 03/29/19 20:45 Dose: Not Given Metronidazole (Flagyl 500mg Premixed Ivpb -) 500 mg in 100 mls @ 100 mls/hr IVPB Q8H-IV LYNN Last Admin: 03/29/19 18:38 Dose: 100 mls/hr Piperacillin Sod/Tazobactam (Sod 3.375 gm/ Dextrose) 50 mls @ 100 mls/hr IVPB Q8H-IV LYNN; Protocol Last Admin: 03/29/19 17:01 Dose: 100 mls/hr Insulin Aspart (Novolog Vial Sliding Scale -) 1 vial SQ ACHS [facility]; Protocol Last Admin: 03/29/19 21:14 Dose: Not Given Miscellaneous (Duragesic Patch Waste) 1 each MC PRN PRN PRN Reason: PAIN Morphine Sulfate (Msir -) 15 mg PO Q6H PRN PRN Reason: PAIN LEVEL 4 - 6 Last Admin: 03/29/19 18:36 Dose: 15 mg Polyethylene Glycol (Miralax (For Daily Use) -) 17 gm PO DAILY [facility] Last Admin: 03/29/19 10:45 Dose: Not Given Rosuvastatin Calcium (Crestor -) 5 mg PO DAILY [facility] Last Admin: 03/29/19 10:39 Dose: 5 mg Tramadol HCl (Ultram -) 50 mg PO Q8H PRN PRN Reason: PAIN Last Admin: 03/28/19 13:06 Dose: 50 mg - Objective Vital Signs: Vital Signs Temperature 98.2 F 03/29/19 13:59 Pulse Rate 87 03/29/19 13:59 Respiratory Rate 20 03/29/19 13:59 Blood Pressure 107/57 L 03/29/19 13:59 O2 Sat by Pulse Oximetry (%) 96 03/29/19 21:00 Constitutional: Yes: No Distress Eyes: Yes: Conjunctiva Clear Cardiovascular: Yes: Regular Rate and Rhythm Respiratory: Yes: Regular, CTA Bilaterally Gastrointestinal: Yes: Soft. No: Distention, Tenderness Edema: No Labs: CBC, BMP 03/29/19 09:45 03/29/19 09:45 INR, PTT INR 1.22 (0.83-1.09) H 03/25/19 17:42 Assessment/Plan 79F metastatic lung cancer, s/p carbo/alimta/Keytruda, currently on abraxane ( C1D22), s/p palliative RT to LLQ abdominal wall mass admitted withfailure to thrive/ lower abdominal pain. CT scan showed acute proctocolitis with pericolic abscesses. On Flagyl and zosyn. Planned for IR drainage. Blood counts stable.
[2019-03-30] MEDS ORDERED: DEXTROSE 5%-WATER - 50 ML IVPB ONE ×4 (01:09→18:09)
[2019-03-30] MEDS ORDERED: PIPERACILLIN/TAZOBACTAM 3.375 GM VIAL IVPB ONE ×4 (01:09→18:09)
[2019-03-30] MEDS: PIPERACILLIN/TAZOB 3.375 GM 3.375 GM in DEXTROSE 5%-WATER - 50 ML IVPB SCH ×3 (01:13→18:16)
[2019-03-30] MEDS: INSULIN SLIDING SCALE (NOVOLOG) 1 VIAL SQ SCH ×4 (06:11→21:56)
[2019-03-30] MEDS: ENOXAPARIN NA (PORCINE) 40 MG/0.4 ML DISP.SYRIN SQ SCH (09:30)
[2019-03-30] MEDS: ROSUVASTATIN CA 5 MG TABLET (FP) PO SCH (09:31)
[2019-03-30] MEDS: POLYETHYLENE GLYCOL 3350 119 GM BTL PO SCH (10:00)
--- NOTE | 2019-03-30 11:37 | PN ---
Progress Note (short form) - Note Progress Note: laying in bed no fevers continued abdominal discomfort Vital Signs Period Temp Pulse Resp BP Sys/Paulson Pulse Ox Last 24 Hr 98.2 F-98.8 F 83-95 20-20 103-142/50-64 96-96 cor-rrr lungs clear abd bilateral LQ tender to palpation ext no edema CBC, BMP 03/29/19 09:45 03/29/19 09:45 Microbiology 03/25/19 18:25 Blood - Peripheral Venous Blood Culture - Preliminary NO GROWTH OBTAINED AFTER 96 HOURS, INCUBATION TO CONTINUE FOR 1 DAYS. 03/25/19 17:42 Blood - Peripheral Venous Blood Culture - Preliminary NO GROWTH OBTAINED AFTER 96 HOURS, INCUBATION TO CONTINUE FOR 1 DAYS. 03/25/19 17:56 Urine - Urine Clean Catch Urine Culture - Final Escherichia Coli Enterobacter Cl[place]ae imp/reccd 79 yo female with metastatic lung cancer-on abraxane ct scan findings noted-proctocolitis with pelvic abscesses- continue zosyn and flagyl IR drainage ordered for am continue contact isolation overall prognosis is poor stool cdiff if diarrhea persists Problem List - Problems (1) Fever Code(s): R50.9 - FEVER, UNSPECIFIED (2) UTI (urinary tract infection) Code(s): N39.0 - URINARY TRACT INFECTION, SITE NOT SPECIFIED (3) Leukopenia Code(s): D72.819 - DECREASED WHITE BLOOD CELL COUNT, UNSPECIFIED (4) Metastatic adenocarcinoma Code(s): C79.9 - SECONDARY MALIGNANT NEOPLASM OF UNSPECIFIED SITE
--- NOTE | 2019-03-30 11:49 | PN ---
Progress Note, Physician - Current Medication List Current Medications: Active Medications Acetaminophen (Tylenol -) 650 mg PO Q6H PRN PRN Reason: PAIN OR FEVER Last Admin: 03/27/19 09:35 Dose: 650 mg Enoxaparin Sodium (Lovenox -) 40 mg SQ DAILY [facility] Last Admin: 03/30/19 09:30 Dose: 40 mg Fentanyl (Duragesic 25mcg Patch -) 1 patch TD Q72H LYNN Stop: 04/04/19 03:21 Last Admin: 03/28/19 05:23 Dose: 1 patch Sodium Chloride (Normal Saline -) 1,000 mls @ 42 mls/hr IV ASDIR LYNN Last Admin: 03/29/19 20:45 Dose: Not Given Metronidazole (Flagyl 500mg Premixed Ivpb -) 500 mg in 100 mls @ 100 mls/hr IVPB Q8H-IV LYNN Last Admin: 03/30/19 09:30 Dose: 100 mls/hr Piperacillin Sod/Tazobactam (Sod 3.375 gm/ Dextrose) 50 mls @ 100 mls/hr IVPB Q8H-IV LYNN; Protocol Last Admin: 03/30/19 10:46 Dose: 100 mls/hr Insulin Aspart (Novolog Vial Sliding Scale -) 1 vial SQ ACHS LYNN; Protocol Last Admin: 03/30/19 06:11 Dose: Not Given Miscellaneous (Duragesic Patch Waste) 1 each MC PRN PRN PRN Reason: PAIN Morphine Sulfate (Msir -) 15 mg PO Q6H PRN PRN Reason: PAIN LEVEL 4 - 6 Last Admin: 03/29/19 18:36 Dose: 15 mg Polyethylene Glycol (Miralax (For Daily Use) -) 17 gm PO DAILY [facility] Last Admin: 03/29/19 10:45 Dose: Not Given Rosuvastatin Calcium (Crestor -) 5 mg PO DAILY [facility] Last Admin: 03/30/19 09:31 Dose: 5 mg Tramadol HCl (Ultram -) 50 mg PO Q8H PRN PRN Reason: PAIN Last Admin: 03/28/19 13:06 Dose: 50 mg - Objective Vital Signs: Vital Signs Temperature 98.8 F 03/30/19 11:00 Pulse Rate 83 03/30/19 11:00 Respiratory Rate 20 03/29/19 18:00 Blood Pressure 109/56 L 03/30/19 11:00 O2 Sat by Pulse Oximetry (%) 96 03/30/19 11:13 Labs: CBC, BMP 03/29/19 09:45 03/29/19 09:45 INR, PTT INR 1.22 (0.83-1.09) H 03/25/19 17:42 Problem List - Problems (1) Proctocolitis with complication Assessment/Plan: -tylenol prn for temp >100F -GI consult noted -ID on board -Zosyn -also with abdominal wall mass -pain control -For drainage by IR Code(s): K52.9 - NONINFECTIVE GASTROENTERITIS AND COLITIS, UNSPECIFIED (2) Diabetes Code(s): E11.9 - TYPE 2 DIABETES MELLITUS WITHOUT COMPLICATIONS Qualifiers: Diabetes mellitus type: type 2 (3) Frequent falls Assessment/Plan: -fall precaution -Head CT and Cervical Spine CT no acute pathology -PT Code(s): R29.6 - REPEATED FALLS (4) Metastatic adenocarcinoma Assessment/Plan: -Oncology on board Code(s): C79.9 - SECONDARY MALIGNANT NEOPLASM OF UNSPECIFIED SITE (5) UTI (urinary tract infection) Assessment/Plan: -UC and BC pending Code(s): N39.0 - URINARY TRACT INFECTION, SITE NOT SPECIFIED
[2019-03-30] MEDS ORDERED: PHYTONADIONE 10 MG/1 ML AMP IVPB ONE (14:38)
--- NOTE | 2019-03-30 15:58 | PN.GI ---
GI Progress Note Subjective: GI NOte ( covering Dr. Braswell): Pain is unchanged but tolerable. Her sister and brother in law are interpreting. I answered their and Micheline's questions about her situation and the need for IR drainage. - Objective Vital Signs: Vital Signs Temperature 97.8 F 03/30/19 13:24 Pulse Rate 81 03/30/19 13:24 Respiratory Rate 18 03/30/19 13:24 Blood Pressure 92/54 L 03/30/19 13:24 O2 Sat by Pulse Oximetry (%) 96 03/30/19 11:13 Laboratory Tests 03/27/19 03/28/19 03/29/19 08:05 09:05 09:45 WBC 2.6 L 3.5 L 3.8 L Hgb 8.7 L Albumin 03/29/19 09:45 WBC Hgb Albumin 1.8 L Constitutional: Anxious ...Auscultate: Yes: Hypoactive Bowel Sounds ...Palpate: Yes: Soft, Other (LLQ tenderness is unchanged) Labs: CBC, BMP 03/29/19 09:45 03/29/19 09:45 INR, PTT INR 1.22 (0.83-1.09) H 03/25/19 17:42 Assessment/Plan Assessment: - Recurrent diverticular abscesses. - Need to exclude C diff Plan: -- Await IR drainage. -- Antibiotics already started by Dr Cohen -- Vitamin K ordered to correct her INR -- Dr Braswell will return 03/31 and assume her GI care. He may know what procedure was done at [facility] Problem List - Problems (1) Abdominal fluid collection Code(s): R18.8 - OTHER ASCITES (2) Abdominal pain Code(s): R10.9 - UNSPECIFIED ABDOMINAL PAIN (3) Diarrhea Code(s): R19.7 - DIARRHEA, UNSPECIFIED (4) GI (gastrointestinal bleed) Code(s): K92.2 - GASTROINTESTINAL HEMORRHAGE, UNSPECIFIED (5) Anemia Code(s): D64.9 - ANEMIA, UNSPECIFIED (6) Diabetes Code(s): E11.9 - TYPE 2 DIABETES MELLITUS WITHOUT COMPLICATIONS Qualifiers: Diabetes mellitus type: type 2 (7) History of diverticular abscess of colon Code(s): Z87.19 - PERSONAL HISTORY OF OTHER DISEASES OF THE DIGESTIVE SYSTEM (8) Metastatic adenocarcinoma Code(s): C79.9 - SECONDARY MALIGNANT NEOPLASM OF UNSPECIFIED SITE (9) Metastatic lung cancer (metastasis from lung to other site) Code(s): C34.90 - MALIGNANT NEOPLASM OF UNSP PART OF UNSP BRONCHUS OR LUNG Qualifiers: Laterality: left Qualified Code(s): C34.92 - Malignant neoplasm of unspecified part of left bronchus or lung
[2019-03-30] MEDS: morphine SULFATE IMMEDIATE RELEASE 30 MG TAB PO PRN ×2 (16:00→21:56)
--- NOTE | 2019-03-30 20:31 | PN ---
Progress Note, Physician History of Present Illness: No new events. Continues to have abominal pain. - Current Medication List Current Medications: Active Medications Acetaminophen (Tylenol -) 650 mg PO Q6H PRN PRN Reason: PAIN OR FEVER Last Admin: 03/27/19 09:35 Dose: 650 mg Enoxaparin Sodium (Lovenox -) 40 mg SQ DAILY [facility] Last Admin: 03/30/19 09:30 Dose: 40 mg Fentanyl (Duragesic 25mcg Patch -) 1 patch TD Q72H [facility] Stop: 04/04/19 03:21 Last Admin: 03/28/19 05:23 Dose: 1 patch Sodium Chloride (Normal Saline -) 1,000 mls @ 42 mls/hr IV ASDIR [facility] Last Admin: 03/29/19 20:45 Dose: Not Given Metronidazole (Flagyl 500mg Premixed Ivpb -) 500 mg in 100 mls @ 100 mls/hr IVPB Q8H-IV [facility] Last Admin: 03/30/19 16:56 Dose: 100 mls/hr Piperacillin Sod/Tazobactam (Sod 3.375 gm/ Dextrose) 50 mls @ 100 mls/hr IVPB Q8H-IV [facility]; Protocol Last Admin: 03/30/19 18:16 Dose: 100 mls/hr Insulin Aspart (Novolog Vial Sliding Scale -) 1 vial SQ ACHS [facility]; Protocol Last Admin: 03/30/19 16:57 Dose: Not Given Miscellaneous (Duragesic Patch Waste) 1 each MC PRN PRN PRN Reason: PAIN Morphine Sulfate (Msir -) 15 mg PO Q6H PRN PRN Reason: PAIN LEVEL 4 - 6 Last Admin: 03/30/19 16:00 Dose: 15 mg Polyethylene Glycol (Miralax (For Daily Use) -) 17 gm PO DAILY [facility] Last Admin: 03/30/19 10:00 Dose: Not Given Rosuvastatin Calcium (Crestor -) 5 mg PO DAILY [facility] Last Admin: 03/30/19 09:31 Dose: 5 mg Tramadol HCl (Ultram -) 50 mg PO Q8H PRN PRN Reason: PAIN Last Admin: 03/28/19 13:06 Dose: 50 mg - Objective Vital Signs: Vital Signs Temperature 97.8 F 03/30/19 13:24 Pulse Rate 81 09/08/19 13:24 Respiratory Rate 18 03/30/19 13:24 Blood Pressure 92/54 L 03/30/19 13:24 O2 Sat by Pulse Oximetry (%) 96 03/30/19 11:13 Constitutional: Yes: No Distress Eyes: Yes: Conjunctiva Clear Cardiovascular: Yes: Regular Rate and Rhythm Respiratory: Yes: Regular, CTA Bilaterally Gastrointestinal: Yes: Soft. No: Distention, Tenderness Edema: No Labs: CBC, BMP 03/29/19 09:45 03/29/19 09:45 INR, PTT INR 1.22 (0.83-1.09) H 03/25/19 17:42 Assessment/Plan 79F metastatic lung cancer, s/p carbo/alimta/Keytruda, currently on abraxane ( [id number]), s/p palliative RT to LLQ abdominal wall mass admitted withfailure to thrive/ lower abdominal pain. CT scan showed acute proctocolitis with pericolic abscesses. On Flagyl and zosyn. Planned for IR drainage. Blood counts stable.
[2019-03-31] MEDS: traMADol HCL 50 MG TABLET PO PRN (00:07)
[2019-03-31] MEDS ORDERED: DEXTROSE 5%-WATER - 50 ML IVPB ONE ×2 (02:25→10:07)
[2019-03-31] MEDS ORDERED: PIPERACILLIN/TAZOBACTAM 3.375 GM VIAL IVPB ONE ×2 (02:25→10:07)
[2019-03-31] MEDS: PIPERACILLIN/TAZOB 3.375 GM 3.375 GM in DEXTROSE 5%-WATER - 50 ML IVPB SCH ×2 (02:25→10:11)
[2019-03-31] MEDS: SODIUM CHLORIDE 1,000 ML IV SCH ×2 (02:44→11:30)
[2019-03-31] MEDS: morphine SULFATE IMMEDIATE RELEASE 30 MG TAB PO PRN ×2 (06:36→11:30)
[2019-03-31] MEDS: fentaNYL 25mcg/hr PATCH.TD72 TD SCH (06:36)
[2019-03-31] MEDS: INSULIN SLIDING SCALE (NOVOLOG) 1 VIAL SQ SCH ×4 (07:00→22:07)
[2019-03-31 09:35] LABS: INR 1.27 (0.83-1.09)
[2019-03-31 09:49] LABS: ALBUMIN 1.7 g/dl (3.4-5.0); BILIRUBIN,TOTAL 0.3 mg/dL (0.2-1); CALCIUM 7.4 mg/dL (8.5-10.1); CREATININE 0.3 mg/dL (0.55-1.3); POTASSIUM 3.3 mmol/L (3.5-5.1)
[2019-03-31 09:52] LABS: BLOOD UREA NITROGEN 2.2 mg/dL (7-18)
[2019-03-31] MEDS: ENOXAPARIN NA (PORCINE) 40 MG/0.4 ML DISP.SYRIN SQ SCH (10:11)
[2019-03-31] MEDS: ROSUVASTATIN CA 5 MG TABLET (FP) PO SCH (10:12)
[2019-03-31] MEDS: POLYETHYLENE GLYCOL 3350 119 GM BTL PO SCH (10:19)
--- NOTE | 2019-03-31 10:32 | PN ---
Progress Note (short form) - Note Progress Note: laying in bed no fevers less abdominal discomfort Vital Signs Period Temp Pulse Resp BP Sys/Paulson Pulse Ox Last 24 Hr 97.8 F-98.8 F 72-88 18-18 92-120/51-60 96-98 cor-rrr lungs decreased bs at bases abd soft,mild pelvic discomfort to palpation +masses ext no edema CBC, BMP 03/31/19 08:10 03/31/19 08:10 Microbiology 03/25/19 18:25 Blood - Peripheral Venous Blood Culture - Final NO GROWTH AFTER 5 DAYS INCUBATION 03/25/19 17:42 Blood - Peripheral Venous Blood Culture - Final NO GROWTH AFTER 5 DAYS INCUBATION 03/25/19 17:56 Urine - Urine Clean Catch Urine Culture - Final Escherichia Coli Enterobacter Cloacae imp/reccd 79 yo female with metastatic lung cancer-on abraxane ct scan findings noted-proctocolitis with pelvic abscesses- IR drainage not possible due to location of the abscesses switch to ertapenem, prior history of ecoli esbl continue flagyl for now continue contact isolation overall prognosis is poor stool cdiff if diarrhea persists Problem List - Problems (1) Fever Code(s): R50.9 - FEVER, UNSPECIFIED (2) UTI (urinary tract infection) Code(s): N39.0 - URINARY TRACT INFECTION, SITE NOT SPECIFIED (3) Leukopenia Code(s): D72.819 - DECREASED WHITE BLOOD CELL COUNT, UNSPECIFIED (4) Metastatic adenocarcinoma Code(s): C79.9 - SECONDARY MALIGNANT NEOPLASM OF UNSPECIFIED SITE
--- NOTE | 2019-03-31 10:57 | PN ---
Progress Note, Physician Chief Complaint: UTI Metastatic Lung CA History of Present Illness: Previous notes and events reviewed awake and alert NAD complain of dysuria and suprapubic pain Stool OB neg CT scan results reviewed - Current Medication List Current Medications: Active Medications Acetaminophen (Tylenol -) 650 mg PO Q6H PRN PRN Reason: PAIN OR FEVER Last Admin: 03/27/19 09:35 Dose: 650 mg Enoxaparin Sodium (Lovenox -) 40 mg SQ DAILY [facility] Last Admin: 03/31/19 10:11 Dose: 40 mg Fentanyl (Duragesic 25mcg Patch -) 1 patch TD Q72H [facility] Stop: 04/04/19 03:21 Last Admin: 03/31/19 06:36 Dose: 1 patch Sodium Chloride (Normal Saline -) 1,000 mls @ 42 mls/hr IV ASDIR [facility] Last Admin: 03/31/19 02:44 Dose: 42 mls/hr Metronidazole (Flagyl 500mg Premixed Ivpb -) 500 mg in 100 mls @ 100 mls/hr IVPB Q8H-IV [facility] Last Admin: 03/31/19 10:12 Dose: 100 mls/hr Ertapenem 1 gm/ Sodium (Chloride) 50 mls @ 100 mls/hr IVPB DAILY [facility] Insulin Aspart (Novolog Vial Sliding Scale -) 1 vial SQ ACHS [facility]; Protocol Last Admin: 03/31/19 07:00 Dose: Not Given Miscellaneous (Duragesic Patch Waste) 1 each MC PRN PRN PRN Reason: PAIN Morphine Sulfate (Msir -) 15 mg PO Q6H PRN PRN Reason: PAIN LEVEL 4 - 6 Last Admin: 03/31/19 06:36 Dose: 15 mg Polyethylene Glycol (Miralax (For Daily Use) -) 17 gm PO DAILY [facility] Last Admin: 03/31/19 10:19 Dose: Not Given Rosuvastatin Calcium (Crestor -) 5 mg PO DAILY [facility] Last Admin: 03/31/19 10:12 Dose: 5 mg Tramadol HCl (Ultram -) 50 mg PO Q8H PRN PRN Reason: PAIN Last Admin: 03/31/19 00:07 Dose: 50 mg - Objective Vital Signs: Vital Signs Temperature 98.5 F 03/31/19 05:43 Pulse Rate 88 03/31/19 05:43 Respiratory Rate 18 03/31/19 05:43 Blood Pressure 120/60 03/31/19 05:43 O2 Sat by Pulse Oximetry (%) 98 03/30/19 21:00 Constitutional: Yes: No Distress, Calm Eyes: Yes: Conjunctiva Clear HENT: Yes: Atraumatic Cardiovascular: Yes: Regular Rate and Rhythm Respiratory: Yes: Regular, CTA Bilaterally Gastrointestinal: Yes: Normal Bowel Sounds, Soft, Palpable Mass (LLQ), Tenderness (LLQ and suprapubic) Genitourinary: Yes: Incontinence Musculoskeletal: Yes: Muscle Weakness Extremities: Yes: WNL Edema: No Neurological: Yes: Alert, Weakness Psychiatric: Yes: Alert, Oriented Labs: CBC, BMP 03/31/19 08:10 03/31/19 08:10 INR, PTT INR 1.27 (0.83-1.09) H 03/31/19 08:10 Microbiology 03/25/19 18:25 Blood - Peripheral Venous Blood Culture - Final NO GROWTH AFTER 5 DAYS INCUBATION 03/25/19 17:42 Blood - Peripheral Venous Blood Culture - Final NO GROWTH AFTER 5 DAYS INCUBATION 03/25/19 17:56 Urine - Urine Clean Catch Urine Culture - Final Escherichia Coli Enterobacter Cloacae - ....Imaging Cat Scan: Report Reviewed <Krissy Masterson - Last Filed: 03/31/19 10:49> - Current Medication List Current Medications: Active Medications Acetaminophen (Tylenol -) 650 mg PO Q6H PRN PRN Reason: PAIN OR FEVER Last Admin: 04/02/19 20:39 Dose: 650 mg Enoxaparin Sodium (Lovenox -) 40 mg SQ DAILY [facility] Last Admin: 04/04/19 10:00 Dose: 40 mg Fentanyl (Duragesic 25mcg Patch -) 1 patch TD Q72H [facility] Last Admin: 04/03/19 23:00 Dose: 1 patch Fentanyl (Duragesic 12mcg Patch -) 1 patch TD Q72H [facility] Last Admin: 04/04/19 00:35 Dose: 1 patch Hydrocortisone (Anusol 2.5% Hc Cream -) 1 applic TP BID [facility] Last Admin: 04/04/19 09:58 Dose: 1 applic Metronidazole (Flagyl 500mg Premixed Ivpb -) 500 mg in 100 mls @ 100 mls/hr IVPB Q8H-IV [facility] Last Admin: 04/04/19 09:57 Dose: 100 mls/hr Ertapenem 1 gm/ Sodium (Chloride) 50 mls @ 100 mls/hr IVPB DAILY [facility] Last Admin: 04/04/19 09:57 Dose: 100 mls/hr Sodium Phosphate 20 mm/ Sodium (Chloride) 506.6667 mls @ 63.333 mls/hr IVPB ONCE ONE Stop: 04/04/19 22:59 Amino Acids (Clinimix -) 1,000 mls @ 65 mls/hr IV Q24H [facility] Stop: 04/05/19 14:59 Last Admin: 04/04/19 16:15 Dose: 65 mls/hr Insulin Aspart (Novolog Vial Sliding Scale -) 1 vial SQ ACHS [facility]; Protocol Last Admin: 04/04/19 10:37 Dose: Not Given Miscellaneous (Duragesic Patch Waste) 1 each MC PRN PRN PRN Reason: PAIN Miscellaneous (Duragesic Patch Waste) 1 each MC PRN PRN PRN Reason: PAIN Last Admin: 04/03/19 23:00 Dose: 1 each Morphine Sulfate (Msir -) 15 mg PO Q6H PRN PRN Reason: PAIN LEVEL 4 - 6 Last Admin: 04/03/19 17:43 Dose: 15 mg Ondansetron HCl (Zofran Injection) 4 mg IVPUSH Q8H PRN PRN Reason: NAUSEA Polyethylene Glycol (Miralax (For Daily Use) -) 17 gm PO DAILY [facility] Last Admin: 04/04/19 10:00 Dose: 17 gm Potassium Phos/Sodium Phos (Phos-Nak Packet -) 1 packet PO TID [facility] Stop: 04/06/19 10:00 Last Admin: 04/04/19 15:06 Dose: 1 packet Rosuvastatin Calcium (Crestor -) 5 mg PO DAILY [facility] Last Admin: 04/04/19 09:57 Dose: 5 mg - Objective Vital Signs: Vital Signs Temperature 98.6 F 04/04/19 15:25 Pulse Rate 81 04/04/19 15:25 Respiratory Rate 20 04/04/19 15:25 Blood Pressure 111/58 L 04/04/19 15:25 O2 Sat by Pulse Oximetry (%) 95 04/04/19 10:00 Labs: CBC, BMP 04/04/19 07:53 04/04/19 07:53 INR, PTT INR 1.27 (0.83-1.09) H 03/31/19 08:10 <Rodolfo Braswell - Last Filed: 04/04/19 16:45> Problem List - Problems (1) Fever Assessment/Plan: -resolved -tylenol prn for temp >100F -UC positive -BC neg -CXR neg -ID on board -Ertapenem and Flagyl Code(s): R50.9 - FEVER, UNSPECIFIED (2) Abdominal pain Assessment/Plan: -GI on board -CT scan shows interval development of concentric wall thickening involving the rectosigmoid colon and possibly the ascending colon consistent with acute proctocolitis, asdociated development of 3 x 2cm and 1.7 x 1.5cm paracolic abscessesnoted along left border of sigmoid colon, development of diffuse urinary bladder wall thickening is seen suggestive of acute cystitis, mildly increased size of a focal mass noted within left lower anterior pelvic wall, 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 -IR consult was placed for possible IR drain but unable to be done 2/2 surrounding bowel -pain control -Flagyl Code(s): R10.9 - UNSPECIFIED ABDOMINAL PAIN (3) Diabetes Assessment/Plan: -Diabetic diet -ISS -BGM ACHS Code(s): E11.9 - TYPE 2 DIABETES MELLITUS WITHOUT COMPLICATIONS (4) HLD (hyperlipidemia) Assessment/Plan: -Crestor Code(s): E78.5 - HYPERLIPIDEMIA, UNSPECIFIED (5) Hyponatremia Assessment/Plan: -Na 135 -improved -monitor electrolyte daily Code(s): E87.1 - HYPO-OSMOLALITY AND HYPONATREMIA (6) Metastatic lung cancer (metastasis from lung to other site) Assessment/Plan: -Oncology on board Code(s): C34.90 - MALIGNANT NEOPLASM OF UNSP PART OF UNSP BRONCHUS OR LUNG Qualifiers: Laterality: left Qualified Code(s): C34.92 - Malignant neoplasm of unspecified part of left bronchus or lung (7) UTI (urinary tract infection) Assessment/Plan: -ID on board -no leukocytosis -UA shows 2+ leuks -UC positive -contact precaution -Ertapenem Code(s): N39.0 - URINARY TRACT INFECTION, SITE NOT SPECIFIED (8) Frequent falls Assessment/Plan: -fall precaution -Head CT and Cervical Spine CT no acute pathology -PT Code(s): R29.6 - REPEATED FALLS (9) Anemia Assessment/Plan: -Hg 8.9 -monitor Hg daily -transfuse for Hg <8.0 Code(s): D64.9 - ANEMIA, UNSPECIFIED <Krissy Masterson - Last Filed: 03/31/19 10:49> - Problems (1) Abdominal pain Code(s): R10.9 - UNSPECIFIED ABDOMINAL PAIN (2) Diarrhea Code(s): R19.7 - DIARRHEA, UNSPECIFIED (3) Rectal pain Code(s): K62.89 - OTHER SPECIFIED DISEASES OF ANUS AND RECTUM <Rodolfo Braswell - Last Filed: 04/04/19 16:45> Assessment/Plan see problem list dvt ppx <Krissy Masterson - Last Filed: 03/31/19 10:49>
[2019-03-31] MEDS ORDERED: POTASSIUM CHLORIDE ORAL LIQUID 20 MEQ/15 ML PO ONE (10:59)
[2019-03-31 11:52] LABS: RBC 3.33 M/mm3 (3.60-5.2); WHITE BLOOD COUNT 5.7 K/mm3 (4.0-10.0)
[2019-03-31 11:53] LABS: BASO % 1.1 % (0-2.0); EOS % 1.9 % (0-4.5); HEMATOCRIT 28.5 % (32.4-45.2); LYMPH % 19.8 % (8-40); MCH 26.9 pg (25.7-33.7); MCHC 31.5 g/dl (32.0-36.0); MEAN CELL VOLUME 85.5 fl (80-96); MEAN PLT VOLUME 6.8 fl (7.5-11.1); MONO % 13.5 % (3.8-10.2); NEUT % 63.7 % (42.8-82.8); PLATELET COUNT 444 K/MM3 (134-434); RDW 16.6 % (11.6-15.6)
[2019-03-31] MEDS ORDERED: POTASSIUM CHLORIDE TABS 20 MEQ TABLET.ER (FP) PO ONE (11:55)
[2019-03-31] MEDS: ERTAPENEM SODIUM 1 GM in SODIUM CHLORIDE 50 ML IVPB SCH (12:29)
--- NOTE | 2019-03-31 14:57 | CONSULT ---
Consult Consult Specialty:: Nephrology Reason for Consultation:: low bun - History of Present Illness Chief Complaint: s/p fall History of Present Illness: Pt is a 79 year old female with pmhx of hyponatremia, lung cancer, dm and uti who presents after a fall. She has had poor PO intake and not much appetite. I was called to evaluate her for low bun. She has been on saline. Pt was recently discharged from the hospital. She denies shortness of breath or palpitations. She denies lower ext edema. - History Source History Provided By: Patient, Medical Record - Past Medical History Cardio/Vascular: Yes: HTN, Hyperlipdemia Pulmonary: Yes: Cancer (Metastatic adenocarcinoma dx'ed 08/10) Gastrointestinal: Yes: Diverticulitis (with abscess required IR drainage 11/07), Diverticulosis Renal/: Yes: UTI Musculoskeletal: Yes: Other (Bony Metastases (s/p RT)) Endocrine: Yes: Diabetes Mellitus, SIADH - Past Surgical History Past Surgical History: Yes: Colonoscopy Additional Surgical History: LUQ abdominal incision for ? procedure at [facility] about 1 year ago - Alcohol/Substance Use Hx Alcohol Use: No History of Substance Use: reports: None - Smoking History Smoking history: Former smoker Have you smoked in the past 12 months: No If you are a former smoker, when did you quit?: 2013 - Social History Usual Living Arrangement: Alone ADL: Independent Occupation: [employer] History of Recent Travel: No Home Medications - Allergies Allergies/Adverse Reactions: Allergies Allergy/AdvReac Type Severity Reaction Status Date / Time No Known Allergies Allergy Verified 03/10/19 18:01 - Home Medications Home Medications: Ambulatory Orders Rosuvastatin [Crestor -] 10 mg PO DAILY 07/25/18 metFORMIN HCL [Metformin ER Osmotic] 500 mg PO BIDAC 07/25/18 Docusate Sodium [Colace -] 100 mg PO TID #90 capsule 07/31/18 Folic Acid - 1 mg PO DAILY #30 tablet 07/31/18 Sennosides [Senna -] 2 tab PO HS #60 tablet 07/31/18 Ondansetron HCl [Zofran] 8 mg PO QID PRN 01/30/19 Prochlorperazine Maleate [Compazine] 10 mg PO TID PRN 01/30/19 Ferrous Sulfate [Feosol] 325 mg PO DAILY #30 ud 02/06/19 Polyethylene Glycol 3350 [Miralax 119 gm Btl -] 17 gm PO DAILY #1 bottle Sennosides [Senna -] 2 tab PO HS #60 tablet 02/06/19 FENTANYL 25mcg PATCH [DURAGESIC 25mcg PATCH -] 25 mcg PO 03/11/19 Morphine Sulfate 15 mg PO QID 03/11/19 Cephalexin Monohydrate [Keflex -] 500 mg PO BID #14 capsule 03/14/19 FENTANYL 25mcg PATCH [DURAGESIC 25mcg PATCH -] 1 patch TD Q72H #10 patch MDD 1 03/14/19 Morphine *Immediate Release* [Msir -] 15 mg PO Q6H PRN #20 tab MDD 4 03/14/19 Naph,Mb-Db/K pH,Mbdb [PHOS-NaK PACKET -] 1 packet PO TID #10 pow 03/14/19 Tramadol HCl 50 mg PO Q8H PRN #15 tablet MDD 3 03/14/19 Family Disease History - Family Disease History Family Disease History: Diabetes: Mother (), Other: Father (- old age), Sister (alive and well), Son (alive and well) Review of Systems - Review of Systems Constitutional: reports: Loss of Appetite, Malaise Eyes: reports: No Symptoms HENT: reports: No Symptoms Neck: reports: No Symptoms Cardiovascular: reports: No Symptoms Respiratory: reports: No Symptoms Gastrointestinal: reports: No Symptoms Genitourinary: reports: No Symptoms Integumentary: reports: No Symptoms Hematology/Lymphatic: reports: No Symptoms Psychiatric: reports: No Symptoms Physical Exam Vital Signs: Vital Signs Temperature 98.9 F 03/31/19 14:17 Pulse Rate 90 03/31/19 14:17 Respiratory Rate 17 03/31/19 13:16 Blood Pressure 110/58 L 03/31/19 14:17 O2 Sat by Pulse Oximetry (%) 97 03/31/19 09:00 Constitutional: Yes: Calm Eyes: Yes: Conjunctiva Clear HENT: Yes: Atraumatic Neck: Yes: Supple Cardiovascular: Yes: S1, S2 Respiratory: Yes: On Nasal O2 Gastrointestinal: Yes: Soft Renal/: Yes: WNL Musculoskeletal: Yes: WNL Extremities: Yes: WNL Edema: No Neurological: Yes: Oriented Psychiatric: Yes: Oriented Labs: CBC, BMP 03/31/19 08:10 03/31/19 08:10 Laboratory Tests 03/31/19 08:10 Sodium 135 L Potassium 3.3 L BUN 2.2 L* Creatinine 0.3 L Assessment/Plan Current Medications Generic Name Dose Route Start Last Admin Trade Name Freq PRN Reason Stop Dose Admin Acetaminophen 650 mg 03/26/19 00:27 03/27/19 09:35 Tylenol - PO 650 mg Q6H PRN Administration PAIN OR FEVER Enoxaparin Sodium 40 mg 03/26/19 10:00 03/31/19 10:11 Lovenox - SQ 40 mg DAILY [facility] Administration Fentanyl 1 patch 03/28/19 03:30 03/31/19 06:36 Duragesic 25mcg Patch - TD 04/04/19 03:21 1 patch Q72H [facility] Administration Sodium Chloride 1,000 mls @ 42 mls/hr 03/28/19 20:45 03/31/19 11:30 Normal Saline - IV Not Given ASDIR LYNN Metronidazole 500 mg in 100 mls @ 100 mls/hr 03/29/19 10:00 03/31/19 11:30 Flagyl 500mg Premixed Ivpb - IVPB Not Given Q8H-IV [facility] Ertapenem 1 gm/ Sodium 50 mls @ 100 mls/hr 03/31/19 10:45 03/31/19 12:29 Chloride IVPB 100 mls/hr DAILY [facility] Administration Insulin Aspart 1 vial 03/26/19 11:00 03/31/19 11:30 Novolog Vial Sliding Scale - SQ Not Given ACHS [facility] Protocol Miscellaneous 1 each 03/28/19 03:21 Duragesic Patch Waste MC PRN PRN PAIN Morphine Sulfate 15 mg 03/27/19 10:55 03/31/19 06:36 Msir - PO 15 mg Q6H PRN Administration PAIN LEVEL 4 - 6 Polyethylene Glycol 17 gm 03/28/19 10:00 03/31/19 10:19 Miralax (For Daily Use) - PO Not Given DAILY [facility] Rosuvastatin Calcium 5 mg 03/29/19 09:11 03/31/19 10:12 Crestor - PO 5 mg DAILY [facility] Administration Tramadol HCl 50 mg 03/27/19 10:55 03/31/19 00:07 Ultram - PO 50 mg Q8H PRN Administration PAIN Impression 1. hyponatremia 2. lung cancer 3. dm 4. hypokalemia 5. UTI 6. malnutrition Plan - pt with poor po intake - d/c fluids - start clinimix instead - encourage po intake - will follow
[2019-03-31] MEDS: POTASSIUM CHLORIDE 20 MEQ in AMINO ACIDS 4.25%/D5W 1,000 ML IVPB SCH (17:40)
--- NOTE | 2019-03-31 18:43 | PN ---
Progress Note (short form) - Note Progress Note: Patient seen and examined ID noted Proctocolitis with abscesses - Unable to be drained Antibiotics to be changed Last Vital Signs Temp Pulse Resp BP Pulse Ox 98.9 F 90 17 110/58 L 97 03/31/19 14:17 03/31/19 14:17 03/31/19 13:16 03/31/19 14:17 03/31/19 09:00 LUNGS -CLEAR COR-rsr ABD- SOFT LLQ MASS NO LE EDEMA CBC, BMP 03/31/19 08:10 03/31/19 08:10 Current Medications Generic Name Dose Route Start Last Admin Trade Name Freq PRN Reason Stop Dose Admin Acetaminophen 650 mg 03/26/19 00:27 03/27/19 09:35 Tylenol - PO 650 mg Q6H PRN Administration PAIN OR FEVER Enoxaparin Sodium 40 mg 03/26/19 10:00 03/31/19 10:11 Lovenox - SQ 40 mg DAILY [facility] Administration Fentanyl 1 patch 03/28/19 03:30 03/31/19 06:36 Duragesic 25mcg Patch - TD 04/04/19 03:21 1 patch Q72H [facility] Administration Metronidazole 500 mg in 100 mls @ 100 mls/hr 03/29/19 10:00 03/31/19 17:29 Flagyl 500mg Premixed Ivpb - IVPB 100 mls/hr Q8H-IV [facility] Administration Ertapenem 1 gm/ Sodium 50 mls @ 100 mls/hr 03/31/19 10:45 03/31/19 12:29 Chloride IVPB 100 mls/hr DAILY [facility] Administration Potassium Chloride 20 meq/ 1,010 mls @ 42 mls/hr 03/31/19 15:00 03/31/19 17: 40 Amino Acids IVPB 42 mls/hr Q24H [facility] Administration Insulin Aspart 1 vial 03/26/19 11:00 03/31/19 17:42 Novolog Vial Sliding Scale - SQ Not Given ACHS [facility] Protocol Miscellaneous 1 each 03/28/19 03:21 Duragesic Patch Waste MC PRN PRN PAIN Morphine Sulfate 15 mg 03/27/19 10:55 03/31/19 06:36 Msir - PO 15 mg Q6H PRN Administration PAIN LEVEL 4 - 6 Polyethylene Glycol 17 gm 03/28/19 10:00 03/31/19 10:19 Miralax (For Daily Use) - PO Not Given DAILY [facility] Rosuvastatin Calcium 5 mg 03/29/19 09:11 03/31/19 10:12 Crestor - PO 5 mg DAILY [facility] Administration Tramadol HCl 50 mg 03/27/19 10:55 03/31/19 00:07 Ultram - PO 50 mg Q8H PRN Administration PAIN Impression: Lung ca - S/P RT/ chemotherapy Now on Abraxane Proctocolitis /abscesses DION Pain management Antibiotic management
[2019-04-01] MEDS: INSULIN SLIDING SCALE (NOVOLOG) 1 VIAL SQ SCH ×4 (06:50→21:57)
[2019-04-01 07:48] LABS: ALBUMIN 1.7 g/dl (3.4-5.0); BILIRUBIN,TOTAL 0.2 mg/dL (0.2-1); CALCIUM 7.2 mg/dL (8.5-10.1); CREATININE 0.3 mg/dL (0.55-1.3); POTASSIUM 3.7 mmol/L (3.5-5.1); TOT PROT 4.7 g/dl (6.4-8.2)
[2019-04-01 07:52] LABS: BLOOD UREA NITROGEN 2.7 mg/dL (7-18); PHOSPHOROUS 0.8 mg/dL (2.5-4.9)
[2019-04-01 08:11] LABS: HEMATOCRIT 25.9 % (32.4-45.2); HEMOGLOBIN 8.4 GM/dL (10.7-15.3); MCH 27.8 pg (25.7-33.7); MCHC 32.5 g/dl (32.0-36.0); MEAN CELL VOLUME 85.4 fl (80-96); MEAN PLT VOLUME 6.6 fl (7.5-11.1); PLATELET COUNT 430 K/MM3 (134-434); RBC 3.03 M/mm3 (3.60-5.2); RDW 17.1 % (11.6-15.6); WHITE BLOOD COUNT 5.6 K/mm3 (4.0-10.0)
--- NOTE | 2019-04-01 08:43 | PN.GI ---
GI Progress Note Subjective: Patient continue to have lower abdominal pain, accompanied with nausea and diarrhea. Denies rectal bleeding, melena, or blood in stool. CT scan results reviewed. - Objective Vital Signs: Vital Signs Temperature 98.2 F 04/01/19 06:00 Pulse Rate 84 04/01/19 06:00 Respiratory Rate 18 04/01/19 06:00 Blood Pressure 111/57 L 04/01/19 06:00 O2 Sat by Pulse Oximetry (%) 97 03/31/19 21:00 Constitutional: No Distress, Calm Eyes: Yes: Conjunctiva Clear HENT: Yes: Atraumatic Cardiovascular: Yes: Regular Rate and Rhythm Respiratory: Yes: Regular, CTA Bilaterally Gastrointestinal Inspection: Yes: WNL. No: Ascites, Distention, Hernia, Scars, Other ...Auscultate: Yes: Normoactive Bowel Sounds. No: Hyperactive Bowel Sounds, Hypoactive Bowel Sounds, No Bowel Sounds, Other ...Palpate: Yes: Soft, Tenderness (diffuse, more prominent in lower abdomen). No: Firm/Rigid, Guarding, Hepatomegaly, Mass, Pulsatile Mass, Splenomegaly, Tenderness, Epigastium, Tenderness, Rebound, Other ...Percussion: Yes: Tympanitic. No: Dullness, Fluid Wave, Other Neurological: Yes: Alert Psychiatric: Yes: Alert Labs: CBC, BMP 04/01/19 06:00 INR, PTT INR 1.27 (0.83-1.09) H 03/31/19 08:10 Active Medications Generic Name Dose Route Start Last Admin Trade Name Freq PRN Reason Stop Dose Admin Acetaminophen 650 mg 03/26/19 00:27 03/27/19 09:35 Tylenol - PO 650 mg Q6H PRN Administration PAIN OR FEVER Enoxaparin Sodium 40 mg 03/26/19 10:00 03/31/19 10:11 Lovenox - SQ 40 mg DAILY [facility] Administration Fentanyl 1 patch 03/28/19 03:30 03/31/19 06:36 Duragesic 25mcg Patch - TD 04/04/19 03:21 1 patch Q72H L[facility]NN Administration Metronidazole 500 mg in 100 mls @ 100 mls/hr 03/29/19 10:00 04/01/19 02:29 Flagyl 500mg Premixed Ivpb - IVPB 100 mls/hr Q8H-IV [facility] Administration Ertapenem 1 gm/ Sodium 50 mls @ 100 mls/hr 03/31/19 10:45 03/31/19 12:29 Chloride IVPB 100 mls/hr DAILY [facility] Administration Potassium Chloride 20 meq/ 1,010 mls @ 42 mls/hr 03/31/19 15:00 03/31/19 17: 40 Amino Acids IVPB 42 mls/hr Q24H [facility] Administration Insulin Aspart 1 vial 03/26/19 11:00 03/31/19 22:07 Novolog Vial Sliding Scale - SQ Not Given ACHS [facility] Protocol Miscellaneous 1 each 03/28/19 03:21 Duragesic Patch Waste MC PRN PRN PAIN Morphine Sulfate 15 mg 03/27/19 10:55 03/31/19 11:30 Msir - PO 15 mg Q6H PRN Administration PAIN LEVEL 4 - 6 Polyethylene Glycol 17 gm 03/28/19 10:00 03/31/19 10:19 Miralax (For Daily Use) - PO Not Given DAILY [facility] Rosuvastatin Calcium 5 mg 03/29/19 09:11 03/31/19 10:12 Crestor - PO 5 mg DAILY [facility] Administration Tramadol HCl 50 mg 03/27/19 10:55 03/31/19 00:07 Ultram - PO 50 mg Q8H PRN Administration PAIN Problem List - Problems (1) Abdominal pain Assessment/Plan: -CT scan reviewed and shows pericolonic abscess 3 x 2cm -continue IV ABT -will need repeat CT scan to show if resolution of abscess occurred -ID recommendation appreciated Code(s): R10.9 - UNSPECIFIED ABDOMINAL PAIN (2) Diarrhea Assessment/Plan: -Stool culture, Cdiff, Calpoprectin ordered Code(s): R19.7 - DIARRHEA, UNSPECIFIED
[2019-04-01] MEDS: morphine SULFATE IMMEDIATE RELEASE 30 MG TAB PO PRN ×2 (09:44→22:01)
[2019-04-01] MEDS: POLYETHYLENE GLYCOL 3350 119 GM BTL PO SCH (09:45)
[2019-04-01] MEDS: ROSUVASTATIN CA 5 MG TABLET (FP) PO SCH (09:46)
[2019-04-01] MEDS: ENOXAPARIN NA (PORCINE) 40 MG/0.4 ML DISP.SYRIN SQ SCH (09:52)
[2019-04-01] MEDS ORDERED: SODIUM PHOSPHATE - 30 MM in SODIUM CHLORIDE 500 ML IVPB ONE (09:58)
[2019-04-01] MEDS ORDERED: PT OWN MED DRAWER 7, Y5N ONE (11:22)
[2019-04-01] MEDS: ERTAPENEM SODIUM 1 GM in SODIUM CHLORIDE 50 ML IVPB SCH (12:19)
--- NOTE | 2019-04-01 12:40 | PN ---
Progress Note, Physician History of Present Illness: Pt seen and examined at bedside. She is awake and alert. She denies shortness of breath. - Current Medication List Current Medications: Active Medications Acetaminophen (Tylenol -) 650 mg PO Q6H PRN PRN Reason: PAIN OR FEVER Last Admin: 03/27/19 09:35 Dose: 650 mg Enoxaparin Sodium (Lovenox -) 40 mg SQ DAILY [facility] Last Admin: 04/01/19 09:52 Dose: 40 mg Fentanyl (Duragesic 25mcg Patch -) 1 patch TD Q72H [facility] Stop: 04/04/19 03:21 Last Admin: 03/31/19 06:36 Dose: 1 patch Metronidazole (Flagyl 500mg Premixed Ivpb -) 500 mg in 100 mls @ 100 mls/hr IVPB Q8H-IV [facility] Last Admin: 04/01/19 09:46 Dose: 100 mls/hr Ertapenem 1 gm/ Sodium (Chloride) 50 mls @ 100 mls/hr IVPB DAILY [facility] Last Admin: 04/01/19 12:19 Dose: 100 mls/hr Potassium Chloride 20 meq/ (Amino Acids) 1,010 mls @ 42 mls/hr IVPB Q24H [facility] Last Admin: 03/31/19 17:40 Dose: 42 mls/hr Sodium Phosphate 30 mm/ Sodium (Chloride) 510 mls @ 62.5 mls/hr IVPB ONCE ONE Stop: 04/01/19 18:07 Insulin Aspart (Novolog Vial Sliding Scale -) 1 vial SQ ACHS [facility]; Protocol Last Admin: 04/01/19 11:35 Dose: Not Given Miscellaneous (Duragesic Patch Waste) 1 each MC PRN PRN PRN Reason: PAIN Morphine Sulfate (Msir -) 15 mg PO Q6H PRN PRN Reason: PAIN LEVEL 4 - 6 Last Admin: 04/01/19 09:44 Dose: 15 mg Polyethylene Glycol (Miralax (For Daily Use) -) 17 gm PO DAILY [facility] Last Admin: 04/01/19 09:45 Dose: Not Given Potassium Phos/Sodium Phos (Phos-Nak Packet -) 1 packet PO TID [facility] Rosuvastatin Calcium (Crestor -) 5 mg PO DAILY [facility] Last Admin: 04/01/19 09:46 Dose: 5 mg Tramadol HCl (Ultram -) 50 mg PO Q8H PRN PRN Reason: PAIN Last Admin: 03/31/19 00:07 Dose: 50 mg - Objective Vital Signs: Vital Signs Temperature 98.2 F 04/01/19 06:00 Pulse Rate 84 04/01/19 06:00 Respiratory Rate 18 04/01/19 06:00 Blood Pressure 111/57 L 04/01/19 06:00 O2 Sat by Pulse Oximetry (%) 97 03/31/19 21:00 Constitutional: Yes: Calm Eyes: Yes: Conjunctiva Clear HENT: Yes: Atraumatic Neck: Yes: Supple Cardiovascular: Yes: S1, S2 Respiratory: Yes: CTA Bilaterally Gastrointestinal: Yes: Soft Genitourinary: Yes: WNL Musculoskeletal: Yes: WNL Edema: No Neurological: Yes: Oriented Psychiatric: Yes: Oriented Labs: CBC, BMP 04/01/19 06:00 04/01/19 06:00 INR, PTT INR 1.27 (0.83-1.09) H 03/31/19 08:10 Assessment/Plan Current Medications Generic Name Dose Route Start Last Admin Trade Name Freq PRN Reason Stop Dose Admin Acetaminophen 650 mg 03/26/19 00:27 03/27/19 09:35 Tylenol - PO 650 mg Q6H PRN Administration PAIN OR FEVER Enoxaparin Sodium 40 mg 03/26/19 10:00 04/01/19 09:52 Lovenox - SQ 40 mg DAILY [facility] Administration Fentanyl 1 patch 03/28/19 03:30 03/31/19 06:36 Duragesic 25mcg Patch - TD 04/04/19 03:21 1 patch Q72H [facility] Administration Metronidazole 500 mg in 100 mls @ 100 mls/hr 03/29/19 10:00 04/01/19 09:46 Flagyl 500mg Premixed Ivpb - IVPB 100 mls/hr Q8H-IV [facility] Administration Ertapenem 1 gm/ Sodium 50 mls @ 100 mls/hr 03/31/19 10:45 04/01/19 12:19 Chloride IVPB 100 mls/hr DAILY [facility] Administration Potassium Chloride 20 meq/ 1,010 mls @ 42 mls/hr 03/31/19 15:00 03/31/19 17: 40 Amino Acids IVPB 42 mls/hr Q24H [facility] Administration Sodium Phosphate 30 mm/ Sodium 510 mls @ 62.5 mls/hr 04/01/19 09:58 Chloride IVPB 04/01/19 18:07 ONCE ONE Insulin Aspart 1 vial 03/26/19 11:00 04/01/19 11:35 Novolog Vial Sliding Scale - SQ Not Given ACHS [facility] Protocol Miscellaneous 1 each 03/28/19 03:21 Duragesic Patch Waste MC PRN PRN PAIN Morphine Sulfate 15 mg 03/27/19 10:55 04/01/19 09:44 Msir - PO 15 mg Q6H PRN Administration PAIN LEVEL 4 - 6 Polyethylene Glycol 17 gm 03/28/19 10:00 04/01/19 09:45 Miralax (For Daily Use) - PO Not Given DAILY [facility] Potassium Phos/Sodium Phos 1 packet 04/01/19 14:00 Phos-Nak Packet - PO TID [facility] Rosuvastatin Calcium 5 mg 03/29/19 09:11 04/01/19 09:46 Crestor - PO 5 mg DAILY [facility] Administration Tramadol HCl 50 mg 03/27/19 10:55 03/31/19 00:07 Ultram - PO 50 mg Q8H PRN Administration PAIN Impression 1. hyponatremia 2. lung cancer 3. dm 4. hypokalemia 5. UTI 6. malnutrition Plan - cont clinimix - replace phos - repeat labs in am - encourage po intake - bun starting to improved - will follow
[2019-04-01] MEDS: NAPH,MB-DB/K PH,MBDB POWDER PACKET PO SCH ×2 (14:29→21:56)
--- NOTE | 2019-04-01 14:29 | PN ---
Progress Note, Physician Chief Complaint: UTI Metastatic Lung CA History of Present Illness: Previous notes and events reviewed awake and alert NAD sts feeling a little better today c/o diarrhea and nausea Stool OB neg CT scan results reviewed - Current Medication List Current Medications: Active Medications Acetaminophen (Tylenol -) 650 mg PO Q6H PRN PRN Reason: PAIN OR FEVER Last Admin: 03/27/19 09:35 Dose: 650 mg Enoxaparin Sodium (Lovenox -) 40 mg SQ DAILY [facility] Last Admin: 04/01/19 09:52 Dose: 40 mg Fentanyl (Duragesic 25mcg Patch -) 1 patch TD Q72H [facility] Stop: 04/04/19 03:21 Last Admin: 03/31/19 06:36 Dose: 1 patch Metronidazole (Flagyl 500mg Premixed Ivpb -) 500 mg in 100 mls @ 100 mls/hr IVPB Q8H-IV [facility] Last Admin: 04/01/19 09:46 Dose: 100 mls/hr Ertapenem 1 gm/ Sodium (Chloride) 50 mls @ 100 mls/hr IVPB DAILY [facility] Last Admin: 04/01/19 12:19 Dose: 100 mls/hr Potassium Chloride 20 meq/ (Amino Acids) 1,010 mls @ 42 mls/hr IVPB Q24H [facility] Last Admin: 03/31/19 17:40 Dose: 42 mls/hr Sodium Phosphate 30 mm/ Sodium (Chloride) 510 mls @ 62.5 mls/hr IVPB ONCE ONE Stop: 04/01/19 18:07 Last Admin: 04/01/19 13:01 Dose: 62.5 mls/hr Insulin Aspart (Novolog Vial Sliding Scale -) 1 vial SQ ACHS [facility]; Protocol Last Admin: 04/01/19 11:35 Dose: Not Given Miscellaneous (Duragesic Patch Waste) 1 each MC PRN PRN PRN Reason: PAIN Morphine Sulfate (Msir -) 15 mg PO Q6H PRN PRN Reason: PAIN LEVEL 4 - 6 Last Admin: 04/01/19 09:44 Dose: 15 mg Polyethylene Glycol (Miralax (For Daily Use) -) 17 gm PO DAILY [facility] Last Admin: 04/01/19 09:45 Dose: Not Given Potassium Phos/Sodium Phos (Phos-Nak Packet -) 1 packet PO TID [facility] Rosuvastatin Calcium (Crestor -) 5 mg PO DAILY [facility] Last Admin: 04/01/19 09:46 Dose: 5 mg Tramadol HCl (Ultram -) 50 mg PO Q8H PRN PRN Reason: PAIN Last Admin: 03/31/19 00:07 Dose: 50 mg - Objective Vital Signs: Vital Signs Temperature 98.2 F 04/01/19 06:00 Pulse Rate 84 04/01/19 06:00 Respiratory Rate 18 04/01/19 06:00 Blood Pressure 111/57 L 04/01/19 06:00 O2 Sat by Pulse Oximetry (%) 97 03/31/19 21:00 Constitutional: Yes: No Distress, Calm Eyes: Yes: Conjunctiva Clear HENT: Yes: Atraumatic Cardiovascular: Yes: Regular Rate and Rhythm Respiratory: Yes: Regular, CTA Bilaterally Gastrointestinal: Yes: Normal Bowel Sounds, Soft, Abdomen, Obese, Tenderness ( diffuse) Genitourinary: Yes: Incontinence Musculoskeletal: Yes: Muscle Weakness Extremities: Yes: WNL Edema: No Neurological: Yes: Alert, Pre-Existing Deficit Psychiatric: Yes: Alert, Oriented Labs: CBC, BMP 04/01/19 06:00 04/01/19 06:00 INR, PTT INR 1.27 (0.83-1.09) H 03/31/19 08:10 Microbiology 03/25/19 18:25 Blood - Peripheral Venous Blood Culture - Final NO GROWTH AFTER 5 DAYS INCUBATION 03/25/19 17:42 Blood - Peripheral Venous Blood Culture - Final NO GROWTH AFTER 5 DAYS INCUBATION 03/25/19 17:56 Urine - Urine Clean Catch Urine Culture - Final Escherichia Coli Enterobacter Cloacae Problem List - Problems (1) Fever Assessment/Plan: -resolved -tylenol prn for temp >100F -UC positive -BC neg -CXR neg -ID on board -Ertapenem and Flagyl Code(s): R50.9 - FEVER, UNSPECIFIED (2) Abdominal pain Assessment/Plan: -GI on board -CT scan shows interval development of concentric wall thickening involving the rectosigmoid colon and possibly the ascending colon consistent with acute proctocolitis, asdociated development of 3 x 2cm and 1.7 x 1.5cm paracolic abscessesnoted along left border of sigmoid colon, development of diffuse urinary bladder wall thickening is seen suggestive of acute cystitis, mildly increased size of a focal mass noted within left lower anterior pelvic wall, 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 -IR consult was placed for possible IR drain but unable to be done 2/2 surrounding bowel -pain control -Flagyl Code(s): R10.9 - UNSPECIFIED ABDOMINAL PAIN (3) Diabetes Assessment/Plan: -Diabetic diet -ISS -BGM ACHS Code(s): E11.9 - TYPE 2 DIABETES MELLITUS WITHOUT COMPLICATIONS (4) HLD (hyperlipidemia) Assessment/Plan: -Crestor Code(s): E78.5 - HYPERLIPIDEMIA, UNSPECIFIED (5) Hyponatremia Assessment/Plan: -Na 134 -improved -monitor electrolyte daily Code(s): E87.1 - HYPO-OSMOLALITY AND HYPONATREMIA (6) Metastatic lung cancer (metastasis from lung to other site) Assessment/Plan: -Oncology on board Code(s): C34.90 - MALIGNANT NEOPLASM OF UNSP PART OF UNSP BRONCHUS OR LUNG Qualifiers: Laterality: left Qualified Code(s): C34.92 - Malignant neoplasm of unspecified part of left bronchus or lung (7) UTI (urinary tract infection) Assessment/Plan: -ID on board -no leukocytosis -UA shows 2+ leuks -UC positive -contact precaution -Ertapenem Code(s): N39.0 - URINARY TRACT INFECTION, SITE NOT SPECIFIED (8) Frequent falls Assessment/Plan: -fall precaution -Head CT and Cervical Spine CT no acute pathology -PT Code(s): R29.6 - REPEATED FALLS (9) Anemia Assessment/Plan: -Hg 8.4 -monitor Hg daily -transfuse for Hg <8.0 Code(s): D64.9 - ANEMIA, UNSPECIFIED (10) Hypophosphatemia Assessment/Plan: -Renal on board -Phos 0.8 -Phos-NAK packet x 1 TID -monitor phosphorous level Code(s): E83.39 - OTHER DISORDERS OF PHOSPHORUS METABOLISM Assessment/Plan see problem list dvt ppx
--- NOTE | 2019-04-01 15:32 | PN ---
Progress Note (short form) - Note Progress Note: laying in bed no fevers less abdominal discomfort no diarrhea Vital Signs Period Temp Pulse Resp BP Sys/Paulson Pulse Ox Last 24 Hr 98.2 F-98.7 F 84-98 18-19 111-123/57-58 97 cor-rrr lungs clear abd soft, pelvic pain on exam ext no edema CBC, BMP 04/01/19 06:00 04/01/19 06:0 imp/reccd 79 yo female with metastatic lung cancer-on abraxane ct scan findings noted-proctocolitis with pelvic abscesses- IR drainage not possible due to location of the abscesses continue ertapenem/flagyl no diarrhea continue contact isolation overall prognosis is poor Problem List - Problems (1) Fever Code(s): R50.9 - FEVER, UNSPECIFIED (2) UTI (urinary tract infection) Code(s): N39.0 - URINARY TRACT INFECTION, SITE NOT SPECIFIED (3) Leukopenia Code(s): D72.819 - DECREASED WHITE BLOOD CELL COUNT, UNSPECIFIED (4) Metastatic adenocarcinoma Code(s): C79.9 - SECONDARY MALIGNANT NEOPLASM OF UNSPECIFIED SITE
--- NOTE | 2019-04-01 19:31 | PN ---
Progress Note (short form) - Note Progress Note: Patient seen and examined Spoke with daughter Pain still an issue Last Vital Signs Temp Pulse Resp BP Pulse Ox 98.2 F 86 18 123/57 L 97 04/01/19 09:00 04/01/19 09:00 04/01/19 09:00 04/01/19 09:00 03/31/19 21:00 Lungs- clear Cor_RSR Abd- suprapubic mass Ext- no significant edema CBC, BMP 04/01/19 06:00 04/01/19 06:00 Current Medications Generic Name Dose Route Start Last Admin Trade Name Freq PRN Reason Stop Dose Admin Acetaminophen 650 mg 03/26/19 00:27 03/27/19 09:35 Tylenol - PO 650 mg Q6H PRN Administration PAIN OR FEVER Enoxaparin Sodium 40 mg 03/26/19 10:00 04/01/19 09:52 Lovenox - SQ 40 mg DAILY [facility] Administration Fentanyl 1 patch 03/28/19 03:30 03/31/19 06:36 Duragesic 25mcg Patch - TD 04/04/19 03:21 1 patch Q72H [facility] Administration Metronidazole 500 mg in 100 mls @ 100 mls/hr 03/29/19 10:00 04/01/19 17:35 Flagyl 500mg Premixed Ivpb - IVPB 100 mls/hr Q8H-IV [facility] Administration Ertapenem 1 gm/ Sodium 50 mls @ 100 mls/hr 03/31/19 10:45 04/01/19 12:19 Chloride IVPB 100 mls/hr DAILY [facility] Administration Potassium Chloride 20 meq/ 1,010 mls @ 42 mls/hr 03/31/19 15:00 03/31/19 17: 40 Amino Acids IVPB 42 mls/hr Q24H [facility] Administration Insulin Aspart 1 vial 03/26/19 11:00 04/01/19 17:36 Novolog Vial Sliding Scale - SQ Not Given ACHS [facility] Protocol Miscellaneous 1 each 03/28/19 03:21 Duragesic Patch Waste MC PRN PRN PAIN Morphine Sulfate 15 mg 03/27/19 10:55 04/01/19 09:44 Msir - PO 15 mg Q6H PRN Administration PAIN LEVEL 4 - 6 Polyethylene Glycol 17 gm 03/28/19 10:00 04/01/19 09:45 Miralax (For Daily Use) - PO Not Given DAILY [facility] Potassium Phos/Sodium Phos 1 packet 04/01/19 14:00 04/01/19 14:29 Phos-Nak Packet - PO 1 packet TID [facility] Administration Rosuvastatin Calcium 5 mg 03/29/19 09:11 04/01/19 09:46 Crestor - PO 5 mg DAILY [facility] Administration Tramadol HCl 50 mg 03/27/19 10:55 03/31/19 00:07 Ultram - PO 50 mg Q8H PRN Administration PAIN Impression Metastatic lung ca Pain management Proctocolitis/ abscesses Antibiotics per ID Increase fentanyl
[2019-04-01] MEDS ORDERED: fentaNYL 12mcg/hr PATCH.TD72 TD SCH (19:45)
[2019-04-01 21:19] VITALS: BMI 24.2
[2019-04-02] MEDS: NAPH,MB-DB/K PH,MBDB POWDER PACKET PO SCH ×3 (06:16→22:31)
[2019-04-02] MEDS: POTASSIUM CHLORIDE 20 MEQ in AMINO ACIDS 4.25%/D5W 1,000 ML IVPB SCH (06:16)
[2019-04-02] MEDS: INSULIN SLIDING SCALE (NOVOLOG) 1 VIAL SQ SCH ×4 (06:17→21:30)
[2019-04-02 07:22] LABS: HEMATOCRIT 27.3 % (32.4-45.2); HEMOGLOBIN 8.9 GM/dL (10.7-15.3); MCH 27.9 pg (25.7-33.7); MCHC 32.8 g/dl (32.0-36.0); MEAN CELL VOLUME 85.2 fl (80-96); MEAN PLT VOLUME 6.6 fl (7.5-11.1); PLATELET COUNT 447 K/MM3 (134-434); RDW 17.1 % (11.6-15.6); WHITE BLOOD COUNT 6.5 K/mm3 (4.0-10.0)
[2019-04-02 07:48] LABS: ALBUMIN 1.7 g/dl (3.4-5.0); BILIRUBIN,TOTAL 0.3 mg/dL (0.2-1); CALCIUM 7.1 mg/dL (8.5-10.1); CREATININE 0.3 mg/dL (0.55-1.3); PHOSPHOROUS 1.3 mg/dL (2.5-4.9)
[2019-04-02 07:49] LABS: POTASSIUM 3.2 mmol/L (3.5-5.1)
[2019-04-02 07:55] LABS: BLOOD UREA NITROGEN 2.3 mg/dL (7-18)
[2019-04-02] MEDS: ROSUVASTATIN CA 5 MG TABLET (FP) PO SCH (09:36)
[2019-04-02] MEDS: ERTAPENEM SODIUM 1 GM in SODIUM CHLORIDE 50 ML IVPB SCH (09:36)
[2019-04-02] MEDS: ENOXAPARIN NA (PORCINE) 40 MG/0.4 ML DISP.SYRIN SQ SCH (09:36)
[2019-04-02] MEDS ORDERED: POTASSIUM CHLORIDE TABS 20 MEQ TABLET.ER (FP) PO ONE ×2 (10:05→14:05)
[2019-04-02] MEDS: POLYETHYLENE GLYCOL 3350 119 GM BTL PO SCH (11:00)
[2019-04-02] MEDS ORDERED: POTASSIUM CHLORIDE 20 MEQ in AMINO ACIDS 4.25%/D5W 1,000 ML IVPB SCH (13:10)
[2019-04-02] MEDS ORDERED: POTASSIUM PHOSPHATE 20 MM in SODIUM CHLORIDE 250 ML IVPB ONE (13:10)
--- NOTE | 2019-04-02 13:10 | PN ---
Progress Note, Physician History of Present Illness: Pt seen and examined at bedside. She is awake and alert. She denies shortness of breath. - Current Medication List Current Medications: Active Medications Acetaminophen (Tylenol -) 650 mg PO Q6H PRN PRN Reason: PAIN OR FEVER Last Admin: 03/27/19 09:35 Dose: 650 mg Enoxaparin Sodium (Lovenox -) 40 mg SQ DAILY [facility] Last Admin: 04/02/19 09:36 Dose: 40 mg Fentanyl (Duragesic 25mcg Patch -) 1 patch TD Q72H [facility] Stop: 04/04/19 03:21 Last Admin: 03/31/19 06:36 Dose: 1 patch Fentanyl (Duragesic 12mcg Patch -) 1 patch TD Q72H [facility] Stop: 04/08/19 19:35 Last Admin: 04/01/19 21:56 Dose: 1 patch Metronidazole (Flagyl 500mg Premixed Ivpb -) 500 mg in 100 mls @ 100 mls/hr IVPB Q8H-IV [facility] Last Admin: 04/02/19 09:37 Dose: 100 mls/hr Ertapenem 1 gm/ Sodium (Chloride) 50 mls @ 100 mls/hr IVPB DAILY [facility] Last Admin: 04/02/19 09:36 Dose: 100 mls/hr Potassium Chloride 20 meq/ (Amino Acids) 1,010 mls @ 42 mls/hr IVPB Q24H [facility] Last Admin: 04/02/19 06:16 Dose: 42 mls/hr Insulin Aspart (Novolog Vial Sliding Scale -) 1 vial SQ ACHS [facility]; Protocol Last Admin: 04/02/19 11:28 Dose: Not Given Miscellaneous (Duragesic Patch Waste) 1 each MC PRN PRN PRN Reason: PAIN Miscellaneous (Duragesic Patch Waste) 1 each MC PRN PRN PRN Reason: PAIN Morphine Sulfate (Msir -) 15 mg PO Q6H PRN PRN Reason: PAIN LEVEL 4 - 6 Last Admin: 04/01/19 22:01 Dose: 15 mg Polyethylene Glycol (Miralax (For Daily Use) -) 17 gm PO DAILY [facility] Last Admin: 04/02/19 11:00 Dose: 17 gm Potassium Phos/Sodium Phos (Phos-Nak Packet -) 1 packet PO TID [facility] Last Admin: 04/02/19 06:16 Dose: 1 packet Rosuvastatin Calcium (Crestor -) 5 mg PO DAILY [facility] Last Admin: 04/02/19 09:36 Dose: 5 mg Tramadol HCl (Ultram -) 50 mg PO Q8H PRN PRN Reason: PAIN Last Admin: 03/31/19 00:07 Dose: 50 mg - Objective Vital Signs: Vital Signs Temperature 98.0 F 04/02/19 11:00 Pulse Rate 87 04/02/19 11:00 Respiratory Rate 20 04/02/19 11:00 Blood Pressure 115/71 04/02/19 11:00 O2 Sat by Pulse Oximetry (%) 97 04/01/19 20:57 Constitutional: Yes: Calm Eyes: Yes: Conjunctiva Clear HENT: Yes: Atraumatic Neck: Yes: Supple Cardiovascular: Yes: S1, S2 Respiratory: Yes: CTA Bilaterally Gastrointestinal: Yes: Normal Bowel Sounds, Soft Genitourinary: Yes: WNL Musculoskeletal: Yes: WNL Edema: No Neurological: Yes: Oriented Psychiatric: Yes: Oriented Labs: CBC, BMP 04/02/19 06:45 04/02/19 06:45 INR, PTT INR 1.27 (0.83-1.09) H 03/31/19 08:10 Problem List - Problems (1) Hypophosphatemia Code(s): E83.39 - OTHER DISORDERS OF PHOSPHORUS METABOLISM Assessment/Plan Current Medications Generic Name Dose Route Start Last Admin Trade Name Freq PRN Reason Stop Dose Admin Acetaminophen 650 mg 03/26/19 00:27 03/27/19 09:35 Tylenol - PO 650 mg Q6H PRN Administration PAIN OR FEVER Enoxaparin Sodium 40 mg 03/26/19 10:00 04/02/19 09:36 Lovenox - SQ 40 mg DAILY [facility] Administration Fentanyl 1 patch 03/28/19 03:30 03/31/19 06:36 Duragesic 25mcg Patch - TD 04/04/19 03:21 1 patch Q72H [facility] Administration Fentanyl 1 patch 04/01/19 19:45 04/01/19 21:56 Duragesic 12mcg Patch - TD 04/08/19 19:35 1 patch Q72H [facility] Administration Metronidazole 500 mg in 100 mls @ 100 mls/hr 03/29/19 10:00 09/11/19 09:37 Flagyl 500mg Premixed Ivpb - IVPB 100 mls/hr Q8H-IV [facility] Administration Ertapenem 1 gm/ Sodium 50 mls @ 100 mls/hr 03/31/19 10:45 04/02/19 09:36 Chloride IVPB 100 mls/hr DAILY [facility] Administration Potassium Chloride 20 meq/ 1,010 mls @ 42 mls/hr 03/31/19 15:00 04/02/19 06: 16 Amino Acids IVPB 42 mls/hr Q24H [facility] Administration Insulin Aspart 1 vial 03/26/19 11:00 04/02/19 11:28 Novolog Vial Sliding Scale - SQ Not Given ACHS [facility] Protocol Miscellaneous 1 each 03/28/19 03:21 Duragesic Patch Waste MC PRN PRN PAIN Miscellaneous 1 each 04/01/19 19:34 Duragesic Patch Waste MC PRN PRN PAIN Morphine Sulfate 15 mg 03/27/19 10:55 04/01/19 22:01 Msir - PO 15 mg Q6H PRN Administration PAIN LEVEL 4 - 6 Polyethylene Glycol 17 gm 03/28/19 10:00 04/02/19 11:00 Miralax (For Daily Use) - PO 17 gm DAILY [facility] Administration Potassium Phos/Sodium Phos 1 packet 04/01/19 14:00 04/02/19 06:16 Phos-Nak Packet - PO 1 packet TID [facility] Administration Rosuvastatin Calcium 5 mg 03/29/19 09:11 04/02/19 09:36 Crestor - PO 5 mg DAILY [facility] Administration Tramadol HCl 50 mg 03/27/19 10:55 03/31/19 00:07 Ultram - PO 50 mg Q8H PRN Administration PAIN Laboratory Tests 04/02/19 06:45 Phosphorus 1.3 L Impression 1. hyponatremia 2. lung cancer 3. dm 4. hypokalemia 5. UTI 6. malnutrition Plan - replace phos - cont supplements - cont clinimix - encourage po intake - pain control - will follow
[2019-04-02] MEDS ORDERED: ONDANSETRON 4 MG/2 ML VIAL IVPUSH PRN (14:03)
--- NOTE | 2019-04-02 14:07 | PN ---
Progress Note, Physician Chief Complaint: UTI Metastatic Lung CA History of Present Illness: Previous notes and events reviewed awake and alert NAD sts feeling a little better today c/o nausea Stool OB neg CT scan results reviewed - Current Medication List Current Medications: Active Medications Acetaminophen (Tylenol -) 650 mg PO Q6H PRN PRN Reason: PAIN OR FEVER Last Admin: 03/27/19 09:35 Dose: 650 mg Enoxaparin Sodium (Lovenox -) 40 mg SQ DAILY [facility] Last Admin: 04/02/19 09:36 Dose: 40 mg Fentanyl (Duragesic 25mcg Patch -) 1 patch TD Q72H [facility] Fentanyl (Duragesic 12mcg Patch -) 1 patch TD Q72H [facility] Metronidazole (Flagyl 500mg Premixed Ivpb -) 500 mg in 100 mls @ 100 mls/hr IVPB Q8H-IV [facility] Last Admin: 04/02/19 09:37 Dose: 100 mls/hr Ertapenem 1 gm/ Sodium (Chloride) 50 mls @ 100 mls/hr IVPB DAILY [facility] Last Admin: 04/02/19 09:36 Dose: 100 mls/hr Potassium Phosphate 20 mm/ (Sodium Chloride) 256.6667 mls @ 62.5 mls/hr IVPB ONCE ONE Stop: 04/02/19 17:16 Potassium Chloride 20 meq/ (Amino Acids) 1,010 mls @ 75 mls/hr IVPB Q13H [facility] Insulin Aspart (Novolog Vial Sliding Scale -) 1 vial SQ ACHS [facility]; Protocol Last Admin: 04/02/19 11:28 Dose: Not Given Miscellaneous (Duragesic Patch Waste) 1 each PRN PRN PRN Reason: PAIN Miscellaneous (Duragesic Patch Waste) 1 each PRN PRN PRN Reason: PAIN Morphine Sulfate (Msir -) 15 mg PO Q6H PRN PRN Reason: PAIN LEVEL 4 - 6 Last Admin: 04/01/19 22:01 Dose: 15 mg Polyethylene Glycol (Miralax (For Daily Use) -) 17 gm PO DAILY [facility] Last Admin: 04/02/19 11:00 Dose: 17 gm Potassium Phos/Sodium Phos (Phos-Nak Packet -) 1 packet PO TID [facility] Last Admin: 04/02/19 06:16 Dose: 1 packet Rosuvastatin Calcium (Crestor -) 5 mg PO DAILY [facility] Last Admin: 04/02/19 09:36 Dose: 5 mg Tramadol HCl (Ultram -) 50 mg PO Q8H PRN PRN Reason: PAIN Last Admin: 03/31/19 00:07 Dose: 50 mg - Objective Vital Signs: Vital Signs Temperature 98.0 F 04/02/19 11:00 Pulse Rate 87 04/02/19 11:00 Respiratory Rate 20 04/02/19 11:00 Blood Pressure 115/71 04/02/19 11:00 O2 Sat by Pulse Oximetry (%) 97 04/01/19 20:57 Constitutional: Yes: No Distress, Calm Eyes: Yes: Conjunctiva Clear HENT: Yes: Atraumatic Cardiovascular: Yes: Regular Rate and Rhythm Respiratory: Yes: Regular, CTA Bilaterally Gastrointestinal: Yes: Normal Bowel Sounds, Soft Genitourinary: Yes: Incontinence Musculoskeletal: Yes: Muscle Weakness Extremities: Yes: WNL Edema: No Neurological: Yes: Alert, Pre-Existing Deficit Psychiatric: Yes: Alert Labs: CBC, BMP 04/02/19 06:45 04/02/19 06:45 INR, PTT INR 1.27 (0.83-1.09) H 03/31/19 08:10 Microbiology 03/25/19 18:25 Blood - Peripheral Venous Blood Culture - Final NO GROWTH AFTER 5 DAYS INCUBATION 03/25/19 17:42 Blood - Peripheral Venous Blood Culture - Final NO GROWTH AFTER 5 DAYS INCUBATION 03/25/19 17:56 Urine - Urine Clean Catch Urine Culture - Final Escherichia Coli Enterobacter Cloacae Problem List - Problems (1) Fever Assessment/Plan: -resolved -tylenol prn for temp >100F -UC positive -BC neg -CXR neg -ID on board -Ertapenem and Flagyl Code(s): R50.9 - FEVER, UNSPECIFIED (2) Abdominal pain Assessment/Plan: -GI on board -CT scan shows interval development of concentric wall thickening involving the rectosigmoid colon and possibly the ascending colon consistent with acute proctocolitis, asdociated development of 3 x 2cm and 1.7 x 1.5cm paracolic abscessesnoted along left border of sigmoid colon, development of diffuse urinary bladder wall thickening is seen suggestive of acute cystitis, mildly increased size of a focal mass noted within left lower anterior pelvic wall, 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 -IR consult was placed for possible IR drain but unable to be done 2/2 surrounding bowel -pain control -Flagyl -will need repeat CT scan to monitor if abscess has decreased after antibiotic use Code(s): R10.9 - UNSPECIFIED ABDOMINAL PAIN (3) Diabetes Assessment/Plan: -Diabetic diet -ISS -BGM ACHS Code(s): E11.9 - TYPE 2 DIABETES MELLITUS WITHOUT COMPLICATIONS (4) HLD (hyperlipidemia) Assessment/Plan: -Crestor Code(s): E78.5 - HYPERLIPIDEMIA, UNSPECIFIED (5) Hyponatremia Assessment/Plan: -Na 134 -improved -monitor electrolyte daily Code(s): E87.1 - HYPO-OSMOLALITY AND HYPONATREMIA (6) Metastatic lung cancer (metastasis from lung to other site) Assessment/Plan: -Oncology on board Code(s): C34.90 - MALIGNANT NEOPLASM OF UNSP PART OF UNSP BRONCHUS OR LUNG Qualifiers: Laterality: left Qualified Code(s): C34.92 - Malignant neoplasm of unspecified part of left bronchus or lung (7) UTI (urinary tract infection) Assessment/Plan: -ID on board -no leukocytosis -UA shows 2+ leuks -UC positive -contact precaution -Ertapenem Code(s): N39.0 - URINARY TRACT INFECTION, SITE NOT SPECIFIED (8) Frequent falls Assessment/Plan: -fall precaution -Head CT and Cervical Spine CT no acute pathology -PT Code(s): R29.6 - REPEATED FALLS (9) Anemia Assessment/Plan: -Hg 8.9 -monitor Hg daily -transfuse for Hg <8.0 Code(s): D64.9 - ANEMIA, UNSPECIFIED (10) Hypophosphatemia Assessment/Plan: -Renal on board -Phos 1.3 -Phos-NAK packet x 1 TID -monitor phosphorous level Code(s): E83.39 - OTHER DISORDERS OF PHOSPHORUS METABOLISM Assessment/Plan see problem list dvt ppx
[2019-04-02] MEDS ORDERED: PT OWN MED DRAWER 7, Y5N ONE (16:16)
[2019-04-02] MEDS: ACETAMINOPHEN 325 MG TABLET (FP) PO PRN (20:39)
[2019-04-03] MEDS: POTASSIUM CHLORIDE 20 MEQ in AMINO ACIDS 4.25%/D5W 1,000 ML IVPB SCH ×5 (02:15→15:50)
[2019-04-03] MEDS: NAPH,MB-DB/K PH,MBDB POWDER PACKET PO SCH ×3 (05:14→22:14)
[2019-04-03] MEDS: INSULIN SLIDING SCALE (NOVOLOG) 1 VIAL SQ SCH ×4 (07:36→22:14)
[2019-04-03 07:41] LABS: HEMATOCRIT 27.5 % (32.4-45.2); HEMOGLOBIN 9.1 GM/dL (10.7-15.3); MCH 28.1 pg (25.7-33.7); MCHC 33.2 g/dl (32.0-36.0); MEAN CELL VOLUME 84.5 fl (80-96); PLATELET COUNT 458 K/MM3 (134-434); RBC 3.25 M/mm3 (3.60-5.2); RDW 17.7 % (11.6-15.6); WHITE BLOOD COUNT 6.5 K/mm3 (4.0-10.0)
[2019-04-03 07:48] LABS: ALBUMIN 1.8 g/dl (3.4-5.0); BILIRUBIN,TOTAL 0.2 mg/dL (0.2-1); CALCIUM 7.2 mg/dL (8.5-10.1); CREATININE 0.3 mg/dL (0.55-1.3); MAGNESIUM 1.8 mg/dL (1.8-2.4); PHOSPHOROUS 1.4 mg/dL (2.5-4.9); POTASSIUM 3.7 mmol/L (3.5-5.1); TOT PROT 5.1 g/dl (6.4-8.2)
[2019-04-03 07:57] LABS: BLOOD UREA NITROGEN 2.3 mg/dL (7-18)
[2019-04-03] MEDS ORDERED: PT OWN MED DRAWER 7, Y5N ONE (10:40)
[2019-04-03] MEDS: ERTAPENEM SODIUM 1 GM in SODIUM CHLORIDE 50 ML IVPB SCH (10:49)
[2019-04-03] MEDS: ENOXAPARIN NA (PORCINE) 40 MG/0.4 ML DISP.SYRIN SQ SCH (10:49)
[2019-04-03] MEDS: POLYETHYLENE GLYCOL 3350 119 GM BTL PO SCH (10:52)
[2019-04-03] MEDS: ROSUVASTATIN CA 5 MG TABLET (FP) PO SCH (10:52)
[2019-04-03] MEDS: morphine SULFATE IMMEDIATE RELEASE 30 MG TAB PO PRN ×2 (11:11→17:43)
--- NOTE | 2019-04-03 11:18 | PN ---
Progress Note, Physician Chief Complaint: UTI Metastatic Lung CA History of Present Illness: Previous notes and events reviewed awake and alert NAD sts feeling a little better today c/o nausea Stool OB neg sts having "black" colored stool - Current Medication List Current Medications: Active Medications Acetaminophen (Tylenol -) 650 mg PO Q6H PRN PRN Reason: PAIN OR FEVER Last Admin: 04/02/19 20:39 Dose: 650 mg Enoxaparin Sodium (Lovenox -) 40 mg SQ DAILY [facility] Last Admin: 04/02/19 09:36 Dose: 40 mg Fentanyl (Duragesic 25mcg Patch -) 1 patch TD Q72H LYNN Fentanyl (Duragesic 12mcg Patch -) 1 patch TD Q72H LYNN Metronidazole (Flagyl 500mg Premixed Ivpb -) 500 mg in 100 mls @ 100 mls/hr IVPB Q8H-IV LYNN Last Admin: 04/03/19 01:16 Dose: 100 mls/hr Ertapenem 1 gm/ Sodium (Chloride) 50 mls @ 100 mls/hr IVPB DAILY [facility] Last Admin: 04/02/19 09:36 Dose: 100 mls/hr Potassium Chloride 20 meq/ (Amino Acids) 1,010 mls @ 75 mls/hr IVPB Q13H [facility] Last Admin: 04/03/19 07:36 Dose: Not Given Insulin Aspart (Novolog Vial Sliding Scale -) 1 vial SQ ACHS [facility]; Protocol Last Admin: 04/03/19 07:36 Dose: Not Given Miscellaneous (Duragesic Patch Waste) 1 each PRN PRN PRN Reason: PAIN Miscellaneous (Duragesic Patch Waste) 1 each PRN PRN PRN Reason: PAIN Morphine Sulfate (Msir -) 15 mg PO Q6H PRN PRN Reason: PAIN LEVEL 4 - 6 Last Admin: 04/01/19 22:01 Dose: 15 mg Ondansetron HCl (Zofran Injection) 4 mg IVPUSH Q8H PRN PRN Reason: NAUSEA Polyethylene Glycol (Miralax (For Daily Use) -) 17 gm PO DAILY [facility] Last Admin: 04/02/19 11:00 Dose: 17 gm Potassium Phos/Sodium Phos (Phos-Nak Packet -) 1 packet PO TID [facility] Last Admin: 04/03/19 05:14 Dose: 1 packet Rosuvastatin Calcium (Crestor -) 5 mg PO DAILY L[facility]NN Last Admin: 04/02/19 09:36 Dose: 5 mg - Objective Vital Signs: Vital Signs Temperature 98.0 F 04/03/19 05:55 Pulse Rate 88 04/03/19 05:55 Respiratory Rate 20 04/03/19 05:55 Blood Pressure 113/60 04/03/19 05:55 O2 Sat by Pulse Oximetry (%) 97 04/02/19 21:00 Constitutional: Yes: No Distress, Calm Eyes: Yes: Conjunctiva Clear HENT: Yes: Atraumatic Cardiovascular: Yes: Regular Rate and Rhythm Respiratory: Yes: Regular, CTA Bilaterally Gastrointestinal: Yes: Normal Bowel Sounds, Soft, Tenderness (diffuse) Musculoskeletal: Yes: Muscle Weakness Extremities: Yes: WNL Edema: No Neurological: Yes: Alert, Oriented Psychiatric: Yes: Alert, Oriented Labs: CBC, BMP 04/03/19 06:55 04/03/19 06:55 INR, PTT INR 1.27 (0.83-1.09) H 03/31/19 08:10 Microbiology 03/25/19 18:25 Blood - Peripheral Venous Blood Culture - Final NO GROWTH AFTER 5 DAYS INCUBATION 03/25/19 17:42 Blood - Peripheral Venous Blood Culture - Final NO GROWTH AFTER 5 DAYS INCUBATION 03/25/19 17:56 Urine - Urine Clean Catch Urine Culture - Final Escherichia Coli Enterobacter [place]ae Problem List - Problems (1) Fever Assessment/Plan: -resolved -tylenol prn for temp >100F -UC positive -BC neg -CXR neg -ID on board -Ertapenem and Flagyl (2) Abdominal pain Assessment/Plan: -GI on board -CT scan shows interval development of concentric wall thickening involving the rectosigmoid colon and possibly the ascending colon consistent with acute proctocolitis, asdociated development of 3 x 2cm and 1.7 x 1.5cm paracolic abscessesnoted along left border of sigmoid colon, development of diffuse urinary bladder wall thickening is seen suggestive of acute cystitis, mildly increased size of a focal mass noted within left lower anterior pelvic wall, 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 -IR consult was placed for possible IR drain but unable to be done 2/2 surrounding bowel -pain control -Flagyl -repeat CT scan ordered Code(s): R10.9 - UNSPECIFIED ABDOMINAL PAIN (3) Diabetes Assessment/Plan: -Diabetic diet -ISS -BGM ACHS Code(s): E11.9 - TYPE 2 DIABETES MELLITUS WITHOUT COMPLICATIONS (4) HLD (hyperlipidemia) Assessment/Plan: -Crestor Code(s): E78.5 - HYPERLIPIDEMIA, UNSPECIFIED (5) Hyponatremia Assessment/Plan: -Na 135 -improved -monitor electrolyte daily Code(s): E87.1 - HYPO-OSMOLALITY AND HYPONATREMIA (6) Metastatic lung cancer (metastasis from lung to other site) Assessment/Plan: -Oncology on board -palliative consult Code(s): C34.90 - MALIGNANT NEOPLASM OF UNSP PART OF UNSP BRONCHUS OR LUNG Qualifiers: Laterality: left Qualified Code(s): C34.92 - Malignant neoplasm of unspecified part of left bronchus or lung (7) UTI (urinary tract infection) Assessment/Plan: -ID on board -no leukocytosis -UA shows 2+ leuks -UC positive -contact precaution -Ertapenem Code(s): N39.0 - URINARY TRACT INFECTION, SITE NOT SPECIFIED (8) Frequent falls Assessment/Plan: -fall precaution -Head CT and Cervical Spine CT no acute pathology -PT Code(s): R29.6 - REPEATED FALLS (9) Anemia Assessment/Plan: -Hg 9.1 -monitor Hg daily -transfuse for Hg <8.0 Code(s): D64.9 - ANEMIA, UNSPECIFIED (10) Hypophosphatemia Assessment/Plan: -Renal on board -Phos 1.4 -Phos-NAK packet x 1 TID -monitor phosphorous level Code(s): E83.39 - OTHER DISORDERS OF PHOSPHORUS METABOLISM (11) Poor appetite Assessment/Plan: -Clinimix -add Ensure -Dietary consult Code(s): R63.0 - ANOREXIA Assessment/Plan see problem list dvt ppx
--- NOTE | 2019-04-03 19:20 | PN ---
Progress Note, Physician History of Present Illness: Pt seen and examined at bedside. SHe has poor intake. - Current Medication List Current Medications: Active Medications Acetaminophen (Tylenol -) 650 mg PO Q6H PRN PRN Reason: PAIN OR FEVER Last Admin: 04/02/19 20:39 Dose: 650 mg Enoxaparin Sodium (Lovenox -) 40 mg SQ DAILY [facility] Last Admin: 04/03/19 10:49 Dose: 40 mg Fentanyl (Duragesic 25mcg Patch -) 1 patch TD Q72H LYNN Fentanyl (Duragesic 12mcg Patch -) 1 patch TD Q72H LYNN Hydrocortisone (Anusol 2.5% Hc Cream -) 1 applic TP BID [facility] Metronidazole (Flagyl 500mg Premixed Ivpb -) 500 mg in 100 mls @ 100 mls/hr IVPB Q8H-IV L[facility]NN Last Admin: 04/03/19 17:00 Dose: 100 mls/hr Ertapenem 1 gm/ Sodium (Chloride) 50 mls @ 100 mls/hr IVPB DAILY [facility] Last Admin: 04/03/19 10:49 Dose: 100 mls/hr Potassium Chloride 20 meq/ (Amino Acids) 1,010 mls @ 75 mls/hr IVPB Q13H [facility] Last Admin: 04/03/19 15:50 Dose: Not Given Insulin Aspart (Novolog Vial Sliding Scale -) 1 vial SQ ACHS [facility]; Protocol Last Admin: 04/03/19 17:00 Dose: Not Given Miscellaneous (Duragesic Patch Waste) 1 each MC PRN PRN PRN Reason: PAIN Miscellaneous (Duragesic Patch Waste) 1 each MC PRN PRN PRN Reason: PAIN Morphine Sulfate (Msir -) 15 mg PO Q6H PRN PRN Reason: PAIN LEVEL 4 - 6 Last Admin: 04/03/19 17:43 Dose: 15 mg Ondansetron HCl (Zofran Injection) 4 mg IVPUSH Q8H PRN PRN Reason: NAUSEA Polyethylene Glycol (Miralax (For Daily Use) -) 17 gm PO DAILY [facility] Last Admin: 04/03/19 10:52 Dose: 17 gm Potassium Phos/Sodium Phos (Phos-Nak Packet -) 1 packet PO TID [facility] Last Admin: 04/03/19 15:00 Dose: 1 packet Rosuvastatin Calcium (Crestor -) 5 mg PO DAILY [facility] Last Admin: 04/03/19 10:52 Dose: 5 mg - Objective Vital Signs: Vital Signs Temperature 98.2 F 04/03/19 11:00 Pulse Rate 93 H 04/03/19 11:00 Respiratory Rate 04/03/19 11:00 Blood Pressure 114/62 04/03/19 11:00 O2 Sat by Pulse Oximetry (%) 97 04/03/19 10:00 Constitutional: Yes: Calm Eyes: Yes: Conjunctiva Clear HENT: Yes: Atraumatic Neck: Yes: Supple Cardiovascular: Yes: S1, S2 Respiratory: Yes: CTA Bilaterally Gastrointestinal: Yes: Soft Genitourinary: Yes: WNL Musculoskeletal: Yes: WNL Edema: No Neurological: Yes: Oriented Psychiatric: Yes: Oriented Labs: CBC, BMP 04/03/19 06:55 04/03/19 06:55 INR, PTT INR 1.27 (0.83-1.09) H 03/31/19 08:10 Problem List - Problems (1) Hypophosphatemia Code(s): E83.39 - OTHER DISORDERS OF PHOSPHORUS METABOLISM Assessment/Plan Current Medications Generic Name Dose Route Start Last Admin Trade Name Freq PRN Reason Stop Dose Admin Acetaminophen 650 mg 03/26/19 00:27 04/02/19 20:39 Tylenol - PO 650 mg Q6H PRN Administration PAIN OR FEVER Enoxaparin Sodium 40 mg 03/26/19 10:00 04/03/19 10:49 Lovenox - SQ 40 mg DAILY LYNN Administration Fentanyl 1 patch 04/03/19 22:00 Duragesic 25mcg Patch - TD Q72H LYNN Fentanyl 1 patch 04/03/19 22:00 Duragesic 12mcg Patch - TD Q72H LYNN Hydrocortisone 1 applic 04/03/19 22:00 Anusol 2.5% Hc Cream - TP BID LYNN Metronidazole 500 mg in 100 mls @ 100 mls/hr 03/29/19 10:00 04/03/19 17:00 Flagyl 500mg Premixed Ivpb - IVPB 100 mls/hr Q8H-IV LYNN Administration Ertapenem 1 gm/ Sodium 50 mls @ 100 mls/hr 03/31/19 10:45 04/03/19 10:49 Chloride IVPB 100 mls/hr DAILY LYNN Administration Potassium Chloride 20 meq/ 1,010 mls @ 75 mls/hr 04/02/19 13:12 04/03/19 15: 50 Amino Acids IVPB Not Given Q13H [facility] Insulin Aspart 1 vial 03/26/19 11:00 04/03/19 17:00 Novolog Vial Sliding Scale - SQ Not Given ACHS [facility] Protocol Miscellaneous 1 each 03/28/19 03:21 Duragesic Patch Waste MC PRN PRN PAIN Miscellaneous 1 each 04/01/19 19:34 Duragesic Patch Waste MC PRN PRN PAIN Morphine Sulfate 15 mg 03/27/19 10:55 04/03/19 17:43 Msir - PO 15 mg Q6H PRN Administration PAIN LEVEL 4 - 6 Ondansetron HCl 4 mg 04/02/19 14:03 Zofran Injection IVPUSH Q8H PRN NAUSEA Polyethylene Glycol 17 gm 03/28/19 10:00 04/03/19 10:52 Miralax (For Daily Use) - PO 17 gm DAILY LYNN Administration Potassium Phos/Sodium Phos 1 packet 04/01/19 14:00 04/03/19 15:00 Phos-Nak Packet - PO 1 packet TID LYNN Administration Rosuvastatin Calcium 5 mg 03/29/19 09:11 04/03/19 10:52 Crestor - PO 5 mg DAILY LYNN Administration Impression 1. hyponatremia 2. lung cancer 3. DM 4. hypokalemia 5. UTI 6. malnutrition Plan - replace phos - cont clinimix, pt tolerating increased rate - encourage po intake, spoke pt about diet - pain control
[2019-04-03] MEDS ORDERED: POTASSIUM PHOSPHATE 20 MM in SODIUM CHLORIDE 250 ML IVPB ONE (20:00)
--- NOTE | 2019-04-03 20:06 | PN ---
Progress Note (short form) - Note Progress Note: Patient seen and examined Pain still an issue Lengthy family discussion with multiple members about the progressive nature of her disease. Continuing on antibiotic therapy.
[2019-04-03] MEDS: HYDROCORTISONE 2.5% TOPICAL CREAM 30 GM TUBE TP SCH (21:32)
[2019-04-03] MEDS: FENTANYL PATCH WASTE MC PRN (23:00)
[2019-04-03] MEDS: fentaNYL 25mcg/hr PATCH.TD72 TD SCH (23:00)
[2019-04-04] MEDS: fentaNYL 12mcg/hr PATCH.TD72 TD SCH (00:35)
[2019-04-04] MEDS ORDERED: PT OWN MED DRAWER 7, Y5N ONE ×2 (00:59→09:54)
[2019-04-04] MEDS: POTASSIUM CHLORIDE 20 MEQ in AMINO ACIDS 4.25%/D5W 1,000 ML IVPB SCH ×2 (06:24→12:35)
[2019-04-04] MEDS: INSULIN SLIDING SCALE (NOVOLOG) 1 VIAL SQ SCH ×4 (06:25→21:19)
[2019-04-04] MEDS: NAPH,MB-DB/K PH,MBDB POWDER PACKET PO SCH ×3 (06:27→21:19)
--- NOTE | 2019-04-04 07:32 | PN.GI ---
GI Progress Note Subjective: Patient complain of rectal pain and black colored stool. Initiial stool OB neg and last Hg noted to be 9.1. Denies nausea or vomiting, but continue with lower abdominal pain. Repeat CT scan performed yesterday, official read pending. - Objective Vital Signs: Vital Signs Temperature 98.5 F 04/04/19 05:37 Pulse Rate 85 04/04/19 05:37 Respiratory Rate 18 04/04/19 05:37 Blood Pressure 114/48 L 04/04/19 05:37 O2 Sat by Pulse Oximetry (%) 98 04/03/19 21:00 Constitutional: No Distress, Calm Eyes: Yes: Conjunctiva Clear HENT: Yes: Atraumatic Cardiovascular: Yes: Regular Rate and Rhythm Respiratory: Yes: Regular, CTA Bilaterally Gastrointestinal Inspection: Yes: WNL. No: Ascites, Distention, Hernia, Scars, Other ...Auscultate: Yes: Normoactive Bowel Sounds. No: Hyperactive Bowel Sounds, Hypoactive Bowel Sounds, No Bowel Sounds, Other ...Palpate: Yes: Soft, Tenderness (diffuse). No: Firm/Rigid, Guarding, Hepatomegaly, Mass, Pulsatile Mass, Splenomegaly, Tenderness, Epigastium, Tenderness, Rebound, Other ...Percussion: Yes: Tympanitic. No: Dullness, Fluid Wave, Other Neurological: Yes: Alert, Oriented Psychiatric: Yes: Alert, Oriented Labs: CBC, BMP 04/03/19 06:55 04/03/19 06:55 INR, PTT INR 1.27 (0.83-1.09) H 03/31/19 08:10 Active Medications Generic Name Dose Route Start Last Admin Trade Name Zandra PRN Reason Stop Dose Admin Acetaminophen 650 mg 03/26/19 00:27 04/02/19 20:39 Tylenol - PO 650 mg Q6H PRN Administration PAIN OR FEVER Enoxaparin Sodium 40 mg 03/26/19 10:00 04/03/19 10:49 Lovenox - SQ 40 mg DAILY LYNN Administration Fentanyl 1 patch 04/03/19 22:00 04/03/19 23:00 Duragesic 25mcg Patch - TD 1 patch Q72H LYNN Administration Fentanyl 1 patch 04/03/19 22:00 04/04/19 00:35 Duragesic 12mcg Patch - TD 1 patch Q72H LYNN Administration Hydrocortisone 1 applic 04/03/19 22:00 04/03/19 21:32 Anusol 2.5% Hc Cream - TP 1 applic BID LYNN Administration Metronidazole 500 mg in 100 mls @ 100 mls/hr 03/29/19 10:00 04/04/19 01:04 Flagyl 500mg Premixed Ivpb - IVPB 100 mls/hr Q8H-IV LYNN Administration Ertapenem 1 gm/ Sodium 50 mls @ 100 mls/hr 03/31/19 10:45 04/03/19 10:49 Chloride IVPB 100 mls/hr DAILY LYNN Administration Potassium Chloride 20 meq/ 1,010 mls @ 75 mls/hr 04/02/19 13:12 04/04/19 06: 24 Amino Acids IVPB Not Given Q13H LYNN Insulin Aspart 1 vial 03/26/19 11:00 04/04/19 06:25 Novolog Vial Sliding Scale - SQ Not Given ACHS [facility] Protocol Miscellaneous 1 each 03/28/19 03:21 Duragesic Patch Waste MC PRN PRN PAIN Miscellaneous 1 each 04/01/19 19:34 04/03/19 23:00 Duragesic Patch Waste MC 1 each PRN PRN Administration PAIN Morphine Sulfate 15 mg 03/27/19 10:55 04/03/19 17:43 Msir - PO 15 mg Q6H PRN Administration PAIN LEVEL 4 - 6 Ondansetron HCl 4 mg 04/02/19 14:03 Zofran Injection IVPUSH Q8H PRN NAUSEA Polyethylene Glycol 17 gm 03/28/19 10:00 04/03/19 10:52 Miralax (For Daily Use) - PO 17 gm DAILY [facility]NN Administration Potassium Phos/Sodium Phos 1 packet 04/01/19 14:00 04/04/19 06:27 Phos-Nak Packet - PO 1 packet TID LYNN Administration Rosuvastatin Calcium 5 mg 03/29/19 09:11 04/03/19 10:52 Crestor - PO 5 mg DAILY [facility]NN Administration Problem List - Problems (1) Abdominal pain Assessment/Plan: -CT scan reviewed and shows pericolonic abscess 3 x 2cm -continue IV ABT -repeat CT scan done, awaiting official results -ID recommendation appreciated Code(s): R10.9 - UNSPECIFIED ABDOMINAL PAIN (2) Diarrhea Assessment/Plan: -Stool culture, Cdiff, Calpoprectin ordered Code(s): R19.7 - DIARRHEA, UNSPECIFIED (3) Rectal pain Assessment/Plan: >Annusol cream BID Code(s): K62.89 - OTHER SPECIFIED DISEASES OF ANUS AND RECTUM
[2019-04-04 09:32] LABS: ALBUMIN 1.8 g/dl (3.4-5.0); BILIRUBIN,TOTAL 0.2 mg/dL (0.2-1); BLOOD UREA NITROGEN 6.1 mg/dL (7-18); CALCIUM 7.5 mg/dL (8.5-10.1); CREATININE 0.4 mg/dL (0.55-1.3); PHOSPHOROUS 2.1 mg/dL (2.5-4.9); POTASSIUM 4.5 mmol/L (3.5-5.1); TOT PROT 5.3 g/dl (6.4-8.2)
[2019-04-04 09:42] LABS: HEMATOCRIT 28.1 % (32.4-45.2); HEMOGLOBIN 9.3 GM/dL (10.7-15.3); MCHC 33.3 g/dl (32.0-36.0); MEAN CELL VOLUME 84.2 fl (80-96); MEAN PLT VOLUME 6.9 fl (7.5-11.1); PLATELET COUNT 465 K/MM3 (134-434); RBC 3.33 M/mm3 (3.60-5.2); RDW 17.5 % (11.6-15.6); WHITE BLOOD COUNT 6.4 K/mm3 (4.0-10.0)
[2019-04-04] MEDS: ERTAPENEM SODIUM 1 GM in SODIUM CHLORIDE 50 ML IVPB SCH (09:57)
[2019-04-04] MEDS: ROSUVASTATIN CA 5 MG TABLET (FP) PO SCH (09:57)
[2019-04-04] MEDS: HYDROCORTISONE 2.5% TOPICAL CREAM 30 GM TUBE TP SCH ×2 (09:58→21:20)
[2019-04-04] MEDS: ENOXAPARIN NA (PORCINE) 40 MG/0.4 ML DISP.SYRIN SQ SCH (10:00)
[2019-04-04] MEDS: POLYETHYLENE GLYCOL 3350 119 GM BTL PO SCH (10:00)
--- NOTE | 2019-04-04 14:51 | PN ---
Progress Note, Physician History of Present Illness: Pt seen and examined at bedside. She is awake and alert. She feels that her po intake is improved. - Current Medication List Current Medications: Active Medications Acetaminophen (Tylenol -) 650 mg PO Q6H PRN PRN Reason: PAIN OR FEVER Last Admin: 04/02/19 20:39 Dose: 650 mg Enoxaparin Sodium (Lovenox -) 40 mg SQ DAILY [facility] Last Admin: 04/04/19 10:00 Dose: 40 mg Fentanyl (Duragesic 25mcg Patch -) 1 patch TD Q72H [facility] Last Admin: 04/03/19 23:00 Dose: 1 patch Fentanyl (Duragesic 12mcg Patch -) 1 patch TD Q72H [facility] Last Admin: 04/04/19 00:35 Dose: 1 patch Hydrocortisone (Anusol 2.5% Hc Cream -) 1 applic TP BID [facility] Last Admin: 04/04/19 09:58 Dose: 1 applic Metronidazole (Flagyl 500mg Premixed Ivpb -) 500 mg in 100 mls @ 100 mls/hr IVPB Q8H-IV [facility] Last Admin: 04/04/19 09:57 Dose: 100 mls/hr Ertapenem 1 gm/ Sodium (Chloride) 50 mls @ 100 mls/hr IVPB DAILY [facility] Last Admin: 04/04/19 09:57 Dose: 100 mls/hr Potassium Chloride 20 meq/ (Amino Acids) 1,010 mls @ 75 mls/hr IVPB Q13H [facility] Last Admin: 04/04/19 12:35 Dose: 75 mls/hr Insulin Aspart (Novolog Vial Sliding Scale -) [address] [facility]; Protocol Last Admin: 04/04/19 10:37 Dose: Not Given Miscellaneous (Duragesic Patch Waste) 1 each MC PRN PRN PRN Reason: PAIN Miscellaneous (Duragesic Patch Waste) 1 each MC PRN PRN PRN Reason: PAIN Last Admin: 04/03/19 23:00 Dose: 1 each Morphine Sulfate (Msir -) 15 mg PO Q6H PRN PRN Reason: PAIN LEVEL 4 - 6 Last Admin: 04/03/19 17:43 Dose: 15 mg Ondansetron HCl (Zofran Injection) 4 mg IVPUSH Q8H PRN PRN Reason: NAUSEA Polyethylene Glycol (Miralax (For Daily Use) -) 17 gm PO DAILY [facility] Last Admin: 04/04/19 10:00 Dose: 17 gm Potassium Phos/Sodium Phos (Phos-Nak Packet -) 1 packet PO TID [facility] Last Admin: 04/04/19 06:27 Dose: 1 packet Rosuvastatin Calcium (Crestor -) 5 mg PO DAILY [facility] Last Admin: 04/04/19 09:57 Dose: 5 mg - Objective Vital Signs: Vital Signs Temperature 98.9 F 04/04/19 10:00 Pulse Rate 82 04/04/19 10:00 Respiratory Rate 20 04/04/19 10:00 Blood Pressure 107/65 04/04/19 10:00 O2 Sat by Pulse Oximetry (%) 95 04/04/19 10:00 Constitutional: Yes: Calm Eyes: Yes: Conjunctiva Clear HENT: Yes: Atraumatic Neck: Yes: Supple Cardiovascular: Yes: S1, S2 Respiratory: Yes: CTA Bilaterally Gastrointestinal: Yes: Soft Genitourinary: Yes: WNL Musculoskeletal: Yes: WNL Edema: No Neurological: Yes: Oriented Psychiatric: Yes: Oriented Labs: CBC, BMP 04/04/19 07:53 04/04/19 07:53 INR, PTT INR 1.27 (0.83-1.09) H 03/31/19 08:10 Problem List - Problems (1) Hypophosphatemia Code(s): E83.39 - OTHER DISORDERS OF PHOSPHORUS METABOLISM Assessment/Plan Current Medications Generic Name Dose Route Start Last Admin Trade Name Freq PRN Reason Stop Dose Admin Acetaminophen 650 mg 03/26/19 00:27 04/02/19 20:39 Tylenol - PO 650 mg Q6H PRN Administration PAIN OR FEVER Enoxaparin Sodium 40 mg 03/26/19 10:00 04/04/19 10:00 Lovenox - SQ 40 mg DAILY [facility] Administration Fentanyl 1 patch 04/03/19 22:00 04/03/19 23:00 Duragesic 25mcg Patch - TD 1 patch Q72H [facility]NN Administration Fentanyl 1 patch 04/03/19 22:00 04/04/19 00:35 Duragesic 12mcg Patch - TD 1 patch Q72H [facility]NN Administration Hydrocortisone 1 applic 04/03/19 22:00 04/04/19 09:58 Anusol 2.5% Hc Cream - TP 1 applic BID [facility]YNN Administration Metronidazole 500 mg in 100 mls @ 100 mls/hr 03/29/19 10:00 04/04/19 09:57 Flagyl 500mg Premixed Ivpb - IVPB 100 mls/hr Q8H-IV [facility]NN Administration Ertapenem 1 gm/ Sodium 50 mls @ 100 mls/hr 03/31/19 10:45 04/04/19 09:57 Chloride IVPB 100 mls/hr DAILY [facility] Administration Potassium Chloride 20 meq/ 1,010 mls @ 75 mls/hr 04/02/19 13:12 04/04/19 12: 35 Amino Acids IVPB 75 mls/hr Q13H [facility]NN Administration Insulin Aspart 1 vial 03/26/19 11:00 04/04/19 10:37 Novolog Vial Sliding Scale - SQ Not Given ACHS [facility] Protocol Miscellaneous 1 each 03/28/19 03:21 Duragesic Patch Waste MC PRN PRN PAIN Miscellaneous 1 each 04/01/19 19:34 04/03/19 23:00 Duragesic Patch Waste MC 1 each PRN PRN Administration PAIN Morphine Sulfate 15 mg 03/27/19 10:55 04/03/19 17:43 Msir - PO 15 mg Q6H PRN Administration PAIN LEVEL 4 - 6 Ondansetron HCl 4 mg 04/02/19 14:03 Zofran Injection IVPUSH Q8H PRN NAUSEA Polyethylene Glycol 17 gm 03/28/19 10:00 04/04/19 10:00 Miralax (For Daily Use) - PO 17 gm DAILY [facility] Administration Potassium Phos/Sodium Phos 1 packet 04/01/19 14:00 04/04/19 06:27 Phos-Nak Packet - PO 1 packet TID LYNN Administration Rosuvastatin Calcium 5 mg 03/29/19 09:11 04/04/19 09:57 Crestor - PO 5 mg DAILY [facility]NN Administration Impression 1. hyponatremia 2. lung cancer 3. DM 4. hypokalemia 5. UTI 6. malnutrition Plan - will give more phos - cont clinimix until tomorrow - monitor lytes and renal function - will follow PRN - pain control
[2019-04-04] MEDS ORDERED: SODIUM PHOSPHATE - 20 MM in SODIUM CHLORIDE 500 ML IVPB ONE (15:00)
--- NOTE | 2019-04-04 15:10 | PN ---
Progress Note (short form) - Note Progress Note: laying in bed sacral pain no diarrhea less abdominal pain Vital Signs Period Temp Pulse Resp BP Sys/Paulson Pulse Ox Last 24 Hr 98.2 F-98.9 F 82-87 18-20 103-114/48-65 95-98 cor-rrr lungs clear abd flat, decreased pelvic pain on exam, masses unchanged ext no edema CBC, BMP 04/04/19 07:53 04/04/19 07:53 Microbiology 03/25/19 18:25 Blood - Peripheral Venous Blood Culture - Final NO GROWTH AFTER 5 DAYS INCUBATION 03/25/19 17:42 Blood - Peripheral Venous Blood Culture - Final NO GROWTH AFTER 5 DAYS INCUBATION 03/25/19 17:56 Urine - Urine Clean Catch Urine Culture - Final Escherichia Coli Enterobacter Cloacae imp/reccd 79 yo female with metastatic lung cancer-on abraxane no diarrhea repeat ct with some improvement of the collections, protocolitis and cystitis unchanged- ?secondary to radiation continue ertapenem/flagyl day #9 f/u with GI suspect sacral miller due to matthew metastasis noted on ct scan continue contact isolation overall prognosis is poor Problem List - Problems (1) Fever Code(s): R50.9 - FEVER, UNSPECIFIED (2) UTI (urinary tract infection) Code(s): N39.0 - URINARY TRACT INFECTION, SITE NOT SPECIFIED Qualifiers: Urinary tract infection type: site unspecified Hematuria presence: with hematuria Qualified Code(s): N39.0 - Urinary tract infection, site not specified; R31.9 - Hematuria, unspecified (3) Leukopenia Code(s): D72.819 - DECREASED WHITE BLOOD CELL COUNT, UNSPECIFIED (4) Metastatic adenocarcinoma Code(s): C79.9 - SECONDARY MALIGNANT NEOPLASM OF UNSPECIFIED SITE
--- NOTE | 2019-04-04 15:29 | PN ---
Progress Note, Physician Chief Complaint: pateint awake alert on clinimix - Current Medication List Current Medications: Active Medications Acetaminophen (Tylenol -) 650 mg PO Q6H PRN PRN Reason: PAIN OR FEVER Last Admin: 04/02/19 20:39 Dose: 650 mg Enoxaparin Sodium (Lovenox -) 40 mg SQ DAILY [facility] Last Admin: 04/04/19 10:00 Dose: 40 mg Fentanyl (Duragesic 25mcg Patch -) 1 patch TD Q72H [facility] Last Admin: 04/03/19 23:00 Dose: 1 patch Fentanyl (Duragesic 12mcg Patch -) 1 patch TD Q72H [facility] Last Admin: 04/04/19 00:35 Dose: 1 patch Hydrocortisone (Anusol 2.5% Hc Cream -) 1 applic TP BID [facility] Last Admin: 04/04/19 09:58 Dose: 1 applic Metronidazole (Flagyl 500mg Premixed Ivpb -) 500 mg in 100 mls @ 100 mls/hr IVPB Q8H-IV [facility] Last Admin: 04/04/19 09:57 Dose: 100 mls/hr Ertapenem 1 gm/ Sodium (Chloride) 50 mls @ 100 mls/hr IVPB DAILY [facility] Last Admin: 04/04/19 09:57 Dose: 100 mls/hr Sodium Phosphate 20 mm/ Sodium (Chloride) 506.6667 mls @ 63.333 mls/hr IVPB ONCE ONE Stop: 04/04/19 22:59 Amino Acids (Clinimix -) 1,000 mls @ 65 mls/hr IV Q24H [facility] Stop: 04/05/19 14:59 Insulin Aspart (Novolog Vial Sliding Scale -) 1 vial SQ ACHS [facility]; Protocol Last Admin: 04/04/19 10:37 Dose: Not Given Miscellaneous (Duragesic Patch Waste) 1 each MC PRN PRN PRN Reason: PAIN Miscellaneous (Duragesic Patch Waste) 1 each MC PRN PRN PRN Reason: PAIN Last Admin: 04/03/19 23:00 Dose: 1 each Morphine Sulfate (Msir -) 15 mg PO Q6H PRN PRN Reason: PAIN LEVEL 4 - 6 Last Admin: 04/03/19 17:43 Dose: 15 mg Ondansetron HCl (Zofran Injection) 4 mg IVPUSH Q8H PRN PRN Reason: NAUSEA Polyethylene Glycol (Miralax (For Daily Use) -) 17 gm PO DAILY [facility] Last Admin: 04/04/19 10:00 Dose: 17 gm Potassium Phos/Sodium Phos (Phos-Nak Packet -) 1 packet PO TID [facility] Stop: 04/06/19 10:00 Last Admin: 04/04/19 15:06 Dose: 1 packet Rosuvastatin Calcium (Crestor -) 5 mg PO DAILY [facility] Last Admin: 04/04/19 09:57 Dose: 5 mg - Objective Vital Signs: Vital Signs Temperature 98.6 F 04/04/19 15:25 Pulse Rate 81 04/04/19 15:25 Respiratory Rate 20 04/04/19 15:25 Blood Pressure 111/58 L 04/04/19 15:25 O2 Sat by Pulse Oximetry (%) 95 04/04/19 10:00 Constitutional: Yes: Calm, Thin Cardiovascular: Yes: Regular Rate and Rhythm, S1, S2 Respiratory: Yes: CTA Bilaterally Gastrointestinal: Yes: Normal Bowel Sounds, Soft Edema: No Neurological: Yes: Alert Labs: CBC, BMP 04/04/19 07:53 04/04/19 07:53 INR, PTT INR 1.27 (0.83-1.09) H 03/31/19 08:10 Problem List - Problems (1) Abdominal pain Assessment/Plan: ct scan noted slight decrase in pericolonic abscess iv abx per ID on clinimix Code(s): R10.9 - UNSPECIFIED ABDOMINAL PAIN (2) Hypophosphatemia Assessment/Plan: rpeleted recheck in AM Code(s): E83.39 - OTHER DISORDERS OF PHOSPHORUS METABOLISM
[2019-04-04] MEDS ORDERED: MAGNESIUM SULF 50% (8.12 MEQ/2 ML-1 GM VIAL) IVPB ONE (15:32)
[2019-04-04] MEDS ORDERED: POTASSIUM PHOSPHATE 20 MM in SODIUM CHLORIDE 250 ML IVPB ONE (15:32)
[2019-04-04] MEDS: AMINO ACIDS 4.25%/D5W 1,000 ML IV SCH (16:15)
--- NOTE | 2019-04-04 18:29 | PN ---
Progress Note (short form) - Note Progress Note: Patient seen and examined Having nausea and emesis Diarrhea intermittently Anorexia Last Vital Signs Temp Pulse Resp BP Pulse Ox 98.6 F 81 20 111/58 L 95 04/04/19 15:25 04/04/19 15:25 04/04/19 15:25 04/04/19 15:25 04/04/19 10:00 HEENT: ODETTE, EOM Intact Cor: RSR, No murmurs, No gallops Lungs: Clear to P&A Abd: Soft, Normal bowel sounds, No organomegaly LLQ pain, mass and tenderness Ext:No significant edema Skin: No rashes, Integument intact CBC, BMP 04/04/19 07:53 04/04/19 07:53 Current Medications Generic Name Dose Route Start Last Admin Trade Name Freq PRN Reason Stop Dose Admin Acetaminophen 650 mg 03/26/19 00:27 04/02/19 20:39 Tylenol - PO 650 mg Q6H PRN Administration PAIN OR FEVER Enoxaparin Sodium 40 mg 03/26/19 10:00 04/04/19 10:00 Lovenox - SQ 40 mg DAILY L[facility]NN Administration Fentanyl 1 patch 04/03/19 22:00 04/03/19 23:00 Duragesic 25mcg Patch - TD 1 patch Q72H L[facility]NN Administration Fentanyl 1 patch 04/03/19 22:00 04/04/19 00:35 Duragesic 12mcg Patch - TD 1 patch Q72H L[facility]NN Administration Hydrocortisone 1 applic 04/03/19 22:00 04/04/19 09:58 Anusol 2.5% Hc Cream - TP 1 applic BID LYNN Administration Metronidazole 500 mg in 100 mls @ 100 mls/hr 03/29/19 10:00 04/04/19 17:04 Flagyl 500mg Premixed Ivpb - IVPB 100 mls/hr Q8H-IV [facility]NN Administration Ertapenem 1 gm/ Sodium 50 mls @ 100 mls/hr 03/31/19 10:45 04/04/19 09:57 Chloride IVPB 100 mls/hr DAILY L[facility]NN Administration Sodium Phosphate 20 mm/ Sodium 506.6667 mls @ 63.333 mls/hr 04/04/19 15:00 17:52 Chloride IVPB 04/04/19 22:59 63.333 mls/hr ONCE ONE Administration Amino Acids 1,000 mls @ 65 mls/hr 04/04/19 15:00 04/04/19 16:15 Clinimix - IV 04/05/19 14:59 65 mls/hr Q24H L[facility]NN Administration Insulin Aspart 1 vial 03/26/19 11:00 04/04/19 17:29 Novolog Vial Sliding Scale - SQ Not Given ACHS LYNN Protocol Miscellaneous 1 each 03/28/19 03:21 Duragesic Patch Waste MC PRN PRN PAIN Miscellaneous 1 each 04/01/19 19:34 04/03/19 23:00 Duragesic Patch Waste MC 1 each PRN PRN Administration PAIN Morphine Sulfate 15 mg 03/27/19 10:55 04/03/19 17:43 Msir - PO 15 mg Q6H PRN Administration PAIN LEVEL 4 - 6 Ondansetron HCl 4 mg 04/02/19 14:03 Zofran Injection IVPUSH Q8H PRN NAUSEA Polyethylene Glycol 17 gm 03/28/19 10:00 04/04/19 10:00 Miralax (For Daily Use) - PO 17 gm DAILY [facility]NN Administration Potassium Phos/Sodium Phos 1 packet 04/01/19 14:00 04/04/19 15:06 Phos-Nak Packet - PO 04/06/19 10:00 1 packet TID L[facility]NN Administration Rosuvastatin Calcium 5 mg 03/29/19 09:11 04/04/19 09:57 Crestor - PO 5 mg DAILY L[facility]NN Administration Impression Lung ca Proctocolitis Bone mets Abscesses Failure to thrive Pain management Continue with antibiotis Nutritional supplementation Pain - somewhat improved with increased dose of fentanyl. C
[2019-04-05] MEDS: NAPH,MB-DB/K PH,MBDB POWDER PACKET PO SCH ×3 (06:36→21:36)
[2019-04-05] MEDS: INSULIN SLIDING SCALE (NOVOLOG) 1 VIAL SQ SCH ×4 (06:50→21:34)
[2019-04-05 07:39] LABS: ALBUMIN 1.8 g/dl (3.4-5.0); BILIRUBIN,TOTAL 0.3 mg/dL (0.2-1); BLOOD UREA NITROGEN 8.3 mg/dL (7-18); CALCIUM 7.3 mg/dL (8.5-10.1); CREATININE 0.3 mg/dL (0.55-1.3); POTASSIUM 3.7 mmol/L (3.5-5.1); TOT PROT 5.1 g/dl (6.4-8.2)
[2019-04-05] MEDS ORDERED: PT OWN MED DRAWER 7, Y5N ONE (09:14)
[2019-04-05] MEDS: ROSUVASTATIN CA 5 MG TABLET (FP) PO SCH (09:27)
[2019-04-05] MEDS: ENOXAPARIN NA (PORCINE) 40 MG/0.4 ML DISP.SYRIN SQ SCH (09:27)
[2019-04-05] MEDS: POLYETHYLENE GLYCOL 3350 119 GM BTL PO SCH (09:30)
[2019-04-05] MEDS: HYDROCORTISONE 2.5% TOPICAL CREAM 30 GM TUBE TP SCH ×2 (10:00→21:33)
[2019-04-05] MEDS: ERTAPENEM SODIUM 1 GM in SODIUM CHLORIDE 50 ML IVPB SCH (10:02)
[2019-04-05] MEDS: AMINO ACIDS 4.25%/D5W 1,000 ML IV SCH (10:02)
--- NOTE | 2019-04-05 11:03 | PN ---
Progress Note (short form) - Note Progress Note: Seen in follow up. No new complaints this morning - reports ongoing diffuse pain pelvic region. Noted that dose fentanyl increased. Says the morphine helps. Meds reviewed. Current Medications Acetaminophen (Tylenol -) 650 mg PO Q6H PRN PRN Reason: PAIN OR FEVER Last Admin: 04/02/19 20:39 Dose: 650 mg Enoxaparin Sodium (Lovenox -) 40 mg SQ DAILY [facility] Last Admin: 04/05/19 09:27 Dose: 40 mg Fentanyl (Duragesic 25mcg Patch -) 1 patch TD Q72H [facility] Last Admin: 04/03/19 23:00 Dose: 1 patch Fentanyl (Duragesic 12mcg Patch -) 1 patch TD Q72H [facility] Last Admin: 04/04/19 00:35 Dose: 1 patch Hydrocortisone (Anusol 2.5% Hc Cream -) 1 applic TP BID [facility] Last Admin: 04/04/19 21:20 Dose: 1 applic Metronidazole (Flagyl 500mg Premixed Ivpb -) 500 mg in 100 mls @ 100 mls/hr IVPB Q8H-IV [facility] Last Admin: 04/05/19 09:27 Dose: 100 mls/hr Ertapenem 1 gm/ Sodium (Chloride) 50 mls @ 100 mls/hr IVPB DAILY [facility] Last Admin: 04/05/19 10:02 Dose: 100 mls/hr Amino Acids (Clinimix -) 1,000 mls @ 65 mls/hr IV Q24H [facility] Stop: 04/05/19 14:59 Last Admin: 04/05/19 10:02 Dose: 65 mls/hr Insulin Aspart (Novolog Vial Sliding Scale -) 1 vial SQ ACHS [facility]; Protocol Last Admin: 04/04/19 21:19 Dose: Not Given Miscellaneous (Duragesic Patch Waste) 1 each MC PRN PRN PRN Reason: PAIN Miscellaneous (Duragesic Patch Waste) 1 each MC PRN PRN PRN Reason: PAIN Last Admin: 04/03/19 23:00 Dose: 1 each Morphine Sulfate (Msir -) 15 mg PO Q6H PRN PRN Reason: PAIN LEVEL 4 - 6 Last Admin: 04/03/19 17:43 Dose: 15 mg Ondansetron HCl (Zofran Injection) 4 mg IVPUSH Q8H PRN PRN Reason: NAUSEA Polyethylene Glycol (Miralax (For Daily Use) -) 17 gm PO DAILY [facility] Last Admin: 04/05/19 09:30 Dose: 17 gm Potassium Phos/Sodium Phos (Phos-Nak Packet -) 1 packet PO TID [facility] Stop: 04/06/19 10:00 Last Admin: 04/05/19 06:36 Dose: 1 packet Rosuvastatin Calcium (Crestor -) 5 mg PO DAILY [facility] Last Admin: 04/05/19 09:27 Dose: 5 mg On exam: Last Vital Signs Temp Pulse Resp BP Pulse Ox 98.4 F 85 20 104/62 95 04/05/19 06:00 04/05/19 06:00 04/05/19 06:00 04/05/19 06:00 04/04/19 20:56 General: Lying in bed Extremities: no swelling Chest: breath sounds bilaterally, no wheeze or crackles Abdomen: Soft, no organomegaly, no masses. Tender lower abdomen. Neuro: Alert, oriented, non-focal. CVS: Normal sinus rhythm, S1, S2, no gallop or murmur. Labs reviewed: CBC, BMP 04/04/19 07:53 04/05/19 06:50 Assessment. Metastatic lung cancer, with extensive bone mets, who presents following a fall , with failure to thrive, and is noted to have preicolonic abscesses, presently being conservatively managed, with some improvement noted on most recent CT scan. Continue supportive care, analgesia, Abics as per ID, parenteral nutrition.
--- NOTE | 2019-04-05 12:54 | PN ---
Progress Note, Physician History of Present Illness: 79 year old female patient in no distress, alert, with periods of lethargy. Pt stats she has some abdominal discomfort. Denies shortness of breath. denies chest pain. - Current Medication List Current Medications: Active Medications Acetaminophen (Tylenol -) 650 mg PO Q6H PRN PRN Reason: PAIN OR FEVER Last Admin: 04/02/19 20:39 Dose: 650 mg Enoxaparin Sodium (Lovenox -) 40 mg SQ DAILY [facility] Last Admin: 04/05/19 09:27 Dose: 40 mg Fentanyl (Duragesic 25mcg Patch -) 1 patch TD Q72H [facility] Last Admin: 04/03/19 23:00 Dose: 1 patch Fentanyl (Duragesic 12mcg Patch -) 1 patch TD Q72H [facility] Last Admin: 04/04/19 00:35 Dose: 1 patch Hydrocortisone (Anusol 2.5% Hc Cream -) 1 applic TP BID [facility] Last Admin: 04/04/19 21:20 Dose: 1 applic Metronidazole (Flagyl 500mg Premixed Ivpb -) 500 mg in 100 mls @ 100 mls/hr IVPB Q8H-IV [facility] Last Admin: 04/05/19 09:27 Dose: 100 mls/hr Ertapenem 1 gm/ Sodium (Chloride) 50 mls @ 100 mls/hr IVPB DAILY [facility] Last Admin: 04/05/19 10:02 Dose: 100 mls/hr Amino Acids (Clinimix -) 1,000 mls @ 65 mls/hr IV Q24H [facility] Stop: 04/05/19 14:59 Last Admin: 04/05/19 10:02 Dose: 65 mls/hr Insulin Aspart (Novolog Vial Sliding Scale -) 1 vial SQ [facility]; Protocol Last Admin: 04/05/19 11:28 Dose: Not Given Miscellaneous (Duragesic Patch Waste) 1 each MC PRN PRN PRN Reason: PAIN Miscellaneous (Duragesic Patch Waste) 1 each MC PRN PRN PRN Reason: PAIN Last Admin: 04/03/19 23:00 Dose: 1 each Morphine Sulfate (Msir -) 15 mg PO Q6H PRN PRN Reason: PAIN LEVEL 4 - 6 Last Admin: 04/03/19 17:43 Dose: 15 mg Ondansetron HCl (Zofran Injection) 4 mg IVPUSH Q8H PRN PRN Reason: NAUSEA Polyethylene Glycol (Miralax (For Daily Use) -) 17 gm PO DAILY [facility] Last Admin: 04/05/19 09:30 Dose: 17 gm Potassium Phos/Sodium Phos (Phos-Nak Packet -) 1 packet PO TID [facility] Stop: 04/06/19 10:00 Last Admin: 04/05/19 06:36 Dose: 1 packet Rosuvastatin Calcium (Crestor -) 5 mg PO DAILY [facility] Last Admin: 04/05/19 09:27 Dose: 5 mg - Objective Vital Signs: Vital Signs Temperature 99.2 F 04/05/19 09:00 Pulse Rate 86 04/05/19 09:00 Respiratory Rate 20 04/05/19 09:00 Blood Pressure 97/46 L 04/05/19 09:00 O2 Sat by Pulse Oximetry (%) 95 04/04/19 20:56 Constitutional: Yes: Well Nourished, No Distress, Calm Cardiovascular: Yes: Regular Rate and Rhythm Respiratory: Yes: Regular Gastrointestinal: Yes: Hypoactive Bowel Sounds, Tenderness (right lower abdomen) Musculoskeletal: Yes: Muscle Weakness Extremities: Yes: WNL Edema: No Peripheral Pulses WNL: Yes Neurological: Yes: Alert, Lethargy Psychiatric: Yes: Alert Labs: CBC, BMP 04/04/19 07:53 04/05/19 06:50 INR, PTT INR 1.27 (0.83-1.09) H 03/31/19 08:10 Assessment/Plan (1) Fever Assessment/Plan: -resolved -tylenol prn for temp >100F -UC positive -BC neg -CXR neg -ID on board -Ertapenem and Flagyl (2) Abdominal pain Assessment/Plan: -GI on board -CT scan shows interval development of concentric wall thickening involving the rectosigmoid colon and possibly the ascending colon consistent with acute proctocolitis, asdociated development of 3 x 2cm and 1.7 x 1.5cm paracolic abscessesnoted along left border of sigmoid colon, development of diffuse urinary bladder wall thickening is seen suggestive of acute cystitis, mildly increased size of a focal mass noted within left lower anterior pelvic wall, 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 -IR consult was placed for possible IR drain but unable to be done 2/2 surrounding bowel -pain control -Flagyl -repeat CT scan reviewed, abscess improved Code(s): R10.9 - UNSPECIFIED ABDOMINAL PAIN (3) Diabetes Assessment/Plan: -Diabetic diet -ISS -BGM ACHS -Last A1c at 6.9 in 01/2019 Code(s): E11.9 - TYPE 2 DIABETES MELLITUS WITHOUT COMPLICATIONS (4) HLD (hyperlipidemia) Assessment/Plan: -Crestor Code(s): E78.5 - HYPERLIPIDEMIA, UNSPECIFIED (5) Hyponatremia Assessment/Plan: -improved -monitor electrolyte daily Code(s): E87.1 - HYPO-OSMOLALITY AND HYPONATREMIA (6) Metastatic lung cancer (metastasis from lung to other site) Assessment/Plan: -Oncology on board -palliative consult Code(s): C34.90 - MALIGNANT NEOPLASM OF UNSP PART OF UNSP BRONCHUS OR LUNG Qualifiers: Laterality: left Qualified Code(s): C34.92 - Malignant neoplasm of unspecified part of left bronchus or lung (7) UTI (urinary tract infection) Assessment/Plan: -ID on board -no leukocytosis -UA shows 2+ leuks -UC positive -contact precaution -Ertapenem Code(s): N39.0 - URINARY TRACT INFECTION, SITE NOT SPECIFIED (8) Frequent falls Assessment/Plan: -fall precaution -Head CT and Cervical Spine CT no acute pathology -PT Code(s): R29.6 - REPEATED FALLS (9) Anemia Assessment/Plan: -improved -monitor Hg daily -transfuse for Hg <7.0 Code(s): D64.9 - ANEMIA, UNSPECIFIED (10) Hypophosphatemia Assessment/Plan: -Renal on board -Phos-NAK packet x 1 TID -monitor phosphorous level Code(s): E83.39 - OTHER DISORDERS OF PHOSPHORUS METABOLISM (11) Poor appetite Assessment/Plan: -Clinimix -add Ensure -Dietary consult Code(s): R63.0 - ANOREXIA Assessment/Plan see problem list dvt ppx
[2019-04-06] MEDS: NAPH,MB-DB/K PH,MBDB POWDER PACKET PO SCH (06:08)
[2019-04-06] MEDS: INSULIN SLIDING SCALE (NOVOLOG) 1 VIAL SQ SCH ×4 (06:09→22:00)
[2019-04-06] MEDS: HYDROCORTISONE 2.5% TOPICAL CREAM 30 GM TUBE TP SCH ×2 (09:57→21:44)
[2019-04-06] MEDS: ROSUVASTATIN CA 5 MG TABLET (FP) PO SCH (09:58)
[2019-04-06] MEDS: ERTAPENEM SODIUM 1 GM in SODIUM CHLORIDE 50 ML IVPB SCH (10:01)
[2019-04-06] MEDS: ENOXAPARIN NA (PORCINE) 40 MG/0.4 ML DISP.SYRIN SQ SCH (10:01)
[2019-04-06] MEDS: POLYETHYLENE GLYCOL 3350 119 GM BTL PO SCH (10:01)
--- NOTE | 2019-04-06 11:35 | PN ---
Progress Note, Physician History of Present Illness: 79 year old female patient in no distress, alert, with periods of lethargy. Pt stats she has some abdominal discomfort. Denies shortness of breath. denies chest pain. Poor appetite. - Current Medication List Current Medications: Active Medications Acetaminophen (Tylenol -) 650 mg PO Q6H PRN PRN Reason: PAIN OR FEVER Last Admin: 04/02/19 20:39 Dose: 650 mg Enoxaparin Sodium (Lovenox -) 40 mg SQ DAILY [facility] Last Admin: 04/06/19 10:01 Dose: 40 mg Fentanyl (Duragesic 25mcg Patch -) 1 patch TD Q72H [facility] Last Admin: 04/03/19 23:00 Dose: 1 patch Fentanyl (Duragesic 12mcg Patch -) 1 patch TD Q72H [facility] Last Admin: 04/04/19 00:35 Dose: 1 patch Hydrocortisone (Anusol 2.5% Hc Cream -) 1 applic TP BID [facility] Last Admin: 04/06/19 09:57 Dose: 1 applic Metronidazole (Flagyl 500mg Premixed Ivpb -) 500 mg in 100 mls @ 100 mls/hr IVPB Q8H-IV [facility] Last Admin: 04/06/19 02:49 Dose: 100 mls/hr Ertapenem 1 gm/ Sodium (Chloride) 50 mls @ 100 mls/hr IVPB DAILY [facility] Last Admin: 04/06/19 10:01 Dose: 100 mls/hr Insulin Aspart (Novolog Vial Sliding Scale -) 1 vial SQ [facility]; Protocol Last Admin: 04/06/19 06:09 Dose: Not Given Miscellaneous (Duragesic Patch Waste) 1 each MC PRN PRN PRN Reason: PAIN Miscellaneous (Duragesic Patch Waste) 1 each MC PRN PRN PRN Reason: PAIN Last Admin: 04/03/19 23:00 Dose: 1 each Ondansetron HCl (Zofran Injection) 4 mg IVPUSH Q8H PRN PRN Reason: NAUSEA Polyethylene Glycol (Miralax (For Daily Use) -) 17 gm PO DAILY [facility] Last Admin: 04/06/19 10:01 Dose: 17 gm Rosuvastatin Calcium (Crestor -) 5 mg PO DAILY [facility] Last Admin: 04/06/19 09:58 Dose: 5 mg - Objective Vital Signs: Vital Signs Temperature 98.2 F 09/15/19 10:12 Pulse Rate 95 H 04/06/19 10:12 Respiratory Rate 18 04/06/19 10:12 Blood Pressure 100/50 L 04/06/19 10:12 O2 Sat by Pulse Oximetry (%) 95 04/05/19 21:00 Constitutional: Yes: Well Nourished, No Distress, Calm Cardiovascular: Yes: Regular Rate and Rhythm Respiratory: Yes: Regular Gastrointestinal: Yes: Normal Bowel Sounds, Soft Genitourinary: Yes: WNL Musculoskeletal: Yes: Muscle Weakness Extremities: Yes: WNL Edema: No Peripheral Pulses WNL: Yes Neurological: Yes: Alert, Lethargy Psychiatric: Yes: Alert Labs: CBC, BMP 04/04/19 07:53 04/05/19 06:50 INR, PTT INR 1.27 (0.83-1.09) H 03/31/19 08:10 Assessment/Plan (1) Fever Assessment/Plan: -resolved -tylenol prn for temp >100F -UC positive -BC neg -CXR neg -ID on board -Ertapenem and Flagyl (2) Abdominal pain Assessment/Plan: -GI on board -CT scan shows interval development of concentric wall thickening involving the rectosigmoid colon and possibly the ascending colon consistent with acute proctocolitis, asdociated development of 3 x 2cm and 1.7 x 1.5cm paracolic abscessesnoted along left border of sigmoid colon, development of diffuse urinary bladder wall thickening is seen suggestive of acute cystitis, mildly increased size of a focal mass noted within left lower anterior pelvic wall, 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 -IR consult was placed for possible IR drain but unable to be done 2/2 surrounding bowel -pain control -Flagyl -repeat CT scan reviewed, abscess improved Code(s): R10.9 - UNSPECIFIED ABDOMINAL PAIN (3) Diabetes Assessment/Plan: -Diabetic diet -ISS -BGM ACHS -Last A1c at 6.9 in 01/2019 Code(s): E11.9 - TYPE 2 DIABETES MELLITUS WITHOUT COMPLICATIONS (4) HLD (hyperlipidemia) Assessment/Plan: -Crestor Code(s): E78.5 - HYPERLIPIDEMIA, UNSPECIFIED (5) Hyponatremia Assessment/Plan: -improved -monitor electrolyte daily Code(s): E87.1 - HYPO-OSMOLALITY AND HYPONATREMIA (6) Metastatic lung cancer (metastasis from lung to other site) Assessment/Plan: -Oncology on board -palliative consult Code(s): C34.90 - MALIGNANT NEOPLASM OF UNSP PART OF UNSP BRONCHUS OR LUNG Qualifiers: Laterality: left Qualified Code(s): C34.92 - Malignant neoplasm of unspecified part of left bronchus or lung (7) UTI (urinary tract infection) Assessment/Plan: -ID on board -no leukocytosis -UA shows 2+ leuks -UC positive -contact precaution -Ertapenem Code(s): N39.0 - URINARY TRACT INFECTION, SITE NOT SPECIFIED (8) Frequent falls Assessment/Plan: -fall precaution -Head CT and Cervical Spine CT no acute pathology -PT Code(s): R29.6 - REPEATED FALLS (9) Anemia Assessment/Plan: -improved -monitor Hg daily -transfuse for Hg <7.0 Code(s): D64.9 - ANEMIA, UNSPECIFIED (10) Hypophosphatemia Assessment/Plan: -Renal on board -Phos-NAK packet x 1 TID -monitor phosphorous level Code(s): E83.39 - OTHER DISORDERS OF PHOSPHORUS METABOLISM (11) Poor appetite Assessment/Plan: -Clinimix -add Ensure -Dietary consult Code(s): R63.0 - ANOREXIA Assessment/Plan see problem list dvt ppx
--- NOTE | 2019-04-06 13:44 | PN ---
Progress Note (short form) - Note Progress Note: Seen in follow up. No new complaints this morning - reports ongoing diffuse pain pelvic region. Meds reviewed. Current Medications Generic Name Dose Route Start Last Admin Trade Name Zandra PRN Reason Stop Dose Admin Acetaminophen 650 mg 03/26/19 00:27 04/02/19 20:39 Tylenol - PO 650 mg Q6H PRN Administration PAIN OR FEVER Enoxaparin Sodium 40 mg 03/26/19 10:00 04/06/19 10:01 Lovenox - SQ 40 mg DAILY [facility] Administration Fentanyl 1 patch 04/03/19 22:00 04/03/19 23:00 Duragesic 25mcg Patch - TD 1 patch Q72H [facility] Administration Fentanyl 1 patch 04/03/19 22:00 04/04/19 00:35 Duragesic 12mcg Patch - TD 1 patch Q72H [facility] Administration Hydrocortisone 1 applic 04/03/19 22:00 04/06/19 09:57 Anusol 2.5% Hc Cream - TP 1 applic BID [facility] Administration Metronidazole 500 mg in 100 mls @ 100 mls/hr 03/29/19 10:00 04/06/19 12:12 Flagyl 500mg Premixed Ivpb - IVPB 100 mls/hr Q8H-IV [facility] Administration Ertapenem 1 gm/ Sodium 50 mls @ 100 mls/hr 03/31/19 10:45 04/06/19 10:01 Chloride IVPB 100 mls/hr DAILY [facility] Administration Insulin Aspart 1 vial 03/26/19 11:00 04/06/19 12:11 Novolog Vial Sliding Scale - SQ Not Given ACHS [facility] Protocol Miscellaneous 1 each 03/28/19 03:21 Duragesic Patch Waste MC PRN PRN PAIN Miscellaneous 1 each 04/01/19 19:34 04/03/19 23:00 Duragesic Patch Waste MC 1 each PRN PRN Administration PAIN Ondansetron HCl 4 mg 04/02/19 14:03 Zofran Injection IVPUSH Q8H PRN NAUSEA Polyethylene Glycol 17 gm 03/28/19 10:00 04/06/19 10:01 Miralax (For Daily Use) - PO 17 gm DAILY [facility] Administration Rosuvastatin Calcium 5 mg 03/29/19 09:11 04/06/19 09:58 Crestor - PO 5 mg DAILY [facility] Administration On exam: Last Vital Signs Temp Pulse Resp BP Pulse Ox 98.2 F 95 H 18 100/50 L 95 04/06/19 10:12 04/06/19 10:12 04/06/19 10:04/06/19 10:04/06/19 09:00 General: Lying in bed Extremities: no swelling Chest: breath sounds bilaterally, no wheeze or crackles Abdomen: Soft, no organomegaly, no masses. Tender lower abdomen. Neuro: Alert, oriented, non-focal. CVS: Normal sinus rhythm, S1, S2, no gallop or murmur. Labs reviewed: Last Vital Signs Temp Pulse Resp BP Pulse Ox 98.2 F 95 H 18 100/50 L 95 04/06/19 10:12 04/06/19 10:12 04/06/19 10:04/06/19 10:12 04/06/19 09:00 Assessment. Metastatic lung cancer, with extensive bone mets, who presents following a fall , with failure to thrive, and is noted to have preicolonic abscesses, presently being conservatively managed, with some improvement noted on most recent CT scan. Continue supportive care, analgesia, Abics as per ID, parenteral nutrition.
[2019-04-06] MEDS: fentaNYL 25mcg/hr PATCH.TD72 TD SCH (21:45)
[2019-04-06] MEDS: fentaNYL 12mcg/hr PATCH.TD72 TD SCH (23:17)
[2019-04-06] MEDS: FENTANYL PATCH WASTE MC PRN (23:19)
--- NOTE | 2019-04-07 10:02 | PN ---
Progress Note (short form) - Note Progress Note: no BM diet advanced less abdominal pain has sacral pain Vital Signs Period Temp Pulse Resp BP Sys/Paulson Pulse Ox Last 24 Hr 98.2 F-98.8 F 87-96 18-20 100-113/50-61 95-96 cor-rrr lungs clear abd soft,mild pelvic discomfort to palpation ext no edema CBC, BMP 04/04/19 07:53 04/05/19 06:50 Microbiology 03/25/19 18:25 Blood - Peripheral Venous Blood Culture - Final NO GROWTH AFTER 5 DAYS INCUBATION 03/25/19 17:42 Blood - Peripheral Venous Blood Culture - Final NO GROWTH AFTER 5 DAYS INCUBATION 03/25/19 17:56 Urine - Urine Clean Catch Urine Culture - Final Escherichia Coli Enterobacter Cloacae imp/reccd 79 yo female with metastatic lung cancer-on abraxane no diarrhea repeat ct with some improvement of the collections, protocolitis and cystitis unchanged- ?secondary to radiation continue ertapenem/flagyl day #9 12 f/u with GI-have call in to d/w dr garcia repeat crp in am suspect sacral miller due to matthew metastasis noted on ct scan continue contact isolation overall prognosis is poor Problem List - Problems (1) Fever Code(s): R50.9 - FEVER, UNSPECIFIED (2) UTI (urinary tract infection) Code(s): N39.0 - URINARY TRACT INFECTION, SITE NOT SPECIFIED Qualifiers: Urinary tract infection type: site unspecified Hematuria presence: with hematuria Qualified Code(s): N39.0 - Urinary tract infection, site not specified; R31.9 - Hematuria, unspecified (3) Leukopenia Code(s): D72.819 - DECREASED WHITE BLOOD CELL COUNT, UNSPECIFIED (4) Metastatic adenocarcinoma Code(s): C79.9 - SECONDARY MALIGNANT NEOPLASM OF UNSPECIFIED SITE
[2019-04-07] MEDS: ROSUVASTATIN CA 5 MG TABLET (FP) PO SCH (10:21)
[2019-04-07] MEDS: ENOXAPARIN NA (PORCINE) 40 MG/0.4 ML DISP.SYRIN SQ SCH (10:21)
[2019-04-07] MEDS: ERTAPENEM SODIUM 1 GM in SODIUM CHLORIDE 50 ML IVPB SCH (10:22)
[2019-04-07] MEDS: HYDROCORTISONE 2.5% TOPICAL CREAM 30 GM TUBE TP SCH ×2 (10:24→21:57)
[2019-04-07] MEDS: POLYETHYLENE GLYCOL 3350 119 GM BTL PO SCH (10:29)
--- NOTE | 2019-04-07 10:57 | PN ---
Progress Note, Physician Chief Complaint: patient seen and examined - Current Medication List Current Medications: Active Medications Acetaminophen (Tylenol -) 650 mg PO Q6H PRN PRN Reason: PAIN OR FEVER Last Admin: 04/02/19 20:39 Dose: 650 mg Enoxaparin Sodium (Lovenox -) 40 mg SQ DAILY [facility] Last Admin: 04/07/19 10:21 Dose: 40 mg Fentanyl (Duragesic 25mcg Patch -) 1 patch TD Q72H [facility] Last Admin: 04/06/19 21:45 Dose: 1 patch Fentanyl (Duragesic 12mcg Patch -) 1 patch TD Q72H [facility] Last Admin: 04/06/19 23:17 Dose: 1 patch Hydrocortisone (Anusol 2.5% Hc Cream -) 1 applic TP BID [facility] Last Admin: 04/07/19 10:24 Dose: 1 applic Metronidazole (Flagyl 500mg Premixed Ivpb -) 500 mg in 100 mls @ 100 mls/hr IVPB Q8H-IV [facility] Last Admin: 04/07/19 10:21 Dose: 100 mls/hr Insulin Aspart (Novolog Vial Sliding Scale -) 1 vial SQ [facility]; Protocol Last Admin: 04/06/19 22:00 Dose: Not Given Miscellaneous (Duragesic Patch Waste) 1 each MC PRN PRN PRN Reason: PAIN Last Admin: 04/06/19 21:48 Dose: 1 each Miscellaneous (Duragesic Patch Waste) 1 each MC PRN PRN PRN Reason: PAIN Last Admin: 04/06/19 23:19 Dose: 1 each Ondansetron HCl (Zofran Injection) 4 mg IVPUSH Q8H PRN PRN Reason: NAUSEA Polyethylene Glycol (Miralax (For Daily Use) -) 17 gm PO DAILY [facility] Last Admin: 04/07/19 10:29 Dose: Not Given Rosuvastatin Calcium (Crestor -) 5 mg PO DAILY [facility] Last Admin: 04/07/19 10:21 Dose: 5 mg - Objective Vital Signs: Vital Signs Temperature 98.8 F 04/07/19 06:10 Pulse Rate 87 04/07/19 06:10 Respiratory Rate 20 04/07/19 06:10 Blood Pressure 102/50 L 04/07/19 06:10 O2 Sat by Pulse Oximetry (%) 95 04/07/19 07:51 Constitutional: Yes: Calm Cardiovascular: Yes: Regular Rate and Rhythm, S1, S2 Respiratory: Yes: CTA Bilaterally Gastrointestinal: Yes: Normal Bowel Sounds, Soft Edema: No Neurological: Yes: Alert, Oriented Labs: CBC, BMP 04/04/19 07:53 04/05/19 06:50 INR, PTT INR 1.27 (0.83-1.09) H 03/31/19 08:10 Problem List - Problems (1) Abdominal pain Assessment/Plan: ct scan noted slight decrase in pericolonic abscess iv abx per ID on clinimix Code(s): R10.9 - UNSPECIFIED ABDOMINAL PAIN (2) Hypophosphatemia Assessment/Plan: rpeleted recheck in AM Code(s): E83.39 - OTHER DISORDERS OF PHOSPHORUS METABOLISM (3) HLD (hyperlipidemia) Assessment/Plan: [facility] Code(s): E78.5 - HYPERLIPIDEMIA, UNSPECIFIED
[2019-04-07] MEDS: INSULIN SLIDING SCALE (NOVOLOG) 1 VIAL SQ SCH ×3 (11:08→21:57)
[2019-04-07 13:37] LABS: ALBUMIN 1.8 g/dl (3.4-5.0); BILIRUBIN,TOTAL 0.3 mg/dL (0.2-1); BLOOD UREA NITROGEN 4.6 mg/dL (7-18); CREATININE 0.3 mg/dL (0.55-1.3); PHOSPHOROUS 2.5 mg/dL (2.5-4.9); POTASSIUM 4.2 mmol/L (3.5-5.1); TOT PROT 5.2 g/dl (6.4-8.2)
--- NOTE | 2019-04-07 14:46 | PN ---
Progress Note, Physician History of Present Illness: Pt seen and examined at bedside. She is tolerating diet. She denies shortness of breath. - Current Medication List Current Medications: Active Medications Acetaminophen (Tylenol -) 650 mg PO Q6H PRN PRN Reason: PAIN OR FEVER Last Admin: 04/02/19 20:39 Dose: 650 mg Enoxaparin Sodium (Lovenox -) 40 mg SQ DAILY [facility] Last Admin: 04/07/19 10:21 Dose: 40 mg Fentanyl (Duragesic 25mcg Patch -) 1 patch TD Q72H [facility] Last Admin: 04/06/19 21:45 Dose: 1 patch Fentanyl (Duragesic 12mcg Patch -) 1 patch TD Q72H [facility] Last Admin: 04/06/19 23:17 Dose: 1 patch Hydrocortisone (Anusol 2.5% Hc Cream -) 1 applic TP BID [facility] Last Admin: 04/07/19 10:24 Dose: 1 applic Metronidazole (Flagyl 500mg Premixed Ivpb -) 500 mg in 100 mls @ 100 mls/hr IVPB Q8H-IV [facility] Last Admin: 04/07/19 10:21 Dose: 100 mls/hr Ertapenem 1 gm/ Sodium (Chloride) 50 mls @ 100 mls/hr IVPB DAILY [facility] Insulin Aspart (Novolog Vial Sliding Scale -) 1 vial SQ ACHS [facility]; Protocol Last Admin: 04/07/19 11:08 Dose: Not Given Miscellaneous (Duragesic Patch Waste) 1 each MC PRN PRN PRN Reason: PAIN Last Admin: 04/06/19 21:48 Dose: 1 each Miscellaneous (Duragesic Patch Waste) 1 each MC PRN PRN PRN Reason: PAIN Last Admin: 04/06/19 23:19 Dose: 1 each Ondansetron HCl (Zofran Injection) 4 mg IVPUSH Q8H PRN PRN Reason: NAUSEA Polyethylene Glycol (Miralax (For Daily Use) -) 17 gm PO DAILY [facility] Last Admin: 04/07/19 10:29 Dose: Not Given Rosuvastatin Calcium (Crestor -) 5 mg PO DAILY [facility] Last Admin: 04/07/19 10:21 Dose: 5 mg - Objective Vital Signs: Vital Signs Temperature 98.4 F 04/07/19 14:16 Pulse Rate 90 09/16/19 14:16 Respiratory Rate 18 04/07/19 14:16 Blood Pressure 108/55 L 04/07/19 14:16 O2 Sat by Pulse Oximetry (%) 95 04/07/19 07:51 Constitutional: Yes: Calm Eyes: Yes: Conjunctiva Clear HENT: Yes: Atraumatic Neck: Yes: Supple Cardiovascular: Yes: S1, S2 Respiratory: Yes: CTA Bilaterally Gastrointestinal: Yes: Soft Genitourinary: Yes: WNL Musculoskeletal: Yes: WNL Edema: No Neurological: Yes: Oriented Psychiatric: Yes: Oriented Labs: CBC, BMP 04/04/19 07:53 04/07/19 12:06 INR, PTT INR 1.27 (0.83-1.09) H 03/31/19 08:10 Problem List - Problems (1) Hypophosphatemia Code(s): E83.39 - OTHER DISORDERS OF PHOSPHORUS METABOLISM Assessment/Plan Current Medications Generic Name Dose Route Start Last Admin Trade Name Freq PRN Reason Stop Dose Admin Acetaminophen 650 mg 03/26/19 00:27 04/02/19 20:39 Tylenol - PO 650 mg Q6H PRN Administration PAIN OR FEVER Enoxaparin Sodium 40 mg 03/26/19 10:00 04/07/19 10:21 Lovenox - SQ 40 mg DAILY [facility] Administration Fentanyl 1 patch 04/03/19 22:00 04/06/19 21:45 Duragesic 25mcg Patch - TD 1 patch Q72H [facility] Administration Fentanyl 1 patch 04/03/19 22:00 04/06/19 23:17 Duragesic 12mcg Patch - TD 1 patch Q72H [facility] Administration Hydrocortisone 1 applic 04/03/19 22:00 04/07/19 10:24 Anusol 2.5% Hc Cream - TP 1 applic BID [facility] Administration Metronidazole 500 mg in 100 mls @ 100 mls/hr 03/29/19 10:00 04/07/19 10:21 Flagyl 500mg Premixed Ivpb - IVPB 100 mls/hr Q8H-IV [facility] Administration Ertapenem 1 gm/ Sodium 50 mls @ 100 mls/hr 04/08/19 10:00 Chloride IVPB DAILY [facility] Insulin Aspart 1 vial 03/26/19 11:00 04/07/19 11:08 Novolog Vial Sliding Scale - SQ Not Given ACHS [facility] Protocol Miscellaneous 1 each 03/28/19 03:21 04/06/19 21:48 Duragesic Patch Waste MC 1 each PRN PRN Administration PAIN Miscellaneous 1 each 04/01/19 19:34 04/06/19 23:19 Duragesic Patch Waste MC 1 each PRN PRN Administration PAIN Ondansetron HCl 4 mg 04/02/19 14:03 Zofran Injection IVPUSH Q8H PRN NAUSEA Polyethylene Glycol 17 gm 03/28/19 10:00 04/07/19 10:29 Miralax (For Daily Use) - PO Not Given DAILY [facility] Rosuvastatin Calcium 5 mg 03/29/19 09:11 04/07/19 10:21 Crestor - PO 5 mg DAILY [facility] Administration Impression 1. hyponatremia 2. lung cancer 3. DM 4. hypokalemia 5. UTI 6. malnutrition Plan - cont supplements - encourage PO intake - phos level improved - pain control
--- NOTE | 2019-04-07 17:51 | PN ---
Progress Note (short form) - Note Progress Note: Patient seen and examined Feels better Last Vital Signs Temp Pulse Resp BP Pulse Ox 98.4 F 90 18 108/55 L 95 04/07/19 14:16 04/07/19 14:16 04/07/19 14:16 04/07/19 14:16 04/07/19 07:51 Cor: RSR, No murmurs, No gallops Lungs: Clear to P&A Abd: Soft, Normal bowel sounds, No organomegaly Ext:No significant edema Abnormal Lab Results 04/07/19 12:06 Sodium 134 L BUN 4.6 L Creatinine 0.3 L Random Glucose 112 H Calcium 8.0 L ALT 8 L C-Reactive Protein 2.4 H Total Protein 5.2 L Albumin 1.8 L Home Medication List Medication Instructions Recorded Confirmed Type Rosuvastatin [Crestor -] 10 mg PO DAILY 07/25/18 03/11/19 History metFORMIN HCL [Metformin ER 500 mg PO BIDAC 07/25/18 03/11/19 History Osmotic] Ondansetron HCl [Zofran] 8 mg PO QID PRN 01/30/19 03/11/19 History Prochlorperazine Maleate 10 mg PO TID PRN 01/30/19 03/11/19 History [Compazine] FENTANYL 25mcg PATCH [DURAGESIC 25 mcg PO 03/11/19 History 25mcg PATCH -] Morphine Sulfate 15 mg PO QID 03/11/19 03/11/19 History Active Medications Generic Name Dose Route Start Last Admin Trade Name Freq PRN Reason Stop Dose Admin Acetaminophen 650 mg 03/26/19 00:27 04/02/19 20:39 Tylenol - PO 650 mg Q6H PRN Administration PAIN OR FEVER Enoxaparin Sodium 40 mg 03/26/19 10:00 04/07/19 10:21 Lovenox - SQ 40 mg DAILY [facility] Administration Fentanyl 1 patch 04/03/19 22:00 04/06/19 21:45 Duragesic 25mcg Patch - TD 1 patch Q72H [facility] Administration Fentanyl 1 patch 04/03/19 22:00 04/06/19 23:17 Duragesic 12mcg Patch - TD 1 patch Q72H [facility] Administration Hydrocortisone 1 applic 04/03/19 22:00 04/07/19 10:24 Anusol 2.5% Hc Cream - TP 1 applic BID [facility] Administration Metronidazole 500 mg in 100 mls @ 100 mls/hr 03/29/19 10:00 04/07/19 17:28 Flagyl 500mg Premixed Ivpb - IVPB 100 mls/hr Q8H-IV [facility] Administration Ertapenem 1 gm/ Sodium 50 mls @ 100 mls/hr 04/08/19 10:00 Chloride IVPB DAILY [facility] Insulin Aspart 1 vial 03/26/19 11:00 04/07/19 16:53 Novolog Vial Sliding Scale - SQ Not Given ACHS [facility] Protocol Miscellaneous 1 each 03/28/19 03:21 04/06/19 21:48 Duragesic Patch Waste MC 1 each PRN PRN Administration PAIN Miscellaneous 1 each 04/01/19 19:34 04/06/19 23:19 Duragesic Patch Waste MC 1 each PRN PRN Administration PAIN Ondansetron HCl 4 mg 04/02/19 14:03 Zofran Injection IVPUSH Q8H PRN NAUSEA Polyethylene Glycol 17 gm 03/28/19 10:00 04/07/19 10:29 Miralax (For Daily Use) - PO Not Given DAILY [facility] Rosuvastatin Calcium 5 mg 03/29/19 09:11 04/07/19 10:21 Crestor - PO 5 mg DAILY [facility] Administration A/P 79 y/o patient with metastatitc lung cancer --invasive adenoca, moderately differentiated, mutation in KRAS and tp53, PDL1 -50% stage IV--s/p immunotherapy with pembrolizumab and then 2nd line pembro + carbo/ alimta. Most recently abraxane. s/RT to supraclavicular masses, sacrum. On ertapenem for pericolonic abscesses. Discussed with ID team --plan to continue ertapenem full course via PICC and repeat imaging Discussed in great detail with patient, daughter and son-in-law Discussed overall guarded prognosis To reevaluate after antibiotics and decide on further chemotherapy after will check CT chest
[2019-04-08] MEDS: INSULIN SLIDING SCALE (NOVOLOG) 1 VIAL SQ SCH ×4 (06:06→22:04)
--- NOTE | 2019-04-08 08:24 | PN.GI ---
GI Progress Note Subjective: Patient states abdominal pain is slightly improved, denies nausea, vomiting, constipation. States having diarrhea and dark colored stools. - Objective Vital Signs: Vital Signs Temperature 98.8 F 04/08/19 07:06 Pulse Rate 82 04/08/19 07:06 Respiratory Rate 20 04/08/19 07:06 Blood Pressure 105/62 04/08/19 07:06 O2 Sat by Pulse Oximetry (%) 95 04/07/19 21:00 Constitutional: No Distress, Calm Eyes: Yes: Conjunctiva Clear HENT: Yes: Atraumatic Cardiovascular: Yes: Regular Rate and Rhythm Respiratory: Yes: Regular, CTA Bilaterally Gastrointestinal Inspection: Yes: WNL. No: Ascites, Distention, Hernia, Scars, Other ...Auscultate: Yes: Normoactive Bowel Sounds. No: Hyperactive Bowel Sounds, Hypoactive Bowel Sounds, No Bowel Sounds, Other ...Palpate: Yes: Soft, Tenderness (llq). No: Firm/Rigid, Guarding, Hepatomegaly , Mass, Pulsatile Mass, Splenomegaly, Tenderness, Epigastium, Tenderness, Rebound, Other ...Percussion: Yes: Tympanitic. No: Dullness, Fluid Wave, Other Neurological: Yes: Alert Psychiatric: Yes: Alert Labs: CBC, BMP 04/04/19 07:53 04/07/19 12:06 INR, PTT INR 1.27 (0.83-1.09) H 03/31/19 08:10 Active Medications Generic Name Dose Route Start Last Admin Trade Name Freq PRN Reason Stop Dose Admin Acetaminophen 650 mg 03/26/19 00:27 04/02/19 20:39 Tylenol - PO 650 mg Q6H PRN Administration PAIN OR FEVER Enoxaparin Sodium 40 mg 03/26/19 10:00 04/07/19 10:21 Lovenox - SQ 40 mg DAILY [facility] Administration Fentanyl 1 patch 04/03/19 22:00 04/06/19 21:45 Duragesic 25mcg Patch - TD 1 patch Q72H [facility] Administration Fentanyl 1 patch 04/03/19 22:00 04/06/19 23:17 Duragesic 12mcg Patch - TD 1 patch Q72H [facility] Administration Hydrocortisone 1 applic 04/03/19 22:00 04/07/19 21:57 Anusol 2.5% Hc Cream - TP 1 applic BID [facility] Administration Metronidazole 500 mg in 100 mls @ 100 mls/hr 03/29/19 10:00 04/08/19 02:23 Flagyl 500mg Premixed Ivpb - IVPB 100 mls/hr Q8H-IV [facility] Administration Ertapenem 1 gm/ Sodium 50 mls @ 100 mls/hr 04/08/19 10:00 Chloride IVPB DAILY [facility] Insulin Aspart 1 vial 03/26/19 11:00 04/08/19 06:06 Novolog Vial Sliding Scale - SQ Not Given ACHS [facility] Protocol Miscellaneous 1 each 03/28/19 03:21 04/06/19 21:48 Duragesic Patch Waste MC 1 each PRN PRN Administration PAIN Miscellaneous 1 each 04/01/19 19:34 04/06/19 23:19 Duragesic Patch Waste MC 1 each PRN PRN Administration PAIN Ondansetron HCl 4 mg 04/02/19 14:03 Zofran Injection IVPUSH Q8H PRN NAUSEA Polyethylene Glycol 17 gm 03/28/19 10:00 04/07/19 10:29 Miralax (For Daily Use) - PO Not Given DAILY [facility] Rosuvastatin Calcium 5 mg 03/29/19 09:11 04/07/19 10:21 Crestor - PO 5 mg DAILY [facility] Administration Problem List - Problems (1) Abdominal pain Assessment/Plan: -CT scan reviewed and shows pericolonic abscess 3 x 2cm--repeat CT scan shows slight decrease in size -continue IV ABT -ID recommendation appreciated Code(s): R10.9 - UNSPECIFIED ABDOMINAL PAIN (2) Diarrhea Assessment/Plan: -Stool culture, Cdiff, Calpoprectin ordered Code(s): R19.7 - DIARRHEA, UNSPECIFIED (3) Rectal pain Assessment/Plan: >Annusol cream BID Code(s): K62.89 - OTHER SPECIFIED DISEASES OF ANUS AND RECTUM
[2019-04-08] MEDS: ENOXAPARIN NA (PORCINE) 40 MG/0.4 ML DISP.SYRIN SQ SCH (09:23)
[2019-04-08] MEDS: ROSUVASTATIN CA 5 MG TABLET (FP) PO SCH (09:23)
[2019-04-08] MEDS: POLYETHYLENE GLYCOL 3350 119 GM BTL PO SCH (09:23)
[2019-04-08] MEDS: HYDROCORTISONE 2.5% TOPICAL CREAM 30 GM TUBE TP SCH ×2 (09:28→22:04)
--- NOTE | 2019-04-08 10:25 | PN ---
Progress Note, Physician Chief Complaint: Pericolonic abscess UTI Proctocolitis Metastatic lung cancer History of Present Illness: 79 year old female patient in no distress, alert, with periods of lethargy. Pt stats she has some abdominal discomfort. Denies shortness of breath. denies chest pain. Poor appetite. - Current Medication List Current Medications: Active Medications Acetaminophen (Tylenol -) 650 mg PO Q6H PRN PRN Reason: PAIN OR FEVER Last Admin: 04/02/19 20:39 Dose: 650 mg Enoxaparin Sodium (Lovenox -) 40 mg SQ DAILY [facility] Last Admin: 04/08/19 09:23 Dose: 40 mg Fentanyl (Duragesic 25mcg Patch -) 1 patch TD Q72H [facility] Last Admin: 04/06/19 21:45 Dose: 1 patch Fentanyl (Duragesic 12mcg Patch -) 1 patch TD Q72H [facility] Last Admin: 04/06/19 23:17 Dose: 1 patch Hydrocortisone (Anusol 2.5% Hc Cream -) 1 applic TP BID [facility] Last Admin: 04/08/19 09:28 Dose: 1 applic Metronidazole (Flagyl 500mg Premixed Ivpb -) 500 mg in 100 mls @ 100 mls/hr IVPB Q8H-IV [facility] Last Admin: 04/08/19 09:23 Dose: 100 mls/hr Ertapenem 1 gm/ Sodium (Chloride) 50 mls @ 100 mls/hr IVPB DAILY [facility] Insulin Aspart (Novolog Vial Sliding Scale -) 1 vial SQ [facility]; Protocol Last Admin: 04/08/19 06:06 Dose: Not Given Miscellaneous (Duragesic Patch Waste) 1 each MC PRN PRN PRN Reason: PAIN Last Admin: 04/06/19 21:48 Dose: 1 each Miscellaneous (Duragesic Patch Waste) 1 each MC PRN PRN PRN Reason: PAIN Last Admin: 04/06/19 23:19 Dose: 1 each Ondansetron HCl (Zofran Injection) 4 mg IVPUSH Q8H PRN PRN Reason: NAUSEA Polyethylene Glycol (Miralax (For Daily Use) -) 17 gm PO DAILY [facility] Last Admin: 04/08/19 09:23 Dose: 17 gm Rosuvastatin Calcium (Crestor -) 5 mg PO DAILY [facility] Last Admin: 04/08/19 09:23 Dose: 5 mg - Objective Vital Signs: Vital Signs Temperature 98.8 F 04/08/19 07:06 Pulse Rate 82 04/08/19 07:06 Respiratory Rate 20 04/08/19 07:06 Blood Pressure 105/62 04/08/19 07:06 O2 Sat by Pulse Oximetry (%) 95 04/07/19 21:00 Constitutional: Yes: No Distress, Calm, Thin, Other (weak appearing) Cardiovascular: Yes: Regular Rate and Rhythm Respiratory: Yes: Regular Gastrointestinal: Yes: Soft, Hypoactive Bowel Sounds, Tenderness (diffuse) Genitourinary: Yes: WNL Musculoskeletal: Yes: Muscle Weakness Extremities: Yes: WNL Edema: No Peripheral Pulses WNL: Yes Neurological: Yes: Alert, Oriented Psychiatric: Yes: Alert, Oriented Labs: CBC, BMP 04/04/19 07:53 04/07/19 12:06 INR, PTT INR 1.27 (0.83-1.09) H 03/31/19 08:10 Problem List - Problems (1) Proctocolitis with abscess Assessment/Plan: -IV Flagyl -GI on board -Abdominal pain improved -Pain control -Appetite improved -Diet advanced Code(s): K52.9 - NONINFECTIVE GASTROENTERITIS AND COLITIS, UNSPECIFIED; K63.0 - ABSCESS OF INTESTINE (2) Diarrhea Assessment/Plan: -Awaiting stool microbiology Code(s): R19.7 - DIARRHEA, UNSPECIFIED Assessment/Plan (1) Fever Assessment/Plan: -resolved -tylenol prn for temp >100F -UC positive -BC neg -CXR neg -ID on board -Ertapenem and Flagyl (2) Abdominal pain Assessment/Plan: -GI on board -CT scan shows interval development of concentric wall thickening involving the rectosigmoid colon and possibly the ascending colon consistent with acute proctocolitis, asdociated development of 3 x 2cm and 1.7 x 1.5cm paracolic abscessesnoted along left border of sigmoid colon, development of diffuse urinary bladder wall thickening is seen suggestive of acute cystitis, mildly increased size of a focal mass noted within left lower anterior pelvic wall, 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 -IR consult was placed for possible IR drain but unable to be done 2/2 surrounding bowel -pain control -Flagyl -repeat CT scan reviewed, abscess improved Code(s): R10.9 - UNSPECIFIED ABDOMINAL PAIN (3) Diabetes Assessment/Plan: -Diabetic diet -ISS -BGM ACHS -Last A1c at 6.9 in 01/2019 Code(s): E11.9 - TYPE 2 DIABETES MELLITUS WITHOUT COMPLICATIONS (4) HLD (hyperlipidemia) Assessment/Plan: -Crestor Code(s): E78.5 - HYPERLIPIDEMIA, UNSPECIFIED (5) Hyponatremia Assessment/Plan: -improved -monitor electrolyte daily Code(s): E87.1 - HYPO-OSMOLALITY AND HYPONATREMIA (6) Metastatic lung cancer (metastasis from lung to other site) Assessment/Plan: -Oncology on board -palliative consult Code(s): C34.90 - MALIGNANT NEOPLASM OF UNSP PART OF UNSP BRONCHUS OR LUNG Qualifiers: Laterality: left Qualified Code(s): C34.92 - Malignant neoplasm of unspecified part of left bronchus or lung (7) UTI (urinary tract infection) Assessment/Plan: -ID on board -no leukocytosis -UA shows 2+ leuks -UC positive -contact precaution -Ertapenem Code(s): N39.0 - URINARY TRACT INFECTION, SITE NOT SPECIFIED (8) Frequent falls Assessment/Plan: -fall precaution -Head CT and Cervical Spine CT no acute pathology -PT Code(s): R29.6 - REPEATED FALLS (9) Anemia Assessment/Plan: -improved -monitor Hg daily -transfuse for Hg <7.0 Code(s): D64.9 - ANEMIA, UNSPECIFIED (10) Hypophosphatemia Assessment/Plan: -Renal on board -Phos-NAK packet x 1 TID -monitor phosphorous level Code(s): E83.39 - OTHER DISORDERS OF PHOSPHORUS METABOLISM (11) Poor appetite Assessment/Plan: -add Ensure -Dietary consult Code(s): R63.0 - ANOREXIA Assessment/Plan see problem list dvt ppx
[2019-04-08] MEDS: ERTAPENEM SODIUM 1 GM in SODIUM CHLORIDE 50 ML IVPB SCH (10:27)
--- NOTE | 2019-04-08 15:43 | PN ---
Progress Note (short form) - Note Progress Note: no diarrhea Vital Signs Period Temp Pulse Resp BP Sys/Paulson Pulse Ox Last 24 Hr 97.9 F-98.8 F 82-91 18-20 105-117/60-68 94-95 cor-rrr lungs clear abd soft,slight tenderness to palpation bilateral LQ ext no edema CBC, BMP 04/04/19 07:53 04/07/19 12:06 Laboratory Tests 03/31/19 04/07/19 04/08/19 08:10 12:06 06:40 C-Reactive Protein 11.0 H 2.4 H 2.2 H Microbiology 03/25/19 18:25 Blood - Peripheral Venous Blood Culture - Final NO GROWTH AFTER 5 DAYS INCUBATION 03/25/19 17:42 Blood - Peripheral Venous Blood Culture - Final NO GROWTH AFTER 5 DAYS INCUBATION 03/25/19 17:56 Urine - Urine Clean Catch Urine Culture - Final Escherichia Coli Enterobacter [place] imp/reccd 79 yo female with metastatic lung cancer-on abraxane no diarrhea repeat ct with some improvement of the collections, protocolitis and cystitis unchanged- ?secondary to radiation d/w Dr Braswell- prior history of esbl ecoli- on day #13 antibiotics slow improvement in abscesses- cannot drain suggest place picc line and treat with iv ertapenem for anther [address] scan in another 10 days would follow crp as well switch flagyl to po suspect sacral pain due to matthew metastasis noted on ct scan plans for possible chemo after abscesses resolve continue contact isolation overall prognosis is poor Problem List - Problems (1) Fever Code(s): R50.9 - FEVER, UNSPECIFIED (2) UTI (urinary tract infection) Code(s): N39.0 - URINARY TRACT INFECTION, SITE NOT SPECIFIED Qualifiers: Urinary tract infection type: site unspecified Hematuria presence: with hematuria Qualified Code(s): N39.0 - Urinary tract infection, site not specified; R31.9 - Hematuria, unspecified (3) Leukopenia Code(s): D72.819 - DECREASED WHITE BLOOD CELL COUNT, UNSPECIFIED (4) Metastatic adenocarcinoma Code(s): C79.9 - SECONDARY MALIGNANT NEOPLASM OF UNSPECIFIED SITE
--- NOTE | 2019-04-08 15:56 | PN ---
Progress Note, Physician History of Present Illness: Pt seen and examined at bedside. She is awake and alert. Her PO intake remains poor. - Current Medication List Current Medications: Active Medications Acetaminophen (Tylenol -) 650 mg PO Q6H PRN PRN Reason: PAIN OR FEVER Last Admin: 04/02/19 20:39 Dose: 650 mg Enoxaparin Sodium (Lovenox -) 40 mg SQ DAILY [facility] Last Admin: 04/08/19 09:23 Dose: 40 mg Fentanyl (Duragesic 25mcg Patch -) 1 patch TD Q72H [facility] Last Admin: 04/06/19 21:45 Dose: 1 patch Fentanyl (Duragesic 12mcg Patch -) 1 patch TD Q72H [facility] Last Admin: 04/06/19 23:17 Dose: 1 patch Hydrocortisone (Anusol 2.5% Hc Cream -) 1 applic TP BID [facility] Last Admin: 04/08/19 09:28 Dose: 1 applic Ertapenem 1 gm/ Sodium (Chloride) 50 mls @ 100 mls/hr IVPB DAILY [facility] Last Admin: 04/08/19 10:27 Dose: 100 mls/hr Insulin Aspart (Novolog Vial Sliding Scale -) 1 vial SQ ACHS [facility]; Protocol Last Admin: 04/08/19 06:06 Dose: Not Given Metronidazole (Flagyl -) 500 mg PO TID [facility] Miscellaneous (Duragesic Patch Waste) 1 each MC PRN PRN PRN Reason: PAIN Last Admin: 04/06/19 21:48 Dose: 1 each Miscellaneous (Duragesic Patch Waste) 1 each MC PRN PRN PRN Reason: PAIN Last Admin: 04/06/19 23:19 Dose: 1 each Ondansetron HCl (Zofran Injection) 4 mg IVPUSH Q8H PRN PRN Reason: NAUSEA Polyethylene Glycol (Miralax (For Daily Use) -) 17 gm PO DAILY [facility] Last Admin: 04/08/19 09:23 Dose: 17 gm Rosuvastatin Calcium (Crestor -) 5 mg PO DAILY [facility] Last Admin: 04/08/19 09:23 Dose: 5 mg - Objective Vital Signs: Vital Signs Temperature 98.0 F 04/08/19 15:04 Pulse Rate 91 H 04/08/19 15:04 Respiratory Rate 18 04/08/19 15:04 Blood Pressure 117/66 04/08/19 15:04 O2 Sat by Pulse Oximetry (%) 94 L 04/08/19 10:00 Constitutional: Yes: Calm Eyes: Yes: Conjunctiva Clear HENT: Yes: Atraumatic Neck: Yes: Supple Cardiovascular: Yes: S1, S2 Respiratory: Yes: CTA Bilaterally Gastrointestinal: Yes: Soft Genitourinary: Yes: WNL Musculoskeletal: Yes: WNL Edema: No Neurological: Yes: Oriented Psychiatric: Yes: Oriented Labs: CBC, BMP 04/04/19 07:53 04/07/19 12:06 INR, PTT INR 1.27 (0.83-1.09) H 03/31/19 08:10 Problem List - Problems (1) Hypophosphatemia Code(s): E83.39 - OTHER DISORDERS OF PHOSPHORUS METABOLISM Assessment/Plan Current Medications Generic Name Dose Route Start Last Admin Trade Name Freq PRN Reason Stop Dose Admin Acetaminophen 650 mg 03/26/19 00:27 04/02/19 20:39 Tylenol - PO 650 mg Q6H PRN Administration PAIN OR FEVER Enoxaparin Sodium 40 mg 03/26/19 10:00 04/08/19 09:23 Lovenox - SQ 40 mg DAILY [facility] Administration Fentanyl 1 patch 04/03/19 22:00 04/06/19 21:45 Duragesic 25mcg Patch - TD 1 patch Q72H [facility] Administration Fentanyl 1 patch 04/03/19 22:00 04/06/19 23:17 Duragesic 12mcg Patch - TD 1 patch Q72H [facility] Administration Hydrocortisone 1 applic 04/03/19 22:00 04/08/19 09:28 Anusol 2.5% Hc Cream - TP 1 applic BID [facility] Administration Ertapenem 1 gm/ Sodium 50 mls @ 100 mls/hr 04/08/19 10:00 04/08/19 10:27 Chloride IVPB 100 mls/hr DAILY [facility] Administration Insulin Aspart 1 vial 03/26/19 11:00 04/08/19 06:06 Novolog Vial Sliding Scale - SQ Not Given ACHS [facility] Protocol Metronidazole 500 mg 04/08/19 22:00 Flagyl - PO TID [facility] Miscellaneous 1 each 03/28/19 03:21 04/06/19 21:48 Duragesic Patch Waste MC 1 each PRN PRN Administration PAIN Miscellaneous 1 each 04/01/19 19:34 04/06/19 23:19 Duragesic Patch Waste MC 1 each PRN PRN Administration PAIN Ondansetron HCl 4 mg 04/02/19 14:03 Zofran Injection IVPUSH Q8H PRN NAUSEA Polyethylene Glycol 17 gm 03/28/19 10:00 04/08/19 09:23 Miralax (For Daily Use) - PO 17 gm DAILY [facility] Administration Rosuvastatin Calcium 5 mg 03/29/19 09:11 04/08/19 09:23 Crestor - PO 5 mg DAILY [facility] Administration Impression 1. hyponatremia 2. lung cancer 3. DM 4. hypokalemia 5. UTI 6. malnutrition Plan - check bmp - check albumin - check phos levels - encourage po intake - cont supplements - pain control
--- NOTE | 2019-04-08 18:47 | PN ---
Progress Note (short form) - Note Progress Note: Patient seen and examined Pain persists Nausea /emesis Anorechtic Sacral and LLQ pains Last Vital Signs Temp Pulse Resp BP Pulse Ox 97.2 F L 86 18 112/57 L 94 L 04/08/19 18:00 04/08/19 18:00 04/08/19 18:00 04/08/19 18:00 04/08/19 10:00 HEENT: ODETTE, EOM Intact Oropharynx: No thrush, No mucositis, smooth red tongue , Cor: RSR, No murmurs, No gallops Lungs:rales at bases Abd: Soft, LLQ mass Ext:No significant edema Skin: No rashes, Integument intact CBC, BMP 04/04/19 07:53 04/07/19 12:06 Current Medications Generic Name Dose Route Start Last Admin Trade Name Freq PRN Reason Stop Dose Admin Acetaminophen 650 mg 03/26/19 00:27 04/02/19 20:39 Tylenol - PO 650 mg Q6H PRN Administration PAIN OR FEVER Enoxaparin Sodium 40 mg 03/26/19 10:00 04/08/19 09:23 Lovenox - SQ 40 mg DAILY [facility] Administration Fentanyl 1 patch 04/03/19 22:00 04/06/19 21:45 Duragesic 25mcg Patch - TD 1 patch Q72H [facility] Administration Fentanyl 1 patch 04/03/19 22:00 04/06/19 23:17 Duragesic 12mcg Patch - TD 1 patch Q72H [facility] Administration Hydrocortisone 1 applic 04/03/19 22:00 04/08/19 09:28 Anusol 2.5% Hc Cream - TP 1 applic BID [facility] Administration Ertapenem 1 gm/ Sodium 50 mls @ 100 mls/hr 04/08/19 10:00 04/08/19 10:27 Chloride IVPB 100 mls/hr DAILY [facility] Administration Insulin Aspart 1 vial 03/26/19 11:00 04/08/19 06:06 Novolog Vial Sliding Scale - SQ Not Given ACHS [facility] Protocol Metronidazole 500 mg 04/08/19 22:00 Flagyl - PO TID [facility] Miscellaneous 1 each 03/28/19 03:21 04/06/19 21:48 Duragesic Patch Waste MC 1 each PRN PRN Administration PAIN Miscellaneous 1 each 04/01/19 19:34 04/06/19 23:19 Duragesic Patch Waste MC 1 each PRN PRN Administration PAIN Ondansetron HCl 4 mg 04/02/19 14:03 Zofran Injection IVPUSH Q8H PRN NAUSEA Polyethylene Glycol 17 gm 03/28/19 10:00 04/08/19 09:23 Miralax (For Daily Use) - PO 17 gm DAILY [facility] Administration Rosuvastatin Calcium 5 mg 03/29/19 09:11 04/08/19 09:23 Crestor - PO 5 mg DAILY [facility] Administration Impression: Metastatic lung ca Pain management Proctocolitis Abscesses Plan:: Continuing with antibiotics per ID To increase fentanyl.
[2019-04-08] MEDS ORDERED: FENTANYL PATCH WASTE MC PRN (18:48)
[2019-04-08] MEDS: fentaNYL 50mcg/hr PATCH.TD72 TD SCH (19:30)
[2019-04-08] MEDS: ACETAMINOPHEN 325 MG TABLET (FP) PO PRN (22:03)
[2019-04-08] MEDS: metroNIDAZOLE 250 MG TABLET PO SCH (22:03)
[2019-04-09] MEDS: metroNIDAZOLE 250 MG TABLET PO SCH ×3 (05:31→22:36)
[2019-04-09 08:49] LABS: ALBUMIN 1.9 g/dl (3.4-5.0); BILIRUBIN,TOTAL 0.3 mg/dL (0.2-1); BLOOD UREA NITROGEN 3.6 mg/dL (7-18); CALCIUM 8.2 mg/dL (8.5-10.1); CREATININE 0.3 mg/dL (0.55-1.3); PHOSPHOROUS 2.8 mg/dL (2.5-4.9); POTASSIUM 3.5 mmol/L (3.5-5.1); TOT PROT 5.3 g/dl (6.4-8.2)
[2019-04-09] MEDS ORDERED: INSULIN (NOVOLOG) ASPART 100 UNITS/ML 10ML VIAL ONE (10:33)
[2019-04-09] MEDS: ERTAPENEM SODIUM 1 GM in SODIUM CHLORIDE 50 ML IVPB SCH (11:01)
[2019-04-09] MEDS: ROSUVASTATIN CA 5 MG TABLET (FP) PO SCH (11:03)
[2019-04-09] MEDS: ENOXAPARIN NA (PORCINE) 40 MG/0.4 ML DISP.SYRIN SQ SCH (11:03)
[2019-04-09] MEDS: POLYETHYLENE GLYCOL 3350 119 GM BTL PO SCH (11:03)
[2019-04-09] MEDS: HYDROCORTISONE 2.5% TOPICAL CREAM 30 GM TUBE TP SCH ×2 (11:03→22:36)
--- NOTE | 2019-04-09 11:07 | PN ---
Progress Note, Physician Chief Complaint: Pericolonic abscess UTI Proctocolitis Metastatic lung cancer History of Present Illness: 79 year old female patient in no distress, alert, with periods of lethargy. Pt states she has some abdominal discomfort. Denies shortness of breath. denies chest pain. Poor appetite. Flagyl changed to PO Needs another 2 weeks of Ertapenem - Current Medication List Current Medications: Active Medications Acetaminophen (Tylenol -) 650 mg PO Q6H PRN PRN Reason: PAIN OR FEVER Last Admin: 04/08/19 22:03 Dose: 650 mg Enoxaparin Sodium (Lovenox -) 40 mg SQ DAILY [facility] Last Admin: 04/09/19 11:03 Dose: 40 mg Fentanyl (Duragesic 50mcg Patch -) 1 patch TD Q72H [facility] Stop: 04/15/19 18:49 Last Admin: 04/08/19 19:30 Dose: 1 patch Hydrocortisone (Anusol 2.5% Hc Cream -) 1 applic TP BID [facility] Last Admin: 04/09/19 11:03 Dose: 1 applic Ertapenem 1 gm/ Sodium (Chloride) 50 mls @ 100 mls/hr IVPB DAILY [facility] Last Admin: 04/09/19 11:01 Dose: 100 mls/hr Insulin Aspart (Novolog Vial Sliding Scale -) 1 vial SQ ACHS [facility]; Protocol Last Admin: 04/08/19 22:04 Dose: Not Given Metronidazole (Flagyl -) 500 mg PO TID [facility] Last Admin: 04/09/19 05:31 Dose: 500 mg Miscellaneous (Duragesic Patch Waste) 1 each MC PRN PRN PRN Reason: PAIN Last Admin: 04/08/19 19:32 Dose: 1 each Ondansetron HCl (Zofran Injection) 4 mg IVPUSH Q8H PRN PRN Reason: NAUSEA Polyethylene Glycol (Miralax (For Daily Use) -) 17 gm PO DAILY [facility] Last Admin: 04/09/19 11:03 Dose: Not Given Rosuvastatin Calcium (Crestor -) 5 mg PO DAILY [facility] Last Admin: 04/09/19 11:03 Dose: 5 mg - Objective Vital Signs: Vital Signs Temperature 98.4 F 04/09/19 06:17 Pulse Rate 75 04/09/19 06:17 Respiratory Rate 22 H 04/09/19 06:17 Blood Pressure 125/71 04/09/19 06:17 O2 Sat by Pulse Oximetry (%) 95 04/08/19 21:00 Constitutional: Yes: Well Nourished, No Distress, Calm Cardiovascular: Yes: Regular Rate and Rhythm Respiratory: Yes: Regular Gastrointestinal: Yes: Soft, Hypoactive Bowel Sounds, Tenderness (BLLQ) Genitourinary: Yes: WNL Breast(s): Yes: WNL Musculoskeletal: Yes: Muscle Weakness Extremities: Yes: WNL Edema: No Peripheral Pulses WNL: Yes Neurological: Yes: Alert, Oriented Psychiatric: Yes: Alert, Oriented Labs: CBC, BMP 04/04/19 07:53 04/09/19 07:10 INR, PTT INR 1.27 (0.83-1.09) H 03/31/19 08:10 Problem List - Problems (1) Proctocolitis with abscess Assessment/Plan: -IV Flagyl -GI on board -Abdominal pain improved -Pain control -Appetite improved -Diet advanced Code(s): K52.9 - NONINFECTIVE GASTROENTERITIS AND COLITIS, UNSPECIFIED; K63.0 - ABSCESS OF INTESTINE (2) Diarrhea Assessment/Plan: -Awaiting stool microbiology Code(s): R19.7 - DIARRHEA, UNSPECIFIED Assessment/Plan (1) Fever Assessment/Plan: -resolved -tylenol prn for temp >100F -UC positive -BC neg -CXR neg -ID on board -Ertapenem and Flagyl (2) Abdominal pain Assessment/Plan: -GI on board -CT scan shows interval development of concentric wall thickening involving the rectosigmoid colon and possibly the ascending colon consistent with acute proctocolitis, asdociated development of 3 x 2cm and 1.7 x 1.5cm paracolic abscessesnoted along left border of sigmoid colon, development of diffuse urinary bladder wall thickening is seen suggestive of acute cystitis, mildly increased size of a focal mass noted within left lower anterior pelvic wall, 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 -IR consult was placed for possible IR drain but unable to be done 2/2 surrounding bowel -pain control -Flagyl -repeat CT scan reviewed, abscess improved Code(s): R10.9 - UNSPECIFIED ABDOMINAL PAIN (3) Diabetes Assessment/Plan: -Diabetic diet -ISS -BGM ACHS -Last A1c at 6.9 in 01/2019 Code(s): E11.9 - TYPE 2 DIABETES MELLITUS WITHOUT COMPLICATIONS (4) HLD (hyperlipidemia) Assessment/Plan: -Crestor Code(s): E78.5 - HYPERLIPIDEMIA, UNSPECIFIED (5) Hyponatremia Assessment/Plan: -improved -monitor electrolyte daily Code(s): E87.1 - HYPO-OSMOLALITY AND HYPONATREMIA (6) Metastatic lung cancer (metastasis from lung to other site) Assessment/Plan: -Oncology on board -palliative consult Code(s): C34.90 - MALIGNANT NEOPLASM OF UNSP PART OF UNSP BRONCHUS OR LUNG Qualifiers: Laterality: left Qualified Code(s): C34.92 - Malignant neoplasm of unspecified part of left bronchus or lung (7) UTI (urinary tract infection) Assessment/Plan: -ID on board -no leukocytosis -UA shows 2+ leuks -UC positive -contact precaution -Ertapenem Code(s): N39.0 - URINARY TRACT INFECTION, SITE NOT SPECIFIED (8) Frequent falls Assessment/Plan: -fall precaution -Head CT and Cervical Spine CT no acute pathology -PT Code(s): R29.6 - REPEATED FALLS (9) Anemia Assessment/Plan: -improved -monitor Hg -transfuse for Hg <7.0 Code(s): D64.9 - ANEMIA, UNSPECIFIED (10) Hypophosphatemia Assessment/Plan: -resolved -Renal on board -monitor phosphorous level Code(s): E83.39 - OTHER DISORDERS OF PHOSPHORUS METABOLISM (11) Poor appetite Assessment/Plan: -Ensure -Dietary consult Code(s): R63.0 - ANOREXIA Assessment/Plan see problem list dvt ppx
--- NOTE | 2019-04-09 11:08 | DS ---
Physical Examination Vital Signs: Vital Signs Temperature 98.4 F 04/09/19 06:17 Pulse Rate 75 04/09/19 06:17 Respiratory Rate 22 H 04/09/19 06:17 Blood Pressure 125/71 04/09/19 06:17 O2 Sat by Pulse Oximetry (%) 95 04/08/19 21:00 Findings/Remarks: This is a 9 y/o woman with a PMHx of Lung Ca (on Chemo- Keytruda last dose last Sunday), HLD, NIDDM, SIADH, Chronic Abdominal Pain, Chronic UTIs. Who presents to the ED with abdominal pain, fever, foul smelling urine. Patient reports having vaginal discharge with pressure. Patient denies cough, SOB, dizziness, CP, palpitations, N/V/D, constipation Constitutional: Yes: Well Nourished, No Distress, Calm Cardiovascular: Yes: Regular Rate and Rhythm Respiratory: Yes: Regular Gastrointestinal: Yes: Soft, Hypoactive Bowel Sounds, Tenderness (BLLQ) Renal/: Yes: WNL Musculoskeletal: Yes: Muscle Weakness Extremities: Yes: WNL Edema: No Peripheral Pulses WNL: Yes Neurological: Yes: Alert, Oriented Psychiatric: Yes: Alert, Oriented Labs: CBC, BMP 04/04/19 07:53 04/09/19 07:10 Discharge Summary Reason For Visit: SEPSIS Current Active Problems Diarrhea (Acute) Fever (Acute) GI (gastrointestinal bleed) (Acute) HLD (hyperlipidemia) (Acute) Hypophosphatemia (Acute) Leukopenia (Acute) Metastatic lung cancer (metastasis from lung to other site) (Acute) Poor appetite (Acute) Proctocolitis with abscess (Acute) Proctocolitis with complication (Acute) Rectal pain (Acute) Sepsis (Acute) UTI (urinary tract infection) (Acute) Hospital Course: Laboratory Last Values WBC 6.4 K/mm3 (4.0-10.0) 04/04/19 07:53 RBC 3.33 M/mm3 (3.60-5.2) L 04/04/19 07:53 Hgb 9.3 GM/dL (10.7-15.3) L 04/04/19 07:53 Hct 28.1 % (32.4-45.2) L 04/04/19 07:53 MCV 84.2 fl (80-96) 04/04/19 07:53 MCH 28.0 pg (25.7-33.7) 04/04/19 07:53 MCHC 33.3 g/dl (32.0-36.0) 04/04/19 07:53 RDW 17.5 % (11.6-15.6) H 04/04/19 07:53 Plt Count 465 K/MM3 (134-434) H 04/04/19 07:53 MPV 6.9 fl (7.5-11.1) L 04/04/19 07:53 Absolute Neuts (auto) 3.7 K/mm3 (1.5-8.0) 03/31/19 08:10 Total Counted 100 03/29/19 09:45 Neutrophils % 63.7 % (42.8-82.8) 03/31/19 08:10 Neutrophils % (Manual) 63.7 % (42.8-82.8) 03/31/19 08:10 Band Neutrophils % 4.0 % 03/29/19 09:45 Lymphocytes % 19.8 % (8-40) 03/31/19 08:10 Lymphocytes % (Manual) 19.8 % (8-40) 03/31/19 08:10 Monocytes % 13.5 % (3.8-10.2) H 03/31/19 08:10 Monocytes % (Manual) 14 % (3.8-10.2) H 03/31/19 08:10 Eosinophils % 1.9 % (0-4.5) 03/31/19 08:10 Eosinophils % (Manual) 1.9 % (0-4.5) 03/31/19 08:10 Basophils % 1.1 % (0-2.0) 03/31/19 08:10 Basophils % (Manual) 1.1 % (0-2.0) 03/31/19 08:10 Myelocytes % (Man) 0 % (0-2) 03/26/19 07:05 Promyelocytes % (Man) 0 % (0-2) 03/26/19 07:05 Blast Cells % (Manual) 0 % (0-0) 03/26/19 07:05 Nucleated RBC % 0 % (0-0) 03/31/19 08:10 Metamyelocytes 0 % (0-2) 03/26/19 07:05 Hypochromia 0 03/26/19 07:05 Platelet Estimate Adequate 03/29/19 09:45 Polychromasia 0 03/26/19 07:05 Poikilocytosis 0 03/26/19 07:05 Anisocytosis 0 03/26/19 07:05 Microcytosis 0 03/26/19 07:05 Macrocytosis 0 03/26/19 07:05 PT with INR 15.00 SEC (9.7-13.0) H 03/31/19 08:10 INR 1.27 (0.83-1.09) H 03/31/19 08:10 PTT (Actin FS) 30.5 SECONDS (25.2-36.5) 03/25/19 17:42 VBG pH 7.48 (7.31-7.41) H 03/25/19 17:42 POC VBG pCO2 36.5 mmHg (38-52) L 03/25/19 17:42 POC VBG pO2 75.2 mmHg (28-48) H 03/25/19 17:42 VBG HCO3 26.7 mmol/L (23-29) 03/25/19 17:42 VBG O2 Sat (Ariana) 95.2 % (70-80) H 03/25/19 17:42 VBG Base Excess 3.4 meq/l (-2-2) H 03/25/19 17:42 Sodium 137 mmol/L (136-145) 04/09/19 07:10 Potassium 3.5 mmol/L (3.5-5.1) 04/09/19 07:10 Chloride 102 mmol/L (98-107) 04/09/19 07:10 Carbon Dioxide 31 mmol/L (21-32) 04/09/19 07:10 Anion Gap 5 MMOL/L (8-16) L 04/09/19 07:10 BUN 3.6 mg/dL (7-18) L 04/09/19 07:10 Creatinine 0.3 mg/dL (0.55-1.3) L 04/09/19 07:10 Est GFR (CKD-EPI)AfAm 128.00 04/09/19 07:10 Est GFR (CKD-EPI)NonAf 110.44 04/09/19 07:10 POC Glucometer 87 UNITS (80-120) 04/09/19 05:36 Random Glucose 94 mg/dL (74-106) 04/09/19 07:10 Lactic Acid 0.8 mmol/L (0.4-2.0) 03/26/19 03:51 Calcium 8.2 mg/dL (8.5-10.1) L 04/09/19 07:10 Phosphorus 2.8 mg/dL (2.5-4.9) 04/09/19 07:10 Magnesium 1.8 mg/dL (1.8-2.4) 04/03/19 06:55 Total Bilirubin 0.3 mg/dL (0.2-1) 04/09/19 07:10 AST 22 U/L (15-37) 04/09/19 07:10 ALT 7 U/L (13-61) L 04/09/19 07:10 Alkaline Phosphatase 96 U/L (45-117) 04/09/19 07:10 Troponin I < 0.02 ng/ml (0.00-0.05) 03/25/19 17:42 C-Reactive Protein 2.2 MG/DL (0.00-0.3) H 04/08/19 06:40 Total Protein 5.3 g/dl (6.4-8.2) L 04/09/19 07:10 Albumin 1.9 g/dl (3.4-5.0) L 04/09/19 07:10 Total Amylase 11 U/L (25-115) L 03/26/19 07:05 Lipase 31 U/L (73-393) L 03/26/19 07:05 Urine Color Yellow 03/25/19 17:56 Urine Appearance Cloudy 03/25/19 17:56 Urine pH 7.0 (5.0-8.0) 03/25/19 17:56 Ur Specific [place] 1.005 (1.010-1.035) L 03/25/19 17:56 Urine Protein 1+ (NEGATIVE) H 03/25/19 17:56 Urine Glucose (UA) Negative (NEGATIVE) 03/25/19 17:56 Urine Ketones Negative (NEGATIVE) 03/25/19 17:56 Urine Blood Trace (NEGATIVE) 03/25/19 17:56 Urine Nitrite Negative (NEGATIVE) 03/25/19 17:56 Urine Bilirubin Negative (NEGATIVE) 03/25/19 17:56 Urine Urobilinogen 0.2 mg/dL (0.2-1.0) 03/25/19 17:56 Ur Leukocyte Esterase 2+ (NEGATIVE) H 03/25/19 17:56 Urine WBC (Auto) 63 /hpf (0-5) 03/25/19 17:56 Urine RBC (Auto) 4 /hpf (0-4) 03/25/19 17:56 Urine Casts (Auto) 11 /lpf (0-8) 03/25/19 17:56 U Epithel Cells (Auto) 1.2 /HPF (0-5/HPF) 03/25/19 17:56 Urine Bacteria (Auto) 26.7 /hpf (NEGATIVE) 03/25/19 17:56 Stool Occult Blood Negative (NEGATIVE) 03/26/19 00:30 Microbiology 03/25/19 18:25 Blood - Peripheral Venous Blood Culture - Final NO GROWTH AFTER 5 DAYS INCUBATION 03/25/19 17:42 Blood - Peripheral Venous Blood Culture - Final NO GROWTH AFTER 5 DAYS INCUBATION 03/25/19 17:56 Urine - Urine Clean Catch Urine Culture - Final Escherichia Coli Enterobacter Cloacae Vital Signs Temp 98.4 F 04/09/19 06:17 Pulse 75 04/09/19 06:17 Resp 22 H 04/09/19 06:17 BP 125/71 04/09/19 06:17 Pulse Ox 95 04/08/19 21:00 Intake & Output 04/08/19 04/08/19 04/09/19 11:59 23:59 11:59 Intake Total 390 270 240 Balance 390 270 240 Intake: IVPB 150 150 Oral 240 120 240 Other: Voiding Method Toilet Toilet # Unmeasured Voids Void 2 2 3 Bowel Movement No Condition: Stable - Instructions Referrals: Trace Taylor MD [Staff Physician] - Disposition: ALF FACILITY - Home Medications Comprehensive Discharge Medication List: Ambulatory Orders Rosuvastatin [Crestor -] 10 mg PO DAILY 07/25/18 Folic Acid - 1 mg PO DAILY #30 tablet 07/31/18 Ondansetron HCl [Zofran] 8 mg PO QID PRN 01/30/19 Ferrous Sulfate [Feosol] 325 mg PO DAILY #30 ud 02/06/19 Acetaminophen [Tylenol .Regular Strength -] 650 mg PO Q6H PRN tablet 04/09/19 Enoxaparin [Lovenox -] 40 mg SQ DAILY disp.syrin 04/09/19 Ertapenem Sodium [Invanz -] 1 gm IVPB DAILY #14 vial 04/09/19 FENTANYL 50mcg PATCH [DURAGESIC 50 mcg PATCH -] 1 patch TD Q72H #10 patch.td72 MDD 1 04/09/19 Hydrocortisone 2.5% Topical Cr [Anusol-Hc -] 1 applic TP BID tube 04/09/19 metroNIDAZOLE [Flagyl -] 500 mg PO TID #14 tablet 04/09/19
[2019-04-09] MEDS: ACETAMINOPHEN 325 MG TABLET (FP) PO PRN (11:09)
[2019-04-09] MEDS: INSULIN SLIDING SCALE (NOVOLOG) 1 VIAL SQ SCH ×2 (12:11→21:32)
[2019-04-09] MEDS ORDERED: PT OWN MED DRAWER 7, Y5N ONE (22:31)
[2019-04-10] MEDS: metroNIDAZOLE 250 MG TABLET PO SCH ×3 (05:39→21:53)
[2019-04-10] MEDS: INSULIN SLIDING SCALE (NOVOLOG) 1 VIAL SQ SCH ×4 (06:07→21:53)
[2019-04-10] MEDS ORDERED: PT OWN MED DRAWER 7, Y5N ONE (09:59)
--- NOTE | 2019-04-10 09:59 | PN ---
Progress Note, Physician Chief Complaint: UTI Metastatic Lung CA History of Present Illness: Previous notes and events reviewed awake and alert NAD patient states feeling better states her appetite has improved pending insurance auth for d/c to SNF - Current Medication List Current Medications: Active Medications Acetaminophen (Tylenol -) 650 mg PO Q6H PRN PRN Reason: PAIN OR FEVER Last Admin: 04/09/19 11:09 Dose: 650 mg Enoxaparin Sodium (Lovenox -) 40 mg SQ DAILY [facility] Last Admin: 04/09/19 11:03 Dose: 40 mg Fentanyl (Duragesic 50mcg Patch -) 1 patch TD Q72H [facility] Stop: 04/15/19 18:49 Last Admin: 04/08/19 19:30 Dose: 1 patch Hydrocortisone (Anusol 2.5% Hc Cream -) 1 applic TP BID [facility] Last Admin: 04/09/19 22:36 Dose: 1 applic Ertapenem 1 gm/ Sodium (Chloride) 50 mls @ 100 mls/hr IVPB DAILY [facility] Last Admin: 04/09/19 11:01 Dose: 100 mls/hr Insulin Aspart (Novolog Vial Sliding Scale -) 1 vial SQ ACHS [facility]; Protocol Last Admin: 04/10/19 06:07 Dose: Not Given Metronidazole (Flagyl -) 500 mg PO TID [facility] Last Admin: 04/10/19 05:39 Dose: 500 mg Miscellaneous (Duragesic Patch Waste) 1 each MC PRN PRN PRN Reason: PAIN Last Admin: 04/08/19 19:32 Dose: 1 each Ondansetron HCl (Zofran Injection) 4 mg IVPUSH Q8H PRN PRN Reason: NAUSEA Polyethylene Glycol (Miralax (For Daily Use) -) 17 gm PO DAILY [facility] Last Admin: 04/09/19 11:03 Dose: Not Given Rosuvastatin Calcium (Crestor -) 5 mg PO DAILY [facility] Last Admin: 04/09/19 11:03 Dose: 5 mg - Objective Vital Signs: Vital Signs Temperature 98.7 F 04/10/19 06:53 Pulse Rate 91 H 04/10/19 06:53 Respiratory Rate 17 04/10/19 06:53 Blood Pressure 100/47 L 04/10/19 06:53 O2 Sat by Pulse Oximetry (%) 96 04/09/19 21:00 Constitutional: Yes: No Distress, Calm Eyes: Yes: Conjunctiva Clear HENT: Yes: Atraumatic Cardiovascular: Yes: Regular Rate and Rhythm Respiratory: Yes: Regular, CTA Bilaterally Gastrointestinal: Yes: Normal Bowel Sounds, Soft, Tenderness (llq) Musculoskeletal: Yes: Muscle Weakness Extremities: Yes: WNL Edema: No Neurological: Yes: Alert, Weakness Psychiatric: Yes: Alert Labs: CBC, BMP 04/04/19 07:53 04/09/19 07:10 INR, PTT INR 1.27 (0.83-1.09) H 03/31/19 08:10 - ....Imaging Cat Scan: Report Reviewed Problem List - Problems (1) Fever Assessment/Plan: -resolved -tylenol prn for temp >100F -UC positive -BC neg -CXR neg -ID on board -Ertapenem and Flagyl (2) Abdominal pain Assessment/Plan: -GI on board -CT scan shows interval development of concentric wall thickening involving the rectosigmoid colon and possibly the ascending colon consistent with acute proctocolitis, asdociated development of 3 x 2cm and 1.7 x 1.5cm paracolic abscessesnoted along left border of sigmoid colon, development of diffuse urinary bladder wall thickening is seen suggestive of acute cystitis, mildly increased size of a focal mass noted within left lower anterior pelvic wall, 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 -IR consult was placed for possible IR drain but unable to be done 2/2 surrounding bowel -pain control -Flagyl and Ertapenem -CT scan shows abscess improve and decrease in size -patient will need IV Ertapenem for 2 weeks and will need PICC line placement, will order PICC line placement when accepted to SNF -will need repeat CT scan in 10 days to monitor abscess size Code(s): R10.9 - UNSPECIFIED ABDOMINAL PAIN (3) Diabetes Assessment/Plan: -Diabetic diet -ISS -BGM ACHS Code(s): E11.9 - TYPE 2 DIABETES MELLITUS WITHOUT COMPLICATIONS (4) HLD (hyperlipidemia) Assessment/Plan: -Crestor Code(s): E78.5 - HYPERLIPIDEMIA, UNSPECIFIED (5) Hyponatremia Assessment/Plan: -Na 137 -improved -monitor electrolyte daily Code(s): E87.1 - HYPO-OSMOLALITY AND HYPONATREMIA (6) Metastatic lung cancer (metastasis from lung to other site) Assessment/Plan: -Oncology on board -palliative consult Code(s): C34.90 - MALIGNANT NEOPLASM OF UNSP PART OF UNSP BRONCHUS OR LUNG Qualifiers: Laterality: left Qualified Code(s): C34.92 - Malignant neoplasm of unspecified part of left bronchus or lung (7) UTI (urinary tract infection) Assessment/Plan: -ID on board -no leukocytosis -UA shows 2+ leuks -UC positive -contact precaution -Ertapenem Code(s): N39.0 - URINARY TRACT INFECTION, SITE NOT SPECIFIED Qualifiers: Urinary tract infection type: site unspecified Hematuria presence: with hematuria Qualified Code(s): N39.0 - Urinary tract infection, site not specified; R31.9 - Hematuria, unspecified (8) Frequent falls Assessment/Plan: -fall precaution -Head CT and Cervical Spine CT no acute pathology -PT Code(s): R29.6 - REPEATED FALLS (9) Anemia Assessment/Plan: -Hg 9.3 -monitor Hg daily -transfuse for Hg <8.0 Code(s): D64.9 - ANEMIA, UNSPECIFIED (10) Hypophosphatemia Assessment/Plan: -Renal on board -Phos 2.8 -Phos-NAK packet x 1 TID -monitor phosphorous level Code(s): E83.39 - OTHER DISORDERS OF PHOSPHORUS METABOLISM (11) Poor appetite Assessment/Plan: -Glucerna -Dietary consult Code(s): R63.0 - ANOREXIA (12) Severe malnutrition Assessment/Plan: - Glucerna -Dietary consult Code(s): E43 - UNSPECIFIED SEVERE PROTEIN-CALORIE MALNUTRITION Assessment/Plan see problem list dvt ppx
[2019-04-10] MEDS: ENOXAPARIN NA (PORCINE) 40 MG/0.4 ML DISP.SYRIN SQ SCH (10:06)
[2019-04-10] MEDS: POLYETHYLENE GLYCOL 3350 119 GM BTL PO SCH (10:06)
[2019-04-10] MEDS: ROSUVASTATIN CA 5 MG TABLET (FP) PO SCH (10:06)
[2019-04-10] MEDS: HYDROCORTISONE 2.5% TOPICAL CREAM 30 GM TUBE TP SCH ×2 (10:07→21:53)
[2019-04-10] MEDS: ERTAPENEM SODIUM 1 GM in SODIUM CHLORIDE 50 ML IVPB SCH (10:43)
[2019-04-11] MEDS: metroNIDAZOLE 250 MG TABLET PO SCH ×2 (05:12→15:00)
[2019-04-11] MEDS: INSULIN SLIDING SCALE (NOVOLOG) 1 VIAL SQ SCH ×2 (06:46→16:16)
[2019-04-11] MEDS: ENOXAPARIN NA (PORCINE) 40 MG/0.4 ML DISP.SYRIN SQ SCH (09:09)
[2019-04-11] MEDS: ROSUVASTATIN CA 5 MG TABLET (FP) PO SCH (09:09)
[2019-04-11] MEDS: POLYETHYLENE GLYCOL 3350 119 GM BTL PO SCH (10:00)
[2019-04-11] MEDS: HYDROCORTISONE 2.5% TOPICAL CREAM 30 GM TUBE TP SCH (10:00)
[2019-04-11 15:14] VITALS: BP 140/77; PULSE 98; TEMP 98.1
[2019-04-11] MEDS ORDERED: PT OWN MED DRAWER 7, Y5N ONE (15:49)
[2019-04-11] MEDS: ERTAPENEM SODIUM 1 GM in SODIUM CHLORIDE 50 ML IVPB SCH (16:09)
--- NOTE | 2019-04-11 16:38 | DS ---
Physical Examination Vital Signs: Vital Signs Temperature 98.1 F 04/11/19 09:00 Pulse Rate 98 H 04/11/19 09:00 Respiratory Rate 20 04/11/19 09:00 Blood Pressure 140/77 04/11/19 09:00 O2 Sat by Pulse Oximetry (%) 95 04/10/19 21:00 Constitutional: Yes: No Distress, Calm Eyes: Yes: Conjunctiva Clear HENT: Yes: Atraumatic Cardiovascular: Yes: Regular Rate and Rhythm Respiratory: Yes: Regular, CTA Bilaterally Gastrointestinal: Yes: Normal Bowel Sounds, Soft, Tenderness (llq) Musculoskeletal: Yes: Muscle Weakness Extremities: Yes: WNL, Other (RUE PICC) Edema: No Neurological: Yes: Alert, Oriented, Weakness Psychiatric: Yes: Alert, Oriented Labs: CBC, BMP 04/04/19 07:53 04/09/19 07:10 Discharge Summary Reason For Visit: SEPSIS Current Active Problems Diarrhea (Acute) Fever (Acute) GI (gastrointestinal bleed) (Acute) HLD (hyperlipidemia) (Acute) Hypophosphatemia (Acute) Leukopenia (Acute) Metastatic lung cancer (metastasis from lung to other site) (Acute) Poor appetite (Acute) Proctocolitis with abscess (Acute) Proctocolitis with complication (Acute) Rectal pain (Acute) Sepsis (Acute) Severe malnutrition (Acute) UTI (urinary tract infection) (Acute) Hospital Course: This is a 9 y/o woman with a PMHx of Lung Ca (on Chemo- Keytruda last dose last Sunday), HLD, NIDDM, SIADH, Chronic Abdominal Pain, Chronic UTIs. Who presents to the ED with abdominal pain, fever, foul smelling urine. Patient reports having vaginal discharge with pressure. Patient denies cough, SOB, dizziness, CP, palpitations, N/V/D, constipation While in patient treated with IV antibiotics. While in patient noted to have pericolonic abscess. Patient must continue with IV Ertapenem for 2 weeks. PICC line placed with no adverse reactions. Condition: Stable - Instructions Referrals: Trace Taylor MD [Staff Physician] - Disposition: HALFWAY FACILITY - Home Medications Comprehensive Discharge Medication List: Ambulatory Orders Rosuvastatin [Crestor -] 10 mg PO DAILY 07/25/18 Folic Acid - 1 mg PO DAILY #30 tablet 07/31/18 Ondansetron HCl [Zofran] 8 mg PO QID PRN 01/30/19 Ferrous Sulfate [Feosol] 325 mg PO DAILY #30 ud 02/06/19 Acetaminophen [Tylenol .Regular Strength -] 650 mg PO Q6H PRN tablet 04/09/19 Enoxaparin [Lovenox -] 40 mg SQ DAILY disp.syrin 04/09/19 Ertapenem Sodium [Invanz -] 1 gm IVPB DAILY #14 vial 04/09/19 FENTANYL 50mcg PATCH [DURAGESIC 50 mcg PATCH -] 1 patch TD Q72H #10 patch.td72 MDD 1 04/09/19 Hydrocortisone 2.5% Topical Cr [Anusol-Hc -] 1 applic TP BID tube 04/09/19 metroNIDAZOLE [Flagyl -] 500 mg PO TID #14 tablet 04/09/19
[2019-04-11] MEDS: fentaNYL 50mcg/hr PATCH.TD72 TD SCH (18:00)
== END 2019-04-11 18:34 | DRG 385 ==
LOC: JER 16:15 → SUPCPDRO 16:15 → JERBED 23:00 → J6S 03-26 03:06
PROVIDERS: ADMIT Family Medicine; ATTEND Family Medicine
PROC: 02HV33Z Insertion of Infusion Device into Superior Vena Cava, Percutaneous Approach (ICD-10-PCS; principal; 2019-04-11)
PROC: B518ZZA Fluoroscopy of Superior Vena Cava, Guidance (ICD-10-PCS; 2019-04-11)
DX: K51.314 Ulcerative (chronic) rectosigmoiditis with abscess (principal); E43 Unspecified severe protein-calorie malnutrition; C34.90 Malignant neoplasm of unspecified part of unspecified bronchus or lung; C79.51 Secondary malignant neoplasm of bone; E87.1 Hypo-osmolality and hyponatremia; N39.0 Urinary tract infection, site not specified; R18.8 Other ascites; K92.2 Gastrointestinal hemorrhage, unspecified; N17.9 Acute kidney failure, unspecified; E11.9 Type 2 diabetes mellitus without complications; E78.5 Hyperlipidemia, unspecified; I10 Essential (primary) hypertension; E87.6 Hypokalemia; R50.9 Fever, unspecified; R10.9 Unspecified abdominal pain; D64.9 Anemia, unspecified; D72.819 Decreased white blood cell count, unspecified; K62.89 Other specified diseases of anus and rectum; R29.6 Repeated falls; E83.39 Other disorders of phosphorus metabolism; K52.89 Other specified noninfective gastroenteritis and colitis; R19.7 Diarrhea, unspecified; K57.90 Diverticulosis of intestine, part unspecified, without perforation or abscess without bleeding; N89.8 Other specified noninflammatory disorders of vagina; R62.7 Adult failure to thrive; R63.0 Anorexia; Z68.24 Body mass index [BMI] 24.0-24.9, adult; Z87.19 Personal history of other diseases of the digestive system
CPT/HCPCS: 36415; 36569; 70450-TC; 71045-TC-FY; 72125-TC; 74177-TC; 74178-TC; 80048; 80053; 81003; 82150; 82272; 82803; 82962; 83605; 83690; 83735; 84100; 84484; 85025; 85027; 85610; 85730; 86140; 87040; 87086; 87186; 93005; 93010; 97116-GP; 97161-GP; 99285-25; J0131; J7030; Q9967

== ENCOUNTER → 2019-03-26 | Day surgery (SDC) | payer OTHER | LOC: JONCCHEMO 08:13 ==

== ENCOUNTER 2019-04-26 14:50 | Inpatient (IN) | payer OTHER ==
--- NOTE | 2019-04-26 15:42 | PDOC ---
History of Present Illness - History of Present Illness Initial Comments: 04/26/19 16:40 79 y/o F NAZARIO from [facility] hx of metastatic Lung Ca on tr, NIDDM, diverticulitis with pericolonic abcess presents to the ER with 1 week of LUQ pain. The pain has been constant throbbing pain in her LUQ radiating to her back. Pain has been temporarily relieved by pain medications at the facility but always returns eventually. She has been nauseous but has had no episodes of vomiting.She was recently discharged from the hospital on 04/11/2019 where she was treated for UTI and pericolonic abscess. She denies any fevers, chills, diarrhea, dark stools, chest pain. She reports her last chemotherapy treatment was 2-3 weeks ago. 04/26/19 17:13 04/26/19 19:03 <Arina Tejada - Last Filed: 05/12/19 23:28> <Dayami Gary - Last Filed: 05/15/19 09:19> - General Chief Complaint: Pain Stated Complaint: ABDOMINAL PAIN Time Seen by Provider: 04/26/19 15:15 Past History - Past Medical History Cancer: Yes (Metastatic Lung carcinoma - on Keytruda) COPD: No Diabetes: Yes (Type II) GI Disorders: Yes (Diverticulitis w/abscess an I&D) Disorders: (Freq. UTI's) Hypercholesterolemia: Yes Thyroid Disease: Yes - Immunization History Immunization Up to Date: No - Psycho Social/Smoking Cessation Hx Smoking History: Never smoked Have you smoked in the past 12 months: No If you are a former smoker, when did you quit?: 3 yrs ago Hx Alcohol Use: No Drug/Substance Use Hx: No Substance Use Type: None Hx Substance Use Treatment: No <Arina Tejada - Last Filed: 05/12/19 23:28> <Dayami Gary - Last Filed: 05/15/19 09:19> - Past Medical History Allergies/Adverse Reactions: Allergies Allergy/AdvReac Type Severity Reaction Status Date / Time No Known Allergies Allergy Verified 03/10/19 18:01 Home Medications: Ambulatory Orders Rosuvastatin [Crestor -] 10 mg PO DAILY 07/25/18 Folic Acid - 1 mg PO DAILY #30 tablet 07/31/18 Ferrous Sulfate [Feosol] 325 mg PO DAILY #30 ud 02/06/19 FENTANYL 50mcg PATCH [DURAGESIC 50 mcg PATCH -] 1 patch TD Q72H #10 patch.td72 MDD 1 04/09/19 Polyethylene Glycol 3350 [Glycolax] 17 gm PO DAILY 04/26/19 Fentanyl Patch Waste [Duragesic Patch Waste] 1 each TD PRN PRN each 05/05/19 Heparin - 5,000 unit SQ BID vial 05/05/19 Insulin Sliding Scale [Novolog Vial Sliding Scale -] 1 vial SQ ACHS units 05/05 Magnesium Oxide [Mag-Ox -] 400 mg PO BID tablet 05/05/19 Mirtazapine [Remeron -] 7.5 mg PO HS tablet 05/05/19 Naph,Mb-Db/K pH,Mbdb [PHOS-NaK PACKET -] 1 packet PO BID pow 05/05/19 Nystatin Ointment [Mycostatin Ointment -] 1 applic TP BID applic 05/05/19 Ondansetron [Zofran -] 4 mg PO Q6H PRN tablet 05/05/19 Review of Systems - Review of Systems Constitutional: No: Chills, Fever HEENTM: No: Eye Pain, Blurred Vision Respiratory: No: Cough Cardiac (ROS): No: Chest Pain ABD/GI: No: Abdominal Distended, Vomiting : No: Burning, Dysuria Musculoskeletal: No: Back Pain Integumentary: No: Bruising, Change in Color Neurological: No: Headache, Numbness <Arina Tejada - Last Filed: 05/12/19 23:28> *Physical Exam - Vital Signs Last Vital Signs Temp Pulse Resp BP Pulse Ox 97.6 F 79 20 132/70 100 04/26/19 14:52 04/26/19 14:52 04/26/19 14:52 04/26/19 14:52 04/26/19 14:52 - Physical Exam Comments: 04/26/19 16:45 GENERAL: Awake, alert, and fully oriented, in distress and crying. thin appearing. HEAD: No signs of trauma, normocephalic, atraumatic EYES: PERRLA, EOMI, sclera anicteric, conjunctiva clear ENT: Auricles normal inspection, hearing grossly normal, nares patent, oropharynx clear without exudates. Moist mucosa NECK: Normal ROM, supple, no lymphadenopathy, JVD, or masses LUNGS: No distress, on 2L of O2 nasal cannula.. Fine crackles in lung bases. HEART: Regular rate and rhythm, normal S1 and S2, no murmurs, rubs or gallops, peripheral pulses normal and equal bilaterally. ABDOMEN: Soft, tenderness to palpation in epigastric area and LUQ. Street's sign negative. no CVA tenderness. EXTREMITIES : Normal inspection, Normal range of motion, no edema. No clubbing or cyanosis NEUROLOGICAL: Cranial nerves II through XII grossly intact. Normal speech,no focal sensorimotor deficits SKIN: Warm, Dry, normal turgor, no rashes or lesions noted <Arina Tejada - Last Filed: 05/12/19 23:28> - Vital Signs Last Vital Signs Temp Pulse Resp BP Pulse Ox 99.9 F H 109 H 20 100/52 L 97 05/15/19 06:00 05/15/19 06:00 05/14/19 21:00 05/15/19 06:00 05/14/19 21:00 <Dayami Gary - Last Filed: 05/15/19 09:19> ED Treatment Course - LABORATORY CBC & Chemistry Diagram: 05/12/19 06:50 05/12/19 06:50 <Arina Tejada - Last Filed: 05/12/19 23:28> - LABORATORY CBC & Chemistry Diagram: 05/14/19 08:45 05/14/19 08:45 - ADDITIONAL ORDERS Additional order review: 04/26/19 16:00 Blood Culture - Final Blood - Peripheral Venous NO GROWTH AFTER 5 DAYS INCUBATION 04/26/19 16:00 Blood Culture - Final Blood - Peripheral Venous NO GROWTH AFTER 5 DAYS INCUBATION 04/26/19 16:00 RBC 3.85 MCV 86.2 MCHC 32.2 RDW 19.2 H MPV 7.0 L Neutrophils % 68.3 Lymphocytes % 21.3 Monocytes % 7.1 Eosinophils % 2.8 Basophils % 0.5 - Medications Given in the ED: ED Medications Discontinued Medications Generic Name Dose Route Start Last Admin Trade Name Freq PRN Reason Stop Dose Admin Colchicine 0.6 mg 05/05/19 15:24 05/05/19 16:26 Colcrys PO 05/05/19 15:25 0.6 mg ONCE ONE Administration Colchicine 0.6 mg 05/06/19 14:27 05/06/19 15:55 Colcrys PO 05/06/19 14:28 0.6 mg ONCE ONE Administration Ferrous Sulfate 325 mg 04/27/19 10:00 05/11/19 09:35 Feosol - PO 325 mg DAILY LYNN Administration Hydromorphone HCl 0.5 mg 04/26/19 16:04 04/26/19 16:16 Dilaudid Injection - IVPUSH 04/26/19 16:05 0.5 mg ONCE ONE Administration Ertapenem 1 gm/ Sodium 50 mls @ 100 mls/hr 04/26/19 19:41 04/26/19 20:24 Chloride IVPB 04/26/19 20:10 100 mls/hr ONCE ONE Administration Sodium Chloride 1,000 mls @ 75 mls/hr 04/26/19 22:45 04/26/19 23:40 Normal Saline - IV 04/27/19 12:04 75 mls/hr ASDIR LYNN Administration Ertapenem 1 gm/ Sodium 50 mls @ 100 mls/hr 04/27/19 10:00 04/28/19 09:51 Chloride IVPB 100 mls/hr DAILY LYNN Administration Metronidazole 500 mg in 100 mls @ 100 mls/hr 04/26/19 23:00 04/28/19 14:52 Flagyl 500mg Premixed Ivpb - IVPB 100 mls/hr Q6H-IV LYNN Administration Sodium Chloride 1,000 mls @ 75 mls/hr 04/27/19 22:30 04/29/19 21:44 Normal Saline - IV 75 mls/hr ASDIR LYNN Administration Piperacillin Sod/Tazobactam 50 mls @ 100 mls/hr 04/29/19 02:00 05/05/19 10:51 Sod 3.375 gm/ Dextrose IVPB 100 mls/hr Q8H-IV LYNN Administration Protocol Potassium Chloride 20 meq/ 1,010 mls @ 55 mls/hr 04/30/19 21:00 04/30/19 22: 21 Amino Acids IVPB 55 mls/hr Q24H LYNN Administration Potassium Chloride 20 meq/ 1,010 mls @ 55 mls/hr 05/01/19 17:00 05/02/19 11: 46 Amino Acids IVPB 55 mls/hr Q18H LYNN Administration Sodium Phosphate 20 mm/ Sodium 256.6667 mls @ 42.778 mls/hr 05/01/19 17:00 17:45 Chloride IVPB 05/01/19 22:59 42.778 mls/hr ONCE ONE Administration Potassium Phosphate 20 mm/ 256.6667 mls @ 42.77 mls/hr 05/02/19 12:00 13:00 Sodium Chloride IVPB 05/02/19 18:00 42.77 mls/hr ONCE ONE Administration 20 MM/6 HR Potassium Chloride 20 meq/ 1,010 mls @ 42 mls/hr 05/02/19 17:00 05/12/19 17: 28 Amino Acids IVPB 42 mls/hr Q24H LYNN Administration Iron Sucrose 200 mg/ Sodium 100 mls @ 100 mls/hr 05/03/19 19:15 05/03/19 21: 59 Chloride IVPB 05/03/19 20:14 100 mls/hr ONCE ONE Administration Iron Sucrose 200 mg/ Sodium 100 mls @ 100 mls/hr 05/05/19 10:00 05/05/19 09: 33 Chloride IVPB 05/05/19 10:59 100 mls/hr ONCE ONE Administration Vancomycin HCl 750 mg/ 250 mls @ 250 mls/hr 05/09/19 16:00 05/13/19 16:53 Dextrose IVPB 05/13/19 17:00 250 mls/hr Q24H LYNN Administration Protocol Lactated Ringer's 1,000 ml 04/26/19 19:41 04/26/19 20:24 Lactated Ringers Solution IV 04/26/19 19:42 1,000 ml ONCE ONE Administration Magnesium Sulfate 2 gm 05/02/19 10:57 05/02/19 12:01 Magnesium Sulfate IVPB 05/02/19 10:58 2 gm ONCE ONE Administration Morphine Sulfate 2 mg 05/04/19 12:26 05/06/19 06:35 Morphine Sulfate IVPUSH 2 mg Q6H PRN Administration PAIN LEVEL 6-10 Morphine Sulfate 30 mg 05/06/19 16:45 05/09/19 09:05 Ms Contin - PO 05/09/19 16:44 30 mg Q8H LYNN Administration Potassium Chloride 40 meq 04/30/19 13:56 04/30/19 15:53 Potassium Chloride Oral Liquid PO 04/30/19 13:57 40 meq ONCE ONE Administration Sodium Chloride 1 gm 05/13/19 15:33 05/13/19 22:34 Sodium Chloride Tablet - PO 05/13/19 22:01 1 gm BID LYNN Administration Sodium Chloride 1 gm 05/14/19 12:18 05/14/19 18:14 Sodium Chloride Tablet - PO 05/14/19 12:19 1 gm ONCE ONE Administration <Dayami Gary - Last Filed: 05/15/19 09:19> Medical Decision Making - Medical Decision Making 04/26/19 16:48 79 y/o F BIBEMS from [facility] hx of metastatic Lung Ca on Keytruda, NIDDM, diverticulitis with presents to the ER with 1 week of LUQ pain. ekg, cbc, cmp, lipase, lactate abdomen and pelvis ct, portable chest x-ray Meds: 0.5 mg of dilaudid IV for pain 04/26/19 16:56 Reassesment: Pt, still in pain but feeling better and not in visible distress. 04/26/19 17:01 EKG: normal sinus rhythm cannot rule out anterior infarct, age undetermined 04/26/19 18:04 CXR new density in right mid lunf field likely representing some focal atelactasis and/or prominince of the anterior costal cartilage of the right 5th rib. Hear appears smaller. correlation recommended Abdomen and pelvis CT read pending Pt .signed out to Dr. Farah dispo depends on CT results 04/26/19 19:05 <Arina Tejada - Last Filed: 05/12/19 23:28> Discharge - Discharge Information Problems reviewed: Yes <Arina Tejada - Last Filed: 05/12/19 23:28> - Admission Yes <Dayami Gary - Last Filed: 05/15/19 09:19> - Discharge Information Clinical Impression/Diagnosis: Acute diverticulitis Condition: Fair Disposition: VNS/HOME HEALTH CARE
[2019-04-26] MEDS ORDERED: HYDROmorphone HCL CARPU-JECT 2 MG/1 ML DISP.SYRIN IVPUSH ONE (16:04)
--- NOTE | 2019-04-26 16:09 | PDOC ---
Attending Attestation - Resident Resident Name: [email or web address] - ED Attending Attestation I have performed the following: I have examined & evaluated the patient, The case was reviewed & discussed with the resident, I agree w/resident's findings & plan, Exceptions are as noted - HPI HPI: 04/26/19 16:00 79 F with h/o metastatic lung adenoCA s/p immunotherapy, not currently on treatment, recently diagnosed pericolonic abscess s/p tx with ertapenem, presenting to ED with abdominal pain. Pt states that the pain began 1 week ago. It is localized to LUQ and radiates to back. Comes and goes. Pt states she has been getting pain medication at [place] with temporary relief. Endorses nausea. Denies F/C. Denies diarrhea/constipation. - Physicial Exam PE: 04/26/19 16:09 "GENERAL: Awake, alert, and fully oriented, in no acute distress. HEAD: No signs of trauma EYES: PERRLA, EOMI, sclera anicteric, conjunctiva clear ENT: Auricles normal inspection, hearing grossly normal, nares patent, oropharynx clear without exudates. Moist mucosa NECK: Nontender, no stepoffs, Normal ROM, supple, no lymphadenopathy, JVD, or masses LUNGS: Breath sounds equal, clear to auscultation bilaterally. No wheezes, and no crackles HEART: Regular rate and rhythm, normal S1 and S2, no murmurs, rubs or gallops ABDOMEN: + LUQ TTP, normoactive bowel sounds. No guarding, no rebound. No masses EXTREMITIES: Normal range of motion, no edema. No clubbing or cyanosis. No cords, erythema, or tenderness NEUROLOGICAL: Cranial nerves II through XII intact. 5/5 strength and sensation in all extremities, Normal speech, normal gait, normal cerebellar function SKIN: Warm, Dry, normal turgor, no rashes or lesions noted. - Medical Decision Making 04/26/19 16:09 79 F with metastatic lung CA, recent pericolonic abscess, presenting with abdominal pain. - Labs, lipase, lactate - CTAP - Pain control
[2019-04-26] MEDS ORDERED: HYDROmorphone HCl 2 MG/ML VIAL ONE (16:11)
[2019-04-26 16:29] LABS: BASO % 0.5 % (0-2.0); EOS % 2.8 % (0-4.5); HEMATOCRIT 33.2 % (32.4-45.2); HEMOGLOBIN 10.7 GM/dL (10.7-15.3); LYMPH % 21.3 % (8-40); MCH 27.7 pg (25.7-33.7); MCHC 32.2 g/dl (32.0-36.0); MEAN CELL VOLUME 86.2 fl (80-96); MONO % 7.1 % (3.8-10.2); NEUT % 68.3 % (42.8-82.8); PLATELET COUNT 483 K/MM3 (134-434); RBC 3.85 M/mm3 (3.60-5.2); RDW 19.2 % (11.6-15.6)
[2019-04-26 17:22] LABS: ALBUMIN 2.2 g/dl (3.4-5.0); BILIRUBIN,TOTAL 0.3 mg/dL (0.2-1); BLOOD UREA NITROGEN 4.3 mg/dL (7-18); CALCIUM 8.4 mg/dL (8.5-10.1); CREATININE 0.3 mg/dL (0.55-1.3); POTASSIUM 3.9 mmol/L (3.5-5.1)
[2019-04-26] MEDS ORDERED: LACTATED RINGERS SOLUTION 1000 ML INFUS.BAG IV ONE (19:41)
[2019-04-26] MEDS ORDERED: ERTAPENEM SODIUM 1 GM in SODIUM CHLORIDE 50 ML IVPB ONE (19:41)
--- NOTE | 2019-04-26 19:43 | PDOC ---
*Physical Exam - Vital Signs Last Vital Signs Temp Pulse Resp BP Pulse Ox 97.9 F 84 18 133/66 95 04/26/19 18:38 04/26/19 18:38 04/26/19 18:38 04/26/19 18:38 04/26/19 18:38 ED Treatment Course - LABORATORY CBC & Chemistry Diagram: 04/26/19 16:00 04/26/19 16:00 - ADDITIONAL ORDERS Additional order review: Laboratory Results 04/26/19 04/26/19 04/26/19 16:00 16:00 16:00 Sodium 138 Potassium 3.9 Chloride 100 Carbon Dioxide 30 Anion Gap 8 BUN 4.3 L Creatinine 0.3 L Est GFR (CKD-EPI)AfAm 128.00 Est GFR (CKD-EPI)NonAf 110.44 Random Glucose 84 Lactic Acid 1.1 Calcium 8.4 L Total Bilirubin 0.3 AST 27 ALT 13 Alkaline Phosphatase 145 H Creatine Kinase 16 L Troponin I < 0.02 Total Protein 7.0 Albumin 2.2 L Lipase 46 L 04/26/19 16:00 RBC 3.85 MCV 86.2 MCHC 32.2 RDW 19.2 H MPV 7.0 L Neutrophils % 68.3 Lymphocytes % 21.3 Monocytes % 7.1 Eosinophils % 2.8 Basophils % 0.5 - Medications Given in the ED: ED Medications Discontinued Medications Generic Name Dose Route Start Last Admin Trade Name Freq PRN Reason Stop Dose Admin Hydromorphone HCl 0.5 mg 04/26/19 16:04 04/26/19 16:16 Dilaudid Injection - IVPUSH 04/26/19 16:05 0.5 mg ONCE ONE Administration Medical Decision Making - Medical Decision Making 04/26/19 19:43 in summary, 79 y/o F BIBEMS from [facility] hx of metastatic Lung Ca on Keytruda, NIDDM, diverticulitis with recent pericolonic abcess presents to the ER with 1 week of LUQ pain. had recently completed ertapenem and flagyl course for abscess. s/o from Dr Wells pending imaging, workup and reassessment given dilaudid for pain additional IVF given CT with sigmoid diverticulitis, still present, no def fluid collection, will treat with another dose IV abx, ertapenem, cultures pending admit to medical service for continued management. Discharge - Discharge Information Problems reviewed: Yes Clinical Impression/Diagnosis: Acute diverticulitis Condition: Fair - Admission Yes - Follow up/Referral Referrals: Lauro Donahue [Primary Care Provider] - - Patient Discharge Instructions - Post Discharge Activity
[2019-04-26] MEDS ORDERED: ERTAPENEM SODIUM 1 GM VIAL ONE (20:16)
--- NOTE | 2019-04-26 20:38 | PDOC ---
*Physical Exam - Vital Signs Last Vital Signs Temp Pulse Resp BP Pulse Ox 97.9 F 84 18 133/66 95 04/26/19 18:38 04/26/19 18:38 04/26/19 18:38 04/26/19 18:38 04/26/19 18:38 <Ben Farah - Last Filed: 04/29/19 09:03> - Vital Signs Last Vital Signs Temp Pulse Resp BP Pulse Ox 98.6 F 81 20 124/58 L 99 04/30/19 06:29 04/30/19 06:29 04/30/19 06:29 04/30/19 06:29 04/29/19 22:00 <Dayami Gary Cookieedmarmariano - Last Filed: 04/30/19 11:55> ED Treatment Course - LABORATORY CBC & Chemistry Diagram: 04/28/19 07:25 04/28/19 07:25 - ADDITIONAL ORDERS Additional order review: Laboratory Results 04/26/19 04/26/19 04/26/19 16:00 16:00 16:00 Sodium 138 Potassium 3.9 Chloride 100 Carbon Dioxide 30 Anion Gap 8 BUN 4.3 L Creatinine 0.3 L Est GFR (CKD-EPI)AfAm 128.00 Est GFR (CKD-EPI)NonAf 110.44 Random Glucose 84 Lactic Acid 1.1 Calcium 8.4 L Total Bilirubin 0.3 AST 27 ALT 13 Alkaline Phosphatase 145 H Creatine Kinase 16 L Troponin I < 0.02 Total Protein 7.0 Albumin 2.2 L Lipase 46 L 04/26/19 16:00 RBC 3.85 MCV 86.2 MCHC 32.2 RDW 19.2 H MPV 7.0 L Neutrophils % 68.3 Lymphocytes % 21.3 Monocytes % 7.1 Eosinophils % 2.8 Basophils % 0.5 - Medications Given in the ED: ED Medications Discontinued Medications Generic Name Dose Route Start Last Admin Trade Name Freq PRN Reason Stop Dose Admin Hydromorphone HCl 0.5 mg 04/26/19 16:04 04/26/19 16:16 Dilaudid Injection - IVPUSH 04/26/19 16:05 0.5 mg ONCE ONE Administration Ertapenem 1 gm/ Sodium 50 mls @ 100 mls/hr 04/26/19 19:41 04/26/19 20:24 Chloride IVPB 04/26/19 20:10 100 mls/hr ONCE ONE Administration Lactated Ringer's 1,000 ml 04/26/19 19:41 04/26/19 20:24 Lactated Ringers Solution IV 04/26/19 19:42 1,000 ml ONCE ONE Administration <Ben Farah - Last Filed: 04/29/19 09:03> - LABORATORY CBC & Chemistry Diagram: 04/30/19 06:54 04/30/19 06:54 - ADDITIONAL ORDERS Additional order review: 04/26/19 16:00 Blood Culture - Preliminary Blood - Peripheral Venous NO GROWTH OBTAINED AFTER 72 HOURS, INCUBATION TO CONTINUE FOR 2 DAYS. 04/26/19 16:00 Blood Culture - Preliminary Blood - Peripheral Venous NO GROWTH OBTAINED AFTER 72 HOURS, INCUBATION TO CONTINUE FOR 2 DAYS. 04/26/19 16:00 RBC 3.85 MCV 86.2 MCHC 32.2 RDW 19.2 H MPV 7.0 L Neutrophils % 68.3 Lymphocytes % 21.3 Monocytes % 7.1 Eosinophils % 2.8 Basophils % 0.5 - Medications Given in the ED: ED Medications Discontinued Medications Generic Name Dose Route Start Last Admin Trade Name Freq PRN Reason Stop Dose Admin Hydromorphone HCl 0.5 mg 04/26/19 16:04 04/26/19 16:16 Dilaudid Injection - IVPUSH 04/26/19 16:05 0.5 mg ONCE ONE Administration Ertapenem 1 gm/ Sodium 50 mls @ 100 mls/hr 04/26/19 19:41 04/26/19 20:24 Chloride IVPB 04/26/19 20:10 100 mls/hr ONCE ONE Administration Sodium Chloride 1,000 mls @ 75 mls/hr 04/26/19 22:45 04/26/19 23:40 Normal Saline - IV 04/27/19 12:04 75 mls/hr ASDIR LYNN Administration Ertapenem 1 gm/ Sodium 50 mls @ 100 mls/hr 04/27/19 10:00 04/28/19 09:51 Chloride IVPB 100 mls/hr DAILY LYNN Administration Metronidazole 500 mg in 100 mls @ 100 mls/hr 04/26/19 23:00 04/28/19 14:52 Flagyl 500mg Premixed Ivpb - IVPB 100 mls/hr Q6H-IV LYNN Administration Lactated Ringer's 1,000 ml 04/26/19 19:41 04/26/19 20:24 Lactated Ringers Solution IV 04/26/19 19:42 1,000 ml ONCE ONE Administration <Dayami Gary - Last Filed: 04/30/19 11:55> Medical Decision Making - Medical Decision Making 04/26/19 20:33 Sign out received from Dr. Tejada. 79F with hx metastatic lung CA, recent admission for UTI sepsis, pericolonic abscess p/w one week of LUQ pain. Pending: CT Abdomen/Pelvis read Dispo: Likely admit --- CT notable for early diverticulitis, plan for ertapenem given recent abx, inpatient admission. --- Report given to inpatient team, admitted to Dr. Staton. <Ben Farah - Last Filed: 04/29/19 09:03> Discharge - Discharge Information Problems reviewed: Yes <Ben Farah - Last Filed: 04/29/19 09:03> - Admission Yes <Dayami Gary - Last Filed: 04/30/19 11:55> - Discharge Information Clinical Impression/Diagnosis: Acute diverticulitis Condition: Fair
--- NOTE | 2019-04-26 22:20 | HP ---
<Haile Lopez - Last Filed: 04/26/19 23:10> Seen and examined; please refer to resident note for further historical information. Agree with resident historical information and PE information aside from as documented by myself. Personally verified all historical information and yang physical exam findings . Recently discharged with diverticular abscess treated with ertapenem/flagyl by Dr. Cohen presenting back with sepsis. Very high risk for decompensation as immunosuppresessed 2/2 current chemo as metastatic lung adeno CA to bones. Recent cystitis. ESBL+ 2018. UA pending. 10 sys ROS done and negative aside from HPI PMH and PSH reviewed as per resident note FH asked and noncontributory; confirmed no sudden CV VS, labs, imaging reviewed NAD, AAO, resting in bed NC AT EOMI PERRLA Tachy slightly over 100 on my exam s1/2 no mgr Slightly tender ND +BS CN2-12 wnl, no fnd Normal mood, appropriate affect No breakdown or rashes noted Neck supple, trachea midline Normal muscle tone with no noted weakness All diagnostics and imaging reviewed; pending final CT read. Final CXR read noted. Preliminary CT shows: pleural based mass 4x3x3 seen previously 07/25/2018 alongside hepatic lesions concerning for hepatic disease. 1.3cm adrenal nodule ( R). No gallstones. Diverticulitis withyout obstruction or pneumoperitoneum with complex appearing soft tissue mass on left lower anterior pelvic wall read as abscess vs. necrotic met. Lytic lesion L1 with recs to FU MRI sacral spine ( will discuss with our radiologist before ordering). Thickened bladder mejia but could be 2/2 decompressed Old micro reviewed with new cultures pending EKG reviewed A/P: Patient presents with abdominal pain found to have likely recurring diverticulitis w/ possible abscess vs. necrotic met +/- UTI. Has had recurring abscess in past. Is septic with mild tachy and +WBC. She is high risk for worsening infection due to her underlying immunosuppressed state from cancer on chemotherapy. Problems include: -Sepsis (2/2 diverticulitis vs. urinary, followup culture and UA. Covering for ESBL, consulted ID) -Recurring diverticulitis with abscess (patient of Dr. Braswell; Dr. France for surgical eval. 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 Palliative to see) -Liver mets with elevated alk phos (GGT, RUQ US) -Thrombocytopenia (recurring, likely secondary to malignancy, chemo. Trend CBC) -Hx HLD (hold statin for now as NPO, resume when taking PO) -Hypoalbuminemia (Consult nutrition, check prealbumin) -R-adrenal nodule (mets vs. incidentaloma. Will defer to oncology) -Elevated alk phos (likely 2/2 mets) Full Code ATTENDING PHYSICIAN STATEMENT I saw and evaluated the patient. I reviewed the resident's note and discussed the case with the resident. I agree with the resident's findings and plan as documented. SUBJECTIVE: OBJECTIVE: ASSESSMENT AND PLAN: <Evelio Jones - Last Filed: 04/27/19 02:51> CHIEF COMPLAINT: LUQ pain HISTORY OF PRESENT ILLNESS: 79 year old, israeli-speaking female with a history of metastatic lung CA on keytruda and palliative radiation, hyperlipidemia, diabetes mellitus, SIADH, chronic abdominal pain and frequent UTIs presented to the hospital for 1 week of mid-epigastric/left sided abdominal pain that she reports has been progressively getting worse and states that it feels like a throbbing pain. Denied any associated nausea/vomiting, fevers or chills. Recently discharged on 04/11 following a hospitalization for UTI (E coli ESBL) and pericolic abscesses ( drained) and sent for 2 weeks of ertapenem through a PICC line. Currently reports her pain is slightly improved. Patient is followed by Dr. Kerr ER course was notable for: (1) CT abd/pelvis preliminary read showing early sigmoid diverticulitis and an anterior pelvic wall mass suspicious for malignancy or abscess (2) (3) Allergies: no known Surgeries: hysterectomy Smoker: former, unclear history from patient Alcohol use: none Drugs: none Family History: no family history of cancer, bleeding or clotting disorders elicited Allergies No Known Allergies Allergy (Verified 03/10/19 18:01) HOME MEDICATIONS: Home Medications Medication Instructions Recorded Rosuvastatin [Crestor -] 10 mg PO DAILY 07/25/18 Folic Acid - 1 mg PO DAILY #30 tablet 07/31/18 Ferrous Sulfate [Feosol] 325 mg PO DAILY #30 ud 02/06/19 FENTANYL 50mcg PATCH [DURAGESIC 50 1 patch TD Q72H #10 patch.td72 MDD 04/09/19 mcg PATCH -] 1 Polyethylene Glycol 3350 [Glycolax] 17 gm PO DAILY 04/26/19 REVIEW OF SYSTEMS CONSTITUTIONAL: generalized weakness Absent: fever, chills, diaphoresis, malaise, loss of appetite, weight change HEENT: Absent: rhinorrhea, nasal congestion, throat pain, throat swelling, difficulty swallowing, mouth swelling, ear pain, eye pain, visual changes CARDIOVASCULAR: Absent: chest pain, syncope, palpitations, irregular heart rate, lightheadedness , peripheral edema RESPIRATORY: Absent: cough, shortness of breath, dyspnea with exertion, orthopnea, wheezing, stridor, hemoptysis GASTROINTESTINAL: abdominal pain Absent: abdominal distension, nausea, vomiting, diarrhea, constipation, melena, hematochezia GENITOURINARY: Absent: dysuria, frequency, urgency, hesitancy, hematuria, flank pain, genital pain MUSCULOSKELETAL: Absent: myalgia, arthralgia, joint swelling, back pain, neck pain SKIN: Absent: rash, itching, pallor HEMATOLOGIC/IMMUNOLOGIC: Absent: easy bleeding, easy bruising, lymphadenopathy, frequent infections ENDOCRINE: Absent: unexplained weight gain, unexplained weight loss, heat intolerance, cold intolerance NEUROLOGIC: Absent: headache, focal weakness or paresthesias, dizziness, unsteady gait, seizure, mental status changes, bladder or bowel incontinence PSYCHIATRIC: Absent: anxiety, depression, suicidal or homicidal ideation, hallucinations. PHYSICAL EXAMINATION Vital Signs - 24 hr 04/26/19 04/26/19 04/26/19 14:52 18:38 20:42 Temperature 97.6 F 97.9 F 98.7 F Pulse Rate 79 Pulse Rate [ 84 91 H Apical] Respiratory 20 18 18 Rate Blood Pressure 132/70 Blood Pressure 133/66 153/78 [Left Arm] O2 Sat by Pulse 100 95 99 Oximetry (%) GENERAL: A&Ox3, no acute distress, skin appears warm EYES: PERRLA, EOMI ENT: Dry mucus membranes NECK: No JVD, no overt lymphadenopathy palpated LUNGS: CTA, no wheezes CHEST: R sided port noted without signs of infection HEART: RRR, no murmurs ABDOMEN: mass in suprapubic region, tenderness in epigastrum, BS present MUSCULOSKELETAL: No CVA Tenderness EXTREMITIES: 2+ pulses, no edema. NEUROLOGICAL: Cranial nerves II-XII intact. No focal deficits Laboratory Results - last 24 hr 04/26/19 04/26/19 04/26/19 16:00 16:00 16:00 WBC 13.0 H RBC 3.85 Hgb 10.7 Hct 33.2 D MCV 86.2 MCH 27.7 MCHC 32.2 RDW 19.2 H Plt Count 483 H MPV 7.0 L Absolute Neuts (auto) 8.9 H Neutrophils % 68.3 Lymphocytes % 21.3 Monocytes % 7.1 Eosinophils % 2.8 Basophils % 0.5 Nucleated RBC % 0 Sodium 138 Potassium 3.9 Chloride 100 Carbon Dioxide 30 Anion Gap 8 BUN 4.3 L Creatinine 0.3 L Est GFR (CKD-EPI)AfAm 128.00 Est GFR (CKD-EPI)NonAf 110.44 Random Glucose 84 Lactic Acid Calcium 8.4 L Total Bilirubin 0.3 AST 27 ALT 13 Alkaline Phosphatase 145 H Creatine Kinase 16 L Troponin I < 0.02 Total Protein 7.0 Albumin 2.2 L Lipase 46 L 04/26/19 16:00 WBC RBC Hgb Hct MCV MCH MCHC RDW Plt Count MPV Absolute Neuts (auto) Neutrophils % Lymphocytes % Monocytes % Eosinophils % Basophils % Nucleated RBC % Sodium Potassium Chloride Carbon Dioxide Anion Gap BUN Creatinine Est GFR (CKD-EPI)AfAm Est GFR (CKD-EPI)NonAf Random Glucose Lactic Acid 1.1 Calcium Total Bilirubin AST ALT Alkaline Phosphatase Creatine Kinase Troponin I Total Protein Albumin Lipase ASSESSMENT/PLAN: 79 year old, israeli-speaking female with a history of metastatic lung CA on keytruda and palliative radiation, hyperlipidemia, diabetes mellitus, SIADH, chronic abdominal pain and frequent UTIs admitted for abdominal pain secondary to sigmoid diverticulitis with possible abscess/metastatic lesion and UTI #Sepsis 2/2 Diverticulitis vs UTI: unclear etiology at this time; patient had multiple episodes of cystitis in the past significant for ESBL in the urine -IVF with NS @ 75cc/hr -starting ertapenem/flagyl -blood/urine cultures -urinalysis ordered -lipase ordered -tylenol/fentanyl patch for pain -CT prelim read: early sigmoid diverticulitis, complex soft tissue mass L lower anterior pelvic wall possible necrotic neoplasm vs abscess; multiple hepatic nodules, lytic lesion in S1; severe spinal stenosis L3-L5 -surgery consulted for evaluation of abscesses -ID consulted -heme/onc consulted #Spinal Stenosis: seen on CT prelim read, could be on basis of neoplastic disease -neurosurg evaluation -may benefit from evaluation by radiation oncology #Metastatic Adenocarcinoma of Lung -heme onc consulted -iron supplementation for anemia #Hypoalbuminemia: likely multifactorial, malnutrition/malignancy #Diabetes Mellitus: chronic, sugars are normal -not on home diabetic medications -BGM -ISS in case patient becomes hyperglycemic #FEN -gentle hydration #Prophylaxis -SCDs #Disposition -admit med surg Visit type - Emergency Visit Emergency Visit: Yes ED Registration Date: 04/26/19 Care time: The patient presented to the Emergency Department on the above date and was hospitalized for further evaluation of their emergent condition. - New Patient This patient is new to me today: Yes Date on this admission: 04/27/19 - Critical Care Critical Care patient: No ATTENDING PHYSICIAN STATEMENT I saw and evaluated the patient. I reviewed the resident's note and discussed the case with the resident. I agree with the resident's findings and plan as documented. SUBJECTIVE: OBJECTIVE: ASSESSMENT AND PLAN:
[2019-04-26] MEDS ORDERED: SODIUM CHLORIDE 1,000 ML IV SCH (22:45)
[2019-04-26] MEDS ORDERED: FENTANYL PATCH WASTE TD PRN (22:56)
[2019-04-26] MEDS: ACETAMINOPHEN 325 MG TABLET (FP) PO PRN (23:24)
[2019-04-26] MEDS: fentaNYL 50mcg/hr PATCH.TD72 TD SCH (23:25)
[2019-04-27] MEDS: INSULIN SLIDING SCALE (NOVOLOG) 1 VIAL SQ SCH ×4 (06:14→22:09)
[2019-04-27 08:06] LABS: HEMATOCRIT 29.3 % (32.4-45.2); HEMOGLOBIN 9.5 GM/dL (10.7-15.3); MCH 27.6 pg (25.7-33.7); MCHC 32.4 g/dl (32.0-36.0); MEAN CELL VOLUME 85.3 fl (80-96); MEAN PLT VOLUME 7.1 fl (7.5-11.1); PLATELET COUNT 418 K/MM3 (134-434); RBC 3.44 M/mm3 (3.60-5.2); WHITE BLOOD COUNT 12.4 K/mm3 (4.0-10.0)
[2019-04-27] MEDS: FERROUS SO4 325 MG TABLET (FP) PO SCH (09:29)
[2019-04-27] MEDS: FOLIC ACID 1 MG TABLET (FP) PO SCH (09:29)
[2019-04-27] MEDS: HEPARIN NA (PORCINE) 5,000 UNITS/ML 1ML VIAL SQ SCH ×2 (09:35→21:56)
[2019-04-27 09:58] LABS: ALBUMIN 2.2 g/dl (3.4-5.0); BILIRUBIN,TOTAL 0.2 mg/dL (0.2-1); CALCIUM 8.2 mg/dL (8.5-10.1); CREATININE 0.3 mg/dL (0.55-1.3); POTASSIUM 3.8 mmol/L (3.5-5.1); PREALBUMIN 6.3 mg/dl (20-40); TOT PROT 6.8 g/dl (6.4-8.2)
[2019-04-27] MEDS ORDERED: ENOXAPARIN NA (PORCINE) 40 MG/0.4 ML DISP.SYRIN SQ SCH (10:00)
[2019-04-27] MEDS ORDERED: POLYETHYLENE GLYCOL 3350 255 GM BTL PO SCH (10:00)
[2019-04-27] MEDS ORDERED: ROSUVASTATIN CA 10 MG TABLET (FP) PO SCH (10:00)
[2019-04-27] MEDS: ERTAPENEM SODIUM 1 GM in SODIUM CHLORIDE 50 ML IVPB SCH (10:00)
[2019-04-27 10:03] LABS: BLOOD UREA NITROGEN 2.9 mg/dL (7-18)
--- NOTE | 2019-04-27 10:44 | CON.GI ---
Consult Consult Specialty:: GI Referred by:: Hospitalist service Reason for Consultation:: Abdominal pain - History of Present Illness Chief Complaint: Abdominal pain History of Present Illness: 79 y.o. F with metastatic lung ca, on chemotherapy, recently treated for diverticulitis with abscess. Transferred back to hospital with increased pain, largely epigastric and LUQ; elevated WBC. CBC,CMP WBC 12.4 K/mm3 (4.0-10.0) H 04/27/19 06:35 RBC 3.44 M/mm3 (3.60-5.2) L 04/27/19 06:35 Hgb 9.5 GM/dL (10.7-15.3) L 04/27/19 06:35 Hct 29.3 % (32.4-45.2) L 04/27/19 06:35 MCV 85.3 fl (80-96) 04/27/19 06:35 MCH 27.6 pg (25.7-33.7) 04/27/19 06:35 MCHC 32.4 g/dl (32.0-36.0) 04/27/19 06:35 RDW 19.0 % (11.6-15.6) H 04/27/19 06:35 Plt Count 418 K/MM3 (134-434) 04/27/19 06:35 MPV 7.1 fl (7.5-11.1) L 04/27/19 06:35 Absolute Neuts (auto) 8.9 K/mm3 (1.5-8.0) H 04/26/19 16:00 Neutrophils % 68.3 % (42.8-82.8) 04/26/19 16:00 Lymphocytes % 21.3 % (8-40) 04/26/19 16:00 Monocytes % 7.1 % (3.8-10.2) 04/26/19 16:00 Eosinophils % 2.8 % (0-4.5) 04/26/19 16:00 Basophils % 0.5 % (0-2.0) 04/26/19 16:00 Nucleated RBC % 0 % (0-0) 04/26/19 16:00 ESR 84 mm/hr (0-30) H 04/27/19 05:40 Sodium 138 mmol/L (136-145) 04/27/19 08:40 Potassium 3.8 mmol/L (3.5-5.1) 04/27/19 08:40 Chloride 104 mmol/L (98-107) 04/27/19 08:40 Carbon Dioxide 29 mmol/L (21-32) 04/27/19 08:40 Anion Gap 5 MMOL/L (8-16) L 04/27/19 08:40 BUN 2.9 mg/dL (7-18) L* 04/27/19 08:40 Creatinine 0.3 mg/dL (0.55-1.3) L 04/27/19 08:40 Est GFR (CKD-EPI)AfAm 128.00 04/27/19 08:40 Est GFR (CKD-EPI)NonAf 110.44 04/27/19 08:40 POC Glucometer 83 UNITS (80-120) 04/27/19 06:00 Random Glucose 85 mg/dL (74-106) 04/27/19 08:40 Lactic Acid 1.1 mmol/L (0.4-2.0) 04/26/19 16:00 Calcium 8.2 mg/dL (8.5-10.1) L 04/27/19 08:40 Magnesium 2.0 mg/dL (1.8-2.4) 04/27/19 08:40 Total Bilirubin 0.2 mg/dL (0.2-1) 04/27/19 08:40 GGT 66 U/L (5-85) 04/27/19 08:40 AST 19 U/L (15-37) 04/27/19 08:40 ALT 10 U/L (13-61) L 04/27/19 08:40 Alkaline Phosphatase 135 U/L (45-117) H 04/27/19 08:40 Creatine Kinase 16 U/L (26-192) L 04/26/19 16:00 Troponin I < 0.02 ng/ml (0.00-0.05) 04/26/19 16:00 C-Reactive Protein 8.8 MG/DL (0.00-0.3) H 04/27/19 08:40 Total Protein 6.8 g/dl (6.4-8.2) 04/27/19 08:40 Albumin 2.2 g/dl (3.4-5.0) L 04/27/19 08:40 Prealbumin 6.3 mg/dl (20-40) L 04/27/19 08:40 Lipase 37 U/L (73-393) L 04/27/19 06:35 Vitamin B12 1754 pg/ml (193-986) H 04/27/19 08:40 Serum Folate 20 ng/mL (3.1-17.5) H 04/27/19 08:40 - History Source History Provided By: Patient, Medical Record Limitations to Obtaining History: Language Barrier - Past Medical History Cardio/Vascular: Yes: Hyperlipdemia Pulmonary: Yes: Cancer (Metastatic adenocarcinoma dx'ed 08/10) Gastrointestinal: Yes: Diverticulitis Renal/: Yes: UTI Musculoskeletal: Yes: Other (Bony Metastases (s/p RT)) Endocrine: Yes: Diabetes Mellitus, SIADH - Alcohol/Substance Use Hx Alcohol Use: No - Smoking History Smoking history: Never smoked Have you smoked in the past 12 months: No If you are a former smoker, when did you quit?: 3 yrs ago Home Medications - Allergies Allergies/Adverse Reactions: Allergies Allergy/AdvReac Type Severity Reaction Status Date / Time No Known Allergies Allergy Verified 03/10/19 18:01 - Home Medications Home Medications: Ambulatory Orders Rosuvastatin [Crestor -] 10 mg PO DAILY 07/25/18 Folic Acid - 1 mg PO DAILY #30 tablet 07/31/18 Ferrous Sulfate [Feosol] 325 mg PO DAILY #30 ud 02/06/19 FENTANYL 50mcg PATCH [DURAGESIC 50 mcg PATCH -] 1 patch TD Q72H #10 patch.td72 MDD 1 04/09/19 Polyethylene Glycol 3350 [Glycolax] 17 gm PO DAILY 04/26/19 Physical Exam-GI Vital Signs: Vital Signs Temperature 98.0 F 04/27/19 08:42 Pulse Rate 89 04/27/19 08:42 Respiratory Rate 16 04/27/19 08:42 Blood Pressure 107/67 04/27/19 08:42 O2 Sat by Pulse Oximetry (%) 98 04/27/19 01:15 Constitutional: Yes: Thin Gastrointestinal Inspection: Yes: WNL ...Auscultate: Yes: Normoactive Bowel Sounds ...Palpate: Yes: Other (Mass palpable in LLQ, appears about 4-5 cm diameter, hard, not tender. Upper abdomen soft.) ...Rectal Exam: Yes: Deferred Labs: CBC, BMP 04/27/19 06:35 04/27/19 08:40 Imaging - Results Cat Scan: Image Reviewed (Probable liver metastases; peritoneal mass; abscess vs necrotic mass abutting sigmoid colon.) Problem List - Problems (1) Abdominal pain Code(s): R10.9 - UNSPECIFIED ABDOMINAL PAIN Assessment/Plan Location of her pain does not correspond to the areas of abnormality seen on CT. Nevertheless the abscess/necrotic material abutting the sigmoid does not appear (to me) to be resolving as expected. It is possible this is not diverticulitis but a necrotic metastasis, but I would defer to the radiologist' s interpretation. If there is no rapid response to antibiotics it may need percutaneous drainage.
--- NOTE | 2019-04-27 11:40 | EKG ---
Test Reason : Blood Pressure : / mmHG Vent. Rate : 087 BPM Atrial Rate : 087 BPM P-R Int : 136 ms QRS Dur : 072 ms QT Int : 386 ms P-R-T Axes : 040 013 040 degrees QTc Int : 464 ms NORMAL SINUS RHYTHM CANNOT RULE OUT ANTERIOR INFARCT , AGE UNDETERMINED ABNORMAL ECG WHEN COMPARED WITH ECG OF 25-MAR-2019 17:01, NO SIGNIFICANT CHANGE WAS FOUND Confirmed by SANDRO CLIFFORD MD ([id number]) on 04/27/2019 11:40:19 AM Referred By: Confirmed By:SANDRO CLIFFORD MD
--- NOTE | 2019-04-27 11:49 | PN ---
Progress Note (short form) - Note Progress Note: ID consult dictated imp/reccd 79 yo femal history of metastatic lung cancer on keytruda she had a complicated admission in March- admitted with fever and found to have proctocolitis and multiple abscesses that could not be drained she has a known mass in her left lower abdominal wall as well as bony mets she was discharged to CT on ertapenem and po falgyl for 2 weeks now admitted with LUQ pain no fevers ct scan results are pending she has been restarted on iv antibiotics will review ct scan and d/w GI Problem List - Problems (1) Abdominal pain Code(s): R10.9 - UNSPECIFIED ABDOMINAL PAIN (2) Abdominal fluid collection Code(s): R18.8 - OTHER ASCITES (3) Metastatic lung cancer (metastasis from lung to other site) Code(s): C34.90 - MALIGNANT NEOPLASM OF UNSP PART OF UNSP BRONCHUS OR LUNG Qualifiers: Laterality: left Qualified Code(s): C34.92 - Malignant neoplasm of unspecified part of left bronchus or lung
--- NOTE | 2019-04-27 12:08 | PN ---
Progress Note, Physician Chief Complaint: Abdominal pain History of Present Illness: NAD c/o of abd pain CT abd/pel reviewed - Current Medication List Current Medications: Active Medications Acetaminophen (Tylenol -) 650 mg PO Q4H PRN PRN Reason: PAIN LEVEL 6-10 Last Admin: 04/26/19 23:24 Dose: 650 mg Fentanyl (Duragesic 50mcg Patch -) 1 patch TD Q72H [facility] Last Admin: 04/26/19 23:25 Dose: 1 patch Ferrous Sulfate (Feosol -) 325 mg PO DAILY [facility] Last Admin: 04/27/19 09:29 Dose: Not Given Folic Acid (Folic Acid -) 1 mg PO DAILY [facility] Last Admin: 04/27/19 09:29 Dose: Not Given Heparin Sodium (Porcine) (Heparin -) 5,000 unit SQ BID [facility] Last Admin: 04/27/19 09:35 Dose: 5,000 unit Ertapenem 1 gm/ Sodium (Chloride) 50 mls @ 100 mls/hr IVPB DAILY [facility] Last Admin: 04/27/19 10:00 Dose: 100 mls/hr Metronidazole (Flagyl 500mg Premixed Ivpb -) 500 mg in 100 mls @ 100 mls/hr IVPB Q6H-IV [facility] Last Admin: 04/27/19 09:36 Dose: 100 mls/hr Insulin Aspart (Novolog Vial Sliding Scale -) 1 vial SQ ACHS [facility]; Protocol Last Admin: 04/27/19 11:11 Dose: Not Given Miscellaneous (Duragesic Patch Waste) 1 each TD PRN PRN PRN Reason: PATCH REMOVAL - Objective Vital Signs: Vital Signs Temperature 98.0 F 04/27/19 08:42 Pulse Rate 89 04/27/19 08:42 Respiratory Rate 16 04/27/19 08:42 Blood Pressure 107/67 04/27/19 08:42 O2 Sat by Pulse Oximetry (%) 98 04/27/19 09:00 Constitutional: Yes: No Distress, Calm, Cachectic Cardiovascular: Yes: Regular Rate and Rhythm Respiratory: Yes: Regular Gastrointestinal: Yes: Soft, Hypoactive Bowel Sounds, Tenderness, Epigastrium Genitourinary: Yes: WNL Musculoskeletal: Yes: Muscle Weakness Edema: No Peripheral Pulses WNL: Yes Neurological: Yes: Alert, Oriented Psychiatric: Yes: Alert, Oriented Labs: CBC, BMP 04/27/19 06:35 04/27/19 08:40 Assessment/Plan (1) Abdominal pain Assessment/Plan: -GI on board -CT abd/pelvis shows: Right lung base consolidation/pneumonia, posteriorly. Cannot rule out underlying pathology/mass. Interval suggestion of a couple of low-attenuation lesions in the liver is suspicious for metastasis. Correlation with MRI of the abdomen is needed since it was not demonstrated on the upper abdomen ultrasound dated 04/27/2019. Residual thickening of the sigmoid colon wall with evidence of diverticulosis. Residual tiny extraluminal air pockets posterior to the mid sigmoid colon and questionable residual small collection inseparable from the proximal sigmoid colon wall. Essentially stable is size previously visualized low attenuation masslike density in the left lower anterior pelvic wall. Lytic lesion again seen in the S1 vertebral body with the Hologic minimal compression/cortical fracture involving superior endplate. -pain control -Flagyl -repeat CT scan reviewed, abscess improved -Pain is more Epigastric -Add PPI BID -Keep NPO for now -New lung pathology-metastatic disease? Code(s): R10.9 - UNSPECIFIED ABDOMINAL PAIN (2) Diabetes Assessment/Plan: -Diabetic diet -ISS -BGM ACHS -Last A1c at 6.9 in 01/2019 -Recheck A1c Code(s): E11.9 - TYPE 2 DIABETES MELLITUS WITHOUT COMPLICATIONS (3) Metastatic lung cancer (metastasis from lung to other site) Assessment/Plan: -Oncology on board -palliative consult -On Fentanyl patch Code(s): C34.90 - MALIGNANT NEOPLASM OF UNSP PART OF UNSP BRONCHUS OR LUNG Qualifiers: Laterality: left Qualified Code(s): C34.92 - Malignant neoplasm of unspecified part of left bronchus or lung (4) Anemia Assessment/Plan: -improved -monitor Hg -transfuse for Hg <7.0 Code(s): D64.9 - ANEMIA, UNSPECIFIED
[2019-04-27 14:53] VITALS: BMI 20.3
[2019-04-27] MEDS: PANTOPRAZOLE SODIUM 40 MG VIAL IVPUSH SCH ×2 (15:07→22:10)
--- NOTE | 2019-04-27 18:27 | CONSULT ---
Consult Consult Specialty:: Medical Oncology - History of Present Illness Chief Complaint: Abdominal pain. Lung CA History of Present Illness: 79 y/o lady from [place] facility hx of metastatic Lung Ca on Keytruda, NIDDM , diverticulitis with pericolonic abcess presented to the ER with 1 week of LUQ pain. The pain has been constant throbbing pain in her LUQ radiating to her back. Pain has been temporarily relieved by pain medications at the facility but always returns eventually. She has been nauseous but has had no episodes of vomiting.She was recently discharged from the hospital on 04/11/2019 where she was treated for UTI and pericolonic abscess. She denies any fevers, chills, diarrhea, dark stools, chest pain. She reports her last chemotherapy treatment was 2-3 weeks ago. Her only complaint during my visit 04/27 was abdominal pain but not chest pain, no SOB, no other complaints - History Source History Provided By: Patient Limitations to Obtaining History: No Limitations - Past Medical History Cardio/Vascular: Yes: Hyperlipdemia Pulmonary: Yes: Cancer (Metastatic adenocarcinoma dx'ed 08/10) Gastrointestinal: Yes: Diverticulitis Renal/: Yes: UTI Musculoskeletal: Yes: Other (Bony Metastases (s/p RT)) Endocrine: Yes: Diabetes Mellitus, SIADH - Alcohol/Substance Use Hx Alcohol Use: No - Smoking History Smoking history: Never smoked Have you smoked in the past 12 months: No If you are a former smoker, when did you quit?: 3 yrs ago Home Medications - Allergies Allergies/Adverse Reactions: Allergies Allergy/AdvReac Type Severity Reaction Status Date / Time No Known Allergies Allergy Verified 03/10/19 18:01 - Home Medications Home Medications: Ambulatory Orders Rosuvastatin [Crestor -] 10 mg PO DAILY 07/25/18 Folic Acid - 1 mg PO DAILY #30 tablet 07/31/18 Ferrous Sulfate [Feosol] 325 mg PO DAILY #30 ud 02/06/19 FENTANYL 50mcg PATCH [DURAGESIC 50 mcg PATCH -] 1 patch TD Q72H #10 patch.td72 MDD 1 04/09/19 Polyethylene Glycol 3350 [Glycolax] 17 gm PO DAILY 04/26/19 Review of Systems - Review of Systems Constitutional: reports: No Symptoms Eyes: reports: No Symptoms HENT: reports: No Symptoms Gastrointestinal: reports: Abdominal Pain (Lower quadrants. Left and Right) Genitourinary: reports: No Symptoms Breasts: reports: No Symptoms Reported Musculoskeletal: reports: No Symptoms Integumentary: reports: No Symptoms Neurological: reports: No Symptoms Endocrine: reports: No Symptoms Hematology/Lymphatic: reports: No Symptoms Psychiatric: reports: No Symptoms Physical Exam Vital Signs: Vital Signs Temperature 98.5 F 04/27/19 15:08 Pulse Rate 82 04/27/19 15:08 Respiratory Rate 16 04/27/19 15:08 Blood Pressure 115/64 04/27/19 15:08 O2 Sat by Pulse Oximetry (%) 98 04/27/19 09:00 Constitutional: Yes: Well Nourished, No Distress, Calm Eyes: Yes: WNL, Conjunctiva Clear, EOM Intact HENT: Yes: WNL Neck: Yes: WNL, Supple, Trachea Midline, Tenderness Cardiovascular: Yes: WNL, Regular Rate and Rhythm Respiratory: Yes: Regular, CTA Bilaterally Gastrointestinal: Yes: Tenderness (Tender to touch lower quadrants) Renal/: Yes: WNL Breast(s): Yes: WNL Musculoskeletal: Yes: WNL Extremities: Yes: WNL Labs: CBC, BMP 04/27/19 06:35 04/27/19 08:40 Assessment/Plan 79 y/o lady admitted with abdominal pain, recently discharged for diverticulitis. Oncology consulted given history of Stage IV Lung Cancer. Recommend: 1. Abdominal Pain. Agree with antibiotic therapy and GI assessment. 2. Stage IV Lung Cancer/on immunotherapy: Imaging reviewed. MRI abdomen can further delineate nature of liver lesions. Radiologist to comment on whether prior diverticulitis finding may correspond to necrotic metastasis. Upon resolution of acute pathology will be re-evaluated by Dr. Kerr to resume treatment. 3. Normocytic normochromic anemia, likely anemia of chronic disease ( inflammatory). Further investigations and characterization after resolution of acute condition. 4. Thank you for this consultation
--- NOTE | 2019-04-27 20:12 | CONSULT ---
Consult - text type - Consultation Consultation Note: NEUROSURGERY CONSULTATION Micheline Glez is a 79 year old female with metastatic Lung Cancer and multiple medical consequences including an intra-abdominal abscess which has been challenging to treat. The patient has been complaining of abdominal pain and was recently re-admitted from [place] for further evaluation. CT Abdomen reveals a large lytic lesion at S1 which is presumably a metastatic focus. The patient has been complaining of increasing back pain which is aggravated by standing, bearing weight and especially with ambulation. The patient is relatively more comfortable while recumbent. Case discussed with patient and family. Initial treatment with abdominal binder for stabilization may be appropriate. If patient is medically stable and cannot achieve adequate relief with bracing, may consider minimally invasive stabilization of spinopelvic junction. - Abdominal binder for comfort - Physical Therapy - GI/DVT prophylaxis - Will discuss patient's medical condition with team and determine whether additional stabilization is indicated.
[2019-04-27] MEDS: ACETAMINOPHEN 325 MG TABLET (FP) PO PRN (21:56)
[2019-04-27] MEDS: SODIUM CHLORIDE 1,000 ML IV SCH (22:30)
[2019-04-28] MEDS: INSULIN SLIDING SCALE (NOVOLOG) 1 VIAL SQ SCH ×4 (06:39→22:35)
[2019-04-28 08:45] LABS: BASO % 1.2 % (0-2.0); EOS % 4.3 % (0-4.5); HEMATOCRIT 31.8 % (32.4-45.2); HEMOGLOBIN 10.4 GM/dL (10.7-15.3); LYMPH % 18.1 % (8-40); MCH 28.1 pg (25.7-33.7); MCHC 32.6 g/dl (32.0-36.0); MEAN CELL VOLUME 86.1 fl (80-96); MEAN PLT VOLUME 7.2 fl (7.5-11.1); NEUT % 70.4 % (42.8-82.8); PLATELET COUNT 476 K/MM3 (134-434); RBC 3.69 M/mm3 (3.60-5.2); RDW 19.4 % (11.6-15.6); WHITE BLOOD COUNT 14.4 K/mm3 (4.0-10.0)
--- NOTE | 2019-04-28 08:47 | PN.GI ---
GI Progress Note Subjective: Patient states her epigastric pain is improving slightly, denies nausea, vomiting. Denies diarrhea or constipation. - Objective Vital Signs: Vital Signs Temperature 99.4 F 04/28/19 06:00 Pulse Rate 71 04/28/19 06:00 Respiratory Rate 20 04/28/19 06:00 Blood Pressure 105/43 L 04/28/19 06:00 O2 Sat by Pulse Oximetry (%) 98 04/27/19 21:00 Constitutional: No Distress, Calm Eyes: Yes: Conjunctiva Clear HENT: Yes: Atraumatic Cardiovascular: Yes: Regular Rate and Rhythm Respiratory: Yes: Regular, CTA Bilaterally Gastrointestinal Inspection: Yes: WNL. No: Ascites, Distention, Hernia, Scars, Other ...Auscultate: Yes: Normoactive Bowel Sounds. No: Hyperactive Bowel Sounds, Hypoactive Bowel Sounds, No Bowel Sounds, Other ...Palpate: Yes: Soft, Tenderness (diffuse), Tenderness, Epigastium ...Percussion: Yes: Tympanitic. No: Dullness, Fluid Wave, Other Neurological: Yes: Alert Psychiatric: Yes: Alert Labs: Active Medications Generic Name Dose Route Start Last Admin Trade Name Freq PRN Reason Stop Dose Admin Acetaminophen 650 mg 04/26/19 22:41 04/27/19 21:56 Tylenol - PO 650 mg Q4H PRN Administration PAIN LEVEL 6-10 Fentanyl 1 patch 04/26/19 22:45 04/26/19 23:25 Duragesic 50mcg Patch - TD 1 patch Q72H LYNN Administration Ferrous Sulfate 325 mg 04/27/19 10:00 04/27/19 09:29 Feosol - PO Not Given DAILY LYNN Folic Acid 1 mg 04/27/19 10:00 04/27/19 09:29 Folic Acid - PO Not Given DAILY [facility] Heparin Sodium (Porcine) 5,000 unit 04/27/19 10:00 04/27/19 21:56 Heparin - SQ 5,000 unit BID LYNN Administration Ertapenem 1 gm/ Sodium 50 mls @ 100 mls/hr 04/27/19 10:00 04/27/19 10:00 Chloride IVPB 100 mls/hr DAILY LYNN Administration Metronidazole 500 mg in 100 mls @ 100 mls/hr 04/26/19 23:00 04/28/19 02:04 Flagyl 500mg Premixed Ivpb - IVPB 100 mls/hr Q6H-IV LYNN Administration Sodium Chloride 1,000 mls @ 75 mls/hr 04/27/19 22:30 04/27/19 22:30 Normal Saline - IV 75 mls/hr ASDIR LYNN Administration Insulin Aspart 1 vial 04/27/19 07:00 04/28/19 06:39 Novolog Vial Sliding Scale - SQ Not Given ACHS LYNN Protocol Miscellaneous 1 each 04/26/19 22:56 Duragesic Patch Waste TD PRN PRN PATCH REMOVAL Pantoprazole Sodium 40 mg 04/27/19 14:57 04/27/19 22:10 Protonix Iv IVPUSH 40 mg BID LYNN Administration Problem List - Problems (1) Abdominal pain Assessment/Plan: most likely secondary to metastatic pancreatic cancer >Abd/Pelvic CT scan reviewed >continue with Pantoprazole BID >IV hydration >will advance diet to clear liquids and see if tolerated Code(s): R10.9 - UNSPECIFIED ABDOMINAL PAIN
--- NOTE | 2019-04-28 09:08 | CONSULT ---
- Consultation REQUESTING PROVIDER: Sheri SCHUMACHER CONSULT REQUEST: We have been asked to surgically evaluate this patient for abdominal pain. PCP:Cesar Wade HISTORY OF PRESENT ILLNESS: 79 y/o female w/known metastatic lung carcinoma recently txed for diverticulitis presents w/ ? recurrent abdominal pain ? PMHx: netastatic lung carcinoma off immunotx. PSHx: ? Home Medications Medication Instructions Recorded Rosuvastatin [Crestor -] 10 mg PO DAILY 07/25/18 Folic Acid - 1 mg PO DAILY #30 tablet 07/31/18 Ferrous Sulfate [Feosol] 325 mg PO DAILY #30 ud 02/06/19 FENTANYL 50mcg PATCH [DURAGESIC 50 1 patch TD Q72H #10 patch.td72 MDD 04/09/19 mcg PATCH -] 1 Polyethylene Glycol 3350 [Glycolax] 17 gm PO DAILY 04/26/19 Allergies Allergy/AdvReac Type Severity Reaction Status Date / Time No Known Allergies Allergy Verified 03/10/19 18:01 PHYSICAL EXAM: GENERAL: Awake, alert, and fully oriented, in no acute distress. HEAD: Normal with no signs of trauma. EYES: sclera anicteric, conjunctiva clear. NECK: Normal ROM, supple without lymphadenopathy, JVD, or masses. ABDOMEN: Soft, tender LLQ w/mass, not distended, normoactive bowel sounds, no guarding, no rebound, no masses. No organomegaly. No hernias. MUSCULOSKELETAL: Normal ROM at all joints. No bony deformities or tenderness. No CVA tenderness. UPPER EXTREMITIES: 2+ pulses, warm, well-perfused. No cyanosis. Cap refill <2 seconds. No peripheral edema. LOWER EXTREMITIES: 2+ pulses, warm, well-perfused. No calf tenderness. No peripheral edema. NEUROLOGICAL: Normal speech, gait not observed. PSYCH: Cooperative. Good eye contact. Appropriate mood and affect. SKIN: Warm, dry, normal turgor, no rashes or lesions noted. Vital Signs Temperature 99.4 F 04/28/19 06:00 Pulse Rate 71 04/28/19 06:00 Respiratory Rate 20 04/28/19 06:00 Blood Pressure 105/43 L 04/28/19 06:00 O2 Sat by Pulse Oximetry (%) 98 04/27/19 21:00 Lab Results WBC 14.4 K/mm3 (4.0-10.0) H 04/28/19 07:25 RBC 3.69 M/mm3 (3.60-5.2) 04/28/19 07:25 Hgb 10.4 GM/dL (10.7-15.3) L 04/28/19 07:25 Hct 31.8 % (32.4-45.2) L 04/28/19 07:25 MCV 86.1 fl (80-96) 04/28/19 07:25 MCHC 32.6 g/dl (32.0-36.0) 04/28/19 07:25 RDW 19.4 % (11.6-15.6) H 04/28/19 07:25 Plt Count 476 K/MM3 (134-434) H 04/28/19 07:25 Sodium 138 mmol/L (136-145) 04/27/19 08:40 Potassium 3.8 mmol/L (3.5-5.1) 04/27/19 08:40 Chloride 104 mmol/L (98-107) 04/27/19 08:40 Carbon Dioxide 29 mmol/L (21-32) 04/27/19 08:40 Anion Gap 5 MMOL/L (8-16) L 04/27/19 08:40 BUN 2.9 mg/dL (7-18) L* 04/27/19 08:40 Creatinine 0.3 mg/dL (0.55-1.3) L 04/27/19 08:40 Random Glucose 85 mg/dL (74-106) 04/27/19 08:40 Calcium 8.2 mg/dL (8.5-10.1) L 04/27/19 08:40 Imaging w/u reviewed IMP: no evidence of an acute surgical abdomen; doubt recurrent diverticulitis; more likely metastatic tumor w/necosis and abscess. PLAN: Continue present w/u; reconsult as needed; no need for genera surgery intervention at this time. Ghassan France MD FACS
[2019-04-28 09:15] LABS: BILIRUBIN,TOTAL 0.4 mg/dL (0.2-1); BLOOD UREA NITROGEN 3.7 mg/dL (7-18); CALCIUM 7.9 mg/dL (8.5-10.1); CREATININE 0.3 mg/dL (0.55-1.3); POTASSIUM 3.8 mmol/L (3.5-5.1); TOT PROT 6.4 g/dl (6.4-8.2)
[2019-04-28] MEDS ORDERED: PT OWN MED DRAWER 7, Y5N ONE (09:15)
[2019-04-28] MEDS: HEPARIN NA (PORCINE) 5,000 UNITS/ML 1ML VIAL SQ SCH ×2 (09:51→22:00)
[2019-04-28] MEDS: PANTOPRAZOLE SODIUM 40 MG VIAL IVPUSH SCH ×2 (09:51→22:01)
[2019-04-28] MEDS: ERTAPENEM SODIUM 1 GM in SODIUM CHLORIDE 50 ML IVPB SCH (09:51)
[2019-04-28] MEDS: FERROUS SO4 325 MG TABLET (FP) PO SCH (09:52)
[2019-04-28] MEDS: FOLIC ACID 1 MG TABLET (FP) PO SCH (09:52)
[2019-04-28] MEDS: ACETAMINOPHEN 325 MG TABLET (FP) PO PRN (11:47)
--- NOTE | 2019-04-28 14:13 | PN ---
Progress Note (short form) - Note Progress Note: Patient sleeping comfortably. Determination of potential role of spinopelvic stabilization will have to await medical optimization and control of active infections. I remain available to discuss this case and the potential palliative options I can offer.
--- NOTE | 2019-04-28 15:04 | PN ---
Progress Note, Physician Chief Complaint: patient seen and examined just came back from IR - Current Medication List Current Medications: Active Medications Acetaminophen (Tylenol -) 650 mg PO Q4H PRN PRN Reason: PAIN LEVEL 6-10 Last Admin: 04/28/19 11:47 Dose: 650 mg Fentanyl (Duragesic 50mcg Patch -) 1 patch TD Q72H [facility] Last Admin: 04/26/19 23:25 Dose: 1 patch Ferrous Sulfate (Feosol -) 325 mg PO DAILY [facility] Last Admin: 04/28/19 09:52 Dose: 325 mg Folic Acid (Folic Acid -) 1 mg PO DAILY [facility] Last Admin: 04/28/19 09:52 Dose: 1 mg Heparin Sodium (Porcine) (Heparin -) 5,000 unit SQ BID [facility] Last Admin: 04/28/19 09:51 Dose: 5,000 unit Ertapenem 1 gm/ Sodium (Chloride) 50 mls @ 100 mls/hr IVPB DAILY [facility] Last Admin: 04/28/19 09:51 Dose: 100 mls/hr Metronidazole (Flagyl 500mg Premixed Ivpb -) 500 mg in 100 mls @ 100 mls/hr IVPB Q6H-IV [facility] Last Admin: 04/28/19 14:52 Dose: 100 mls/hr Sodium Chloride (Normal Saline -) 1,000 mls @ 75 mls/hr IV ASDIR [facility] Last Admin: 04/27/19 22:30 Dose: 75 mls/hr Insulin Aspart (Novolog Vial Sliding Scale -) 1 vial SQ [facility]; Protocol Last Admin: 04/28/19 11:24 Dose: Not Given Miscellaneous (Duragesic Patch Waste) 1 each TD PRN PRN PRN Reason: PATCH REMOVAL Pantoprazole Sodium (Protonix Iv) 40 mg IVPUSH BID [facility] Last Admin: 04/28/19 09:51 Dose: 40 mg - Objective Vital Signs: Vital Signs Temperature 99.5 F 04/28/19 11:48 Pulse Rate 81 04/28/19 14:10 Respiratory Rate 13 04/28/19 14:10 Blood Pressure 118/51 L 04/28/19 14:10 O2 Sat by Pulse Oximetry (%) 99 04/28/19 14:10 Constitutional: Yes: Calm, Thin Cardiovascular: Yes: Regular Rate and Rhythm, S1, S2 Respiratory: Yes: CTA Bilaterally Gastrointestinal: Yes: Normal Bowel Sounds, Soft, Other (abdominal binder) Edema: No Neurological: Yes: Alert Labs: CBC, BMP 04/28/19 07:25 04/28/19 07:25 Problem List - Problems (1) Abdominal pain Assessment/Plan: iv protonix bid ct scan noted small abscess collection 8mm iv abx Problems reviewed: Yes Code(s): R10.9 - UNSPECIFIED ABDOMINAL PAIN (2) Metastatic lung cancer (metastasis from lung to other site) Assessment/Plan: to back s1 lytic lesion abdominal binder LAUREN on board pain control dt ppx Code(s): C34.90 - MALIGNANT NEOPLASM OF UNSP PART OF UNSP BRONCHUS OR LUNG Qualifiers: Laterality: left Qualified Code(s): C34.92 - Malignant neoplasm of unspecified part of left bronchus or lung
--- NOTE | 2019-04-28 15:13 | PN ---
Progress Note (short form) - Note Progress Note: awake, has midepigastric abdominal pain Vital Signs Period Temp Pulse Resp BP Sys/Paulson Pulse Ox Last 24 Hr 98.6 F-99.5 F 71-105 13-20 105-146/43-69 97-99 cor-rrr lungs decreased bs at bases abd soft, mild midepigastric pain to palpation abd is soft +palpable lower quadrant mass (known) ext no edema CBC, BMP 04/28/19 07:25 04/28/19 07:25 Microbiology 04/27/19 07:00 Urine - Urine Clean Catch Urine Culture - Final Group D Strep Or Entero Coccus 04/26/19 16:00 Blood - Peripheral Venous Blood Culture - Preliminary NO GROWTH OBTAINED AFTER 24 HOURS, INCUBATION TO CONTINUE FOR 4 DAYS. 04/26/19 16:00 Blood - Peripheral Venous Blood Culture - Preliminary NO GROWTH OBTAINED AFTER 24 HOURS, INCUBATION TO CONTINUE FOR 4 DAYS. Active Medications Acetaminophen (Tylenol -) 650 mg PO Q4H PRN PRN Reason: PAIN LEVEL 6-10 Last Admin: 04/28/19 11:47 Dose: 650 mg Fentanyl (Duragesic 50mcg Patch -) 1 patch TD Q72H [facility] Last Admin: 04/26/19 23:25 Dose: 1 patch Ferrous Sulfate (Feosol -) 325 mg PO DAILY [facility] Last Admin: 04/28/19 09:52 Dose: 325 mg Folic Acid (Folic Acid -) 1 mg PO DAILY [facility] Last Admin: 04/28/19 09:52 Dose: 1 mg Heparin Sodium (Porcine) (Heparin -) 5,000 unit SQ BID [facility] Last Admin: 04/28/19 09:51 Dose: 5,000 unit Ertapenem 1 gm/ Sodium (Chloride) 50 mls @ 100 mls/hr IVPB DAILY [facility] Last Admin: 04/28/19 09:51 Dose: 100 mls/hr Metronidazole (Flagyl 500mg Premixed Ivpb -) 500 mg in 100 mls @ 100 mls/hr IVPB Q6H-IV [facility] Last Admin: 04/28/19 14:52 Dose: 100 mls/hr Sodium Chloride (Normal Saline -) 1,000 mls @ 75 mls/hr IV ASDIR [facility] Last Admin: 04/27/19 22:30 Dose: 75 mls/hr Insulin Aspart (Novolog Vial Sliding Scale -) 1 vial SQ ACHS [facility]; Protocol Last Admin: 04/28/19 11:24 Dose: Not Given Miscellaneous (Duragesic Patch Waste) 1 each TD PRN PRN PRN Reason: PATCH REMOVAL Pantoprazole Sodium (Protonix Iv) 40 mg IVPUSH BID [facility] Last Admin: 04/28/19 09:51 Dose: [address] scan with resolution of prior pelvic abscesses, +known mass in abd wall small RLL infiltrate a/p midepigastic pain- ?gastritis RLL infiltrate, leukocytosis metastatic lung cancer switch to zosyn d/w dr meraz
--- NOTE | 2019-04-28 20:21 | CONS ---
DATE OF CONSULTATION: DATE OF DICTATION: 04/28/2019 INFECTIOUS DISEASE CONSULTATION HISTORY OF PRESENT ILLNESS: This is a 79-year-old female who was admitted from the [place] [facility] with left upper quadrant abdominal pain. I know her from prior admission in March when she was in the hospital with fever and abdominal pain. She was found during that admission to have small pelvic abscesses that were felt to be secondary to diverticulitis, and they could not be drained. She had a known mass in the left lower abdominal wall as well as bony metastases from her metastatic lung cancer. She was discharged to the [place] [facility] on ertapenem and p.o. Flagyl for 2 weeks. She is now admitted with left upper quadrant pain. She has no fever, but she has an elevated white count. She denies any shortness of breath and she has a poor appetite. He has no known drug allergies. PAST MEDICAL HISTORY: She is known for a history of metastatic lung cancer on . She has had of radiation. She has a history of hyperlipidemia, diabetes, SIADH. She has had perforated diverticulitis in the past with cultures positive for E. coli ESBL. She has a history of recurrent UTIs in the past as well. SURGICAL HISTORY: Notable for hysterectomy. SMOKING HISTORY: She stopped smoking 3 years ago. There is no history of any other substance use, and she was living alone prior to her last admission after which she went to the [place] [facility]. ALLERGIES: She has no known drug allergies. MEDICATION: Her medications at the [place] [facility] include Crestor, Miralax, folic acid, Feosol, and fentanyl patch. She has just recently completed her course of ertapenem and Flagyl. PHYSICAL EXAMINATION: General: She is a thin woman in no acute distress. Vital Signs: Temperature when I saw her on the was 98, pulse 89, blood pressure 107/67, respiratory rate 16, saturating 98%. She weighs 42 kg. HEENT: Normocephalic. Eyes are anicteric. Neck: Supple. Lungs: Clear to auscultation. Heart: Regular rate and rhythm. Abdomen: Soft. She has midepigastric pain on palpation. There is no distention. She has bowel sounds. She has palpable left lower quadrant mass. Extremities: Without edema. White count is 12.4, hemoglobin 9.5, platelets of 418. Chemistries are notable for BUN and creatinine of 2.9 over 0.3 with normal LFTs and an alkaline phosphatase of 135. Her albumin is 2.2. Blood cultures and urine cultures were sent. She had a CAT scan of her abdomen and pelvis done in the emergency room that was notable for a right lower lobe airspace disease and consolidation. The liver was suspicious for a 1.4-cm metastases. She had multiple diverticula of the colon. She had a 0.8 mm pocket at what was a previous abscess, and of 1.2 cm. She has a previously described left anterior pelvic wall mass, 3.7 x 2 cm in size as well as S1 vertebral body lytic lesion. IMPRESSION: In summary this is a 79-year-old woman with metastatic lung cancer with CAT scan with small right lower lobe infiltrate. I would suspect the midepigastric pain may be gastritis. She has a small pneumonia with leukocytosis in the setting of metastatic lung cancer. This as well could be a possible lung nodule. I would switch to Zosyn at this time and follow up her white count, and further recommendations to follow. The case was discussed with Dr. Matias. Jorgito [id number]
[2019-04-28] MEDS: SODIUM CHLORIDE 1,000 ML IV SCH (22:30)
[2019-04-29] MEDS ORDERED: PIPERACILLIN/TAZOBACTAM 3.375 GM VIAL IVPB ONE ×3 (02:58→17:27)
[2019-04-29] MEDS ORDERED: DEXTROSE 5%-WATER - 50 ML IVPB ONE ×3 (02:58→17:27)
[2019-04-29] MEDS: PIPERACILLIN/TAZOB 3.375 GM 3.375 GM in DEXTROSE 5%-WATER - 50 ML IVPB SCH ×3 (02:59→18:01)
[2019-04-29] MEDS: INSULIN SLIDING SCALE (NOVOLOG) 1 VIAL SQ SCH ×4 (06:55→21:43)
[2019-04-29] MEDS: SODIUM CHLORIDE 1,000 ML IV SCH ×2 (06:56→21:44)
--- NOTE | 2019-04-29 08:26 | PN.GI ---
GI Progress Note Subjective: Patient states feeling better and epigastric pain is improving. She is s/p IR draining of abscess to LLQ. She denies nausea, vomiting, diarrhea, constipation. - Objective Vital Signs: Vital Signs Temperature 98.2 F 04/29/19 06:00 Pulse Rate 84 04/29/19 06:00 Respiratory Rate 20 04/29/19 06:00 Blood Pressure 139/71 04/29/19 06:00 O2 Sat by Pulse Oximetry (%) 99 04/28/19 21:00 Constitutional: No Distress, Calm Eyes: Yes: Conjunctiva Clear HENT: Yes: Atraumatic Cardiovascular: Yes: Regular Rate and Rhythm Respiratory: Yes: Regular, CTA Bilaterally Gastrointestinal Inspection: Yes: WNL. No: Ascites, Distention, Hernia, Scars, Other ...Auscultate: Yes: Normoactive Bowel Sounds. No: Hyperactive Bowel Sounds, Hypoactive Bowel Sounds, No Bowel Sounds, Other ...Palpate: Yes: Soft, Tenderness, Epigastium. No: Firm/Rigid, Guarding, Hepatomegaly, Mass, Pulsatile Mass, Splenomegaly, Tenderness, Tenderness, Rebound, Other ...Percussion: Yes: Tympanitic. No: Dullness, Fluid Wave, Other Wound/Incision: Yes: Dressing Dry and Intact Neurological: Yes: Alert, Oriented Psychiatric: Yes: Alert, Oriented Labs: CBC, BMP 04/28/19 07:25 04/28/19 07:25 Active Medications Generic Name Dose Route Start Last Admin Trade Name Freq PRN Reason Stop Dose Admin Acetaminophen 650 mg 04/26/19 22:41 04/28/19 11:47 Tylenol - PO 650 mg Q4H PRN Administration PAIN LEVEL 6-10 Fentanyl 1 patch 04/26/19 22:45 04/26/19 23:25 Duragesic 50mcg Patch - TD 1 patch Q72H [facility]YNN Administration Ferrous Sulfate 325 mg 04/27/19 10:00 04/28/19 09:52 Feosol - PO 325 mg DAILY LYNN Administration Folic Acid 1 mg 04/27/19 10:00 04/28/19 09:52 Folic Acid - PO 1 mg DAILY [facility]NN Administration Heparin Sodium (Porcine) 5,000 unit 04/27/19 10:00 04/28/19 22:00 Heparin - SQ 5,000 unit BID LYNN Administration Sodium Chloride 1,000 mls @ 75 mls/hr 10/06/19 22:30 04/29/19 06:56 Normal Saline - IV 75 mls/hr ASDIR L[facility]NN Administration Piperacillin Sod/Tazobactam 50 mls @ 100 mls/hr 04/29/19 02:00 04/29/19 02:59 Sod 3.375 gm/ Dextrose IVPB 100 mls/hr Q8H-IV [facility]NN Administration Protocol Insulin Aspart 1 vial 04/27/19 07:00 04/29/19 06:55 Novolog Vial Sliding Scale - SQ Not Given ACHS LYNN Protocol Miscellaneous 1 each 04/26/19 22:56 Duragesic Patch Waste TD PRN PRN PATCH REMOVAL Pantoprazole Sodium 40 mg 04/27/19 14:57 04/28/19 22:01 Protonix Iv IVPUSH 40 mg BID LYNN Administration Problem List - Problems (1) Abdominal pain Assessment/Plan: most likely secondary to metastatic pancreatic cancer >Abd/Pelvic CT scan reviewed, s/p IR draining of abscess >continue with Pantoprazole BID >IV hydration >will advance diet to clear liquids and see if tolerated Code(s): R10.9 - UNSPECIFIED ABDOMINAL PAIN
[2019-04-29] MEDS: ACETAMINOPHEN 325 MG TABLET (FP) PO PRN (11:27)
[2019-04-29] MEDS: FERROUS SO4 325 MG TABLET (FP) PO SCH (11:27)
[2019-04-29] MEDS: FOLIC ACID 1 MG TABLET (FP) PO SCH (11:27)
[2019-04-29] MEDS: PANTOPRAZOLE SODIUM 40 MG VIAL IVPUSH SCH ×2 (11:28→21:42)
[2019-04-29] MEDS: HEPARIN NA (PORCINE) 5,000 UNITS/ML 1ML VIAL SQ SCH ×2 (11:28→21:42)
--- NOTE | 2019-04-29 11:36 | PN ---
Progress Note (short form) - Note Progress Note: Patient remains in bed with significant mechanical back pain when she gets up. - GI/DVT prophylaxis - Control of medical problems will be needed prior to determining feasibility of spinopelvic stabilization.
--- NOTE | 2019-04-29 15:22 | PN ---
Progress Note, Physician Chief Complaint: Abdominal Pain History of Present Illness: Previous notes and events reviewed awake and alert NAD sts abdominal pain is improving denies chest pain or SOB s/p abscess drainage with IR yesterday one episode of vomiting, clear contents - Current Medication List Current Medications: Active Medications Acetaminophen (Tylenol -) 650 mg PO Q4H PRN PRN Reason: PAIN LEVEL 6-10 Last Admin: 04/29/19 11:27 Dose: 650 mg Fentanyl (Duragesic 50mcg Patch -) 1 patch TD Q72H [facility] Last Admin: 04/26/19 23:25 Dose: 1 patch Ferrous Sulfate (Feosol -) 325 mg PO DAILY [facility] Last Admin: 04/29/19 11:27 Dose: 325 mg Folic Acid (Folic Acid -) 1 mg PO DAILY [facility] Last Admin: 04/29/19 11:27 Dose: 1 mg Heparin Sodium (Porcine) (Heparin -) 5,000 unit SQ BID [facility] Last Admin: 04/29/19 11:28 Dose: 5,000 unit Sodium Chloride (Normal Saline -) 1,000 mls @ 75 mls/hr IV ASDIR [facility] Last Admin: 04/29/19 06:56 Dose: 75 mls/hr Piperacillin Sod/Tazobactam (Sod 3.375 gm/ Dextrose) 50 mls @ 100 mls/hr IVPB Q8H-IV [facility]; Protocol Last Admin: 04/29/19 11:28 Dose: 100 mls/hr Insulin Aspart (Novolog Vial Sliding Scale -) 1 vial SQ ACHS [facility]; Protocol Last Admin: 04/29/19 11:48 Dose: Not Given Miscellaneous (Duragesic Patch Waste) 1 each TD PRN PRN PRN Reason: PATCH REMOVAL Pantoprazole Sodium (Protonix Iv) 40 mg IVPUSH BID [facility] Last Admin: 04/29/19 11:28 Dose: 40 mg - Objective Vital Signs: Vital Signs Temperature 98.3 F 04/29/19 14:48 Pulse Rate 77 04/29/19 14:48 Respiratory Rate 20 04/29/19 14:48 Blood Pressure 130/44 L 04/29/19 14:48 O2 Sat by Pulse Oximetry (%) 99 04/29/19 09:00 Constitutional: Yes: No Distress, Calm Eyes: Yes: Conjunctiva Clear HENT: Yes: Atraumatic Cardiovascular: Yes: Regular Rate and Rhythm Respiratory: Yes: Regular, CTA Bilaterally Gastrointestinal: Yes: Normal Bowel Sounds, Soft, Tenderness (mild, diffuse) Genitourinary: Yes: Incontinence Musculoskeletal: Yes: Muscle Weakness Extremities: Yes: WNL Edema: No Wound/Incision: Yes: Dressing Dry and Intact Neurological: Yes: Alert, Oriented, Pre-Existing Deficit Psychiatric: Yes: Alert, Oriented Labs: CBC, BMP 04/28/19 07:25 04/28/19 07:25 Microbiology 04/26/19 16:00 Blood - Peripheral Venous Blood Culture - Preliminary NO GROWTH OBTAINED AFTER 48 HOURS, INCUBATION TO CONTINUE FOR 3 DAYS. 04/26/19 16:00 Blood - Peripheral Venous Blood Culture - Preliminary NO GROWTH OBTAINED AFTER 48 HOURS, INCUBATION TO CONTINUE FOR 3 DAYS. 04/27/19 07:00 Urine - Urine Clean Catch Urine Culture - Final Group D Strep Or Entero Coccus Problem List - Problems (1) Abdominal pain Assessment/Plan: -GI on board -Abd/Pelvic CT scan shows RLL consolidation/pneumonia, posteriorly, cannot rule out underlying pathology/mass, interval suggestion of a couple of low- attenuation lesions in the liver is suspicious of metastasis, residual thickening of sigmoid colon wall with evidence of diverticulosis, , residual tiny extraluminal air pockets posterior to sigmoid colon and questionable residual small collection inseperable from the proximal sigmoid colon wall , essentially stable is size previously visualized low attenuation masslike density in the left lower anterior pelvic wall -Pain control -patient is s/p Abscess drainage with IR 04/28/19 Code(s): R10.9 - UNSPECIFIED ABDOMINAL PAIN (2) [facility] -diabetic diet -A1c 5.4% Code(s): E11.9 - TYPE 2 DIABETES MELLITUS WITHOUT COMPLICATIONS (3) History of ESBL E. coli infection Assessment/Plan: -Contact precaution -ID on board Code(s): Z86.19 - PERSONAL HISTORY OF OTHER INFECTIOUS AND PARASITIC DISEASES (4) Metastatic lung cancer (metastasis from lung to other site) Assessment/Plan: -Fentanyl patch -Oncology on board Code(s): C34.90 - MALIGNANT NEOPLASM OF UNSP PART OF UNSP BRONCHUS OR LUNG Qualifiers: Laterality: left Qualified Code(s): C34.92 - Malignant neoplasm of unspecified part of left bronchus or lung (5) Pneumonia Assessment/Plan: -ID on board -Zosyn -afebrile -WBC 14.4 -O2 via NC -keep SpO2 >90% Code(s): J18.9 - PNEUMONIA, UNSPECIFIED ORGANISM (6) Nausea Assessment/Plan: -zofran prn Code(s): R11.0 - NAUSEA Assessment/Plan ssee problem list dvt ppx
[2019-04-29] MEDS ORDERED: ONDANSETRON 4 MG TABLET PO PRN (15:38)
--- NOTE | 2019-04-29 20:26 | PN ---
Progress Note (short form) - Note Progress Note: I have seen and examined Micheline Glez S:Doing much better now. O: Last Vital Signs Temp Pulse Resp BP Pulse Ox 98.3 F 77 20 130/44 L 99 04/29/19 14:48 04/29/19 14:48 04/29/19 14:48 04/29/19 14:48 04/29/19 09:00 General: NAD HEENT: MMM CVS: S1, S2 Lungs: CTAB Abdomen: Soft, NT, ND Extremities: No edema Neuro: Moves all extremities Current Medications Acetaminophen (Tylenol -) 650 mg PO Q4H PRN PRN Reason: PAIN LEVEL 6-10 Last Admin: 04/29/19 11:27 Dose: 650 mg Fentanyl (Duragesic 50mcg Patch -) 1 patch TD Q72H [facility] Last Admin: 04/26/19 23:25 Dose: 1 patch Ferrous Sulfate (Feosol -) 325 mg PO DAILY [facility] Last Admin: 04/29/19 11:27 Dose: 325 mg Folic Acid (Folic Acid -) 1 mg PO DAILY [facility] Last Admin: 04/29/19 11:27 Dose: 1 mg Heparin Sodium (Porcine) (Heparin -) 5,000 unit SQ BID [facility] Last Admin: 04/29/19 11:28 Dose: 5,000 unit Sodium Chloride (Normal Saline -) 1,000 mls @ 75 mls/hr IV ASDIR [facility] Last Admin: 04/29/19 06:56 Dose: 75 mls/hr Piperacillin Sod/Tazobactam (Sod 3.375 gm/ Dextrose) 50 mls @ 100 mls/hr IVPB Q8H-IV [facility]; Protocol Last Admin: 04/29/19 18:01 Dose: 100 mls/hr Insulin Aspart (Novolog Vial Sliding Scale -) 1 vial SQ ACHS [facility]; Protocol Last Admin: 04/29/19 18:01 Dose: Not Given Miscellaneous (Duragesic Patch Waste) 1 each TD PRN PRN PRN Reason: PATCH REMOVAL Nystatin (Mycostatin Ointment -) 1 applic TP BID [facility] Ondansetron HCl (Zofran -) 4 mg PO Q6H PRN PRN Reason: NAUSEA Pantoprazole Sodium (Protonix Iv) 40 mg IVPUSH BID [facility] Last Admin: 04/29/19 11:28 Dose: 40 mg 04/28/19 07:25 04/28/19 07:25 Assessment and Plan: 79 y/o lady admitted with abdominal pain, recently discharged for diverticulitis. Oncology consulted given history of Stage IV Lung Cancer. Recommend: 1. Abdominal Pain. Agree with antibiotic therapy and GI assessment. 2. Stage IV Lung Cancer/on immunotherapy: Imaging reviewed. MRI abdomen can further delineate nature of liver lesions. Radiologist to comment on whether prior diverticulitis finding may correspond to necrotic metastasis. Upon resolution of acute pathology will be re-evaluated by Dr. Kerr to resume treatment. 3. Normocytic normochromic anemia, likely anemia of chronic disease ( inflammatory). Further investigations and characterization after resolution of acute condition. 4. S/p IR drainage of lesion
[2019-04-29] MEDS: NYSTATIN 100000 UNIT/GM TOPICAL OINTMENT 15 GM TUBE TP SCH (21:43)
[2019-04-29] MEDS: fentaNYL 50mcg/hr PATCH.TD72 TD SCH (22:47)
[2019-04-30] MEDS ORDERED: DEXTROSE 5%-WATER - 50 ML IVPB ONE ×3 (01:25→16:44)
[2019-04-30] MEDS ORDERED: PIPERACILLIN/TAZOBACTAM 3.375 GM VIAL IVPB ONE ×3 (01:25→16:44)
[2019-04-30] MEDS: PIPERACILLIN/TAZOB 3.375 GM 3.375 GM in DEXTROSE 5%-WATER - 50 ML IVPB SCH ×3 (01:34→17:20)
[2019-04-30] MEDS: INSULIN SLIDING SCALE (NOVOLOG) 1 VIAL SQ SCH ×4 (06:23→21:38)
[2019-04-30 09:04] LABS: HEMATOCRIT 28.5 % (32.4-45.2); HEMOGLOBIN 9.3 GM/dL (10.7-15.3); MCH 27.9 pg (25.7-33.7); MCHC 32.7 g/dl (32.0-36.0); MEAN CELL VOLUME 85.5 fl (80-96); PLATELET COUNT 430 K/MM3 (134-434); RBC 3.33 M/mm3 (3.60-5.2); RDW 19.4 % (11.6-15.6)
[2019-04-30 09:57] LABS: ALBUMIN 1.7 g/dl (3.4-5.0); ALK PHOS 107 U/L (45-117); ANION GAP 6 MMOL/L (8-16); BILIRUBIN,TOTAL 0.5 mg/dL (0.2-1); CALCIUM 7.3 mg/dL (8.5-10.1); CHLORIDE 105 mmol/L (98-107); CO2 27 mmol/L (21-32); CREATININE 0.3 mg/dL (0.55-1.3); GLUCOSE,RANDOM 69 mg/dL (74-106); POTASSIUM 3.1 mmol/L (3.5-5.1); SGOT/AST 12 U/L (15-37); SODIUM 138 mmol/L (136-145); TOT PROT 5.5 g/dl (6.4-8.2)
[2019-04-30] MEDS: HEPARIN NA (PORCINE) 5,000 UNITS/ML 1ML VIAL SQ SCH ×2 (10:09→21:37)
[2019-04-30] MEDS: FOLIC ACID 1 MG TABLET (FP) PO SCH (10:10)
[2019-04-30] MEDS: FERROUS SO4 325 MG TABLET (FP) PO SCH (10:10)
[2019-04-30] MEDS: NYSTATIN 100000 UNIT/GM TOPICAL OINTMENT 15 GM TUBE TP SCH ×2 (10:10→21:38)
[2019-04-30] MEDS: PANTOPRAZOLE SODIUM 40 MG VIAL IVPUSH SCH ×2 (10:10→21:37)
[2019-04-30 10:35] LABS: SGPT/ALT < 6 U/L (13-61)
[2019-04-30 10:39] LABS: BLOOD UREA NITROGEN < 1.0 mg/dL (7-18)
--- NOTE | 2019-04-30 11:07 | PN ---
Progress Note, Physician Chief Complaint: Abdominal Pain History of Present Illness: Previous notes and events reviewed awake and alert NAD sts abdominal pain is improving denies chest pain or SOB s/p abscess drainage with IR 04/28/19 no further reports of nausea, vomiting - Current Medication List Current Medications: Active Medications Acetaminophen (Tylenol -) 650 mg PO Q4H PRN PRN Reason: PAIN LEVEL 6-10 Last Admin: 04/29/19 11:27 Dose: 650 mg Fentanyl (Duragesic 50mcg Patch -) 1 patch TD Q72H [facility] Last Admin: 04/29/19 22:47 Dose: 1 patch Ferrous Sulfate (Feosol -) 325 mg PO DAILY [facility] Last Admin: 04/30/19 10:10 Dose: 325 mg Folic Acid (Folic Acid -) 1 mg PO DAILY [facility] Last Admin: 04/30/19 10:10 Dose: 1 mg Heparin Sodium (Porcine) (Heparin -) 5,000 unit SQ BID [facility] Last Admin: 04/30/19 10:09 Dose: 5,000 unit Sodium Chloride (Normal Saline -) 1,000 mls @ 75 mls/hr IV ASDIR [facility] Last Admin: 04/29/19 21:44 Dose: 75 mls/hr Piperacillin Sod/Tazobactam (Sod 3.375 gm/ Dextrose) 50 mls @ 100 mls/hr IVPB Q8H-IV [facility]; Protocol Last Admin: 04/30/19 10:10 Dose: 100 mls/hr Insulin Aspart (Novolog Vial Sliding Scale -) 1 vial SQ ACHS [facility]; Protocol Last Admin: 04/30/19 06:23 Dose: Not Given Miscellaneous (Duragesic Patch Waste) 1 each TD PRN PRN PRN Reason: PATCH REMOVAL Nystatin (Mycostatin Ointment -) 1 applic TP BID [facility] Last Admin: 04/30/19 10:10 Dose: 1 applic Ondansetron HCl (Zofran -) 4 mg PO Q6H PRN PRN Reason: NAUSEA Pantoprazole Sodium (Protonix Iv) 40 mg IVPUSH BID [facility] Last Admin: 04/30/19 10:10 Dose: 40 mg - Objective Vital Signs: Vital Signs Temperature 98.6 F 04/30/19 06:29 Pulse Rate 81 04/30/19 06:29 Respiratory Rate 20 04/30/19 06:29 Blood Pressure 124/58 L 04/30/19 06:29 O2 Sat by Pulse Oximetry (%) 99 04/29/19 22:00 Constitutional: Yes: No Distress, Calm Eyes: Yes: Conjunctiva Clear HENT: Yes: Atraumatic Neck: Yes: Supple Cardiovascular: Yes: Regular Rate and Rhythm Respiratory: Yes: Regular, CTA Bilaterally Gastrointestinal: Yes: Normal Bowel Sounds, Soft, Tenderness (luq) Musculoskeletal: Yes: Muscle Weakness Extremities: Yes: WNL Edema: No Wound/Incision: Yes: Dressing Dry and Intact Neurological: Yes: Alert, Oriented Psychiatric: Yes: Alert, Oriented Labs: CBC, BMP 04/30/19 06:54 04/30/19 06:54 Microbiology 04/26/19 16:00 Blood - Peripheral Venous Blood Culture - Preliminary NO GROWTH OBTAINED AFTER 72 HOURS, INCUBATION TO CONTINUE FOR 2 DAYS. 04/26/19 16:00 Blood - Peripheral Venous Blood Culture - Preliminary NO GROWTH OBTAINED AFTER 72 HOURS, INCUBATION TO CONTINUE FOR 2 DAYS. 04/27/19 07:00 Urine - Urine Clean Catch Urine Culture - Final Group D Strep Or Entero Coccus Problem List - Problems (1) Abdominal pain Assessment/Plan: -GI on board -Abd/Pelvic CT scan shows RLL consolidation/pneumonia, posteriorly, cannot rule out underlying pathology/mass, interval suggestion of a couple of low- attenuation lesions in the liver is suspicious of metastasis, residual thickening of sigmoid colon wall with evidence of diverticulosis, , residual tiny extraluminal air pockets posterior to sigmoid colon and questionable residual small collection inseperable from the proximal sigmoid colon wall , essentially stable is size previously visualized low attenuation masslike density in the left lower anterior pelvic wall -Pain control -patient is s/p Abscess drainage with IR 04/28/19 Code(s): R10.9 - UNSPECIFIED ABDOMINAL PAIN (2) Diabetes Assessment/Plan: -BGM ACHS -ISS -diabetic diet -A1c 5.4% Code(s): E11.9 - TYPE 2 DIABETES MELLITUS WITHOUT COMPLICATIONS (3) History of ESBL E. coli infection Assessment/Plan: -Contact precaution -ID on board Code(s): Z86.19 - PERSONAL HISTORY OF OTHER INFECTIOUS AND PARASITIC DISEASES (4) Metastatic lung cancer (metastasis from lung to other site) Assessment/Plan: -Fentanyl patch -Oncology on board Code(s): C34.90 - MALIGNANT NEOPLASM OF UNSP PART OF UNSP BRONCHUS OR LUNG Qualifiers: Laterality: left Qualified Code(s): C34.92 - Malignant neoplasm of unspecified part of left bronchus or lung (5) Pneumonia Assessment/Plan: -ID on board -Zosyn -afebrile -WBC 12.0 -O2 via NC -keep SpO2 >90% Code(s): J18.9 - PNEUMONIA, UNSPECIFIED ORGANISM (6) Nausea Assessment/Plan: -zofran prn Code(s): R11.0 - NAUSEA Assessment/Plan ssee problem list dvt ppx
[2019-04-30] MEDS ORDERED: POTASSIUM CHLORIDE ORAL LIQUID 20 MEQ/15 ML PO ONE (13:56)
--- NOTE | 2019-04-30 13:56 | CONSULT ---
Consult Consult Specialty:: Nephrology Reason for Consultation:: low bun - History of Present Illness Chief Complaint: abdominal pain History of Present Illness: Pt is a 79 year old female with pmhx of metastatic lung cancer, dm, hld a dn diverticulitis who presents with abd pain. I was called to evaluate her for low bun and hypokalemia. She is known to me from previous admissions. She has poor PO intake. She says that she has not had much appetite. She denies shortness of breath. SHe complain of weakness. - History Source History Provided By: Patient, Medical Record - Past Medical History Cardio/Vascular: Yes: Hyperlipdemia Pulmonary: Yes: Cancer (Metastatic adenocarcinoma dx'ed 08/10) Gastrointestinal: Yes: Diverticulitis Renal/: Yes: UTI Musculoskeletal: Yes: Other (Bony Metastases (s/p RT)) Endocrine: Yes: Diabetes Mellitus, SIADH - Alcohol/Substance Use Hx Alcohol Use: No - Smoking History Smoking history: Never smoked Have you smoked in the past 12 months: No If you are a former smoker, when did you quit?: 3 yrs ago Home Medications - Allergies Allergies/Adverse Reactions: Allergies Allergy/AdvReac Type Severity Reaction Status Date / Time No Known Allergies Allergy Verified 03/10/19 18:01 - Home Medications Home Medications: Ambulatory Orders Rosuvastatin [Crestor -] 10 mg PO DAILY 07/25/18 Folic Acid - 1 mg PO DAILY #30 tablet 07/31/18 Ferrous Sulfate [Feosol] 325 mg PO DAILY #30 ud 02/06/19 FENTANYL 50mcg PATCH [DURAGESIC 50 mcg PATCH -] 1 patch TD Q72H #10 patch.td72 MDD 1 04/09/19 Polyethylene Glycol 3350 [Glycolax] 17 gm PO DAILY 04/26/19 Family Medical History Family History: Denies Review of Systems - Review of Systems Constitutional: reports: Malaise Eyes: reports: No Symptoms HENT: reports: No Symptoms Neck: reports: No Symptoms Cardiovascular: reports: No Symptoms Gastrointestinal: reports: Abdominal Pain Genitourinary: reports: No Symptoms Musculoskeletal: reports: No Symptoms Integumentary: reports: No Symptoms Neurological: reports: No Symptoms Endocrine: reports: No Symptoms Hematology/Lymphatic: reports: No Symptoms Psychiatric: reports: No Symptoms Physical Exam Vital Signs: Vital Signs Temperature 98.6 F 04/30/19 06:29 Pulse Rate 81 04/30/19 06:29 Respiratory Rate 20 04/30/19 06:29 Blood Pressure 124/58 L 04/30/19 06:29 O2 Sat by Pulse Oximetry (%) 99 04/29/19 22:00 Constitutional: Yes: Calm Eyes: Yes: Conjunctiva Clear HENT: Yes: Atraumatic Neck: Yes: Supple Cardiovascular: Yes: S1, S2 Respiratory: Yes: CTA Bilaterally Gastrointestinal: Yes: Soft, Tenderness Renal/: Yes: WNL Musculoskeletal: Yes: WNL Edema: No Neurological: Yes: Oriented Psychiatric: Yes: Oriented Labs: CBC, BMP 04/30/19 06:54 04/30/19 06:54 Laboratory Tests 04/03/19 04/30/19 04/30/19 06:55 06:54 06:54 Hgb 9.3 L Sodium 138 Potassium 3.1 L Anion Gap 6 L BUN < 1.0 L* Creatinine 0.3 L Phosphorus 1.4 L Albumin 1.7 L Assessment/Plan Current Medications Generic Name Dose Route Start Last Admin Trade Name Freq PRN Reason Stop Dose Admin Acetaminophen 650 mg 04/26/19 22:41 04/29/19 11:27 Tylenol - PO 650 mg Q4H PRN Administration PAIN LEVEL 6-10 Fentanyl 1 patch 04/26/19 22:45 04/29/19 22:47 Duragesic 50mcg Patch - TD 1 patch Q72H [facility] Administration Ferrous Sulfate 325 mg 04/27/19 10:00 04/30/19 10:10 Feosol - PO 325 mg DAILY [facility] Administration Folic Acid 1 mg 04/27/19 10:00 04/30/19 10:10 Folic Acid - PO 1 mg DAILY [facility] Administration Heparin Sodium (Porcine) 5,000 unit 04/27/19 10:00 04/30/19 10:09 Heparin - SQ 5,000 unit BID [facility] Administration Sodium Chloride 1,000 mls @ 75 mls/hr 04/27/19 22:30 04/29/19 21:44 Normal Saline - IV 75 mls/hr ASDIR [facility] Administration Piperacillin Sod/Tazobactam 50 mls @ 100 mls/hr 04/29/19 02:00 04/30/19 10:10 Sod 3.375 gm/ Dextrose IVPB 100 mls/hr Q8H-IV [facility] Administration Protocol Insulin Aspart 1 vial 04/27/19 07:00 04/30/19 11:59 Novolog Vial Sliding Scale - SQ Not Given ACHS [facility] Protocol Miscellaneous 1 each 04/26/19 22:56 Duragesic Patch Waste TD PRN PRN PATCH REMOVAL Nystatin 1 applic 04/29/19 22:00 04/30/19 10:10 Mycostatin Ointment - TP 1 applic BID [facility] Administration Ondansetron HCl 4 mg 04/29/19 15:38 Zofran - PO Q6H PRN NAUSEA Pantoprazole Sodium 40 mg 04/27/19 14:57 04/30/19 10:10 Protonix Iv IVPUSH 40 mg BID [facility] Administration Impression 1. hypokalemia 2. lung cancer 3. DM 4. malnutrition 5. pna 6. malnutrition Plan - replace potassium - d/c fluids - start clinimix - encourage po intake - monitor lytes - can have supplements - pain control
--- NOTE | 2019-04-30 15:05 | PN ---
Progress Note (short form) - Note Progress Note: Patient continues to have mechanical back pain with relative relief at rest.
[2019-04-30] MEDS ORDERED: POTASSIUM CHLORIDE 20 MEQ in AMINO ACIDS 4.25%/D5W 1,000 ML IVPB SCH (21:00)
[2019-05-01] MEDS ORDERED: DEXTROSE 5%-WATER - 50 ML IVPB ONE ×3 (00:54→17:38)
[2019-05-01] MEDS ORDERED: PIPERACILLIN/TAZOBACTAM 3.375 GM VIAL IVPB ONE ×3 (00:54→17:38)
[2019-05-01] MEDS: PIPERACILLIN/TAZOB 3.375 GM 3.375 GM in DEXTROSE 5%-WATER - 50 ML IVPB SCH ×3 (01:45→17:50)
[2019-05-01] MEDS: INSULIN SLIDING SCALE (NOVOLOG) 1 VIAL SQ SCH ×4 (06:22→22:15)
[2019-05-01 09:06] LABS: HEMATOCRIT 29.5 % (32.4-45.2); HEMOGLOBIN 9.4 GM/dL (10.7-15.3); MCH 27.4 pg (25.7-33.7); MEAN CELL VOLUME 85.7 fl (80-96); MEAN PLT VOLUME 7.1 fl (7.5-11.1); PLATELET COUNT 440 K/MM3 (134-434); RBC 3.44 M/mm3 (3.60-5.2); WHITE BLOOD COUNT 11.9 K/mm3 (4.0-10.0)
--- NOTE | 2019-05-01 09:22 | PN ---
Progress Note (short form) - Note Progress Note: Patient seen and examined Reports feeling better Reports epigastric pain AFVSS Cor: RSR, No murmurs, No gallops Lungs: Clear to P&A Abd: Soft, Normal bowel sounds, No organomegaly Ext:No significant edema Labs/Meds reviewed A/P 79 year old, [place]ong [place]onger-speaking female with a history of metastatic lung CA, hyperlipidemia, diabetes mellitus, SIADH, frequent UTIs admitted for abdominal pain secondary to sigmoid diverticulitis Metastatic lung cancer, adenoca -- with RLL lung mass/ supraclavicular adenopathy/abdominal wall mass/ sacral metastasis Mutation analyisis negative PDL1-50% s/p keytruda , followed by keytruda/carbo/alimta, and more recently abraxane Received palliative RT to abdominal wall mass/ supraclavicular nodes Declining performance status HAd discussed overall poor prognosis with patient and family last visit Will rediscuss with daughter
[2019-05-01] MEDS: FOLIC ACID 1 MG TABLET (FP) PO SCH (09:32)
[2019-05-01] MEDS: FERROUS SO4 325 MG TABLET (FP) PO SCH (09:32)
[2019-05-01] MEDS: HEPARIN NA (PORCINE) 5,000 UNITS/ML 1ML VIAL SQ SCH ×2 (09:32→22:14)
[2019-05-01] MEDS: NYSTATIN 100000 UNIT/GM TOPICAL OINTMENT 15 GM TUBE TP SCH ×2 (09:33→22:14)
[2019-05-01] MEDS: PANTOPRAZOLE SODIUM 40 MG VIAL IVPUSH SCH ×2 (09:33→22:15)
[2019-05-01 11:05] LABS: ALBUMIN 1.7 g/dl (3.4-5.0); ALK PHOS 106 U/L (45-117); ANION GAP 4 MMOL/L (8-16); BILIRUBIN,TOTAL 0.2 mg/dL (0.2-1); CALCIUM 7.7 mg/dL (8.5-10.1); CHLORIDE 106 mmol/L (98-107); CO2 28 mmol/L (21-32); CREATININE 0.4 mg/dL (0.55-1.3); GLUCOSE,RANDOM 104 mg/dL (74-106); MAGNESIUM 1.6 mg/dL (1.8-2.4); PHOSPHOROUS 1.6 mg/dL (2.5-4.9); POTASSIUM 3.8 mmol/L (3.5-5.1); SGOT/AST 13 U/L (15-37); SGPT/ALT < 6 U/L (13-61); SODIUM 138 mmol/L (136-145); TOT PROT 5.6 g/dl (6.4-8.2)
[2019-05-01 11:43] LABS: BLOOD UREA NITROGEN 1.9 mg/dL (7-18)
--- NOTE | 2019-05-01 12:51 | PN ---
Progress Note, Physician Chief Complaint: Abdominal Pain History of Present Illness: Previous notes and events reviewed awake and alert NAD sts abdominal pain is improving denies chest pain or SOB s/p abscess drainage with IR 04/28/19 - Current Medication List Current Medications: Active Medications Acetaminophen (Tylenol -) 650 mg PO Q4H PRN PRN Reason: PAIN LEVEL 6-10 Last Admin: 04/29/19 11:27 Dose: 650 mg Fentanyl (Duragesic 50mcg Patch -) 1 patch TD Q72H [facility] Last Admin: 04/29/19 22:47 Dose: 1 patch Ferrous Sulfate (Feosol -) 325 mg PO DAILY [facility] Last Admin: 05/01/19 09:32 Dose: 325 mg Folic Acid (Folic Acid -) 1 mg PO DAILY [facility] Last Admin: 05/01/19 09:32 Dose: 1 mg Heparin Sodium (Porcine) (Heparin -) 5,000 unit SQ BID [facility] Last Admin: 05/01/19 09:32 Dose: 5,000 unit Piperacillin Sod/Tazobactam (Sod 3.375 gm/ Dextrose) 50 mls @ 100 mls/hr IVPB Q8H-IV [facility]; Protocol Last Admin: 05/01/19 09:32 Dose: 100 mls/hr Potassium Chloride 20 meq/ (Amino Acids) 1,010 mls @ 55 mls/hr IVPB Q24H [facility] Last Admin: 04/30/19 22:21 Dose: 55 mls/hr Insulin Aspart (Novolog Vial Sliding Scale -) 1 vial SQ ACHS [facility]; Protocol Last Admin: 05/01/19 11:06 Dose: Not Given Miscellaneous (Duragesic Patch Waste) 1 each TD PRN PRN PRN Reason: PATCH REMOVAL Nystatin (Mycostatin Ointment -) 1 applic TP BID [facility] Last Admin: 05/01/19 09:33 Dose: 1 applic Ondansetron HCl (Zofran -) 4 mg PO Q6H PRN PRN Reason: NAUSEA Pantoprazole Sodium (Protonix Iv) 40 mg IVPUSH BID [facility] Last Admin: 05/01/19 09:33 Dose: 40 mg - Objective Vital Signs: Vital Signs Temperature 98.8 F 05/01/19 05:51 Pulse Rate 74 05/01/19 05:51 Respiratory Rate 20 05/01/19 05:51 Blood Pressure 111/55 L 05/01/19 05:51 O2 Sat by Pulse Oximetry (%) 98 04/30/19 22:00 Constitutional: Yes: No Distress, Calm Eyes: Yes: Conjunctiva Clear HENT: Yes: Atraumatic Cardiovascular: Yes: Regular Rate and Rhythm Respiratory: Yes: Regular, CTA Bilaterally Gastrointestinal: Yes: Normal Bowel Sounds, Soft, Tenderness (mild, luq) Genitourinary: Yes: Incontinence Musculoskeletal: Yes: Muscle Weakness Extremities: Yes: WNL Edema: No Neurological: Yes: Alert, Oriented Psychiatric: Yes: Alert, Oriented Labs: CBC, BMP 05/01/19 07:25 05/01/19 07:25 Microbiology 04/26/19 16:00 Blood - Peripheral Venous Blood Culture - Preliminary NO GROWTH OBTAINED AFTER 96 HOURS, INCUBATION TO CONTINUE FOR 1 DAYS. 04/26/19 16:00 Blood - Peripheral Venous Blood Culture - Preliminary NO GROWTH OBTAINED AFTER 96 HOURS, INCUBATION TO CONTINUE FOR 1 DAYS. 04/27/19 07:00 Urine - Urine Clean Catch Urine Culture - Final Group D Strep Or Entero Coccus Problem List - Problems (1) Abdominal pain Assessment/Plan: -GI on board -Abd/Pelvic CT scan shows RLL consolidation/pneumonia, posteriorly, cannot rule out underlying pathology/mass, interval suggestion of a couple of low- attenuation lesions in the liver is suspicious of metastasis, residual thickening of sigmoid colon wall with evidence of diverticulosis, , residual tiny extraluminal air pockets posterior to sigmoid colon and questionable residual small collection inseperable from the proximal sigmoid colon wall , essentially stable is size previously visualized low attenuation masslike density in the left lower anterior pelvic wall -Pain control -patient is s/p Abscess drainage with IR 04/28/19 Code(s): R10.9 - UNSPECIFIED ABDOMINAL PAIN (2) Diabetes Assessment/Plan: -BGM ACHS -ISS -diabetic diet -A1c 5.4% Code(s): E11.9 - TYPE 2 DIABETES MELLITUS WITHOUT COMPLICATIONS (3) History of ESBL E. coli infection Assessment/Plan: -Contact precaution -ID on board Code(s): Z86.19 - PERSONAL HISTORY OF OTHER INFECTIOUS AND PARASITIC DISEASES (4) Metastatic lung cancer (metastasis from lung to other site) Assessment/Plan: -Fentanyl patch -Oncology on board Code(s): C34.90 - MALIGNANT NEOPLASM OF UNSP PART OF UNSP BRONCHUS OR LUNG Qualifiers: Laterality: left Qualified Code(s): C34.92 - Malignant neoplasm of unspecified part of left bronchus or lung (5) Pneumonia Assessment/Plan: -ID on board -Zosyn -afebrile -WBC 11.9 -O2 via NC -keep SpO2 >90% Code(s): J18.9 - PNEUMONIA, UNSPECIFIED ORGANISM (6) Nausea Assessment/Plan: -zofran prn Code(s): R11.0 - NAUSEA Assessment/Plan ssee problem list dvt ppx
--- NOTE | 2019-05-01 16:48 | PN ---
Progress Note, Physician History of Present Illness: Pt seen and examined at bedside. She is awake and alert. She denies shortness of breath. She is starting to eat more. - Current Medication List Current Medications: Active Medications Acetaminophen (Tylenol -) 650 mg PO Q4H PRN PRN Reason: PAIN LEVEL 6-10 Last Admin: 04/29/19 11:27 Dose: 650 mg Fentanyl (Duragesic 50mcg Patch -) 1 patch TD Q72H [facility] Last Admin: 04/29/19 22:47 Dose: 1 patch Ferrous Sulfate (Feosol -) 325 mg PO DAILY [facility] Last Admin: 05/01/19 09:32 Dose: 325 mg Folic Acid (Folic Acid -) 1 mg PO DAILY [facility] Last Admin: 05/01/19 09:32 Dose: 1 mg Heparin Sodium (Porcine) (Heparin -) 5,000 unit SQ BID [facility] Last Admin: 05/01/19 09:32 Dose: 5,000 unit Piperacillin Sod/Tazobactam (Sod 3.375 gm/ Dextrose) 50 mls @ 100 mls/hr IVPB Q8H-IV [facility]; Protocol Last Admin: 05/01/19 09:32 Dose: 100 mls/hr Potassium Chloride 20 meq/ (Amino Acids) 1,010 mls @ 55 mls/hr IVPB Q24H [facility] Last Admin: 04/30/19 22:21 Dose: 55 mls/hr Insulin Aspart (Novolog Vial Sliding Scale -) 1 vial SQ ACHS [facility]; Protocol Last Admin: 05/01/19 11:06 Dose: Not Given Miscellaneous (Duragesic Patch Waste) 1 each TD PRN PRN PRN Reason: PATCH REMOVAL Nystatin (Mycostatin Ointment -) 1 applic TP BID [facility] Last Admin: 05/01/19 09:33 Dose: 1 applic Ondansetron HCl (Zofran -) 4 mg PO Q6H PRN PRN Reason: NAUSEA Pantoprazole Sodium (Protonix Iv) 40 mg IVPUSH BID [facility] Last Admin: 05/01/19 09:33 Dose: 40 mg - Objective Vital Signs: Vital Signs Temperature 98.3 F 05/01/19 14:47 Pulse Rate 92 H 05/01/19 14:47 Respiratory Rate 20 05/01/19 14:47 Blood Pressure 111/45 L 05/01/19 14:47 O2 Sat by Pulse Oximetry (%) 97 05/01/19 09:00 Constitutional: Yes: Calm Eyes: Yes: Conjunctiva Clear HENT: Yes: Atraumatic Neck: Yes: Supple Cardiovascular: Yes: S1, S2 Respiratory: Yes: CTA Bilaterally Gastrointestinal: Yes: Soft, Tenderness Genitourinary: Yes: WNL Musculoskeletal: Yes: WNL Edema: No Integumentary: Yes: WNL Neurological: Yes: Oriented Psychiatric: Yes: Oriented Labs: CBC, BMP 05/01/19 07:25 05/01/19 07:25 Assessment/Plan Current Medications Generic Name Dose Route Start Last Admin Trade Name Freq PRN Reason Stop Dose Admin Acetaminophen 650 mg 04/26/19 22:41 04/29/19 11:27 Tylenol - PO 650 mg Q4H PRN Administration PAIN LEVEL 6-10 Fentanyl 1 patch 04/26/19 22:45 04/29/19 22:47 Duragesic 50mcg Patch - TD 1 patch Q72H [facility] Administration Ferrous Sulfate 325 mg 04/27/19 10:00 05/01/19 09:32 Feosol - PO 325 mg DAILY [facility] Administration Folic Acid 1 mg 04/27/19 10:00 05/01/19 09:32 Folic Acid - PO 1 mg DAILY [facility] Administration Heparin Sodium (Porcine) 5,000 unit 04/27/19 10:00 05/01/19 09:32 Heparin - SQ 5,000 unit BID [facility] Administration Piperacillin Sod/Tazobactam 50 mls @ 100 mls/hr 04/29/19 02:00 05/01/19 09:32 Sod 3.375 gm/ Dextrose IVPB 100 mls/hr Q8H-IV [facility] Administration Protocol Potassium Chloride 20 meq/ 1,010 mls @ 55 mls/hr 05/01/19 17:00 Amino Acids IVPB Q18H [facility] Insulin Aspart 1 vial 04/27/19 07:00 05/01/19 11:06 Novolog Vial Sliding Scale - SQ Not Given ACHS [facility] Protocol Miscellaneous 1 each 04/26/19 22:56 Duragesic Patch Waste TD PRN PRN PATCH REMOVAL Nystatin 1 applic 04/29/19 22:00 05/01/19 09:33 Mycostatin Ointment - TP 1 applic BID [facility] Administration Ondansetron HCl 4 mg 04/29/19 15:38 Zofran - PO Q6H PRN NAUSEA Pantoprazole Sodium 40 mg 04/27/19 14:57 05/01/19 09:33 Protonix Iv IVPUSH 40 mg BID [facility] Administration Impression 1. hypokalemia 2. lung cancer 3. DM 4. malnutrition 5. pna 6. malnutrition Plan - replace phos - replace mag - cont clinimix - cont supplements - monitor albumin - pain control
[2019-05-01] MEDS: POTASSIUM CHLORIDE 20 MEQ in AMINO ACIDS 4.25%/D5W 1,000 ML IVPB SCH (17:00)
[2019-05-01] MEDS ORDERED: SODIUM PHOSPHATE - 20 MM in SODIUM CHLORIDE 250 ML IVPB ONE (17:00)
[2019-05-01] MEDS ORDERED: INSULIN (NOVOLOG) ASPART 100 UNITS/ML 10ML VIAL ONE (21:30)
[2019-05-01] MEDS: MAGNESIUM OXIDE 400 MG TABLET (FP) PO SCH (22:14)
[2019-05-01] MEDS: NAPH,MB-DB/K PH,MBDB POWDER PACKET PO SCH (22:15)
[2019-05-02] MEDS ORDERED: DEXTROSE 5%-WATER - 50 ML IVPB ONE ×3 (02:44→17:19)
[2019-05-02] MEDS ORDERED: PIPERACILLIN/TAZOBACTAM 3.375 GM VIAL IVPB ONE ×3 (02:44→17:19)
[2019-05-02] MEDS: PIPERACILLIN/TAZOB 3.375 GM 3.375 GM in DEXTROSE 5%-WATER - 50 ML IVPB SCH ×3 (02:55→18:00)
[2019-05-02] MEDS: INSULIN SLIDING SCALE (NOVOLOG) 1 VIAL SQ SCH ×4 (06:10→21:46)
[2019-05-02] MEDS: MAGNESIUM OXIDE 400 MG TABLET (FP) PO SCH ×2 (09:54→21:41)
[2019-05-02] MEDS: PANTOPRAZOLE SODIUM 40 MG VIAL IVPUSH SCH ×2 (09:54→21:41)
[2019-05-02] MEDS: NAPH,MB-DB/K PH,MBDB POWDER PACKET PO SCH ×2 (09:54→21:41)
[2019-05-02] MEDS: HEPARIN NA (PORCINE) 5,000 UNITS/ML 1ML VIAL SQ SCH ×2 (09:54→21:41)
[2019-05-02] MEDS: FOLIC ACID 1 MG TABLET (FP) PO SCH (09:54)
[2019-05-02] MEDS: FERROUS SO4 325 MG TABLET (FP) PO SCH (09:54)
[2019-05-02] MEDS: NYSTATIN 100000 UNIT/GM TOPICAL OINTMENT 15 GM TUBE TP SCH ×2 (09:55→21:41)
[2019-05-02 10:18] LABS: ALBUMIN 1.8 g/dl (3.4-5.0); BILIRUBIN,TOTAL 1.4 mg/dL (0.2-1); BLOOD UREA NITROGEN 7.9 mg/dL (7-18); CALCIUM 7.8 mg/dL (8.5-10.1); CREATININE 0.4 mg/dL (0.55-1.3); MAGNESIUM 1.5 mg/dL (1.8-2.4); PHOSPHOROUS 1.7 mg/dL (2.5-4.9); POTASSIUM 3.6 mmol/L (3.5-5.1); TOT PROT 5.9 g/dl (6.4-8.2)
[2019-05-02] MEDS ORDERED: MAGNESIUM SULF 50% (8.12 MEQ/2 ML-1 GM VIAL) IVPB ONE (10:57)
[2019-05-02] MEDS: POTASSIUM CHLORIDE 20 MEQ in AMINO ACIDS 4.25%/D5W 1,000 ML IVPB SCH ×2 (11:46→17:43)
[2019-05-02] MEDS ORDERED: POTASSIUM PHOSPHATE 20 MM in SODIUM CHLORIDE 250 ML IVPB ONE (12:00)
--- NOTE | 2019-05-02 14:30 | PN ---
Progress Note, Physician Chief Complaint: complaining of back pain lab valyes noted for low electrolytes - Current Medication List Current Medications: Active Medications Acetaminophen (Tylenol -) 650 mg PO Q4H PRN PRN Reason: PAIN LEVEL 6-10 Last Admin: 04/29/19 11:27 Dose: 650 mg Fentanyl (Duragesic 50mcg Patch -) 1 patch TD Q72H [facility] Last Admin: 04/29/19 22:47 Dose: 1 patch Ferrous Sulfate (Feosol -) 325 mg PO DAILY [facility] Last Admin: 05/02/19 09:54 Dose: 325 mg Folic Acid (Folic Acid -) 1 mg PO DAILY [facility] Last Admin: 05/02/19 09:54 Dose: 1 mg Heparin Sodium (Porcine) (Heparin -) 5,000 unit SQ BID [facility] Last Admin: 05/02/19 09:54 Dose: 5,000 unit Piperacillin Sod/Tazobactam (Sod 3.375 gm/ Dextrose) 50 mls @ 100 mls/hr IVPB Q8H-IV [facility]; Protocol Last Admin: 05/02/19 10:13 Dose: 100 mls/hr Potassium Chloride 20 meq/ (Amino Acids) 1,010 mls @ 55 mls/hr IVPB Q18H [facility] Last Admin: 05/02/19 11:46 Dose: 55 mls/hr Potassium Phosphate 20 mm/ (Sodium Chloride) 256.6667 mls @ 42.77 mls/hr IVPB ONCE ONE Stop: 05/02/19 18:00 Last Admin: 05/02/19 13:00 Dose: 42.77 mls/hr Insulin Aspart (Novolog Vial Sliding Scale -) 1 vial SQ ACHS [facility]; Protocol Last Admin: 05/02/19 11:46 Dose: Not Given Magnesium Oxide (Mag-Ox -) 400 mg PO BID [facility] Last Admin: 05/02/19 09:54 Dose: 400 mg Miscellaneous (Duragesic Patch Waste) 1 each TD PRN PRN PRN Reason: PATCH REMOVAL Nystatin (Mycostatin Ointment -) 1 applic TP BID [facility] Last Admin: 05/02/19 09:55 Dose: 1 applic Ondansetron HCl (Zofran -) 4 mg PO Q6H PRN PRN Reason: NAUSEA Pantoprazole Sodium (Protonix Iv) 40 mg IVPUSH BID [facility] Last Admin: 05/02/19 09:54 Dose: 40 mg Potassium Phos/Sodium Phos (Phos-Nak Packet -) 1 packet PO BID [facility] Last Admin: 05/02/19 09:54 Dose: 1 packet - Objective Vital Signs: Vital Signs Temperature 97.9 F 05/02/19 05:00 Pulse Rate 86 05/02/19 05:00 Respiratory Rate 20 05/01/19 23:46 Blood Pressure 116/57 L 05/02/19 05:00 O2 Sat by Pulse Oximetry (%) 97 05/01/19 21:00 Constitutional: Yes: Calm Cardiovascular: Yes: Regular Rate and Rhythm, S1, S2 Respiratory: Yes: CTA Bilaterally Gastrointestinal: Yes: Normal Bowel Sounds, Soft Edema: No Neurological: Yes: Alert Labs: CBC, BMP 05/01/19 07:25 05/02/19 08:25 Problem List - Problems (1) Abdominal pain Assessment/Plan: iv protonix bid ct scan noted small abscess collection 8mm- IR abscess drainage iv abx on clinimix Code(s): R10.9 - UNSPECIFIED ABDOMINAL PAIN (2) Metastatic lung cancer (metastasis from lung to other site) Assessment/Plan: to back s1 lytic lesion LAUREN on board pain control dt ppx Code(s): C34.90 - MALIGNANT NEOPLASM OF UNSP PART OF UNSP BRONCHUS OR LUNG Qualifiers: Laterality: left Qualified Code(s): C34.92 - Malignant neoplasm of unspecified part of left bronchus or lung (3) Electrolyte abnormality Assessment/Plan: pjhosphorous and magnesium repleted Code(s): E87.8 - OTH DISORDERS OF ELECTROLYTE AND FLUID BALANCE, NEC (4) Anemia Assessment/Plan: iron panel ordered PPI bid Code(s): D64.9 - ANEMIA, UNSPECIFIED
[2019-05-02] MEDS ORDERED: SODIUM PHOSPHATE - 20 MM in SODIUM CHLORIDE 250 ML IVPB ONE (16:57)
--- NOTE | 2019-05-02 16:57 | PN ---
Progress Note, Physician History of Present Illness: Pt seen and examined at bedside. She is awake and alert. SHe denies shortness of breath. - Current Medication List Current Medications: Active Medications Acetaminophen (Tylenol -) 650 mg PO Q4H PRN PRN Reason: PAIN LEVEL 6-10 Last Admin: 04/29/19 11:27 Dose: 650 mg Fentanyl (Duragesic 50mcg Patch -) 1 patch TD Q72H [facility] Last Admin: 04/29/19 22:47 Dose: 1 patch Ferrous Sulfate (Feosol -) 325 mg PO DAILY [facility] Last Admin: 05/02/19 09:54 Dose: 325 mg Folic Acid (Folic Acid -) 1 mg PO DAILY [facility] Last Admin: 05/02/19 09:54 Dose: 1 mg Heparin Sodium (Porcine) (Heparin -) 5,000 unit SQ BID [facility] Last Admin: 05/02/19 09:54 Dose: 5,000 unit Piperacillin Sod/Tazobactam (Sod 3.375 gm/ Dextrose) 50 mls @ 100 mls/hr IVPB Q8H-IV [facility]; Protocol Last Admin: 05/02/19 10:13 Dose: 100 mls/hr Potassium Chloride 20 meq/ (Amino Acids) 1,010 mls @ 55 mls/hr IVPB Q18H [facility] Last Admin: 05/02/19 11:46 Dose: 55 mls/hr Potassium Phosphate 20 mm/ (Sodium Chloride) 256.6667 mls @ 42.77 mls/hr IVPB ONCE ONE Stop: 05/02/19 18:00 Last Admin: 05/02/19 13:00 Dose: 42.77 mls/hr Insulin Aspart (Novolog Vial Sliding Scale -) 1 vial SQ ACHS [facility]; Protocol Last Admin: 05/02/19 11:46 Dose: Not Given Magnesium Oxide (Mag-Ox -) 400 mg PO BID [facility] Last Admin: 05/02/19 09:54 Dose: 400 mg Miscellaneous (Duragesic Patch Waste) 1 each TD PRN PRN PRN Reason: PATCH REMOVAL Nystatin (Mycostatin Ointment -) 1 applic TP BID [facility] Last Admin: 05/02/19 09:55 Dose: 1 applic Ondansetron HCl (Zofran -) 4 mg PO Q6H PRN PRN Reason: NAUSEA Pantoprazole Sodium (Protonix Iv) 40 mg IVPUSH BID [facility] Last Admin: 05/02/19 09:54 Dose: 40 mg Potassium Phos/Sodium Phos (Phos-Nak Packet -) 1 packet PO BID [facility] Last Admin: 05/02/19 09:54 Dose: 1 packet - Objective Vital Signs: Vital Signs Temperature 98.1 F 05/02/19 14:38 Pulse Rate 84 05/02/19 14:38 Respiratory Rate 20 05/02/19 09:00 Blood Pressure 118/65 05/02/19 14:38 O2 Sat by Pulse Oximetry (%) 97 05/02/19 09:00 Constitutional: Yes: Calm Eyes: Yes: Conjunctiva Clear HENT: Yes: Atraumatic Neck: Yes: Supple Cardiovascular: Yes: S1, S2 Respiratory: Yes: CTA Bilaterally Gastrointestinal: Yes: Soft Genitourinary: Yes: WNL Musculoskeletal: Yes: WNL Edema: No Neurological: Yes: Oriented Psychiatric: Yes: Oriented Labs: CBC, BMP 05/01/19 07:25 05/02/19 08:25 Assessment/Plan Current Medications Generic Name Dose Route Start Last Admin Trade Name Freq PRN Reason Stop Dose Admin Acetaminophen 650 mg 04/26/19 22:41 04/29/19 11:27 Tylenol - PO 650 mg Q4H PRN Administration PAIN LEVEL 6-10 Fentanyl 1 patch 04/26/19 22:45 04/29/19 22:47 Duragesic 50mcg Patch - TD 1 patch Q72H [facility] Administration Ferrous Sulfate 325 mg 04/27/19 10:00 05/02/19 09:54 Feosol - PO 325 mg DAILY [facility] Administration Folic Acid 1 mg 04/27/19 10:00 05/02/19 09:54 Folic Acid - PO 1 mg DAILY [facility] Administration Heparin Sodium (Porcine) 5,000 unit 04/27/19 10:00 05/02/19 09:54 Heparin - SQ 5,000 unit BID [facility] Administration Piperacillin Sod/Tazobactam 50 mls @ 100 mls/hr 04/29/19 02:00 05/02/19 10:13 Sod 3.375 gm/ Dextrose IVPB 100 mls/hr Q8H-IV [facility] Administration Protocol Potassium Chloride 20 meq/ 1,010 mls @ 55 mls/hr 05/01/19 17:00 05/02/19 11: 46 Amino Acids IVPB 55 mls/hr Q18H [facility] Administration Potassium Phosphate 20 mm/ 256.6667 mls @ 42.77 mls/hr 05/02/19 12:00 13:00 Sodium Chloride IVPB 05/02/19 18:00 42.77 mls/hr ONCE ONE Administration 20 MM/6 HR Insulin Aspart 1 vial 04/27/19 07:00 05/02/19 11:46 Novolog Vial Sliding Scale - SQ Not Given ACHS [facility] Protocol Magnesium Oxide 400 mg 05/01/19 22:00 05/02/19 09:54 Mag-Ox - PO 400 mg BID [facility] Administration Miscellaneous 1 each 04/26/19 22:56 Duragesic Patch Waste TD PRN PRN PATCH REMOVAL Nystatin 1 applic 04/29/19 22:00 05/02/19 09:55 Mycostatin Ointment - TP 1 applic BID [facility] Administration Ondansetron HCl 4 mg 04/29/19 15:38 Zofran - PO Q6H PRN NAUSEA Pantoprazole Sodium 40 mg 04/27/19 14:57 05/02/19 09:54 Protonix Iv IVPUSH 40 mg BID [facility] Administration Potassium Phos/Sodium Phos 1 packet 05/01/19 22:00 05/02/19 09:54 Phos-Nak Packet - PO 1 packet BID [facility] Administration Laboratory Tests 05/02/19 08:25 BUN 7.9 Creatinine 0.4 L Phosphorus 1.7 L Magnesium 1.5 L Impression 1. hypokalemia 2. lung cancer 3. DM 4. malnutrition 5. pna 6. malnutrition Plan - cont mag supplements - cont phos supplements - d/c clinimix once eating improvs - monitor albumin - will follow PRN
--- NOTE | 2019-05-02 17:24 | PATH ---
Cytology Non-Gynecological Report Patient Name: SULAIMAN SCHMIDT [facility]. Rec. #: [id number] /Age/Gender: 1940 (Age: 79) / F Account: [id number] Location: [address] [place] [address] Taken: 04/28/2019 Received: 04/28/2019 Reported: 05/02/2019 Physicians: Cesar Wade M.D. Specimen(s) Received PELVIC FLUID Clinical History History of lung adenocarcinoma Final Diagnosis PELVIC FLUID COLLECTION FOR CYTOLOGY: SATISFACTORY FOR EVALUATION. ATYPICAL CELLS PRESENT. SEE COMMENT. Comment: Scattered atypical cells with hyperchromatic, enlarged nuclei in a background of necrosis and degenerative change. These cells are diffusely positive for cytokeratin immunostains AE1/AE3, CK-7, focally positive for CK20, while negative for TTF-1, calretinin, and WT-1. CD68 highlights few macrophages in the background. MAKSIM and CHITO show focal positivity in the degenerative cells. This immunophenotype is nonspecific, however a necrotic neoplasm cannot be ruled out. Suggest clinical correlation. AE1/AE3, CK-7, CK20, TTF-1, and CHITO were performed and interpreted at [facility]. MAKSIM, calretinin, WT-1 and CD68 were performed at [place], [place] ([id number]) and interpreted at [facility]. Positive and negative controls (internal if applicable) show appropriate results. Electronically Signed Chris Holloway M.D. Gross Description Approximately 30cc of brown fluid received fixed in 50% alcohol. One cytospin and one cellblock prepared.
[2019-05-03] MEDS: fentaNYL 50mcg/hr PATCH.TD72 TD SCH (01:30)
[2019-05-03] MEDS ORDERED: DEXTROSE 5%-WATER - 50 ML IVPB ONE ×3 (01:31→16:20)
[2019-05-03] MEDS ORDERED: PIPERACILLIN/TAZOBACTAM 3.375 GM VIAL IVPB ONE ×3 (01:31→16:20)
[2019-05-03] MEDS: PIPERACILLIN/TAZOB 3.375 GM 3.375 GM in DEXTROSE 5%-WATER - 50 ML IVPB SCH ×3 (01:38→17:10)
[2019-05-03] MEDS: INSULIN SLIDING SCALE (NOVOLOG) 1 VIAL SQ SCH ×4 (06:13→22:03)
[2019-05-03] MEDS: POTASSIUM CHLORIDE 20 MEQ in AMINO ACIDS 4.25%/D5W 1,000 ML IVPB SCH ×2 (10:16→16:07)
[2019-05-03] MEDS: MAGNESIUM OXIDE 400 MG TABLET (FP) PO SCH ×2 (10:19→21:59)
[2019-05-03] MEDS: FOLIC ACID 1 MG TABLET (FP) PO SCH (10:19)
[2019-05-03] MEDS: NAPH,MB-DB/K PH,MBDB POWDER PACKET PO SCH ×2 (10:19→22:00)
[2019-05-03] MEDS: PANTOPRAZOLE SODIUM 40 MG VIAL IVPUSH SCH ×2 (10:19→22:00)
[2019-05-03] MEDS: FERROUS SO4 325 MG TABLET (FP) PO SCH (10:19)
[2019-05-03] MEDS: NYSTATIN 100000 UNIT/GM TOPICAL OINTMENT 15 GM TUBE TP SCH ×2 (10:20→21:59)
[2019-05-03] MEDS: HEPARIN NA (PORCINE) 5,000 UNITS/ML 1ML VIAL SQ SCH ×2 (10:20→21:59)
[2019-05-03 11:24] LABS: ALBUMIN 2.1 g/dl (3.4-5.0); BILIRUBIN,TOTAL 0.3 mg/dL (0.2-1); BLOOD UREA NITROGEN 9.6 mg/dL (7-18); CALCIUM 8.6 mg/dL (8.5-10.1); CREATININE 0.4 mg/dL (0.55-1.3); MAGNESIUM 1.7 mg/dL (1.8-2.4); PHOSPHOROUS 3.1 mg/dL (2.5-4.9); POTASSIUM 3.8 mmol/L (3.5-5.1); TOT PROT 7.1 g/dl (6.4-8.2)
--- NOTE | 2019-05-03 13:47 | PN ---
Progress Note, Physician Chief Complaint: AWAKE ALERT NOTES REVIEWED NO FEVER NO CHILLS - Current Medication List Current Medications: Active Medications Acetaminophen (Tylenol -) 650 mg PO Q4H PRN PRN Reason: PAIN LEVEL 6-10 Last Admin: 04/29/19 11:27 Dose: 650 mg Fentanyl (Duragesic 50mcg Patch -) 1 patch TD Q72H [facility] Last Admin: 05/03/19 01:30 Dose: 1 patch Ferrous Sulfate (Feosol -) 325 mg PO DAILY [facility] Last Admin: 05/03/19 10:19 Dose: 325 mg Folic Acid (Folic Acid -) 1 mg PO DAILY [facility] Last Admin: 05/03/19 10:19 Dose: 1 mg Heparin Sodium (Porcine) (Heparin -) 5,000 unit SQ BID [facility] Last Admin: 05/03/19 10:20 Dose: 5,000 unit Piperacillin Sod/Tazobactam (Sod 3.375 gm/ Dextrose) 50 mls @ 100 mls/hr IVPB Q8H-IV [facility]; Protocol Last Admin: 05/03/19 10:16 Dose: 100 mls/hr Potassium Chloride 20 meq/ (Amino Acids) 1,010 mls @ 42 mls/hr IVPB Q24H [facility] Last Admin: 05/03/19 10:16 Dose: 42 mls/hr Insulin Aspart (Novolog Vial Sliding Scale -) 1 vial SQ ACHS [facility]; Protocol Last Admin: 05/03/19 11:10 Dose: Not Given Magnesium Oxide (Mag-Ox -) 400 mg PO BID [facility] Last Admin: 05/03/19 10:19 Dose: 400 mg Miscellaneous (Duragesic Patch Waste) 1 each TD PRN PRN PRN Reason: PATCH REMOVAL Nystatin (Mycostatin Ointment -) 1 applic TP BID [facility] Last Admin: 05/03/19 10:20 Dose: 1 applic Ondansetron HCl (Zofran -) 4 mg PO Q6H PRN PRN Reason: NAUSEA Pantoprazole Sodium (Protonix Iv) 40 mg IVPUSH BID [facility] Last Admin: 05/03/19 10:19 Dose: 40 mg Potassium Phos/Sodium Phos (Phos-Nak Packet -) 1 packet PO BID [facility] Last Admin: 05/03/19 10:19 Dose: 1 packet - Objective Vital Signs: Vital Signs Temperature 98.2 F 05/03/19 08:08 Pulse Rate 87 05/03/19 08:08 Respiratory Rate 16 05/03/19 08:08 Blood Pressure 106/71 05/03/19 08:08 O2 Sat by Pulse Oximetry (%) 97 05/03/19 09:00 Constitutional: Yes: Mild Distress Cardiovascular: Yes: Regular Rate and Rhythm Respiratory: Yes: WNL Gastrointestinal: Yes: Tenderness (LUQ NO MASS OR LESION TO AREA) Musculoskeletal: Yes: Muscle Weakness Edema: No Integumentary: Yes: Other Neurological: Yes: Pre-Existing Deficit Psychiatric: Yes: Other Labs: CBC, BMP 05/01/19 07:25 05/03/19 09:05 Problem List - Problems (1) Pneumonia Code(s): J18.9 - PNEUMONIA, UNSPECIFIED ORGANISM (2) Abdominal fluid collection Code(s): R18.8 - OTHER ASCITES (3) Diabetes Code(s): E11.9 - TYPE 2 DIABETES MELLITUS WITHOUT COMPLICATIONS Qualifiers: Diabetes mellitus type: type 2 (4) Electrolyte abnormality Code(s): E87.8 - OTH DISORDERS OF ELECTROLYTE AND FLUID BALANCE, NEC (5) GI (gastrointestinal bleed) Code(s): K92.2 - GASTROINTESTINAL HEMORRHAGE, UNSPECIFIED (6) HLD (hyperlipidemia) Code(s): E78.5 - HYPERLIPIDEMIA, UNSPECIFIED (7) History of diverticulitis Code(s): Z87.19 - PERSONAL HISTORY OF OTHER DISEASES OF THE DIGESTIVE SYSTEM (8) Lung mass Code(s): R91.8 - OTHER NONSPECIFIC ABNORMAL FINDING OF LUNG FIELD (9) Stage 4 lung cancer Code(s): C34.90 - MALIGNANT NEOPLASM OF UNSP PART OF UNSP BRONCHUS OR LUNG (10) Weakness Code(s): R53.1 - WEAKNESS Assessment/Plan IV CLIMIX APPETITE IMPROVING ONCOLOGY AND NEPHROLOGY F/U APPRECIATED PAIN CONTROL ADVANCED DIRECTIVES NEED TO BE REVIEWED ABDOMINAL PAIN POSSIBLE METASTATIC DISEASE OOB TO CHAIR HEPARIN DVT PROPHYLAXIS
[2019-05-03] MEDS ORDERED: IRON SUCROSE INJECTION 200 MG in SODIUM CHLORIDE 90 ML IVPB ONE (19:15)
--- NOTE | 2019-05-03 20:51 | PN ---
Progress Note (short form) - Note Progress Note: s/p phos replacement Current Medications Acetaminophen (Tylenol -) 650 mg PO Q4H PRN PRN Reason: PAIN LEVEL 6-10 Last Admin: 04/29/19 11:27 Dose: 650 mg Fentanyl (Duragesic 50mcg Patch -) 1 patch TD Q72H [facility] Last Admin: 05/03/19 01:30 Dose: 1 patch Ferrous Sulfate (Feosol -) 325 mg PO DAILY [facility] Last Admin: 05/03/19 10:19 Dose: 325 mg Folic Acid (Folic Acid -) 1 mg PO DAILY [facility] Last Admin: 05/03/19 10:19 Dose: 1 mg Heparin Sodium (Porcine) (Heparin -) 5,000 unit SQ BID [facility] Last Admin: 05/03/19 10:20 Dose: 5,000 unit Piperacillin Sod/Tazobactam (Sod 3.375 gm/ Dextrose) 50 mls @ 100 mls/hr IVPB Q8H-IV [facility]; Protocol Last Admin: 05/03/19 17:10 Dose: 100 mls/hr Potassium Chloride 20 meq/ (Amino Acids) 1,010 mls @ 42 mls/hr IVPB Q24H [facility] Last Admin: 05/03/19 16:07 Dose: Not Given Insulin Aspart (Novolog Vial Sliding Scale -) 1 vial SQ ACHS [facility]; Protocol Last Admin: 05/03/19 16:06 Dose: Not Given Magnesium Oxide (Mag-Ox -) 400 mg PO BID [facility] Last Admin: 05/03/19 10:19 Dose: 400 mg Miscellaneous (Duragesic Patch Waste) 1 each TD PRN PRN PRN Reason: PATCH REMOVAL Nystatin (Mycostatin Ointment -) 1 applic TP BID [facility] Last Admin: 05/03/19 10:20 Dose: 1 applic Ondansetron HCl (Zofran -) 4 mg PO Q6H PRN PRN Reason: NAUSEA Pantoprazole Sodium (Protonix Iv) 40 mg IVPUSH BID [facility] Last Admin: 05/03/19 10:19 Dose: 40 mg Potassium Phos/Sodium Phos (Phos-Nak Packet -) 1 packet PO BID [facility] Last Admin: 05/03/19 10:19 Dose: 1 packet Last Vital Signs Temp Pulse Resp BP Pulse Ox 98.2 F 87 16 106/71 97 05/03/19 08:08 05/03/19 08:08 05/03/19 08:08 05/03/19 08:08 05/03/19 09:00 CBC, BMP 05/01/19 07:25 05/03/19 09:05
[2019-05-03] MEDS: ACETAMINOPHEN 325 MG TABLET (FP) PO PRN (22:12)
[2019-05-04] MEDS ORDERED: DEXTROSE 5%-WATER - 50 ML IVPB ONE ×2 (01:22→10:23)
[2019-05-04] MEDS ORDERED: PIPERACILLIN/TAZOBACTAM 3.375 GM VIAL IVPB ONE ×2 (01:22→10:23)
[2019-05-04] MEDS: PIPERACILLIN/TAZOB 3.375 GM 3.375 GM in DEXTROSE 5%-WATER - 50 ML IVPB SCH ×3 (01:26→17:47)
[2019-05-04] MEDS: INSULIN SLIDING SCALE (NOVOLOG) 1 VIAL SQ SCH ×4 (06:39→22:22)
[2019-05-04] MEDS: ACETAMINOPHEN 325 MG TABLET (FP) PO PRN (08:20)
[2019-05-04] MEDS: MAGNESIUM OXIDE 400 MG TABLET (FP) PO SCH ×2 (10:26→22:16)
[2019-05-04] MEDS: PANTOPRAZOLE SODIUM 40 MG VIAL IVPUSH SCH ×2 (10:26→22:15)
[2019-05-04] MEDS: NAPH,MB-DB/K PH,MBDB POWDER PACKET PO SCH ×2 (10:26→22:21)
[2019-05-04] MEDS: FOLIC ACID 1 MG TABLET (FP) PO SCH (10:26)
[2019-05-04] MEDS: FERROUS SO4 325 MG TABLET (FP) PO SCH (10:26)
[2019-05-04] MEDS: HEPARIN NA (PORCINE) 5,000 UNITS/ML 1ML VIAL SQ SCH ×2 (10:26→22:16)
[2019-05-04] MEDS: NYSTATIN 100000 UNIT/GM TOPICAL OINTMENT 15 GM TUBE TP SCH ×2 (10:26→22:16)
[2019-05-04] MEDS: POTASSIUM CHLORIDE 20 MEQ in AMINO ACIDS 4.25%/D5W 1,000 ML IVPB SCH ×2 (14:20→16:16)
--- NOTE | 2019-05-04 19:05 | PN ---
Progress Note, Physician Chief Complaint: NOTES REVIEWED IN PAIN ON DURAGESIC PATCH AND MORPHINE IV PRN PATIENT IS DEPRESSED AND CRYING POOR APPETITE - Current Medication List Current Medications: Active Medications Acetaminophen (Tylenol -) 650 mg PO Q4H PRN PRN Reason: PAIN LEVEL 6-10 Last Admin: 05/04/19 08:20 Dose: 650 mg Fentanyl (Duragesic 50mcg Patch -) 1 patch TD Q72H [facility] Last Admin: 05/03/19 01:30 Dose: 1 patch Ferrous Sulfate (Feosol -) 325 mg PO DAILY [facility] Last Admin: 05/04/19 10:26 Dose: 325 mg Folic Acid (Folic Acid -) 1 mg PO DAILY [facility] Last Admin: 05/04/19 10:26 Dose: 1 mg Heparin Sodium (Porcine) (Heparin -) 5,000 unit SQ BID [facility] Last Admin: 05/04/19 10:26 Dose: 5,000 unit Piperacillin Sod/Tazobactam (Sod 3.375 gm/ Dextrose) 50 mls @ 100 mls/hr IVPB Q8H-IV [facility]; Protocol Last Admin: 05/04/19 17:47 Dose: 100 mls/hr Potassium Chloride 20 meq/ (Amino Acids) 1,010 mls @ 42 mls/hr IVPB Q24H [facility] Last Admin: 05/04/19 16:16 Dose: Not Given Insulin Aspart (Novolog Vial Sliding Scale -) 1 vial SQ ACHS [facility]; Protocol Last Admin: 05/04/19 16:16 Dose: Not Given Magnesium Oxide (Mag-Ox -) 400 mg PO BID [facility] Last Admin: 05/04/19 10:26 Dose: 400 mg Miscellaneous (Duragesic Patch Waste) 1 each TD PRN PRN PRN Reason: PATCH REMOVAL Morphine Sulfate (Morphine Sulfate) 2 mg IVPUSH Q6H PRN PRN Reason: PAIN LEVEL 6-10 Nystatin (Mycostatin Ointment -) 1 applic TP BID [facility] Last Admin: 05/04/19 10:26 Dose: 1 applic Ondansetron HCl (Zofran -) 4 mg PO Q6H PRN PRN Reason: NAUSEA Pantoprazole Sodium (Protonix Iv) 40 mg IVPUSH BID [facility] Last Admin: 05/04/19 10:26 Dose: 40 mg Potassium Phos/Sodium Phos (Phos-Nak Packet -) 1 packet PO BID [facility] Last Admin: 10/13/19 10:26 Dose: 1 packet - Objective Vital Signs: Vital Signs Temperature 98.8 F 05/04/19 14:28 Pulse Rate 87 05/04/19 14:28 Respiratory Rate 18 05/04/19 14:28 Blood Pressure 111/59 L 05/04/19 14:28 O2 Sat by Pulse Oximetry (%) 96 05/04/19 09:00 Constitutional: Yes: Mild Distress Cardiovascular: Yes: Regular Rate and Rhythm Respiratory: Yes: Diminished Gastrointestinal: Yes: Tenderness Genitourinary: Yes: Incontinence Edema: No Integumentary: Yes: WNL Neurological: Yes: Pre-Existing Deficit Psychiatric: Yes: Other Labs: CBC, BMP 05/01/19 07:25 05/03/19 09:05 Problem List - Problems (1) Pneumonia Code(s): J18.9 - PNEUMONIA, UNSPECIFIED ORGANISM (2) Abdominal fluid collection Code(s): R18.8 - OTHER ASCITES (3) Diabetes Code(s): E11.9 - TYPE 2 DIABETES MELLITUS WITHOUT COMPLICATIONS Qualifiers: Diabetes mellitus type: type 2 (4) Electrolyte abnormality Code(s): E87.8 - OTH DISORDERS OF ELECTROLYTE AND FLUID BALANCE, NEC (5) GI (gastrointestinal bleed) Code(s): K92.2 - GASTROINTESTINAL HEMORRHAGE, UNSPECIFIED (6) HLD (hyperlipidemia) Code(s): E78.5 - HYPERLIPIDEMIA, UNSPECIFIED (7) History of diverticulitis Code(s): Z87.19 - PERSONAL HISTORY OF OTHER DISEASES OF THE DIGESTIVE SYSTEM (8) Lung mass Code(s): R91.8 - OTHER NONSPECIFIC ABNORMAL FINDING OF LUNG FIELD (9) Stage 4 lung cancer Code(s): C34.90 - MALIGNANT NEOPLASM OF UNSP PART OF UNSP BRONCHUS OR LUNG (10) Weakness Code(s): R53.1 - WEAKNESS Assessment/Plan PALLIATIVE CARE TEAM FOLLOW UP RECOMMENDING HOSPICE OR SNF PLACEMENT PAIN CONTROL START REMERON FOR INCREASE IN APPETITE AND SLEEP AID CHECK LABS IN AM OOB TO CHAIR POOR OVERALL PROGNOSIS ADVANCED DIRECTIVE NEEDS TO BE REVIEWED WITH PATIENT AND HER FAMILY
[2019-05-04] MEDS: MIRTAZAPINE 15 MG TABLET (FP) PO SCH (22:16)
[2019-05-05] MEDS ORDERED: PIPERACILLIN/TAZOBACTAM 3.375 GM VIAL IVPB ONE ×2 (01:27→10:45)
[2019-05-05] MEDS ORDERED: DEXTROSE 5%-WATER - 50 ML IVPB ONE ×2 (01:27→10:45)
[2019-05-05] MEDS: PIPERACILLIN/TAZOB 3.375 GM 3.375 GM in DEXTROSE 5%-WATER - 50 ML IVPB SCH ×2 (01:39→10:51)
[2019-05-05] MEDS: INSULIN SLIDING SCALE (NOVOLOG) 1 VIAL SQ SCH ×4 (06:09→22:18)
[2019-05-05] MEDS: MORPHINE SULFATE 2 MG/ML VIAL IVPUSH PRN ×3 (08:09→21:51)
[2019-05-05 08:27] LABS: HEMATOCRIT 26.6 % (32.4-45.2); HEMOGLOBIN 8.7 GM/dL (10.7-15.3); MCH 27.8 pg (25.7-33.7); MCHC 32.9 g/dl (32.0-36.0); MEAN CELL VOLUME 84.7 fl (80-96); MEAN PLT VOLUME 7.1 fl (7.5-11.1); PLATELET COUNT 441 K/MM3 (134-434); RBC 3.14 M/mm3 (3.60-5.2); RDW 19.5 % (11.6-15.6); WHITE BLOOD COUNT 15.2 K/mm3 (4.0-10.0)
[2019-05-05 08:54] LABS: BLOOD UREA NITROGEN 11.8 mg/dL (7-18); CALCIUM 8.5 mg/dL (8.5-10.1); CREATININE 0.5 mg/dL (0.55-1.3); MAGNESIUM 1.8 mg/dL (1.8-2.4); POTASSIUM 4.1 mmol/L (3.5-5.1)
[2019-05-05] MEDS: HEPARIN NA (PORCINE) 5,000 UNITS/ML 1ML VIAL SQ SCH ×2 (09:31→21:47)
[2019-05-05] MEDS: PANTOPRAZOLE SODIUM 40 MG VIAL IVPUSH SCH ×2 (09:31→21:46)
[2019-05-05] MEDS: MAGNESIUM OXIDE 400 MG TABLET (FP) PO SCH ×2 (09:32→21:46)
[2019-05-05] MEDS: NAPH,MB-DB/K PH,MBDB POWDER PACKET PO SCH ×2 (09:32→21:46)
[2019-05-05] MEDS: FERROUS SO4 325 MG TABLET (FP) PO SCH (09:32)
[2019-05-05] MEDS: FOLIC ACID 1 MG TABLET (FP) PO SCH (09:32)
[2019-05-05] MEDS: NYSTATIN 100000 UNIT/GM TOPICAL OINTMENT 15 GM TUBE TP SCH ×2 (09:33→21:47)
[2019-05-05] MEDS ORDERED: IRON SUCROSE INJECTION 200 MG in SODIUM CHLORIDE 90 ML IVPB ONE (10:00)
--- NOTE | 2019-05-05 11:53 | DS ---
Physical Examination Vital Signs: Vital Signs Temperature 98.4 F 05/05/19 09:00 Pulse Rate 91 H 05/05/19 09:00 Respiratory Rate 18 05/05/19 09:00 Blood Pressure 124/61 05/05/19 09:00 O2 Sat by Pulse Oximetry (%) 95 05/05/19 09:00 Findings/Remarks: Laboratory Tests 04/26/19 04/26/19 04/26/19 16:00 16:00 16:00 WBC 13.0 H RBC 3.85 Hgb 10.7 Hct 33.2 D MCV 86.2 MCH 27.7 MCHC 32.2 RDW 19.2 H Plt Count 483 H MPV 7.0 L Absolute Neuts (auto) 8.9 H Neutrophils % 68.3 Lymphocytes % 21.3 Monocytes % 7.1 Eosinophils % 2.8 Basophils % 0.5 Nucleated RBC % 0 ESR Sodium 138 Potassium 3.9 Chloride 100 Carbon Dioxide 30 Anion Gap 8 BUN 4.3 L Creatinine 0.3 L Est GFR (CKD-EPI)AfAm 128.00 Est GFR (CKD-EPI)NonAf 110.44 POC Glucometer Random Glucose 84 Hemoglobin A1c % Lactic Acid Calcium 8.4 L Phosphorus Magnesium Iron TIBC Iron Saturation Unsaturated IBC Ferritin Total Bilirubin 0.3 GGT AST 27 ALT 13 Alkaline Phosphatase 145 H Creatine Kinase 16 L Troponin I < 0.02 C-Reactive Protein Total Protein 7.0 Albumin 2.2 L Prealbumin Total Amylase Lipase 46 L Vitamin B12 Serum Folate 04/26/19 04/26/19 04/27/19 16:00 22:51 05:40 WBC RBC Hgb Hct MCV MCH MCHC RDW Plt Count MPV Absolute Neuts (auto) Neutrophils % Lymphocytes % Monocytes % Eosinophils % Basophils % Nucleated RBC % ESR 84 H Sodium Potassium Chloride Carbon Dioxide Anion Gap BUN Creatinine Est GFR (CKD-EPI)AfAm Est GFR (CKD-EPI)NonAf POC Glucometer 100 Random Glucose Hemoglobin A1c % Lactic Acid 1.1 Calcium Phosphorus Magnesium Iron TIBC Iron Saturation Unsaturated IBC Ferritin Total Bilirubin GGT AST ALT Alkaline Phosphatase Creatine Kinase Troponin I C-Reactive Protein Total Protein Albumin Prealbumin Total Amylase Lipase Vitamin B12 Serum Folate 04/27/19 04/27/19 04/27/19 06:00 06:35 06:35 WBC 12.4 H RBC 3.44 L Hgb 9.5 L Hct 29.3 L MCV 85.3 MCH 27.6 MCHC 32.4 RDW 19.0 H Plt Count 418 MPV 7.1 L Absolute Neuts (auto) Neutrophils % Lymphocytes % Monocytes % Eosinophils % Basophils % Nucleated RBC % ESR Sodium Potassium Chloride Carbon Dioxide Anion Gap BUN Creatinine Est GFR (CKD-EPI)AfAm Est GFR (CKD-EPI)NonAf POC Glucometer 83 Random Glucose Hemoglobin A1c % Lactic Acid Calcium Phosphorus Magnesium Iron TIBC Iron Saturation Unsaturated IBC Ferritin Total Bilirubin GGT AST ALT Alkaline Phosphatase Creatine Kinase Troponin I C-Reactive Protein Total Protein Albumin Prealbumin Total Amylase Lipase 37 L Vitamin B12 Serum Folate 04/27/19 04/27/19 04/27/19 08:40 11:10 16:19 WBC RBC Hgb Hct MCV MCH MCHC RDW Plt Count MPV Absolute Neuts (auto) Neutrophils % Lymphocytes % Monocytes % Eosinophils % Basophils % Nucleated RBC % ESR Sodium 138 Potassium 3.8 Chloride 104 Carbon Dioxide 29 Anion Gap 5 L BUN 2.9 L* Creatinine 0.3 L Est GFR (CKD-EPI)AfAm 128.00 Est GFR (CKD-EPI)NonAf 110.44 POC Glucometer 77 73 Random Glucose 85 Hemoglobin A1c % Lactic Acid Calcium 8.2 L Phosphorus Magnesium 2.0 Iron TIBC Iron Saturation Unsaturated IBC Ferritin Total Bilirubin 0.2 GGT 66 AST 19 ALT 10 L Alkaline Phosphatase 135 H Creatine Kinase Troponin I C-Reactive Protein 8.8 H Total Protein 6.8 Albumin 2.2 L Prealbumin 6.3 L Total Amylase Lipase Vitamin B12 1754 H Serum Folate 20 H 04/27/19 04/28/19 04/28/19 21:55 06:03 07:25 WBC 14.4 H RBC 3.69 Hgb 10.4 L Hct 31.8 L MCV 86.1 MCH 28.1 MCHC 32.6 RDW 19.4 H Plt Count 476 H MPV 7.2 L Absolute Neuts (auto) 10.1 H Neutrophils % 70.4 Lymphocytes % 18.1 Monocytes % 6.0 Eosinophils % 4.3 Basophils % 1.2 Nucleated RBC % 0 ESR Sodium Potassium Chloride Carbon Dioxide Anion Gap BUN Creatinine Est GFR (CKD-EPI)AfAm Est GFR (CKD-EPI)NonAf POC Glucometer 79 65 Random Glucose Hemoglobin A1c % Lactic Acid Calcium Phosphorus Magnesium Iron TIBC Iron Saturation Unsaturated IBC Ferritin Total Bilirubin GGT AST ALT Alkaline Phosphatase Creatine Kinase Troponin I C-Reactive Protein Total Protein Albumin Prealbumin Total Amylase Lipase Vitamin B12 Serum Folate 04/28/19 04/28/19 04/28/19 07:25 07:25 11:14 WBC RBC Hgb Hct MCV MCH MCHC RDW Plt Count MPV Absolute Neuts (auto) Neutrophils % Lymphocytes % Monocytes % Eosinophils % Basophils % Nucleated RBC % ESR Sodium 140 Potassium 3.8 Chloride 105 Carbon Dioxide 26 Anion Gap 9 BUN 3.7 L Creatinine 0.3 L Est GFR (CKD-EPI)AfAm 128.00 Est GFR (CKD-EPI)NonAf 110.44 POC Glucometer 76 Random Glucose 67 L Hemoglobin A1c % 5.4 Lactic Acid Calcium 7.9 L Phosphorus Magnesium Iron TIBC Iron Saturation Unsaturated IBC Ferritin Total Bilirubin 0.4 GGT AST 16 ALT 7 L Alkaline Phosphatase 128 H Creatine Kinase Troponin I C-Reactive Protein Total Protein 6.4 Albumin 2.0 L Prealbumin Total Amylase Lipase Vitamin B12 Serum Folate 04/28/19 04/28/19 04/29/19 17:09 21:58 06:54 WBC RBC Hgb Hct MCV MCH MCHC RDW Plt Count MPV Absolute Neuts (auto) Neutrophils % Lymphocytes % Monocytes % Eosinophils % Basophils % Nucleated RBC % ESR Sodium Potassium Chloride Carbon Dioxide Anion Gap BUN Creatinine Est GFR (CKD-EPI)AfAm Est GFR (CKD-EPI)NonAf POC Glucometer 72 86 82 Random Glucose Hemoglobin A1c % Lactic Acid Calcium Phosphorus Magnesium Iron TIBC Iron Saturation Unsaturated IBC Ferritin Total Bilirubin GGT AST ALT Alkaline Phosphatase Creatine Kinase Troponin I C-Reactive Protein Total Protein Albumin Prealbumin Total Amylase Lipase Vitamin B12 Serum Folate 04/29/19 04/29/19 04/29/19 11:37 17:38 20:54 WBC RBC Hgb Hct MCV MCH MCHC RDW Plt Count MPV Absolute Neuts (auto) Neutrophils % Lymphocytes % Monocytes % Eosinophils % Basophils % Nucleated RBC % ESR Sodium Potassium Chloride Carbon Dioxide Anion Gap BUN Creatinine Est GFR (CKD-EPI)AfAm Est GFR (CKD-EPI)NonAf POC Glucometer 111 160 78 Random Glucose Hemoglobin A1c % Lactic Acid Calcium Phosphorus Magnesium Iron TIBC Iron Saturation Unsaturated IBC Ferritin Total Bilirubin GGT AST ALT Alkaline Phosphatase Creatine Kinase Troponin I C-Reactive Protein Total Protein Albumin Prealbumin Total Amylase Lipase Vitamin B12 Serum Folate 04/30/19 04/30/19 04/30/19 06:22 06:54 06:54 WBC 12.0 H RBC 3.33 L Hgb 9.3 L Hct 28.5 L MCV 85.5 MCH 27.9 MCHC 32.7 RDW 19.4 H Plt Count 430 MPV 7.0 L Absolute Neuts (auto) Neutrophils % Lymphocytes % Monocytes % Eosinophils % Basophils % Nucleated RBC % ESR Sodium 138 Potassium 3.1 L Chloride 105 Carbon Dioxide 27 Anion Gap 6 L BUN < 1.0 L* Creatinine 0.3 L Est GFR (CKD-EPI)AfAm 128.00 Est GFR (CKD-EPI)NonAf 110.44 POC Glucometer 82 Random Glucose 69 L Hemoglobin A1c % Lactic Acid Calcium 7.3 L Phosphorus Magnesium Iron TIBC Iron Saturation Unsaturated IBC Ferritin Total Bilirubin 0.5 GGT AST 12 L ALT < 6 L Alkaline Phosphatase 107 Creatine Kinase Troponin I C-Reactive Protein Total Protein 5.5 L Albumin 1.7 L Prealbumin Total Amylase Lipase Vitamin B12 Serum Folate 04/30/19 04/30/19 04/30/19 11:56 17:00 21:00 WBC RBC Hgb Hct MCV MCH MCHC RDW Plt Count MPV Absolute Neuts (auto) Neutrophils % Lymphocytes % Monocytes % Eosinophils % Basophils % Nucleated RBC % ESR Sodium Potassium Chloride Carbon Dioxide Anion Gap BUN Creatinine Est GFR (CKD-EPI)AfAm Est GFR (CKD-EPI)NonAf POC Glucometer 98 84 118 Random Glucose Hemoglobin A1c % Lactic Acid Calcium Phosphorus Magnesium Iron TIBC Iron Saturation Unsaturated IBC Ferritin Total Bilirubin GGT AST ALT Alkaline Phosphatase Creatine Kinase Troponin I C-Reactive Protein Total Protein Albumin Prealbumin Total Amylase Lipase Vitamin B12 Serum Folate 05/01/19 05/01/19 05/01/19 06:17 07:25 07:25 WBC 11.9 H RBC 3.44 L Hgb 9.4 L Hct 29.5 L MCV 85.7 MCH 27.4 MCHC 32.0 RDW 20.0 H Plt Count 440 H MPV 7.1 L Absolute Neuts (auto) Neutrophils % Lymphocytes % Monocytes % Eosinophils % Basophils % Nucleated RBC % ESR Sodium 138 Potassium 3.8 Chloride 106 Carbon Dioxide 28 Anion Gap 4 L BUN 1.9 L* Creatinine 0.4 L Est GFR (CKD-EPI)AfAm 116.44 Est GFR (CKD-EPI)NonAf 100.47 POC Glucometer 116 Random Glucose 104 Hemoglobin A1c % Lactic Acid Calcium 7.7 L Phosphorus 1.6 L Magnesium 1.6 L Iron TIBC Iron Saturation Unsaturated IBC Ferritin Total Bilirubin 0.2 GGT AST 13 L ALT < 6 L Alkaline Phosphatase 106 Creatine Kinase Troponin I C-Reactive Protein Total Protein 5.6 L Albumin 1.7 L Prealbumin Total Amylase Lipase Vitamin B12 Serum Folate 05/01/19 05/01/19 05/01/19 11:04 16:22 22:14 WBC RBC Hgb Hct MCV MCH MCHC RDW Plt Count MPV Absolute Neuts (auto) Neutrophils % Lymphocytes % Monocytes % Eosinophils % Basophils % Nucleated RBC % ESR Sodium Potassium Chloride Carbon Dioxide Anion Gap BUN Creatinine Est GFR (CKD-EPI)AfAm Est GFR (CKD-EPI)NonAf POC Glucometer 183 172 170 Random Glucose Hemoglobin A1c % Lactic Acid Calcium Phosphorus Magnesium Iron TIBC Iron Saturation Unsaturated IBC Ferritin Total Bilirubin GGT AST ALT Alkaline Phosphatase Creatine Kinase Troponin I C-Reactive Protein Total Protein Albumin Prealbumin Total Amylase Lipase Vitamin B12 Serum Folate 05/02/19 05/02/19 05/02/19 06:08 08:25 16:32 WBC RBC Hgb Hct MCV MCH MCHC RDW Plt Count MPV Absolute Neuts (auto) Neutrophils % Lymphocytes % Monocytes % Eosinophils % Basophils % Nucleated RBC % ESR Sodium 137 Potassium 3.6 Chloride 100 Carbon Dioxide 28 Anion Gap 8 BUN 7.9 Creatinine 0.4 L Est GFR (CKD-EPI)AfAm 116.44 Est GFR (CKD-EPI)NonAf 100.47 POC Glucometer 151 133 Random Glucose 136 H Hemoglobin A1c % Lactic Acid Calcium 7.8 L Phosphorus 1.7 L Magnesium 1.5 L Iron TIBC Iron Saturation Unsaturated IBC Ferritin Total Bilirubin 1.4 H GGT AST 8 L ALT 6 L Alkaline Phosphatase 107 Creatine Kinase Troponin I C-Reactive Protein Total Protein 5.9 L Albumin 1.8 L Prealbumin Total Amylase 19 L Lipase 63 L Vitamin B12 Serum Folate 05/02/19 05/03/19 05/03/19 21:45 06:10 09:05 WBC RBC Hgb Hct MCV MCH MCHC RDW Plt Count MPV Absolute Neuts (auto) Neutrophils % Lymphocytes % Monocytes % Eosinophils % Basophils % Nucleated RBC % ESR Sodium 135 L Potassium 3.8 Chloride 100 Carbon Dioxide 28 Anion Gap 6 L BUN 9.6 Creatinine 0.4 L Est GFR (CKD-EPI)AfAm 116.44 Est GFR (CKD-EPI)NonAf 100.47 POC Glucometer 103 125 Random Glucose 119 H Hemoglobin A1c % Lactic Acid Calcium 8.6 Phosphorus 3.1 Magnesium 1.7 L Iron TIBC Iron Saturation Unsaturated IBC Ferritin Total Bilirubin 0.3 GGT AST 14 L ALT 7 L Alkaline Phosphatase 122 H Creatine Kinase Troponin I C-Reactive Protein Total Protein 7.1 Albumin 2.1 L Prealbumin Total Amylase Lipase Vitamin B12 Serum Folate 05/03/19 05/03/19 05/03/19 09:05 11:10 16:06 WBC RBC Hgb Hct MCV MCH MCHC RDW Plt Count MPV Absolute Neuts (auto) Neutrophils % Lymphocytes % Monocytes % Eosinophils % Basophils % Nucleated RBC % ESR Sodium Potassium Chloride Carbon Dioxide Anion Gap BUN Creatinine Est GFR (CKD-EPI)AfAm Est GFR (CKD-EPI)NonAf POC Glucometer 162 175 Random Glucose Hemoglobin A1c % Lactic Acid Calcium Phosphorus Magnesium Iron 33 L TIBC 163 L Iron Saturation 20 Unsaturated IBC 130 L Ferritin 289.2 Total Bilirubin GGT AST ALT Alkaline Phosphatase Creatine Kinase Troponin I C-Reactive Protein Total Protein Albumin Prealbumin Total Amylase Lipase Vitamin B12 Serum Folate 05/03/19 05/04/19 05/04/19 22:02 06:38 11:05 WBC RBC Hgb Hct MCV MCH MCHC RDW Plt Count MPV Absolute Neuts (auto) Neutrophils % Lymphocytes % Monocytes % Eosinophils % Basophils % Nucleated RBC % ESR Sodium Potassium Chloride Carbon Dioxide Anion Gap BUN Creatinine Est GFR (CKD-EPI)AfAm Est GFR (CKD-EPI)NonAf POC Glucometer 149 127 198 Random Glucose Hemoglobin A1c % Lactic Acid Calcium Phosphorus Magnesium Iron TIBC Iron Saturation Unsaturated IBC Ferritin Total Bilirubin GGT AST ALT Alkaline Phosphatase Creatine Kinase Troponin I C-Reactive Protein Total Protein Albumin Prealbumin Total Amylase Lipase Vitamin B12 Serum Folate 05/04/19 05/04/19 05/05/19 16:15 22:21 05:50 WBC RBC Hgb Hct MCV MCH MCHC RDW Plt Count MPV Absolute Neuts (auto) Neutrophils % Lymphocytes % Monocytes % Eosinophils % Basophils % Nucleated RBC % ESR Sodium Potassium Chloride Carbon Dioxide Anion Gap BUN Creatinine Est GFR (CKD-EPI)AfAm Est GFR (CKD-EPI)NonAf POC Glucometer 153 132 120 Random Glucose Hemoglobin A1c % Lactic Acid Calcium Phosphorus Magnesium Iron TIBC Iron Saturation Unsaturated IBC Ferritin Total Bilirubin GGT AST ALT Alkaline Phosphatase Creatine Kinase Troponin I C-Reactive Protein Total Protein Albumin Prealbumin Total Amylase Lipase Vitamin B12 Serum Folate 05/05/19 05/05/1919 07:20 07:20 10:56 WBC 15.2 H RBC 3.14 L Hgb 8.7 L Hct 26.6 L MCV 84.7 MCH 27.8 MCHC 32.9 RDW 19.5 H Plt Count 441 H MPV 7.1 L Absolute Neuts (auto) Neutrophils % Lymphocytes % Monocytes % Eosinophils % Basophils % Nucleated RBC % ESR Sodium 132 L Potassium 4.1 Chloride 98 Carbon Dioxide 27 Anion Gap 7 L BUN 11.8 Creatinine 0.5 L Est GFR (CKD-EPI)AfAm 108.20 Est GFR (CKD-EPI)NonAf 93.36 POC Glucometer 122 Random Glucose 114 H Hemoglobin A1c % Lactic Acid Calcium 8.5 Phosphorus Magnesium 1.8 Iron TIBC Iron Saturation Unsaturated IBC Ferritin Total Bilirubin GGT AST ALT Alkaline Phosphatase Creatine Kinase Troponin I C-Reactive Protein Total Protein Albumin Prealbumin Total Amylase Lipase Vitamin B12 Serum Folate Active Medications Generic Name Dose Route Start Last Admin Trade Name Freq PRN Reason Stop Dose Admin Acetaminophen 650 mg 04/26/19 22:41 05/04/19 08:20 Tylenol - PO 650 mg Q4H PRN Administration PAIN LEVEL 6-10 Fentanyl 1 patch 04/26/19 22:45 05/03/19 01:30 Duragesic 50mcg Patch - TD 1 patch Q72H [facility] Administration Ferrous Sulfate 325 mg 04/27/19 10:00 05/05/19 09:32 Feosol - PO 325 mg DAILY LYNN Administration Folic Acid 1 mg 04/27/19 10:00 05/05/19 09:32 Folic Acid - PO 1 mg DAILY LYNN Administration Heparin Sodium (Porcine) 5,000 unit 04/27/19 10:00 05/05/19 09:31 Heparin - SQ 5,000 unit BID LYNN Administration Piperacillin Sod/Tazobactam 50 mls @ 100 mls/hr 04/29/19 02:00 05/05/19 10:51 Sod 3.375 gm/ Dextrose IVPB 100 mls/hr Q8H-IV LYNN Administration Protocol Potassium Chloride 20 meq/ 1,010 mls @ 42 mls/hr 05/02/19 17:00 05/04/19 16: 16 Amino Acids IVPB Not Given Q24H LYNN Insulin Aspart 1 vial 04/27/19 07:00 05/05/19 10:57 Novolog Vial Sliding Scale - SQ Not Given ACHS LYNN Protocol Magnesium Oxide 400 mg 05/01/19 22:00 05/05/19 09:32 Mag-Ox - PO 400 mg BID LYNN Administration Mirtazapine 7.5 mg 05/04/19 22:00 05/04/19 22:16 Remeron - PO 7.5 mg HS LYNN Administration Miscellaneous 1 each 04/26/19 22:56 Duragesic Patch Waste TD PRN PRN PATCH REMOVAL Morphine Sulfate 2 mg 05/04/19 12:26 05/05/19 08:09 Morphine Sulfate IVPUSH 2 mg Q6H PRN Administration PAIN LEVEL 6-10 Nystatin 1 applic 04/29/19 22:00 05/05/19 09:33 Mycostatin Ointment - TP 1 applic BID LYNN Administration Ondansetron HCl 4 mg 04/29/19 15:38 Zofran - PO Q6H PRN NAUSEA Pantoprazole Sodium 40 mg 04/27/19 14:57 05/05/19 09:31 Protonix Iv IVPUSH 40 mg BID LYNN Administration Potassium Phos/Sodium Phos 1 packet 05/01/19 22:00 05/05/19 09:32 Phos-Nak Packet - PO 1 packet BID LYNN Administration Microbiology 04/26/19 16:00 Blood - Peripheral Venous Blood Culture - Final NO GROWTH AFTER 5 DAYS INCUBATION 04/26/19 16:00 Blood - Peripheral Venous Blood Culture - Final NO GROWTH AFTER 5 DAYS INCUBATION 04/27/19 07:00 Urine - Urine Clean Catch Urine Culture - Final Group D Strep Or Entero Coccus Constitutional: Yes: No Distress, Calm Eyes: Yes: Conjunctiva Clear HENT: Yes: Atraumatic Cardiovascular: Yes: Regular Rate and Rhythm Respiratory: Yes: Regular, CTA Bilaterally Gastrointestinal: Yes: Normal Bowel Sounds, Soft Renal/: Yes: Incontinence Musculoskeletal: Yes: Muscle Weakness Extremities: Yes: Other (pain and edema R hand) Edema: Yes (R hand) Neurological: Yes: Alert, Pre-Existing Deficit Psychiatric: Yes: Alert Labs: CBC, BMP 05/05/19 07:20 05/05/19 07:20 Microbiology 04/26/19 16:00 Blood - Peripheral Venous Blood Culture - Final NO GROWTH AFTER 5 DAYS INCUBATION 04/26/19 16:00 Blood - Peripheral Venous Blood Culture - Final NO GROWTH AFTER 5 DAYS INCUBATION 04/27/19 07:00 Urine - Urine Clean Catch Urine Culture - Final Group D Strep Or Entero Coccus Discharge Summary Problems reviewed: Yes Reason For Visit: DIVERTICULITIS Current Active Problems Acute diverticulitis (Acute) Electrolyte abnormality (Acute) Nausea (Acute) Pneumonia (Acute) Hospital Course: Patient is a 79 y/o female with past history of Metastatic Lung CA on Keytuda and palliative radiation, HLD, DM, SIADH, Chronic Abdominal Pain , and frequent UTIs. She presented to hospital after 1 week mid-epigastric/left sided abdominal pain. Pain has been progressively getting worse and described as throbbing. Patient was treated with IV antibiotics and started on PPI and pain has improved. Completed antibiotic course. Condition: Fair - Instructions Diet, Activity, Other Instructions: follow up [facility] PMD in 1 week follow up [facility] oncology as scheduled continue with medication as prescribed return to ER if develop severe pain, respiratory distress, chest pain, altered mental status Referrals: Lauro Donahue [Primary Care Provider] - Usha Pollack MD [Staff Physician] - Disposition: [facility] - Home Medications Comprehensive Discharge Medication List: Ambulatory Orders Rosuvastatin [Crestor -] 10 mg PO DAILY 07/25/18 Folic Acid - 1 mg PO DAILY #30 tablet 07/31/18 Ferrous Sulfate [Feosol] 325 mg PO DAILY #30 ud 02/06/19 FENTANYL 50mcg PATCH [DURAGESIC 50 mcg PATCH -] 1 patch TD Q72H #10 patch.[id number] MDD 1 04/09/19 Polyethylene Glycol 3350 [Glycolax] 17 gm PO DAILY 04/26/19
[2019-05-05] MEDS: POTASSIUM CHLORIDE 20 MEQ in AMINO ACIDS 4.25%/D5W 1,000 ML IVPB SCH ×2 (14:24→16:34)
[2019-05-05] MEDS ORDERED: COLCHICINE 0.6 MG CAP PO ONE (15:24)
--- NOTE | 2019-05-05 15:24 | PN ---
Progress Note, Physician History of Present Illness: Pt seen and examined at bedside. She complains of left hand pain. - Current Medication List Current Medications: Active Medications Acetaminophen (Tylenol -) 650 mg PO Q4H PRN PRN Reason: PAIN LEVEL 6-10 Last Admin: 05/04/19 08:20 Dose: 650 mg Fentanyl (Duragesic 50mcg Patch -) 1 patch TD Q72H [facility] Last Admin: 05/03/19 01:30 Dose: 1 patch Ferrous Sulfate (Feosol -) 325 mg PO DAILY [facility] Last Admin: 05/05/19 09:32 Dose: 325 mg Folic Acid (Folic Acid -) 1 mg PO DAILY [facility] Last Admin: 05/05/19 09:32 Dose: 1 mg Heparin Sodium (Porcine) (Heparin -) 5,000 unit SQ BID [facility] Last Admin: 05/05/19 09:31 Dose: 5,000 unit Piperacillin Sod/Tazobactam (Sod 3.375 gm/ Dextrose) 50 mls @ 100 mls/hr IVPB Q8H-IV [facility]; Protocol Last Admin: 05/05/19 10:51 Dose: 100 mls/hr Potassium Chloride 20 meq/ (Amino Acids) 1,010 mls @ 42 mls/hr IVPB Q24H [facility] Last Admin: 05/05/19 14:24 Dose: 42 mls/hr Insulin Aspart (Novolog Vial Sliding Scale -) 1 vial SQ ACHS [facility]; Protocol Last Admin: 05/05/19 10:57 Dose: Not Given Magnesium Oxide (Mag-Ox -) 400 mg PO BID [facility] Last Admin: 05/05/19 09:32 Dose: 400 mg Mirtazapine (Remeron -) 7.5 mg PO HS [facility] Last Admin: 05/04/19 22:16 Dose: 7.5 mg Miscellaneous (Duragesic Patch Waste) 1 each TD PRN PRN PRN Reason: PATCH REMOVAL Morphine Sulfate (Morphine Sulfate) 2 mg IVPUSH Q6H PRN PRN Reason: PAIN LEVEL 6-10 Last Admin: 05/05/19 14:23 Dose: 2 mg Nystatin (Mycostatin Ointment -) 1 applic TP BID [facility] Last Admin: 05/05/19 09:33 Dose: 1 applic Ondansetron HCl (Zofran -) 4 mg PO Q6H PRN PRN Reason: NAUSEA Pantoprazole Sodium (Protonix Iv) 40 mg IVPUSH BID [facility] Last Admin: 05/05/19 09:31 Dose: 40 mg Potassium Phos/Sodium Phos (Phos-Nak Packet -) 1 packet PO BID [facility] Last Admin: 05/05/19 09:32 Dose: 1 packet - Objective Vital Signs: Vital Signs Temperature 98.0 F 05/05/19 15:17 Pulse Rate 89 05/05/19 15:17 Respiratory Rate 18 05/05/19 15:17 Blood Pressure 157/88 05/05/19 15:17 O2 Sat by Pulse Oximetry (%) 95 05/05/19 09:00 Constitutional: Yes: Calm Eyes: Yes: Conjunctiva Clear HENT: Yes: Atraumatic Cardiovascular: Yes: S1, S2 Respiratory: Yes: CTA Bilaterally Gastrointestinal: Yes: Soft Genitourinary: Yes: WNL Musculoskeletal: Yes: Other (left hand pain) Edema: No Neurological: Yes: Oriented Psychiatric: Yes: Oriented Labs: CBC, BMP 05/05/19 07:20 05/05/19 07:20 Assessment/Plan Current Medications Generic Name Dose Route Start Last Admin Trade Name Freq PRN Reason Stop Dose Admin Acetaminophen 650 mg 04/26/19 22:41 05/04/19 08:20 Tylenol - PO 650 mg Q4H PRN Administration PAIN LEVEL 6-10 Fentanyl 1 patch 04/26/19 22:45 05/03/19 01:30 Duragesic 50mcg Patch - TD 1 patch Q72H LYNN Administration Ferrous Sulfate 325 mg 04/27/19 10:00 05/05/19 09:32 Feosol - PO 325 mg DAILY LYNN Administration Folic Acid 1 mg 04/27/19 10:00 05/05/19 09:32 Folic Acid - PO 1 mg DAILY LYNN Administration Heparin Sodium (Porcine) 5,000 unit 04/27/19 10:00 05/05/19 09:31 Heparin - SQ 5,000 unit BID LYNN Administration Piperacillin Sod/Tazobactam 50 mls @ 100 mls/hr 04/29/19 02:00 05/05/19 10:51 Sod 3.375 gm/ Dextrose IVPB 100 mls/hr Q8H-IV LYNN Administration Protocol Potassium Chloride 20 meq/ 1,010 mls @ 42 mls/hr 05/02/19 17:00 05/05/19 14: 24 Amino Acids IVPB 42 mls/hr Q24H LYNN Administration Insulin Aspart 1 vial 04/27/19 07:00 05/05/19 10:57 Novolog Vial Sliding Scale - SQ Not Given ACHS [facility] Protocol Magnesium Oxide 400 mg 05/01/19 22:00 05/05/19 09:32 Mag-Ox - PO 400 mg BID LYNN Administration Mirtazapine 7.5 mg 05/04/19 22:00 05/04/19 22:16 Remeron - PO 7.5 mg HS LYNN Administration Miscellaneous 1 each 04/26/19 22:56 Duragesic Patch Waste TD PRN PRN PATCH REMOVAL Morphine Sulfate 2 mg 05/04/19 12:26 05/05/19 14:23 Morphine Sulfate IVPUSH 2 mg Q6H PRN Administration PAIN LEVEL 6-10 Nystatin 1 applic 04/29/19 22:00 05/05/19 09:33 Mycostatin Ointment - TP 1 applic BID LYNN Administration Ondansetron HCl 4 mg 04/29/19 15:38 Zofran - PO Q6H PRN NAUSEA Pantoprazole Sodium 40 mg 04/27/19 14:57 05/05/19 09:31 Protonix Iv IVPUSH 40 mg BID LYNN Administration Potassium Phos/Sodium Phos 1 packet 05/01/19 22:00 05/05/19 09:32 Phos-Nak Packet - PO 1 packet BID LYNN Administration Impression 1. hypokalemia 2. lung cancer 3. DM 4. malnutrition 5. pna 6. malnutrition 7. r/o gout Plan - can d/c clinimix - encourage po intake - can give clchicine - cont supplements - monitor lytes
--- NOTE | 2019-05-05 20:41 | PN ---
Progress Note (short form) - Note Progress Note: Patient seen and examined Reports epigastric pain, poor appetite, weakness AFVSS Cor: RSR, No murmurs, No gallops Lungs: Clear to P&A Abd: Soft, Normal bowel sounds, No organomegaly Ext:No significant edema Labs/Meds reviewed A/P 79 year old, danish-speaking female with a history of metastatic lung CA, hyperlipidemia, diabetes mellitus, SIADH, frequent UTIs admitted for abdominal pain secondary to sigmoid diverticulitis Metastatic lung cancer, adenoca -- with RLL lung mass/ supraclavicular adenopathy/abdominal wall mass/ sacral metastasis Mutation analyisis negative PDL1-50% s/p keytruda , followed by keytruda/carbo/alimta, and more recently abraxane Received palliative RT to abdominal wall mass/ supraclavicular nodes Declining performance status had a family meeting with patient, daughters, niece --given her performance status recommended hospice at this time. palliative care team present aswell. patient/family understand
[2019-05-05] MEDS ORDERED: INSULIN (NOVOLOG) ASPART 100 UNITS/ML 10ML VIAL ONE (20:57)
[2019-05-05] MEDS: MIRTAZAPINE 15 MG TABLET (FP) PO SCH (21:46)
[2019-05-06] MEDS: fentaNYL 50mcg/hr PATCH.TD72 TD SCH (00:49)
[2019-05-06] MEDS: INSULIN SLIDING SCALE (NOVOLOG) 1 VIAL SQ SCH ×4 (06:11→21:18)
[2019-05-06] MEDS: MORPHINE SULFATE 2 MG/ML VIAL IVPUSH PRN (06:35)
[2019-05-06 07:57] LABS: HEMATOCRIT 28.1 % (32.4-45.2); HEMOGLOBIN 9.2 GM/dL (10.7-15.3); MCH 27.9 pg (25.7-33.7); MCHC 32.6 g/dl (32.0-36.0); MEAN CELL VOLUME 85.7 fl (80-96); MEAN PLT VOLUME 7.2 fl (7.5-11.1); PLATELET COUNT 464 K/MM3 (134-434); RBC 3.28 M/mm3 (3.60-5.2); RDW 19.8 % (11.6-15.6); WHITE BLOOD COUNT 18.2 K/mm3 (4.0-10.0)
[2019-05-06 08:20] LABS: BILIRUBIN,TOTAL 0.2 mg/dL (0.2-1); BLOOD UREA NITROGEN 11.6 mg/dL (7-18); CALCIUM 8.5 mg/dL (8.5-10.1); CREATININE 0.4 mg/dL (0.55-1.3); TOT PROT 6.7 g/dl (6.4-8.2)
[2019-05-06] MEDS: ACETAMINOPHEN 325 MG TABLET (FP) PO PRN (10:36)
[2019-05-06] MEDS: FOLIC ACID 1 MG TABLET (FP) PO SCH (10:36)
[2019-05-06] MEDS: FERROUS SO4 325 MG TABLET (FP) PO SCH (10:36)
[2019-05-06] MEDS: MAGNESIUM OXIDE 400 MG TABLET (FP) PO SCH ×2 (10:37→21:18)
[2019-05-06] MEDS: NAPH,MB-DB/K PH,MBDB POWDER PACKET PO SCH ×2 (10:37→21:17)
[2019-05-06] MEDS: PANTOPRAZOLE SODIUM 40 MG VIAL IVPUSH SCH ×2 (10:37→21:18)
[2019-05-06] MEDS: HEPARIN NA (PORCINE) 5,000 UNITS/ML 1ML VIAL SQ SCH ×2 (10:37→21:18)
[2019-05-06] MEDS: NYSTATIN 100000 UNIT/GM TOPICAL OINTMENT 15 GM TUBE TP SCH ×2 (10:38→21:18)
[2019-05-06 11:36] LABS: BASO % 0.5 % (0-2.0); EOS % 2.9 % (0-4.5); HEMATOCRIT 27.9 % (32.4-45.2); HEMOGLOBIN 9.2 GM/dL (10.7-15.3); LYMPH % 12.7 % (8-40); MCH 28.2 pg (25.7-33.7); MCHC 32.9 g/dl (32.0-36.0); MEAN CELL VOLUME 85.8 fl (80-96); MEAN PLT VOLUME 7.3 fl (7.5-11.1); MONO % 6.4 % (3.8-10.2); NEUT % 77.5 % (42.8-82.8); PLATELET COUNT 470 K/MM3 (134-434); RBC 3.25 M/mm3 (3.60-5.2); RDW 19.7 % (11.6-15.6); WHITE BLOOD COUNT 18.9 K/mm3 (4.0-10.0)
[2019-05-06] MEDS ORDERED: COLCHICINE 0.6 MG CAP PO ONE (14:27)
--- NOTE | 2019-05-06 14:28 | PN ---
Progress Note, Physician Chief Complaint: Abdominal Pain History of Present Illness: Previous notes and events reviewed awake and alert NAD patient is pending authorization for bed at [facility], family spoke with Palliative RN and Dr Kerr yesterday and agreed for Hospice at [facility], will attempt to speak with family allong with Palliative RN to see if plan is still in agreement - Current Medication List Current Medications: Active Medications Acetaminophen (Tylenol -) 650 mg PO Q4H PRN PRN Reason: PAIN LEVEL 6-10 Last Admin: 05/06/19 10:36 Dose: 650 mg Fentanyl (Duragesic 50mcg Patch -) 1 patch TD Q72H [facility] Last Admin: 05/06/19 00:49 Dose: 1 patch Ferrous Sulfate (Feosol -) 325 mg PO DAILY [facility] Last Admin: 05/06/19 10:36 Dose: 325 mg Folic Acid (Folic Acid -) 1 mg PO DAILY [facility] Last Admin: 05/06/19 10:36 Dose: 1 mg Heparin Sodium (Porcine) (Heparin -) 5,000 unit SQ BID [facility] Last Admin: 05/06/19 10:37 Dose: 5,000 unit Potassium Chloride 20 meq/ (Amino Acids) 1,010 mls @ 42 mls/hr IVPB Q24H [facility] Last Admin: 05/05/19 16:34 Dose: Not Given Insulin Aspart (Novolog Vial Sliding Scale -) 1 vial SQ ACHS [facility]; Protocol Last Admin: 05/06/19 11:40 Dose: Not Given Magnesium Oxide (Mag-Ox -) 400 mg PO BID [facility] Last Admin: 05/06/19 10:37 Dose: 400 mg Mirtazapine (Remeron -) 7.5 mg PO HS [facility] Last Admin: 05/05/19 21:46 Dose: 7.5 mg Miscellaneous (Duragesic Patch Waste) 1 each TD PRN PRN PRN Reason: PATCH REMOVAL Morphine Sulfate (Morphine Sulfate) 2 mg IVPUSH Q6H PRN PRN Reason: PAIN LEVEL 6-10 Last Admin: 05/06/19 06:35 Dose: 2 mg Nystatin (Mycostatin Ointment -) 1 applic TP BID [facility] Last Admin: 05/06/19 10:38 Dose: 1 applic Ondansetron HCl (Zofran -) 4 mg PO Q6H PRN PRN Reason: NAUSEA Pantoprazole Sodium (Protonix Iv) 40 mg IVPUSH BID [facility] Last Admin: 05/06/19 10:37 Dose: 40 mg Potassium Phos/Sodium Phos (Phos-Nak Packet -) 1 packet PO BID [facility] Last Admin: 05/06/19 10:37 Dose: 1 packet - Objective Vital Signs: Vital Signs Temperature 98.3 F 05/06/19 05:50 Pulse Rate 100 H 05/06/19 05:50 Respiratory Rate 18 05/06/19 05:50 Blood Pressure 117/57 L 05/06/19 05:50 O2 Sat by Pulse Oximetry (%) 95 05/05/19 22:00 Constitutional: Yes: No Distress, Calm Eyes: Yes: Conjunctiva Clear HENT: Yes: Atraumatic Cardiovascular: Yes: Regular Rate and Rhythm Respiratory: Yes: Regular, CTA Bilaterally Gastrointestinal: Yes: Normal Bowel Sounds, Soft Musculoskeletal: Yes: WNL Extremities: Yes: WNL Edema: No Neurological: Yes: Alert, Oriented Psychiatric: Yes: Alert, Oriented Labs: CBC, BMP 05/06/19 10:45 05/06/19 06:40 Microbiology 04/26/19 16:00 Blood - Peripheral Venous Blood Culture - Final NO GROWTH AFTER 5 DAYS INCUBATION 04/26/19 16:00 Blood - Peripheral Venous Blood Culture - Final NO GROWTH AFTER 5 DAYS INCUBATION 04/27/19 07:00 Urine - Urine Clean Catch Urine Culture - Final Group D Strep Or Entero Coccus Problem List - Problems (1) Abdominal pain Assessment/Plan: -GI on board -Abd/Pelvic CT scan shows RLL consolidation/pneumonia, posteriorly, cannot rule out underlying pathology/mass, interval suggestion of a couple of low- attenuation lesions in the liver is suspicious of metastasis, residual thickening of sigmoid colon wall with evidence of diverticulosis, , residual tiny extraluminal air pockets posterior to sigmoid colon and questionable residual small collection inseperable from the proximal sigmoid colon wall , essentially stable is size previously visualized low attenuation masslike density in the left lower anterior pelvic wall -Pain control -patient is s/p Abscess drainage with IR 04/28/19 Code(s): R10.9 - UNSPECIFIED ABDOMINAL PAIN (2) Diabetes Assessment/Plan: -BGM ACHS -ISS -diabetic diet -A1c 5.4% Code(s): E11.9 - TYPE 2 DIABETES MELLITUS WITHOUT COMPLICATIONS (3) History of ESBL E. coli infection Assessment/Plan: -Contact precaution -ID on board Code(s): Z86.19 - PERSONAL HISTORY OF OTHER INFECTIOUS AND PARASITIC DISEASES (4) Metastatic lung cancer (metastasis from lung to other site) Assessment/Plan: -Fentanyl patch -Oncology on board Code(s): C34.90 - MALIGNANT NEOPLASM OF UNSP PART OF UNSP BRONCHUS OR LUNG Qualifiers: Laterality: left Qualified Code(s): C34.92 - Malignant neoplasm of unspecified part of left bronchus or lung (5) Pneumonia Assessment/Plan: -ID on board -afebrile -O2 via NC -keep SpO2 >90% -completed ABT Code(s): J18.9 - PNEUMONIA, UNSPECIFIED ORGANISM (6) Nausea Assessment/Plan: -zofran prn Code(s): R11.0 - NAUSEA Assessment/Plan ssee problem list dvt ppx patient is pending authorization for [facility], patient will need a SNF or [facility] setting for discharge due to having poor appetite and need for Clinimix
--- NOTE | 2019-05-06 15:30 | PN ---
Progress Note, Physician History of Present Illness: Pt seen and examined at bedside. She is awake and alert. She denies shortness of breath. - Current Medication List Current Medications: Active Medications Acetaminophen (Tylenol -) 650 mg PO Q4H PRN PRN Reason: PAIN LEVEL 6-10 Last Admin: 05/06/19 10:36 Dose: 650 mg Fentanyl (Duragesic 50mcg Patch -) 1 patch TD Q72H [facility] Last Admin: 05/06/19 00:49 Dose: 1 patch Ferrous Sulfate (Feosol -) 325 mg PO DAILY [facility] Last Admin: 05/06/19 10:36 Dose: 325 mg Folic Acid (Folic Acid -) 1 mg PO DAILY [facility] Last Admin: 05/06/19 10:36 Dose: 1 mg Heparin Sodium (Porcine) (Heparin -) 5,000 unit SQ BID [facility] Last Admin: 05/06/19 10:37 Dose: 5,000 unit Potassium Chloride 20 meq/ (Amino Acids) 1,010 mls @ 42 mls/hr IVPB Q24H [facility] Last Admin: 05/05/19 16:34 Dose: Not Given Insulin Aspart (Novolog Vial Sliding Scale -) 1 vial SQ [facility]; Protocol Last Admin: 05/06/19 11:40 Dose: Not Given Magnesium Oxide (Mag-Ox -) 400 mg PO BID [facility] Last Admin: 05/06/19 10:37 Dose: 400 mg Mirtazapine (Remeron -) 7.5 mg PO HS [facility] Last Admin: 05/05/19 21:46 Dose: 7.5 mg Miscellaneous (Duragesic Patch Waste) 1 each TD PRN PRN PRN Reason: PATCH REMOVAL Morphine Sulfate (Morphine Sulfate) 2 mg IVPUSH Q6H PRN PRN Reason: PAIN LEVEL 6-10 Last Admin: 05/06/19 06:35 Dose: 2 mg Nystatin (Mycostatin Ointment -) 1 applic TP BID [facility] Last Admin: 05/06/19 10:38 Dose: 1 applic Ondansetron HCl (Zofran -) 4 mg PO Q6H PRN PRN Reason: NAUSEA Pantoprazole Sodium (Protonix Iv) 40 mg IVPUSH BID [facility] Last Admin: 05/06/19 10:37 Dose: 40 mg Potassium Phos/Sodium Phos (Phos-Nak Packet -) 1 packet PO BID [facility] Last Admin: 05/06/19 10:37 Dose: 1 packet - Objective Vital Signs: Vital Signs Temperature 98.3 F 05/06/19 05:50 Pulse Rate 100 H 05/06/19 05:50 Respiratory Rate 18 05/06/19 05:50 Blood Pressure 117/57 L 05/06/19 05:50 O2 Sat by Pulse Oximetry (%) 95 05/05/19 22:00 Constitutional: Yes: Calm Eyes: Yes: Conjunctiva Clear HENT: Yes: Atraumatic Neck: Yes: Supple Cardiovascular: Yes: S1, S2 Respiratory: Yes: CTA Bilaterally Gastrointestinal: Yes: Soft Genitourinary: Yes: WNL Musculoskeletal: Yes: WNL Extremities: Yes: Other (left hand pain) Edema: No Neurological: Yes: Oriented Psychiatric: Yes: Oriented Labs: CBC, BMP 05/06/19 10:45 05/06/19 06:40 Assessment/Plan Current Medications Generic Name Dose Route Start Last Admin Trade Name Freq PRN Reason Stop Dose Admin Acetaminophen 650 mg 04/26/19 22:41 05/06/19 10:36 Tylenol - PO 650 mg Q4H PRN Administration PAIN LEVEL 6-10 Fentanyl 1 patch 04/26/19 22:45 05/06/19 00:49 Duragesic 50mcg Patch - TD 1 patch Q72H [facility] Administration Ferrous Sulfate 325 mg 04/27/19 10:00 05/06/19 10:36 Feosol - PO 325 mg DAILY [facility] Administration Folic Acid 1 mg 04/27/19 10:00 05/06/19 10:36 Folic Acid - PO 1 mg DAILY [facility] Administration Heparin Sodium (Porcine) 5,000 unit 04/27/19 10:00 05/06/19 10:37 Heparin - SQ 5,000 unit BID [facility] Administration Potassium Chloride 20 meq/ 1,010 mls @ 42 mls/hr 05/02/19 17:00 05/05/19 16: 34 Amino Acids IVPB Not Given Q24H [facility] Insulin Aspart 1 vial 04/27/19 07:00 05/06/19 11:40 Novolog Vial Sliding Scale - SQ Not Given ACHS [facility] Protocol Magnesium Oxide 400 mg 05/01/19 22:00 05/06/19 10:37 Mag-Ox - PO 400 mg BID [facility] Administration Mirtazapine 7.5 mg 05/04/19 22:00 05/05/19 21:46 Remeron - PO 7.5 mg HS [facility] Administration Miscellaneous 1 each 04/26/19 22:56 Duragesic Patch Waste TD PRN PRN PATCH REMOVAL Morphine Sulfate 2 mg 05/04/19 12:26 05/06/19 06:35 Morphine Sulfate IVPUSH 2 mg Q6H PRN Administration PAIN LEVEL 6-10 Nystatin 1 applic 04/29/19 22:00 05/06/19 10:38 Mycostatin Ointment - TP 1 applic BID [facility] Administration Ondansetron HCl 4 mg 04/29/19 15:38 Zofran - PO Q6H PRN NAUSEA Pantoprazole Sodium 40 mg 04/27/19 14:57 05/06/19 10:37 Protonix Iv IVPUSH 40 mg BID [facility] Administration Potassium Phos/Sodium Phos 1 packet 05/01/19 22:00 05/06/19 10:37 Phos-Nak Packet - PO 1 packet BID [facility] Administration Impression 1. hypokalemia 2. lung cancer 3. DM 4. malnutrition 5. pna 6. malnutrition 7. r/o gout Plan - encourage PO intake - pt responded to colchicine - monitor lytes - cont supplements - discussed with primary team
--- NOTE | 2019-05-06 16:54 | PN ---
Progress Note (short form) - Note Progress Note: Patient seen and examined Reports epigastric pain, poor appetite, weakness. Her current regimen does not appear to alleviate her pain Last Vital Signs Temp Pulse Resp BP Pulse Ox 98.3 F 100 H 18 117/57 L 95 05/06/19 05:50 05/06/19 05:50 05/06/19 05:50 05/06/19 05:50 05/05/19 22:00 AFVSS Cor: RSR, No murmurs, No gallops Lungs: Clear to P&A Abd: Soft, Normal bowel sounds, Tender in epigastrium LLQ Ext:No significant edema Labs/Meds reviewed 05/06/19 10:45 05/06/19 06:40 Current Medications Acetaminophen (Tylenol -) 650 mg PO Q4H PRN PRN Reason: PAIN LEVEL 6-10 Last Admin: 05/06/19 10:36 Dose: 650 mg Docusate Sodium (Colace -) 100 mg PO DAILY [facility] Fentanyl (Duragesic 50mcg Patch -) 1 patch TD Q72H [facility]S [facility] Last Admin: 05/06/19 00:49 Dose: 1 patch Ferrous Sulfate (Feosol -) 325 mg PO DAILY [facility] Last Admin: 05/06/19 10:36 Dose: 325 mg Folic Acid (Folic Acid -) 1 mg PO DAILY [facility] Last Admin: 05/06/19 10:36 Dose: 1 mg Heparin Sodium (Porcine) (Heparin -) 5,000 unit SQ BID [facility] Last Admin: 05/06/19 10:37 Dose: 5,000 unit Potassium Chloride 20 meq/ (Amino Acids) 1,010 mls @ 42 mls/hr IVPB Q24H [facility]S [facility] Last Admin: 05/05/19 16:34 Dose: Not Given Insulin Aspart (Novolog Vial Sliding Scale -) 1 vial SQ ACHS [facility]; Protocol Last Admin: 05/06/19 16:12 Dose: Not Given Magnesium Oxide (Mag-Ox -) 400 mg PO BID [facility] Last Admin: 05/06/19 10:37 Dose: 400 mg Mirtazapine (Remeron -) 7.5 mg PO HS [facility] Last Admin: 05/05/19 21:46 Dose: 7.5 mg Miscellaneous (Duragesic Patch Waste) 1 each TD PRN PRN PRN Reason: PATCH REMOVAL Morphine Sulfate (Morphine Sulfate) 2 mg IVPUSH Q6H PRN PRN Reason: PAIN LEVEL 6-10 Last Admin: 05/06/19 06:35 Dose: 2 mg Morphine Sulfate (Ms Contin -) 30 mg PO Q8H [facility] 234 B[facility]S [facility] Nystatin (Mycostatin Ointment -) 1 applic TP BID [facility]S [facility] Last Admin: 05/06/19 10:38 Dose: 1 applic Ondansetron HCl (Zofran -) 4 mg PO Q6H PRN PRN Reason: NAUSEA Pantoprazole Sodium (Protonix Iv) 40 mg IVPUSH BID [facility] Last Admin: 05/06/19 10:37 Dose: 40 mg Potassium Phos/Sodium Phos (Phos-Nak Packet -) 1 packet PO BID [facility] Last Admin: 05/06/19 10:37 Dose: 1 packet A/P 79 year old, lady with a history of metastatic lung CA, hyperlipidemia, diabetes mellitus, SIADH, frequent UTIs admitted for abdominal pain secondary to sigmoid diverticulitis Metastatic lung cancer, adenoca -- with RLL lung mass/ supraclavicular adenopathy/abdominal wall mass/ sacral metastasis Mutation analyisis negative PDL1-50% s/p keytruda , followed by keytruda/carbo/alimta, and more recently abraxane Received palliative RT to abdominal wall mass/ supraclavicular nodes Declining performance status Dr. Kerr had a family meeting with patient, daughters, niece --given her performance status recommended hospice at this time. palliative care team present aswell. Patient/family understood. Pain management: On Fentanyl patch 50 mcg Q72H and Morphine Sulfate 2 mg IVP Q6 PRN and tylenol po 650 PO Q6 PRN. She told me is in significant pain and only asking for tylenol. She agreed with standing MS Contin 30 mg po Q8 for 48-72 hrs until appropriate analgesia is achieved, may decide to continue afterwards. Discussed with pharmacy and will hold if somnolence or RR less than 12.
[2019-05-06] MEDS: DOCUSATE SODIUM 100 MG CAPSULE (FP) PO SCH (17:57)
[2019-05-06] MEDS: morphine SO4 SUSTAINED ACTING 30 MG TABLET.SA PO SCH (17:57)
[2019-05-06] MEDS: POTASSIUM CHLORIDE 20 MEQ in AMINO ACIDS 4.25%/D5W 1,000 ML IVPB SCH (17:58)
[2019-05-06] MEDS: MIRTAZAPINE 15 MG TABLET (FP) PO SCH (21:18)
[2019-05-07] MEDS: morphine SO4 SUSTAINED ACTING 30 MG TABLET.SA PO SCH ×3 (02:35→17:17)
[2019-05-07] MEDS: INSULIN SLIDING SCALE (NOVOLOG) 1 VIAL SQ SCH ×4 (06:15→22:16)
[2019-05-07 07:55] LABS: HEMATOCRIT 27.8 % (32.4-45.2); HEMOGLOBIN 9.1 GM/dL (10.7-15.3); MCH 28.1 pg (25.7-33.7); MCHC 32.8 g/dl (32.0-36.0); MEAN CELL VOLUME 85.7 fl (80-96); MEAN PLT VOLUME 7.3 fl (7.5-11.1); PLATELET COUNT 480 K/MM3 (134-434); RBC 3.24 M/mm3 (3.60-5.2); RDW 20.2 % (11.6-15.6); WHITE BLOOD COUNT 17.8 K/mm3 (4.0-10.0)
[2019-05-07 08:19] LABS: ALBUMIN 2.1 g/dl (3.4-5.0); BILIRUBIN,TOTAL 0.2 mg/dL (0.2-1); BLOOD UREA NITROGEN 14.2 mg/dL (7-18); CALCIUM 8.6 mg/dL (8.5-10.1); CREATININE 0.5 mg/dL (0.55-1.3); POTASSIUM 4.6 mmol/L (3.5-5.1)
[2019-05-07] MEDS: NAPH,MB-DB/K PH,MBDB POWDER PACKET PO SCH ×2 (10:08→22:16)
[2019-05-07] MEDS: FOLIC ACID 1 MG TABLET (FP) PO SCH (10:08)
[2019-05-07] MEDS: NYSTATIN 100000 UNIT/GM TOPICAL OINTMENT 15 GM TUBE TP SCH ×2 (10:08→22:16)
[2019-05-07] MEDS: HEPARIN NA (PORCINE) 5,000 UNITS/ML 1ML VIAL SQ SCH ×2 (10:08→22:16)
[2019-05-07] MEDS: FERROUS SO4 325 MG TABLET (FP) PO SCH (10:08)
[2019-05-07] MEDS: DOCUSATE SODIUM 100 MG CAPSULE (FP) PO SCH (10:08)
[2019-05-07] MEDS: PANTOPRAZOLE SODIUM 40 MG VIAL IVPUSH SCH ×2 (10:08→22:16)
[2019-05-07] MEDS: MAGNESIUM OXIDE 400 MG TABLET (FP) PO SCH ×2 (10:08→22:16)
--- NOTE | 2019-05-07 11:22 | PN ---
Progress Note, Physician Chief Complaint: Abdominal Pain History of Present Illness: Previous notes and events reviewed awake and alert NAD patient daughter at bedside and she is refusing [facility] for patient, she wishes to take her home with [facility], spoke with Palliative RN to inform her of daughters decision no acute events overnight denies chest pain or SOB complain of epigastric pain and LLQ pain - Current Medication List Current Medications: Active Medications Acetaminophen (Tylenol -) 650 mg PO Q4H PRN PRN Reason: PAIN LEVEL 6-10 Last Admin: 05/06/19 10:36 Dose: 650 mg Docusate Sodium (Colace -) 100 mg PO DAILY [facility] Last Admin: 05/07/19 10:08 Dose: 100 mg Fentanyl (Duragesic 50mcg Patch -) 1 patch TD Q72H [facility] Last Admin: 05/06/19 00:49 Dose: 1 patch Ferrous Sulfate (Feosol -) 325 mg PO DAILY [facility] Last Admin: 05/07/19 10:08 Dose: 325 mg Folic Acid (Folic Acid -) 1 mg PO DAILY [facility] Last Admin: 05/07/19 10:08 Dose: 1 mg Heparin Sodium (Porcine) (Heparin -) 5,000 unit SQ BID [facility] Last Admin: 05/07/19 10:08 Dose: 5,000 unit Potassium Chloride 20 meq/ (Amino Acids) 1,010 mls @ 42 mls/hr IVPB Q24H [facility] Last Admin: 05/06/19 17:58 Dose: 42 mls/hr Insulin Aspart (Novolog Vial Sliding Scale -) 1 vial SQ ACHS [facility]; Protocol Last Admin: 05/07/19 06:15 Dose: Not Given Magnesium Oxide (Mag-Ox -) 400 mg PO BID [facility] Last Admin: 05/07/19 10:08 Dose: 400 mg Mirtazapine (Remeron -) 7.5 mg PO HS [facility] Last Admin: 05/06/19 21:18 Dose: 7.5 mg Miscellaneous (Duragesic Patch Waste) 1 each TD PRN PRN PRN Reason: PATCH REMOVAL Morphine Sulfate (Morphine Sulfate) 2 mg IVPUSH Q6H PRN PRN Reason: PAIN LEVEL 6-10 Last Admin: 05/06/19 06:35 Dose: 2 mg Morphine Sulfate (Ms Contin -) 30 mg PO Q8H [facility] Stop: 05/09/19 16:44 Last Admin: 05/07/19 10:07 Dose: 30 mg Nystatin (Mycostatin Ointment -) 1 applic TP BID [facility] Last Admin: 05/07/19 10:08 Dose: 1 applic Ondansetron HCl (Zofran -) 4 mg PO Q6H PRN PRN Reason: NAUSEA Pantoprazole Sodium (Protonix Iv) 40 mg IVPUSH BID [facility] Last Admin: 05/07/19 10:08 Dose: 40 mg Potassium Phos/Sodium Phos (Phos-Nak Packet -) 1 packet PO BID [facility] Last Admin: 05/07/19 10:08 Dose: 1 packet - Objective Vital Signs: Vital Signs Temperature 98.3 F 05/07/19 06:00 Pulse Rate 95 H 05/07/19 06:00 Respiratory Rate 18 05/07/19 06:00 Blood Pressure 123/61 05/07/19 06:00 O2 Sat by Pulse Oximetry (%) 96 05/06/19 22:00 Constitutional: Yes: No Distress, Calm Eyes: Yes: Conjunctiva Clear HENT: Yes: Atraumatic Cardiovascular: Yes: Regular Rate and Rhythm Respiratory: Yes: Regular, Diminished Gastrointestinal: Yes: Normal Bowel Sounds, Soft, Tenderness (llq), Tenderness, Epigastrium Musculoskeletal: Yes: Muscle Weakness Extremities: Yes: WNL Edema: No Neurological: Yes: Alert Psychiatric: Yes: Alert Labs: CBC, BMP 05/07/19 06:10 05/07/19 06:10 Microbiology 04/26/19 16:00 Blood - Peripheral Venous Blood Culture - Final NO GROWTH AFTER 5 DAYS INCUBATION 04/26/19 16:00 Blood - Peripheral Venous Blood Culture - Final NO GROWTH AFTER 5 DAYS INCUBATION 04/27/19 07:00 Urine - Urine Clean Catch Urine Culture - Final Group D Strep Or Entero Coccus Problem List - Problems (1) Abdominal pain Assessment/Plan: -GI on board -Abd/Pelvic CT scan shows RLL consolidation/pneumonia, posteriorly, cannot rule out underlying pathology/mass, interval suggestion of a couple of low- attenuation lesions in the liver is suspicious of metastasis, residual thickening of sigmoid colon wall with evidence of diverticulosis, , residual tiny extraluminal air pockets posterior to sigmoid colon and questionable residual small collection inseperable from the proximal sigmoid colon wall , essentially stable is size previously visualized low attenuation masslike density in the left lower anterior pelvic wall -Pain control -patient is s/p Abscess drainage with IR 04/28/19 Code(s): R10.9 - UNSPECIFIED ABDOMINAL PAIN (2) Diabetes Assessment/Plan: -BGM ACHS -ISS -diabetic diet -A1c 5.4% Code(s): E11.9 - TYPE 2 DIABETES MELLITUS WITHOUT COMPLICATIONS (3) History of ESBL E. coli infection Assessment/Plan: -Contact precaution -ID on board Code(s): Z86.19 - PERSONAL HISTORY OF OTHER INFECTIOUS AND PARASITIC DISEASES (4) Metastatic lung cancer (metastasis from lung to other site) Assessment/Plan: -Fentanyl patch -Oncology on board -pain control Code(s): C34.90 - MALIGNANT NEOPLASM OF UNSP PART OF UNSP BRONCHUS OR LUNG Qualifiers: Laterality: left Qualified Code(s): C34.92 - Malignant neoplasm of unspecified part of left bronchus or lung (5) Pneumonia Assessment/Plan: -ID on board -afebrile -O2 via NC -keep SpO2 >90% -completed ABT Code(s): J18.9 - PNEUMONIA, UNSPECIFIED ORGANISM (6) Nausea Assessment/Plan: -zofran prn Code(s): R11.0 - NAUSEA Assessment/Plan ssee problem list dvt ppx
[2019-05-07] MEDS ORDERED: PT OWN MED DRAWER 7, Y5N ONE (11:29)
--- NOTE | 2019-05-07 13:28 | PN ---
Progress Note, Physician History of Present Illness: Pt seen and examined at bedside. She is awake and alert. She denies shortness of breath. She feels like she is eating more. SHe feels that the left hand pain is resolved. - Current Medication List Current Medications: Active Medications Acetaminophen (Tylenol -) 650 mg PO Q4H PRN PRN Reason: PAIN LEVEL 6-10 Last Admin: 05/06/19 10:36 Dose: 650 mg Docusate Sodium (Colace -) 100 mg PO DAILY [facility] Last Admin: 05/07/19 10:08 Dose: 100 mg Fentanyl (Duragesic 50mcg Patch -) 1 patch TD Q72H [facility] Last Admin: 05/06/19 00:49 Dose: 1 patch Ferrous Sulfate (Feosol -) 325 mg PO DAILY [facility] Last Admin: 05/07/19 10:08 Dose: 325 mg Folic Acid (Folic Acid -) 1 mg PO DAILY [facility] Last Admin: 05/07/19 10:08 Dose: 1 mg Heparin Sodium (Porcine) (Heparin -) 5,000 unit SQ BID [facility] Last Admin: 05/07/19 10:08 Dose: 5,000 unit Potassium Chloride 20 meq/ (Amino Acids) 1,010 mls @ 42 mls/hr IVPB Q24H [facility] Last Admin: 05/06/19 17:58 Dose: 42 mls/hr Insulin Aspart (Novolog Vial Sliding Scale -) 1 vial SQ ACHS [facility]; Protocol Last Admin: 05/07/19 11:41 Dose: Not Given Magnesium Oxide (Mag-Ox -) 400 mg PO BID [facility] Last Admin: 05/07/19 10:08 Dose: 400 mg Mirtazapine (Remeron -) 7.5 mg PO HS [facility] Last Admin: 05/06/19 21:18 Dose: 7.5 mg Miscellaneous (Duragesic Patch Waste) 1 each TD PRN PRN PRN Reason: PATCH REMOVAL Morphine Sulfate (Ms Contin -) 30 mg PO Q8H [facility] Stop: 05/09/19 16:44 Last Admin: 05/07/19 10:07 Dose: 30 mg Nystatin (Mycostatin Ointment -) 1 applic TP BID [facility] Last Admin: 05/07/19 10:08 Dose: 1 applic Ondansetron HCl (Zofran -) 4 mg PO Q6H PRN PRN Reason: NAUSEA Pantoprazole Sodium (Protonix Iv) 40 mg IVPUSH BID [facility] Last Admin: 05/07/19 10:08 Dose: 40 mg Potassium Phos/Sodium Phos (Phos-Nak Packet -) 1 packet PO BID [facility] Last Admin: 05/07/19 10:08 Dose: 1 packet - Objective Vital Signs: Vital Signs Temperature 98.0 F 05/07/19 09:00 Pulse Rate 104 H 05/07/19 09:00 Respiratory Rate 20 05/07/19 09:00 Blood Pressure 123/72 05/07/19 09:00 O2 Sat by Pulse Oximetry (%) 95 05/07/19 09:00 Constitutional: Yes: Calm Eyes: Yes: Conjunctiva Clear HENT: Yes: Atraumatic Neck: Yes: Supple Cardiovascular: Yes: S1, S2 Respiratory: Yes: CTA Bilaterally Gastrointestinal: Yes: Normal Bowel Sounds, Soft Genitourinary: Yes: WNL Musculoskeletal: Yes: WNL Neurological: Yes: Oriented Psychiatric: Yes: Oriented Labs: CBC, BMP 05/07/19 06:10 05/07/19 06:10 Assessment/Plan Current Medications Generic Name Dose Route Start Last Admin Trade Name Freq PRN Reason Stop Dose Admin Acetaminophen 650 mg 04/26/19 22:41 05/06/19 10:36 Tylenol - PO 650 mg Q4H PRN Administration PAIN LEVEL 6-10 Docusate Sodium 100 mg 05/06/19 16:45 05/07/19 10:08 Colace - PO 100 mg DAILY [facility] Administration Fentanyl 1 patch 04/26/19 22:45 05/06/19 00:49 Duragesic 50mcg Patch - TD 1 patch Q72H [facility] Administration Ferrous Sulfate 325 mg 04/27/19 10:00 05/07/19 10:08 Feosol - PO 325 mg DAILY [facility] Administration Folic Acid 1 mg 04/27/19 10:00 05/07/19 10:08 Folic Acid - PO 1 mg DAILY [facility] Administration Heparin Sodium (Porcine) 5,000 unit 04/27/19 10:00 05/07/19 10:08 Heparin - SQ 5,000 unit BID [facility] Administration Potassium Chloride 20 meq/ 1,010 mls @ 42 mls/hr 05/02/19 17:00 05/06/19 17: 58 Amino Acids IVPB 42 mls/hr Q24H [facility] Administration Insulin Aspart 1 vial 04/27/19 07:00 05/07/19 11:41 Novolog Vial Sliding Scale - SQ Not Given ACHS [facility] Protocol Magnesium Oxide 400 mg 05/01/19 22:00 05/07/19 10:08 Mag-Ox - PO 400 mg BID [facility] Administration Mirtazapine 7.5 mg 05/04/19 22:00 05/06/19 21:18 Remeron - PO 7.5 mg HS [facility] Administration Miscellaneous 1 each 04/26/19 22:56 Duragesic Patch Waste TD PRN PRN PATCH REMOVAL Morphine Sulfate 30 mg 05/06/19 16:45 05/07/19 10:07 Ms Contin - PO 05/09/19 16:44 30 mg Q8H [facility] Administration Nystatin 1 applic 04/29/19 22:00 05/07/19 10:08 Mycostatin Ointment - TP 1 applic BID [facility] Administration Ondansetron HCl 4 mg 04/29/19 15:38 Zofran - PO Q6H PRN NAUSEA Pantoprazole Sodium 40 mg 04/27/19 14:57 05/07/19 10:08 Protonix Iv IVPUSH 40 mg BID [facility] Administration Potassium Phos/Sodium Phos 1 packet 05/01/19 22:00 05/07/19 10:08 Phos-Nak Packet - PO 1 packet BID [facility] Administration Impression 1. hypokalemia 2. lung cancer 3. DM 4. malnutrition 5. pna 6. malnutrition 7. r/o gout Plan - cont supplements - encourage PO intake - monitor lytes - discussed with family
[2019-05-07] MEDS: POTASSIUM CHLORIDE 20 MEQ in AMINO ACIDS 4.25%/D5W 1,000 ML IVPB SCH (17:17)
[2019-05-07] MEDS: MIRTAZAPINE 15 MG TABLET (FP) PO SCH (22:16)
[2019-05-08] MEDS: morphine SO4 SUSTAINED ACTING 30 MG TABLET.SA PO SCH ×3 (02:48→18:23)
[2019-05-08] MEDS: INSULIN SLIDING SCALE (NOVOLOG) 1 VIAL SQ SCH ×4 (06:53→22:33)
[2019-05-08] MEDS ORDERED: INSULIN (NOVOLOG) ASPART 100 UNITS/ML 10ML VIAL ONE (06:56)
[2019-05-08] MEDS: FOLIC ACID 1 MG TABLET (FP) PO SCH (10:16)
[2019-05-08] MEDS: HEPARIN NA (PORCINE) 5,000 UNITS/ML 1ML VIAL SQ SCH ×2 (10:16→22:32)
[2019-05-08] MEDS: NAPH,MB-DB/K PH,MBDB POWDER PACKET PO SCH ×2 (10:16→22:33)
[2019-05-08] MEDS: NYSTATIN 100000 UNIT/GM TOPICAL OINTMENT 15 GM TUBE TP SCH ×2 (10:16→22:33)
[2019-05-08] MEDS: MAGNESIUM OXIDE 400 MG TABLET (FP) PO SCH ×2 (10:16→22:33)
[2019-05-08] MEDS: FERROUS SO4 325 MG TABLET (FP) PO SCH (10:16)
[2019-05-08] MEDS: DOCUSATE SODIUM 100 MG CAPSULE (FP) PO SCH (10:16)
[2019-05-08] MEDS: PANTOPRAZOLE SODIUM 40 MG VIAL IVPUSH SCH ×2 (10:16→22:33)
--- NOTE | 2019-05-08 11:36 | PN ---
Progress Note, Physician Chief Complaint: Abdominal Pain History of Present Illness: Previous notes and events reviewed awake and alert NAD no acute events overnight denies chest pain or SOB patient is pending approval for home hospice - Current Medication List Current Medications: Active Medications Acetaminophen (Tylenol -) 650 mg PO Q4H PRN PRN Reason: PAIN LEVEL 6-10 Last Admin: 05/06/19 10:36 Dose: 650 mg Docusate Sodium (Colace -) 100 mg PO DAILY [facility] Last Admin: 05/08/19 10:16 Dose: 100 mg Fentanyl (Duragesic 50mcg Patch -) 1 patch TD Q72H [facility] Last Admin: 05/06/19 00:49 Dose: 1 patch Ferrous Sulfate (Feosol -) 325 mg PO DAILY [facility] Last Admin: 05/08/19 10:16 Dose: 325 mg Folic Acid (Folic Acid -) 1 mg PO DAILY [facility] Last Admin: 05/08/19 10:16 Dose: 1 mg Heparin Sodium (Porcine) (Heparin -) 5,000 unit SQ BID [facility] Last Admin: 05/08/19 10:16 Dose: 5,000 unit Potassium Chloride 20 meq/ (Amino Acids) 1,010 mls @ 42 mls/hr IVPB Q24H [facility] Last Admin: 05/07/19 17:17 Dose: 42 mls/hr Insulin Aspart (Novolog Vial Sliding Scale -) 1 vial SQ ACHS [facility]; Protocol Last Admin: 05/08/19 11:34 Dose: Not Given Magnesium Oxide (Mag-Ox -) 400 mg PO BID [facility] Last Admin: 05/08/19 10:16 Dose: 400 mg Mirtazapine (Remeron -) 7.5 mg PO HS [facility] Last Admin: 05/07/19 22:16 Dose: 7.5 mg Miscellaneous (Duragesic Patch Waste) 1 each TD PRN PRN PRN Reason: PATCH REMOVAL Morphine Sulfate (Ms Contin -) 30 mg PO Q8H [facility] Stop: 05/09/19 16:44 Last Admin: 05/08/19 10:15 Dose: 30 mg Nystatin (Mycostatin Ointment -) 1 applic TP BID [facility] Last Admin: 05/08/19 10:16 Dose: 1 applic Ondansetron HCl (Zofran -) 4 mg PO Q6H PRN PRN Reason: NAUSEA Pantoprazole Sodium (Protonix Iv) 40 mg IVPUSH BID [facility] Last Admin: 05/08/19 10:16 Dose: 40 mg Potassium Phos/Sodium Phos (Phos-Nak Packet -) 1 packet PO BID [facility] Last Admin: 05/08/19 10:16 Dose: 1 packet - Objective Vital Signs: Vital Signs Temperature 98.0 F 05/08/19 10:00 Pulse Rate 96 H 05/08/19 10:00 Respiratory Rate 20 05/08/19 10:00 Blood Pressure 100/51 L 05/08/19 10:00 O2 Sat by Pulse Oximetry (%) 95 05/07/19 09:00 Constitutional: Yes: No Distress, Calm Eyes: Yes: Conjunctiva Clear HENT: Yes: Atraumatic Cardiovascular: Yes: Regular Rate and Rhythm Respiratory: Yes: Regular, CTA Bilaterally Gastrointestinal: Yes: Normal Bowel Sounds, Soft Genitourinary: Yes: Incontinence Musculoskeletal: Yes: Muscle Weakness Extremities: Yes: WNL Edema: No Neurological: Yes: Alert, Oriented Psychiatric: Yes: Alert, Oriented Labs: CBC, BMP 05/07/19 06:10 05/07/19 06:10 Problem List - Problems (1) Abdominal pain Assessment/Plan: -GI on board -Abd/Pelvic CT scan shows RLL consolidation/pneumonia, posteriorly, cannot rule out underlying pathology/mass, interval suggestion of a couple of low- attenuation lesions in the liver is suspicious of metastasis, residual thickening of sigmoid colon wall with evidence of diverticulosis, , residual tiny extraluminal air pockets posterior to sigmoid colon and questionable residual small collection inseperable from the proximal sigmoid colon wall , essentially stable is size previously visualized low attenuation masslike density in the left lower anterior pelvic wall -Pain control -patient is s/p Abscess drainage with IR 04/28/19 Code(s): R10.9 - UNSPECIFIED ABDOMINAL PAIN (2) Diabetes Assessment/Plan: -BGM ACHS -ISS -diabetic diet -A1c 5.4% Code(s): E11.9 - TYPE 2 DIABETES MELLITUS WITHOUT COMPLICATIONS (3) History of ESBL E. coli infection Assessment/Plan: -Contact precaution -ID on board Code(s): Z86.19 - PERSONAL HISTORY OF OTHER INFECTIOUS AND PARASITIC DISEASES (4) Metastatic lung cancer (metastasis from lung to other site) Assessment/Plan: -Fentanyl patch -Oncology on board -pain control Code(s): C34.90 - MALIGNANT NEOPLASM OF UNSP PART OF UNSP BRONCHUS OR LUNG Qualifiers: Laterality: left Qualified Code(s): C34.92 - Malignant neoplasm of unspecified part of left bronchus or lung (5) Pneumonia Assessment/Plan: -ID on board -afebrile -O2 via NC -keep SpO2 >90% -completed ABT Code(s): J18.9 - PNEUMONIA, UNSPECIFIED ORGANISM (6) Nausea Assessment/Plan: -zofran prn Code(s): R11.0 - NAUSEA Assessment/Plan ssee problem list dvt ppx
--- NOTE | 2019-05-08 14:20 | PN ---
Progress Note, Physician History of Present Illness: Pt seen and examined at bedside. She says she is eating a little more. - Current Medication List Current Medications: Active Medications Acetaminophen (Tylenol -) 650 mg PO Q4H PRN PRN Reason: PAIN LEVEL 6-10 Last Admin: 05/06/19 10:36 Dose: 650 mg Docusate Sodium (Colace -) 100 mg PO DAILY [facility] Last Admin: 05/08/19 10:16 Dose: 100 mg Fentanyl (Duragesic 50mcg Patch -) 1 patch TD Q72H [facility] Last Admin: 05/06/19 00:49 Dose: 1 patch Ferrous Sulfate (Feosol -) 325 mg PO DAILY [facility] Last Admin: 05/08/19 10:16 Dose: 325 mg Folic Acid (Folic Acid -) 1 mg PO DAILY [facility] Last Admin: 05/08/19 10:16 Dose: 1 mg Heparin Sodium (Porcine) (Heparin -) 5,000 unit SQ BID [facility] Last Admin: 05/08/19 10:16 Dose: 5,000 unit Potassium Chloride 20 meq/ (Amino Acids) 1,010 mls @ 42 mls/hr IVPB Q24H [facility] Last Admin: 05/07/19 17:17 Dose: 42 mls/hr Insulin Aspart (Novolog Vial Sliding Scale -) 1 vial SQ ACHS [facility]; Protocol Last Admin: 05/08/19 11:34 Dose: Not Given Magnesium Oxide (Mag-Ox -) 400 mg PO BID [facility] Last Admin: 05/08/19 10:16 Dose: 400 mg Mirtazapine (Remeron -) 7.5 mg PO HS [facility] Last Admin: 05/07/19 22:16 Dose: 7.5 mg Miscellaneous (Duragesic Patch Waste) 1 each TD PRN PRN PRN Reason: PATCH REMOVAL Morphine Sulfate (Ms Contin -) 30 mg PO Q8H [facility] Stop: 05/09/19 16:44 Last Admin: 05/08/19 10:15 Dose: 30 mg Nystatin (Mycostatin Ointment -) 1 applic TP BID [facility] Last Admin: 05/08/19 10:16 Dose: 1 applic Ondansetron HCl (Zofran -) 4 mg PO Q6H PRN PRN Reason: NAUSEA Pantoprazole Sodium (Protonix Iv) 40 mg IVPUSH BID [facility] Last Admin: 05/08/19 10:16 Dose: 40 mg Potassium Phos/Sodium Phos (Phos-Nak Packet -) 1 packet PO BID [facility] Last Admin: 05/08/19 10:16 Dose: 1 packet - Objective Vital Signs: Vital Signs Temperature 98.0 F 05/08/19 10:00 Pulse Rate 96 H 05/08/19 10:00 Respiratory Rate 20 05/08/19 10:00 Blood Pressure 100/51 L 05/08/19 10:00 O2 Sat by Pulse Oximetry (%) 95 05/07/19 09:00 Constitutional: Yes: Calm Eyes: Yes: Conjunctiva Clear HENT: Yes: Atraumatic Neck: Yes: Supple Cardiovascular: Yes: S1, S2 Respiratory: Yes: CTA Bilaterally Gastrointestinal: Yes: Soft Genitourinary: Yes: WNL Musculoskeletal: Yes: WNL Extremities: Yes: WNL Edema: No Integumentary: Yes: WNL Neurological: Yes: Oriented Labs: CBC, BMP 05/07/19 06:10 05/07/19 06:10 Assessment/Plan Current Medications Generic Name Dose Route Start Last Admin Trade Name Jonesq PRN Reason Stop Dose Admin Acetaminophen 650 mg 04/26/19 22:41 05/06/19 10:36 Tylenol - PO 650 mg Q4H PRN Administration PAIN LEVEL 6-10 Docusate Sodium 100 mg 05/06/19 16:45 05/08/19 10:16 Colace - PO 100 mg DAILY [facility] Administration Fentanyl 1 patch 04/26/19 22:45 05/06/19 00:49 Duragesic 50mcg Patch - TD 1 patch Q72H [facility] Administration Ferrous Sulfate 325 mg 04/27/19 10:00 05/08/19 10:16 Feosol - PO 325 mg DAILY [facility] Administration Folic Acid 1 mg 04/27/19 10:00 05/08/19 10:16 Folic Acid - PO 1 mg DAILY [facility] Administration Heparin Sodium (Porcine) 5,000 unit 04/27/19 10:00 05/08/19 10:16 Heparin - SQ 5,000 unit BID [facility] Administration Potassium Chloride 20 meq/ 1,010 mls @ 42 mls/hr 05/02/19 17:00 05/07/19 17: 17 Amino Acids IVPB 42 mls/hr Q24H [facility] Administration Insulin Aspart 1 vial 04/27/19 07:00 05/08/19 11:34 Novolog Vial Sliding Scale - SQ Not Given ACHS [facility] Protocol Magnesium Oxide 400 mg 05/01/19 22:00 05/08/19 10:16 Mag-Ox - PO 400 mg BID [facility] Administration Mirtazapine 7.5 mg 05/04/19 22:00 05/07/19 22:16 Remeron - PO 7.5 mg HS [facility] Administration Miscellaneous 1 each 04/26/19 22:56 Duragesic Patch Waste TD PRN PRN PATCH REMOVAL Morphine Sulfate 30 mg 05/06/19 16:45 05/08/19 10:15 Ms Contin - PO 05/09/19 16:44 30 mg Q8H [facility] Administration Nystatin 1 applic 04/29/19 22:00 05/08/19 10:16 Mycostatin Ointment - TP 1 applic BID [facility] Administration Ondansetron HCl 4 mg 04/29/19 15:38 Zofran - PO Q6H PRN NAUSEA Pantoprazole Sodium 40 mg 04/27/19 14:57 05/08/19 10:16 Protonix Iv IVPUSH 40 mg BID [facility] Administration Potassium Phos/Sodium Phos 1 packet 05/01/19 22:00 05/08/19 10:16 Phos-Nak Packet - PO 1 packet BID [facility] Administration Impression 1. hypokalemia 2. lung cancer 3. DM 4. malnutrition 5. pna 6. malnutrition 7. r/o gout Plan - check labs in am - encourage PO intake and cont supplements - discussed with medical team - monitor lytes
[2019-05-08] MEDS: MIRTAZAPINE 15 MG TABLET (FP) PO SCH (22:33)
[2019-05-08] MEDS: POTASSIUM CHLORIDE 20 MEQ in AMINO ACIDS 4.25%/D5W 1,000 ML IVPB SCH (22:35)
[2019-05-08] MEDS: fentaNYL 50mcg/hr PATCH.TD72 TD SCH (22:45)
[2019-05-09] MEDS: morphine SO4 SUSTAINED ACTING 30 MG TABLET.SA PO SCH ×2 (02:02→09:05)
[2019-05-09] MEDS: INSULIN SLIDING SCALE (NOVOLOG) 1 VIAL SQ SCH ×4 (07:00→21:56)
[2019-05-09] MEDS: FERROUS SO4 325 MG TABLET (FP) PO SCH (09:05)
[2019-05-09] MEDS: PANTOPRAZOLE SODIUM 40 MG VIAL IVPUSH SCH ×2 (09:05→21:55)
[2019-05-09] MEDS: DOCUSATE SODIUM 100 MG CAPSULE (FP) PO SCH (09:05)
[2019-05-09] MEDS: FOLIC ACID 1 MG TABLET (FP) PO SCH (09:05)
[2019-05-09] MEDS: NAPH,MB-DB/K PH,MBDB POWDER PACKET PO SCH ×2 (09:06→21:54)
[2019-05-09] MEDS: MAGNESIUM OXIDE 400 MG TABLET (FP) PO SCH ×2 (09:06→21:55)
[2019-05-09] MEDS: NYSTATIN 100000 UNIT/GM TOPICAL OINTMENT 15 GM TUBE TP SCH ×2 (09:06→21:58)
[2019-05-09] MEDS: HEPARIN NA (PORCINE) 5,000 UNITS/ML 1ML VIAL SQ SCH ×2 (09:06→21:55)
[2019-05-09 09:28] LABS: BILIRUBIN,TOTAL 0.4 mg/dL (0.2-1); BLOOD UREA NITROGEN 18.6 mg/dL (7-18); CALCIUM 8.7 mg/dL (8.5-10.1); CREATININE 0.4 mg/dL (0.55-1.3); MAGNESIUM 2.1 mg/dL (1.8-2.4); PHOSPHOROUS 3.8 mg/dL (2.5-4.9); POTASSIUM 4.7 mmol/L (3.5-5.1); TOT PROT 6.8 g/dl (6.4-8.2)
--- NOTE | 2019-05-09 15:53 | PN ---
Progress Note (short form) - Note Progress Note: asked to see for left had swelling/erythema no fevers still with midepigastric pain +erythema and induration left hand-unclear for how long eating a bit Vital Signs Period Temp Pulse Resp BP Sys/Paulson Pulse Ox Last 24 Hr 98.1 F-98.7 F 90-99 20-20 100-142/50-59 94 cor-rrr lungs clear abd soft,nt ext left hand dorsum with 4 by 5 cm area of induration and erythema, pain on palpation, no fluctuance CBC, BMP 05/07/19 06:10 05/09/19 06:10 Microbiology 04/26/19 16:00 Blood - Peripheral Venous Blood Culture - Final NO GROWTH AFTER 5 DAYS INCUBATION 04/26/19 16:00 Blood - Peripheral Venous Blood Culture - Final NO GROWTH AFTER 5 DAYS INCUBATION 04/27/19 07:00 Urine - Urine Clean Catch Urine Culture - Final Group D Strep Or Entero Coccus a/p ?cellulitis left hand blood cultures today vancomycin metastatic lung cancer Problem List - Problems (1) Abdominal pain Code(s): R10.9 - UNSPECIFIED ABDOMINAL PAIN (2) Abdominal fluid collection Code(s): R18.8 - OTHER ASCITES (3) Metastatic lung cancer (metastasis from lung to other site) Code(s): C34.90 - MALIGNANT NEOPLASM OF UNSP PART OF UNSP BRONCHUS OR LUNG Qualifiers: Laterality: left Qualified Code(s): C34.92 - Malignant neoplasm of unspecified part of left bronchus or lung
--- NOTE | 2019-05-09 16:09 | PN ---
Progress Note, Physician History of Present Illness: Pt seen and examined at bedside. She is awake and appears comfortable. She complains of erythema of the left wrist. - Current Medication List Current Medications: Active Medications Acetaminophen (Tylenol -) 650 mg PO Q4H PRN PRN Reason: PAIN LEVEL 6-10 Last Admin: 05/06/19 10:36 Dose: 650 mg Docusate Sodium (Colace -) 100 mg PO DAILY [facility] Last Admin: 05/09/19 09:05 Dose: 100 mg Fentanyl (Duragesic 50mcg Patch -) 1 patch TD Q72H [facility] Last Admin: 05/08/19 22:45 Dose: Not Given Ferrous Sulfate (Feosol -) 325 mg PO DAILY [facility] Last Admin: 05/09/19 09:05 Dose: 325 mg Folic Acid (Folic Acid -) 1 mg PO DAILY [facility] Last Admin: 05/09/19 09:05 Dose: 1 mg Heparin Sodium (Porcine) (Heparin -) 5,000 unit SQ BID [facility] Last Admin: 05/09/19 09:06 Dose: 5,000 unit Potassium Chloride 20 meq/ (Amino Acids) 1,010 mls @ 42 mls/hr IVPB Q24H [facility] Last Admin: 05/08/19 22:35 Dose: 42 mls/hr Vancomycin HCl 750 mg/ (Dextrose) 250 mls @ 250 mls/hr IVPB Q24H [facility]; Protocol Insulin Aspart (Novolog Vial Sliding Scale -) 1 vial SQ ACHS [facility]; Protocol Last Admin: 05/09/19 11:45 Dose: Not Given Magnesium Oxide (Mag-Ox -) 400 mg PO BID [facility] Last Admin: 05/09/19 09:06 Dose: 400 mg Mirtazapine (Remeron -) 7.5 mg PO HS [facility] Last Admin: 05/08/19 22:33 Dose: 7.5 mg Miscellaneous (Duragesic Patch Waste) 1 each TD PRN PRN PRN Reason: PATCH REMOVAL Morphine Sulfate (Ms Contin -) 30 mg PO Q8H [facility] Stop: 05/09/19 16:44 Last Admin: 05/09/19 09:05 Dose: 30 mg Nystatin (Mycostatin Ointment -) 1 applic TP BID [facility] Last Admin: 05/09/19 09:06 Dose: 1 applic Ondansetron HCl (Zofran -) 4 mg PO Q6H PRN PRN Reason: NAUSEA Pantoprazole Sodium (Protonix Iv) 40 mg IVPUSH BID [facility] Last Admin: 05/09/19 09:05 Dose: 40 mg Potassium Phos/Sodium Phos (Phos-Nak Packet -) 1 packet PO BID [facility] Last Admin: 05/09/19 09:06 Dose: 1 packet - Objective Vital Signs: Vital Signs Temperature 98.1 F 05/09/19 11:02 Pulse Rate 90 05/09/19 11:02 Respiratory Rate 20 05/09/19 11:02 Blood Pressure 110/50 L 05/09/19 11:02 O2 Sat by Pulse Oximetry (%) 94 L 05/09/19 09:00 Constitutional: Yes: Calm Eyes: Yes: Conjunctiva Clear HENT: Yes: Atraumatic Neck: Yes: Supple Cardiovascular: Yes: S1, S2 Respiratory: Yes: CTA Bilaterally Gastrointestinal: Yes: Soft Genitourinary: Yes: WNL Edema: No Neurological: Yes: Oriented Psychiatric: Yes: Oriented Labs: CBC, BMP 05/07/19 06:10 05/09/19 06:10 Assessment/Plan Current Medications Generic Name Dose Route Start Last Admin Trade Name Freq PRN Reason Stop Dose Admin Acetaminophen 650 mg 04/26/19 22:41 05/06/19 10:36 Tylenol - PO 650 mg Q4H PRN Administration PAIN LEVEL 6-10 Docusate Sodium 100 mg 05/06/19 16:45 05/09/19 09:05 Colace - PO 100 mg DAILY [facility] Administration Fentanyl 1 patch 04/26/19 22:45 05/08/19 22:45 Duragesic 50mcg Patch - TD Not Given Q72H [facility] Ferrous Sulfate 325 mg 04/27/19 10:00 05/09/19 09:05 Feosol - PO 325 mg DAILY [facility] Administration Folic Acid 1 mg 04/27/19 10:00 05/09/19 09:05 Folic Acid - PO 1 mg DAILY [facility] Administration Heparin Sodium (Porcine) 5,000 unit 04/27/19 10:00 05/09/19 09:06 Heparin - SQ 5,000 unit BID [facility] Administration Potassium Chloride 20 meq/ 1,010 mls @ 42 mls/hr 05/02/19 17:00 05/08/19 22: 35 Amino Acids IVPB 42 mls/hr Q24H [facility] Administration Vancomycin HCl 750 mg/ 250 mls @ 250 mls/hr 05/09/19 16:00 Dextrose IVPB Q24H [facility] Protocol Insulin Aspart 1 vial 04/27/19 07:00 05/09/19 11:45 Novolog Vial Sliding Scale - SQ Not Given ACHS [facility] Protocol Magnesium Oxide 400 mg 05/01/19 22:00 05/09/19 09:06 Mag-Ox - PO 400 mg BID [facility] Administration Mirtazapine 7.5 mg 05/04/19 22:00 05/08/19 22:33 Remeron - PO 7.5 mg HS [facility] Administration Miscellaneous 1 each 04/26/19 22:56 Duragesic Patch Waste TD PRN PRN PATCH REMOVAL Morphine Sulfate 30 mg 05/06/19 16:45 05/09/19 09:05 Ms Contin - PO 05/09/19 16:44 30 mg Q8H [facility] Administration Nystatin 1 applic 04/29/19 22:00 05/09/19 09:06 Mycostatin Ointment - TP 1 applic BID [facility] Administration Ondansetron HCl 4 mg 04/29/19 15:38 Zofran - PO Q6H PRN NAUSEA Pantoprazole Sodium 40 mg 04/27/19 14:57 05/09/19 09:05 Protonix Iv IVPUSH 40 mg BID [facility] Administration Potassium Phos/Sodium Phos 1 packet 05/01/19 22:00 05/09/19 09:06 Phos-Nak Packet - PO 1 packet BID [facility] Administration Laboratory Tests 05/09/19 06:10 Sodium 128 L Potassium 4.7 BUN 18.6 H Creatinine 0.4 L Impression 1. hypokalemia 2. lung cancer 3. DM 4. malnutrition 5. pna 6. malnutrition 7. r/o gout 8. hyponatremia 9. failure to thrive 10. cellulitis Plan - encourage PO intake - cont supplements - explained to pt that she need to have food or solute and not just water - will need to discuss overall goals of care
[2019-05-09] MEDS: POTASSIUM CHLORIDE 20 MEQ in AMINO ACIDS 4.25%/D5W 1,000 ML IVPB SCH (16:55)
--- NOTE | 2019-05-09 17:22 | PN ---
Progress Note, Physician Chief Complaint: Abdominal Pain History of Present Illness: Previous notes and events reviewed awake and alert NAD no acute events overnight denies chest pain or SOB patient is pending approval for home hospice erythema and pain noted to L hand - Current Medication List Current Medications: Active Medications Acetaminophen (Tylenol -) 650 mg PO Q4H PRN PRN Reason: PAIN LEVEL 6-10 Last Admin: 05/06/19 10:36 Dose: 650 mg Docusate Sodium (Colace -) 100 mg PO DAILY [facility] Last Admin: 05/09/19 09:05 Dose: 100 mg Fentanyl (Duragesic 50mcg Patch -) 1 patch TD Q72H [facility] Last Admin: 05/08/19 22:45 Dose: Not Given Ferrous Sulfate (Feosol -) 325 mg PO DAILY [facility] Last Admin: 05/09/19 09:05 Dose: 325 mg Folic Acid (Folic Acid -) 1 mg PO DAILY [facility] Last Admin: 05/09/19 09:05 Dose: 1 mg Heparin Sodium (Porcine) (Heparin -) 5,000 unit SQ BID [facility] Last Admin: 05/09/19 09:06 Dose: 5,000 unit Potassium Chloride 20 meq/ (Amino Acids) 1,010 mls @ 42 mls/hr IVPB Q24H [facility] Last Admin: 05/09/19 16:55 Dose: 42 mls/hr Vancomycin HCl 750 mg/ (Dextrose) 250 mls @ 250 mls/hr IVPB Q24H [facility]; Protocol Insulin Aspart (Novolog Vial Sliding Scale -) 1 vial SQ ACHS [facility]; Protocol Last Admin: 05/09/19 16:53 Dose: Not Given Magnesium Oxide (Mag-Ox -) 400 mg PO BID [facility] Last Admin: 05/09/19 09:06 Dose: 400 mg Mirtazapine (Remeron -) 7.5 mg PO HS [facility] Last Admin: 05/08/19 22:33 Dose: 7.5 mg Miscellaneous (Duragesic Patch Waste) 1 each TD PRN PRN PRN Reason: PATCH REMOVAL Nystatin (Mycostatin Ointment -) 1 applic TP BID [facility] Last Admin: 05/09/19 09:06 Dose: 1 applic Ondansetron HCl (Zofran -) 4 mg PO Q6H PRN PRN Reason: NAUSEA Pantoprazole Sodium (Protonix Iv) 40 mg IVPUSH BID [facility] Last Admin: 05/09/19 09:05 Dose: 40 mg Potassium Phos/Sodium Phos (Phos-Nak Packet -) 1 packet PO BID [facility] Last Admin: 05/09/19 09:06 Dose: 1 packet - Objective Vital Signs: Vital Signs Temperature 98.1 F 05/09/19 11:02 Pulse Rate 90 05/09/19 11:02 Respiratory Rate 20 05/09/19 11:02 Blood Pressure 110/50 L 05/09/19 11:02 O2 Sat by Pulse Oximetry (%) 94 L 05/09/19 09:00 Constitutional: Yes: No Distress, Calm Eyes: Yes: Conjunctiva Clear HENT: Yes: Atraumatic Cardiovascular: Yes: Regular Rate and Rhythm Respiratory: Yes: Regular, CTA Bilaterally Gastrointestinal: Yes: Normal Bowel Sounds, Soft, Tenderness (llq) Genitourinary: Yes: Incontinence Musculoskeletal: Yes: Muscle Weakness Extremities: Yes: WNL Edema: No Integumentary: Yes: Erythema (L hand) Neurological: Yes: Alert, Oriented Psychiatric: Yes: Alert, Oriented Labs: CBC, BMP 05/07/19 06:10 05/09/19 06:10 Microbiology 04/26/19 16:00 Blood - Peripheral Venous Blood Culture - Final NO GROWTH AFTER 5 DAYS INCUBATION 04/26/19 16:00 Blood - Peripheral Venous Blood Culture - Final NO GROWTH AFTER 5 DAYS INCUBATION 04/27/19 07:00 Urine - Urine Clean Catch Urine Culture - Final Group D Strep Or Entero Coccus Problem List - Problems (1) Abdominal pain Assessment/Plan: -GI on board -Abd/Pelvic CT scan shows RLL consolidation/pneumonia, posteriorly, cannot rule out underlying pathology/mass, interval suggestion of a couple of low- attenuation lesions in the liver is suspicious of metastasis, residual thickening of sigmoid colon wall with evidence of diverticulosis, , residual tiny extraluminal air pockets posterior to sigmoid colon and questionable residual small collection inseperable from the proximal sigmoid colon wall , essentially stable is size previously visualized low attenuation masslike density in the left lower anterior pelvic wall -Pain control -patient is s/p Abscess drainage with IR 04/28/19 Code(s): R10.9 - UNSPECIFIED ABDOMINAL PAIN (2) Diabetes Assessment/Plan: -BGM ACHS -ISS -diabetic diet -A1c 5.4% Code(s): E11.9 - TYPE 2 DIABETES MELLITUS WITHOUT COMPLICATIONS (3) History of ESBL E. coli infection Assessment/Plan: -Contact precaution -ID on board Code(s): Z86.19 - PERSONAL HISTORY OF OTHER INFECTIOUS AND PARASITIC DISEASES (4) Metastatic lung cancer (metastasis from lung to other site) Assessment/Plan: -Fentanyl patch -Oncology on board -pain control Code(s): C34.90 - MALIGNANT NEOPLASM OF UNSP PART OF UNSP BRONCHUS OR LUNG Qualifiers: Laterality: left Qualified Code(s): C34.92 - Malignant neoplasm of unspecified part of left bronchus or lung (5) Pneumonia Assessment/Plan: -ID on board -afebrile -O2 via NC -keep SpO2 >90% -completed ABT Code(s): J18.9 - PNEUMONIA, UNSPECIFIED ORGANISM (6) Nausea Assessment/Plan: -zofran prn Code(s): R11.0 - NAUSEA (7) Hand pain, left Assessment/Plan: -ID on board -Vancomycin -repeat BC -WBC 17.8 -afebrile Code(s): M79.642 - PAIN IN LEFT HAND Assessment/Plan see problem list dvt ppx
[2019-05-09] MEDS: VANCOMYCIN 750 MG in DEXTROSE 5%-WATER - 250 ML IVPB SCH (17:33)
[2019-05-09] MEDS ORDERED: INSULIN (NOVOLOG) ASPART 100 UNITS/ML 10ML VIAL ONE (21:10)
[2019-05-09] MEDS: MIRTAZAPINE 15 MG TABLET (FP) PO SCH (21:54)
[2019-05-10] MEDS: INSULIN SLIDING SCALE (NOVOLOG) 1 VIAL SQ SCH ×4 (06:30→22:07)
--- NOTE | 2019-05-10 09:21 | PN ---
Progress Note (short form) - Note Progress Note: Renal follow up for hyponatremia Coverage for Dr. Ramirez Seen and examined at the bedside awake and alert c/o abd pain oral intake is improved from admission but still poor as per nurse no confusion, lethargy, seizures Vital Signs Temperature 97.9 F 05/10/19 05:56 Pulse Rate 99 H 05/10/19 05:56 Respiratory Rate 17 05/10/19 05:56 Blood Pressure 116/63 05/10/19 05:56 O2 Sat by Pulse Oximetry (%) 94 L 05/09/19 21:00 Intake & Output 05/07/19 05/08/19 05/09/19 05/10/19 23:59 23:59 23:59 23:59 Intake Total 2037 740 1046 300 Balance 2037 740 1046 300 NAD awake and alert neck supple RRR CTA + abd tenderness no LE edema CBC, BMP 05/07/19 06:10 05/09/19 06:10 Current Medications Acetaminophen (Tylenol -) 650 mg PO Q4H PRN PRN Reason: PAIN LEVEL 6-10 Last Admin: 05/06/19 10:36 Dose: 650 mg Docusate Sodium (Colace -) 100 mg PO DAILY [facility] Last Admin: 05/09/19 09:05 Dose: 100 mg Fentanyl (Duragesic 50mcg Patch -) 1 patch TD Q72H [facility] Last Admin: 05/08/19 22:45 Dose: Not Given Ferrous Sulfate (Feosol -) 325 mg PO DAILY [facility] Last Admin: 05/09/19 09:05 Dose: 325 mg Folic Acid (Folic Acid -) 1 mg PO DAILY [facility] Last Admin: 05/09/19 09:05 Dose: 1 mg Heparin Sodium (Porcine) (Heparin -) 5,000 unit SQ BID [facility] Last Admin: 05/09/19 21:55 Dose: 5,000 unit Potassium Chloride 20 meq/ (Amino Acids) 1,010 mls @ 42 mls/hr IVPB Q24H [facility] Last Admin: 05/09/19 16:55 Dose: 42 mls/hr Vancomycin HCl 750 mg/ (Dextrose) 250 mls @ 250 mls/hr IVPB Q24H [facility]; Protocol Last Admin: 05/09/19 17:33 Dose: 250 mls/hr Insulin Aspart (Novolog Vial Sliding Scale -) 1 vial SQ ACHS [facility]; Protocol Last Admin: 05/10/19 06:30 Dose: Not Given Magnesium Oxide (Mag-Ox -) 400 mg PO BID [facility] Last Admin: 05/09/19 21:55 Dose: 400 mg Mirtazapine (Remeron -) 7.5 mg PO HS [facility] Last Admin: 05/09/19 21:54 Dose: 7.5 mg Miscellaneous (Duragesic Patch Waste) 1 each TD PRN PRN PRN Reason: PATCH REMOVAL Nystatin (Mycostatin Ointment -) 1 applic TP BID [facility] Last Admin: 05/09/19 21:58 Dose: 1 applic Ondansetron HCl (Zofran -) 4 mg PO Q6H PRN PRN Reason: NAUSEA Pantoprazole Sodium (Protonix Iv) 40 mg IVPUSH BID [facility] Last Admin: 05/09/19 21:55 Dose: 40 mg Potassium Phos/Sodium Phos (Phos-Nak Packet -) 1 packet PO BID [facility] Last Admin: 05/09/19 21:54 Dose: 1 packet Impression 1. hypokalemia 2. lung cancer 3. DM 4. malnutrition 5. pna 6. malnutrition 7. r/o gout 8. hyponatremia 9. failure to thrive 10. cellulitis Plan todays labs pending oral intake remains poor and pt is on IV Clinamix which is hypotonic if Na continues to downtrend will add NaCl tabs Trend BMP daily no acute indication for 3% saline Manoj Chaudhary DO
[2019-05-10] MEDS: NAPH,MB-DB/K PH,MBDB POWDER PACKET PO SCH ×2 (09:59→21:56)
[2019-05-10] MEDS: HEPARIN NA (PORCINE) 5,000 UNITS/ML 1ML VIAL SQ SCH ×2 (09:59→21:56)
[2019-05-10] MEDS: ACETAMINOPHEN 325 MG TABLET (FP) PO PRN (09:59)
[2019-05-10] MEDS: NYSTATIN 100000 UNIT/GM TOPICAL OINTMENT 15 GM TUBE TP SCH ×2 (10:03→21:57)
[2019-05-10] MEDS: MAGNESIUM OXIDE 400 MG TABLET (FP) PO SCH ×2 (10:03→21:56)
[2019-05-10] MEDS: FERROUS SO4 325 MG TABLET (FP) PO SCH (10:03)
[2019-05-10] MEDS: DOCUSATE SODIUM 100 MG CAPSULE (FP) PO SCH (10:03)
[2019-05-10] MEDS: PANTOPRAZOLE SODIUM 40 MG VIAL IVPUSH SCH ×2 (10:03→21:56)
[2019-05-10] MEDS: FOLIC ACID 1 MG TABLET (FP) PO SCH (10:03)
[2019-05-10 11:16] LABS: BLOOD UREA NITROGEN 17.4 mg/dL (7-18); CALCIUM 8.9 mg/dL (8.5-10.1); CREATININE 0.5 mg/dL (0.55-1.3); PHOSPHOROUS 3.7 mg/dL (2.5-4.9); POTASSIUM 4.3 mmol/L (3.5-5.1)
--- NOTE | 2019-05-10 11:52 | PN ---
Progress Note, Physician - Current Medication List Current Medications: Active Medications Acetaminophen (Tylenol -) 650 mg PO Q4H PRN PRN Reason: PAIN LEVEL 6-10 Last Admin: 05/10/19 09:59 Dose: 650 mg Docusate Sodium (Colace -) 100 mg PO DAILY [facility] Last Admin: 05/10/19 10:03 Dose: 100 mg Fentanyl (Duragesic 50mcg Patch -) 1 patch TD Q72H [facility] Last Admin: 05/08/19 22:45 Dose: Not Given Ferrous Sulfate (Feosol -) 325 mg PO DAILY [facility] Last Admin: 05/10/19 10:03 Dose: 325 mg Folic Acid (Folic Acid -) 1 mg PO DAILY [facility] Last Admin: 05/10/19 10:03 Dose: 1 mg Heparin Sodium (Porcine) (Heparin -) 5,000 unit SQ BID [facility] Last Admin: 05/10/19 09:59 Dose: 5,000 unit Potassium Chloride 20 meq/ (Amino Acids) 1,010 mls @ 42 mls/hr IVPB Q24H [facility] Last Admin: 05/09/19 16:55 Dose: 42 mls/hr Vancomycin HCl 750 mg/ (Dextrose) 250 mls @ 250 mls/hr IVPB Q24H [facility]; Protocol Last Admin: 05/09/19 17:33 Dose: 250 mls/hr Insulin Aspart (Novolog Vial Sliding Scale -) 1 vial SQ ACHS [facility]; Protocol Last Admin: 05/10/19 06:30 Dose: Not Given Magnesium Oxide (Mag-Ox -) 400 mg PO BID [facility] Last Admin: 05/10/19 10:03 Dose: 400 mg Mirtazapine (Remeron -) 7.5 mg PO HS [facility] Last Admin: 05/09/19 21:54 Dose: 7.5 mg Miscellaneous (Duragesic Patch Waste) 1 each TD PRN PRN PRN Reason: PATCH REMOVAL Nystatin (Mycostatin Ointment -) 1 applic TP BID [facility] Last Admin: 05/10/19 10:03 Dose: 1 applic Ondansetron HCl (Zofran -) 4 mg PO Q6H PRN PRN Reason: NAUSEA Pantoprazole Sodium (Protonix Iv) 40 mg IVPUSH BID [facility] Last Admin: 05/10/19 10:03 Dose: 40 mg Potassium Phos/Sodium Phos (Phos-Nak Packet -) 1 packet PO BID [facility] Last Admin: 05/10/19 09:59 Dose: 1 packet - Objective Vital Signs: Vital Signs Temperature 98.6 F 05/10/19 09:21 Pulse Rate 95 H 05/10/19 09:21 Respiratory Rate 18 05/10/19 09:21 Blood Pressure 112/52 L 05/10/19 09:21 O2 Sat by Pulse Oximetry (%) 93 L 05/10/19 09:00 Cardiovascular: Yes: S1, S2 Respiratory: Yes: Rales, Rhonchi Gastrointestinal: Yes: Normal Bowel Sounds, Soft Labs: CBC, BMP 05/07/19 06:10 05/10/19 09:13 Assessment/Plan - Problems (1) Abdominal pain Assessment/Plan: -GI on board -Abd/Pelvic CT scan shows RLL consolidation/pneumonia, posteriorly, cannot rule out underlying pathology/mass, interval suggestion of a couple of low- attenuation lesions in the liver is suspicious of metastasis, residual thickening of sigmoid colon wall with evidence of diverticulosis, , residual tiny extraluminal air pockets posterior to sigmoid colon and questionable residual small collection inseperable from the proximal sigmoid colon wall , essentially stable is size previously visualized low attenuation masslike density in the left lower anterior pelvic wall -Pain control -patient is s/p Abscess drainage with IR 04/28/19 Code(s): R10.9 - UNSPECIFIED ABDOMINAL PAIN (2) Diabetes Assessment/Plan: -BGM ACHS -ISS -diabetic diet -A1c 5.4% Code(s): E11.9 - TYPE 2 DIABETES MELLITUS WITHOUT COMPLICATIONS (3) History of ESBL E. coli infection Assessment/Plan: -Contact precaution -ID on board Code(s): Z86.19 - PERSONAL HISTORY OF OTHER INFECTIOUS AND PARASITIC DISEASES (4) Metastatic lung cancer (metastasis from lung to other site) Assessment/Plan: -Fentanyl patch -Oncology on board -pain control Code(s): C34.90 - MALIGNANT NEOPLASM OF UNSP PART OF UNSP BRONCHUS OR LUNG Qualifiers: Laterality: left Qualified Code(s): C34.92 - Malignant neoplasm of unspecified part of left bronchus or lung (5) Pneumonia Assessment/Plan: -ID on board -afebrile -O2 via NC -keep SpO2 >90% -completed ABT Code(s): J18.9 - PNEUMONIA, UNSPECIFIED ORGANISM (6) Nausea Assessment/Plan: -zofran prn Code(s): R11.0 - NAUSEA (7) Hand pain, left Assessment/Plan: -ID on board -Vancomycin -repeat BC -WBC 17.8 -afebrile Code(s): M79.642 - PAIN IN LEFT HAND
--- NOTE | 2019-05-10 13:06 | PN ---
Progress Note (short form) - Note Progress Note: reports hand is improved Vital Signs Period Temp Pulse Resp BP Sys/Paulson Pulse Ox Last 24 Hr 97.9 F-98.6 F 95-104 17-20 112-140/52-71 93-94 cor-rrr lungs clear abd soft,less tender less erythema of the hand CBC, BMP 05/07/19 06:10 05/10/19 09:13 Microbiology 04/26/19 16:00 Blood - Peripheral Venous Blood Culture - Final NO GROWTH AFTER 5 DAYS INCUBATION 04/26/19 16:00 Blood - Peripheral Venous Blood Culture - Final NO GROWTH AFTER 5 DAYS INCUBATION 04/27/19 07:00 Urine - Urine Clean Catch Urine Culture - Final Group D Strep Or Entero Coccus a/p cellulitis left hand-improved blood cultures pending continue vancomycin metastatic lung cancer Problem List - Problems (1) Abdominal pain Code(s): R10.9 - UNSPECIFIED ABDOMINAL PAIN (2) Abdominal fluid collection Code(s): R18.8 - OTHER ASCITES (3) Metastatic lung cancer (metastasis from lung to other site) Code(s): C34.90 - MALIGNANT NEOPLASM OF UNSP PART OF UNSP BRONCHUS OR LUNG Qualifiers: Laterality: left Qualified Code(s): C34.92 - Malignant neoplasm of unspecified part of left bronchus or lung
[2019-05-10] MEDS: morphine SO4 SUSTAINED ACTING 30 MG TABLET.SA PO SCH ×2 (14:13→19:33)
[2019-05-10] MEDS ORDERED: PT OWN MED DRAWER 7, Y5N ONE (15:34)
[2019-05-10] MEDS: VANCOMYCIN 750 MG in DEXTROSE 5%-WATER - 250 ML IVPB SCH (15:54)
[2019-05-10] MEDS: POTASSIUM CHLORIDE 20 MEQ in AMINO ACIDS 4.25%/D5W 1,000 ML IVPB SCH (17:09)
[2019-05-10] MEDS: MIRTAZAPINE 15 MG TABLET (FP) PO SCH (21:57)
[2019-05-11] MEDS: morphine SO4 SUSTAINED ACTING 30 MG TABLET.SA PO SCH ×3 (04:29→20:30)
[2019-05-11] MEDS: INSULIN SLIDING SCALE (NOVOLOG) 1 VIAL SQ SCH ×4 (06:17→21:44)
[2019-05-11 07:35] LABS: BASO % 1.3 % (0-2.0); EOS % 2.9 % (0-4.5); HEMATOCRIT 24.7 % (32.4-45.2); HEMOGLOBIN 8.3 GM/dL (10.7-15.3); LYMPH % 13.8 % (8-40); MCH 28.6 pg (25.7-33.7); MCHC 33.7 g/dl (32.0-36.0); MEAN CELL VOLUME 85.1 fl (80-96); MEAN PLT VOLUME 7.5 fl (7.5-11.1); MONO % 6.9 % (3.8-10.2); NEUT % 75.1 % (42.8-82.8); PLATELET COUNT 497 K/MM3 (134-434); RDW 20.1 % (11.6-15.6); WHITE BLOOD COUNT 13.5 K/mm3 (4.0-10.0)
[2019-05-11 07:52] LABS: BILIRUBIN,TOTAL 0.2 mg/dL (0.2-1); BLOOD UREA NITROGEN 17.1 mg/dL (7-18); CALCIUM 8.5 mg/dL (8.5-10.1); CREATININE 0.5 mg/dL (0.55-1.3); POTASSIUM 4.6 mmol/L (3.5-5.1); TOT PROT 6.9 g/dl (6.4-8.2)
--- NOTE | 2019-05-11 09:25 | PN ---
Progress Note (short form) - Note Progress Note: Renal follow up for hyponatremia Coverage for Dr. Ramirez Seen and examined at the bedside awake and alert continues to have abdominal pain on IV clinimix has poor oral intake as per nurse Vital Signs Temperature 98.4 F 05/10/19 22:00 Pulse Rate 99 H 05/10/19 22:00 Respiratory Rate 18 05/10/19 22:00 Blood Pressure 108/48 L 05/10/19 22:00 O2 Sat by Pulse Oximetry (%) 97 05/10/19 21:00 Intake & Output 05/08/19 05/09/19 05/10/19 05/11/19 23:59 23:59 23:59 23:59 Intake Total 740 1046 1780 736 Balance 740 1046 1780 736 NAD awake and alert neck supple RRR CTA + abd tenderness no LE edema CBC, BMP 05/11/19 06:10 05/11/19 06:10 Current Medications Acetaminophen (Tylenol -) 650 mg PO Q4H PRN PRN Reason: PAIN LEVEL 6-10 Last Admin: 05/10/19 09:59 Dose: 650 mg Docusate Sodium (Colace -) 100 mg PO DAILY [facility] Last Admin: 05/10/19 10:03 Dose: 100 mg Fentanyl (Duragesic 50mcg Patch -) 1 patch TD Q72H [facility] Last Admin: 05/08/19 22:45 Dose: Not Given Ferrous Sulfate (Feosol -) 325 mg PO DAILY [facility] Last Admin: 05/10/19 10:03 Dose: 325 mg Folic Acid (Folic Acid -) 1 mg PO DAILY [facility] Last Admin: 05/10/19 10:03 Dose: 1 mg Heparin Sodium (Porcine) (Heparin -) 5,000 unit SQ BID [facility] Last Admin: 05/10/19 21:56 Dose: 5,000 unit Potassium Chloride 20 meq/ (Amino Acids) 1,010 mls @ 42 mls/hr IVPB Q24H [facility] Last Admin: 05/10/19 17:09 Dose: 42 mls/hr Vancomycin HCl 750 mg/ (Dextrose) 250 mls @ 250 mls/hr IVPB Q24H [facility]; Protocol Last Admin: 05/10/19 15:54 Dose: 250 mls/hr Insulin Aspart (Novolog Vial Sliding Scale -) 1 vial SQ ACHS [facility]; Protocol Last Admin: 05/11/19 06:17 Dose: Not Given Magnesium Oxide (Mag-Ox -) 400 mg PO BID [facility] Last Admin: 05/10/19 21:56 Dose: 400 mg Mirtazapine (Remeron -) 7.5 mg PO HS [facility] Last Admin: 05/10/19 21:57 Dose: 7.5 mg Miscellaneous (Duragesic Patch Waste) 1 each TD PRN PRN PRN Reason: PATCH REMOVAL Morphine Sulfate (Ms Contin -) 30 mg PO Q8H [facility] Last Admin: 05/11/19 04:29 Dose: 30 mg Nystatin (Mycostatin Ointment -) 1 applic TP BID [facility] Last Admin: 05/10/19 21:57 Dose: 1 applic Ondansetron HCl (Zofran -) 4 mg PO Q6H PRN PRN Reason: NAUSEA Pantoprazole Sodium (Protonix Iv) 40 mg IVPUSH BID [facility] Last Admin: 05/10/19 21:56 Dose: 40 mg Potassium Phos/Sodium Phos (Phos-Nak Packet -) 1 packet PO BID [facility] Last Admin: 05/10/19 21:56 Dose: 1 packet Impression 1. hypokalemia 2. lung cancer 3. DM 4. malnutrition 5. pna 6. malnutrition 7. r/o gout 8. hyponatremia 9. failure to thrive 10. cellulitis Plan Serum Na improved to 130 and stable over 48 hours encourged oral intake as tolerated if Na downtrends would consider addition of NaCl tabs Trend BMP daily no acute indication for 3% saline Manoj Chaudhary DO
[2019-05-11] MEDS: HEPARIN NA (PORCINE) 5,000 UNITS/ML 1ML VIAL SQ SCH ×2 (09:34→21:19)
[2019-05-11] MEDS: FOLIC ACID 1 MG TABLET (FP) PO SCH (09:34)
[2019-05-11] MEDS: NAPH,MB-DB/K PH,MBDB POWDER PACKET PO SCH ×2 (09:34→21:19)
[2019-05-11] MEDS: PANTOPRAZOLE SODIUM 40 MG VIAL IVPUSH SCH ×2 (09:34→21:19)
[2019-05-11] MEDS: FERROUS SO4 325 MG TABLET (FP) PO SCH (09:35)
[2019-05-11] MEDS: DOCUSATE SODIUM 100 MG CAPSULE (FP) PO SCH (09:35)
[2019-05-11] MEDS: MAGNESIUM OXIDE 400 MG TABLET (FP) PO SCH ×2 (09:35→21:20)
[2019-05-11] MEDS: NYSTATIN 100000 UNIT/GM TOPICAL OINTMENT 15 GM TUBE TP SCH ×2 (09:36→21:20)
--- NOTE | 2019-05-11 11:27 | PN ---
Progress Note, Physician - Current Medication List Current Medications: Active Medications Acetaminophen (Tylenol -) 650 mg PO Q4H PRN PRN Reason: PAIN LEVEL 6-10 Last Admin: 05/10/19 09:59 Dose: 650 mg Docusate Sodium (Colace -) 100 mg PO DAILY [facility] Last Admin: 05/11/19 09:35 Dose: 100 mg Fentanyl (Duragesic 50mcg Patch -) 1 patch TD Q72H [facility] Last Admin: 05/08/19 22:45 Dose: Not Given Ferrous Sulfate (Feosol -) 325 mg PO DAILY [facility] Last Admin: 05/11/19 09:35 Dose: 325 mg Folic Acid (Folic Acid -) 1 mg PO DAILY [facility] Last Admin: 05/11/19 09:34 Dose: 1 mg Heparin Sodium (Porcine) (Heparin -) 5,000 unit SQ BID [facility] Last Admin: 05/11/19 09:34 Dose: 5,000 unit Potassium Chloride 20 meq/ (Amino Acids) 1,010 mls @ 42 mls/hr IVPB Q24H [facility] Last Admin: 05/10/19 17:09 Dose: 42 mls/hr Vancomycin HCl 750 mg/ (Dextrose) 250 mls @ 250 mls/hr IVPB Q24H [facility]; Protocol Last Admin: 05/10/19 15:54 Dose: 250 mls/hr Insulin Aspart (Novolog Vial Sliding Scale -) 1 vial SQ ACHS [facility]; Protocol Last Admin: 05/11/19 06:17 Dose: Not Given Magnesium Oxide (Mag-Ox -) 400 mg PO BID [facility] Last Admin: 05/11/19 09:35 Dose: 400 mg Mirtazapine (Remeron -) 7.5 mg PO HS [facility] Last Admin: 05/10/19 21:57 Dose: 7.5 mg Miscellaneous (Duragesic Patch Waste) 1 each TD PRN PRN PRN Reason: PATCH REMOVAL Morphine Sulfate (Ms Contin -) 30 mg PO Q8H [facility] Last Admin: 05/11/19 04:29 Dose: 30 mg Nystatin (Mycostatin Ointment -) 1 applic TP BID [facility] Last Admin: 05/11/19 09:36 Dose: 1 applic Ondansetron HCl (Zofran -) 4 mg PO Q6H PRN PRN Reason: NAUSEA Pantoprazole Sodium (Protonix Iv) 40 mg IVPUSH BID [facility] Last Admin: 05/11/19 09:34 Dose: 40 mg Potassium Phos/Sodium Phos (Phos-Nak Packet -) 1 packet PO BID [facility] Last Admin: 05/11/19 09:34 Dose: 1 packet - Objective Vital Signs: Vital Signs Temperature 98.4 F 05/10/19 22:00 Pulse Rate 99 H 05/10/19 22:00 Respiratory Rate 18 05/10/19 22:00 Blood Pressure 108/48 L 05/10/19 22:00 O2 Sat by Pulse Oximetry (%) 97 05/10/19 21:00 Cardiovascular: Yes: S1, S2 Respiratory: Yes: Regular, CTA Bilaterally Gastrointestinal: Yes: Normal Bowel Sounds, Soft, Tenderness Labs: CBC, BMP 05/11/19 06:10 05/11/19 06:10 Assessment/Plan - Problems (1) Abdominal pain Assessment/Plan: -GI on board -Abd/Pelvic CT scan shows RLL consolidation/pneumonia, posteriorly, cannot rule out underlying pathology/mass, interval suggestion of a couple of low- attenuation lesions in the liver is suspicious of metastasis, residual thickening of sigmoid colon wall with evidence of diverticulosis, , residual tiny extraluminal air pockets posterior to sigmoid colon and questionable residual small collection inseperable from the proximal sigmoid colon wall , essentially stable is size previously visualized low attenuation masslike density in the left lower anterior pelvic wall -Pain control -patient is s/p Abscess drainage with IR 04/28/19 Code(s): R10.9 - UNSPECIFIED ABDOMINAL PAIN (2) Diabetes Assessment/Plan: -BGM ACHS -ISS -diabetic diet -A1c 5.4% Code(s): E11.9 - TYPE 2 DIABETES MELLITUS WITHOUT COMPLICATIONS (3) History of ESBL E. coli infection Assessment/Plan: -Contact precaution -ID on board Code(s): Z86.19 - PERSONAL HISTORY OF OTHER INFECTIOUS AND PARASITIC DISEASES (4) Metastatic lung cancer (metastasis from lung to other site) Assessment/Plan: -Fentanyl patch -Oncology on board -pain control Code(s): C34.90 - MALIGNANT NEOPLASM OF UNSP PART OF UNSP BRONCHUS OR LUNG Qualifiers: Laterality: left Qualified Code(s): C34.92 - Malignant neoplasm of unspecified part of left bronchus or lung (5) Pneumonia Assessment/Plan: -ID on board -afebrile -O2 via NC -keep SpO2 >90% -completed ABT Code(s): J18.9 - PNEUMONIA, UNSPECIFIED ORGANISM (6) Nausea Assessment/Plan: -zofran prn Code(s): R11.0 - NAUSEA (7) Hand pain, left Assessment/Plan: -ID on board -Vancomycin -repeat BC -WBC 17.8 -afebrile Code(s): M79.642 - PAIN IN LEFT HAND
[2019-05-11] MEDS ORDERED: PT OWN MED DRAWER 7, Y5N ONE (16:15)
[2019-05-11] MEDS: VANCOMYCIN 750 MG in DEXTROSE 5%-WATER - 250 ML IVPB SCH (16:29)
[2019-05-11] MEDS: POTASSIUM CHLORIDE 20 MEQ in AMINO ACIDS 4.25%/D5W 1,000 ML IVPB SCH (18:17)
[2019-05-11] MEDS ORDERED: INSULIN (NOVOLOG) ASPART 100 UNITS/ML 10ML VIAL ONE (21:14)
[2019-05-11] MEDS: MIRTAZAPINE 15 MG TABLET (FP) PO SCH (21:19)
[2019-05-11] MEDS: fentaNYL 50mcg/hr PATCH.TD72 TD SCH (21:57)
[2019-05-12] MEDS: morphine SO4 SUSTAINED ACTING 30 MG TABLET.SA PO SCH ×3 (04:29→21:37)
[2019-05-12] MEDS: INSULIN SLIDING SCALE (NOVOLOG) 1 VIAL SQ SCH ×4 (06:42→22:23)
[2019-05-12] MEDS ORDERED: PT OWN MED DRAWER 7, Y5N ONE ×3 (06:47→17:57)
[2019-05-12 08:49] LABS: BASO % 1.2 % (0-2.0); EOS % 4.1 % (0-4.5); HEMATOCRIT 24.6 % (32.4-45.2); HEMOGLOBIN 8.1 GM/dL (10.7-15.3); LYMPH % 14.7 % (8-40); MCH 28.4 pg (25.7-33.7); MEAN CELL VOLUME 86.2 fl (80-96); MEAN PLT VOLUME 7.3 fl (7.5-11.1); MONO % 10.1 % (3.8-10.2); NEUT % 69.9 % (42.8-82.8); PLATELET COUNT 485 K/MM3 (134-434); RBC 2.86 M/mm3 (3.60-5.2); RDW 20.1 % (11.6-15.6); WHITE BLOOD COUNT 13.3 K/mm3 (4.0-10.0)
[2019-05-12 08:54] LABS: BILIRUBIN,TOTAL 0.2 mg/dL (0.2-1); BLOOD UREA NITROGEN 15.3 mg/dL (7-18); CALCIUM 8.2 mg/dL (8.5-10.1); CREATININE 0.5 mg/dL (0.55-1.3); POTASSIUM 4.3 mmol/L (3.5-5.1); TOT PROT 6.8 g/dl (6.4-8.2)
[2019-05-12] MEDS: HEPARIN NA (PORCINE) 5,000 UNITS/ML 1ML VIAL SQ SCH ×2 (09:45→21:37)
[2019-05-12] MEDS: MAGNESIUM OXIDE 400 MG TABLET (FP) PO SCH ×2 (09:45→21:36)
[2019-05-12] MEDS: FOLIC ACID 1 MG TABLET (FP) PO SCH (09:45)
[2019-05-12] MEDS: DOCUSATE SODIUM 100 MG CAPSULE (FP) PO SCH (09:45)
[2019-05-12] MEDS: NAPH,MB-DB/K PH,MBDB POWDER PACKET PO SCH ×2 (09:46→21:37)
[2019-05-12] MEDS: PANTOPRAZOLE SODIUM 40 MG VIAL IVPUSH SCH ×2 (09:46→21:36)
[2019-05-12] MEDS: NYSTATIN 100000 UNIT/GM TOPICAL OINTMENT 15 GM TUBE TP SCH ×2 (09:46→21:37)
--- NOTE | 2019-05-12 11:32 | PN ---
Progress Note, Physician History of Present Illness: Pt seen and examined at bedside. She is awake and alert. Not much change in clinical status. - Current Medication List Current Medications: Active Medications Acetaminophen (Tylenol -) 650 mg PO Q4H PRN PRN Reason: PAIN LEVEL 6-10 Last Admin: 05/10/19 09:59 Dose: 650 mg Docusate Sodium (Colace -) 100 mg PO DAILY [facility] Last Admin: 05/12/19 09:45 Dose: 100 mg Fentanyl (Duragesic 50mcg Patch -) 1 patch TD Q72H [facility] Last Admin: 05/11/19 21:57 Dose: 1 patch Folic Acid (Folic Acid -) 1 mg PO DAILY [facility] Last Admin: 05/12/19 09:45 Dose: 1 mg Heparin Sodium (Porcine) (Heparin -) 5,000 unit SQ BID [facility] Last Admin: 05/12/19 09:45 Dose: 5,000 unit Potassium Chloride 20 meq/ (Amino Acids) 1,010 mls @ 42 mls/hr IVPB Q24H [facility] Last Admin: 05/11/19 18:17 Dose: 42 mls/hr Vancomycin HCl 750 mg/ (Dextrose) 250 mls @ 250 mls/hr IVPB Q24H [facility]; Protocol Last Admin: 05/11/19 16:29 Dose: 250 mls/hr Insulin Aspart (Novolog Vial Sliding Scale -) 1 vial SQ ACHS [facility]; Protocol Last Admin: 05/12/19 11:17 Dose: Not Given Magnesium Oxide (Mag-Ox -) 400 mg PO BID [facility] Last Admin: 05/12/19 09:45 Dose: 400 mg Mirtazapine (Remeron -) 7.5 mg PO HS [facility] Last Admin: 05/11/19 21:19 Dose: 7.5 mg Miscellaneous (Duragesic Patch Waste) 1 each TD PRN PRN PRN Reason: PATCH REMOVAL Morphine Sulfate (Ms Contin -) 30 mg PO Q8H [facility] Last Admin: 05/12/19 11:15 Dose: 30 mg Nystatin (Mycostatin Ointment -) 1 applic TP BID [facility] Last Admin: 05/12/19 09:46 Dose: 1 applic Ondansetron HCl (Zofran -) 4 mg PO Q6H PRN PRN Reason: NAUSEA Pantoprazole Sodium (Protonix Iv) 40 mg IVPUSH BID [facility] Last Admin: 05/12/19 09:46 Dose: 40 mg Potassium Phos/Sodium Phos (Phos-Nak Packet -) 1 packet PO BID [facility] Last Admin: 05/12/19 09:46 Dose: 1 packet - Objective Vital Signs: Vital Signs Temperature 98.7 F 05/12/19 10:20 Pulse Rate 111 H 05/12/19 10:20 Respiratory Rate 20 05/12/19 10:20 Blood Pressure 107/54 L 05/12/19 10:20 O2 Sat by Pulse Oximetry (%) 92 L 05/12/19 09:00 Constitutional: Yes: Calm Eyes: Yes: Conjunctiva Clear HENT: Yes: Atraumatic Cardiovascular: Yes: S1, S2 Respiratory: Yes: CTA Bilaterally Gastrointestinal: Yes: Soft Genitourinary: Yes: WNL Musculoskeletal: Yes: WNL Extremities: Yes: Other (left hand pain resolved) Neurological: Yes: Oriented Psychiatric: Yes: Oriented Labs: CBC, BMP 05/12/19 06:50 05/12/19 06:50 Assessment/Plan Current Medications Generic Name Dose Route Start Last Admin Trade Name Freq PRN Reason Stop Dose Admin Acetaminophen 650 mg 04/26/19 22:41 05/10/19 09:59 Tylenol - PO 650 mg Q4H PRN Administration PAIN LEVEL 6-10 Docusate Sodium 100 mg 05/06/19 16:45 05/12/19 09:45 Colace - PO 100 mg DAILY [facility] Administration Fentanyl 1 patch 04/26/19 22:45 05/11/19 21:57 Duragesic 50mcg Patch - TD 1 patch Q72H [facility] Administration Folic Acid 1 mg 04/27/19 10:00 05/12/19 09:45 Folic Acid - PO 1 mg DAILY [facility] Administration Heparin Sodium (Porcine) 5,000 unit 04/27/19 10:00 05/12/19 09:45 Heparin - SQ 5,000 unit BID [facility] Administration Potassium Chloride 20 meq/ 1,010 mls @ 42 mls/hr 05/02/19 17:00 05/11/19 18: 17 Amino Acids IVPB 42 mls/hr Q24H [facility] Administration Vancomycin HCl 750 mg/ 250 mls @ 250 mls/hr 05/09/19 16:00 05/11/19 16:29 Dextrose IVPB 250 mls/hr Q24H [facility] Administration Protocol Insulin Aspart 1 vial 04/27/19 07:00 05/12/19 11:17 Novolog Vial Sliding Scale - SQ Not Given ACHS [facility] Protocol Magnesium Oxide 400 mg 05/01/19 22:00 05/12/19 09:45 Mag-Ox - PO 400 mg BID [facility] Administration Mirtazapine 7.5 mg 05/04/19 22:00 05/11/19 21:19 Remeron - PO 7.5 mg HS [facility] Administration Miscellaneous 1 each 04/26/19 22:56 Duragesic Patch Waste TD PRN PRN PATCH REMOVAL Morphine Sulfate 30 mg 05/10/19 12:00 05/12/19 11:15 Ms Contin - PO 30 mg Q8H [facility] Administration Nystatin 1 applic 04/29/19 22:00 05/12/19 09:46 Mycostatin Ointment - TP 1 applic BID [facility] Administration Ondansetron HCl 4 mg 04/29/19 15:38 Zofran - PO Q6H PRN NAUSEA Pantoprazole Sodium 40 mg 04/27/19 14:57 05/12/19 09:46 Protonix Iv IVPUSH 40 mg BID [facility] Administration Potassium Phos/Sodium Phos 1 packet 05/01/19 22:00 05/12/19 09:46 Phos-Nak Packet - PO 1 packet BID [facility] Administration Impression 1. hypokalemia 2. lung cancer 3. DM 4. malnutrition 5. pna 6. malnutrition 7. r/o gout 8. hyponatremia 9. failure to thrive 10. cellulitis Plan - sodium improving - encourage PO intake - check phos levels - will need to discuss overall goals of care
--- NOTE | 2019-05-12 13:44 | PN ---
Progress Note, Physician Chief Complaint: Abdominal Pain History of Present Illness: Previous notes and events reviewed awake and alert NAD no acute events overnight denies chest pain or SOB patient is pending approval for home hospice, will be evaluated by [facility] tomorrow complain of llq pain - Current Medication List Current Medications: Active Medications Acetaminophen (Tylenol -) 650 mg PO Q4H PRN PRN Reason: PAIN LEVEL 6-10 Last Admin: 05/10/19 09:59 Dose: 650 mg Docusate Sodium (Colace -) 100 mg PO DAILY [facility] Last Admin: 05/12/19 09:45 Dose: 100 mg Fentanyl (Duragesic 50mcg Patch -) 1 patch TD Q72H [facility] Last Admin: 05/11/19 21:57 Dose: 1 patch Folic Acid (Folic Acid -) 1 mg PO DAILY [facility] Last Admin: 05/12/19 09:45 Dose: 1 mg Heparin Sodium (Porcine) (Heparin -) 5,000 unit SQ BID [facility] Last Admin: 05/12/19 09:45 Dose: 5,000 unit Potassium Chloride 20 meq/ (Amino Acids) 1,010 mls @ 42 mls/hr IVPB Q24H [facility] Last Admin: 05/11/19 18:17 Dose: 42 mls/hr Vancomycin HCl 750 mg/ (Dextrose) 250 mls @ 250 mls/hr IVPB Q24H [facility]; Protocol Last Admin: 05/11/19 16:29 Dose: 250 mls/hr Insulin Aspart (Novolog Vial Sliding Scale -) 1 vial SQ ACHS [facility]; Protocol Last Admin: 05/12/19 11:17 Dose: Not Given Magnesium Oxide (Mag-Ox -) 400 mg PO BID [facility] Last Admin: 05/12/19 09:45 Dose: 400 mg Mirtazapine (Remeron -) 7.5 mg PO HS [facility] Last Admin: 05/11/19 21:19 Dose: 7.5 mg Miscellaneous (Duragesic Patch Waste) 1 each TD PRN PRN PRN Reason: PATCH REMOVAL Morphine Sulfate (Ms Contin -) 30 mg PO Q8H [facility] Last Admin: 05/12/19 11:15 Dose: 30 mg Nystatin (Mycostatin Ointment -) 1 applic TP BID [facility] Last Admin: 05/12/19 09:46 Dose: 1 applic Ondansetron HCl (Zofran -) 4 mg PO Q6H PRN PRN Reason: NAUSEA Pantoprazole Sodium (Protonix Iv) 40 mg IVPUSH BID [facility] Last Admin: 05/12/19 09:46 Dose: 40 mg Potassium Phos/Sodium Phos (Phos-Nak Packet -) 1 packet PO BID [facility] Last Admin: 05/12/19 09:46 Dose: 1 packet - Objective Vital Signs: Vital Signs Temperature 98.7 F 05/12/19 10:20 Pulse Rate 111 H 05/12/19 10:20 Respiratory Rate 20 05/12/19 10:20 Blood Pressure 107/54 L 05/12/19 10:20 O2 Sat by Pulse Oximetry (%) 92 L 05/12/19 09:00 Constitutional: Yes: No Distress, Calm Eyes: Yes: Conjunctiva Clear HENT: Yes: Atraumatic Cardiovascular: Yes: Regular Rate and Rhythm Respiratory: Yes: Regular, CTA Bilaterally Gastrointestinal: Yes: Normal Bowel Sounds, Soft Genitourinary: Yes: Incontinence Musculoskeletal: Yes: Muscle Weakness Extremities: Yes: WNL Edema: No Peripheral Pulses WNL: No Neurological: Yes: Alert, Pre-Existing Deficit Psychiatric: Yes: Alert Labs: CBC, BMP 05/12/19 06:50 05/12/19 06:50 Microbiology 05/09/19 16:30 Blood - Peripheral Venous Blood Culture - Preliminary NO GROWTH OBTAINED AFTER 48 HOURS, INCUBATION TO CONTINUE FOR 3 DAYS. 05/09/19 16:45 Blood - Peripheral Venous Blood Culture - Preliminary NO GROWTH OBTAINED AFTER 48 HOURS, INCUBATION TO CONTINUE FOR 3 DAYS. 04/26/19 16:00 Blood - Peripheral Venous Blood Culture - Final NO GROWTH AFTER 5 DAYS INCUBATION 04/26/19 16:00 Blood - Peripheral Venous Blood Culture - Final NO GROWTH AFTER 5 DAYS INCUBATION 04/27/19 07:00 Urine - Urine Clean Catch Urine Culture - Final Group D Strep Or Entero Coccus Problem List - Problems (1) Abdominal pain Assessment/Plan: -GI on board -Abd/Pelvic CT scan shows RLL consolidation/pneumonia, posteriorly, cannot rule out underlying pathology/mass, interval suggestion of a couple of low- attenuation lesions in the liver is suspicious of metastasis, residual thickening of sigmoid colon wall with evidence of diverticulosis, , residual tiny extraluminal air pockets posterior to sigmoid colon and questionable residual small collection inseperable from the proximal sigmoid colon wall , essentially stable is size previously visualized low attenuation masslike density in the left lower anterior pelvic wall -Pain control -patient is s/p Abscess drainage with IR 04/28/19 Code(s): R10.9 - UNSPECIFIED ABDOMINAL PAIN (2) Diabetes Assessment/Plan: -BGM ACHS -ISS -diabetic diet -A1c 5.4% Code(s): E11.9 - TYPE 2 DIABETES MELLITUS WITHOUT COMPLICATIONS (3) History of ESBL E. coli infection Assessment/Plan: -Contact precaution -ID on board Code(s): Z86.19 - PERSONAL HISTORY OF OTHER INFECTIOUS AND PARASITIC DISEASES (4) Metastatic lung cancer (metastasis from lung to other site) Assessment/Plan: -Fentanyl patch -Oncology on board -pain control Code(s): C34.90 - MALIGNANT NEOPLASM OF UNSP PART OF UNSP BRONCHUS OR LUNG Qualifiers: Laterality: left Qualified Code(s): C34.92 - Malignant neoplasm of unspecified part of left bronchus or lung (5) Pneumonia Assessment/Plan: -ID on board -afebrile -O2 via NC -keep SpO2 >90% -completed ABT Code(s): J18.9 - PNEUMONIA, UNSPECIFIED ORGANISM (6) Nausea Assessment/Plan: -zofran prn Code(s): R11.0 - NAUSEA (7) Hand pain, left Assessment/Plan: -ID on board -Vancomycin -repeat BC -WBC 13.3 -afebrile Code(s): M79.642 - PAIN IN LEFT HAND Assessment/Plan see problem list dvt ppx
--- NOTE | 2019-05-12 15:18 | PN ---
Progress Note (short form) - Note Progress Note: alert hand improved abdominal pain unchanged Vital Signs Period Temp Pulse Resp BP Sys/Paulson Pulse Ox Last 24 Hr 97.7 F-98.7 F 90-111 20-20 107-139/50-63 92-95 cor-rrr lungs clear abd soft,midepigastric pain unchanged ext minimal induration left hand, minimal tenderness CBC, BMP 05/12/19 06:50 05/12/19 06:50 Microbiology 05/09/19 16:30 Blood - Peripheral Venous Blood Culture - Preliminary NO GROWTH OBTAINED AFTER 48 HOURS, INCUBATION TO CONTINUE FOR 3 DAYS. 05/09/19 16:45 Blood - Peripheral Venous Blood Culture - Preliminary NO GROWTH OBTAINED AFTER 48 HOURS, INCUBATION TO CONTINUE FOR 3 DAYS. 04/26/19 16:00 Blood - Peripheral Venous Blood Culture - Final NO GROWTH AFTER 5 DAYS INCUBATION 04/26/19 16:00 Blood - Peripheral Venous Blood Culture - Final NO GROWTH AFTER 5 DAYS INCUBATION 04/27/19 07:00 Urine - Urine Clean Catch Urine Culture - Final Group D Strep Or Entero Coccus a/p cellulitis left hand-improved- day #4 vancomycin, would complete 5 days blood cultures pending continue vancomycin metastatic lung cancer Problem List - Problems (1) Abdominal pain Code(s): R10.9 - UNSPECIFIED ABDOMINAL PAIN (2) Abdominal fluid collection Code(s): R18.8 - OTHER ASCITES (3) Metastatic lung cancer (metastasis from lung to other site) Code(s): C34.90 - MALIGNANT NEOPLASM OF UNSP PART OF UNSP BRONCHUS OR LUNG Qualifiers: Laterality: left Qualified Code(s): C34.92 - Malignant neoplasm of unspecified part of left bronchus or lung
[2019-05-12] MEDS: VANCOMYCIN 750 MG in DEXTROSE 5%-WATER - 250 ML IVPB SCH (16:06)
[2019-05-12] MEDS: POTASSIUM CHLORIDE 20 MEQ in AMINO ACIDS 4.25%/D5W 1,000 ML IVPB SCH (17:28)
[2019-05-12] MEDS: MIRTAZAPINE 15 MG TABLET (FP) PO SCH (21:37)
[2019-05-13] MEDS: morphine SO4 SUSTAINED ACTING 30 MG TABLET.SA PO SCH ×3 (05:31→21:44)
[2019-05-13] MEDS: INSULIN SLIDING SCALE (NOVOLOG) 1 VIAL SQ SCH ×4 (06:07→22:29)
[2019-05-13 08:57] LABS: HEMATOCRIT 26.1 % (32.4-45.2); HEMOGLOBIN 8.5 GM/dL (10.7-15.3); MCHC 32.4 g/dl (32.0-36.0); MEAN CELL VOLUME 86.5 fl (80-96); MEAN PLT VOLUME 7.2 fl (7.5-11.1); PLATELET COUNT 476 K/MM3 (134-434); RBC 3.02 M/mm3 (3.60-5.2); WHITE BLOOD COUNT 22.1 K/mm3 (4.0-10.0)
[2019-05-13 09:33] LABS: BILIRUBIN,TOTAL 0.3 mg/dL (0.2-1); CALCIUM 8.4 mg/dL (8.5-10.1); CREATININE 0.5 mg/dL (0.55-1.3); POTASSIUM 4.3 mmol/L (3.5-5.1); TOT PROT 6.8 g/dl (6.4-8.2)
[2019-05-13] MEDS: PANTOPRAZOLE SODIUM 40 MG VIAL IVPUSH SCH ×2 (10:05→21:46)
[2019-05-13] MEDS: HEPARIN NA (PORCINE) 5,000 UNITS/ML 1ML VIAL SQ SCH ×2 (10:05→21:45)
[2019-05-13] MEDS: MAGNESIUM OXIDE 400 MG TABLET (FP) PO SCH ×2 (10:05→21:44)
[2019-05-13] MEDS: DOCUSATE SODIUM 100 MG CAPSULE (FP) PO SCH (10:05)
[2019-05-13] MEDS: FOLIC ACID 1 MG TABLET (FP) PO SCH (10:05)
[2019-05-13] MEDS: NAPH,MB-DB/K PH,MBDB POWDER PACKET PO SCH ×2 (10:05→21:46)
[2019-05-13] MEDS: NYSTATIN 100000 UNIT/GM TOPICAL OINTMENT 15 GM TUBE TP SCH ×2 (10:08→22:31)
--- NOTE | 2019-05-13 15:23 | PN ---
Progress Note, Physician Chief Complaint: Abdominal Pain History of Present Illness: Previous notes and events reviewed awake and alert NAD no acute events overnight denies chest pain or SOB patient is pending approval for home hospice, will be evaluated by [facility] on 05[facility]14[facility]19 - Current Medication List Current Medications: Active Medications Acetaminophen (Tylenol -) 650 mg PO Q4H PRN PRN Reason: PAIN LEVEL 6-10 Last Admin: 05/10/19 09:59 Dose: 650 mg Docusate Sodium (Colace -) 100 mg PO DAILY [facility] Last Admin: 05/13/19 10:05 Dose: Not Given Fentanyl (Duragesic 50mcg Patch -) 1 patch TD Q72H [facility] Last Admin: 05/11/19 21:57 Dose: 1 patch Folic Acid (Folic Acid -) 1 mg PO DAILY [facility] Last Admin: 05/13/19 10:05 Dose: 1 mg Heparin Sodium (Porcine) (Heparin -) 5,000 unit SQ BID [facility] Last Admin: 05/13/19 10:05 Dose: 5,000 unit Potassium Chloride 20 meq/ (Amino Acids) 1,010 mls @ 42 mls/hr IVPB Q24H [facility] Last Admin: 05/12/19 17:28 Dose: 42 mls/hr Vancomycin HCl 750 mg/ (Dextrose) 250 mls @ 250 mls/hr IVPB Q24H [facility]; Protocol Stop: 05/13/19 17:00 Last Admin: 05/12/19 16:06 Dose: 250 mls/hr Insulin Aspart (Novolog Vial Sliding Scale -) 1 vial SQ ACHS [facility]; Protocol Last Admin: 05/13/19 10:57 Dose: Not Given Magnesium Oxide (Mag-Ox -) 400 mg PO BID [facility] Last Admin: 05/13/19 10:05 Dose: 400 mg Mirtazapine (Remeron -) 7.5 mg PO HS [facility] Last Admin: 05/12/19 21:37 Dose: 7.5 mg Miscellaneous (Duragesic Patch Waste) 1 each TD PRN PRN PRN Reason: PATCH REMOVAL Morphine Sulfate (Ms Contin -) 30 mg PO Q8H [facility] Last Admin: 05/13/19 13:57 Dose: 30 mg Nystatin (Mycostatin Ointment -) 1 applic TP BID [facility] Last Admin: 05/13/19 10:08 Dose: 1 applic Ondansetron HCl (Zofran -) 4 mg PO Q6H PRN PRN Reason: NAUSEA Pantoprazole Sodium (Protonix Iv) 40 mg IVPUSH BID [facility] Last Admin: 05/13/19 10:05 Dose: 40 mg Potassium Phos/Sodium Phos (Phos-Nak Packet -) 1 packet PO BID [facility] Last Admin: 05/13/19 10:05 Dose: 1 packet - Objective Vital Signs: Vital Signs Temperature 98.3 F 05/13/19 13:48 Pulse Rate 71 05/13/19 13:48 Respiratory Rate 18 05/13/19 13:48 Blood Pressure 105/56 L 05/13/19 13:48 O2 Sat by Pulse Oximetry (%) 95 05/12/19 21:00 Constitutional: Yes: No Distress, Calm Eyes: Yes: Conjunctiva Clear HENT: Yes: Atraumatic Cardiovascular: Yes: Regular Rate and Rhythm Respiratory: Yes: Regular, CTA Bilaterally Gastrointestinal: Yes: Normal Bowel Sounds, Soft Musculoskeletal: Yes: Muscle Weakness Extremities: Yes: WNL Edema: No Neurological: Yes: Alert, Oriented Psychiatric: Yes: Alert, Oriented Labs: CBC, BMP 05/13/19 08:10 05/13/19 08:10 Microbiology 05/09/19 16:30 Blood - Peripheral Venous Blood Culture - Preliminary NO GROWTH OBTAINED AFTER 72 HOURS, INCUBATION TO CONTINUE FOR 2 DAYS. 05/09/19 16:45 Blood - Peripheral Venous Blood Culture - Preliminary NO GROWTH OBTAINED AFTER 72 HOURS, INCUBATION TO CONTINUE FOR 2 DAYS. 04/26/19 16:00 Blood - Peripheral Venous Blood Culture - Final NO GROWTH AFTER 5 DAYS INCUBATION 04/26/19 16:00 Blood - Peripheral Venous Blood Culture - Final NO GROWTH AFTER 5 DAYS INCUBATION 04/27/19 07:00 Urine - Urine Clean Catch Urine Culture - Final Group D Strep Or Entero Coccus Problem List - Problems (1) Abdominal pain Assessment/Plan: -GI on board -Abd/Pelvic CT scan shows RLL consolidation/pneumonia, posteriorly, cannot rule out underlying pathology/mass, interval suggestion of a couple of low- attenuation lesions in the liver is suspicious of metastasis, residual thickening of sigmoid colon wall with evidence of diverticulosis, , residual tiny extraluminal air pockets posterior to sigmoid colon and questionable residual small collection inseperable from the proximal sigmoid colon wall , essentially stable is size previously visualized low attenuation masslike density in the left lower anterior pelvic wall -Pain control -patient is s/p Abscess drainage with IR 04/28/19 Code(s): R10.9 - UNSPECIFIED ABDOMINAL PAIN (2) Diabetes Assessment/Plan: -BGM ACHS -ISS -diabetic diet -A1c 5.4% Code(s): E11.9 - TYPE 2 DIABETES MELLITUS WITHOUT COMPLICATIONS (3) History of ESBL E. coli infection Assessment/Plan: -Contact precaution -ID on board Code(s): Z86.19 - PERSONAL HISTORY OF OTHER INFECTIOUS AND PARASITIC DISEASES (4) Metastatic lung cancer (metastasis from lung to other site) Assessment/Plan: -Fentanyl patch -Oncology on board -pain control Code(s): C34.90 - MALIGNANT NEOPLASM OF UNSP PART OF UNSP BRONCHUS OR LUNG Qualifiers: Laterality: left Qualified Code(s): C34.92 - Malignant neoplasm of unspecified part of left bronchus or lung (5) Pneumonia Assessment/Plan: -ID on board -afebrile -O2 via NC -keep SpO2 >90% -completed ABT Code(s): J18.9 - PNEUMONIA, UNSPECIFIED ORGANISM (6) Nausea Assessment/Plan: -zofran prn Code(s): R11.0 - NAUSEA (7) Hand pain, left Assessment/Plan: -ID on board -Vancomycin -repeat BC -WBC 22.1 -afebrile Code(s): M79.642 - PAIN IN LEFT HAND Assessment/Plan see problem list dvt ppx
--- NOTE | 2019-05-13 15:33 | PN ---
Progress Note, Physician History of Present Illness: Pt seen and examined at bedside. She is awake and appears comfortable. - Current Medication List Current Medications: Active Medications Acetaminophen (Tylenol -) 650 mg PO Q4H PRN PRN Reason: PAIN LEVEL 6-10 Last Admin: 05/10/19 09:59 Dose: 650 mg Docusate Sodium (Colace -) 100 mg PO DAILY [facility] Last Admin: 05/13/19 10:05 Dose: Not Given Fentanyl (Duragesic 50mcg Patch -) 1 patch TD Q72H [facility] Last Admin: 05/11/19 21:57 Dose: 1 patch Folic Acid (Folic Acid -) 1 mg PO DAILY [facility] Last Admin: 05/13/19 10:05 Dose: 1 mg Heparin Sodium (Porcine) (Heparin -) 5,000 unit SQ BID [facility] Last Admin: 05/13/19 10:05 Dose: 5,000 unit Potassium Chloride 20 meq/ (Amino Acids) 1,010 mls @ 42 mls/hr IVPB Q24H [facility] Last Admin: 05/12/19 17:28 Dose: 42 mls/hr Vancomycin HCl 750 mg/ (Dextrose) 250 mls @ 250 mls/hr IVPB Q24H [facility]; Protocol Stop: 05/13/19 17:00 Last Admin: 05/12/19 16:06 Dose: 250 mls/hr Insulin Aspart (Novolog Vial Sliding Scale -) 1 vial SQ ACHS [facility]; Protocol Last Admin: 05/13/19 10:57 Dose: Not Given Magnesium Oxide (Mag-Ox -) 400 mg PO BID [facility] Last Admin: 05/13/19 10:05 Dose: 400 mg Mirtazapine (Remeron -) 7.5 mg PO HS [facility] Last Admin: 05/12/19 21:37 Dose: 7.5 mg Miscellaneous (Duragesic Patch Waste) 1 each TD PRN PRN PRN Reason: PATCH REMOVAL Morphine Sulfate (Ms Contin -) 30 mg PO Q8H [facility] Last Admin: 05/13/19 13:57 Dose: 30 mg Nystatin (Mycostatin Ointment -) 1 applic TP BID [facility] Last Admin: 05/13/19 10:08 Dose: 1 applic Ondansetron HCl (Zofran -) 4 mg PO Q6H PRN PRN Reason: NAUSEA Pantoprazole Sodium (Protonix Iv) 40 mg IVPUSH BID [facility] Last Admin: 10/22/19 10:05 Dose: 40 mg Potassium Phos/Sodium Phos (Phos-Nak Packet -) 1 packet PO BID [facility] Last Admin: 05/13/19 10:05 Dose: 1 packet - Objective Vital Signs: Vital Signs Temperature 98.3 F 05/13/19 13:48 Pulse Rate 71 05/13/19 13:48 Respiratory Rate 18 05/13/19 13:48 Blood Pressure 105/56 L 05/13/19 13:48 O2 Sat by Pulse Oximetry (%) 95 05/12/19 21:00 Constitutional: Yes: Calm Eyes: Yes: Conjunctiva Clear HENT: Yes: Atraumatic Cardiovascular: Yes: S1, S2 Respiratory: Yes: CTA Bilaterally Gastrointestinal: Yes: Soft Genitourinary: Yes: WNL Musculoskeletal: Yes: WNL Edema: No Neurological: Yes: Oriented Labs: CBC, BMP 05/13/19 08:10 05/13/19 08:10 Assessment/Plan Current Medications Generic Name Dose Route Start Last Admin Trade Name Jonesq PRN Reason Stop Dose Admin Acetaminophen 650 mg 04/26/19 22:41 05/10/19 09:59 Tylenol - PO 650 mg Q4H PRN Administration PAIN LEVEL 6-10 Docusate Sodium 100 mg 05/06/19 16:45 05/13/19 10:05 Colace - PO Not Given DAILY [facility] Fentanyl 1 patch 04/26/19 22:45 05/11/19 21:57 Duragesic 50mcg Patch - TD 1 patch Q72H [facility] Administration Folic Acid 1 mg 04/27/19 10:00 05/13/19 10:05 Folic Acid - PO 1 mg DAILY [facility] Administration Heparin Sodium (Porcine) 5,000 unit 04/27/19 10:00 05/13/19 10:05 Heparin - SQ 5,000 unit BID [facility] Administration Potassium Chloride 20 meq/ 1,010 mls @ 42 mls/hr 05/02/19 17:00 05/12/19 17: 28 Amino Acids IVPB 42 mls/hr Q24H [facility] Administration Vancomycin HCl 750 mg/ 250 mls @ 250 mls/hr 05/09/19 16:00 05/12/19 16:06 Dextrose IVPB 05/13/19 17:00 250 mls/hr Q24H [facility] Administration Protocol Insulin Aspart 1 vial 04/27/19 07:00 05/13/19 10:57 Novolog Vial Sliding Scale - SQ Not Given ACHS [facility] Protocol Magnesium Oxide 400 mg 05/01/19 22:00 05/13/19 10:05 Mag-Ox - PO 400 mg BID [facility] Administration Mirtazapine 7.5 mg 05/04/19 22:00 05/12/19 21:37 Remeron - PO 7.5 mg HS [facility] Administration Miscellaneous 1 each 04/26/19 22:56 Duragesic Patch Waste TD PRN PRN PATCH REMOVAL Morphine Sulfate 30 mg 05/10/19 12:00 05/13/19 13:57 Ms Contin - PO 30 mg Q8H [facility] Administration Nystatin 1 applic 04/29/19 22:00 05/13/19 10:08 Mycostatin Ointment - TP 1 applic BID [facility] Administration Ondansetron HCl 4 mg 04/29/19 15:38 Zofran - PO Q6H PRN NAUSEA Pantoprazole Sodium 40 mg 04/27/19 14:57 05/13/19 10:05 Protonix Iv IVPUSH 40 mg BID [facility] Administration Potassium Phos/Sodium Phos 1 packet 05/01/19 22:00 05/13/19 10:05 Phos-Nak Packet - PO 1 packet BID [facility] Administration Impression 1. hypokalemia 2. lung cancer 3. DM 4. malnutrition 5. pna 6. malnutrition 7. r/o gout 8. hyponatremia 9. failure to thrive 10. cellulitis Plan - hold clinimix for tonight - repeat labs in am - will give a salt tab - check phos levels - will need to discuss overall goals of care
[2019-05-13] MEDS ORDERED: PT OWN MED DRAWER 7, Y5N ONE ×3 (16:11→22:33)
[2019-05-13] MEDS: VANCOMYCIN 750 MG in DEXTROSE 5%-WATER - 250 ML IVPB SCH (16:53)
[2019-05-13] MEDS: SODIUM CHLORIDE 1 GM TABLET PO SCH ×2 (18:03→22:34)
[2019-05-13] MEDS: MIRTAZAPINE 15 MG TABLET (FP) PO SCH (21:44)
[2019-05-14] MEDS: morphine SO4 SUSTAINED ACTING 30 MG TABLET.SA PO SCH ×3 (05:00→20:06)
[2019-05-14] MEDS: INSULIN SLIDING SCALE (NOVOLOG) 1 VIAL SQ SCH ×4 (06:18→21:21)
[2019-05-14 09:12] LABS: HEMATOCRIT 26.8 % (32.4-45.2); HEMOGLOBIN 8.6 GM/dL (10.7-15.3); MCH 27.9 pg (25.7-33.7); MCHC 32.2 g/dl (32.0-36.0); MEAN CELL VOLUME 86.8 fl (80-96); MEAN PLT VOLUME 7.1 fl (7.5-11.1); PLATELET COUNT 526 K/MM3 (134-434); RBC 3.09 M/mm3 (3.60-5.2); RDW 19.9 % (11.6-15.6); WHITE BLOOD COUNT 19.6 K/mm3 (4.0-10.0)
[2019-05-14] MEDS: PANTOPRAZOLE SODIUM 40 MG VIAL IVPUSH SCH ×2 (10:32→21:20)
[2019-05-14] MEDS: HEPARIN NA (PORCINE) 5,000 UNITS/ML 1ML VIAL SQ SCH ×2 (10:32→21:21)
[2019-05-14] MEDS: DOCUSATE SODIUM 100 MG CAPSULE (FP) PO SCH (10:32)
[2019-05-14] MEDS: NAPH,MB-DB/K PH,MBDB POWDER PACKET PO SCH ×2 (10:32→21:21)
[2019-05-14] MEDS: ACETAMINOPHEN 325 MG TABLET (FP) PO PRN (10:32)
[2019-05-14] MEDS: MAGNESIUM OXIDE 400 MG TABLET (FP) PO SCH ×2 (10:32→21:21)
[2019-05-14] MEDS: FOLIC ACID 1 MG TABLET (FP) PO SCH (10:32)
[2019-05-14 10:34] LABS: BILIRUBIN,TOTAL 0.3 mg/dL (0.2-1); CALCIUM 8.6 mg/dL (8.5-10.1); CREATININE 0.5 mg/dL (0.55-1.3); PHOSPHOROUS 3.4 mg/dL (2.5-4.9); POTASSIUM 4.5 mmol/L (3.5-5.1)
[2019-05-14] MEDS: NYSTATIN 100000 UNIT/GM TOPICAL OINTMENT 15 GM TUBE TP SCH ×2 (10:34→21:23)
--- NOTE | 2019-05-14 11:28 | DS ---
Physical Examination Vital Signs: Vital Signs Temperature 98.7 F 05/14/19 06:00 Pulse Rate 94 H 05/14/19 06:00 Respiratory Rate 20 05/13/19 21:00 Blood Pressure 116/57 L 05/14/19 06:00 O2 Sat by Pulse Oximetry (%) 96 05/13/19 21:00 Findings/Remarks: Laboratory Results - last 24 hr 05/13/19 05/13/19 05/14/19 17:22 22:28 05:29 WBC RBC Hgb Hct MCV MCH MCHC RDW Plt Count MPV Sodium Potassium Chloride Carbon Dioxide Anion Gap BUN Creatinine Est GFR (CKD-EPI)AfAm Est GFR (CKD-EPI)NonAf POC Glucometer 152 154 109 Random Glucose Calcium Phosphorus Magnesium Total Bilirubin AST ALT Alkaline Phosphatase Total Protein Albumin 05/14/19 05/14/19 08:45 08:45 WBC 19.6 H RBC 3.09 L Hgb 8.6 L Hct 26.8 L MCV 86.8 MCH 27.9 MCHC 32.2 RDW 19.9 H Plt Count 526 H MPV 7.1 L Sodium 132 L Potassium 4.5 Chloride 95 L Carbon Dioxide 31 Anion Gap 6 L BUN 13.0 Creatinine 0.5 L Est GFR (CKD-EPI)AfAm 108.20 Est GFR (CKD-EPI)NonAf 93.36 POC Glucometer Random Glucose 118 H Calcium 8.6 Phosphorus 3.4 Magnesium 2.0 Total Bilirubin 0.3 AST 17 ALT 17 Alkaline Phosphatase 284 H Total Protein 7.0 Albumin 2.0 L Active Medications Generic Name Dose Route Start Last Admin Trade Name Freq PRN Reason Stop Dose Admin Acetaminophen 650 mg 04/26/19 22:41 05/14/19 10:32 Tylenol - PO 650 mg Q4H PRN Administration PAIN LEVEL 6-10 Docusate Sodium 100 mg 05/06/19 16:45 05/14/19 10:32 Colace - PO Not Given DAILY [facility] Fentanyl 1 patch 04/26/19 22:45 05/11/19 21:57 Duragesic 50mcg Patch - TD 1 patch Q72H [facility] Administration Folic Acid 1 mg 04/27/19 10:00 05/14/19 10:32 Folic Acid - PO 1 mg DAILY [facility] Administration Heparin Sodium (Porcine) 5,000 unit 04/27/19 10:00 05/14/19 10:32 Heparin - SQ 5,000 unit BID [facility] Administration Insulin Aspart 1 vial 04/27/19 07:00 05/14/19 11:27 Novolog Vial Sliding Scale - SQ Not Given ACHS [facility] Protocol Magnesium Oxide 400 mg 05/01/19 22:00 05/14/19 10:32 Mag-Ox - PO 400 mg BID [facility] Administration Mirtazapine 7.5 mg 05/04/19 22:00 05/13/19 21:44 Remeron - PO 7.5 mg HS [facility] Administration Miscellaneous 1 each 04/26/19 22:56 Duragesic Patch Waste TD PRN PRN PATCH REMOVAL Morphine Sulfate 30 mg 05/10/19 12:00 05/14/19 05:00 Ms Contin - PO 30 mg Q8H [facility] Administration Nystatin 1 applic 04/29/19 22:00 05/14/19 10:34 Mycostatin Ointment - TP 1 applic BID [facility] Administration Ondansetron HCl 4 mg 04/29/19 15:38 Zofran - PO Q6H PRN NAUSEA Pantoprazole Sodium 40 mg 04/27/19 14:57 05/14/19 10:32 Protonix Iv IVPUSH 40 mg BID [facility] Administration Potassium Phos/Sodium Phos 1 packet 05/01/19 22:00 05/14/19 10:32 Phos-Nak Packet - PO 1 packet BID [facility] Administration Microbiology 05/09/19 16:45 Blood - Peripheral Venous Blood Culture - Preliminary NO GROWTH OBTAINED AFTER 96 HOURS, INCUBATION TO CONTINUE FOR 1 DAYS. 05/09/19 16:30 Blood - Peripheral Venous Blood Culture - Preliminary NO GROWTH OBTAINED AFTER 96 HOURS, INCUBATION TO CONTINUE FOR 1 DAYS. 04/26/19 16:00 Blood - Peripheral Venous Blood Culture - Final NO GROWTH AFTER 5 DAYS INCUBATION 04/26/19 16:00 Blood - Peripheral Venous Blood Culture - Final NO GROWTH AFTER 5 DAYS INCUBATION 04/27/19 07:00 Urine - Urine Clean Catch Urine Culture - Final Group D Strep Or Entero Coccus Constitutional: Yes: No Distress, Calm Eyes: Yes: Conjunctiva Clear HENT: Yes: Atraumatic Cardiovascular: Yes: Regular Rate and Rhythm Respiratory: Yes: Regular, CTA Bilaterally Gastrointestinal: Yes: Normal Bowel Sounds, Soft Musculoskeletal: Yes: Muscle Weakness Extremities: Yes: WNL Edema: No Neurological: Yes: Alert, Oriented, Pre-Existing Deficit Psychiatric: Yes: Alert, Oriented Labs: CBC, BMP 05/14/19 08:45 05/14/19 08:45 Discharge Summary Problems reviewed: Yes Reason For Visit: DIVERTICULITIS Current Active Problems Acute diverticulitis (Acute) Electrolyte abnormality (Acute) Hand pain, left (Acute) Nausea (Acute) Pneumonia (Acute) Hospital Course: Patient is a 79 y/o female with past history of Metastatic Lung CA on Keytuda and palliative radiation, HLD, DM, SIADH, Chronic Abdominal Pain , and frequent UTIs. She presented to hospital after 1 week mid-epigastric/left sided abdominal pain. Pain has been progressively getting worse and described as throbbing. Patient was treated with IV antibiotics and started on PPI and pain has improved. Completed antibiotic course. Patient will be discharged home with Home Hospice services. Condition: Fair - Instructions Diet, Activity, Other Instructions: follow up [facility] PMD in 1 week follow up [facility] oncology as scheduled continue with medication as prescribed return to ER if develop severe pain, respiratory distress, chest pain, altered mental status Referrals: Lauro Donahue [Primary Care Provider] - Usha Pollack MD [Staff Physician] - Disposition: VNS/HOME HEALTH CARE - Home Medications Comprehensive Discharge Medication List: Ambulatory Orders Rosuvastatin [Crestor -] 10 mg PO DAILY 07/25/18 Folic Acid - 1 mg PO DAILY #30 tablet 07/31/18 Ferrous Sulfate [Feosol] 325 mg PO DAILY #30 ud 02/06/19 FENTANYL 50mcg PATCH [DURAGESIC 50 mcg PATCH -] 1 patch TD Q72H #10 patch.td72 MDD 1 04/09/19 Polyethylene Glycol 3350 [Glycolax] 17 gm PO DAILY 04/26/19 Fentanyl Patch Waste [Duragesic Patch Waste] 1 each TD PRN PRN each 05/05/19 Heparin - 5,000 unit SQ BID vial 05/05/19 Insulin Sliding Scale [Novolog Vial Sliding Scale -] 1 vial SQ ACHS units 05/05 Magnesium Oxide [Mag-Ox -] 400 mg PO BID tablet 05/05/19 Mirtazapine [Remeron -] 7.5 mg PO HS tablet 05/05/19 Naph,Mb-Db/K pH,Mbdb [PHOS-NaK PACKET -] 1 packet PO BID pow 05/05/19 Nystatin Ointment [Mycostatin Ointment -] 1 applic TP BID applic 05/05/19 Ondansetron [Zofran -] 4 mg PO Q6H PRN tablet 05/05/19
[2019-05-14] MEDS ORDERED: SODIUM CHLORIDE 1 GM TABLET PO ONE (12:18)
--- NOTE | 2019-05-14 12:18 | PN ---
Progress Note, Physician History of Present Illness: Pt seen and examined at bedside. She is awake and alert. Her left hand pain is resolved. - Current Medication List Current Medications: Active Medications Acetaminophen (Tylenol -) 650 mg PO Q4H PRN PRN Reason: PAIN LEVEL 6-10 Last Admin: 05/14/19 10:32 Dose: 650 mg Docusate Sodium (Colace -) 100 mg PO DAILY [facility] Last Admin: 05/14/19 10:32 Dose: Not Given Fentanyl (Duragesic 50mcg Patch -) 1 patch TD Q72H [facility] Last Admin: 05/11/19 21:57 Dose: 1 patch Folic Acid (Folic Acid -) 1 mg PO DAILY [facility] Last Admin: 05/14/19 10:32 Dose: 1 mg Heparin Sodium (Porcine) (Heparin -) 5,000 unit SQ BID [facility] Last Admin: 05/14/19 10:32 Dose: 5,000 unit Insulin Aspart (Novolog Vial Sliding Scale -) 1 vial SQ [facility]; Protocol Last Admin: 05/14/19 11:27 Dose: Not Given Magnesium Oxide (Mag-Ox -) 400 mg PO BID [facility] Last Admin: 05/14/19 10:32 Dose: 400 mg Mirtazapine (Remeron -) 7.5 mg PO HS [facility] Last Admin: 05/13/19 21:44 Dose: 7.5 mg Miscellaneous (Duragesic Patch Waste) 1 each TD PRN PRN PRN Reason: PATCH REMOVAL Morphine Sulfate (Ms Contin -) 30 mg PO Q8H [facility] Last Admin: 05/14/19 12:12 Dose: 30 mg Nystatin (Mycostatin Ointment -) 1 applic TP BID [facility] Last Admin: 05/14/19 10:34 Dose: 1 applic Ondansetron HCl (Zofran -) 4 mg PO Q6H PRN PRN Reason: NAUSEA Pantoprazole Sodium (Protonix Iv) 40 mg IVPUSH BID [facility] Last Admin: 05/14/19 10:32 Dose: 40 mg Potassium Phos/Sodium Phos (Phos-Nak Packet -) 1 packet PO BID [facility] Last Admin: 05/14/19 10:32 Dose: 1 packet - Objective Vital Signs: Vital Signs Temperature 98.7 F 05/14/19 06:00 Pulse Rate 94 H 05/14/19 06:00 Respiratory Rate 20 05/13/19 21:00 Blood Pressure 116/57 L 05/14/19 06:00 O2 Sat by Pulse Oximetry (%) 96 05/13/19 21:00 Constitutional: Yes: Calm Eyes: Yes: Conjunctiva Clear HENT: Yes: Atraumatic Neck: Yes: Supple Cardiovascular: Yes: S1, S2 Respiratory: Yes: CTA Bilaterally Gastrointestinal: Yes: Soft Genitourinary: Yes: WNL Edema: No Neurological: Yes: Oriented Labs: CBC, BMP 05/14/19 08:45 05/14/19 08:45 Assessment/Plan Current Medications Generic Name Dose Route Start Last Admin Trade Name Freq PRN Reason Stop Dose Admin Acetaminophen 650 mg 04/26/19 22:41 05/14/19 10:32 Tylenol - PO 650 mg Q4H PRN Administration PAIN LEVEL 6-10 Docusate Sodium 100 mg 05/06/19 16:45 05/14/19 10:32 Colace - PO Not Given DAILY [facility] Fentanyl 1 patch 04/26/19 22:45 05/11/19 21:57 Duragesic 50mcg Patch - TD 1 patch Q72H [facility] Administration Folic Acid 1 mg 04/27/19 10:00 05/14/19 10:32 Folic Acid - PO 1 mg DAILY [facility] Administration Heparin Sodium (Porcine) 5,000 unit 04/27/19 10:00 05/14/19 10:32 Heparin - SQ 5,000 unit BID [facility] Administration Insulin Aspart 1 vial 04/27/19 07:00 05/14/19 11:27 Novolog Vial Sliding Scale - SQ Not Given ACHS [facility] Protocol Magnesium Oxide 400 mg 05/01/19 22:00 05/14/19 10:32 Mag-Ox - PO 400 mg BID [facility] Administration Mirtazapine 7.5 mg 05/04/19 22:00 05/13/19 21:44 Remeron - PO 7.5 mg HS [facility] Administration Miscellaneous 1 each 04/26/19 22:56 Duragesic Patch Waste TD PRN PRN PATCH REMOVAL Morphine Sulfate 30 mg 05/10/19 12:00 05/14/19 12:12 Ms Contin - PO 30 mg Q8H [facility] Administration Nystatin 1 applic 04/29/19 22:00 05/14/19 10:34 Mycostatin Ointment - TP 1 applic BID [facility] Administration Ondansetron HCl 4 mg 04/29/19 15:38 Zofran - PO Q6H PRN NAUSEA Pantoprazole Sodium 40 mg 04/27/19 14:57 05/14/19 10:32 Protonix Iv IVPUSH 40 mg BID [facility] Administration Potassium Phos/Sodium Phos 1 packet 05/01/19 22:00 05/14/19 10:32 Phos-Nak Packet - PO 1 packet BID [facility] Administration Impression 1. hypokalemia 2. lung cancer 3. DM 4. malnutrition 5. pna 6. cellulitis 7. r/o gout 8. hyponatremia 9. failure to thrive Plan - sodium is improving - encourage PO intake - discussed with family - labs reviewed - will give a salt tab today - monitor lytes
[2019-05-14] MEDS: MIRTAZAPINE 15 MG TABLET (FP) PO SCH (21:19)
[2019-05-14] MEDS: fentaNYL 50mcg/hr PATCH.TD72 TD SCH (23:10)
[2019-05-15] MEDS: morphine SO4 SUSTAINED ACTING 30 MG TABLET.SA PO SCH ×2 (04:05→11:37)
[2019-05-15] MEDS: INSULIN SLIDING SCALE (NOVOLOG) 1 VIAL SQ SCH (06:22)
[2019-05-15 06:29] VITALS: BP 100/52; PULSE 109; TEMP 99.9
[2019-05-15] MEDS: FOLIC ACID 1 MG TABLET (FP) PO SCH (10:14)
[2019-05-15] MEDS: MAGNESIUM OXIDE 400 MG TABLET (FP) PO SCH (10:14)
[2019-05-15] MEDS: DOCUSATE SODIUM 100 MG CAPSULE (FP) PO SCH (10:14)
[2019-05-15] MEDS: PANTOPRAZOLE SODIUM 40 MG VIAL IVPUSH SCH (10:15)
[2019-05-15] MEDS: NYSTATIN 100000 UNIT/GM TOPICAL OINTMENT 15 GM TUBE TP SCH (10:15)
[2019-05-15] MEDS: NAPH,MB-DB/K PH,MBDB POWDER PACKET PO SCH (10:15)
[2019-05-15] MEDS: HEPARIN NA (PORCINE) 5,000 UNITS/ML 1ML VIAL SQ SCH (10:15)
--- NOTE | 2019-05-15 11:24 | PN ---
Progress Note, Physician Chief Complaint: Abdominal Pain History of Present Illness: Previous notes and events reviewed awake and alert NAD no acute events overnight denies chest pain or SOB patient is being discharged home today with home hospice - Current Medication List Current Medications: Active Medications Acetaminophen (Tylenol -) 650 mg PO Q4H PRN PRN Reason: PAIN LEVEL 6-10 Last Admin: 05/14/19 10:32 Dose: 650 mg Docusate Sodium (Colace -) 100 mg PO DAILY [facility] Last Admin: 05/15/19 10:14 Dose: 100 mg Fentanyl (Duragesic 50mcg Patch -) 1 patch TD Q72H [facility] Last Admin: 05/14/19 23:10 Dose: 1 patch Folic Acid (Folic Acid -) 1 mg PO DAILY [facility] Last Admin: 05/15/19 10:14 Dose: 1 mg Heparin Sodium (Porcine) (Heparin -) 5,000 unit SQ BID [facility] Last Admin: 05/15/19 10:15 Dose: 5,000 unit Insulin Aspart (Novolog Vial Sliding Scale -) 1 vial SQ [facility]; Protocol Last Admin: 05/15/19 06:22 Dose: Not Given Magnesium Oxide (Mag-Ox -) 400 mg PO BID [facility] Last Admin: 05/15/19 10:14 Dose: 400 mg Mirtazapine (Remeron -) 7.5 mg PO HS [facility] Last Admin: 05/14/19 21:19 Dose: 7.5 mg Miscellaneous (Duragesic Patch Waste) 1 each TD PRN PRN PRN Reason: PATCH REMOVAL Morphine Sulfate (Ms Contin -) 30 mg PO Q8H [facility] Last Admin: 05/15/19 04:05 Dose: 30 mg Nystatin (Mycostatin Ointment -) 1 applic TP BID [facility] Last Admin: 05/15/19 10:15 Dose: 1 applic Ondansetron HCl (Zofran -) 4 mg PO Q6H PRN PRN Reason: NAUSEA Pantoprazole Sodium (Protonix Iv) 40 mg IVPUSH BID [facility] Last Admin: 05/15/19 10:15 Dose: 40 mg Potassium Phos/Sodium Phos (Phos-Nak Packet -) 1 packet PO BID [facility] Last Admin: 05/15/19 10:15 Dose: 1 packet - Objective Vital Signs: Vital Signs Temperature 99.9 F H 05/15/19 06:00 Pulse Rate 109 H 05/15/19 06:00 Respiratory Rate 20 05/15/19 09:00 Blood Pressure 100/52 L 05/15/19 06:00 O2 Sat by Pulse Oximetry (%) 97 05/15/19 09:00 Constitutional: Yes: No Distress, Calm Eyes: Yes: Conjunctiva Clear HENT: Yes: Atraumatic Cardiovascular: Yes: Regular Rate and Rhythm Respiratory: Yes: Regular, CTA Bilaterally Gastrointestinal: Yes: Normal Bowel Sounds, Soft Musculoskeletal: Yes: WNL Extremities: Yes: WNL Edema: No Neurological: Yes: Alert, Oriented Psychiatric: Yes: Alert, Oriented Labs: CBC, BMP 05/14/19 08:45 05/14/19 08:45 Problem List - Problems (1) Abdominal pain Code(s): R10.9 - UNSPECIFIED ABDOMINAL PAIN (2) Diabetes Code(s): E11.9 - TYPE 2 DIABETES MELLITUS WITHOUT COMPLICATIONS (3) History of ESBL E. coli infection Code(s): Z86.19 - PERSONAL HISTORY OF OTHER INFECTIOUS AND PARASITIC DISEASES (4) Metastatic lung cancer (metastasis from lung to other site) Code(s): C34.90 - MALIGNANT NEOPLASM OF UNSP PART OF UNSP BRONCHUS OR LUNG Qualifiers: Laterality: left Qualified Code(s): C34.92 - Malignant neoplasm of unspecified part of left bronchus or lung (5) Pneumonia Code(s): J18.9 - PNEUMONIA, UNSPECIFIED ORGANISM (6) Nausea Code(s): R11.0 - NAUSEA (7) Hand pain, left Code(s): M79.642 - PAIN IN LEFT HAND Assessment/Plan see problem list
== END 2019-05-15 12:35 | disposition home health service (06) | DRG 374 ==
LOC: JER 14:50 → JERBED 20:02 → J6S 21:37
PROVIDERS: ADMIT Internal Medicine; ATTEND Family Medicine
DX: C78.89 Secondary malignant neoplasm of other digestive organs (principal); J18.9 Pneumonia, unspecified organism; C34.90 Malignant neoplasm of unspecified part of unspecified bronchus or lung; C79.51 Secondary malignant neoplasm of bone; K57.92 Diverticulitis of intestine, part unspecified, without perforation or abscess without bleeding; N39.0 Urinary tract infection, site not specified; E46 Unspecified protein-calorie malnutrition; E87.1 Hypo-osmolality and hyponatremia; R64 Cachexia; L03.114 Cellulitis of left upper limb; C78.7 Secondary malignant neoplasm of liver and intrahepatic bile duct; R11.0 Nausea; D69.6 Thrombocytopenia, unspecified; E78.5 Hyperlipidemia, unspecified; E11.9 Type 2 diabetes mellitus without complications; E87.6 Hypokalemia; Z68.20 Body mass index [BMI] 20.0-20.9, adult; R62.7 Adult failure to thrive; M79.642 Pain in left hand; D64.9 Anemia, unspecified; D72.829 Elevated white blood cell count, unspecified
CPT/HCPCS: 10030; 36415; 71045-TC-FY; 73110-TC-LT-FY; 73130-TC-LT-FY; 74177-TC; 76098-TC-FY; 76705-TC; 77012-TC; 80048; 80053; 82150; 82550; 82607; 82728; 82746; 82962; 82977; 83036; 83540; 83550; 83605; 83690; 83735; 84100; 84134; 84484; 84550; 85025; 85027; 85651; 86140; 87040; 87086; 87899; 88108; 88305-TC; 88341-TC; 88342-TC; 93005; 93010; 97116-GP; 97161-GP; 99285-25; J1644; J1756; J7030

== ENCOUNTER 2019-05-22 13:00 | Day surgery (SDC) | payer OTHER ==
[2019-05-22 12:38] LABS: BASO % 0.4 % (0-2.0); EOS % 2.4 % (0-4.5); HEMOGLOBIN 9.6 GM/dL (10.7-15.3); LYMPH % 6.1 % (8-40); MCH 27.7 pg (25.7-33.7); MCHC 32.1 g/dl (32.0-36.0); MEAN CELL VOLUME 86.2 fl (80-96); MEAN PLT VOLUME 6.8 fl (7.5-11.1); MONO % 5.6 % (3.8-10.2); NEUT % 85.5 % (42.8-82.8); PLATELET COUNT 619 K/MM3 (134-434); RBC 3.48 M/mm3 (3.60-5.2); RDW 18.7 % (11.6-15.6); WHITE BLOOD COUNT 24.2 K/mm3 (4.0-10.0)
[2019-05-22 13:04] LABS: BILIRUBIN,TOTAL 0.4 mg/dL (0.2-1); BLOOD UREA NITROGEN 5.1 mg/dL (7-18); CALCIUM 8.3 mg/dL (8.5-10.1); CREATININE 0.4 mg/dL (0.55-1.3); MAGNESIUM 2.1 mg/dL (1.8-2.4); POTASSIUM 4.2 mmol/L (3.5-5.1); TOT PROT 7.2 g/dl (6.4-8.2)
[2019-05-22 13:24] LABS: ANISOCYTOSIS 2+; MACROCYTOSIS 0; PLATELET ESTIMATE NORMAL; TARGET CELLS 1+
[2019-05-22] MEDS ORDERED: PORTA CATH FLUSH 10 ML IVPUSH PRN (14:34)
[2019-05-22] MEDS ORDERED: morphine SO4 SUSTAINED ACTING 15 MG TABLET.SA PO PRN (14:40)
[2019-05-22] MEDS ORDERED: fentaNYL 50mcg/hr PATCH.TD72 TD SCH (14:45)
[2019-05-22] MEDS ORDERED: SODIUM CHLORIDE 1,000 ML IV ONE (14:45)
[2019-05-22 22:36] VITALS: BP 111/46; PULSE 97; TEMP 98.6
== END 2019-05-22 21:00 | disposition home or self-care (01) ==
LOC: JONCNONCHE 13:00 → J7W 13:24 → JONCNONCHE 21:00
PROVIDERS: ATTEND Internal Medicine Hematology & Oncology
PROC: 3E0437Z Introduction of Electrolytic and Water Balance Substance into Central Vein, Percutaneous Approach (ICD-10-PCS; principal; 2019-05-22)
DX: Z76.89 Persons encountering health services in other specified circumstances (principal); C80.1 Malignant (primary) neoplasm, unspecified
CPT/HCPCS: 36415; 80053; 83735; 85025; 96360; 96361; J7030